=== PATIENT | female | born 1965 | race Caucasian/White ===

== ENCOUNTER → 2016-09-15 | Outpatient (CLI) | payer OTHER ==
[~2016-09-15] MED LIST: *BLDWK8; *CXR; *NEBULIZER; ACET500C; ADV250INH INH; ADVAIR100 INHALATION; ADVAIR200 INHALATION; ALBOTERNEB INHALATION; ALBUTEROL INHALATION; ALCOHOL TOP; ASP81 PO; ASPI81TA7 PO; AUG875 PO; CEFTIN500 PO; CELEBRE200 PO; FLAG500T PO; GLUCOPH500 PO; HABITROL14 TOPICAL; HABITROL2 TOPICAL; HABITROL7 TOPICAL; INSULANT SC; LANCMIS; LEVO500T PO; LISI5TAB PO; LISINOPR10 PO; NAPR500T2 PO; NEBTUBING PO; PREDNISO20 PO; PRILOSEC40 PO; PROAAER INH; TYLE325T5 PO; VICO5TAB; ZOCOR20 PO; ZOCOR40 PO; [UNRECOGNIZED DRUG - CODE] PO; [UNRECOGNIZED DRUG - CODE] PO; [UNRECOGNIZED DRUG - CODE] PO; [UNRECOGNIZED DRUG - OTHER]; [UNRECOGNIZED DRUG - OTHER]; [UNRECOGNIZED DRUG - OTHER] PO; [UNRECOGNIZED DRUG - OTHER] PO; [UNRECOGNIZED DRUG - OTHER] TOPICAL
[2016-09-15 14:26] LABS: ALBUMIN 2.5 GM/DL (3.2-5.2); ALBUMIN/GLOBULIN RATIO 0.81 (1.00-1.93); ALKALINE PHOSPHATASE 81 U/L (45-117); ALT/SGPT 14 U/L (12-78); ANION GAP 5 MEQ/L (8-16); AST/SGOT 15 U/L (15-37); BILIRUBIN,TOTAL 0.2 MG/DL (0.2-1.0); BLOOD UREA NITROGEN 5 MG/DL (7-18); CALCIUM LEVEL 8.2 MG/DL (8.5-10.1); CARBON DIOXIDE LEVEL 30 MEQ/L (21-32); CHLORIDE LEVEL 102 MEQ/L (98-107); CHOLESTEROL LEVEL 192 MG/DL (<200); CREATININE FOR GFR 0.63 MG/DL (0.55-1.02); GLOMERULAR FILTRATION RATE > 60.0 (>51); GLUCOSE, FASTING 259 MG/DL (70-105); POTASSIUM SERUM 3.8 MEQ/L (3.5-5.1); SODIUM LEVEL 137 MEQ/L (136-145); TOTAL PROTEIN 5.6 GM/DL (6.4-8.2); TRIGLYCERIDES LEVEL 444 MG/DL (<150)
== END ==
LOC: M LAB 12:57
PROVIDERS: ATTEND Family Medicine Addiction Medicine
DX: E78.5 Hyperlipidemia, unspecified (principal)

== ENCOUNTER → 2017-01-11 | Outpatient (REF) | payer OTHER ==
[2017-01-11 14:52] LABS: ALBUMIN 2.7 GM/DL (3.2-5.2); ALBUMIN/GLOBULIN RATIO 0.77 (1.00-1.93); ALKALINE PHOSPHATASE 103 U/L (45-117); ALT/SGPT 13 U/L (12-78); ANION GAP 6 MEQ/L (8-16); AST/SGOT 8 U/L (15-37); BILIRUBIN,TOTAL 0.2 MG/DL (0.2-1.0); BLOOD UREA NITROGEN 6 MG/DL (7-18); CARBON DIOXIDE LEVEL 33 MEQ/L (21-32); CHLORIDE LEVEL 95 MEQ/L (98-107); CHOLESTEROL LEVEL 229 MG/DL (<200); GLOMERULAR FILTRATION RATE > 60.0 (>51); GLUCOSE, FASTING 375 MG/DL (70-105); SODIUM LEVEL 134 MEQ/L (136-145); TOTAL PROTEIN 6.2 GM/DL (6.4-8.2); TRIGLYCERIDES LEVEL 606 MG/DL (<150)
== END ==
LOC: M LAB REF 13:49
PROVIDERS: ATTEND Family Medicine Addiction Medicine
DX: E03.8 Other specified hypothyroidism (principal)

== ENCOUNTER → 2017-01-11 | Outpatient (REF) | payer OTHER ==
[2017-01-11 14:27] LABS: ANION GAP 7 MEQ/L (8-16); BLOOD UREA NITROGEN 6 MG/DL (7-18); CALCIUM LEVEL 9.1 MG/DL (8.5-10.1); CARBON DIOXIDE LEVEL 33 MEQ/L (21-32); CHLORIDE LEVEL 94 MEQ/L (98-107); CREATININE FOR GFR 0.78 MG/DL (0.55-1.02); GLOMERULAR FILTRATION RATE > 60.0 (>51); GLUCOSE, FASTING 378 MG/DL (70-105); POTASSIUM SERUM 4.1 MEQ/L (3.5-5.1); SODIUM LEVEL 134 MEQ/L (136-145)
== END ==
LOC: M LAB REF 13:38
PROVIDERS: ATTEND Internal Medicine Rheumatology
DX: E87.5 Hyperkalemia (principal)

== ENCOUNTER 2018-06-06 13:23 | Emergency (ER) | payer OTHER ==
[~2018-06-06] VITALS: Ht 149.9 cm; Wt 67.7 kg
[2018-06-06] MEDS ORDERED: CLAR10CA3 PO (14:02)
[2018-06-06] MEDS ORDERED: FURO20TA2 PO (14:02)
[2018-06-06] MEDS ORDERED: MAGN400T2 PO (14:02)
--- NOTE | 2018-06-06 14:03 | REP ---
Clinical: Acute headache with nausea and vomiting . Comparison: 06/30/2015 . Findings: The ventricles, sulci, and cisterns are normal in position and appearance. Garcia-white differentiation is maintained. No acute intracranial hemorrhage, mass/mass effect, pathology or trauma/injury. No evidence for acute infarction. No extra-axial fluid collection. Calvarium is intact. Paranasal sinuses and mastoid air cells are clear. Impression: Normal noncontrast head CT. No evidence for acute intracranial pathology or trauma/injury. Electronically Signed by Antonio Kirkpatrick MD 06/06/2018 01:54 P
[2018-06-06] MEDS ORDERED: REGL10TA6 PO (14:18)
[2018-06-06 14:26] VITALS: BP 124/65
== END 2018-06-06 14:29 | disposition home or self-care (01) ==
LOC: M ED 13:23
DX: R51 Headache (principal); Z86.73 Personal history of transient ischemic attack (TIA), and cerebral infarction without residual deficits; E11.9 Type 2 diabetes mellitus without complications; F17.200 Nicotine dependence, unspecified, uncomplicated; Z79.899 Other long term (current) drug therapy

== ENCOUNTER → 2019-05-09 | Outpatient (REF) | payer OTHER, MEDICAID ==
[~2019-05-09] MED LIST changes: +CLAR10CA3 PO; +FURO20TA2 PO; +MAGN400T2 PO; +REGL10TA6 PO
[2019-05-09 13:25] LABS: BASO # 0.1 10^3/uL (0.0-0.2); BASO % 0.8 % (0.0-1.0); EOS # 0.1 10^3/uL (0.0-0.5); EOS % 1.3 % (0.0-3.0); HEMATOCRIT 44.1 % (36.0-47.0); HEMOGLOBIN 14.4 g/dl (12.0-15.5); LYMPH # 3.5 10^3/uL (1.5-5.0); LYMPH % 39.2 % (24.0-44.0); MEAN CORPUSCULAR HEMOGLOBIN 28.3 pg (27.0-33.0); MEAN CORPUSCULAR HGB CONC 32.7 g/dl (32.0-36.5); MEAN CORPUSCULAR VOLUME 86.8 fl (80.0-96.0); MONO # 0.4 10^3/uL (0.0-0.8); MONO % 4.9 % (0.0-5.0); NEUTROPHILS # 4.8 10^3/uL (1.5-8.5); NEUTROPHILS % 53.5 % (36.0-66.0); PLATELET COUNT, AUTOMATED 282 10^3/uL (150-450); RED BLOOD COUNT 5.08 10^6/uL (4.00-5.40)
[2019-05-09 13:44] LABS: HEMOGLOBIN A1c 7.7 %
[2019-05-09 13:50] LABS: ALBUMIN 3.4 GM/DL (3.2-5.2); ALT/SGPT 26 U/L (12-78); BILIRUBIN,TOTAL 0.4 MG/DL (0.2-1.0); BLOOD UREA NITROGEN 14 MG/DL (7-18); CALCIUM LEVEL 9.6 MG/DL (8.5-10.1); CARBON DIOXIDE LEVEL 28 MEQ/L (21-32); CHLORIDE LEVEL 110 MEQ/L (98-107); CHOLESTEROL LEVEL 217 MG/DL (<200); CHOLESTEROL RISK RATIO 6.575 (<5); CREATININE FOR GFR 0.87 MG/DL (0.55-1.30); FREE T4 0.97 NG/DL (0.76-1.46); GLOMERULAR FILTRATION RATE > 60.0 (>51); GLUCOSE, FASTING 148 MG/DL (70-100); HDL CHOLESTEROL 33 MG/DL (>40); LDL CHOLESTEROL 133 MG/DL (<100); NON-HDL-C 184 MG/DL; POTASSIUM SERUM 4.9 MEQ/L (3.5-5.1); SODIUM LEVEL 142 MEQ/L (136-145); TOTAL PROTEIN 6.6 GM/DL (6.4-8.2); TRIGLYCERIDES LEVEL 254 MG/DL (<150)
== END ==
LOC: M LAB REF 12:56
PROVIDERS: ATTEND Nurse Practitioner Family
DX: E11.9 Type 2 diabetes mellitus without complications (principal); E55.9 Vitamin D deficiency, unspecified; E03.8 Other specified hypothyroidism

== ENCOUNTER → 2020-02-02 | Outpatient (REF) | payer OTHER, MEDICAID ==
[2020-02-02 13:11] LABS: APPEARANCE, URINE CLEAR (CLEAR); BACTERIA, URINE AUTO 1+ (NEGATIVE); BILIRUBIN, URINE AUTO NEGATIVE (NEGATIVE); BLOOD, URINE BLOOD NEGATIVE (NEGATIVE); COLOR, URINE YELLOW (YELLOW); GLUCOSE, URINE (UA) AUTO NEGATIVE (NEGATIVE); KETONE, URINE AUTO NEGATIVE (NEGATIVE); LEUKOCYTE ESTERASE, URINE AUTO NEGATIVE (NEGATIVE); NITRITE, URINE AUTO NEGATIVE (NEGATIVE); PROTEIN, URINE AUTO NEGATIVE (NEGATIVE); RBC, URINE AUTO 1 /HPF (0-3); SPECIFIC GRAVITY URINE AUTO 1.009 (1.002-1.035); SQUAMOUS EPITHELIAL CELL UR AU 1 /HPF (0-6); UROBILINOGEN, URINE AUTO 0.2 mg/dL (0.0-2.0); WBC, URINE AUTO 2 /HPF (0-3)
[2020-02-02 13:24] LABS: ALBUMIN 3.4 GM/DL (3.2-5.2); ALT/SGPT 46 U/L (12-78); BASO # 0.1 10^3/uL (0.0-0.2); BASO % 0.7 % (0.0-1.0); BILIRUBIN,TOTAL 0.2 MG/DL (0.2-1.0); BLOOD UREA NITROGEN 25 MG/DL (7-18); CALCIUM LEVEL 9.2 MG/DL (8.5-10.1); CARBON DIOXIDE LEVEL 30 MEQ/L (21-32); CHLORIDE LEVEL 106 MEQ/L (98-107); CHOLESTEROL LEVEL 164 MG/DL (<200); CREATININE FOR GFR 0.96 MG/DL (0.55-1.30); EOS # 0.1 10^3/uL (0.0-0.5); EOS % 1.6 % (0.0-3.0); GLOMERULAR FILTRATION RATE > 60.0 (>51); GLUCOSE, FASTING 156 MG/DL (70-100); HDL CHOLESTEROL 41 MG/DL (>40); HEMATOCRIT 35.6 % (36.0-47.0); HEMOGLOBIN 11.8 g/dl (12.0-15.5); LDL CHOLESTEROL 82 MG/DL (<100); LYMPH # 2.8 10^3/uL (1.5-5.0); LYMPH % 36.9 % (24.0-44.0); MEAN CORPUSCULAR HEMOGLOBIN 29.1 pg (27.0-33.0); MEAN CORPUSCULAR HGB CONC 33.1 g/dl (32.0-36.5); MEAN CORPUSCULAR VOLUME 87.7 fl (80.0-96.0); MONO # 0.5 10^3/uL (0.0-0.8); NEUTROPHILS # 4.2 10^3/uL (1.5-8.5); NEUTROPHILS % 54.5 % (36.0-66.0); NON-HDL-C 123 MG/DL; PLATELET COUNT, AUTOMATED 264 10^3/uL (150-450); POTASSIUM SERUM 4.9 MEQ/L (3.5-5.1); RED BLOOD COUNT 4.06 10^6/uL (4.00-5.40); SODIUM LEVEL 140 MEQ/L (136-145); TOTAL PROTEIN 6.5 GM/DL (6.4-8.2); TRIGLYCERIDES LEVEL 206 MG/DL (<150); WHITE BLOOD COUNT 7.6 10^3/uL (4.0-10.0)
[2020-02-02 13:27] LABS: TOTAL 25(OH) VITAMIN D 23.4 NG/ML (30.0-100.0)
[2020-02-02 13:59] LABS: HEMOGLOBIN A1c 7.5 %
[2020-02-02 14:08] LABS: CREATININE, URINE 62.3 MG/DL; MALB URINE SIEMENS 81.4 MG/L; MAU/CREAT RATIO 130.6 MCG/MG (0.0-30.0)
== END ==
LOC: M LAB REF 09:05 → MERGE 09:05
PROVIDERS: ATTEND Physician Assistant
DX: M54.9 Dorsalgia, unspecified (principal); Z79.4 Long term (current) use of insulin; S06.9X9S Unspecified intracranial injury with loss of consciousness of unspecified duration, sequela; X58.XXXS Exposure to other specified factors, sequela; E03.8 Other specified hypothyroidism; E78.5 Hyperlipidemia, unspecified

== ENCOUNTER → 2020-05-10 | Outpatient (REF) | payer OTHER, MEDICAID ==
[2020-05-10 17:36] LABS: HEMATOCRIT 38.8 % (36.0-47.0); HEMOGLOBIN 12.3 g/dl (12.0-15.5); MEAN CORPUSCULAR HEMOGLOBIN 28.9 pg (27.0-33.0); MEAN CORPUSCULAR HGB CONC 31.7 g/dl (32.0-36.5); MEAN CORPUSCULAR VOLUME 91.3 fl (80.0-96.0); PLATELET COUNT, AUTOMATED 266 10^3/uL (150-450); RED BLOOD COUNT 4.25 10^6/uL (4.00-5.40); WHITE BLOOD COUNT 7.6 10^3/uL (4.0-10.0)
[2020-05-10 17:52] LABS: ALBUMIN 3.5 GM/DL (3.2-5.2); BILIRUBIN,TOTAL 0.3 MG/DL (0.2-1.0); CALCIUM LEVEL 8.9 MG/DL (8.5-10.1); CHOLESTEROL RISK RATIO 3.782 (<5); CREATININE FOR GFR 1.5 MG/DL (0.55-1.30); GLOMERULAR FILTRATION RATE 38.7 (>51); THYROID STIMULATING HORMONE 3.57 uIU/ML (0.358-3.740); TOTAL PROTEIN 6.4 GM/DL (6.4-8.2)
[2020-05-10 18:16] LABS: HEMOGLOBIN A1c 9.1 %
[2020-05-10 19:03] LABS: CREATININE, URINE 88.2 MG/DL; MAU/CREAT RATIO 114.5 MCG/MG (0.0-30.0)
== END ==
LOC: M LAB REF 15:52
PROVIDERS: ATTEND Physician Assistant
DX: E11.49 Type 2 diabetes mellitus with other diabetic neurological complication (principal); E03.9 Hypothyroidism, unspecified; E78.5 Hyperlipidemia, unspecified

== ENCOUNTER → 2020-06-16 | Outpatient (REF) | payer OTHER, MEDICAID ==
[2020-06-16 17:09] LABS: ALBUMIN 3.3 GM/DL (3.2-5.2); BILIRUBIN,TOTAL 0.3 MG/DL (0.2-1.0); CALCIUM LEVEL 8.7 MG/DL (8.5-10.1); CREATININE FOR GFR 1.33 MG/DL (0.55-1.30); GLOMERULAR FILTRATION RATE 44.4 (>51); POTASSIUM SERUM 5.4 MEQ/L (3.5-5.1)
== END ==
LOC: M LAB REF 15:50
PROVIDERS: ATTEND Physician Assistant
DX: I10 Essential (primary) hypertension (principal); R74.8 Abnormal levels of other serum enzymes

== ENCOUNTER → 2020-07-29 | Outpatient (CLI) | payer OTHER, MEDICAID ==
--- NOTE | 2020-07-29 18:42 | REP ---
INDICATION: CELLULITIS SECOND TOE COMPARISON: None. TECHNIQUE: AP, lateral, bilateral oblique views left 2nd toe. FINDINGS: Osseous structures demonstrate generalized age-related changes. No significant osseous abnormality is appreciated to suggest osteomyelitis. No subcutaneous emphysema. IMPRESSION: Osseous structures demonstrate age related changes. No obvious abnormality. <Electronically signed by Antonio Kirkpatrick > 07/29/20 [id number]
== END ==
LOC: M WUC 14:27
PROVIDERS: ATTEND Physician Assistant
DX: L03.032 Cellulitis of left toe (principal)

== ENCOUNTER 2020-08-06 18:46 | Emergency (ER) | payer OTHER, MEDICAID ==
[~2020-08-06] VITALS: Ht 154.9 cm; Wt 81.8 kg
--- OUTSIDE RECORDS SUMMARY | 2020-08-06 18:55 | CCD ---
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 Active Not available albuterol sulfate 2.5 mg/3 mL (0.083 %) solution for nebulizatio n Active Not available albuterol sulfate HFA 90 mcg/actuation a erosol inhaler INHALE TWO PUFFS BY MOUTH EVERY FOUR HOURS NEEDED Active Not available armodafinil 150 mg tablet TAKE 1/2 TABLET BY MOUTH EVERY MORNING MAX DAILY DOSE ONE-HALF TABLET Active Not available atorvastatin 10 mg tablet Active Not av ailable azithromycin 250 mg tablet Completed 04/27 Basaglar Reynaldo U-100 Insulin 100 unit/mL (3 mL) subcutaneous A ctive Not available carbamazepine 100 mg/5 mL oral suspensio n TAKE FIVE MILLILITERS BY MOUTH TWICE DAILY Active Not available cefuroxime axetil 500 mg tablet Completed 04/15/2020 cetirizine 10 mg tablet Take 1 tablet every day by oral route for 90 days. Completed 04/19/2020 cholecalciferol (vitamin D3) 125 mcg (5,000 unit) capsule Active Not available d3 high potency 125 mcg (5000 ut) caps Completed 04/19/2020 famotidine 20 mg tablet Completed 04/15/20 famotidine 40 mg tablet Active Not avai lable fluconazole 150 mg tablet TAKE ONE TABLET BY MOUTH TODAY FOR ONE DOSE, MAY REPEAT IN THREE DAYS if SYMPTOMS DO NOT IMPROVE Active Not available furosemide 20 mg tablet Take 0.5 tablets every day by oral route for 90 days. Active Not available levocetirizine 5 mg tablet TAKE ONE TABLET BY MOUTH ONCE DAILY Active Not available loratadine 10 mg tablet Completed 04/19/20 metformin 1,000 mg tablet TAKE ONE TABLET BY MOUTH ONCE DAILY with meals Active Not available metoprolol tartrate 25 mg tablet TAKE 1/2 TABLET BY MOUTH TWICE DAILY Active No t available montelukast 10 mg tablet TAKE ONE TABLET BY MOUTH AT BEDTIME Active Not available nt vitamin d3 5000u gcap 100+30ea TAKE ONE CAPSULE BY MOUTH ONCE DAILY Active No t available omeprazole 20 mg capsule,delayed release Completed 04/19/2020 OneTouch Delica Lancets 30 gauge Active Not available OneTouch Ultra Blue Test Strip Active N ot available OneTouch Ultra2 Meter Active Not availa ble oxycodone 5 mg tablet TAKE ONE TABLET BY MOUTH ONCE DAILY NEEDED MAX DAILY DOSE ONE TABLET Active Not available pantoprazole 40 mg tablet,delayed release Completed 04/19/2020 quetiapine 25 mg tablet TAKE ONE TABLET BY MOUTH AT BEDTIME ONCE DAILY Active Not available Santyl 250 unit/gram topical ointment Completed 04/19/2020 sulfamethoxazole 800 mg-trimethoprim 160 mg tablet TAKE ONE TABLET BY MOUTH EVERY TWELVE HOURS FOR 10 DAYS Active Not available tramadol 50 mg tablet TAKE ONE TABLET BY MOUTH TWICE DAILY NEEDED FOR PAIN MAX DAILY DOSE TWO TABLETS Active Not available vitamin d3 50 mcg (1999 ut) caps Active Not available Problems Name Status Onset Date Source Open-angle Glaucoma Active 05/10/2012 History Tobacco Use and Exposure - Finding Active 05/10/2012 History Vitamin D Deficiency Active 06/21/2012 History Finding of Body Region Unknown 10/25/2012 History Allergic Rhinitis Active 01/31/2013 History Menopause Present Active 01/31/2013 History Disorder of Nervous System Due to Type 2 Diabetes Mellitus Activ e 08/28/2013 History Fitting Procedure Active 07/20/2015 History Abnormal Gait Active 2015 History Hyperlipidemia Active 09/15/2015 History Hypothyroidism Active 10/19/2016 History Clinical Finding Unknown 02/22/2017 History Influenza Vaccine Needed Unknown 04/05/2018 History Breast Neoplasm Screening Status Active 03/21/2019 History 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 12/08/2019 His tory Open Wound of Lower Limb Active 12/08/2019 History Intracranial Injury Active 12/08/2019 History Subarachnoid Hemorrhage Active 12/08/2019 History Subdural Hemorrhage Active 12/08/[address] Concept Active 12/08/2019 History Long-term Current Use of Insulin Active 12/16/2019 History Backache Active 12/19/2019 History Liver Function Tests Abnormal Active 07/01/2020 Chronic Renal Insufficiency Active 07/01/2020 Anxiety Active History Hypertensive Disorder Active History Asthma Active History Gastroesophageal Reflux Disease without Esophagitis Active History Finding of Esophagus Active History Procedures Date Name Performed by 05/14/2020 , Liver [facility] [address] [place] [address] ( (Work Place) 07/29/2020 XR, Toe(s), 2 or More View Information n ot available Notes: Breast Surgery: right lumpectomy, left elbow cyst removal 2008 , Left shoulder, relived pressure from brain, drained fluid from lungs, intubated Results Lab Results Date Name Specimen Result Interpretation Description Value Range Status Address 07/29/2020 Wound Culture FOOT No observation recorded. [facility]: [address] [place] [address] 06/16/2020 CMP, Serum or Plasma Blood venous High Glu cose, Fasting 287 mg/dL 70-100 mg/dL [facility] nter: 0 [facility] Blood venous High Blood Urea Nitrogen 23 mg/dL 7-18 mg/dL [facility]: [address] [place] [address] Blood venous High Creatinine for GFR 1.33 mg/dL 0.55-1.30 mg/dL [facility]: [address] [place] [address] Blood venous Low Glomerular Filtration Rate 44 .4 >51 [facility]: [address] [place] [address] Blood venous Low Sodium Level 133 mEq/L 136-14 5 mEq/L [facility]: [address] [place] [address] Blood venous High Potassium Serum 5.4 mEq/L 3.5 -5.1 mEq/L [facility]: [address] [place] [address] Blood venous Normal Chloride Level 102 mEq/L 98-1 07 mEq/L [facility]: [address] [place] [address] Blood venous Normal Carbon Dioxide Level 29 mEq/L 21-32 mEq/L [facility]: [address] [place] [address] Blood venous Low Anion Gap 2 mEq/L 8-16 mEq/L [facility]: [address] [facility] Blood venous Normal Calcium Level 8.7 mg/dL 8.5-1 0.1 mg/dL [facility]: [address] [facility] Blood venous Normal AST/SGOT 18 U/L 7-37 U/L Breana l [facility]: [address] [facility] Blood venous Normal ALT/SGPT 29 U/L 12-78 U/L Fin al [facility]: [address] [facility] Blood venous High Alkaline Phosphatase 123 U/L 45-117 U/L [facility]: [address] [place] [address] Blood venous Normal Bilirubin,total 0.3 mg/dL 0.2 -1.0 mg/dL [facility]: [address] [place] [address] Blood venous Low Total Protein 6.0 gm/dL 6.4-8 .2 gm/dL [facility]: [address] [place] [address] Blood venous Normal Albumin 3.3 gm/dL 3.2-5.2 gm/ dL [facility]: [address] [place] [address] Blood venous Normal Albumin/globulin Ratio 1.2 1.2-2.2 [facility]: [address] [place] [address] 06/16/2020 Gamma Glutamyltranspeptidase High Gamma Glutamyltranspeptidase 78 U/L 5-55 U/L [facility] nter: [address] [place] [address] 05/10/2020 Cbc Blood venous Normal White Blood Count 7.6 10 4.0-10.[address] [facility]: [address] [place] [address] Blood venous Normal Red Blood Count 4.25 10 4.00- 5.[address] [facility]: [address] [place] [address] Blood venous Normal Hemoglobin 12.3 g/dL 12.0-15. 5 g/dL [facility]: [address] [place] [address] Blood venous Normal Hematocrit 38.8 % 36.0-47.0 % [facility]: [address] [place] [address] Blood venous Normal Mean Corpuscular Volume 91.3 fL 80.0-96.[address] [facility]: [address] [place] [address] Blood venous Normal Mean Corpuscular Hemoglob in 28.9 pg 27.0-33.[address] [facility]: [address] [place] [address] Blood venous Low Mean Corpuscular HGB Conc 31.7 g/dL 32.0-36.5 g/dL [facility]: [address] [place] [address] Blood venous High Red Cell Distribution Width 1 5.0 % 11.5-14.5 % [facility]: [address] [place] [address] Blood venous Normal Platelet Count, Automated 266 10 150-[address] [facility]: [address] [place] [address] Blood venous Normal Nucleated Red Blood Cell % 0. 0 % 0-0 % [facility]: [address] [place] [address] 05/10/2020 CMP, Serum or Plasma Blood venous High Glu cose, Fasting 276 mg/dL 70-100 mg/dL [facility] nter: [address] [place] [address] Blood venous High Blood Urea Nitrogen 34 mg/dL 7-18 mg/dL [facility]: [address] [place] [address] Blood venous High Creatinine for GFR 1.50 mg/dL 0.55-1.30 mg/dL [facility]: [address] [place] [address] Blood venous Low Glomerular Filtration Rate 38 .7 >51 [facility]: [address] [place] [address] Blood venous Normal Sodium Level 139 mEq/L 136-14 5 mEq/L [facility]: [address] [place] [address] Blood venous Normal Potassium Serum 5.0 mEq/L 3.5 -5.1 mEq/L [facility]: [address] [place] [address] Blood venous Normal Chloride Level 106 mEq/L 98-1 07 mEq/L [facility]: [address] [place] [address] Blood venous Normal Carbon Dioxide Level 29 mEq/L 21-32 mEq/L [facility]: [address] [place] [address] Blood venous Low Anion Gap 4 mEq/L 8-16 mEq/L [facility]: [address] [facility] Blood venous Normal Calcium Level 8.9 mg/dL 8.5-1 0.1 mg/dL [facility]: [address] [facility] Blood venous Normal AST/SGOT 27 U/L 7-37 U/L Breana l [facility]: [address] [facility] Blood venous Normal ALT/SGPT 40 U/L 12-78 U/L [facility]: [address] [facility] Blood venous High Alkaline Phosphatase 147 U/L 45-117 U/L [facility]: [address] [facility] Blood venous Normal Bilirubin,total 0.3 mg/dL 0.2 -1.0 mg/dL [facility]: 0 [facility] Blood venous Normal Total Protein 6.4 gm/dL 6.4-8 .2 gm/dL [facility]: [address] [place] [address] Blood venous Normal Albumin 3.5 gm/dL 3.2-5.2 gm/ dL [facility]: [address] [place] [address] Blood venous Normal Albumin/globulin Ratio 1.2 1.2-2.2 [facility]: [address] [place] [address] 05/10/2020 Lipid Panel, Blood Blood venous High Trigl ycerides Level 241 mg/dL <150 mg/dL [facility] nter: [address] [facility] Blood venous Normal Cholesterol Level 174 mg/dL < 200 mg/dL [facility]: [address] [facility] Blood venous Normal HDL Cholesterol 46 mg/dL >40 mg/dL [facility]: 0 [facility] Blood venous Normal LDL Cholesterol 80 mg/dL <100 mg/dL [facility]: 0 [facility] Blood venous Normal Non-hdl-c 128 mg/dL [facility]: [address] [facility] Blood venous Normal Cholesterol Risk Ratio 3.[address] <5 [facility]: 0 [facility] 05/10/2020 TSH, Serum or Plasma Blood venous Normal Thyroid Stimulating Hormone 3.570 uIU/mL 0.358-3.740 uIU/mL Final [facility]: [address] [place] [address] 05/10/2020 HbA1C (Hemoglobin a1C), Blood Normal Hemogl obin a1C 9.1 % Final [facility]: [address] [place] [address] High Estimated Average Glucose 214 mg/dL 60-110 mg/dL Final [facility]: [address] [place] [address] 05/10/2020 Microalbumin, Urine Urine Normal Creatinine, Urin e 88.2 mg/dL Final [facility]: [address] [place] [address] Urine Normal Malb Urine Siemens 101.0 mg/L [facility]: [address] [place] [address] Urine High Durga/creat Ratio 114.5 mcg/mg 0.0-30. 0 mcg/mg [facility]: [address] [place] [address] 04/19/2020 COVID-19 RNA (SARS-CoV-2), QL, jig worker-PCR, Respiratory Specimen Nasopharyngeal Normal Sars Cov 2 RNA not detected not detected Fi nal Associated Clinical [facility] ([facility] [facility]): [address], [place] Past Encounters 08/03/2020 Disorder of Nervous System Due to Type 2 Diabetes Mellitus; Ulcer of Toe Alisson Trejo MD: [address] [facility] [address] [place] [phone], Ph. 07/29/2020 Cellulitis of Toe of Left Foot; Diabetes Mellitus; Vaginitis ADEOLA VillatoroC: [address] [facility] [address] [address], Ph. 06/30/2020 Chronic Renal Insufficiency; Liver Function Tests Abnormal; Disorder of Nervous System Due to Type 2 Diabetes Mellitus Jeremias Ryder MD: [address] [facility] [address] [address], Ph. 06/16/2020 Hypertensive Disorder; Elevated Liver Enzymes Level GLADIS SantosC: [address] [facility] [address], [place] [address], Ph. 06/07/2020 Administration of Influenza Vaccine Cristian Richardson, RPA-C: [address] [facility], [facility] [address], [place] [address], Ph. 05/14/2020 Hypertensive Disorder; Elevated Liver Enzymes Level; Disorder of Nervous System Due to Type 2 Diabetes Mellitus Cristian Richardson, RPA-C: [address] [facility], [facility] [address], [place] [address], Ph. 05/10/2020 Disorder of Nervous System Due to Type 2 Diabetes Mellitus; Hyperlipidemia; Hypothyroidism Cristian Richardson, RPA-C: [address] [facility], [facility] [address], [place] [address], Ph. 04/19/2020 Cough; Acute Exacerbation of Chronic Obstructive Airways Disease; Allergic Rhinitis Cristian Richardson, RPA-C: [address] [facility], [facility] [address], [place] [address], Ph. Social History Tobacco Smoking Status Heavy Tobacco Smoker (1/2 PPD) Vaccine List Vaccine Type influenza, injectable, quadrivalent, pre servative free 06/07/20200.5 mL influenza, seasonal, injectable 07/20/20170.5 mL 04/05/20180.5 mL Plan of Care Patient Instructions Start azithromycin and treat for COPD fl are; Diflucan only if needed for yeast infection. Use nebulizer three times daily for the next 1-2 days, then as needed for increased wheezing, cough, or shortness of breath. Swabbed for COVID today, quarantine until results are received. We will call you with the results. Also, will send for Advair (or possibly similar alternative based on insurance response) to restart as you need a maintenance inhaler. Stop Zyrtec. Continue Xyzal daily. Add Singulair (Montelukast) once daily at bedtime for allergy control. Reminders Provider Appointments None recorded. Lab None recorded. Referral None recorded. Procedures None recorded. Surgeries None recorded. Imaging None recorded. Vitals 08/03/2020 11:50AM ESTABLISHED [id number] Height Weight BMI Blood Pressure 61 in 185 lbs 35 kg/m2 149/71 mm[Hg] 07/29/2020 01:10PM SAME DAY 20 Height Weight BMI Blood Pressure 61 in 186 lbs 12.8 oz 35.3 kg/m2 121/55 mm[H g] 06/30/2020 02:00PM TELEHEALTH 20 Height 61 in 06/07/2020 01:30PM NURSE Height 61 in 05/14/2020 03:30PM TELEHEALTH 20 Height 61 in 04/19/2020 02:30PM SAME DAY 20 Height Weight BMI Blood Pressure 61 in 174 lbs 2 oz 32.9 kg/m2 168/87 mm[Hg] 02/06/2020 Height Weight BMI Blood Pressure 61 in 175 lbs 6.4 oz 33.26 kg/m2 136/84 mm[Hg ] 01/09/2020 Height Weight BMI Blood Pressure 61 in 169 lbs 32.05 kg/m2 141/81 mm[Hg] 12/19/2019 Height Weight BMI Blood Pressure 61 in 170 lbs 4 oz 32.28 kg/m2 115/79 mm[Hg] 12/08/2019 Height Weight BMI Blood Pressure 61 in 169 lbs 14.4 oz 32.22 kg/m2 149/82 mm[H g] 09/03/2019 Height Weight BMI Blood Pressure 61 in 171 lbs 3.2 oz 32.46 kg/m2 145/87 mm[Hg ] 11/15/2018 Height Weight BMI Blood Pressure 61 in 161 lbs 4 oz 30.58 kg/m2 133/74 mm[Hg] 06/13/2018 Height Weight BMI Blood Pressure 61 in 168 lbs 3.2 oz 31.90 kg/m2 121/67 mm[Hg ]
--- OUTSIDE RECORDS SUMMARY | 2020-08-06 18:56 | CCD | Continuity of Care Document ---
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 Role Phone Salma Mcdowell Nirav FLIGHT ENGINEER MANAGER [employer] [phone] Cristian Richadrson RPA-C AUT[employer] [phone] Problems Active Problems Provider Date Type 2 diabetes mellitus Onset: 11/21/19 15 Pure hypercholesterolemia Gage Tran MD Onset: 020 Social History Type Date Description Comments Sex Unknown ETOH Use Denies alcohol use ETOH Use Denies alcohol use Tobacco Use Start: Unknown Patient is a current smoker, smo kes every day Tobacco Use Start: Unknown Patient is a current smoker, smo kes every day 1 pack a day Allergies, Adverse Reactions, Alerts Description No Known Drug Allergies Medications Active Medications SIG Qnty Indications Ordering Provide r Date Hydrocodone-Acetaminophen 5-325mg Tablets 1 taB everyday as needed pain 10tabs Sonya barnes MD 04/21/2015 Vicodin 5-300mg Tablets 1-2 tabs q4-6hr as needed for pain after surgery 40tabs Terence Snow, DO 04/08/2015 Percocet 5-325mg Tablets 1 tabs every 4-6 hours prn/pain 60tabs Terence Snow, DO 02/24/2015 Aspir-[address] kim colón 30tabs Terence Snow, DO 11/26/2014 Lipitor 12.5mg Tablets 1 by mouth every day 30tabs Terence Snow, DO 11/26/2014 Pepcid 40mg/5ML Suspension Rec prn Unknown Metformin HCL 1000mg Tablets Unknown Claritin 10mg Capsules Unknown Humalog use as directed sliding scale Unknow n Immunizations Description No Information Available Vital Signs Date Vital Result Comment 04/09/2020 10:55am Body Temperature 96.5 F Height 60 inches 5'0" Weight 170.12 lb BMI (Body Mass Index) 33.2 kg/m2 Results Description No Information Available Procedures Date Code Description Status 05/27/2020 72119 FX CL Vertebral Body Wi Cast/Bra ce Completed 04/09/2020 06210 X-Ray Spine Lumbosacral Complete Inc Bending Views Min Of 6 Completed 04/09/2020 53798 X-Ray Spine Thoracic Ap & Latera l 2 Views Completed Medical Devices Description No Information Available Encounters Type Date Location Provider Dx Diagnosis Office Visit 05/27/2020 8:15a [place] Gage Tran MD S32.010A Wedge compression fracture of first lumbar vertebra, init M51.26 Other intervertebral disc di splacement, lumbar region M48.061 Spinal stenosis, lumbar lilliam on without neurogenic susan F17.210 Nicotine dependence, cigaret axel, uncomplicated Office Visit 04/09/2020 9:30a [place] Gage Tran MD M54.5 Low back pain Assessments Date Code Description Provider 05/27/2020 S32.010A Wedge compression fr acture of first lumbar vertebra, initial encounter for closed fracture Gage Tran MD 05/27/2020 S32.010A Wedge compression fr acture of first lumbar vertebra, initial encounter for closed fracture Gage Tran MD 05/27/2020 M51.26 Other intervertebral disc displa cement, lumbar region Gage Tran MD 05/27/2020 M48.061 Spinal stenosis, lum bar region without neurogenic claudication Gage Tran MD 05/27/2020 F17.210 Nicotine dependence, cigarettes, uncomplicated Gage Tran MD 04/09/2020 M54.5 Low back pain Gage Tran MD Plan of Treatment Future Appointment(s):* 06/24/2020 3:00 pm - [facility] 05/27/2020 - Gage Tran MD* S32.010A Wedge compression fracture of first lumbar vertebra, initial encounter for closed fracture * M51.26 Other intervertebral disc displacement, lumbar region* Follow up:* in 8-10 weeks with either MKM or IID for low back recheck per BLB please. * M48.061 Spinal stenosis, lumbar region without neurogenic claudication * F17.210 Nicotine dependence, cigarettes, uncomplicated Functional Status Description No Information Available Mental Status Description No Information Available Referrals Refer to Dr Reason for Referral Status Appt Date Gage Tran MD AUTH FOR PT EVAL FOR L-SPINE [id number]. PAT GOING TO [facility]. PASSED TO PT DEPT. Created [facility], [place] [address] [phone] Gage Tran MD ADDITIONAL VISITS FOR L-SPINE. Created [facility], [place] [address] [phone] Gage Tran MD DME PER SHADE Hardy AT [facility] AUTH REQUIRED FOR [address] L[address] BACK BRACE ([id number]) BASED ON MED. NECC . AND COVERED AT 100% TO GRECIA NT CALL REF #[id number] Created [facility], [place] [address] [phone]
--- OUTSIDE RECORDS SUMMARY | 2020-08-06 18:56 | CCD ---
Author Organization Unknown Address [address] [place] [address] Phone [phone] Care Team Providers Care Building Certifier Name Role Phone Cristian Richardson Kishan Unavailable Unavailable Allergies Code Code System Name Reaction Severity Status Onset 128116 RxNorm Lacosamide Active 12/19/2019 Notes: SEASONAL - Reaction: itchy eyes, stuffy/ runny nose Medications Name Status Start Date Stop Date Advair Diskus 100 mcg-50 mcg/dose powder for inhalation Inhale 1 puff twice a day by inhalation route. Active Not available albuterol sulfate 2.5 mg/3 mL (0.083 %) solution for nebulizatio n Active Not available albuterol sulfate HFA 90 mcg/actuation aerosol inhaler Active Not available armodafinil 150 mg tablet TAKE 1/2 TABLET BY MOUTH EVERY MORNING MAX DAILY DOSE ONE-HALF TABLET Active Not available atorvastatin 10 mg tablet TAKE ONE TABLET BY MOUTH ONCE DAILY Active Not available azithromycin 250 mg tablet Completed 04/27 Basaglar KwikPen U-100 Insulin 100 unit/mL (3 mL) subcutaneous [...] 04/19/2020 famotidine 20 mg tablet Completed 04/15/20 20 famotidine 40 mg tablet Take 1 tablet twice a day by oral route for 90 days. Active Not available fluconazole 150 mg tablet Completed 2019 furosemide 20 mg tablet Take 0.5 tablets every day by oral route for 90 days. Active Not available levocetirizine 5 mg tablet TAKE ONE TABLET BY MOUTH ONCE DAILY Active Not available loratadine 10 mg tablet Completed 04/19/20 metformin 1,000 mg tablet Active Not av ailable metoprolol tartrate 25 mg tablet Take 0.5 tablets twice a day by oral route for 90 days. Active Not available montelukast 10 mg tablet TAKE ONE [...] release Completed 04/19/2020 quetiapine 25 mg tablet Take 1 tablet every day by oral route at bedtime for 30 days. Active Not available Santyl 250 unit/gram topical ointment Completed 04/19/2020 tramadol 50 mg tablet TAKE ONE TABLET BY MOUTH TWICE DAILY NEEDED MAX DAILY DOSE TWO TABLETS Active Not [...] Finding Unknown 02/22/2017 History Influenza Vaccine Needed Active 04/05/2018 History Breast Neoplasm Screening Status Active 03/21/2019 History 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 12/08/2019 His tory Open Wound of Lower Limb Active 12/08/[address] Concept Active 12/08/[address] Concept Active 12/08/[address] Concept Active 12/08/[address] Concept Active 12/08/2019 History Long-term Current Use of Insulin Active 12/16/2019 History Backache Active 12/19/2019 History Hypertensive Disorder Active History Asthma Active History Gastroesophageal Reflux Disease without Esophagitis Active History SNOMED CT Concept Active History Procedures Date Name Performed by 05/14/2020 , Liver [facility] [address] [place] [address] (Work Place) Notes: Breast Surgery: right lumpectomy, left elbow cyst removal 2008 , Left shoulder, relived pressure from brain, drained fluid from lungs, intubated Results Lab Results Date Name Specimen Result Interpretation Description Value Range Status Address 04/19/2020 COVID-19 RNA (SARS-CoV-2), QL, cork sorter-PCR, Respiratory Specimen Nasopharyngeal Normal Sars Cov 2 RNA not detected not detected Fi nal Associated Clinical Labs ([facility]): [address] Past Encounters 05/14/2020 Hypertensive Disorder; Elevated Liver Enzymes Level; Disorder of Nervous System Due to Type 2 Diabetes Mellitus Cristian Richardson, RPA-C: [address] [facility], [facility] [address], [place] [address], Ph. 05/10/2020 Disorder of Nervous System Due to Type 2 Diabetes Mellitus; Hyperlipidemia; Hypothyroidism Cristian Richardson, RPA-C: [address] [facility], [facility] [address], [place] [address], Ph. 04/19/2020 Cough; Acute Exacerbation of Chronic Obstructive Airways Disease; Allergic Rhinitis Cristian Richardson, RPA-C: [address] [facility], [facility] [address], [place] [address], Ph. Social History Tobacco Smoking Status Heavy Tobacco Smoker (1/2 PPD) Vaccine List Vaccine Type influenza, seasonal, injectable 07/20/20170.5 mL 04/05/20180.5 mL [...] Surgeries None recorded. Imaging None recorded. Vitals 05/14/2020 03:30PM TELEHEALTH 20 Height 61 in 04/19/2020 02:30PM SAME DAY 20 Height Weight BMI Blood Pressure 61 in 174 lbs 2 oz 32.9 kg/m2 168/87 mm[Hg] 02/06/2020 Height Weight Blood Pressure 61 in 175 lbs 6.4 oz 136/84 mm[Hg] 01/09/2020 Height Weight Blood Pressure 61 in 169 lbs 141/81 mm[Hg] 12/19/2019 Height Weight Blood Pressure 61 in 170 lbs 4 oz 115/79 mm[Hg] 12/08/2019 Height Weight Blood Pressure 61 in 169 lbs 14.4 oz 149/82 mm[Hg] 09/03/2019 Height Weight Blood Pressure 61 in 171 lbs 3.2 oz 145/87 mm[Hg] 11/15/2018 Height Weight Blood Pressure 61 in 161 lbs 4 oz 133/74 mm[Hg] 06/13/2018 Height Weight Blood Pressure 61 in 168 lbs 3.2 oz 121/67 mm[Hg]
--- OUTSIDE RECORDS SUMMARY | 2020-08-06 18:56 | CCD ---
Author Organization Unknown Address [address] [place] [address] Phone [phone] Care Team Providers Care Customer Energy Specialist Name Role Phone Cristian Richardson Kishan Unavailable Unavailable Allergies Code Code System Name Reaction Severity Status Onset 291441 RxNorm Lacosamide Active 12/19/2019 Notes: SEASONAL - [...] tablet TAKE ONE TABLET BY MOUTH EVERY EVENING Active Not available azithromycin 250 mg tablet Completed 04/27 Basaglar KwikPen U-100 Insulin 100 unit/mL (3 mL) subcutaneous A ctive Not available carbamazepine 100 mg/5 mL oral suspension Active Not available cefuroxime axetil 500 mg [...] Active Not available levocetirizine 5 mg tablet Active Not a vailable loratadine 10 mg tablet Completed 04/19/20 metformin [...] Not availa ble oxycodone 5 mg tablet Active Not availa ble pantoprazole 40 mg tablet,delayed release Completed 04/19/2020 quetiapine 25 mg tablet Take 1 tablet every day by oral route at bedtime for 30 days. Active Not available Santyl 250 unit/gram topical ointment Completed 04/19/2020 tramadol 50 mg tablet Active Not availa ble vitamin d3 50 mcg (2000 ut) caps Active Not available Problems Name [...] Active 07/01/2020 Chronic Renal Insufficiency Active 07/01/2020 Hypertensive Disorder Active History Asthma Active History Gastroesophageal Reflux Disease without Esophagitis Active History SNOMED CT Concept Active History Procedures Date Name Performed by 05/14/2020 , Liver [facility] [address] [place] [address] (Work Place) Notes: Breast Surgery: right lumpectomy, left elbow cyst removal 2008 , Left shoulder, relived pressure from brain, drained fluid from lungs, intubated Results Lab Results Date Name Specimen Result Interpretation Description Value Range Status Address 06/16/2020 CMP, Serum or Plasma Blood venous High Glu cose, Fasting 287 mg/dL 70-100 mg/dL [facility] nter: [address] [place] [address] Blood venous High Blood Urea Nitrogen 23 mg/dL 7-18 mg/dL [facility]: [address] [place] [address] Blood venous High Creatinine for GFR 1.33 mg/dL 0.55-1.30 mg/dL [facility]: [address] [place] [address] Blood venous Low Glomerular Filtration Rate 44 .4 >51 [facility]: [address] [place] [address] Blood venous Low Sodium Level 133 mEq/L 136-14 5 mEq/L [facility]: [address] [place] [address] Blood venous High Potassium Serum 5.4 mEq/L 3.5 -5.1 mEq/L [facility]: [address] [place] [address] Blood venous Normal Chloride Level 102 mEq/L 98-1 07 mEq/L [facility]: [address] [place] [address] Blood venous Normal Carbon Dioxide Level 29 mEq/L 21-32 mEq/L [facility]: [address] [place] [address] Blood venous Low Anion Gap 2 mEq/L 8-16 mEq/L [facility]: [address] [place] [address] Blood venous Normal Calcium Level 8.7 mg/dL 8.5-1 0.1 mg/dL [facility]: 0 [facility] Blood venous Normal AST/SGOT 18 U/L 7-37 U/L [facility] [place]: [address] [place] [address] Blood venous Normal ALT/SGPT 29 U/L 12-78 U/L [facility]: [address] [place] [address] Blood venous High Alkaline Phosphatase 123 U/L 45-117 U/L [facility]: [address] [place] [address] Blood venous Normal Bilirubin,total 0.3 mg/dL 0.2 -1.0 mg/dL [facility]: [address] [place] [address] Blood venous Low Total Protein 6.0 gm/dL 6.4-8 .2 gm/dL [facility]: [address] [place] [address] Blood venous Normal Albumin 3.3 gm/dL 3.2-5.2 gm/ dL [facility]: [address] [place] [address] Blood venous Normal Albumin/globulin Ratio 1.2 1.2-2.2 [facility]: [address] [place] [address] 06/16/2020 Gamma Glutamyltranspeptidase High Gamma Glutamyltranspeptidase 78 U/L 5-55 U/L [facility] nter: [address] [place] [address] 05/10/2020 Cbc Blood venous Normal White Blood Count 7.6 10 4.0-10.0 10 [facility]: [address] [place] [address] Blood venous Normal Red Blood Count 4.25 10 4.00- 5.40 10 [facility]: [address] [place] [address] Blood venous Normal Hemoglobin 12.3 g/dL 12.0-15. 5 g/dL [facility]: [address] [place] [address] Blood venous Normal Hematocrit 38.8 % 36.0-47.0 % [facility]: [address] [place] [address] Blood venous Normal Mean Corpuscular Volume 91.3 fL 80.0-96.0 fL [facility]: [address] [place] [address] Blood venous Normal Mean Corpuscular Hemoglob in 28.9 pg 27.0-33.0 pg [facility]: [address] [place] [address] Blood venous Low Mean Corpuscular HGB Conc 31.7 g/dL 32.0-36.5 g/dL [facility]: [address] [place] [address] Blood venous High Red Cell Distribution Width 1 5.0 % 11.5-14.5 % [facility]: [address] [place] [address] Blood venous Normal Platelet Count, Automated 266 10 150-450 10 [facility]: [address] [facility] Blood venous Normal Nucleated Red Blood Cell % 0. 0 % 0-0 % [facility]: [address] [place] [address] 05/10/2020 CMP, Serum or Plasma Blood venous High Glu cose, Fasting 276 mg/dL 70-100 mg/dL [facility] nter: [address] [place] [address] Blood venous High Blood Urea Nitrogen 34 mg/dL 7-18 mg/dL [facility]: [address] [place] [address] Blood venous High Creatinine for GFR 1.50 mg/dL 0.55-1.30 mg/dL [facility]: [address] [place] [address] Blood venous Low Glomerular Filtration Rate 38 .7 >51 [facility]: [address] [place] [address] Blood venous Normal Sodium Level 139 mEq/L 136-14 5 mEq/L [facility]: [address] [place] [address] Blood venous Normal Potassium Serum 5.0 mEq/L 3.5 -5.1 mEq/L [facility]: [address] [place] [address] Blood venous Normal Chloride Level 106 mEq/L 98-1 07 mEq/L [facility]: [address] [place] [address] Blood venous Normal Carbon Dioxide Level 29 mEq/L 21-32 mEq/L [facility]: [address] [place] [address] Blood venous Low Anion Gap 4 mEq/L 8-16 mEq/L [facility]: [address] [place] [address] Blood venous Normal Calcium Level 8.9 mg/dL 8.5-1 0.1 mg/dL [facility]: [address] [facility] Blood venous Normal AST/SGOT 27 U/L 7-37 U/L [facility]: [address] [place] [address] Blood venous Normal ALT/SGPT 40 U/L 12-78 U/L [facility]: [address] [facility] Blood venous High Alkaline Phosphatase 147 U/L 45-117 U/L [facility]: [address] [facility] Blood venous Normal Bilirubin,total 0.3 mg/dL 0.2 -1.0 mg/dL [facility]: 0 [facility] Blood venous Normal Total Protein 6.4 gm/dL 6.4-8 .2 gm/dL [facility]: [address] [place] [address] Blood venous Normal Albumin 3.5 gm/dL 3.2-5.2 gm/ dL [facility]: [address] [place] [address] Blood venous Normal Albumin/globulin Ratio 1.2 1.2-2.2 [facility]: [address] [place] [address] 05/10/2020 Lipid Panel, Blood Blood venous High Trigl ycerides Level 241 mg/dL <150 mg/dL [facility] nter: [address] [place] [address] Blood venous Normal Cholesterol Level 174 mg/dL < 200 mg/dL [facility]: [address] [place] [address] Blood venous Normal HDL Cholesterol 46 mg/dL >40 mg/dL [facility]: [address] [place] [address] Blood venous Normal LDL Cholesterol 80 mg/dL <100 mg/dL [facility]: [address] [place] [address] Blood venous Normal Non-hdl-c 128 mg/dL [facility]: [address] [place] [address] Blood venous Normal Cholesterol Risk Ratio 3.782 <5 [facility]: [address] [place] [address] 05/10/2020 TSH, Serum or Plasma Blood venous Normal Thyroid Stimulating Hormone 3.570 uIU/mL 0.358-3.740 uIU/mL [facility] ical Center: [address] [place] [address] 05/10/2020 HbA1C (Hemoglobin a1C), Blood Normal Hemogl obin a1C 9.1 % [facility]: [address] [place] [address] High Estimated Average Glucose 214 mg/dL 60-110 mg/dL [facility]: [address] [place] [address] 05/10/2020 Microalbumin, Urine Urine Normal Creatinine, Urin e 88.2 mg/dL [facility]: [address] [facility] Urine Normal Malb Urine Siemens 101.0 mg/L [facility]: [address] [facility] Urine High Durga/creat Ratio 114.5 mcg/mg 0.0-30. 0 mcg/mg [facility]: [address] [facility] 04/19/2020 COVID-19 RNA (SARS-CoV-2), QL, wrapping clerk-PCR, Respiratory Specimen Nasopharyngeal Normal Sars Cov 2 RNA not detected not detected Fi nal Associated Clinical Labs ([facility]): [address], [place] Past Encounters 06/30/2020 Chronic Renal Insufficiency; Liver Function Tests Abnormal; Disorder of Nervous System Due to Type 2 Diabetes Mellitus Jeremias Ryder MD: [address] [facility] [address], [place] [address], Ph. 06/16/2020 Hypertensive Disorder; Elevated Liver Enzymes Level Lori Portillo RPA-C: [address] [facility] [address], [place] [address], Ph. 06/07/2020 Administration of Influenza Vaccine Cristian Richardson RPA-C: [address] [facility], [facility] [address], [place] [address], Ph. 05/14/2020 Hypertensive Disorder; Elevated Liver Enzymes Level; Disorder of Nervous System Due to Type 2 Diabetes Mellitus Cristian Richardson, RPA-C: [address] [facility] [address], [place] [address], Ph. 05/10/2020 Disorder of Nervous System Due to Type 2 Diabetes Mellitus; Hyperlipidemia; Hypothyroidism Cristian Richardson, RPA-C: [address] [facility], [facility] [address], [place] [address], Ph. 04/19/2020 Cough; Acute Exacerbation of Chronic Obstructive Airways Disease; Allergic Rhinitis Cristian Richardson, RPA-C: [address] [facility], [facility] [address], [place] [address], Ph. Social History Tobacco Smoking Status Heavy [...] Surgeries None recorded. Imaging None recorded. Vitals 06/30/2020 02:00PM TELEHEALTH 20 Height 61 in [...]
--- OUTSIDE RECORDS SUMMARY | 2020-08-06 18:56 | CCD ---
Author Organization Unknown Address [address] [place] [address] Phone [phone] Care Team Providers Care Gumming Machine Operator Name Role Phone Cristian Richardson Kishan Unavailable Unavailable Allergies Code Code System Name Reaction Severity Status Onset 058234 RxNorm Lacosamide Active 12/19/2019 Notes: SEASONAL - [...] Date Name Performed by 05/14/2020 , Liver [facility] [address] [place] [address] (Work Place) Notes: Breast Surgery: right lumpectomy, left elbow cyst removal 2008 , Left shoulder, relived pressure from brain, drained fluid from lungs, intubated Results Lab Results Date Name Specimen Result Interpretation Description Value Range Status Address 05/10/2020 Cbc Blood venous Normal White Blood Count 7.6 10 4.0-10.0 10 [facility]: [address] [place] [address] Blood venous Normal Red Blood Count 4.25 10 4.00- 5.40 10 [facility]: [address] [place] [address] Blood venous Normal Hemoglobin 12.3 g/dL 12.0-15. 5 g/dL [facility]: [address] [place] [address] Blood venous Normal Hematocrit 38.8 % 36.0-47.0 % [facility]: [address] [place] [address] Blood venous Normal Mean Corpuscular Volume 91.3 fL 80.0-96.0 fL [facility]: [address] [place] [address] Blood venous Normal Mean Corpuscular Hemoglob in 28.9 pg 27.0-33.0 pg [facility]: [address] [place] [address] Blood venous Low Mean Corpuscular HGB Conc 31.7 g/dL 32.0-36.5 g/dL [facility]: [address] [place] [address] Blood venous High Red Cell Distribution Width 1 5.0 % 11.5-14.5 % [facility]: [address] [place] [address] Blood venous Normal Platelet Count, Automated 266 10 150-450 10 [facility]: [address] [place] [address] Blood venous Normal Nucleated Red Blood Cell % 0. 0 % 0-0 % [facility]: [address] [place] [address] 05/10/2020 CMP, Serum or Plasma Blood venous High Glu cose, Fasting 276 mg/dL 70-100 mg/dL [facility] Ce nter: [address] [place] [address] Blood venous High Blood Urea Nitrogen 34 mg/dL 7-18 mg/dL [facility]: [address] [facility] Blood venous High Creatinine for GFR 1.50 mg/dL 0.55-1.30 mg/dL [facility]: [address] [facility] Blood venous Low Glomerular Filtration Rate 38 .7 >51 [facility]: [address] [facility] Blood venous Normal Sodium Level 139 mEq/L 136-14 5 mEq/L [facility]: [address] [facility] Blood venous Normal Potassium Serum 5.0 mEq/L 3.5 -5.1 mEq/L [facility]: [address] [facility] Blood venous Normal Chloride Level 106 mEq/L 98-1 07 mEq/L [facility]: [address] [facility] Blood venous Normal Carbon Dioxide Level 29 mEq/L 21-32 mEq/L [facility]: [address] [facility] Blood venous Low Anion Gap 4 mEq/L 8-16 mEq/L [facility]: [address] [facility] Blood venous Normal Calcium Level 8.9 mg/dL 8.5-1 0.1 mg/dL [facility]: [address] [facility] Blood venous Normal AST/SGOT 27 U/L 7-37 U/L [facility]: [address] [facility] Blood venous Normal ALT/SGPT 40 U/L 12-78 U/L [facility]: [address] [facility] Blood venous High Alkaline Phosphatase 147 U/L 45-117 U/L [facility]: [address] [facility] Blood venous Normal Bilirubin,total 0.3 mg/dL 0.2 -1.0 mg/dL [facility]: [address] [facility] Blood venous Normal Total Protein 6.4 gm/dL 6.4-8 .2 gm/dL [facility]: [address] [facility] Blood venous Normal Albumin 3.5 gm/dL 3.2-5.2 gm/ dL [facility]: [address] [facility] Blood venous Normal Albumin/globulin Ratio 1.2 1.2-2.2 [facility]: [address] [place] [address] 05/10/2020 Lipid Panel, Blood Blood venous High Trigl ycerides Level 241 mg/dL <150 mg/dL [facility] nter: [address] [facility] Blood venous Normal Cholesterol Level 174 mg/dL < 200 mg/dL [facility]: [address] [place] [address] Blood venous Normal HDL Cholesterol 46 mg/dL >40 mg/dL [facility]: [address] [place] [address] Blood venous Normal LDL Cholesterol 80 mg/dL <100 mg/dL [facility]: [address] [place] [address] Blood venous Normal Non-hdl-c 128 mg/dL Fi nal [facility]: [address] [place] [address] Blood venous Normal Cholesterol Risk Ratio 3.782 <5 [facility]: [address] [place] [address] 05/10/2020 TSH, Serum or Plasma Blood venous Normal Thyroid Stimulating Hormone 3.570 uIU/mL 0.358-3.740 uIU/mL [facility] ical Center: [address] [place] [address] 05/10/2020 HbA1C (Hemoglobin a1C), Blood Normal Hemogl obin a1C 9.1 % [facility]: [address] [place] [address] High Estimated Average Glucose 214 mg/dL 60-110 mg/dL [facility]: [address] [place] [address] 05/10/2020 Microalbumin, Urine Urine Normal Creatinine, Urin e 88.2 mg/dL [facility]: [address] [place] [address] Urine Normal Malb Urine Siemens 101.0 mg/L [facility]: [address] [place] [address] Urine High Durga/creat Ratio 114.5 mcg/mg 0.0-30. 0 mcg/mg [facility]: [address] [place] [address] 04/19/2020 COVID-19 RNA (SARS-CoV-2), QL, log roper-PCR, Respiratory Specimen Nasopharyngeal Normal Sars Cov 2 RNA not detected not detected nal Associated Clinical Labs ([facility]): [address] Past Encounters 06/07/2020 Administration of Influenza Vaccine Cristian Richardson RPA-C: [address] [facility] [address], [place] [address], Ph. 05/14/2020 Hypertensive Disorder; Elevated Liver Enzymes Level; Disorder of Nervous System Due to Type 2 Diabetes Mellitus Cristian Richardson RPA-C: [address] [facility], [facility] [address], [place] [address], Ph. 05/10/2020 Disorder of Nervous System Due to Type 2 Diabetes Mellitus; Hyperlipidemia; Hypothyroidism Cristian Richardson RPA-C: [address] [facility], [facility] [address], [place] [address], Ph. 04/19/2020 Cough; Acute Exacerbation of Chronic Obstructive Airways Disease; Allergic Rhinitis Cristian Richardson RPA-C: [address] [facility], [facility] [address], [place] [address], Ph. Social History Tobacco Smoking Status Heavy [...] Surgeries None recorded. Imaging None recorded. Vitals 06/07/2020 01:30PM NURSE Height 61 in 05/14/2020 [...]
--- OUTSIDE RECORDS SUMMARY | 2020-08-06 18:56 | CCD ---
Author Organization Unknown Address [address] [place] [address] Phone [phone] Care Team Providers Care Wildlife Biology Internship Name Role Phone Cristian Richardson Kishan Unavailable Unavailable Allergies Code Code System Name Reaction Severity Status Onset 035106 RxNorm Lacosamide Active 12/19/2019 Notes: SEASONAL - [...] tablet Completed 04/15/20 famotidine 40 mg tablet Take 1 tablet [...] History Procedures Date Name Performed by 05/14/2020 US, Liver [facility] [address] [place] [address] (Work Place) Notes: Breast Surgery: right lumpectomy, left elbow cyst removal 2008 , Left shoulder, relived pressure from brain, drained fluid from lungs, intubated Results Lab Results Date Name Specimen Result Interpretation Description Value Range Status Address 05/10/2020 Cbc Blood venous Normal White Blood Count 7.6 10 4.0-10.0 10 [facility]: [address] [place] [address] Blood venous Normal Red Blood Count 4.25 10 4.00- 5.40 10 [facility]: [address] [place] [address] Blood venous Normal Hemoglobin 12.3 g/dL 12.0-15. 5 g/dL [facility]: [address] [place] [address] Blood venous Normal Hematocrit 38.8 % 36.0-47.0 % [facility]: [address] [place] [address] Blood venous Normal Mean Corpuscular Volume 91.3 fL 80.0-96.0 fL [facility]: [address] [place] [address] Blood venous Normal Mean Corpuscular Hemoglob in 28.9 pg 27.0-33.0 pg [facility]: [address] [place] [address] Blood venous Low Mean Corpuscular HGB Conc 31.7 g/dL 32.0-36.5 g/dL [facility]: [address] [place] [address] Blood venous High Red Cell Distribution Width 1 5.0 % 11.5-14.5 % [facility]: [address] [place] [address] Blood venous Normal Platelet Count, Automated 266 10 150-450 10 [facility]: [address] [place] [address] Blood venous Normal Nucleated Red Blood Cell % 0. 0 % 0-0 % [facility]: [address] [place] [address] 05/10/2020 CMP, Serum or Plasma Blood venous High Glu cose, Fasting 276 mg/dL 70-100 mg/dL [facility] nter: [address] [place] [address] Blood venous High Blood Urea Nitrogen 34 mg/dL 7-18 mg/dL [facility]: [address] [place] [address] Blood venous High Creatinine for GFR 1.50 mg/dL 0.55-1.30 mg/dL [facility]: [address] [facility] Blood venous Low Glomerular Filtration Rate 38 .7 >51 [facility]: [address] [facility] Blood venous Normal Sodium Level 139 mEq/L 136-14 5 mEq/L [facility]: [address] [facility] Blood venous Normal Potassium Serum 5.0 mEq/L 3.5 -5.1 mEq/L [facility]: [address] [facility] Blood venous Normal Chloride Level 106 mEq/L 98-1 07 mEq/L [facility]: [address] [facility] Blood venous Normal Carbon Dioxide Level 29 mEq/L 21-32 mEq/L [facility]: [address] [facility] Blood venous Low Anion Gap 4 mEq/L 8-16 mEq/L [facility]: [address] [facility] Blood venous Normal Calcium Level 8.9 mg/dL 8.5-1 0.1 mg/dL [facility]: [address] [facility] Blood venous Normal AST/SGOT 27 U/L 7-37 U/L [facility]: [address] [facility] Blood venous Normal ALT/SGPT 40 U/L 12-78 U/L [facility]: [address] [facility] Blood venous High Alkaline Phosphatase 147 U/L 45-117 U/L [facility]: [address] [facility] Blood venous Normal Bilirubin,total 0.3 mg/dL 0.2 -1.0 mg/dL [facility]: [address] [facility] Blood venous Normal Total Protein 6.4 gm/dL 6.4-8 .2 gm/dL [facility]: 0 [facility] Blood venous Normal Albumin 3.5 gm/dL 3.2-5.2 gm/ dL [facility]: 0 [facility] Blood venous Normal Albumin/globulin Ratio 1.2 1.2-2.2 [facility]: [address] [place] [address] 05/10/2020 Lipid Panel, Blood Blood venous High Trigl ycerides Level 241 mg/dL <150 mg/dL [facility] nter: [address] [place] [address] Blood venous Normal Cholesterol Level 174 mg/dL < 200 mg/dL [facility]: [address] [place] [address] Blood venous Normal HDL Cholesterol 46 mg/dL >40 mg/dL [facility]: [address] [place] [address] Blood venous Normal LDL Cholesterol 80 mg/dL <100 mg/dL [facility]: [address] [place] [address] Blood venous Normal Non-hdl-c 128 mg/dL [facility]: [address] [place] [address] Blood venous Normal Cholesterol Risk Ratio 3.782 <5 [facility]: [address] [place] [address] 05/10/2020 TSH, Serum or Plasma Blood venous Normal Thyroid Stimulating Hormone 3.570 uIU/mL 0.358-3.740 uIU/mL [facility] ical Center: [address] [place] [address] 05/10/2020 HbA1C (Hemoglobin a1C), Blood Normal Hemogl obin a1C 9.1 % [facility]: [address] [place] [address] High Estimated Average Glucose 214 mg/dL 60-110 mg/dL [facility]: [address] [place] [address] 05/10/2020 Microalbumin, Urine Urine Normal Creatinine, Urin e 88.2 mg/dL [facility]: [address] [place] [address] Urine Normal Malb Urine Siemens 101.0 mg/L [facility]: [address] [place] [address] Urine High Durga/creat Ratio 114.5 mcg/mg 0.0-30. 0 mcg/mg [facility]: [address] [place] [address] 04/19/2020 COVID-19 RNA (SARS-CoV-2), QL, multimedia journalist-PCR, Respiratory Specimen Nasopharyngeal Normal Sars Cov 2 RNA not detected not detected [facility] Associated Clinical Labs ([facility]): [address], [place] Past Encounters 06/16/2020 Hypertensive Disorder; Elevated Liver Enzymes Level Lori Portillo, RPA-C: [address], [facility] [address], [place] [address], Ph. 06/07/2020 Administration of Influenza Vaccine Cristian RcihardsonGLADISC: [address] [facility], [facility] [address], [place] [address], Ph. 05/14/2020 Hypertensive Disorder; Elevated Liver Enzymes Level; Disorder of Nervous System Due to Type 2 Diabetes Mellitus Cristian Holley GLADIS RichardsonC: [address] [facility], [facility] [address], [place] [address], Ph. 05/10/2020 Disorder of Nervous System Due to Type 2 Diabetes Mellitus; Hyperlipidemia; Hypothyroidism Cristian Holley GLADIS RichardsonC: [address] [facility], [facility] [address], [place] [address], Ph. 04/19/2020 Cough; Acute Exacerbation of Chronic Obstructive Airways Disease; Allergic Rhinitis Cristian Holley GLADIS RichardsonC: [address] [facility], [facility] [address], [place] [address], Ph. Social History Tobacco Smoking Status Heavy [...]
--- OUTSIDE RECORDS SUMMARY | 2020-08-06 18:56 | CCD ---
Continuity of Care Document (CCD) Created on: 05/27/2020 Rama Moreira External Reference #: [id number] : 1965 Sex: Female Author Author Rama TRAN MD Organization Unknown Address [address] [place] [address] Phone [phone] Care Team Providers Care Box Printing Machine Operator Name Role Phone Gauri Mcdowelldevon Gastelum RESIDENTIAL FINISH CARPENTER AUTM [phone] Cristian Richardson RPA-C AUTM [phone] Problems Active Problems Provider Date Type [...] Available Procedures Date Code Description Status 05/27/2020 23431 FX CL Vertebral Body Wi Cast/Bra ce Completed 04/09/2020 87778 X-Ray Spine Lumbosacral Complete Inc Bending Views Min Of 6 Completed 04/09/2020 83648 X-Ray Spine Thoracic Ap & Latera l 2 Views Completed Medical Devices Description No Information Available Encounters Type Date Location Provider Dx Diagnosis Office Visit 05/27/2020 8:15a Dennis Tran MD M51.26 Other intervertebral disc displacement, lumbar region M48.061 Spinal stenosis, lumbar lilliam on without neurogenic susan S32.010A Wedge compression fracture o f first lumbar vertebra, init Office Visit 04/09/2020 9:30a Dennis Tran MD M54.5 Low back pain Assessments Date Code Description Provider 05/27/2020 M51.26 Other intervertebral disc displa cement, lumbar region Gage Tran MD 05/27/2020 M48.061 Spinal stenosis, lum bar region without neurogenic claudication Gage Tran MD 05/27/2020 S32.010A Wedge compression fr acture of first lumbar vertebra, initial encounter for closed fracture Gage Tran MD 04/09/2020 M54.5 Low back pain Gage Tran MD Plan of Treatment 05/27/2020 - Gage Tran MD* M51.26 Other intervertebral disc displacement, lumbar region* Follow up:* in 8-10 weeks with either MKM or IID for low back recheck per BLB please. * M48.061 Spinal stenosis, lumbar region without neurogenic claudication * S32.010A Wedge compression fracture of first lumbar vertebra, initial encounter for closed fracture Functional Status Description No Information Available Mental Status Description No Information Available Referrals Refer to Dr Reason for Referral Status Appt Date Gage Tran MD DME PER SHADE Hardy AT [facility] NO AUTH REQUIRED FOR VISTA [address] ([id number]) BASED ON MED. [facility] . AND COVERED AT 100% TO GRECIA STANLEY CALL REF #[id number] Created [facility], [address] [place] [id number] [phone]
--- OUTSIDE RECORDS SUMMARY | 2020-08-06 18:56 | CCD | Continuity of Care Document ---
Author Author Rama TRAN MD Organization Unknown Address [address] [place] [address] Phone [phone] Care Team Providers Care Acquisition Associate Name Role Phone Salma Mcdowell Nirav SOLE LEVELER MACHINE AUTM [phone] Cristian Richardson RPA-C AUTM Problems Active Problems Provider Date Type 2 [...] Available Procedures Date Code Description Status 05/27/2020 87686 FX CL Vertebral Body Wi Cast/Bra ce Completed 04/09/2020 89160 X-Ray Spine Lumbosacral Complete Inc Bending Views Min Of 6 Completed 04/09/2020 57055 X-Ray Spine Thoracic Ap & Latera l 2 Views Completed Medical Devices Description No Information Available Encounters Type Date Location Provider Dx Diagnosis Office Visit 05/27/2020 8:15a [place] Gage Tran MD S32.010A Wedge compression fracture of first lumbar vertebra, init M51.26 Other intervertebral disc di splacement, lumbar region M48.061 Spinal stenosis, lumbar lilliam on without neurogenic susan F17.210 Nicotine dependence, cigaret axel, uncomplicated Office Visit 04/09/2020 9:30a [place] Gage Tran MD M54.5 Low back pain [...] Tran MD Plan of Treatment Future Appointment(s):* 06/21/2020 1:30 pm - PAYAL SheetsT at Physical Therapy [...] Description No Information Available Referrals Refer to Reason for Referral Status Appt Date Gage Tran MD AUTH FOR PT EVAL FOR L-SPINE [id number]. PAT GOING TO [facility]. PASSED TO PT DEPT. Created [address] [facility], [place] [address] [phone] Gage Tran MD ADDITIONAL VISITS FOR L-SPINE. Created [address] [facility], [place] [address] [phone] Gage Tran MD DME PER SHADE Hardy AT [facility] AUTH REQUIRED FOR VISTA [address] ([id number]) BASED ON MED. [facility] . AND COVERED AT 100% TO GRECIA NT CALL REF #[id number] Created [address] [facility], [place] [address] [phone]
--- OUTSIDE RECORDS SUMMARY | 2020-08-06 18:56 | CCD ---
Author Organization Unknown Address [address] [place] [address] Phone [phone] Care Team Providers Care Software Tools Build Engineer Name Role Phone Cristian Richardson Kishan Unavailable Unavailable Allergies Code Code System Name Reaction Severity Status Onset 595098 RxNorm Lacosamide Active 12/19/2019 Notes: SEASONAL - [...] Active Not available armodafinil 150 mg tablet Active Not av ailable atorvastatin 10 mg tablet TAKE ONE TABLET [...] tablet Completed 2019 furosemide 20 mg tablet Active Not avai lable levocetirizine 5 mg tablet TAKE ONE TABLET BY MOUTH ONCE DAILY Active Not available loratadine 10 mg tablet Completed 04/19/20 metoprolol tartrate 25 mg tablet Take 0.5 [...] Active 06/21/2012 History Finding of Body Region Active 10/25/2012 History Allergic Rhinitis Active 01/31/2013 History Menopause Present Active 01/31/2013 History Disorder of Nervous System Due to Type 2 Diabetes Mellitus Activ e 08/28/2013 History Fitting Procedure Active 07/20/2015 History Abnormal Gait Active 2015 History Hyperlipidemia Active 09/15/2015 History Hypothyroidism Active 10/19/2016 History Clinical Finding Active 02/22/2017 History Influenza Vaccine Needed Active 04/05/2018 [...] History SNOMED CT Concept Active History Procedures Notes: Breast Surgery: right lumpectomy, left elbow cyst removal 2008 , Left shoulder, relived pressure from brain, drained fluid from lungs, intubated Results Lab Results Date Name Specimen Result Interpretation Description Value Range Status Address 04/19/2020 COVID-19 RNA (SARS-CoV-2), QL, currency counter-PCR, Respiratory Specimen Nasopharyngeal Normal Sars Cov 2 RNA not detected not detected Fi nal Associated Clinical [facility] ([facility]): [address] Past Encounters 05/10/2020 Disorder of Nervous System Due to Type 2 Diabetes Mellitus; Hyperlipidemia; Hypothyroidism Cristian Richardson, RPA-C: [address] [facility], [facility] [address], [place] [address], Ph. 04/19/2020 Cough; Acute Exacerbation of Chronic Obstructive Airways Disease; Allergic Rhinitis Cristian Richardson RPA-C: [address] , [facility] [address], [place] [address], Ph. Social History Tobacco Smoking Status Heavy [...] Surgeries None recorded. Imaging None recorded. Vitals 04/19/2020 02:30PM SAME DAY 20 Height Weight [...]
--- OUTSIDE RECORDS SUMMARY | 2020-08-06 18:56 | CCD ---
Author Organization Unknown Address [address] [place] [address] Phone [phone] Care Team Providers Care Director Of Teenage Activities Name Role Phone Cristian Richardson Unavailable Unavailable Allergies Code Code System Name Reaction Severity Status Onset 798123 RxNorm Lacosamide Active 0 Notes: SEASONAL - [...] ailable azithromycin 250 mg tablet Completed 04/27 Bactrim DS 800 mg-160 mg tablet Take 1 tablet every 12 hours by oral route for 10 days. Active Not available Basaglar KwikPen U-100 Insulin 100 unit/mL (3 [...] 125 mcg (5000 ut) caps Completed 04/19/2020 Diflucan 150 mg tablet 1 tablet on day 1 and repeat on day 3 if not improving Active Not available famotidine 20 mg tablet Completed 04/15/20 20 famotidine 40 mg tablet Active Not avai lable furosemide 20 mg tablet Take 0.5 tablets [...] Date Name Performed by 05/14/2020 , Liver [facility] [address] [place] [address] (Work Place) 07/29/2020 XR, Toe(s), 2 or More View Information n ot available Notes: Breast Surgery: right lumpectomy, left elbow cyst removal 2008 , Left shoulder, relived pressure from brain, drained fluid from lungs, intubated Results Lab Results Date Name Specimen Result Interpretation Description Value Range Status Address 06/16/2020 CMP, Serum or Plasma Blood venous High Glu cose, Fasting 287 mg/dL 70-100 mg/dL [facility] nter: [address] [place] [address] Blood venous High Blood Urea Nitrogen 23 mg/dL 7-18 mg/dL [facility]: [address] [place] [address] Blood venous High Creatinine for GFR 1.33 mg/dL 0.55-1.30 mg/dL [facility]: [address] [place] [address] Blood venous Low Glomerular Filtration Rate 44 .4 >51 [facility]: [address] [place] [address] Blood venous Low Sodium Level 133 mEq/L 136-14 5 mEq/L [facility]: [address] [place] [address] Blood venous High Potassium Serum 5.4 mEq/L 3.5 -5.1 mEq/L [facility]: 0 [facility] Blood venous Normal Chloride Level 102 mEq/L 98-1 07 mEq/L [facility]: [address] [place] [address] Blood venous Normal Carbon Dioxide Level 29 mEq/L 21-32 mEq/L [facility]: 0 [facility] Blood venous Low Anion Gap 2 mEq/L 8-16 mEq/L [facility]: [address] [place] [address] Blood venous Normal Calcium Level 8.7 mg/dL 8.5-1 0.1 mg/dL [facility]: [address] [facility] Blood venous Normal AST/SGOT 18 U/L 7-37 U/L [facility]: [address] [facility] Blood venous Normal ALT/SGPT 29 U/L 12-78 U/L [facility] al [facility]: [address] [facility] Blood venous High Alkaline Phosphatase 123 U/L 45-117 U/L [facility]: [address] [place] [address] Blood venous Normal Bilirubin,total 0.3 mg/dL 0.2 -1.0 mg/dL [facility]: [address] [place] [address] Blood venous Low Total Protein 6.0 gm/dL 6.4-8 .2 gm/dL [facility]: [address] [place] [address] Blood venous Normal Albumin 3.3 gm/dL 3.2-5.2 gm/ dL [facility]: [address] [place] [address] Blood venous Normal Albumin/globulin Ratio 1.2 1.2-2.2 [facility]: [address] [place] [address] 06/16/2020 Gamma Glutamyltranspeptidase High Gamma Glutamyltranspeptidase 78 U/L 5-55 U/L [facility] nter: [address] [place] [address] 05/10/2020 Cbc Blood venous Normal White Blood Count 7.6 10 4.0-10.0 10 [facility]: [address] [place] [address] Blood venous Normal Red Blood Count 4.25 10 4.00- 5.40 10 [facility]: [address] [place] [address] Blood venous Normal Hemoglobin 12.3 g/dL 12.0-15. 5 g/dL [facility]: [address] [place] [address] Blood venous Normal Hematocrit 38.8 % 36.0-47.0 % [facility]: [address] [place] [address] Blood venous Normal Mean Corpuscular Volume 91.3 fL 80.0-96.0 fL [facility]: [address] [place] [address] Blood venous Normal Mean Corpuscular Hemoglob in 28.9 pg 27.0-33.0 pg [facility]: [address] [place] [address] Blood venous Low Mean Corpuscular HGB Conc 31.7 g/dL 32.0-36.5 g/dL [facility]: [address] [place] [address] Blood venous High Red Cell Distribution Width 1 5.0 % 11.5-14.5 % [facility]: [address] [place] [address] Blood venous Normal Platelet Count, Automated 266 10 150-450 10 [facility]: [address] [place] [address] Blood venous Normal Nucleated Red Blood Cell % 0. 0 % 0-0 % [facility]: [address] [place] [address] 05/10/2020 CMP, Serum or Plasma Blood venous High Glu cose, Fasting 276 mg/dL 70-100 mg/dL [facility] nter: [address] [place] [address] Blood venous High Blood Urea Nitrogen 34 mg/dL 7-18 mg/dL [facility]: [address] [place] [address] Blood venous High Creatinine for GFR 1.50 mg/dL 0.55-1.30 mg/dL [facility]: [address] [place] [address] Blood venous Low Glomerular Filtration Rate 38 .7 >51 [facility]: [address] [place] [address] Blood venous Normal Sodium Level 139 mEq/L 136-14 5 mEq/L [facility]: [address] [place] [address] Blood venous Normal Potassium Serum 5.0 mEq/L 3.5 -5.1 mEq/L [facility]: [address] [place] [address] Blood venous Normal Chloride Level 106 mEq/L 98-1 07 mEq/L [facility]: [address] [place] [address] Blood venous Normal Carbon Dioxide Level 29 mEq/L 21-32 mEq/L [facility]: [address] [place] [address] Blood venous Low Anion Gap 4 mEq/L 8-16 mEq/L [facility]: [address] [place] [address] Blood venous Normal Calcium Level 8.9 mg/dL 8.5-1 0.1 mg/dL [facility]: [address] [facility] Blood venous Normal AST/SGOT 27 U/L 7-37 U/L [facility]: [address] [facility] Blood venous Normal ALT/SGPT 40 U/L 12-78 U/L [facility]: [address] [facility] Blood venous High Alkaline Phosphatase 147 U/L 45-117 U/L [facility]: [address] [facility] Blood venous Normal Bilirubin,total 0.3 mg/dL 0.2 -1.0 mg/dL [facility]: [address] [place] [address] Blood venous Normal Total Protein 6.4 gm/dL 6.4-8 .2 gm/dL [facility]: [address] [place] [address] Blood venous Normal Albumin 3.5 gm/dL 3.2-5.2 gm/ dL [facility]: [address] [place] [address] Blood venous Normal Albumin/globulin Ratio 1.2 1.2-2.2 [facility]: [address] [place] [address] 05/10/2020 Lipid Panel, Blood Blood venous High Trigl ycerides Level 241 mg/dL <150 mg/dL [facility] nter: [address] [place] [address] Blood venous Normal Cholesterol Level 174 mg/dL < 200 mg/dL [facility]: [address] [place] [address] Blood venous Normal HDL Cholesterol 46 mg/dL >40 mg/dL [facility]: [address] [place] [address] Blood venous Normal LDL Cholesterol 80 mg/dL <100 mg/dL [facility]: [address] [place] [address] Blood venous Normal Non-hdl-c 128 mg/dL [facility]: [address] [place] [address] Blood venous Normal Cholesterol Risk Ratio 3.782 <5 [facility]: [address] [place] [address] 05/10/2020 TSH, Serum or Plasma Blood venous Normal Thyroid Stimulating Hormone 3.570 uIU/mL 0.358-3.740 uIU/mL [facility] Center: [address] [place] [address] 05/10/2020 HbA1C (Hemoglobin a1C), Blood Normal Hemogl obin a1C 9.1 % [facility]: 0 [facility] High Estimated Average Glucose 214 mg/dL 60-110 mg/dL [facility]: 0 [facility] 05/10/2020 Microalbumin, Urine Urine Normal Creatinine, Urin e 88.2 mg/dL [facility]: 0 [facility] Urine Normal Malb Urine Siemens 101.0 mg/L [facility]: [address] [place] [address] Urine High Durga/creat Ratio 114.5 mcg/mg 0.0-30. 0 mcg/mg [facility]: 0 [facility] 04/19/2020 COVID-19 RNA (SARS-CoV-2), QL, technician assistant-PCR, Respiratory Specimen Nasopharyngeal Normal Sars Cov 2 RNA not detected not detected Fi nal Associated Clinical Labs ([facility]): [address] Past Encounters 07/29/2020 Cellulitis of Toe of Left Foot; Diabetes Mellitus; Vaginitis ADEOLA VillatoroC: [address] [facility] [address] [address], Ph. 06/30/2020 Chronic Renal Insufficiency; Liver Function Tests Abnormal; Disorder of Nervous System Due to Type 2 Diabetes Mellitus Jeremias Ryder MD: [address] [facility] [address] [place] [address], Ph. 06/16/2020 Hypertensive Disorder; Elevated Liver Enzymes Level GLADIS SantosC: [address] [facility] [address] [address], Ph. 06/07/2020 Administration of Influenza Vaccine Cristian Richardson RPA-C: [address] [facility] [address], [place] [address], Ph. 05/14/2020 Hypertensive Disorder; Elevated Liver Enzymes Level; Disorder of Nervous System Due to Type 2 Diabetes Mellitus Cristian Richardson RPA-C: [address] [facility], [facility] [address], [place] [address], Ph. 05/10/2020 Disorder of Nervous System Due to Type 2 Diabetes Mellitus; Hyperlipidemia; Hypothyroidism Cristian Richardson, RPA-C: [address] [facility], [facility] [address], [place] [address], Ph. 04/19/2020 Cough; Acute Exacerbation of Chronic Obstructive Airways Disease; Allergic Rhinitis Cristian Richardson, RPA-C: [address] [facility], [facility] [address], [place] [address], Ph. Social History Tobacco Smoking Status Heavy [...] Surgeries None recorded. Imaging None recorded. Vitals 07/29/2020 01:10PM SAME DAY 20 Height Weight [...]
--- OUTSIDE RECORDS SUMMARY | 2020-08-06 19:34 | CCD ---
Author Author [facility] Organization [facility] Address Unknown Phone Unavailable Care Team Providers Care Supervisor Communications And Signals Name Role Phone Viviana Rodas MD Unavailable Unavailabl e AdriannaViviana MD Unavailable Unavailabl e AdriannaViviana MD Unavailable Unavailabl e AdriannaViviana MD Unavailable Unavailabl e AdriannaViviana MD Unavailable Unavailabl e AdriannaViviana MD Unavailable Unavailabl e AdriannaViviana MD Unavailable Unavailabl e AdriannaViviana MD Unavailable Unavailabl e AdriannaViviana MD Unavailable Unavailabl e AdriannaViviana MD Unavailable Unavailabl e AdriannaViviana MD Unavailable Unavailabl e AdriannaViviana MD Unavailable Unavailabl e AdriannaViviana MD Unavailable Unavailabl e AdriannaViviana MD Unavailable Unavailabl e AdriannaViviana MD Unavailable Unavailabl e AdriannaViviana MD Unavailable Unavailabl e Adrianna, Viviana Michele Gene Unavailable Unavailabl e Adrianna, Viviana Mckennaius Gene Unavailable Unavailabl e Adrianna, Viviana Mckennaius Gene Unavailable Unavailabl e Adrianna, Viviana Mckennaius Gene Unavailable Unavailabl e Adrianna, Viviana Mckennaius Gene Unavailable Unavailabl e Adrianna, Viviana Mckennaius Gene Unavailable Unavailabl e Adrianna, Viviana Mckennaius Gene Unavailable Unavailabl e Adrianna, Viviana Mckennaius Gene Unavailable Unavailabl e Adrianna, Viviana Mckennaius Gene Unavailable Unavailabl e Adrianna, Viviana Mckennaius Gene Unavailable Unavailabl e Adrianna, Viviana Mckennaius Gene Unavailable Unavailabl e Adrianna, Viviana Mckennaius Gene Unavailable Unavailabl e Adrianna, Viviana Michele Gene Unavailable Unavailabl e Kishan Ryder MD Unavailable Unavailable Kishan Ryder MD Unavailable Unavailable Kishan Ryder MD Unavailable Unavailable Kishan Ryder MD Unavailable Unavailable Kishan Ryder MD Unavailable Unavailable Kishan Ryder MD Unavailable Unavailable Kishan Ryder MD Unavailable Unavailable Kishan Ryder MD Unavailable Unavailable Kishan Ryder MD Unavailable Unavailable Kishan Ryder MD Unavailable Unavailable Kishan Ryder MD Unavailable Unavailable Kishan Ryder MD Unavailable Unavailable Kishan Ryder MD Unavailable Unavailable Kishan Ryder MD Unavailable Unavailable Kishan Ryder MD Unavailable Unavailable Kishan Ryder MD Unavailable Unavailable Kishan Ryder MD Unavailable Unavailable Kishan Ryder MD Unavailable Unavailable Kishan Ryder MD Unavailable Unavailable Kishan Ryder MD Unavailable Unavailable Kishan Ryder MD Unavailable Unavailable Kishan Ryder MD Unavailable Unavailable Kishan Ryder MD Unavailable Unavailable Kishan Ryder MD Unavailable Unavailable Kishan Ryder MD Unavailable Unavailable Kishan Ryder MD Unavailable Unavailable Kishan Ryder MD Unavailable Unavailable Kishan Ryder MD Unavailable Unavailable Kishan Ryder MD Unavailable Unavailable Kishan Ryder MD Unavailable Unavailable Kishan Ryder MD Unavailable Unavailable Kishan Ryder MD Unavailable Unavailable Kishan Ryder MD Unavailable Unavailable Kishan Ryder MD Unavailable Unavailable Kishan Ryder MD Unavailable Unavailable Kishan Ryder MD Unavailable Unavailable Kishan Ryder MD Unavailable Unavailable Kishan Ryder MD Unavailable Unavailable Kishan Ryder MD Unavailable Unavailable Kishan Ryder MD Unavailable Unavailable Kishan Ryder MD Unavailable Unavailable Kishan Ryder MD Unavailable Unavailable Kishan Ryder MD Unavailable Unavailable Kishan Ryder MD Unavailable Unavailable Kishan Ryder MD Unavailable Unavailable Kishan Ryder MD Unavailable Unavailable Kishan Ryder MD Unavailable Unavailable Kishan Ryder MD Unavailable Unavailable Kishan Ryder MD Unavailable Unavailable Kishan Ryder MD Unavailable Unavailable Kishan Ryder MD Unavailable Unavailable Kishan Ryder MD Unavailable Unavailable Kishan Ryder MD Unavailable Unavailable Kishan Ryder MD Unavailable Unavailable Kishan Ryder MD Unavailable Unavailable Kishan Ryder MD Unavailable Unavailable Kishan Ryder MD Unavailable Unavailable Kishan Ryder MD Unavailable Unavailable Kishan Ryder MD Unavailable Unavailable Kishan Ryder MD Unavailable Unavailable Kishan Ryder MD Unavailable Unavailable Kishan Ryder MD Unavailable Unavailable Kishan Ryder MD Unavailable Unavailable Kishan Ryder MD Unavailable Unavailable Kishan Ryder MD Unavailable Unavailable Kishan Ryder MD Unavailable Unavailable Kishan Ryder MD Unavailable Unavailable Kishan Ryder MD Unavailable Unavailable Kishan Ryder MD Unavailable Unavailable Kishan Ryder MD Unavailable Unavailable Kishan Ryder MD Unavailable Unavailable Kishan Ryder MD Unavailable Unavailable Kishan Ryder MD Unavailable Unavailable Kishan Ryder MD Unavailable Unavailable Kishan Ryder MD Unavailable Unavailable Kishan Ryder MD Unavailable Unavailable Kishan Ryder MD Unavailable Unavailable Kishan Ryder MD Unavailable Unavailable Kishan Ryder MD Unavailable Unavailable Kishan Ryder MD Unavailable Unavailable Kishan Ryder MD Unavailable Unavailable Kishan Ryder MD Unavailable Unavailable Kishan Ryder MD Unavailable Unavailable Kishan Ryder MD Unavailable Unavailable Kishan Ryder MD Unavailable Unavailable Kishan Ryder MD Unavailable Unavailable Kishan Ryder MD Unavailable Unavailable Kishan Ryder MD Unavailable Unavailable Kishan Ryder MD Unavailable Unavailable Maya, Sherrie Unavailable Maya, Sherrie Unavailable Maya, Sherrie Unavailable Maya, Sherrie Unavailable Maya, Sherrie Unavailable Maya, Sherrie Unavailable Scordo, M Elda PA Unavailable Unavailable Scordo, M Elda PA Unavailable Unavailable Scordo, M Elda PA Unavailable Unavailable Scordo, M Elda PA Unavailable Unavailable Scordo, M Elda PA Unavailable Unavailable Scordo, M Elda PA Unavailable Unavailable Scordo, M Elda PA Unavailable Unavailable Scordo, M Elda PA Unavailable Unavailable Scordo, M Elda PA Unavailable Unavailable Scordo, M Elda PA Unavailable Unavailable Scordo, M Elda PA Unavailable Unavailable Scordo, M Elda PA Unavailable Unavailable Scordo, M Elda PA Unavailable Unavailable Scordo, M Elda PA Unavailable Unavailable Scordo, M Elda PA Unavailable Unavailable Scordo, M Elda PA Unavailable Unavailable Scordo, M Elda PA Unavailable Unavailable Scordo, M Elda PA Unavailable Unavailable Scordo, M Elda PA Unavailable Unavailable Scordo, M Elda PA Unavailable Unavailable Scordo, M Elda PA Unavailable Unavailable Scordo, M Elda PA Unavailable Unavailable Scordo, M Elda PA Unavailable Unavailable Scordo, M Elda PA Unavailable Unavailable Scordo, M Elda PA Unavailable Unavailable Scordo, M Elda PA Unavailable Unavailable Scordo, M Elda PA Unavailable Unavailable Scordo, M Elda PA Unavailable Unavailable Scordo, M Elda PA Unavailable Unavailable Scordo, M Elda PA Unavailable Unavailable Scordo, M Elda PA Unavailable Unavailable Scordo, M Elda PA Unavailable Unavailable Scordo, M Elda PA Unavailable Unavailable Scordo, M Elda PA Unavailable Unavailable Scordo, M Elda PA Unavailable Unavailable Scordo, M Elda PA Unavailable Unavailable Scordo, M Elda PA Unavailable Unavailable Scordo, M Elda PA Unavailable Unavailable Scordo, M Elda PA Unavailable Unavailable Scordo, M Elad PA Unavailable Unavailable Scordo, M Elda PA Unavailable Unavailable Scordo, M Elda PA Unavailable Unavailable Scordo, M Elda PA Unavailable Unavailable Unger, Elyssa DIRECTOR CORPORATE SECURITY DIRECTOR CORPORATE SECURITY Unavailable Unavailable Unger, F Elyssa DIRECTOR CORPORATE SECURITY-BC Unavailable Unavailable Unger, F Elyssa DIRECTOR CORPORATE SECURITY-BC Unavailable Unavailable Unger, F Elyssa DIRECTOR CORPORATE SECURITY-BC Unavailable Unavailable Unger, F Elyssa DIRECTOR CORPORATE SECURITY-BC Unavailable Unavailable Unger, F Elyssa DIRECTOR CORPORATE SECURITY-BC Unavailable Unavailable Unger, F Elyssa DIRECTOR CORPORATE SECURITY-BC Unavailable Unavailable Unger, F Elyssa DIRECTOR CORPORATE SECURITY-BC Unavailable Unavailable Unger, F Elyssa DIRECTOR CORPORATE SECURITY-BC Unavailable Unavailable Unger, F Elyssa DIRECTOR CORPORATE SECURITY-BC Unavailable Unavailable Unger, F Elyssa DIRECTOR CORPORATE SECURITY-BC Unavailable Unavailable Unger, F Elyssa DIRECTOR CORPORATE SECURITY-BC Unavailable Unavailable Unger, F Elyssa DIRECTOR CORPORATE SECURITY-BC Unavailable Unavailable Unger, F Elyssa DIRECTOR CORPORATE SECURITY-BC Unavailable Unavailable Unger, F Elyssa DIRECTOR CORPORATE SECURITY-BC Unavailable Unavailable Unger, F Elyssa DIRECTOR CORPORATE SECURITY-BC Unavailable Unavailable Unger, F Elyssa DIRECTOR CORPORATE SECURITY-BC Unavailable Unavailable Unger, F Elyssa DIRECTOR CORPORATE SECURITY-BC Unavailable Unavailable Unger, F Elyssa DIRECTOR CORPORATE SECURITY-BC Unavailable Unavailable Unger, F Elyssa DIRECTOR CORPORATE SECURITY-BC Unavailable Unavailable Unger, F Elyssa DIRECTOR CORPORATE SECURITY-BC Unavailable Unavailable Unger, F Elyssa DIRECTOR CORPORATE SECURITY-BC Unavailable Unavailable Unger, F Elyssa DIRECTOR CORPORATE SECURITY-BC Unavailable Unavailable KARRIE MCKEON MD Unavailable KARRIE MCKEON MD Unavailable KARRIE MCKEON MD Unavailable KARRIE MCKEON MD Unavailable KARRIE MCKEON MD Unavailable Luevano, I Lori Unavailable Luevano, I Lori Unavailable Luevano, I Lori Unavailable MILLS, LAURIE CRISTIAN RPA-C Unavailable Unavailable MILLS, LAURIE CRISTIAN RPA-C Unavailable Unavailable MILLS, LAURIE CRISTIAN RPA-C Unavailable Unavailable MILLS, LAURIE CRISTIAN RPA-C Unavailable Unavailable MILLS, LAURIE CRISTIAN RPA-C Unavailable Unavailable MILLS, LAURIE CRISTIAN RPA-C Unavailable Unavailable MILLS, LAURIE CRISTIAN RPA-C Unavailable Unavailable MILLS, LAURIE CRISTIAN RPA-C Unavailable Unavailable MILLS, LAURIE CRISTIAN RPA-C Unavailable Unavailable MILLS, LAURIE CRISTIAN RPA-C Unavailable Unavailable MILLS, LAURIE CRISTIAN RPA-C Unavailable Unavailable MILLS, LAURIE CRISTIAN RPA-C Unavailable Unavailable MILLS, LAURIE CRISTIAN RPA-C Unavailable Unavailable MILLS, LAURIE CRISTIAN RPA-C Unavailable Unavailable MILLS, LAURIE CRISTIAN RPA-C Unavailable Unavailable MILLS, LAURIE CRISTIAN RPA-C Unavailable Unavailable MILLS, LAURIE CRISTIAN RPA-C Unavailable Unavailable MILLS, LAURIE CRISTIAN RPA-C Unavailable Unavailable MILLS, LAURIE CRISTIAN RPA-C Unavailable Unavailable MILLS, LAURIE CRISTIAN RPA-C Unavailable Unavailable MILLS, LAURIE CRISTIAN RPA-C Unavailable Unavailable MILLS, LAURIE CRISTIAN RPA-C Unavailable Unavailable MILLS, LAURIE CRISTIAN RPA-C Unavailable Unavailable MILLS, LAURIE CRISTIAN RPA-C Unavailable Unavailable MILLS, LAURIE CRISTIAN RPA-C Unavailable Unavailable MILLS, LAURIE CRISTIAN RPA-C Unavailable Unavailable MILLS, LAURIE CRISTIAN RPA-C Unavailable Unavailable MILLS, LAURIE CRISTIAN RPA-C Unavailable Unavailable MILLS, LAURIE CRISTIAN RPA-C Unavailable Unavailable MILLS, LAURIE CRISTIAN RPA-C Unavailable Unavailable MILLS, LAURIE CRISTIAN RPA-C Unavailable Unavailable MILLS, LAURIE CRISTIAN RPA-C Unavailable Unavailable MILLS, LAURIE CRISTIAN RPA-C Unavailable Unavailable MILLS, LAURIE CRISTIAN RPA-C Unavailable Unavailable MILLS, LAURIE CRISTIAN RPA-C Unavailable Unavailable MILLS, LAURIE CRISTIAN RPA-C Unavailable Unavailable MILLS, LAURIE CRISTIAN RPA-C Unavailable Unavailable MILLS, LAURIE CRISTIAN RPA-C Unavailable Unavailable MILLS, LAURIE CRISTIAN RPA-C Unavailable Unavailable ANGELA [id number], E THERON [id number] Unavailable Unavailab le ANGELA [id number], E THERON [id number] Unavailable Unavailab le ANGELA [id number], E THERON [id number] Unavailable Unavailab Yessy Frye MD Unavailable Unavailable Yessy TUTTLE MD Unavailable Unavailable Yessy TUTTLE MD Unavailable Unavailable Yessy TUTTLE MD Unavailable Unavailable Yessy TUTTLE MD Unavailable Unavailable Yessy TUTTLE MD Unavailable Unavailable Yessy TUTTLE MD Unavailable Unavailable Yessy TUTTLE MD Unavailable Unavailable Yessy TUTTLE MD Unavailable Unavailable Yessy TUTTLE MD Unavailable Unavailable Yessy TUTTLE MD Unavailable Unavailable Yessy TUTTLE MD Unavailable Unavailable Yessy TUTTLE MD Unavailable Unavailable Yessy TUTTLE MD Unavailable Unavailable Otite, Michael Fadar Unavailable Unavailable Otite, Michael Fadar Unavailable Unavailable MILLS, LAURIE CRISTIAN RPA-C Unavailable Unavailable MILLS, LAURIE CRISTIAN RPA-C Unavailable Unavailable MILLS, LAURIE CRISTIAN RPA-C Unavailable Unavailable MILLS, LAURIE CRISTIAN RPA-C Unavailable Unavailable MILLS, LAURIE CRISTIAN RPA-C Unavailable Unavailable MILLS, LAURIE CRISTIAN RPA-C Unavailable Unavailable MILLS, LAURIE CRISTIAN RPA-C Unavailable Unavailable MILLS, LAURIE CRISTIAN RPA-C Unavailable Unavailable MILLS, LAURIE CRISTIAN RPA-C Unavailable Unavailable MILLS, LAURIE CRISTIAN RPA-C Unavailable Unavailable MILLS, LAURIE CRISTIAN RPA-C Unavailable Unavailable MILLS, LAURIE CRISTIAN RPA-C Unavailable Unavailable MILLS, LAURIE CRISTIAN RPA-C Unavailable Unavailable MILLS, LAURIE CRISTIAN RPA-C Unavailable Unavailable MILLS, LAURIE CRISTIAN RPA-C Unavailable Unavailable MILLS, LAURIE CRISTIAN RPA-C Unavailable Unavailable MILLS, LAURIE CRISTIAN RPA-C Unavailable Unavailable MILLS, LAURIE CRISTIAN RPA-C Unavailable Unavailable MILLS, LAURIE CRISTIAN RPA-C Unavailable Unavailable MILLS, LAURIE CRISTIAN RPA-C Unavailable Unavailable MILLS, LAURIE CRISTIAN RPA-C Unavailable Unavailable MILLS, LAURIE CRISTIAN RPA-C Unavailable Unavailable MILLS, LAURIE CRISTIAN RPA-C Unavailable Unavailable MILLS, LAURIE CRISTIAN RPA-C Unavailable Unavailable MILLS, LAURIE CRISTIAN RPA-C Unavailable Unavailable MILLS, LAURIE CRISTIAN RPA-C Unavailable Unavailable MILLS, LAURIE CRISTIAN RPA-C Unavailable Unavailable MILLS, LAURIE CRISTIAN RPA-C Unavailable Unavailable MILLS, LAURIE CRISTIAN RPA-C Unavailable Unavailable MILLS, LAURIE CRISTIAN RPA-C Unavailable Unavailable MILLS, LAURIE CRISTIAN RPA-C Unavailable Unavailable MILLS, LAURIE CRISTIAN RPA-C Unavailable Unavailable MILLS, LAURIE CRISTIAN RPA-C Unavailable Unavailable MILLS, LAURIE CRISTIAN RPA-C Unavailable Unavailable MILLS, LAURIE CRISTIAN RPA-C Unavailable Unavailable MILLS, LAURIE CRISTIAN RPA-C Unavailable Unavailable MILLS, LAURIE CRISTIAN RPA-C Unavailable Unavailable MILLS, LAURIE CRISTIAN RPA-C Unavailable Unavailable MILLS, LAURIE CRISTIAN RPA-C Unavailable Unavailable ALIASES , DEFAULT / GENERIC / UNKNOWN PROVIDER * Unavailable Unavailable ALIASES , DEFAULT / GENERIC / UNKNOWN PROVIDER * Unavailable Unavailable ALIASES , DEFAULT / GENERIC / UNKNOWN PROVIDER * Unavailable Unavailable ALIASES , DEFAULT / GENERIC / UNKNOWN PROVIDER * Unavailable Unavailable ALIASES , DEFAULT / GENERIC / UNKNOWN PROVIDER * Unavailable Unavailable ALIASES , DEFAULT / GENERIC / UNKNOWN PROVIDER * Unavailable Unavailable ALIASES , DEFAULT / GENERIC / UNKNOWN PROVIDER * Unavailable Unavailable ALIASES , DEFAULT / GENERIC / UNKNOWN PROVIDER * Unavailable Unavailable ALIASES , DEFAULT / GENERIC / UNKNOWN PROVIDER * Unavailable Unavailable ALIASES , DEFAULT / GENERIC / UNKNOWN PROVIDER * Unavailable Unavailable ALIASES , DEFAULT / GENERIC / UNKNOWN PROVIDER * Unavailable Unavailable ALIASES , DEFAULT / GENERIC / UNKNOWN PROVIDER * Unavailable Unavailable ALIASES , DEFAULT / GENERIC / UNKNOWN PROVIDER * Unavailable Unavailable ALIASES , DEFAULT / GENERIC / UNKNOWN PROVIDER * Unavailable Unavailable ALIASES , DEFAULT / GENERIC / UNKNOWN PROVIDER * Unavailable Unavailable ALIASES , DEFAULT / GENERIC / UNKNOWN PROVIDER * Unavailable Unavailable ALIASES , DEFAULT / GENERIC / UNKNOWN PROVIDER * Unavailable Unavailable ALIASES , DEFAULT / GENERIC / UNKNOWN PROVIDER * Unavailable Unavailable ALIASES , DEFAULT / GENERIC / UNKNOWN PROVIDER * Unavailable Unavailable ALIASES , DEFAULT / GENERIC / UNKNOWN PROVIDER * Unavailable Unavailable ALIASES , DEFAULT / GENERIC / UNKNOWN PROVIDER * Unavailable Unavailable ALIASES , DEFAULT / GENERIC / UNKNOWN PROVIDER * Unavailable Unavailable ALIASES , DEFAULT / GENERIC / UNKNOWN PROVIDER * Unavailable Unavailable ALIASES , DEFAULT / GENERIC / UNKNOWN PROVIDER * Unavailable Unavailable ALIASES , DEFAULT / GENERIC / UNKNOWN PROVIDER * Unavailable Unavailable ALIASES , DEFAULT / GENERIC / UNKNOWN PROVIDER * Unavailable Unavailable ALIASES , DEFAULT / GENERIC / UNKNOWN PROVIDER * Unavailable Unavailable ALIASES , DEFAULT / GENERIC / UNKNOWN PROVIDER * Unavailable Unavailable ALIASES , DEFAULT / GENERIC / UNKNOWN PROVIDER * Unavailable Unavailable ALIASES , DEFAULT / GENERIC / UNKNOWN PROVIDER * Unavailable Unavailable ALIASES , DEFAULT / GENERIC / UNKNOWN PROVIDER * Unavailable Unavailable ALIASES , DEFAULT / GENERIC / UNKNOWN PROVIDER * Unavailable Unavailable ALIASES , DEFAULT / GENERIC / UNKNOWN PROVIDER * Unavailable Unavailable ALIASES , DEFAULT / GENERIC / UNKNOWN PROVIDER * Unavailable Unavailable ALIASES , DEFAULT / GENERIC / UNKNOWN PROVIDER * Unavailable Unavailable ALIASES , DEFAULT / GENERIC / UNKNOWN PROVIDER * Unavailable Unavailable ALIASES , DEFAULT / GENERIC / UNKNOWN PROVIDER * Unavailable Unavailable ALIASES , DEFAULT / GENERIC / UNKNOWN PROVIDER * Unavailable Unavailable ALIASES , DEFAULT / GENERIC / UNKNOWN PROVIDER * Unavailable Unavailable ALIASES , DEFAULT / GENERIC / UNKNOWN PROVIDER * Unavailable Unavailable ALIASES , DEFAULT / GENERIC / UNKNOWN PROVIDER * Unavailable Unavailable ALIASES , DEFAULT / GENERIC / UNKNOWN PROVIDER * Unavailable Unavailable ALIASES , DEFAULT / GENERIC / UNKNOWN PROVIDER * Unavailable Unavailable ALIASES , DEFAULT / GENERIC / UNKNOWN PROVIDER * Unavailable Unavailable ALIASES , DEFAULT / GENERIC / UNKNOWN PROVIDER * Unavailable Unavailable ALIASES , DEFAULT / GENERIC / UNKNOWN PROVIDER * Unavailable Unavailable ALIASES , DEFAULT / GENERIC / UNKNOWN PROVIDER * Unavailable Unavailable ALIASES , DEFAULT / GENERIC / UNKNOWN PROVIDER * Unavailable Unavailable ALIASES , DEFAULT / GENERIC / UNKNOWN PROVIDER * Unavailable Unavailable ALIASES , DEFAULT / GENERIC / UNKNOWN PROVIDER * Unavailable Unavailable ALIASES , DEFAULT / GENERIC / UNKNOWN PROVIDER * Unavailable Unavailable ALIASES , DEFAULT / GENERIC / UNKNOWN PROVIDER * Unavailable Unavailable ALIASES , DEFAULT / GENERIC / UNKNOWN PROVIDER * Unavailable Unavailable HALL, LORI Unavailable Unavailable HALL, LORI Unavailable Unavailable HALL, LORI Unavailable Unavailable HALL, LORI Unavailable Unavailable HALL, LORI Unavailable Unavailable HALL, LORI Unavailable Unavailable HALL, LORI Unavailable Unavailable HALL, LORI Unavailable Unavailable HALL, LORI Unavailable Unavailable HALL, LORI Unavailable Unavailable HALL, LORI Unavailable Unavailable HALL, LORI Unavailable Unavailable HALL, LORI Unavailable Unavailable HALL, LORI Unavailable Unavailable HALL, LORI Unavailable Unavailable HALL, LORI Unavailable Unavailable HALL, LORI Unavailable Unavailable HALL, LORI Unavailable Unavailable HALL, LORI Unavailable Unavailable HALL, LOIR Unavailable Unavailable HALL, LORI Unavailable Unavailable HALL, LORI Unavailable Unavailable HALL, LORI Unavailable Unavailable HALL, LORI Unavailable Unavailable HALL, LORI Unavailable Unavailable KOUTSOURAS, W KAMI Unavailable Unavailable CHOWDHURY, C GRAHAME MD Unavailable Unavailable CHOWDHURY, C GRAHAME MD Unavailable Unavailable CHOWDHURY, C GRAHAME MD Unavailable Unavailable CHOWDHURY, C GRAHAME MD Unavailable Unavailable CHOWDHURY, C GRAHAME MD Unavailable Unavailable CHOWDHURY, C GRAHAME MD Unavailable Unavailable CHOWDHURY, C GRAHAME MD Unavailable Unavailable CHOWDHURY, C GRAHAME MD Unavailable Unavailable CHOWDHURY, C GRAHAME MD Unavailable Unavailable CHOWDHURY, C GRAHAME MD Unavailable Unavailable CHOWDHURY, C GRAHAME MD Unavailable Unavailable CHOWDHURY, C GRAHAME MD Unavailable Unavailable CHOWDHURY, C GRAHAME MD Unavailable Unavailable CHOWDHURY, C GRAHAME MD Unavailable Unavailable CHOWDHURY, C GRAHAME MD Unavailable Unavailable CHOWDHURY, C GRAHAME MD Unavailable Unavailable CHOWDHURY, C GRAHAME MD Unavailable Unavailable CHOWDHURY, C GRAHAME MD Unavailable Unavailable CHOWDHURY, C GRAHAME MD Unavailable Unavailable CHOWDHURY, C GRAHAME MD Unavailable Unavailable CHOWDHURY, C GRAHAME MD Unavailable Unavailable CHOWDHURY, C GRAHAME MD Unavailable Unavailable CHOWDHURY, C GRAHAME MD Unavailable Unavailable CHOWDHURY, C GRAHAME MD Unavailable Unavailable CHOWDHURY, C GRAHAME MD Unavailable Unavailable CHOWDHURY, C GRAHAME MD Unavailable Unavailable CHOWDHURY, C GRAHAME MD Unavailable Unavailable CHOWDHURY, C GRAHAME MD Unavailable Unavailable CHOWDHURY, C GRAHAME MD Unavailable Unavailable CHOWDHURY, C GRAHAME MD Unavailable Unavailable CHOWDHURY, C GRAHAME MD Unavailable Unavailable CHOWDHURY, C GRAHAME MD Unavailable Unavailable CHOWDHURY, C GRAHAME MD Unavailable Unavailable CHOWDHURY, C GRAHAME MD Unavailable Unavailable CHOWDHURY, C GRAHAME MD Unavailable Unavailable CHOWDHURY, C GRAHAME MD Unavailable Unavailable CHOWDHURY, C GRAHAME MD Unavailable Unavailable CHOWDHURY, C GRAHAME MD Unavailable Unavailable CHOWDHURY, C GRAHAME MD Unavailable Unavailable CHOWDHURY, C GRAHAME MD Unavailable Unavailable CHOWDHURY, C GRAHAME MD Unavailable Unavailable CHOWDHURY, C GRAHAME MD Unavailable Unavailable CHOWDHURY, C GRAHAME MD Unavailable Unavailable CHOWDHURY, C GRAHAME MD Unavailable Unavailable CHOWDHURY, C GRAHAME MD Unavailable Unavailable CHOWDHURY, C GRAHAME MD Unavailable Unavailable CHOWDHURY, C GRAHAME MD Unavailable Unavailable CHOWDHURY, C GRAHAME MD Unavailable Unavailable CHOWDHURY, C GRAHAME MD Unavailable Unavailable CHOWDHURY, C GRAHAME MD Unavailable Unavailable CHOWDHURY, C GRAHAME MD Unavailable Unavailable CHOWDHURY, C GRAHAME MD Unavailable Unavailable CHOWDHURY, C GRAHAME MD Unavailable Unavailable CHOWDHURY, C GRAHAME MD Unavailable Unavailable CHOWDHURY, C GRAHAME MD Unavailable Unavailable CHOWDHURY, C GRAHAME MD Unavailable Unavailable CHOWDHURY, C GRAHAME MD Unavailable Unavailable CHOWDHURY, C GRAHAME MD Unavailable Unavailable CHOWDHURY, C GRAHAME MD Unavailable Unavailable Hamm Spinoza, S Ellen Unavailable Unavailable Hamm Spinoza, S Ellen Unavailable Unavailable Hamm Spinoza, S Ellen Unavailable Unavailable Hamm Spinoza, S Ellen Unavailable Unavailable Hamm Spinoza, S Ellen Unavailable Unavailable Hamm Spinoza, S Ellen Unavailable Unavailable Hamm Spinoza, S Ellen Unavailable Unavailable Hamm Spinoza, S Ellen Unavailable Unavailable Hamm Spinoza, S Ellen Unavailable Unavailable Hamm Spinoza, S Ellen Unavailable Unavailable Hamm Spinoza, S Ellen Unavailable Unavailable Hamm Spinoza, S Ellen Unavailable Unavailable Hamm Spinoza, S Ellen Unavailable Unavailable Hamm Spinoza, S Ellen Unavailable Unavailable Hamm Spinoza, S Ellen Unavailable Unavailable Hamm Spinoza, S Ellen Unavailable Unavailable Hamm Spinoza, S Ellen Unavailable Unavailable Hamm Spinoza, S Ellen Unavailable Unavailable Hamm Spinoza, S Ellen Unavailable Unavailable Hamm Spinoza, S Ellen Unavailable Unavailable Hamm Spinoza, S Ellen Unavailable Unavailable Hamm Spinoza, S Ellen Unavailable Unavailable Hamm Spinoza, S Ellen Unavailable Unavailable Hamm Spinoza, S Ellen Unavailable Unavailable Hamm Spinoza, S Ellen Unavailable Unavailable Hamm Spinoza, S Ellen Unavailable Unavailable Hamm Spinoza, S Ellen Unavailable Unavailable Hamm Spinoza, S Ellen Unavailable Unavailable Hamm Spinoza, S Ellen Unavailable Unavailable Hamm Spinoza, S Ellen Unavailable Unavailable Hamm Spinoza, S Ellen Unavailable Unavailable Hamm Spinoza, S Ellen Unavailable Unavailable Hamm Spinoza, S Ellen Unavailable Unavailable Hamm Spinoza, S Ellen Unavailable Unavailable Hamm Spinoza, S Ellen Unavailable Unavailable Hamm Spinoza, S Ellen Unavailable Unavailable Hamm Spinoza, S Ellen Unavailable Unavailable Hamm Spinoza, S Ellen Unavailable Unavailable Hamm Spinoza, S Ellen Unavailable Unavailable Hamm Spinoza, S Ellen Unavailable Unavailable Hamm Spinoza, S Ellen Unavailable Unavailable Hamm Spinoza, S Ellen Unavailable Unavailable Hamm Spinoza, S Ellen Unavailable Unavailable Hamm Spinoza, S Ellen Unavailable Unavailable Hamm Spinoza, S Ellen Unavailable Unavailable Hamm Spinoza, S Ellen Unavailable Unavailable Hamm Spinoza, S Ellen Unavailable Unavailable Hamm Spinoza, S Ellen Unavailable Unavailable Hamm Spinoza, S Ellen Unavailable Unavailable Hamm Spinoza, S Ellen Unavailable Unavailable Hamm Spinoza, S Ellen Unavailable Unavailable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 01:00:00 AM EDT completed NETSMART ([facility]) Ipratropium-Albuterol 0.5-2.5 (3) MG/3ML Ipratropium-Albuter ol 12/22/2019 01:00:00 AM EDT completed NETSMART ([facility]) modafinil 100 MG Oral Tablet Modafinil 100 MG Oral Tab let (PROVIGIL) Modafinil 100 MG Oral Tablet (PROVIGIL) 12/01/2019 12:00:00 AM EDT 100 mg Ora l active Take 1 tablet by cristino th Two Times Daily for 2 days, Max Daily Dose: 200 mg [facility] Metoprolol Tartrate 25 MG Oral Tablet Me toprolol Tartrate 25 MG Oral Tablet (LOPRESSOR) Metoprolol Tartrate 25 MG Oral Tablet (LOPRESSOR) 11/10 12:00:00 AM EDT 12.5 mg Oral active Take 0.5 tablets by mouth Two Times Daily [facility] Lidocaine 5 % External Patch (LIDODERM) [id number] 12/01/19 12:00:00 AM EDT 2 {patch} Transdermal active Place 2 pa tches onto the skin every 24 (twenty-four) hours [facility] insulin lispro 100 units/mL SC injection LOW DOSE EATI NG INSULIN patients [id number] 12/01/2019 12:00:00 AM EDT Subcutaneous aborted Patient Instructions: Please refer to Insulin Sliding Scale Instructions in the Discharge Instructions. [facility] quetiapine 25 MG Oral Tablet QUEtiapine Fumarate 25 MG Oral Tablet (SEROquel) QUEtiapine Fumarate 25 MG Oral Tablet (SEROquel) 12/01/2019 12:00:00 AM EDT 25 mg Oral active Take 1 tab let by mouth Three times daily as needed (agitation) [facility] Oxycodone Hydrochloride 5 MG Oral Tablet oxyCODONE HCl 5 MG Oral Tablet (ROXICODONE) oxyCODONE HCl 5 MG Oral Tablet (ROXICODONE) 12/01/2019 12:00:00 AM EDT 5 mg Oral active Take 1 t ablet by mouth every 8 (eight) hours as needed for up to 3 days, Max Daily Dose: 15 mg [facility] Tetrahydrocannabinol 5 MG Oral Capsule Dronabinol 5 MG Oral Capsule (MARINOL) Dronabinol 5 MG Oral Capsule (MARINOL) 12/01/2019 12:00:00 AM EDT 5 m g Oral active Take 1 capsule by mouth Two Times Daily , Max Daily Dose: 10 mg [facility] Insulin Glargine 100 UNT/ML Injectable S olution Insulin Glargine 100 UNIT/ML Subcutaneous Solution (LANTUS) Insulin Glargine 100 UNIT/ML Subcutaneou s Solution (LANTUS) 12/01/2019 12:00:00 AM EDT 10 U Subcutaneous active Inject 10 Units into the skin every morning [facility] Carbamazepine 20 MG/ML Oral Suspension c arBAMazepine 100 MG/5ML Oral Suspension (TEGRETOL) carBAMazepine 100 MG/5ML Oral Suspension (TEGRETOL) 12:00:00 AM EDT 100 mg Oral active Take 5 mLs by mouth Two Times Daily [facility] COLLAGENASE 0.25 UNT/MG Topical Ointment Collagenase 250 UNIT/GM External Ointment (SANTYL) Collagenase 250 UNIT/GM External Ointment (SANTYL) 12:00:00 AM EDT active Apply to left lower leg and left lateral ankle per wound care [facility] sennosides, HALF-WAY 35.2 MG/ML Oral Solution Senna 176 MG/ 5ML Oral Syrup (SENOKOT) Senna 176 MG/5ML Oral Syrup (SENOKOT) 12/01/2019 12:00:00 AM EDT 10 m L Oral active Take 10 mLs by mouth nightly [facility] pantoprazole 2 mg/mL PO oral suspension 12/01/2019 12:00:0 0 AM EDT 40 mg Oral active Take 20 mLs by mouth daily [facility] Oxycodone Hydrochloride 5 MG Oral Tablet oxyCODONE (ROXICODONE) immediate release tablet 5 mg oxyCODONE (ROXICODONE) immediate release tablet 5 mg 11/29/2019 12:11:44 PM EDT 5 mg Oral active 5 mg, Oral, Every 8 hours PRN, Severe Pain (Pain Scale Score 7-10), Starting 11/29/19 at 1211, For 72 hours
Oxycodone immediate release is limited to 10 mg per dose. Higher doses ( only) require Pain Service consultation and approval.
[facility] Medication administered onsite ondansetron (ZOFRAN) injection 4 mg [id number] 11/28/2019 09:18:4 8 PM EDT 4 mg Intravenous active 4 mg, In travenous, Every 8 hours PRN, Nausea, Vomiting, Starting 6/19/20 at 2118, For 30 days [facility] Medication administered onsite Tetrahydrocannabinol 2.5 MG Oral Capsule dronabinol (M ARINOL) capsule 5 mg dronabinol (MARINOL) capsule 5 mg 11/28/2019 09:00:00 AM EDT 5 mg Oral active 5 mg, Oral, 2 Times Daily, First dose (after last modification) on Sun11/28/19 at 0900, For 10 doses [facility] Medication administered onsite Ceftriaxone 1000 MG Injection cefTRIAXone (ROCEPHIN) i nfusion 1 g (premix) cefTRIAXone (ROCEPHIN) infusion 1 g (premix) 11/28/2019 08:45:00 AM EDT 1 g Intravenous completed 1 g, Intraven ous, at 100 mL/hr, Every 24 hours, First dose on Sun11/28/19 at 0845, For 3 days
Discouraged Uses: Empiric treatment of post-surgical meningitis (ceftazidime preferred)
[facility] Medication administered onsite Carbamazepine 20 MG/ML Oral Suspension c arBAMazepine (TEGRETOL) 100 MG/5ML suspension 100 mg carBAMazepine (TEGRETOL) 100 MG/5ML suspension 100 mg 11/27/2019 09:00:00 PM EDT 100 mg Oral active 100 mg, Oral, 2 Times Daily, First dose on Lily 11/27/19 at 2100, For 30 days [facility] Medication administered onsite Furosemide 20 MG Oral Tablet furosemide (LASIX) tablet 20 mg furosemide (LASIX) tablet 20 mg 11/27/2019 09:00:00 AM EDT 20 mg Oral compl eted 20 mg, Oral, Daily Standard, First dose (after last modification) on Lily 11/27/19 at 0900, For 3 days [facility] Medication administered onsite Acetaminophen 32 MG/ML Oral Solution kandi taminophen (TYLENOL) 160 MG/5ML solution (ADULT) 1,000 mg acetaminophen (TYLENOL) 160 MG/5ML solution (ADULT) 1, 000 mg 11/27/2019 04:45:00 AM EDT 1000 mg Per NG tube completed 1,000 mg, Per NG tube, Every 8 hours, First dose (after last reorder) on Lily 11/27/19 at 0445, For 1 day
Maximum dose of acetaminophen is 3,000 mg from all sources in 24 hours.
[facility] Medication administered onsite Tetrahydrocannabinol 2.5 MG Oral Capsule dronabinol (M ARINOL) capsule 2.5 mg dronabinol (MARINOL) capsule 2.5 mg 11/26/2019 11:00:00 AM EDT 2.5 mg Oral aborted 2.5 mg, Oral, 2 Times Daily, First dose on Sun11/26/19 at 1100, For 7 days [facility] Medication administered onsite Oxycodone Hydrochloride 5 MG Oral Tablet oxyCODONE (ROXICODONE) immediate release tablet 5 mg oxyCODONE (ROXICODONE) immediate release tablet 5 mg 11/26/2019 11:00:00 AM EDT 5 mg Oral completed 5 mg, Oral, Every 8 hours PRN, Severe Pain (Pain Scale Score 7-10), Starting Sun11/26/19 at 1100, For 72 hours
Oxycodone immediate release is limited to 10 mg per dose. Higher doses ( only) require Pain Service consultation and approval.
[facility] Medication administered onsite Oxycodone Hydrochloride 5 MG Oral Tablet oxyCODONE (ROXICODONE) immediate release tablet 5 mg oxyCODONE (ROXICODONE) immediate release tablet 5 mg 11/25/2019 03:00:00 PM EDT 5 mg Oral aborted 5 mg, Oral, Every 6 hours PRN, Severe Pain (Pain Scale Score 7-10), Starting Sun11/25/19 at 1500, For 24 hours
Oxycodone immediate release is limited to 10 mg per dose. Higher doses ( only) require Pain Service consultation and approval.
[facility] Medication administered onsite modafinil 100 MG Oral Tablet modafinil (PROVIGIL) tabl et 100 mg modafinil (PROVIGIL) tablet 100 mg 11/25/2019 03:00:00 PM EDT 100 mg Oral active 100 mg, Oral, 2 Times Daily, First dose on Sun11/25/19 at 1500, For 7 days [facility] Medication administered onsite pantoprazole (PROTONIX) 2 mg/mL oral suspension 40 mg 11/25/2019 09:00:00 AM EDT 40 mg Oral active 40 mg, O ral, Daily Standard, First dose on Sun11/25/19 at 0900, For 30 days
IV to PO conversion per protocol. May restart IV if unable to take po.
[facility] Medication administered onsite insulin lispro (HUMALOG) injection HIGH DOSE TUBE CONT INSULIN patients 1-16 Units [id number] 11/24/2019 10:00:00 PM EDT Subcutaneous aborted 1-16 Units, Subcutaneous, Every 4 hours, First dose on Sun11/24/19 at 2200, For 30 days
Nursing MUST open the 'SQ Insulin Dosing Charts' Sidebar Report, or, the Patient Summary or Summary Report within the ED.From 22:00 to 6 AM only when on TFs.
[facility] Medication administered onsite Furosemide 20 MG Oral Tablet furosemide (LASIX) tablet 20 mg furosemide (LASIX) tablet 20 mg 11/24/2019 09:00:00 PM EDT 20 mg Oral abort ed 20 mg, Oral, 2 Times Daily, First dose (after last modification) on Sun11/24/19 at 2100, For 53 doses [facility] Medication administered onsite Oxycodone Hydrochloride 5 MG Oral Tablet oxyCODONE (ROXICODONE) immediate release tablet 5 mg oxyCODONE (ROXICODONE) immediate release tablet 5 mg 11/24/2019 03:05:01 PM EDT 5 mg Oral aborted 5 mg, Oral, Every 4 hours PRN, Severe Pain (Pain Scale Score 7-10), Starting Sun11/24/19 at 1505, For 3 days
Oxycodone immediate release is limited to 10 mg per dose. Higher doses ( only) require Pain Service consultation and approval.
[facility] Medication administered onsite insulin lispro (HumaLOG) injection LOW DOSE EATING INS ULIN patients 1-8 Units [id number] 11/24/2019 01:00:00 PM EDT Subcutaneous active 1-8 Units, Subcutaneous, Three Times Daily-With Meals, First dose on Sun11/24/19 at 1300, For 30 days
Nursing MUST open the 'SQ Insulin Dosing Charts' Sidebar Report, or, the Patient Summary or Summary Report within the ED.
[facility] Medication administered onsite Insulin Glargine 100 UNT/ML Injectable S olution insulin glargine (LANTUS) injection 10 Units insulin glargine (LANTUS) injection 10 Units 0 09:00:00 AM EDT 10 U Subcutaneous active 10 Units, Subcutaneous, Every morning, First dose (after last modification) on 11/24/19 at 0900, For 30 doses
For blood glucose less than 70 mg/dL: follow hypoglycemia protocol ( H) and notify provider.For blood glucose values between 70 mg/dL and 100 mg/dL at bedtime: provide snack (15 grams of carbohydrates) with some protein. Administer FULL DOSE of insulin glargine (LANTUS) after snack.Record snack in I&O's. For blood glucose more than 400 mg/dL: notify provider
[facility] Medication administered onsite Metoprolol Tartrate 25 MG Oral Tablet me toprolol tartrate (LOPRESSOR) tablet 12.5 mg metoprolol tartrate (LOPRESSOR) tablet 12.5 mg 10:45:00 AM EDT 12.5 mg Oral active 12.5 mg, Oral, 2 Times Daily, First dose on 11/23/19 at 1045, For 30 days [facility] Medication administered onsite Monobasic potassium phosphate 0.0408 MEQ /ML Oral Solution potassium phosphate (monobasic) (K-PHOS ORIGINAL) tablet 500 mg potassium phosphate (monobasic) (K- PHOS ORIGINAL) tablet 500 mg 11/23/2019 06:00:00 AM EDT 500 mg Pe r NG tube completed 500 mg, Per NG t ube, Once, 11/23/19 at 0600, For 1 dose
Dissolve tablets in 6-8 oz of water; for best results, soak tablets in water for 2-5 minutes, then stir and give to patient.
Each 500 mg tablet contains: elemental phosphorous 114 mg and potassium 144 mg (3.7 mEq)
[facility] Medication administered onsite potassium chloride (KLOR-CON) packet 40 mEq [id number] 11/23/2019 02:15:00 AM EDT 40 meq Oral completed 40 mEq , Oral, Once, 11/23/19 at 0215, For 1 dose
Mix in 4 ounces of water or juice
[facility] Medication administered onsite Insulin Glargine 100 UNT/ML Injectable S olution insulin glargine (LANTUS) injection 10 Units insulin glargine (LANTUS) injection 10 Units 0 09:00:00 PM EDT 10 U Subcutaneous aborted 10 Units, Subcutaneous, 2 Times Daily, First dose (after last modification) on Sun11/21/19 at 2100, For 18 doses
For blood glucose less than 70 mg/dL: follow hypoglycemia protocol ( ) and notify provider.For blood glucose values between 70 mg/dL and 100 mg/dL at bedtime: provide snack (15 grams of carbohydrates) with some protein. Administer FULL DOSE of insulin glargine (LANTUS) after snack.Record snack in I&O's. For blood glucose more than 400 mg/dL: notify provider
[facility] Medication administered onsite lidocaine (PF) (XYLOCAINE) 2 % injection [id number] 11/21/2019 03:54: 29 PM EDT completed Code/Trauma Medicati on, Starting Sun11/21/19 at 1554 [facility] Medication administered onsite Acetaminophen 32 MG/ML Oral Solution kandi taminophen (TYLENOL) 160 MG/5ML solution (ADULT) 1,000 mg acetaminophen (TYLENOL) 160 MG/5ML solution (ADULT) 1, 000 mg 11/21/2019 12:07:00 PM EDT 1000 mg Per NG tube completed 1,000 mg, Per NG tube, Every 8 hours, First dose (after last modification) on Sun11/21/19 at 1215, For 5 days
Maximum dose of acetaminophen is 3,000 mg from all sources in 24 hours.
[facility] Medication administered onsite gabapentin 50 MG/ML Oral Solution gabape ntin (NEURONTIN) 250 MG/5ML solution 100 mg gabapentin (NEURONTIN) 250 MG/5ML solution 100 mg 11/09 12:00:00 PM EDT 100 mg Oral aborted 100 mg, Oral, Every 8 hours Standard (3 times per day), First dose (after last modification) on Sun11/21/19 at 1200, For 30 days [facility] Medication administered onsite gabapentin 100 MG Oral Capsule gabapentin (NEURONTIN) capsule 100 mg gabapentin (NEURONTIN) capsule 100 mg 11/21/2019 11:30:00 AM EDT 100 mg Oral aborted 100 mg, Oral, Three Times D aily Standard, First dose (after last modification) on Sun11/21/19 at 1130, For 30 days [facility] Medication administered onsite Furosemide 40 MG Oral Tablet furosemide (LASIX) tablet 40 mg furosemide (LASIX) tablet 40 mg 11/21/2019 11:30:00 AM EDT 40 mg Oral abort ed 40 mg, Oral, 2 Times Daily, First dose on Sun11/21/19 at 1130, For 30 days [facility] Medication administered onsite tramadol hydrochloride 50 MG Oral Tablet tramadol (ULT CA) tablet 50 mg tramadol (ULTRAM) tablet 50 mg 11/21/2019 11:25:27 AM EDT 50 mg Oral aborted 50 mg, Oral, Every 6 hours PRN, Moderate Pain (Pain Scale Score 4-6), Starting Sun11/21/19 at 1125, For 4 days 8 hours [facility] Medication administered onsite 1 ML Ketorolac Tromethamine 15 MG/ML Car tridge ketorolac (TORADOL) 15 MG/ML injection 15 mg ketorolac (TORADOL) 15 MG/ML injection 15 mg 0 05:00:00 AM EDT 15 mg Intravenous completed 15 mg, Intravenous, Once, Sun11/21/19 at 0500, For 1 dose [facility] Medication administered onsite Insulin Glargine 100 UNT/ML Injectable S olution insulin glargine (LANTUS) injection 5 Units insulin glargine (LANTUS) injection 5 Units 11/20/2019 10:00:00 PM EDT 5 U Subcutaneous active 5 Units, Subcutaneous, Once, Lily 11/20/19 at 2200, For 1 dose
For blood glucose less than 70 mg/dL: follow hypoglycemia protocol ( ) and notify provider.For blood glucose values between 70 mg/dL and 100 mg/dL at bedtime: provide snack (15 grams of carbohydrates) with some protein. Administer FULL DOSE of insulin glargine (LANTUS) after snack.Record snack in I&O's. For blood glucose more than 400 mg/dL: notify provider
[facility] Medication administered onsite furosemide (LASIX) injection 40 mg [id number] 11/20/2019 07:15:00 PM EDT 40 mg Intravenous completed 40 mg, I ntravenous, Once, Lily 11/20/19 at 1915, For 1 dose [facility] Medication administered onsite fentaNYL (SUBLIMAZE) (PF) injection 25 mcg [id number] 11/20/2019 06:30:00 PM EDT 25 ug Intravenous completed 25 mcg, Intravenous, Once, Lily 11/20/19 at 1830, For 1 dose [facility] Medication administered onsite ondansetron (ZOFRAN) injection 4 mg [id number] 11/20/2019 05:00:0 0 PM EDT 4 mg Intravenous completed 4 mg, In travenous, Every 6 hours PRN, Nausea, Vomiting, Starting Lily 11/20/19 at 1700, For 5 days 16 hours [facility] Medication administered onsite Albuterol 0.833 MG/ML / Ipratropium Brom ramon 0.167 MG/ML Inhalant Solution ipratropium-albuterol (DUONEB) 0.5-2.5 (3) MG/3ML nebulizer solution 3 mL ipratropium-albuterol (DUONEB) 0.5-2.5 (3) MG/3ML nebulizer solution 3 mL 11/20/2019 04:00:00 PM EDT 3 mL Nebulization aborted 3 mL, Nebulization, Every 8 hours, First dose on Sun11/20/19 at 1600, For 21 doses
For Adults Q8 Hours is Hospital Standard, all orders will be changed to this unless MARIA DEL CARMEN is selected 'Yes' below.
[facility] Medication administered onsite 2 ML Metoclopramide 5 MG/ML Prefilled Sy ringe metoclopramide (REGLAN) injection 10 mg metoclopramide (REGLAN) injection 10 mg 11/20/2019 12:45:00 PM E DT 10 mg Intravenous completed 10 mg, I ntravenous, Once, Lily 11/20/19 at 1245, For 1 dose [facility] Medication administered onsite COLLAGENASE 0.25 UNT/MG Topical Ointment collagenase ( SANTYL) ointment collagenase (SANTYL) ointment 11/20/2019 12:00:00 PM EDT Topical active Topical, Daily Standard, Fi rst dose on Lily 11/20/19 at 1200, For 28 days
Per wound care nursing orders to left lower leg and left lateral ankle.
[facility] Medication administered onsite Acetaminophen 10 MG/ML Injectable Soluti on acetaminophen (OFIRMEV) infusion 1,000 mg acetaminophen (OFIRMEV) infusion 1,000 mg 11/20/2019 11:45:00 AM EDT 1000 mg Intravenous completed 1,000 mg , Intravenous, Administer over 15 Minutes, Once, Lily 11/20/19 at 1145, For 1 dose
Maximum dose 3 gm daily from all sources
[facility] Medication administered onsite Insulin Glargine 100 UNT/ML Injectable S olution insulin glargine (LANTUS) injection 20 Units insulin glargine (LANTUS) injection 20 Units 0 09:00:00 AM EDT 20 U Subcutaneous aborted 20 Units, Subcutaneous, 2 Times Daily, First dose (after last modification) on Lily 11/20/19 at 0900, For 21 doses
For blood glucose less than 70 mg/dL: follow hypoglycemia protocol (CM H-) and notify provider.For blood glucose values between 70 mg/dL and 100 mg/dL at bedtime: provide snack (15 grams of carbohydrates) with some protein. Administer FULL DOSE of insulin glargine (LANTUS) after snack.Record snack in I&O's. For blood glucose more than 400 mg/dL: notify provider
[facility] Medication administered onsite albumin human (ALBUMINAR) 25 % bottle 25 g [id number] 11/20/2019 09:00:00 AM EDT 25 g Intravenous completed 25 g, Intravenous, at 100 mL/hr, Every 8 hours Standard (3 times per day), First dose (after last reorder) on Lily 11/20/19 at 0900, For 3 doses [facility] Medication administered onsite Acetaminophen 10 MG/ML Injectable Soluti on acetaminophen (OFIRMEV) infusion 1,000 mg acetaminophen (OFIRMEV) infusion 1,000 mg 11/20/2019 04:00:00 AM EDT 1000 mg Intravenous completed 1,000 mg , Intravenous, Administer over 15 Minutes, Once, [facility] 11/20/19 at 0400, For 1 dose
Maximum dose 3 gm daily from all sources
[facility] Medication administered onsite 1 ML Ketorolac Tromethamine 15 MG/ML Car tridge ketorolac (TORADOL) 15 MG/ML injection 15 mg ketorolac (TORADOL) 15 MG/ML injection 15 mg 0 04:00:00 AM EDT 15 mg Intravenous completed 15 mg, Intravenous, Once, Lily 11/20/19 at 0400, For 1 dose [facility] Medication administered onsite ondansetron (ZOFRAN) injection 4 mg [id number] 11/19/2019 09:24:4 7 PM EDT 4 mg Intravenous aborted 4 mg, In travenous, Every 8 hours PRN, Nausea, Vomiting, Starting Sun11/19/19 at 2124, For 30 days [facility] Medication administered onsite furosemide (LASIX) injection 20 mg [id number] 11/19/2019 03:15:00 PM EDT 20 mg Intravenous completed 20 mg, I ntravenous, Every 8 hours Standard (3 times per day), First dose on Sun11/19/19 at 1515, For 5 doses
Please give Lasix immediately after Albumin infuses
[facility] Medication administered onsite albumin human (ALBUMINAR) 25 % bottle 25 g [id number] 11/19/2019 03:15:00 PM EDT 25 g Intravenous completed 25 g, Intravenous, at 100 mL/hr, Every 8 hours Standard (3 times per day), First dose on Sun11/19/19 at 1515, For 3 doses [facility] Medication administered onsite insulin lispro (HUMALOG) injection HIGH DOSE TUBE CONT INSULIN patients 1-16 Units [id number] 11/19/2019 01:15:00 PM EDT Subcutaneous aborted 1-16 Units, Subcutaneous, Every 4 hours, First dose on Sun11/19/19 at 1315, For 30 days
Nursing MUST open the 'SQ Insulin Dosing Charts' Sidebar Report, or, the Patient Summary or Summary Report within the ED.
[facility] Medication administered onsite Glucose 0.4 MG/MG Oral Gel glucose (GLUTOSE) 40 % oral gel 15 g glucose (GLUTOSE) 40 % oral gel 15 g 11/19/2019 01:00:53 PM EDT 15 g Oral active 15 g, Oral, PRN, Low blood s ugar, for gluose 55-69 mg/dl and able to take PO, Starting Sun11/19/19 at 1300, For 30 days [facility] Medication administered onsite lidocaine (LIDODERM) 5 % patch 2 patch [id number] 0 11:45:00 AM EDT 2 {patch} Transdermal active 2 patch, T ransdermal, Every 24 hours, First dose on Sun11/19/19 at 1145, For 30 days
Apply to left and right ribs for pain12 hours on - 12 hours off
[facility] Medication administered onsite Albuterol 0.83 MG/ML Inhalant Solution a lbuterol (PROVENTIL) (2.5 MG/3ML) 0.083% nebulizer solution albuterol (PROVENTIL) (2.5 MG/3ML) 0.083 % nebulizer solution 11/19/2019 11:34:00 AM EDT active Starting Sun11/19/19 at 1134, For 1 dose
Dustin Champion : cabinet override
[facility] Medication administered onsite Albuterol 0.83 MG/ML Inhalant Solution a lbuterol (PROVENTIL) nebulizer solution 2.5 mg albuterol (PROVENTIL) nebulizer solution 2.5 mg 2019 11:29:31 AM EDT 2.5 mg Nebulization active 2.5 mg, Nebulization, Every 6 hours PRN, Wheezing, Starting Sun11/19/19 at 1129, For 7 days 22 hours
For Adults Q8 Hours is Hospital Standard, all orders will be changed to this unless MARIA DEL CARMEN is selected 'Yes' below.
[facility] Medication administered onsite Insulin Glargine 100 UNT/ML Injectable S olution insulin glargine (LANTUS) injection 10 Units insulin glargine (LANTUS) injection 10 Units 0 09:45:00 AM EDT 10 U Subcutaneous active 10 Units, Subcutaneous, Once, Sun11/19/19 at 0945, For 1 dose
For blood glucose less than 70 mg/dL: follow hypoglycemia protocol ( ) and notify provider.For blood glucose values between 70 mg/dL and 100 mg/dL at bedtime: provide snack (15 grams of carbohydrates) with some protein. Administer FULL DOSE of insulin glargine (LANTUS) after snack.Record snack in I&O's. For blood glucose more than 400 mg/dL: notify provider
[facility] Medication administered onsite tramadol hydrochloride 50 MG Oral Tablet tramadol (ULT CA) tablet 50 mg tramadol (ULTRAM) tablet 50 mg 11/18/2019 06:15:00 PM EDT 50 mg Oral completed 50 mg, Oral, Once, Sun11/18/19 at 1815, For 1 dose [facility] Medication administered onsite alteplase (CATHFLO) injection 2 mg [id number] 11/18/2019 04:00:00 PM EDT 2 mg Intracatheter completed 2 mg, Intra catheter, Once, Sun11/18/19 at 1600, For 1 dose
To be instilled by PICC team or IR nurse only for at least 30 minutes
[facility] Medication administered onsite alteplase (CATHFLO) injection 2 mg [id number] 11/18/2019 04:00:00 PM EDT 2 mg Intracatheter completed 2 mg, Intra catheter, Once, Sun11/18/19 at 1600, For 1 dose
To be instilled by PICC team or IR nurse only for at least 30 minutes
[facility] Medication administered onsite Carbamazepine 20 MG/ML Oral Suspension c arBAMazepine (TEGRETOL) 100 MG/5ML suspension 50 mg carBAMazepine (TEGRETOL) 100 MG/5ML suspension 50 mg 0 11/18/2019 03:06:00 PM EDT 50 mg Oral active 50 mg, Oral, Every 6 hours, First dose (after last modification) on Sun11/18/19 at 1515, For 30 doses [facility] Medication administered onsite Diclofenac Sodium 0.01 MG/MG Topical Gel Diclofenac Sodium (VOLTAREN) 1 % gel 2 g Diclofenac Sodium (VOLTAREN) 1 % gel 2 g 11/18/2019 12:21:03 PM EDT 2 g Topical completed 2 g, Topical, Four Times Daily-PRN, Pain, Starting Sun11/18/19 at 1221, For 168 hours
Apply to ribs.
[facility] Medication administered onsite insulin lispro (HUMALOG) injection HIGH DOSE TUBE BOLUS INSULIN patients 1-22 Units [id number] 11/18/2019 11:30:00 AM EDT Subcutaneous aborted 1-22 Units, Subcutaneous, Before Meals - Three Times Daily, First dose on Sun11/18/19 at 1130, For 30 days
Nursing MUST open the 'SQ Insulin Dosing Charts' Sidebar Report, or, the Patient Summary or Summary Report within the ED.
[facility] Medication administered onsite 1 ML Ketorolac Tromethamine 15 MG/ML [place]idge ketorolac (TORADOL) 15 MG/ML injection 15 mg ketorolac (TORADOL) 15 MG/ML injection 15 mg 0 01:15:00 AM EDT 15 mg Intravenous completed 15 mg, Intravenous, Once, Sun11/18/19 at 0115, For 1 dose [facility] Medication administered onsite Hydralazine Hydrochloride 20 MG/ML Injec table Solution hydrALAZINE (APRESOLINE) injection 10 mg hydrALAZINE (APRESOLINE) injection 10 mg 11/18/2019 12 :43:43 AM EDT 10 mg Intravenous active 10 m g, Intravenous, Every 6 hours PRN, Other, Hypertension, SBP >160, Starting Sun11/18/19 at 0043, For 30 days
Dilute in 25-50 ml normal saline. Administer over 30 minutes.
[facility] Medication administered onsite Carbamazepine 20 MG/ML Oral Suspension c arBAMazepine (TEGRETOL) 100 MG/5ML suspension 100 mg carBAMazepine (TEGRETOL) 100 MG/5ML suspension 100 mg 11/17/2019 09:00:00 PM EDT 100 mg Oral aborted 100 mg, Oral, 2 Times Daily, First dose on Sun11/17/19 at 2100, For 30 days [facility] Medication administered onsite Insulin Glargine 100 UNT/ML Injectable S olution insulin glargine (LANTUS) injection 20 Units insulin glargine (LANTUS) injection 20 Units 0 09:00:00 PM EDT 20 U Subcutaneous aborted 20 Units, Subcutaneous, 2 Times Daily, First dose (after last modification) on Sun11/17/19 at 2100, For 25 doses
For blood glucose less than 70 mg/dL: follow hypoglycemia protocol ( ) and notify provider.For blood glucose values between 70 mg/dL and 100 mg/dL at bedtime: provide snack (15 grams of carbohydrates) with some protein. Administer FULL DOSE of insulin glargine (LANTUS) after snack.Record snack in I&O's. For blood glucose more than 400 mg/dL: notify provider
[facility] Medication administered onsite lidocaine (LIDODERM) 5 % patch 2 patch [id number] 0 05:00:00 PM EDT 2 {patch} Transdermal aborted 2 patch, T ransdermal, Every 24 hours, First dose (after last modification) on Sun11/17/19 at 1700, For 29 doses
Apply to ribs b/l12 hours on - 12 hours off
[facility] Medication administered onsite Oxycodone Hydrochloride 5 MG Oral Tablet oxyCODONE (ROXICODONE) immediate release tablet 5 mg oxyCODONE (ROXICODONE) immediate release tablet 5 mg 11/17/2019 09:38:50 AM EDT 5 mg Oral completed 5 mg, Oral, Every 4 hours PRN, Severe Pain (Pain Scale Score 7-10), Starting Sun11/17/19 at 0938, For 7 days 1 hour
Oxycodone immediate release is limited to 10 mg per dose. Higher doses ( only) require Pain Service consultation and approval.
[facility] Medication administered onsite potassium chloride 20 mEq in 100 mL IVPB (premix) [id number] 11/17/2019 02:45:00 AM EDT 20 meq Intravenous completed 20 mEq, Intravenous, Administer over 60 Minutes, Once, Sun11/17/19 at 0245, For 1 dose [facility] Medication administered onsite potassium chloride (KLOR-CON) packet 40 mEq [id number] 11/17/2019 02:45:00 AM EDT 40 meq Oral completed 40 mEq , Oral, Once, Sun11/17/19 at 0245, For 1 dose
Mix in 4 ounces of water or juice
[facility] Medication administered onsite 1 ML Ketorolac Tromethamine 15 MG/ML Car [place]idge ketorolac (TORADOL) 15 MG/ML injection 15 mg ketorolac (TORADOL) 15 MG/ML injection 15 mg 0 01:15:00 AM EDT 15 mg Intravenous completed 15 mg, Intravenous, Once, Sun11/17/19 at 0115, For 1 dose [facility] Medication administered onsite fentaNYL (SUBLIMAZE) (PF) injection 25 mcg [id number] 11/17/2019 12:00:00 AM EDT 25 ug Intravenous completed 25 mcg, Intravenous, Once, Sun11/17/19 at 0000, For 1 dose [facility] Medication administered onsite Piperacillin 3000 MG / tazobactam 375 MG Injection piperacillin-tazobactam (ZOSYN) IVPB 3.375 g (premix) piperacillin-tazobactam (ZOSYN) IVPB 3.3 75 g (premix) 11/16/2019 10:00:00 PM EDT 3.375 g Intravenous com pleted 3.375 g, Intravenous, Administer over 4 Hours, Every 8 hours, First dose (after last modification) on 11/16/19 at 2200, For 1 dose [facility] Medication administered onsite Metoprolol Tartrate 1 MG/ML Injectable S olution metoprolol (LOPRESSOR) injection 5 mg metoprolol (LOPRESSOR) injection 5 mg 11/16/2019 09:30:00 PM EDT 5 mg Intravenous active 5 mg, Intrave nous, Once, [place] 11/16/19 at 2130, For 1 dose
Dilute in 25 or 50 mL NS and administer over 30 minutes. If giving IVP, must be administered under the direct supervision of a medical provider and patient on a school bus monitor.
[facility] Medication administered onsite Potassium Chloride 0.1 MEQ/ML Injectable Solution potassium chloride 10 mEq in 100 mL IVPB (premix) potassium chloride 10 mEq in 100 mL IVPB (premix) 11/16/2019 09:30:00 PM EDT 10 meq Intravenous completed 10 mEq, Intravenous, Administer over 60 Minutes, Once, [place] 11/16/19 at 2130, For 1 dose [facility] Medication administered onsite magnesium sulfate in dextrose 5 % infusion (premix) 8 mEq [id number] 11/16/2019 09:00:00 PM EDT 8 meq Intravenous completed 8 mEq, Intravenous, Administer over 60 Minutes, Every 1 hour, First dose on 11/16/19 at 2100, For 2 doses
8 mEq = 1 g magnesium sulfate
[facility] Medication administered onsite fentaNYL (SUBLIMAZE) (PF) injection 25 mcg [id number] 11/16/2019 06:15:00 PM EDT 25 ug Intravenous completed 25 mcg, Intravenous, Once, 11/16/19 at 1815, For 1 dose [facility] Medication administered onsite lidocaine (LIDODERM) 5 % patch 1 patch [id number] 0 06:00:00 PM EDT 1 {patch} Transdermal aborted 1 patch, T ransdermal, Every 24 hours, First dose on 11/16/19 at 1800, For 30 days
Apply to ribs12 hours on - 12 hours off
[facility] Medication administered onsite bumetanide (BUMEX) injection 1 mg [id number] 11/15/2019 07:00:00 PM EDT 1 mg Intravenous completed 1 mg, In travenous, Once, 11/15/19 at 1900, For 1 dose [facility] Medication administered onsite insulin lispro (HUMALOG) injection CUSTO MIZABLE DOSE INSULIN patients 1-40 Units [id number] 11/15/2019 12:00:00 PM EDT Subcutaneous aborted 1-40 Units, Subcutaneous, Every 4 hours, First dose (after last modification) on 11/15/19 at 1200, For 176 doses
Nursing MUST open the 'SQ Insulin Dosing Charts' Sidebar Report, or, the Patient Summary or Summary Report within the ED.
Patient Type: Tube Continuous
<70 give (units or other): Hypoglycemia Protocol and then, once blood glucose level > 70 give insulin dose in 71-100 row regardless of new blood glucose level.
71-100 give (units): 0
101-140 give (units): 0
141-180 give (units): 8
181-220 give (units): 10
221-260 give (units): 12
261-300 give (units): 14
301-350 give (units): 16
351-400 give (units): 18
>401 give (units) AND NOTIFY: 20 [facility] Medication administered onsite bumetanide (BUMEX) injection 1 mg [id number] 11/15/2019 11:45:00 AM EDT 1 mg Intravenous completed 1 mg, In travenous, Once, 11/15/19 at 1145, For 1 dose [facility] Medication administered onsite quetiapine 25 MG Oral Tablet QUEtiapine (SEROquel) tab let 25 mg QUEtiapine (SEROquel) tablet 25 mg 11/15/2019 11:37:02 AM EDT 25 mg Oral active 25 mg, Oral, Three Times Daily-PRN, agitation, Starting 11/15/19 at 1137, For 30 days [facility] Medication administered onsite Insulin Glargine 100 UNT/ML Injectable S olution insulin glargine (LANTUS) injection 25 Units insulin glargine (LANTUS) injection 25 Units 0 09:00:00 AM EDT 25 U Subcutaneous aborted 25 Units, Subcutaneous, 2 Times Daily, First dose (after last modification) on 11/15/19 at 0900, For 30 doses
For blood glucose less than 70 mg/dL: follow hypoglycemia protocol ( ) and notify provider.For blood glucose values between 70 mg/dL and 100 mg/dL at bedtime: provide snack (15 grams of carbohydrates) with some protein. Administer FULL DOSE of insulin glargine (LANTUS) after snack.Record snack in I&O's. For blood glucose more than 400 mg/dL: notify provider
[facility] Medication administered onsite 0.4 ML Enoxaparin sodium 100 MG/ML Prefi lled Syringe enoxaparin sodium (LOVENOX) injection 40 mg enoxaparin sodium (LOVENOX) injection 40 mg 11/15/2019 09:00:00 AM EDT 40 mg Subcutaneous active 40 mg, Subcutaneous, Daily Standard, First dose (after last modification) on 11/15/19 at 0900, For 30 doses
Non Patients: weight > 150 kg, CrCl > 30 mL/min.Guidelines for Lovenox:MUST wait 24 hours before starting Enoxaparin if patient has epidural catheter.D/C Enoxaparin 10-12 hours prior to removing epidural catheter.
[facility] Medication administered onsite Insulin Lispro 100 UNT/ML Injectable Patricia ution insulin lispro (HumaLOG) injection 10 Units insulin lispro (HumaLOG) injection 10 Units 11/15/2019 08:45:00 AM EDT 10 U Subcutaneous completed 1 0 Units, Subcutaneous, Once, 11/15/19 at 0845, For 1 dose
If patient blood glucose is less than 70 mg/dL - follow the hypoglycemia procedure CM H-.If patient blood glucose is more than 400 mg/dL - notify the provider.
[facility] Medication administered onsite potassium chloride (KLOR-CON) packet 40 mEq [id number] 11/15/2019 08:45:00 AM EDT 40 meq Oral completed 40 mEq , Oral, Once, 11/15/19 at 0845, For 1 dose
Mix in 4 ounces of water or juice
[facility] Medication administered onsite furosemide (LASIX) injection 40 mg [id number] 11/15/2019 12:00:00 AM EDT 40 mg Intravenous completed 40 mg, I ntravenous, Once, 11/15/19 at 0000, For 1 dose [facility] Medication administered onsite Albuterol 0.833 MG/ML / Ipratropium Brom ramon 0.167 MG/ML Inhalant Solution ipratropium-albuterol (DUONEB) 0.5-2.5 (3) MG/3ML nebulizer solution 3 mL ipratropium-albuterol (DUONEB) 0.5-2.5 (3) MG/3ML nebulizer solution 3 mL 11/15/2019 12:00:00 AM EDT 3 mL Nebulization complete d 3 mL, Nebulization, Every 8 hours, First dose on 11/15/19 at 0000, For 4 days
For Adults Q8 Hours is Hospital Standard, all orders will be changed to this unless MARIA DEL CARMEN is selected 'Yes' below.
[facility] Medication administered onsite Insulin Glargine 100 UNT/ML Injectable S olution insulin glargine (LANTUS) injection 35 Units insulin glargine (LANTUS) injection 35 Units 0 10:00:00 PM EDT 35 U Subcutaneous aborted 35 Units, Subcutaneous, Nightly, First dose (after last modification) on Sun11/14/19 at 2200, For 22 doses
For blood glucose less than 70 mg/dL: follow hypoglycemia protocol ( ) and notify provider.For blood glucose values between 70 mg/dL and 100 mg/dL at bedtime: provide snack (15 grams of carbohydrates) with some protein. Administer FULL DOSE of insulin glargine (LANTUS) after snack.Record snack in I&O's. For blood glucose more than 400 mg/dL: notify provider
[facility] Medication administered onsite quetiapine 25 MG Oral Tablet QUEtiapine (SEROquel) tab let 25 mg QUEtiapine (SEROquel) tablet 25 mg 11/14/2019 09:30:00 PM EDT 25 mg Oral completed 25 mg, Oral, Once, Sun11/14/19 at 2130, For 1 dose [facility] Medication administered onsite insulin lispro (HUMALOG) injection CUSTO MIZABLE DOSE INSULIN patients 1-40 Units [id number] 11/14/2019 08:00:00 PM EDT Subcutaneous aborted 1-40 Units, Subcutaneous, Every 4 hours, First dose on Sun11/14/19 at 2000, For 30 days
Nursing MUST open the 'SQ Insulin Dosing Charts' Sidebar Report, or, the Patient Summary or Summary Report within the ED.
Patient Type: Tube Continuous
<70 give (units or other): Hypoglycemia Protocol and then, once blood glucose level > 70 give insulin dose in 71-100 row regardless of new blood glucose level.
71-100 give (units): 0
101-140 give (units): 0
141-180 give (units): 6
181-220 give (units): 8
221-260 give (units): 10
261- 300 give (units): 12
301-350 give (units): 14
351-400 give (units): 16
>401 give (units) AND NOTIFY: 18 [facility] Medication administered onsite Albuterol 0.83 MG/ML Inhalant Solution a lbuterol (PROVENTIL) nebulizer solution 2.5 mg albuterol (PROVENTIL) nebulizer solution 2.5 mg 2019 04:40:37 PM EDT 2.5 mg Nebulization active 2.5 mg, Nebulization, Every 2 hours PRN, Wheezing, Starting Sun11/14/19 at 1640, For 4 days [facility] Medication administered onsite furosemide (LASIX) injection 40 mg [id number] 11/14/2019 04:15:00 PM EDT 40 mg Intravenous completed 40 mg, I ntravenous, Once, Sun11/14/19 at 1615, For 1 dose [facility] Medication administered onsite Prednisone 20 MG Oral Tablet predniSONE (DELTASONE) ta blet 40 mg predniSONE (DELTASONE) tablet 40 mg 11/14/2019 04:15:00 PM EDT 40 mg Oral completed 40 mg, Oral, Daily Standard , First dose on Sun11/14/19 at 1615, For 5 days
Take with food.
[facility] Medication administered onsite Piperacillin 3000 MG / tazobactam 375 MG Injection piperacillin-tazobactam (ZOSYN) IVPB 3.375 g (premix) piperacillin-tazobactam (ZOSYN) IVPB 3.3 75 g (premix) 11/14/2019 02:00:00 PM EDT 3.375 g Intravenous abo rted 3.375 g, Intravenous, Administer over 4 Hours, Every 8 hours, First dose on Sun11/14/19 at 1400, For 7 days [facility] Medication administered onsite Insulin Glargine 100 UNT/ML Injectable S olution insulin glargine (LANTUS) injection 10 Units insulin glargine (LANTUS) injection 10 Units 0 01:45:00 PM EDT 10 U Subcutaneous active 10 Units, Subcutaneous, Once, Sun11/14/19 at 1345, For 1 dose
For blood glucose less than 70 mg/dL: follow hypoglycemia protocol ( H-) and notify provider.For blood glucose values between 70 mg/dL and 100 mg/dL at bedtime: provide snack (15 grams of carbohydrates) with some protein. Administer FULL DOSE of insulin glargine (LANTUS) after snack.Record snack in I&O's. For blood glucose more than 400 mg/dL: notify provider
[facility] Medication administered onsite furosemide (LASIX) injection 40 mg [id number] 11/14/2019 01:45:00 PM EDT 40 mg Intravenous completed 40 mg, I ntravenous, Once, Sun11/14/19 at 1345, For 1 dose [facility] Medication administered onsite vancomycin (VANCOCIN) 1250 mg in NaCl 0.9 % 250 mL (premix) [id number] 11/14/2019 09:00:00 AM EDT 1250 mg Intravenous completed 1,250 mg, Intravenous, Administer over 90 Minutes, Every 12 hours, First dose (after last reorder) on Sun11/14/19 at 0900, For 3 days [facility] Medication administered onsite quetiapine 25 MG Oral Tablet QUEtiapine (SEROquel) tab let 25 mg QUEtiapine (SEROquel) tablet 25 mg 11/14/2019 12:00:00 AM EDT 25 mg Oral completed 25 mg, Oral, Once, Sun11/14/19 at 0000, For 1 dose [facility] Medication administered onsite magnesium sulfate in dextrose 5 % infusion (premix) 8 mEq 672711/13/2019 05:00:00 PM EDT 8 meq Intravenous completed 8 mEq, Intravenous, Administer over 60 Minutes, Once, [place] 11/13/19 at 1700, For 1 dose
8 mEq = 1 g magnesium sulfate
[facility] Medication administered onsite methylPREDNISolone sodium succinate (SOLU-MEDROL) injection 125 mg [id number] 11/13/2019 08:45:00 AM EDT 125 mg Intravenous completed 125 mg, Intravenous, Once, [place] 11/13/19 at 0845, For 1 dose [facility] Medication administered onsite furosemide (LASIX) injection 40 mg [id number] 11/13/2019 08:15:00 AM EDT 40 mg Intravenous completed 40 mg, I ntravenous, Once, [place] 11/13/19 at 0815, For 1 dose [facility] Medication administered onsite Insulin Glargine 100 UNT/ML Injectable S olution insulin glargine (LANTUS) injection 25 Units insulin glargine (LANTUS) injection 25 Units 0 10:00:00 PM EDT 25 U Subcutaneous aborted 25 Units, Subcutaneous, Nightly, First dose (after last modification) on Sun11/12/19 at 2200, For 24 doses
For blood glucose less than 70 mg/dL: follow hypoglycemia protocol ( ) and notify provider.For blood glucose values between 70 mg/dL and 100 mg/dL at bedtime: provide snack (15 grams of carbohydrates) with some protein. Administer FULL DOSE of insulin glargine (LANTUS) after snack.Record snack in I&O's. For blood glucose more than 400 mg/dL: notify provider
[facility] Medication administered onsite furosemide (LASIX) injection 40 mg [id number] 11/12/2019 01:00:00 PM EDT 40 mg Intravenous completed 40 mg, I ntravenous, Once, Sun11/12/19 at 1300, For 1 dose [facility] Medication administered onsite Furosemide 40 MG Oral Tablet furosemide (LASIX) tablet 40 mg furosemide (LASIX) tablet 40 mg 11/12/2019 09:00:00 AM EDT 40 mg Oral abort ed 40 mg, Oral, Daily Standard, First dose (after last modification) on Sun11/12/19 at 0900, For 30 days [facility] Medication administered onsite furosemide (LASIX) injection 20 mg [id number] 11/11/2019 11:00:00 AM EDT 20 mg Intravenous completed 20 mg, I ntravenous, Once, Sun11/11/19 at 1100, For 1 dose [facility] Medication administered onsite fentaNYL (SUBLIMAZE) (PF) injection 50 mcg [id number] 11/11/2019 02:45:00 AM EDT 50 ug Intravenous completed 50 mcg, Intravenous, Once, Sun11/11/19 at 0245, For 1 dose [facility] Medication administered onsite Insulin Glargine 100 UNT/ML Injectable S olution insulin glargine (LANTUS) injection 20 Units insulin glargine (LANTUS) injection 20 Units 0 10:00:00 PM EDT 20 U Subcutaneous aborted 20 Units, Subcutaneous, Nightly, First dose (after last modification) on Sun11/10/19 at 2200, For 26 doses
For blood glucose less than 70 mg/dL: follow hypoglycemia protocol ( ) and notify provider.For blood glucose values between 70 mg/dL and 100 mg/dL at bedtime: provide snack (15 grams of carbohydrates) with some protein. Administer FULL DOSE of insulin glargine (LANTUS) after snack.Record snack in I&O's. For blood glucose more than 400 mg/dL: notify provider
[facility] Medication administered onsite furosemide (LASIX) injection 20 mg [id number] 11/10/2019 11:30:00 AM EDT 20 mg Intravenous completed 20 mg, I ntravenous, Once, Sun11/10/19 at 1130, For 1 dose [facility] Medication administered onsite Albuterol 0.833 MG/ML / Ipratropium Brom ramon 0.167 MG/ML Inhalant Solution ipratropium-albuterol (DUONEB) 0.5-2.5 (3) MG/3ML nebulizer solution 3 mL ipratropium-albuterol (DUONEB) 0.5-2.5 (3) MG/3ML nebulizer solution 3 mL 11/10/2019 08:03:18 AM EDT 3 mL Nebulization aborted 3 mL, Nebulization, Every 8 hours PRN, Wheezing, Starting Sun11/10/19 at 0803, For 4 days
For Adults Q8 Hours is Hospital Standard, all orders will be changed to this unless MARIA DEL CARMEN is selected 'Yes' below.
[facility] Medication administered onsite fentaNYL (SUBLIMAZE) (PF) injection 50 mcg [id number] 11/10/2019 07:55:48 AM EDT 50 ug Intravenous completed 50 mcg, Intravenous, Every 2 hours PRN, Moderate Pain (Pain Scale Score 4-6), Severe Pain (Pain Scale Score 7-10), Other, agitation, Starting Sun11/10/19 at 0755, For 12 hours [facility] Medication administered onsite Hydralazine Hydrochloride 20 MG/ML Injec table Solution hydrALAZINE (APRESOLINE) injection 10 mg hydrALAZINE (APRESOLINE) injection 10 mg 11/08/2019 10 :45:05 PM EDT 10 mg Intravenous aborted 10 m g, Intravenous, Every 6 hours PRN, Other, Hypertension, for SBP >140, Starting 11/08/19 at 2245, For 30 days
Dilute in 25-50 ml normal saline. Administer over 30 minutes.
[facility] Medication administered onsite sennosides, HALF-WAY 35.2 MG/ML Oral Solution senna (SENOKO T) syrup 10 mL senna (SENOKOT) syrup 10 mL 11/08/2019 10:00:00 PM EDT 10 mL Oral active 10 mL, Oral, Nightly, First dose on 11/08/19 at 2200, For 30 days [facility] Medication administered onsite levETIRAcetam (KEPPRA) 1,250 mg in sodiu m chloride 0.9 % 100 mL (12.5 mg/mL) IVPB 11/08/2019 09:00:00 PM EDT 1250 mg Intravenous com pleted 1,250 mg, Intravenous, at 400 mL/hr, 2 Times Daily, First dose (after last modification) on 11/08/19 at 2100, For 12 doses [facility] Medication administered onsite Oxycodone Hydrochloride 5 MG Oral Tablet oxyCODONE (ROXICODONE) immediate release tablet 10 mg oxyCODONE (ROXICODONE) immediate release tablet 10 mg 11/08/2019 02:45:00 PM EDT 10 mg Oral completed 10 mg, Oral, Every 4 hours, First dose (after last modification) on 11/08/19 at 1445, For 12 doses
Oxycodone immediate release is limited to 10 mg per dose. Higher doses ( only) require Pain Service consultation and approval.
[facility] Medication administered onsite fentaNYL (SUBLIMAZE) (PF) injection 50 mcg [id number] 11/08/2019 10:45:00 AM EDT 50 ug Intravenous completed 50 mcg, Intravenous, Once, 11/08/19 at 1045, For 1 dose [facility] Medication administered onsite sodium chloride (preservative free) 0.9 % flush 10 mL 11/08/2019 10:41:47 AM EDT 10 mL Intravenous active [Ord er 1 Start] Name: sodium chloride (preservative free) 0.9 % flush 10 mL Signed Summary: 10 mL, Intravenous, PRN, Line Care, Starting 11/08/19 at 1041, For 30 days
Verify blood return before use. Flush with 10 mL of Sodium Chloride 0.9 % before and after infusions or blood sampling followed-by 2 mL Heparin 10 units/mL to lock. Reference Policy [address] Central Line Policy.
[Order 1 End] [Order 2 Start] Name: heparin lock flush 10 UNIT/ML injection 20 Units Signed Summary: 20 Units, Intravenous, PRN, Line Care, Starting 11/08/19 at 1041, For 30 days
Verify blood return before use. Flush with 10 mL of Sodium Chloride 0.9 % before and after infusions or blood sampling followed-by 2 mL Heparin 10 units/mL to lock.Reference Policy [address] Central Line Policy.
[Order 2 End] [Order 3 Start] Name: sodium chloride (preservative free) 0.9 % flush 10 mL Signed Summary: 10 mL, Intravenous, Every 12 hours, First dose on 11/08/19 at 1045, For 30 days
WHEN NOT IN USE - Verify blood return before use. Flush with 10 mL of Sodium Chloride 0.9 % and 2 mL Heparin 10 units/mL.Reference Policy [address] Central Line Policy.
[Order 3 End] [Order 4 Start] Name: heparin lock flush 10 UNIT/ML injection 20 Units Signed Summary: 20 Units, Intravenous, Every 12 hours, First dose on 11/08/19 at 1045, For 30 days
WHEN NOT IN USE - Verify blood return before use. Flush with 10 mL of Sodium Chloride 0.9 % and 2 mL Heparin 10 units/mL.Reference Policy [address] Central Line Policy.
[Order 4 End] [facility] Medication administered onsite fentaNYL (SUBLIMAZE) (PF) injection 100 mcg [id number] 11/08/2019 10:41:38 AM EDT 100 ug Intravenous aborted 100 mcg, Intravenous, Every 2 hours PRN, Moderate Pain (Pain Scale Score 4-6), Severe Pain (Pain Scale Score 7-10), Other, agitation, Starting 11/08/19 at 1041, For 57 hours [facility] Medication administered onsite fentaNYL (SUBLIMAZE) 100 MCG/2ML (PF) injection [id number] 11/08/2019 10:32:46 AM EDT completed Starti ng Sat 11/08/19 at 1032, For 1 dose
Jonathon Reyes : cabinet override
[facility] Medication administered onsite fentaNYL (SUBLIMAZE) (PF) injection 50 mcg [id number] 11/08/2019 10:30:15 AM EDT 50 ug Intravenous aborted 50 m cg, Intravenous, Every 2 hours PRN, Moderate Pain (Pain Scale Score 4-6), Severe Pain (Pain Scale Score 7-10), Other, agitation, Starting 11/08/19 at 1030, For 58 hours [facility] Medication administered onsite Docusate Sodium 10 MG/ML Oral Suspension docusate (COLACE) 50 MG/5ML liquid 100 mg docusate (COLACE) 50 MG/5ML liquid 100 mg 11/08/2019 10:00:00 AM EDT 100 mg Oral active 100 mg, Or al, 2 Times Daily, First dose on 11/08/19 at 1000, For 30 days [facility] Medication administered onsite Bisacodyl 10 MG Rectal Suppository bisacodyl (DULCOLAX ) suppository 10 mg bisacodyl (DULCOLAX) suppository 10 mg 11/08/2019 09:52:45 AM EDT 10 mg Rectal active 10 mg, Rectal, Daily PRN, Constipation, Starting 11/08/19 at 0952, For 30 days [facility] Medication administered onsite vancomycin (VANCOCIN) 1250 mg in NaCl 0.9 % 250 mL (premix) [id number] 11/08/2019 07:00:00 AM EDT 1250 mg Intravenous aborted 1,250 mg, Intravenous, Administer over 90 Minutes, Every 12 hours, First dose (after last reorder) on 11/08/19 at 0700, For 6 doses [facility] Medication administered onsite fentaNYL (SUBLIMAZE) (PF) injection 25 mcg [id number] 11/07/2019 08:32:48 PM EDT 25 ug Intravenous aborted 25 m cg, Intravenous, Every 2 hours PRN, Moderate Pain (Pain Scale Score 4-6), Severe Pain (Pain Scale Score 7-10), Other, agitation, Starting Sun11/07/19 at 2032, For 3 days [facility] Medication administered onsite Oxycodone Hydrochloride 5 MG Oral Tablet oxyCODONE (ROXICODONE) immediate release tablet 5 mg oxyCODONE (ROXICODONE) immediate release tablet 5 mg 11/07/2019 02:45:00 PM EDT 5 mg Oral aborted 5 mg, Oral, Every 4 hours, First dose on Sun11/07/19 at 1445, For 3 days
Oxycodone immediate release is limited to 10 mg per dose. Higher doses ( only) require Pain Service consultation and approval.
[facility] Medication administered onsite vancomycin (VANCOCIN) infusion 1,500 mg/300 mL (premix) [id number] 11/07/2019 02:30:00 PM EDT 1500 mg Intravenous completed 1,500 mg, Intravenous, Administer over 90 Minutes, Once, Sun11/07/19 at 1430, For 1 dose [facility] Medication administered onsite Piperacillin 3000 MG / tazobactam 375 MG Injection piperacillin-tazobactam (ZOSYN) IVPB 3.375 g (premix) piperacillin-tazobactam (ZOSYN) IVPB 3.3 75 g (premix) 11/07/2019 02:00:00 PM EDT 3.375 g Intravenous com pleted 3.375 g, Intravenous, Administer over 4 Hours, Every 8 hours, First dose on Sun11/07/19 at 1400, For 7 days [facility] Medication administered onsite iohexol (OMNIPAQUE) 300 MG/ML contrast injection 100 mL [id number] 11/07/2019 11:15:00 AM EDT 100 mL Given by IV completed 100 mL, Given by IV, 1 TIME IMAGING, Sun11/07/19 at 1115, For 1 dose [facility] Medication administered onsite insulin lispro (HUMALOG) injection HIGH DOSE TUBE CONT INSULIN patients 1-16 Units [id number] 11/07/2019 08:45:00 AM EDT Subcutaneous aborted 1-16 Units, Subcutaneous, Every 4 hours, First dose on Sun11/07/19 at 0845, For 30 days
Nursing MUST open the 'SQ Insulin Dosing Charts' Sidebar Report, or, the Patient Summary or Summary Report within the ED.
[facility] Medication administered onsite Insulin Glargine 100 UNT/ML Injectable S olution insulin glargine (LANTUS) injection 10 Units insulin glargine (LANTUS) injection 10 Units 0 10:00:00 PM EDT 10 U Subcutaneous aborted 10 Units, Subcutaneous, Nightly, First dose on Lily 11/06/19 at 2200, For 30 days
For blood glucose less than 70 mg/dL: follow hypoglycemia protocol ( ) and notify provider.For blood glucose values between 70 mg/dL and 100 mg/dL at bedtime: provide snack (15 grams of carbohydrates) with some protein. Administer FULL DOSE of insulin glargine (LANTUS) after snack.Record snack in I&O's. For blood glucose more than 400 mg/dL: notify provider
[facility] Medication administered onsite dexmedetomidine (PRECEDEX) in NaCl 0.9 % infusion 4 mcg/mL 1 [id number] 11/06/2019 01:15:00 PM EDT Intravenous aborted 0.1-1.5 mcg/kg/hr 89 kg (2.225-33.375 mL/hr, rounded to 2.2-33.4 mL/hr), Intravenous, at 2.2-33.4 mL/hr, Continuous, Starting Lily 11/06/19 at 1315, For 30 days
Starting dose = 0.2 mcg/kg/hrTitrate to maintain RASS of 0 Titrate by 0.1-0.2 mcg/kg/hrMax Dose = 1.5 mcg/kg/hr Titrate down if RASS of -2
[facility] Medication administered onsite NaCl infusion 0.9 % [id number] 11/06/2019 01:15:00 PM EDT Intravenous aborted at 100 mL/hr, Intrav enous, Continuous, Starting Lily 11/06/19 at 1315, For 30 days [facility] Medication administered onsite Acetaminophen 32 MG/ML Oral Solution kandi taminophen (TYLENOL) 160 MG/5ML solution (ADULT) 1,000 mg acetaminophen (TYLENOL) 160 MG/5ML solution (ADULT) 1, 000 mg 11/06/2019 01:10:11 PM EDT 1000 mg Per NG tube aborted 1,000 mg, Per NG tube, Every 8 hours PRN, Mild Pain (Pain Scale Score 1-3), Fever, Starting Sun11/06/19 at 1310, For 30 days
Maximum dose of acetaminophen is 3,000 mg from all sources in 24 hours.
[facility] Medication administered onsite insulin lispro (HUMALOG) injection MEDIU M DOSE TUBE CONT INSULIN patients 1-14 Units [id number] 11/06/2019 09:45:00 AM EDT Subcutaneous aborted 1-14 Units, Subcutaneous, Every 4 hours, First dose on Sun11/06/19 at 0945, For 30 days
Nursing MUST open the 'SQ Insulin Dosing Charts' Sidebar Report, or, the Patient Summary or Summary Report within the ED.
[facility] Medication administered onsite Erythromycin 0.005 MG/MG Ophthalmic Oint ment erythromycin (ROMYCIN) ophthalmic ointment 1 cm erythromycin (ROMYCIN) ophthalmic ointment 1 cm 2019 10:00:00 PM EDT 1 cm Both Eyes completed 1 cm, Both Eyes, Nightly, First dose on Sun11/05/19 at 2200, For 14 days [facility] Medication administered onsite lidocaine (XYLOCAINE) 1 % injection 5 mL [id number] 11/05/2019 09:23:04 PM EDT 5 mL Subcutaneous aborted 5 m L, Subcutaneous, Once PRN, for PICC insertion, Starting Sun11/05/19 at 2123, For 30 days [facility] Medication administered onsite 0.3 ML Enoxaparin sodium 100 MG/ML Prefi lled Syringe enoxaparin sodium (LOVENOX) injection 30 mg enoxaparin sodium (LOVENOX) injection 30 mg 11/05/2019 09:00:00 PM EDT 30 mg Subcutaneous aborted 30 mg, Subcutaneous, Every 12 hours Standard (2 times per day), First dose on Sun11/05/19 at 2100, For 30 days
Non Patients: weight > 150 kg, CrCl > 30 mL/min.Guidelines for Lovenox:MUST wait 24 hours before starting Enoxaparin if patient has epidural catheter.D/C Enoxaparin 10-12 hours prior to removing epidural catheter.
[facility] Medication administered onsite Sodium Chloride 0.513 MEQ/ML Injectable Solution sodium chloride 3 % hypertonic solution sodium chloride 3 % hypertonic solution 11/05/2019 08:00:00 PM EDT 30 mL/h Intravenous aborted at 30 mL/hr, Intravenous, Continuous, Starting Sun11/05/19 at 2000, For 30 days [facility] Medication administered onsite Carboxymethylcellulose Sodium 5 MG/ML Op hthalmic Solution carboxymethylcellulose PF (REFRESH PLUS) 0.5 % ophthalmic solution 1 drop carboxymethylcellulose PF (REFRESH PLUS) 0.5 % ophthalmic solution 1 drop 11/05/2019 05:00:00 PM EDT 1 [drp] Both Eyes active 1 drop, Curly th Eyes, Four Times Daily Standard, First dose on Sun11/05/19 at 1700, For 30 days [facility] Medication administered onsite propofol (DIPRIVAN) infusion 1,000 mg/100 mL [id number] 11/05/2019 12:30:00 PM EDT Intravenous aborted 10-3 0 mcg/kg/min 83.1 kg (4.986-14.958 mL/hr, rounded to 5-15 mL/hr), Intravenous, at 5-15 mL/hr, Continuous, Starting Sun11/05/19 at 1230, For 30 days
Starting dose = 10 mcg/kg/minTitrate to maintain RASS of -2Increase by 5-10 mcg/kg/minMax Dose = 80 mcg/kg/min Titrate down if RASS of -3
[facility] Medication administered onsite insulin regular (HumuLIN R) 100 units in sodium chloride 0.9 % 100 mL (1 unit/mL) infusion (premix) [id number] 11/05/2019 12:30:00 PM EDT 0.5 U/h Intravenous aborted 0.5 Units/hr (0.5 mL/hr), Intravenous, at 0.5 mL/hr, Continuous, Starting Sun11/05/19 at 1230, For 30 days
Call for titration.
[facility] Medication administered onsite insulin lispro (HUMALOG) injection HIGH DOSE NPO INSUL IN patients 1-12 Units [id number] 11/05/2019 09:30:00 AM EDT Subcutaneous aborted 1-12 Units, Subcutaneous, Every 4 hours, First dose on Sun11/05/19 at 0930, For 30 days
Nursing MUST open the 'SQ Insulin Dosing Charts' Sidebar Report, or, the Patient Summary or Summary Report within the ED.
[facility] Medication administered onsite pantoprazole 4 MG/ML Injectable Solution pantoprazole (PROTONIX) injection 40 mg pantoprazole (PROTONIX) injection 40 mg 11/05/2019 09:00:00 AM EDT 40 mg Intravenous aborted 40 mg, Intrav enous, Daily Standard, First dose (after last reorder) on Sun11/05/19 at 0900, For 30 doses
Dilute with 10 mL of 0.9% NaCl.Give IVP over 2 minutes. Flush before and after.
[facility] Medication administered onsite Albuterol 0.833 MG/ML / Ipratropium Brom ramon 0.167 MG/ML Inhalant Solution ipratropium-albuterol (DUONEB) 0.5-2.5 (3) MG/3ML nebulizer solution 3 mL ipratropium-albuterol (DUONEB) 0.5-2.5 (3) MG/3ML nebulizer solution 3 mL 11/05/2019 08:38:38 AM EDT 3 mL Nebulization complete d 3 mL, Nebulization, Every 8 hours PRN, Wheezing, Shortness of Breath, Starting Sun11/05/19 at 0838, For 4 days
For Adults Q8 Hours is Hospital Standard, all orders will be changed to this unless MARIA DEL CARMEN is selected 'Yes' below.
[facility] Medication administered onsite dextrose 50 % IV solution 25 mL [id number] 11/05/2019 08:37:13 AM E DT 25 mL Intravenous active 25 mL, Intrav enous, PRN, Other, blood glucose <55, Starting Sun11/05/19 at 0837, For 30 days
Not for midline administration.
[facility] Medication administered onsite Glucagon 1 MG Injection glucagon (human recombinant) ( GLUCAGEN) injection 1 mg glucagon (human recombinant) (GLUCAGEN) injection 1 mg 11/05/2019 08:37:13 AM EDT 1 mg Intramuscular active 1 mg, Intramuscular, PRN, for glucose <55 without IV access, Starting Sun11/05/19 at 0837, For 30 days [facility] Medication administered onsite 2 ML Midazolam 1 MG/ML Injection midazolam (PF) (VERSE D) injection 2 mg midazolam (PF) (VERSED) injection 2 mg 11/05/2019 03:45:00 AM EDT 2 mg Intravenous completed 2 mg, Intrave nous, Once, Sun11/05/19 at 0345, For 1 dose [facility] Medication administered onsite pantoprazole 4 MG/ML Injectable Solution pantoprazole (PROTONIX) injection 40 mg pantoprazole (PROTONIX) injection 40 mg 11/05/2019 12:00:00 AM EDT 40 mg Intravenous completed 40 mg, Intrav enous, Once, Sun11/05/19 at 0000, For 1 dose
Dilute with 10 mL of 0.9% NaCl.Give IVP over 2 minutes. Flush before and after.
[facility] Medication administered onsite sodium chloride 0.9 % bolus 500 mL [id number] 11/04/2019 11:30:00 PM EDT 500 mL Intravenous completed 500 mL, Intravenous, Once, Sun11/04/19 at 2330, For 1 dose [facility] Medication administered onsite fentaNYL (SUBLIMAZE) (PF) injection 50 mcg [id number] 11/04/2019 11:15:00 PM EDT 50 ug Intravenous completed 50 mcg, Intravenous, Once, Sun11/04/19 at 2315, For 1 dose [facility] Medication administered onsite 50 ML Magnesium Sulfate 40 MG/ML Injecti on magnesium sulfate infusion 2 g/50 mL (premix) magnesium sulfate infusion 2 g/50 mL (premix) 11/04/19 11:01:18 PM EDT 16 meq Intravenous completed 16 mEq, Intravenous, Every 1 hour PRN, for serum magnesium < 2 mEq/L, Starting Sun11/04/19 at 2301, For 7 days
Serum Magnesium 1.6 - 1.9: give 16 mEq (2 g) q1h x 2 Serum Magnesium 1.5 and less: give 16 mEq (2 g) q1h x 3 *For ICU Stay only, discontinue on transfer*
[facility] Medication administered onsite Cefazolin 2000 MG Injection ceFAZolin (ANCEF) IVPB 2 g in dextrose (premix) ceFAZolin (ANCEF) IVPB 2 g in dextrose (premix) 11/04/2019 11:00:00 PM EDT 2 g Intravenous completed 2 g, Int ravenous, Administer over 30 Minutes, Once, Sun11/04/19 at 2300, For 1 dose [facility] Medication administered onsite Levetiracetam 10 MG/ML Injectable Soluti on levETIRAcetam (KEPPRA) 1,000 mg in sodium chloride 100 mL (10 mg/mL) infusion (premix) levETIRAcetam (KEPPRA) 1,000 mg in sodium chloride 100 mL (10 mg/mL) infusion (premix) 11/04/2019 10:45:00 PM EDT 1000 mg Intravenous aborted 1,00 0 mg, Intravenous, at 400 mL/hr, 2 Times Daily, First dose on Sun11/04/19 at 2245, For 7 days [facility] Medication administered onsite iohexol (OMNIPAQUE) 350 MG/ML contrast injection 75 mL [id number] 11/04/2019 08:30:00 PM EDT 75 mL Given by IV completed 75 mL, Given by IV, 1 TIME IMAGING, Sun11/04/19 at 2030, For 1 dose [facility] Medication administered onsite NaCl infusion 0.9 % [id number] 11/04/2019 08:00:00 PM EDT Intravenous aborted at 100 mL/hr, Intrav enous, Continuous, Starting Sun11/04/19 at 2000, For 30 days [facility] Medication administered onsite fentaNYL (SUBLIMAZE) 50 mcg/mL continuous infusion FENTANYLP CANCA 11/04/2019 07:45:00 PM EDT Intravenous aborted 10-200 mcg/hr (0.2-4 mL/hr), Intravenous, at 0.2-4 mL/hr, Continuous, Starting Sun11/04/19 at 1945, For 7 days
Starting dose = 25 mcg/hrTitrate to maintain BPS less than 6 or VPS less than 4Increase by 12.5 mcg/hrMax Dose = 300 mcg/hr
[facility] Medication administered onsite fentaNYL (SUBLIMAZE) bolus from bag 25 mcg FENTANYLPCANCA 11/04/2019 07:31:30 PM EDT 25 ug Intravenous aborted 25 m cg, Intravenous, Every 2 hours PRN, breakthrough pain, Starting Sun11/04/19 at 1931, For 3 days 2 hours [facility] Medication administered onsite fentaNYL (SUBLIMAZE) 50 mcg/mL NCA FENTANYLPCANCA 11/04/2019 07:30: 52 PM EDT completed Starting T u11/04/19 at 1930, For 1 dose
Wm Vogel : larsinet override
[facility] Medication administered onsite propofol (DIPRIVAN) infusion 1,000 mg/100 mL [id number] 11/04/2019 07:30:00 PM EDT Intravenous aborted 10-8 0 mcg/kg/min 59 kg (3.54-28.32 mL/hr, rounded to 3.5-28.3 mL/hr), Intravenous, at 3.5-28.3 mL/hr, Continuous, Starting Sun11/04/19 at 193, For 30 days
Starting dose = 10 mcg/kg/minTitrate to maintain RASS of -1Increase by 5-10 mcg/kg/minMax Dose = 80 mcg/kg/min Titrate down if RASS of -2
[facility] Medication administered onsite 2 ML Midazolam 1 MG/ML Injection midazolam (PF) (VERSE D) injection 2 mg midazolam (PF) (VERSED) injection 2 mg 11/04/2019 07:15:19 PM EDT 2 mg Intravenous aborted 2 mg, Intrave nous, Every 2 hours PRN, Sedation, Starting Sun11/04/19 at 1915, For 2 days [facility] Medication administered onsite iohexol (OMNIPAQUE) 300 MG/ML contrast injection 100 mL [id number] 1011/04/2019 07:00:00 PM EDT 100 mL Given by IV completed 100 mL, Given by IV, 1 TIME IMAGING, Sun11/04/19 at 1900, For 1 dose [facility] Medication administered onsite 3 ML Insulin Lispro 100 UNT/ML Pen Injec tor [Humalog] insulin lispro (ADMELOG SOLOSTAR) 100 UNIT/ML SOPN pen insulin lispro (ADMELOG SOLOSTAR) 100 UN IT/ML SOPN pen 10/30/2017 12:00:00 AM EDT abor tonya Type 2 diabetes mellitus with peripheral neuropathyType 2 diabetes mellitus with hyperglycemia, with long-term current use of insulin Inject as directed pe r algorithm. MDD 80 units with titration. REPLACES HUMALOG PEN SCRIPT, PRIOR AUTH FOR THIS SCRIPT IN [facility] Type 2 diabetes mellitus with peripheral neuropathy Type 2 diabetes mellitus with hyperglyce sandra, with long-term current use of insulin Blood Glucose Monitoring Suppl (Egenera) w/Device KIT [id number] 10/29/2017 12:00:00 AM EDT 1 {each} Does not apply abort ed 1 each by Does not apply route See Admin Instructions To test BG levels 4 times daily. e11.65 [facility] 3 ML Insulin Glargine 100 UNT/ML Pen Inj magdi insulin glargine (LANTUS SOLOSTAR) 100 UNIT/ML pen insulin glargine (LANTUS SOLOSTAR) 100 UNIT/ML pen 12:00:00 AM EDT aborted Inject 15 units once daily. Max Daily Dose 30 units with priming and titration. E11.65 [facility] Insulin Pen Needle (B-D ULTRAFINE III SHORT PEN) 31G X 8 [place] [facility] [place] [id number] 10/29/2017 12:00:00 AM EDT aborted Use as directed. Use with insulin pens 4 times daily. e11.65 [facility] d3 high potency 125 mcg (5000 ut) caps completed d3 high potency 125 mcg (5000 ut) caps [facility] er) Cefuroxime 500 MG Oral Tablet cefuroxime axetil 500 mg tablet cefuroxime axetil 500 mg tablet completed cefuroxi me 500 MG Oral Tablet [facility]) Fluconazole 150 MG Oral Tablet fluconazole 150 mg tabl et fluconazole 150 mg tablet completed fluconazole 150 MG Oral Tablet [facility]) Loratadine 10 MG Oral Tablet loratadine 10 mg tablet loratadine 10 mg tablet completed loratadine 10 MG Oral Tablet [place] ([facility]) Azithromycin 250 MG Oral Tablet azithromycin 250 mg ta blet azithromycin 250 mg tablet completed azithromycin 25 0 MG Oral Tablet [facility]) COLLAGENASE 0.25 UNT/MG Topical Ointment [Santyl] Santyl 250 unit/gram topical ointment Santyl 250 unit/gram topical ointment completed collagenase 0.25 UNT/MG Topical Ointment [Santyl] [place] ([facility]) cetirizine hydrochloride 10 MG Oral Tabl et cetirizine 10 mg tablet Take 1 tablet every day by oral route for 90 days. cetirizine 10 mg tablet Take 1 tablet every day by oral route for 90 days. 1 c ompleted cetirizine hydrochloride 10 MG Oral Tablet [facility]) COLLAGENASE 0.25 UNT/MG Topical Ointment [Santyl] Santyl 250 unit/gram topical ointment Santyl 250 unit/gram topical ointment completed collagenase 0.25 UNT/MG Topical Ointment [Santyl] [place] ([facility]) Azithromycin 250 MG Oral Tablet azithromycin 250 mg ta blet azithromycin 250 mg tablet completed azithromycin 25 0 MG Oral Tablet [facility]) Azithromycin 250 MG Oral Tablet azithromycin 250 mg ta blet azithromycin 250 mg tablet completed azithromycin 25 0 MG Oral Tablet [facility]) Albuterol 0.833 MG/ML / Ipratropium Brom ramon 0.167 MG/ML Inhalant Solution ipratropium-albuterol (DUONEB) 0.5-2.5 (3) MG/3ML SOLN ipratropium-albuterol (DUONEB) 0.5-2.5 (3) MG/3ML SOLN 3 mL Nebulization aborted Take 3 mLs by nebulization as needed. [facility] Omeprazole 20 MG Delayed Release Oral Ca psule omeprazole 20 mg capsule,delayed release omeprazole 20 mg capsule,delayed release completed omeprazole 20 MG Delayed Release Oral Capsule [place] ([facility]) Loratadine 10 MG Oral Tablet loratadine 10 mg tablet loratadine 10 mg tablet completed loratadine 10 MG Oral Tablet [facility]) Omeprazole 20 MG Delayed Release Oral Ca psule omeprazole 20 mg capsule,delayed release omeprazole 20 mg capsule,delayed release completed omeprazole 20 MG Delayed Release Oral Capsule [facility]) d3 high potency 125 mcg (5000 ut) caps completed d3 high potency 125 mcg (5000 ut) caps [place] ([facility]) Famotidine 20 MG Oral Tablet famotidine 20 mg tablet famotidine 20 mg tablet completed famotidine 20 MG Oral Tablet [facility]) Omeprazole 20 MG Delayed Release Oral Ca psule omeprazole 20 mg capsule,delayed release omeprazole 20 mg capsule,delayed release completed omeprazole 20 MG Delayed Release Oral Capsule [place] ([facility]) pantoprazole 40 MG Delayed Release Oral Tablet pantoprazole 40 mg tablet,delayed release pantoprazole 40 mg tablet,delayed release completed pantoprazole 40 MG Delayed Release Oral Tablet [place] ([facility]) pantoprazole 40 MG Delayed Release Oral Tablet pantoprazole 40 mg tablet,delayed release pantoprazole 40 mg tablet,delayed release completed pantoprazole 40 MG Delayed Release Oral Tablet [place] ([facility]) albuterol (PROVENTIL HFA;VENTOLIN HFA) 108 (90 BASE) MCG/ACT inhale r [id number] 2 {puff} Inhalation aborted Inhale 2 puffs into the lungs every 6 (six) hours as needed [facility] d3 high potency 125 mcg (5000 ut) caps completed d3 high potency 125 mcg (5000 ut) caps [facility] er) Fluconazole 150 MG Oral Tablet fluconazole 150 mg tabl et fluconazole 150 mg tablet completed fluconazole 150 MG Oral Tablet [facility]) Omeprazole 20 MG Delayed Release Oral Ca psule omeprazole 20 mg capsule,delayed release omeprazole 20 mg capsule,delayed release completed omeprazole 20 MG Delayed Release Oral Capsule [facility]) Azithromycin 250 MG Oral Tablet azithromycin 250 mg ta blet azithromycin 250 mg tablet completed azithromycin 25 0 MG Oral Tablet [facility]) Famotidine 20 MG Oral Tablet famotidine 20 mg tablet famotidine 20 mg tablet completed famotidine 20 MG Oral Tablet [facility]) Famotidine 20 MG Oral Tablet famotidine (PEPCID) 20 MG tablet famotidine (PEPCID) 20 MG tablet 40 mg Oral aborted Take 40 mg by mouth Two Times Daily. [facility] Fluconazole 150 MG Oral Tablet fluconazole 150 mg tabl et fluconazole 150 mg tablet completed fluconazole 150 MG Oral Tablet [facility]) Famotidine 20 MG Oral Tablet famotidine 20 mg tablet famotidine 20 mg tablet completed famotidine 20 MG Oral Tablet [place] ([facility]) Azithromycin 250 MG Oral Tablet azithromycin 250 mg ta blet azithromycin 250 mg tablet completed azithromycin 25 0 MG Oral Tablet [place] ([facility]) cetirizine hydrochloride 10 MG Oral Tabl et cetirizine 10 mg tablet Take 1 tablet every day by oral route for 90 days. cetirizine 10 mg tablet Take 1 tablet every day by oral route for 90 days. 1 c ompleted cetirizine hydrochloride 10 MG Oral Tablet [place] ([facility]) COLLAGENASE 0.25 UNT/MG Topical Ointment [Santyl] Santyl 250 unit/gram topical ointment Santyl 250 unit/gram topical ointment completed collagenase 0.25 UNT/MG Topical Ointment [Santyl] [facility]) Omeprazole 20 MG Delayed Release Oral Ca psule omeprazole 20 mg capsule,delayed release omeprazole 20 mg capsule,delayed release completed omeprazole 20 MG Delayed Release Oral Capsule [facility]) COLLAGENASE 0.25 UNT/MG Topical Ointment [Santyl] Santyl 250 unit/gram topical ointment Santyl 250 unit/gram topical ointment completed collagenase 0.25 UNT/MG Topical Ointment [Santyl] [place] ([facility]) Cefuroxime 500 MG Oral Tablet cefuroxime axetil 500 mg tablet cefuroxime axetil 500 mg tablet completed cefuroxi me 500 MG Oral Tablet [place] ([facility]) Omeprazole 20 MG Delayed Release Oral Ca psule omeprazole 20 mg capsule,delayed release omeprazole 20 mg capsule,delayed release completed omeprazole 20 MG Delayed Release Oral Capsule [place] ([facility]) Famotidine 20 MG Oral Tablet famotidine 20 mg tablet famotidine 20 mg tablet completed famotidine 20 MG Oral Tablet [place] ([facility]) cetirizine hydrochloride 10 MG Oral Tabl et cetirizine 10 mg tablet Take 1 tablet every day by oral route for 90 days. cetirizine 10 mg tablet Take 1 tablet every day by oral route for 90 days. 1 c ompleted cetirizine hydrochloride 10 MG Oral Tablet [place] ([facility]) pantoprazole 40 MG Delayed Release Oral Tablet pantoprazole 40 mg tablet,delayed release pantoprazole 40 mg tablet,delayed release completed pantoprazole 40 MG Delayed Release Oral Tablet [place] ([facility]) COLLAGENASE 0.25 UNT/MG Topical Ointment [Santyl] Santyl 250 unit/gram topical ointment Santyl 250 unit/gram topical ointment completed collagenase 0.25 UNT/MG Topical Ointment [Santyl] [place] ([facility]) Naproxen sodium 220 MG Oral Capsule Naproxen Sodium 22 0 MG Oral Capsule (Aleve) Naproxen Sodium 220 MG Oral Capsule (Aleve) 220 mg Oral aborted Take 220 mg by mouth Two times daily as needed [facility] cetirizine hydrochloride 10 MG Oral Tabl et cetirizine 10 mg tablet Take 1 tablet every day by oral route for 90 days. cetirizine 10 mg tablet Take 1 tablet every day by oral route for 90 days. 1 c ompleted cetirizine hydrochloride 10 MG Oral Tablet [place] ([facility]) Cefuroxime 500 MG Oral Tablet cefuroxime axetil 500 mg tablet cefuroxime axetil 500 mg tablet completed cefuroxi me 500 MG Oral Tablet [place] ([facility]) d3 high potency 125 mcg (5000 ut) caps completed d3 high potency 125 mcg (5000 ut) caps [place] ([facility]) pantoprazole 40 MG Delayed Release Oral Tablet pantoprazole 40 mg tablet,delayed release pantoprazole 40 mg tablet,delayed release completed pantoprazole 40 MG Delayed Release Oral Tablet [place] ([facility]) Cefuroxime 500 MG Oral Tablet cefuroxime axetil 500 mg tablet cefuroxime axetil 500 mg tablet completed cefuroxi me 500 MG Oral Tablet [place] ([facility]) Loratadine 10 MG Oral Tablet loratadine 10 mg tablet loratadine 10 mg tablet completed loratadine 10 MG Oral Tablet [place] ([facility]) pantoprazole 40 MG Delayed Release Oral Tablet pantoprazole 40 mg tablet,delayed release pantoprazole 40 mg tablet,delayed release completed pantoprazole 40 MG Delayed Release Oral Tablet [place] ([facility]) Omeprazole 20 MG Delayed Release Oral Ca psule omeprazole 20 mg capsule,delayed release omeprazole 20 mg capsule,delayed release completed omeprazole 20 MG Delayed Release Oral Capsule [place] ([facility]) Loratadine 10 MG Oral Tablet loratadine 10 mg tablet loratadine 10 mg tablet completed loratadine 10 MG Oral Tablet [facility]) Azithromycin 250 MG Oral Tablet azithromycin 250 mg ta blet azithromycin 250 mg tablet completed azithromycin 25 0 MG Oral Tablet [facility]) COLLAGENASE 0.25 UNT/MG Topical Ointment [Santyl] Santyl 250 unit/gram topical ointment Santyl 250 unit/gram topical ointment completed collagenase 0.25 UNT/MG Topical Ointment [Santyl] [place] ([facility]) Fluconazole 150 MG Oral Tablet fluconazole 150 mg tabl et fluconazole 150 mg tablet completed fluconazole 150 MG Oral Tablet [facility]) d3 high potency 125 mcg (5000 ut) caps completed d3 high potency 125 mcg (5000 ut) caps [facility]) Famotidine 20 MG Oral Tablet famotidine 20 mg tablet famotidine 20 mg tablet completed famotidine 20 MG Oral Tablet [facility]) Loratadine 10 MG Oral Tablet loratadine 10 mg tablet loratadine 10 mg tablet completed loratadine 10 MG Oral Tablet [facility]) Cefuroxime 500 MG Oral Tablet cefuroxime axetil 500 mg tablet cefuroxime axetil 500 mg tablet completed cefuroxi me 500 MG Oral Tablet [facility]) Famotidine 20 MG Oral Tablet famotidine 20 mg tablet famotidine 20 mg tablet completed famotidine 20 MG Oral Tablet [facility]) Loratadine 10 MG Oral Tablet loratadine 10 mg tablet loratadine 10 mg tablet completed loratadine 10 MG Oral Tablet [facility]) Azithromycin 250 MG Oral Tablet azithromycin 250 mg ta blet azithromycin 250 mg tablet completed azithromycin 25 0 MG Oral Tablet [facility]) Famotidine 20 MG Oral Tablet famotidine 20 mg tablet famotidine 20 mg tablet completed famotidine 20 MG Oral Tablet [facility]) Azithromycin 250 MG Oral Tablet azithromycin 250 mg ta blet azithromycin 250 mg tablet completed azithromycin 25 0 MG Oral Tablet [facility]) Fluconazole 150 MG Oral Tablet fluconazole 150 mg tabl et fluconazole 150 mg tablet completed fluconazole 150 MG Oral Tablet [facility]) Cefuroxime 500 MG Oral Tablet cefuroxime axetil 500 mg tablet cefuroxime axetil 500 mg tablet completed cefuroxi me 500 MG Oral Tablet [place] ([facility]) Cefuroxime 500 MG Oral Tablet cefuroxime axetil 500 mg tablet cefuroxime axetil 500 mg tablet completed cefuroxi me 500 MG Oral Tablet [place] ([facility]) cetirizine hydrochloride 10 MG Oral Tabl et cetirizine 10 mg tablet Take 1 tablet every day by oral route for 90 days. cetirizine 10 mg tablet Take 1 tablet every day by oral route for 90 days. 1 c ompleted cetirizine hydrochloride 10 MG Oral Tablet [place] ([facility]) pantoprazole 40 MG Delayed Release Oral Tablet pantoprazole 40 mg tablet,delayed release pantoprazole 40 mg tablet,delayed release completed pantoprazole 40 MG Delayed Release Oral Tablet [place] ([facility]) cetirizine hydrochloride 10 MG Oral Tabl et cetirizine 10 mg tablet Take 1 tablet every day by oral route for 90 days. cetirizine 10 mg tablet Take 1 tablet every day by oral route for 90 days. 1 c ompleted cetirizine hydrochloride 10 MG Oral Tablet [place] ([facility]) pantoprazole 40 MG Delayed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 [place] ([facility]) Name Value Range Interpretation Code Description Data Anjelica rce(s) Supporting Document(s) estimated average glucose 214 mg/dL 60-110 Above high norm al Estimated Average Glucose [place] ([facility]) Hemoglobin A1c/Hemoglobin.total in Blood 9.1 % normal Hemoglobin a1C [place] ([facility]) ID Date Data Source [id number] 05/10/2020 09:45:00 AM EST [place] ([facility]) Name Value Range Interpretation Code Description Data Anjelica rce(s) Supporting Document(s) thyroid stimulating hormone 3.570 uIU/mL 0.358-3.740 normal Thyroid Stimulating Hormone [place] ([facility]) ID Date Data Source [id number] 05/10/2020 09:45:00 AM EST [place] ([facility]) Name Value Range Interpretation Code Description Data Anjelica rce(s) Supporting Document(s) cholesterol level 174 mg/dL <200 normal Cholesterol Level [place] ([facility]) HDL cholesterol 46 mg/dL >40 normal HDL Cholesterol [place] ([facility]) triglycerides level 241 mg/dL <150 Above high normal Triglycer ides Level [place] ([facility]) cholesterol risk ratio <5 normal Cholesterol R isk Ratio [place] ([facility]) Cholesterol in LDL [Mass/volume] in Serum or Plasma 80 mg/dL <1 00 normal LDL Cholesterol [place] ([facility]) non-HDL-C 128 mg/dL normal Non-hdl-c [place] ([facility]) ID Date Data Source [id number] 05/10/2020 09:45:00 AM EST [place] ([facility]) Name Value Range Interpretation Code Description Data Anjelica rce(s) Supporting Document(s) blood urea nitrogen 34 mg/dL 7-18 Above high normal Blood Ure a Nitrogen [place] ([facility]) creatinine for GFR 1.50 mg/dL 0.55-1.30 Above high normal Creatinine for GFR [place] ([facility]) glucose, fasting 276 mg/dL 70-100 Above high normal Glucose, Fas ting [place] ([facility]) potassium serum 5.0 mEq/L 3.5-5.1 normal Potassium Serum AT[facility] NA ([facility]) glomerular filtration rate >51 Below low normal Thania merular Filtration Rate [place] ([facility]) sodium level 139 mEq/L 136-145 normal Sodium Level [facility] ([facility]) anion gap 4 mEq/L 8-16 Below low normal Anion Gap [place] ( [facility]) carbon dioxide level 29 mEq/L 21-32 normal Carbon Dioxide Level [place] ([facility]) chloride level 106 mEq/L 98-107 normal Chloride Level [place] ([facility]) calcium level 8.9 mg/dL 8.5-10.1 normal Calcium Level [place] ( [facility]) alkaline phosphatase 147 U/L 45-117 Above high normal Alkaline Phosphatase [place] ([facility]) AST/SGOT 27 U/L 7-37 normal AST/SGOT [place] ([facility]) ALT/SGPT 40 U/L 12-78 normal ALT/SGPT [place] ([facility]) bilirubin,total 0.3 mg/dL 0.2-1.0 normal Bilirubin,total [place] ([facility]) albumin 3.5 gm/dL 3.2-5.2 normal Albumin [place] ([facility]) albumin/globulin ratio 1.2-2.2 normal Albumin/globu gray Ratio [place] ([facility]) total protein 6.4 gm/dL 6.4-8.2 normal Total Protein [place] ( [facility]) ID Date Data Source [id number] 05/10/2020 09:45:00 AM EST [place] ([facility]) Name Value Range Interpretation Code Description Data Anjelica rce(s) Supporting Document(s) red blood count 4.25 10 4.00-5.40 normal Red Blood Count [place] ([facility]) white blood count 7.6 10 4.0-10.0 normal White Blood Count [place] ([facility]) hemoglobin 12.3 g/dL 12.0-15.5 normal Hemoglobin [place] ([facility]) mean corpuscular volume 91.3 fL 80.0-96.0 normal Mean Corpusc ular Volume [place] ([facility]) mean corpuscular HGB conc 31.7 g/dL 32.0-36.5 Below low tami l Mean Corpuscular HGB Conc [facility] ([facility]) mean corpuscular hemoglobin 28.9 pg 27.0-33.0 normal Mean Corpuscular Hemoglobin [facility] ([facility]) hematocrit 38.8 % 36.0-47.0 normal Hematocrit [facility] ([facility]) red cell distribution width 15.0 % 11.5-14.5 Above high no rmal Red Cell Distribution Width [place] ([facility]) platelet count, automated 266 10 150-450 normal Platelet C ount, Automated [place] ([facility]) nucleated red blood cell % 0.0 % 0-0 normal Nucleated Red Blood Cell % [place] ([facility]) ID Date Data Source [id number] 05/10/2020 09:45:00 AM EST [facility]) Name Value Range Interpretation Code Description Data Anjelica rce(s) Supporting Document(s) Hemoglobin A1c/Hemoglobin.total in Blood 9.1 % normal Hemoglobin a1C [place] ([facility]) estimated average glucose 214 mg/dL 60-110 Above high norm al Estimated Average Glucose [facility]) ID Date Data Source [id number] 05/10/2020 09:45:00 AM EST [facility]) Name Value Range Interpretation Code Description Data Anjelica rce(s) Supporting Document(s) thyroid stimulating hormone 3.570 uIU/mL 0.358-3.740 normal Thyroid Stimulating Hormone [facility]) ID Date Data Source [id number] 05/10/2020 09:45:00 AM EST [facility]) Name Value Range Interpretation Code Description Data Anjelica rce(s) Supporting Document(s) cholesterol level 174 mg/dL <200 normal Cholesterol Level [facility]) triglycerides level 241 mg/dL <150 Above high normal Triglycer ides Level [place] ([facility]) Cholesterol in LDL [Mass/volume] in Serum or Plasma 80 mg/dL <1 00 normal LDL Cholesterol [place] ([facility]) HDL cholesterol 46 mg/dL >40 normal HDL Cholesterol ATHE NA ([facility]) non-HDL-C 128 mg/dL normal Non-hdl-c [place] ([facility]) cholesterol risk ratio <5 normal Cholesterol R isk Ratio [place] ([facility]) ID Date Data Source [id number] 05/10/2020 09:45:00 AM EST [place] ([facility]) Name Value Range Interpretation Code Description Data Anjelica rce(s) Supporting Document(s) glucose, fasting 276 mg/dL 70-100 Above high normal Glucose, Fas ting [place] ([facility]) blood urea nitrogen 34 mg/dL 7-18 Above high normal Blood Ure a Nitrogen [place] ([facility]) creatinine for GFR 1.50 mg/dL 0.55-1.30 Above high normal Creatinine for GFR [place] ([facility]) glomerular filtration rate >51 Below low normal Thania merular Filtration Rate [place] ([facility]) potassium serum 5.0 mEq/L 3.5-5.1 normal Potassium Serum AT[facility] NA ([facility]) sodium level 139 mEq/L 136-145 normal Sodium Level [place] ([facility]) carbon dioxide level 29 mEq/L 21-32 normal Carbon Dioxide Level [place] ([facility]) chloride level 106 mEq/L 98-107 normal Chloride Level [place] ([facility]) anion gap 4 mEq/L 8-16 Below low normal Anion Gap [place] ( [facility]) ALT/SGPT 40 U/L 12-78 normal ALT/SGPT [place] ([facility]) AST/SGOT 27 U/L 7-37 normal AST/SGOT [place] ([facility]) calcium level 8.9 mg/dL 8.5-10.1 normal Calcium Level [place] ( [facility]) bilirubin,total 0.3 mg/dL 0.2-1.0 normal Bilirubin,total [facility] ([facility]) alkaline phosphatase 147 U/L 45-117 Above high normal Alkaline Phosphatase [place] ([facility]) total protein 6.4 gm/dL 6.4-8.2 normal Total Protein [place] ( [facility]) albumin/globulin ratio 1.2-2.2 normal Albumin/globu gray Ratio [place] ([facility]) albumin 3.5 gm/dL 3.2-5.2 normal Albumin [facility] ([facility]) ID Date Data Source [id number] 05/10/2020 09:45:00 AM EST [place] ([facility]) Name Value Range Interpretation Code Description Data Anjelica rce(s) Supporting Document(s) white blood count 7.6 10 4.0-10.0 normal White Blood Count [place] ([facility]) hemoglobin 12.3 g/dL 12.0-15.5 normal Hemoglobin [place] ([facility]) red blood count 4.25 10 4.00-5.40 normal Red Blood Count [place] ([facility]) hematocrit 38.8 % 36.0-47.0 normal Hematocrit [place] ([facility]) mean corpuscular hemoglobin 28.9 pg 27.0-33.0 normal Mean Corpuscular Hemoglobin [place] ([facility]) mean corpuscular volume 91.3 fL 80.0-96.0 normal Mean Corpusc ular Volume [place] ([facility]) red cell distribution width 15.0 % 11.5-14.5 Above high no rmal Red Cell Distribution Width [place] ([facility]) mean corpuscular HGB conc 31.7 g/dL 32.0-36.5 Below low tami l Mean Corpuscular HGB Conc [place] ([facility]) platelet count, automated 266 10 150-450 normal Platelet C ount, Automated [place] ([facility]) nucleated red blood cell % 0.0 % 0-0 normal Nucleated Red Blood Cell % [place] ([facility]) ID Date Data Source [id number] 05/10/2020 09:45:00 AM EST [place] ([facility]) Name Value Range Interpretation Code Description Data Anjelica rce(s) Supporting Document(s) estimated average glucose 214 mg/dL 60-110 Above high norm al Estimated Average Glucose [place] ([facility]) Hemoglobin A1c/Hemoglobin.total in Blood 9.1 % normal Hemoglobin a1C [place] ([facility]) ID Date Data Source [id number] 05/10/2020 09:45:00 AM EST [place] ([facility]) Name Value Range Interpretation Code Description Data Anjelica rce(s) Supporting Document(s) thyroid stimulating hormone 3.570 uIU/mL 0.358-3.740 normal Thyroid Stimulating Hormone [place] ([facility]) ID Date Data Source [id number] 05/10/2020 09:45:00 AM EST [place] ([facility]) Name Value Range Interpretation Code Description Data Anjelica rce(s) Supporting Document(s) Cholesterol in LDL [Mass/volume] in Serum or Plasma 80 mg/dL <1 00 normal LDL Cholesterol [place] ([facility]) triglycerides level 241 mg/dL <150 Above high normal Triglycer ides Level [place] ([facility]) cholesterol level 174 mg/dL <200 normal Cholesterol Level [place] ([facility]) HDL cholesterol 46 mg/dL >40 normal HDL Cholesterol ATHE NA ([facility]) non-HDL-C 128 mg/dL normal Non-hdl-c [place] ([facility]) cholesterol risk ratio <5 normal Cholesterol R isk Ratio [place] ([facility]) ID Date Data Source [id number] 05/10/2020 09:45:00 AM EST [place] ([facility]) Name Value Range Interpretation Code Description Data Anjelica rce(s) Supporting Document(s) glucose, fasting 276 mg/dL 70-100 Above high normal Glucose, Fas ting [place] ([facility]) blood urea nitrogen 34 mg/dL 7-18 Above high normal Blood Ure a Nitrogen [place] ([facility]) creatinine for GFR 1.50 mg/dL 0.55-1.30 Above high normal Creatinine for GFR [place] ([facility]) glomerular filtration rate >51 Below low normal Thania merular Filtration Rate [place] ([facility]) chloride level 106 mEq/L 98-107 normal Chloride Level [place] ([facility]) sodium level 139 mEq/L 136-145 normal Sodium Level [place] ([facility]) potassium serum 5.0 mEq/L 3.5-5.1 normal Potassium Serum [place] ([facility]) AST/SGOT 27 U/L 7-37 normal AST/SGOT [place] ([facility]) calcium level 8.9 mg/dL 8.5-10.1 normal Calcium Level [place] ( [facility]) anion gap 4 mEq/L 8-16 Below low normal Anion Gap [place] ( [facility]) carbon dioxide level 29 mEq/L 21-32 normal Carbon Dioxide Level T[place] ([facility]) bilirubin,total 0.3 mg/dL 0.2-1.0 normal Bilirubin,total ATHE [facility]) alkaline phosphatase 147 U/L 45-117 Above high normal Alkaline Phosphatase [place] ([facility]) albumin 3.5 gm/dL 3.2-5.2 normal Albumin [place] ([facility]) ALT/SGPT 40 U/L 12-78 normal ALT/SGPT [place] ([facility]) total protein 6.4 gm/dL 6.4-8.2 normal Total Protein [place] ( [facility]) albumin/globulin ratio 1.2-2.2 normal Albumin/globu gray Ratio [place] ([facility]) ID Date Data Source [id number] 05/10/2020 09:45:00 AM [facility] Name Value Range Interpretation Code Description Data Anjelica rce(s) Supporting Document(s) hemoglobin 12.3 g/dL 12.0-15.5 normal Hemoglobin [place] ([facility]) red blood count 4.25 10 4.00-5.40 normal Red Blood Count ATHE NA ([facility]) white blood count 7.6 10 4.0-10.0 normal White Blood Count [place] ([facility]) mean corpuscular volume 91.3 fL 80.0-96.0 normal Mean Corpusc ular Volume [place] ([facility]) mean corpuscular hemoglobin 28.9 pg 27.0-33.0 normal Mean Corpuscular Hemoglobin [place] ([facility]) hematocrit 38.8 % 36.0-47.0 normal Hematocrit [place] ([facility]) mean corpuscular HGB conc 31.7 g/dL 32.0-36.5 Below low tami l Mean Corpuscular HGB Conc [place] ([facility]) platelet count, automated 266 10 150-450 normal Platelet C ount, Automated [place] ([facility]) nucleated red blood cell % 0.0 % 0-0 normal Nucleated Red Blood Cell % [place] ([facility]) red cell distribution width 15.0 % 11.5-14.5 Above high no rmal Red Cell Distribution Width [place] ([facility]) ID Date Data Source [id number] 05/10/2020 09:45:00 AM EST [place] ([facility]) Name Value Range Interpretation Code Description Data Anjelica rce(s) Supporting Document(s) Hemoglobin A1c/Hemoglobin.total in Blood 9.1 % normal Hemoglobin a1C [place] ([facility]) estimated average glucose 214 mg/dL 60-110 Above high norm al Estimated Average Glucose [facility]) ID Date Data Source [id number] 05/10/2020 09:45:00 AM EST [place] ([facility]) Name Value Range Interpretation Code Description Data Anjelica rce(s) Supporting Document(s) thyroid stimulating hormone 3.570 uIU/mL 0.358-3.740 normal [facility]roid [facility]one [facility] ID Date Data Source [id number] 05/10/2020 09:45:00 AM EST [place] ([facility]) Name Value Range Interpretation Code Description Data Anjelica rce(s) Supporting Document(s) cholesterol level 174 mg/dL <200 normal Cholesterol Level [place] ([facility]) Cholesterol in LDL [Mass/volume] in Serum or Plasma 80 mg/dL <1 00 normal LDL Cholesterol [place] ([facility]) triglycerides level 241 mg/dL <150 Above high normal Triglycer ides Level [place] ([facility]) HDL cholesterol 46 mg/dL >40 normal HDL Cholesterol AT[place] NA ([facility]) non-HDL-C 128 mg/dL normal Non-hdl-c [place] ([facility]) cholesterol risk ratio <5 normal Cholesterol R isk Ratio [place] ([facility]) ID Date Data Source [id number] 05/10/2020 09:45:00 AM EST [place] ([facility]) Name Value Range Interpretation Code Description Data Anjelica rce(s) Supporting Document(s) blood urea nitrogen 34 mg/dL 7-18 Above high normal Blood Ure a Nitrogen [place] ([facility]) creatinine for GFR 1.50 mg/dL 0.55-1.30 Above high normal Creatinine for GFR [place] ([facility]) glucose, fasting 276 mg/dL 70-100 Above high normal Glucose, Fas ting [place] ([facility]) carbon dioxide level 29 mEq/L 21-32 normal Carbon Dioxide Level [place] ([facility]) potassium serum 5.0 mEq/L 3.5-5.1 normal Potassium Serum [place] ([facility]) chloride level 106 mEq/L 98-107 normal Chloride Level [place] ([facility]) glomerular filtration rate >51 Below low normal Thania merular Filtration Rate [place] ([facility]) sodium level 139 mEq/L 136-145 normal Sodium Level [place] ([facility]) anion gap 4 mEq/L 8-16 Below low normal Anion Gap [place] ( [facility]) calcium level 8.9 mg/dL 8.5-10.1 normal Calcium Level [place] ( [facility]) AST/SGOT 27 U/L 7-37 normal AST/SGOT [place] ([facility]) ALT/SGPT 40 U/L 12-78 normal ALT/SGPT [place] ([facility]) total protein 6.4 gm/dL 6.4-8.2 normal Total Protein [place] ( [facility]) bilirubin,total 0.3 mg/dL 0.2-1.0 normal Bilirubin,total [place] ([facility]) alkaline phosphatase 147 U/L 45-117 Above high normal Alkaline Phosphatase [place] ([facility]) albumin 3.5 gm/dL 3.2-5.2 normal Albumin [place] ([facility]) albumin/globulin ratio 1.2-2.2 normal Albumin/globu gray Ratio [place] ([facility]) ID Date Data Source [id number] 05/10/2020 09:45:00 AM EST [place] ([facility]) Name Value Range Interpretation Code Description Data Anjelica rce(s) Supporting Document(s) white blood count 7.6 10 4.0-10.0 normal White Blood Count [place] ([facility]) hematocrit 38.8 % 36.0-47.0 normal Hematocrit [place] ([facility]) hemoglobin 12.3 g/dL 12.0-15.5 normal Hemoglobin [place] ([facility]) red blood count 4.25 10 4.00-5.40 normal Red Blood Count [place] ([facility]) mean corpuscular volume 91.3 fL 80.0-96.0 normal Mean Corpusc ular Volume [place] ([facility]) mean corpuscular hemoglobin 28.9 pg 27.0-33.0 normal Mean Corpuscular Hemoglobin [place] ([facility]) platelet count, automated 266 10 150-450 normal Platelet C ount, Automated [place] ([facility]) red cell distribution width 15.0 % 11.5-14.5 Above high no rmal Red Cell Distribution Width [place] ([facility]) mean corpuscular HGB conc 31.7 g/dL 32.0-36.5 Below low tami l Mean Corpuscular HGB Conc [place] ([facility]) nucleated red blood cell % 0.0 % 0-0 normal Nucleated Red Blood Cell % [place] ([facility]) ID Date Data Source [id number] 04/19/2020 02:30:00 PM EST [place] ([facility]) Name Value Range Interpretation Code Description Data Anjelica rce(s) Supporting Document(s) SARS-CoV-2 (COVID-19) RNA [Presence] in Respiratory specimen by ALFRED with probe detection not detected not detected normal Sars Cov 2 RNA [place] ([facility]) ID Date Data Source [id number] 04/19/2020 02:30:00 PM EST [facility]) Name Value Range Interpretation Code Description Data Anjelica rce(s) Supporting Document(s) SARS-CoV-2 (COVID-19) RNA [Presence] in Respiratory specimen by ALFRED with probe detection not detected not detected normal Sars Cov 2 RNA [facility]) ID Date Data Source [id number] 04/19/2020 02:30:00 PM EST [facility]) Name Value Range Interpretation Code Description Data Anjelica rce(s) Supporting Document(s) SARS-CoV-2 (COVID-19) RNA [Presence] in Respiratory specimen by ALFRED with probe detection not detected not detected normal Sars Cov 2 RNA [facility]) ID Date Data Source [id number] 04/19/2020 02:30:00 PM EST [facility]) Name Value Range Interpretation Code Description Data Anjelica rce(s) Supporting Document(s) SARS-CoV-2 (COVID-19) RNA [Presence] in Respiratory specimen by ALFRED with probe detection not detected not detected normal Sars Cov 2 RNA [facility]) ID Date Data Source [id number] 04/19/2020 02:30:00 PM EST [place] ([facility]) Name Value Range Interpretation Code Description Data Anjelica rce(s) Supporting Document(s) SARS-CoV-2 (COVID-19) RNA [Presence] in Respiratory specimen by ALFRED with probe detection not detected not detected normal Sars Cov 2 RNA [place] ([facility]) ID Date Data Source [id number] 04/19/2020 02:30:00 PM EST [place] ([facility]) Name Value Range Interpretation Code Description Data Anjelica rce(s) Supporting Document(s) SARS-CoV-2 (COVID-19) RNA [Presence] in Respiratory specimen by ALFRED with probe detection not detected not detected normal Sars Cov 2 RNA [place] ([facility]) ID Date Data Source [id number] 04/19/2020 02:30:00 PM EST [place] ([facility]) Name Value Range Interpretation Code Description Data Anjelica rce(s) Supporting Document(s) SARS coronavirus 2 RNA [Presence] in Res piratory specimen by ALFRED with probe detection not detected not detected normal Sars Cov 2 RNA [place] ([facility]) ID Date Data Source [id number] 04/19/2020 02:30:00 PM EST [place] ([facility]) Name Value Range Interpretation Code Description Data Anjelica rce(s) Supporting Document(s) SARS coronavirus 2 RNA [Presence] in Res piratory specimen by ALFRED with probe detection not detected not detected normal Sars Cov 2 RNA [place] ([facility]) ID Date Data Source [id number] 03/05/2020 01:19:39 PM [facility] Name Value Range Interpretation Code Description Data Anjelica rce(s) Supporting Document(s) Progress Note [facility] [id number] [facility] [file] [id number] ID Date Data Source [id number] 02/06/2020 11:31:57 AM EDT [facility] Measurements & CalculationsHeight: 61 inches (5 ft. 1 in.) 154.94 cm Weight: 175.4 pounds 79.73 kg Weight: unable to obtain patient weightBody Mass Index (BMI): 33.26BMI Interpretation: ObeseBody Surface Area (BSA): 1.79Weight Management Education Done (Nutrition/Physical Activity)Vital SignsTemperature: 96.4F 35.78C tympanic Pulse Rate: 62 beats/minuteRespiratory Rate: 18 respirations/minuteBlood Pressure: 136/84 right arm sitting automaticO2 Saturation: 99% Vital Signs performed by: Riya Brewer LPN, February 06, 2020 11:35 AMVital Signs performed by: Cristian GRUBBS, February 06, 2020 11:58 AMInitial Intake Information From: patientRoom #: 2Infectious Disease / Travel ScreeningRecent travel for you or any close contacts? NoHave you had any close contact with anyone diagnosed with or under investigation for COVID-19 (coronavirus)? NoFever? NoRespiratory symptoms: cough, cold, congestion, shortness of breath, difficulty breathing? NoLoss of smell? NoLoss of taste? NoSmoking, Tobacco, Vaping or Smoke Exposure StatusSmoke Status: current every day smokerTobacco Use: YesAdv to Quit: YesDo you vape? NoPassive Smoke Exposure: YesMenstrual HistoryAny possibility of ? NoComments: irregularHealthcare HistorySince your last office visit...Have you been admitted to the hospital? NoHave you been to an emergency room (ER) or urgent care clinic? NoHave you seen another healthcare provider? YesHave you seen a dentist? YesIntake performed by: Riya Brewer LPN, February 06, 2020 11:33 AMRate Your HealthIn general, would you say your health is? FairPain AssessmentAre you currently having any pain which... You would like your provider to address? Yes Affects your activity level? YesDepression Screening - PHQ-2Over the last two weeks, have you... Had little interest or pleasure in doing things? Not at all Been feeling down, depressed, or hopeless? Not at all PHQ-2 Score: 0Anxiety Screening - ZACK-2Over the last two weeks, have you been... Feeling nervous, anxious, or on edge? Not at all Unable to stop or control worrying? Not at all ZACK-2 Score: 0Food InsecurityWithin the past year...Did you worry whether your food would run out before you got money to buy more? Never trueWas there a time when the food you bought didn't last and you didn't have money to get more? Never trueScreening, Brief Intervention, & Referral to Treatment (SBIRT)Pre-Screening Questions How many times have you have 4 or more drinks in a day? 0How many times have you used an illegal drug or used a prescription medication for a non-medical reason? 0Performed by: Riya Brewer LPN, February 06, 2020 11:34 AMPatient History Medical History:AsthmaAnxiety DisorderDiabetes, Type 2G E R DHypertensionMemory loss/confussionSeizuresUTIsAneurysmSurgical History:Breast Surgery: right lumpectomyleft elbow cyst removal 2009 Left shoulderrelived pressure from brai ndrained fluid from lungsintubatedFamily History:Family History of AsthmaFH Breast CancerFH Heart DiseaseFH Lung/Respiratory DiseaseFH Other CancerFamily History of Cervical CancerFH Lung CancerFH Ovarian CancerSocial/Personal History: Advised to Quit/Tobacco Education: YesChief Complaintfollow-up visitHistory of Present Illness (HPI)54 yo female presents for f/u. Pt states she is having some ear pain, mostly right ear.Pt also states her back is starting to really bother her again, mostly in morning. Pending referral to [facility]. Transitions of Care InboundProblem ReviewProblem List was reviewed and/or updated during this visit.Medication Reconciliation & ReviewMedication List was reviewed and/or updated during this visit, including review of any iekj-fyy-evppety medications, herbal therapies, and/or supplements.Allergy ReviewAllergy List was reviewed and/or updated during this visit.Adult Preventive CareScreening Tobacco Screening: Smoking Status: current every day smoker (02/06/2020) Tobacco Use: Currently (02/06/2020) Advised to Quit: Yes (02/06/2020)Labs/Meds/Other Counseling-Nutrition and Physical Activity:BMI Interpretation: Obese (02/06/2020) Counseling: Done (02/06/2020) Physical Activity: Done (02/06/2020)Review of Systems General: Denies loss of appetite, chills, dizziness, fatigue, fever. Ears/Nose/Throat: Complains of see HPI, earache. Denies nasal congestion, sore throat. Cardiovascular: Denies chest pain, palpitations, feeling faint. Respiratory: Denies cough, difficulty breathing, shortness of breath. Gastrointestinal: Denies nausea, vomiting, diarrhea, pain or discomfort. Musculoskeletal: Complains of see HPI, back pain, stiffness. Denies recent injury. Skin: Denies rash, redness, suspicious lesions. Neurologic: Denies seizures, slurred speech, feeling faint. reports improving strengthPsychiatric: Denies depression, anxiety. Physical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 18.4 % 11.5-14.5 H [facility] Platelets [#/volume] in Blood by Automated count 258 10*3/uL 150-400 [facility] Confirmed Differential cell count method - Blood [facility] Neutrophils/100 leukocytes in Blood by Automated count 63 % [facility] Lymphocytes/100 leukocytes in Blood by Automated count 26 % [facility] Monocytes/100 leukocytes in Blood by Automated count 6 % [facility] Eosinophils/100 leukocytes in Blood by Automated count 4 % [facility] Basophils/100 leukocytes in Blood by Automated count 1 % [facility] Neutrophils [#/volume] in Blood by Automated count 5.43 10*3/uL 1.8-7 .0 [facility] Lymphocytes [#/volume] in Blood by Automated count 2.21 10*3/uL 1.2-4 .0 [facility] Monocytes [#/volume] in Blood by Automated count 0.49 10*3/uL 0-0.8 [facility] Eosinophils [#/volume] in Blood by Automated count 0.33 10*3/uL 0-0.5 [facility] Basophils [#/volume] in Blood by Automated count 0.09 10*3/uL 0-0.2 [facility] Nucleated erythrocytes/100 leukocytes [Ratio] in Blood by Automated count 0 /100{WBCs} 0-0 [facility] ID Date Data Source [id number] 11/27/2019 09:39:38 PM EDT [facility] Name Value Range Interpretation Code Description Data Anjelica rce(s) Supporting Document(s) Glucose [Mass/volume] in Capillary blood by Glucometer 259 mg/dL 70- 140 H [facility] ID Date Data Source [id number] 12/01/2019 07:13:12 AM [facility] Service Cmnt XXX-Imp : NoneMicroorganism XXX Cult : Greater than 100,000 col/mlEscherichia coliGreater than 100,000 col/mlKlebsiella pneumoniaeATTENTION This species is always resistant to ampicillin and ticarcillin.(NOTE)Additional testing was performed to rule out a pathogen. Name Value Range Interpretation Code Description Data Anjelica rce(s) Supporting Document(s) ID Date Data Source [id number] 11/27/2019 08:53:31 PM [facility] Name Value Range Interpretation Code Description Data [facility] rce(s) Supporting Document(s) Color of Urine [facility] Clarity of Urine [facility] Specific gravity of Urine by Refractometry automated 1.013 1.003 -1.030 [facility] pH of Urine by Automated test strip 7.0 5.0-8.0 [facility] Protein [Mass/volume] in Urine by Automated test strip 100 mg/dL Neg [facility] Glucose [Mass/volume] in Urine by Automated test strip Neg [facility] Ketones [Mass/volume] in Urine by Automated test strip 5 mg/dL Neg [facility] Bilirubin.total [Presence] in Urine by Automated test strip Negative [facility] Hemoglobin [Presence] in Urine by Automated test strip Neg ative [facility] Leukocyte esterase [Presence] in Urine by Automated test strip Negative [facility] Nitrite [Presence] in Urine by Automated test strip Negati ve [facility] Leukocytes [#/area] in Urine sediment by Automated count 2214 /HPF 0 -5 H [facility] Erythrocytes [#/area] in Urine sediment by Automated count 12 /HPF 0-3 H [facility] Bacteria [#/area] in Urine sediment by Automated count Non e [facility] Epithelial cells.squamous [#/area] in Urine sediment by Auto mated count 3 /HPF None [facility] ID Date Data Source [id number] 11/27/2019 04:28:25 PM [facility] Value Range Interpretation Code Description Data Anjelica rce(s) Supporting Document(s) Glucose [Mass/volume] in Capillary blood by Glucometer 244 mg/dL 70- 140 H [facility] ID Date Data Source [id number] 11/27/2019 12:03:48 PM [facility] Value Range Interpretation Code Description Data Anjelica rce(s) Supporting Document(s) Glucose [Mass/volume] in Capillary blood by Glucometer 189 mg/dL 70- 140 H [facility] ID Date Data Source [id number] 11/27/2019 08:36:24 AM [facility] Value Range Interpretation Code Description Data Anjelica rce(s) Supporting Document(s) Glucose [Mass/volume] in Capillary blood by Glucometer 167 mg/dL 70- 140 H [facility] ID Date Data Source [id number] 11/27/2019 05:39:22 AM [facility] Value Range Interpretation Code Description Data Anjelica rce(s) Supporting Document(s) Bicarbonate [Moles/volume] in Serum 30 mmol/L 22-29 H [facility] Chloride [Moles/volume] in Serum or Plasma 95 mmol/L 98-107 L [facility] Creatinine [Mass/volume] in Serum or Plasma 0.86 mg/dL 0.50-0.90 [facility] Glucose [Mass/volume] in Serum or Plasma 159 mg/dL 70-140 H [facility] Potassium [Moles/volume] in Serum or Plasma 4.3 mmol/L 3.4-5.1 [facility] Sodium [Moles/volume] in Serum or Plasma 137 mmol/L 136-145 [facility] Urea nitrogen [Mass/volume] in Serum or Plasma 27 mg/dL 6-20 H [facility] Anion gap 3 in Serum or Plasma 13 mmol/L 8-15 [facility] Osmolality of Serum or Plasma by calculation 293 mosm/kg 275-300 [facility] Creatinine/Urea nitrogen [Mass Ratio] in Serum or Plasma 32 [facility] Calcium [Mass/volume] in Serum or Plasma 9.3 mg/dL 8.6-10.0 [facility] Glomerular filtration rate/1.73 sq M pre dicted among non-blacks [Volume Rate/Area] in Serum or Plasma by Creatinine-based formula (MDRD) 76 mL/min/1.73m2 >60 [facility] Glomerular filtration rate/1.73 sq M pre dicted among blacks [Volume Rate/Area] in Serum or Plasma by Creatinine-based formula (MDRD) 88 mL/min/1.73m2 >60 [facility] ID Date Data Source [id number] 11/27/2019 05:32:07 AM EDT [facility] Name Value Range Interpretation Code Description Data Anjleica rce(s) Supporting Document(s) Leukocytes [#/volume] in Blood by Automated count 8.1 10*3/uL 4-10 [facility] Erythrocytes [#/volume] in Blood by Automated count 3.36 10*6/uL 4.1- 5.3 L [facility] Hemoglobin [Mass/volume] in Blood 9.9 g/dL 11.5-15.5 L [facility] Hematocrit [Volume Fraction] of Blood by Automated count 29.8 % 3 6-45 L [facility] Erythrocyte mean corpuscular volume [Entitic volume] by Auto mated count 88.7 fL 80-96 [facility] Erythrocyte mean corpuscular hemoglobin [Entitic mass] by Automated count 29.3 pg 27-33 [facility] Erythrocyte mean corpuscular hemoglobin concentration [Mass/volume] by Automated count 33.1 g/dL 32.0-36.0 [facility] width [Ratio] by Automated count 18.2 % 11.5-14.5 H [facility] Platelets [#/volume] in Blood by Automated count 290 10*3/uL 150-400 [facility] Differential cell count method - Blood [facility] Neutrophils/100 leukocytes in Blood by Automated count 67 % [facility] Lymphocytes/100 leukocytes in Blood by Automated count 22 % [facility] Monocytes/100 leukocytes in Blood by Automated count 7 % [facility] Eosinophils/100 leukocytes in Blood by Automated count 3 % [facility] Basophils/100 leukocytes in Blood by Automated count 1 % [facility] Neutrophils [#/volume] in Blood by Automated count 5.50 10*3/uL 1.8-7 .0 [facility] Lymphocytes [#/volume] in Blood by Automated count 1.77 10*3/uL 1.2-4 .0 [facility] Monocytes [#/volume] in Blood by Automated count 0.58 10*3/uL 0-0.8 [facility] Eosinophils [#/volume] in Blood by Automated count 0.20 10*3/uL 0-0.5 [facility] Basophils [#/volume] in Blood by Automated count 0.05 10*3/uL 0-0.2 [facility] Nucleated erythrocytes/100 leukocytes [Ratio] in Blood by Automated count 0 /100{WBCs} 0-0 [facility] ID Date Data Source [id number] 11/26/2019 10:23:15 PM EDT [facility] Name Value Range Interpretation Code Description Data Anjelica rce(s) Supporting Document(s) Glucose [Mass/volume] in Capillary blood by Glucometer 163 mg/dL 70- 140 H [facility] ID Date Data Source [id number] 11/26/2019 05:20:20 PM [facility] Value Range Interpretation Code Description Data Anjelica rce(s) Supporting Document(s) Glucose [Mass/volume] in Capillary blood by Glucometer 178 mg/dL 70- 140 H [facility] ID Date Data Source [id number] [facility] Interpretation Code Description Data Anjelica rce(s) Supporting Document(s) Glucose [Mass/volume] in Capillary blood by Glucometer 190 mg/dL 70- 140 H [facility] ID Date Data Source [id number] 11/26/2019 07:42:38 AM EDT [facility] Name Value Range Interpretation Code Description Data Anjelica rce(s) Supporting Document(s) Glucose [Mass/volume] in Capillary blood by Glucometer 210 mg/dL 70- 140 H [facility] ID Date Data Source [id number] [facility]2019 [facility]16[facility] Value Range Interpretation Code Description Data Anjelica rce(s) Supporting Document(s) Bicarbonate [Moles/volume] in Serum 38 mmol/L 22-29 H [facility] Chloride [Moles/volume] in Serum or Plasma 95 mmol/L 98-107 L [facility] Creatinine [Mass/volume] in Serum or Plasma 1.00 mg/dL 0.50-0.90 H [facility] Glucose [Mass/volume] in Serum or Plasma 197 mg/dL 70-140 H [facility] Potassium [Moles/volume] in Serum or Plasma 4.7 mmol/L 3.4-5.1 [facility] Sodium [Moles/volume] in Serum or Plasma 142 mmol/L 136-145 [facility] Urea nitrogen [Mass/volume] in Serum or Plasma 30 mg/dL 6-20 H [facility] Anion gap 3 in Serum or Plasma 9 mmol/L 8-15 [facility] Osmolality of Serum or Plasma by calculation 305 mosm/kg 275-300 H [facility] Creatinine/Urea nitrogen [Mass Ratio] in Serum or Plasma 30 [facility] Calcium [Mass/volume] in Serum or Plasma 9.3 mg/dL 8.6-10.0 [facility] Glomerular filtration rate/1.73 sq M pre dicted among non-blacks [Volume Rate/Area] in Serum or Plasma by Creatinine-based formula (MDRD) 63 mL/min/1.73m2 >60 [facility] Glomerular filtration rate/1.73 sq M pre dicted among blacks [Volume Rate/Area] in Serum or Plasma by Creatinine-based formula (MDRD) 73 mL/min/1.73m2 >60 [facility] ID Date Data Source [id number] 11/26/2019 03:58:31 AM [facility] Name Value Range Interpretation Code Description Data Anjelica rce(s) Supporting Document(s) Leukocytes [#/volume] in Blood by Automated count 10.9 10*3/uL 4-10 H [facility] Erythrocytes [#/volume] in Blood by Automated count 3.21 10*6/uL 4.1- 5.3 L [facility] Hemoglobin [Mass/volume] in Blood 9.2 g/dL 11.5-15.5 L [facility] Hematocrit [Volume Fraction] of Blood by Automated count 28.7 % 3 6-45 L [facility] Erythrocyte mean corpuscular volume [Entitic volume] by Auto mated count 89.3 fL 80-96 [facility] Erythrocyte mean corpuscular hemoglobin [Entitic mass] by Automated count 28.7 pg 27-33 [facility] Erythrocyte mean corpuscular hemoglobin concentration [Mass/volume] by Automated count 32.2 g/dL 32.0-36.0 [facility] width [Ratio] by Automated count 18.3 % 11.5-14.5 H [facility] Platelets [#/volume] in Blood by Automated count 312 10*3/uL 150-400 [facility] Differential cell count method - Blood [facility] Neutrophils/100 leukocytes in Blood by Automated count 74 % [facility] Lymphocytes/100 leukocytes in Blood by Automated count 15 % [facility] Monocytes/100 leukocytes in Blood by Automated count 7 % [facility] Eosinophils/100 leukocytes in Blood by Automated count 3 % [facility] Basophils/100 leukocytes in Blood by Automated count 1 % [facility] Neutrophils [#/volume] in Blood by Automated count 8.06 10*3/uL 1.8-7 .0 H [facility] Lymphocytes [#/volume] in Blood by Automated count 1.67 10*3/uL 1.2-4 .0 [facility] Monocytes [#/volume] in Blood by Automated count 0.76 10*3/uL 0-0.8 [facility] Eosinophils [#/volume] in Blood by Automated count 0.27 10*3/uL 0-0.5 [facility] Basophils [#/volume] in Blood by Automated count 0.10 10*3/uL 0-0.2 [facility] Nucleated erythrocytes/100 leukocytes [Ratio] in Blood by Automated count 0 /100{WBCs} 0-0 [facility] ID Date Data Source [id number] 11/25/2019 09:21:27 PM [facility] Name Value Range Interpretation Code Description Data Anjelica rce(s) Supporting Document(s) Glucose [Mass/volume] in Capillary blood by Glucometer 209 mg/dL 70- 140 H [facility] ID Date Data Source [id number] 11/25/2019 04:51:48 PM [facility] Value Range Interpretation Code Description Data Anjelica rce(s) Supporting Document(s) Glucose [Mass/volume] in Capillary blood by Glucometer 217 mg/dL 70- 140 H [facility] ID Date Data Source [id number] [facility]/25[facility]2019 12:04:[facility] [id number] RESULTI nterpreted by:Isrrael Castellano MDINDICATION: Follow-up pulmonary edema.TECHNIQUE: XR CHEST FRONTAL ONLY [id number], 11/25/2019 11:25 AM, 45 degrees upright.COMPARISON: 11/23/2019.FINDINGS: The chest wall and mediastinum have not changed. Pleural effusions persist bilaterally. The lungs remain diffusely opacified, consistent with edema or pneumonia, unchanged.IMPRESSION: 1. No substantial change.This document has been electronically signed by Isrrael Castellano MD on 11/25/2019 12:01 PM Name Value Range Interpretation Code Description Data Anjelica rce(s) Supporting Document(s) ID Date Data Source [id number] 11/25/2019 12:13:29 PM [facility] Value Range Interpretation Code Description Data Anjelica rce(s) Supporting Document(s) Glucose [Mass/volume] in Capillary blood by Glucometer 243 mg/dL 70- 140 H [facility] ID Date Data Source [id number] 11/25/2019 08:37:33 AM [facility] Value Range Interpretation Code Description Data Anjelica rce(s) Supporting Document(s) Glucose [Mass/volume] in Capillary blood by Glucometer 291 mg/dL 70- 140 H [facility] ID Date Data Source [id number] 11/25/2019 06:18:49 AM [facility] Value Range Interpretation Code Description Data Anjelica rce(s) Supporting Document(s) Glucose [Mass/volume] in Capillary blood by Glucometer 260 mg/dL 70- 140 [facility] ID Date Data Source [id number] 11/25/2019 04:06:19 AM [facility] Value Range Interpretation Code Description Data Anjelica rce(s) Supporting Document(s) Leukocytes [#/volume] in Blood by Automated count 7.2 10*3/uL 4-10 [facility] Erythrocytes [#/volume] in Blood by Automated count 3.08 10*6/uL 4.1- 5.3 L [facility] Hemoglobin [Mass/volume] in Blood 8.8 g/dL 11.5-15.5 L [facility] Hematocrit [Volume Fraction] of Blood by Automated count 27.5 % 3 6-45 L [facility] Erythrocyte mean corpuscular volume [Entitic volume] by Auto mated count 89.5 fL 80-96 [facility] Erythrocyte mean corpuscular hemoglobin [Entitic mass] by Automated count 28.7 pg 27-33 [facility] Erythrocyte mean corpuscular hemoglobin concentration [Mass/volume] by Automated count 32.1 g/dL 32.0-36.0 [facility] width [Ratio] by Automated count 18.7 % 11.5-14.5 H [facility] Platelets [#/volume] in Blood by Automated count 345 10*3/uL 150-400 [facility] Differential cell count method - Blood [facility] Neutrophils/100 leukocytes in Blood by Automated count 60 % [facility] Lymphocytes/100 leukocytes in Blood by Automated count 28 % [facility] Monocytes/100 leukocytes in Blood by Automated count 7 % [facility] Eosinophils/100 leukocytes in Blood by Automated count 4 % [facility] Basophils/100 leukocytes in Blood by Automated count 1 % [facility] Neutrophils [#/volume] in Blood by Automated count 4.31 10*3/uL 1.8-7 .0 [facility] Lymphocytes [#/volume] in Blood by Automated count 2.02 10*3/uL 1.2-4 .0 [facility] Monocytes [#/volume] in Blood by Automated count 0.52 10*3/uL 0-0.8 [facility] Eosinophils [#/volume] in Blood by Automated count 0.26 10*3/uL 0-0.5 [facility] Basophils [#/volume] in Blood by Automated count 0.07 10*3/uL 0-0.2 [facility] Nucleated erythrocytes/100 leukocytes [Ratio] in Blood by Automated count 0 /100{WBCs} 0-0 [facility] ID Date Data Source [id number] 11/25/2019 04:31:50 AM EDT [facility] Name Value Range Interpretation Code Description Data Anjelica rce(s) Supporting Document(s) Bicarbonate [Moles/volume] in Serum 38 mmol/L 22-29 H [facility] Chloride [Moles/volume] in Serum or Plasma 100 mmol/L 98-107 [facility] Creatinine [Mass/volume] in Serum or Plasma 0.91 mg/dL 0.50-0.90 H [facility] Glucose [Mass/volume] in Serum or Plasma 196 mg/dL 70-140 H [facility] Potassium [Moles/volume] in Serum or Plasma 4.9 mmol/L 3.4-5.1 [facility] Sodium [Moles/volume] in Serum or Plasma 146 mmol/L 136-145 H [facility] Urea nitrogen [Mass/volume] in Serum or Plasma 28 mg/dL 6-20 H [facility] Anion gap 3 in Serum or Plasma 8 mmol/L 8-15 [facility] Osmolality of Serum or Plasma by calculation 314 mosm/kg 275-300 H [facility] Creatinine/Urea nitrogen [Mass Ratio] in Serum or Plasma 31 [facility] Calcium [Mass/volume] in Serum or Plasma 9.1 mg/dL 8.6-10.0 [facility] Glomerular filtration rate/1.73 sq M pre dicted among non-blacks [Volume Rate/Area] in Serum or Plasma by Creatinine-based formula (MDRD) 71 mL/min/1.73m2 >60 [facility] Glomerular filtration rate/1.73 sq M pre dicted among blacks [Volume Rate/Area] in Serum or Plasma by Creatinine-based formula (MDRD) 82 mL/min/1.73m2 >60 [facility] ID Date Data Source [id number] 11/25/2019 02:34:39 AM EDT [facility] Value Range Interpretation Code Description Data Anjelica rce(s) Supporting Document(s) Glucose [Mass/volume] in Capillary blood by Glucometer 120 mg/dL 70- 140 [facility] ID Date Data Source [id number] 11/24/2019 10:02:18 PM EDT [facility] Value Range Interpretation Code Description Data Anjelica rce(s) Supporting Document(s) Glucose [Mass/volume] in Capillary blood by Glucometer 158 mg/dL 70- 140 [facility] ID Date Data Source [id number] [facility] Description Data Anjelica rce(s) Supporting Document(s) Glucose [Mass/volume] in Capillary blood by Glucometer 134 mg/dL 70- 140 [facility] ID Date Data Source [id number] 11/24/2019 04:07:11 PM EDT [facility] XR CHEST FRONTAL ONLY [id number] RESULTI nterpreted by:Jay Reyez MDINDICATION: Status post right-sided thoracentesis.TECHNIQUE: A single frontal view of the chest was obtained.COMPARISON: Chest radiograph dated 11/21/2019.FINDINGS: Right subclavian central venous catheter terminates in the proximal right atrium. Enteric tube traverses below the diaphragm with the distal tip out of the [id number]. The cardiomediastinal contours are unchanged. There is no pneumothorax. Interval decrease in size of right pleural effusion with improvement of the right lung aeration. Interval improvement in left basilar opacity which could be related to atelectasis or airspace disease. The osseous structures of the chest wall are grossly unchanged. IMPRESSION: 1. Interval decrease in size of right pleural effusion with improvement in the right lung aeration.2. Interval improvement in right basilar opacity which could be related to atelectasis or airspace disease.This document has been electronically signed by Isrrael Castellano MD on 11/24/2019 4:04 PM Name Value Range Interpretation Code Description Data Anjelica rce(s) Supporting Document(s) ID Date Data Source [id number] 11/24/2019 12:54:02 PM [facility] Name Value Range Interpretation Code Description Data Anjelica rce(s) Supporting Document(s) Glucose [Mass/volume] in Capillary blood by Glucometer 254 mg/dL 70- 140 H [facility] ID Date Data Source [id number] 11/24/2019 11:45:58 AM EDT [facility] IR IMAGE GUIDED NEEDLE DRAIN PROCEDUREFI NAL RESULTInterpreted by:CHETNA ChaconROCEDURE: ULTRASOUND GUIDED RIGHT THORACENTESISHISTORY/INDICATION: Right pleural effusion. COMPARISON: None.TECHNIQUE:Prior to the start of the procedure a "Timeout" was called, confirming the patient by name, medical record number and date of , and the procedure to be performed was confirmed. All proced ural staff within the room are in agreement.PROCEDURE/FINDINGS:Limited preprocedural chest ultrasound demonstrated right pleural effusion, and this site was targeted for thoracentesis. The overlying skin was prepped and draped with standard sterile technique. After anesthetizing with 2% lidocaine for local anesthesia, direct ultrasound guidance was used to advance a 5 Fr Yueh needle into the right pleural effusion and an image of this access was saved into PACS. A total of 1100 mL of clear yellow fluid was removed. A sterile dressing was placed over the puncture site. Follow-up x-ray shows no evidence of pneumothorax with no significant residual right pleural effusion.The patient tolerated the procedure well without immediate complications. IMPRESSION: Successful and uncomplicated ultrasound guided right thoracentesis yielding 1100 mL.This document has been electronically signed by Nichole Gonzalez MD on 11/24/2019 11:43 AM Name Value Range Interpretation Code Description Data Anjelica rce(s) Supporting Document(s) ID Date Data Source [id number] 11/24/2019 08:40:48 AM [facility] Name Value Range Interpretation Code Description Data Anjelica rce(s) Supporting Document(s) [facility] QFRDSi6hWqJVDiCib6CuDpQpDMBfVJ8hbat1Q8Q1pETxC3TxbKJdz7yyO8EhU5QgNDHjVWVPJW9NjWNf jb2 [file] 9aT92r5gjzmvt5/9/HBHPz/ywM3ab4z8HyXOJ5WrNM33toCmyG9/EXYU+rqppv6r94w9x+315907Q/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 [file] m/w3L1koY5+ZCeSPrdLFqKpN/[employer] Installer/lE0u+KVJQlxFNL G3XPQIRB4d2aHVdpbHYUaD48PhoFe2ne/rjC+8iinD+p8AyXWjN4wW3KZiv9QzqktqpR4g8Nq7fJocsz PjNhX1ASXi6CEINLwu7Bv4+/K+wbbMnb678VSr/23kSFlQiG53LnfK1CEh1SKLh7KlSCQ+JFBqoJIgPl ROPba26KEQEH2vNgMXWzk2B314i984t738h60RX07k S7NPqN9MKcvt4cT6HyvTKfILrcjCtc8md2Gg6djkkhzjv0jpy7BwRZRIwPvILBRupAJA7p0QCOF1n8WY 3hZs5i5r6WC0DOyob74omP6JrDlFeE2r4juke6Ao437c/dia6pcU9SHlZvHDoz5iB9fsB/M05lOsQ11q 4Al2t668TxXjN0qxLNCY4i6UZFk4n8WTKorm8WiTif VeMkuzqOABucjhMEEZay5TGNvof9TdPsupdyb87tg62gf89ue/yD1jpXciuj8v9Nn51tDaw8F/Mvq/mX 2onAhz8zWz+rvx4Eyn+u8z8S4x+tnqz20X/Cu/4ddR8sfsb+Iu+N/5eO5qe3d/0eAK6abd+vh3lmkghI 8vn1ql0+V16/+1oUZCEV3Ufb9ItLrl2+IfTcg2bcBQ 2/+5xRtYMpzEyoa1IAaumqBeSiQgorUleUbWSBDHF2Rmohk3vuztJ2ll7m+v6r1Om2Wu5pI1pSzUk9Ii hljGrd4wk15b4QX5QHDe4F7fN8Uu52K1HFkqvcZRm4NyO2qEVLkOKqfPX0MqxYqwmqUNyRJ/PGorFobD E2BsoBcmEh935lbobra+dxng6f7FScJgDfAskox+ky er2g5BUaOpAmYsexk+zwtd1l1GPpMsBfZuyk9LesbZZMI1pAt+++Dq5r0hI9F41ygiMDjBo6Ay2QD47H FelTOJDspzPYivzOSa7Fuo9a2dv67nUteyt3RtljNj4Pa2gX89FfHyQ0wzsGUR5d1LYOw/K7tW/L734j knP895wdflu1Cpgj4c3Mh3q228AzYn591hwHU3038q JNF2+4xXWRkr9nbMRzpspmtofVyFkGZy6JX3+ijS/FjtrfpvD6Vzqrpv+dt3M18RhgImoPFmxLVlaQS2 Vk35uDa2pnLAKR8qN4/P8SRvQ83t7HZnzBrf4AfXPzZLmIlkYibXJflf+TJnKCoC8k27qwBFcsQrGDZV LrY140Yie+W1uv+q1wgUi95c78y123zgun6y462wtV [file] KLCMDCkGGASWVSvXQSECKTpXFNgDTAEEFZaGRGdFY8cRGlITgvkKEbNYgk6SBJkXHLCOOP870ObNcx4x vCsPKgvwp6Dq+1Ae95hN0X44wnGbtzFimwWKAPiDNGUVeISxXVrIXjZCLSIeqlUCdfbn5LMKYCPUNHT0 paJt29MdKSGVHICFKyxA33ItnR6PVcJiyLxc6RpHsk a4wbVYdzAC7zV2U7jdSJGtecIalnmjMzIXgm62ATsA3c6kxbkS77c5i/aHsc8ELE9q7HqPJ0hZxrC3QB VYdZ2G+Xcdo7K3TQOdlWEmPu9ksqmGBkr8+FVXEkfPQBPlYOGVQk8uawlXi5jQX3e4I+qxBM4Kucwj+D fxx6oReYFwc3M3Ow2Ak3QZnoED/+AmOPqc0BeXWFNE zMogQ4+pRNzP0jokH1TV8OuYB6SoGLxftyVSpTmWOODU8xq+Ma8g+LF6xpIFu7VLwMbwmhbZqlF5yBUz IovIJrKBLHCqocfyGEJEiCgRJdKINCKdSCdiRNgOFtvBYgwWxguhx/QUw3xgkiqSJp75poMXRCB+C8En NnTUIxfbe3CjnT9JcR7K04FIFreH43a6FzDNDVUpdp kpKedHmwhGbjWD1wR6ZShdaY0LNrdGQvJp0gx8zevRPl+ogNrASr7as89YR1iDWMTObSWwR/bjl705/C os9Uc4yr8yo//sE7l314zS/+Pt/ibdj6IQm4Lk9L+//fT5/ae/efv6/YfPv/z0Dr/vFL6fvo++/uL+yP O6jrMi8lqh8HTaN/tP33/8mU/jpJovF3p89Hl/75oL 9fvvvv/4D2/f//q7z+8+v3/44pqiX2n68kf11s6++G74Z183+RtAK2q9Qw83hp91+vb7zx8+vn/79P7z pw/vf/Fgk58J919g3aH+1Zm1HRR5kzwFl++/e/v0y3/4/Mtf/YWf3W/g+2ffvP/F57cvv//20Idw4583 5F6dD938+/Kbb7/6z3/hL5K1+Pjtx+9+/f6rD7/48N Xbd5/f3n38+u3z29+/+452f8peaux083/effOqy0//9pxc4d2/v3p7/9V//As/uzOA+2d//8v3H9+++v FJm6638w9Bs2//ul/3H96+/cDpRFtamp5d1N/+wmHuF/19mL/7/z87rl20+/Kph03busBDvm//4/u3Dx /f/u7Td2/v/asA6258F90XSxo31oE7unV4HySV0c84 +IlT9fgj8754tz31Hkh9di213x//+fd//sMP//T2X//P228+fPPNu0+f3r/75m/ttlU4pcF++/jh/Tdv //hnXU6bV7/96Y9v4+diP/z8tHoZ2OZvo+9+9e8agK+Cuo+s9oc//Riemim9gUL4NwLcxaQ3itjx/uD9 +uX/EwjOaSfvo2l86PLiLb17iK8jMs2sE4+G6+rCR2 ileL6hf0rx9tGippSJ/YNPP/zzD3/+g7aup8qSFle13CUOB703+c6a7d3dyy2M/6ogf3n/TnM431mn99 4Ubo3FQ3/JVFg0VlIWcpJJ3aX+88Mf/+1v3/7823/50ZxXh54m20I8rkwLw+Q4jo1wEbaEaz/w15/efv /Hf/vhz//rt//yFw5/AfjPVr30pb/81Pv2s2J/+p+v i//9n/740+P75nc/BI9e6xT+7vPP/+7z74C/2g6RsXe/eZ8/4kG2KRBtHnrMcwMsd5CqyF+p/ujQRnCu q22GqH45b42/+/z22//9w7/++2fnuXNiP/vF+y9/dm+z24x4Kr05//z5H//6J78+d+IXP/zht//yo3u8 f4R/9dv/+bvf/uvvf/vHf3+EJxKf/rWyP9bzxg7J/8 lPzlV/48tljsN29ZER31c8c/H5h9/99z/+/rhe09fh3pX5e62r941+05Su7iz//bdX6/mnL37z+d1Xv/ z35/RMxC/821/11z3Ay199aFk6doV+/31ym9w5eZev/uvf/dan0cTxA//8xgc/xLieJ//i1w5d9Uk52j 1bx74v2Q0uJlbixcmxF7+///IU228fEg4tthhkypq6 +4+h123Y20gOPY9KyI5jCEEU7ljqbkTcuBIdRT8TPH5wd0IpTvQ7GDYjv8PxHPzwHUu8lPSiFGlbdnWo o4SvhuifY4Nzu9GrCzNeXFEvLyOaJkk7KKJcRpZ9dBMeHhXhUIJlL6NrNQMiXlC5VlHyVEQTYH2MJGAw bnQgMiAwIFI+ZiLsXQ4mqakzKYNeu8NsOAdbXGlcHU NeF6M3aGwsDGJfP0WatP91TQWfK9WtwyM3RZD3HOGvQmGwDZOtkIDfUEXmLSC+PcGtCV8lvavjTJOwf9 QxTWlsQWW1jG1sBReWCFBDQCeTTHvuVdO3s66kdxDRHDCiQCSgPG9KmkFaoNadtiEysYJcBWO2RzQpGH L2ZZSoUZYrGJUAUKPaZLVmACJcSWWjY9VtlSbbVBbA STALYYyQJOfsSjVtw1L0BQLsxoGMA6QPWSMlJKSMEPHSYnLuYpG6PAe4LJdzM3W4JllgK0InSM3ED2Rb RUAuSDOJIRWejnGkDN1DswXzjQ1hQWqTDUXFTOzDQOglFjA7z95rveLTNXYkNLSuQPtcINOuNDAtMBAl NHLhNBFhNXIgYFNkBH1GY6JsCGXfHEUEWYC5s9WiQP FpjnsimklxVr5nvkSiSfa+PxxrNNFyy3MyDFyvV5F4yEPdI4NwE4ItWM8WeRMmISugYZPdXXGmRUBwA5 17deQdOJ8+XA6mi5WkIpbdFXLCJIGpDRPiRFQgIKN5MtWoFXFqJOWgGPUtXyM2EqUbWoETUZKzJZC1AE keTLVaWLNrXXLcJOynQMCpIGC5TGm2FWYlWHCrCU5m MxRdCXTsFmL2YUHiYRSaIBXldkUUJDKzSDDeNRSqWWI1RVJsOCNlDDktOONyTXQpDVM5VSJnLWTfMO5z VsKdKTLhKQOhVafxNGJbFLDogfHSXOXaNWSrNVY2EjOlPDTzKJJzRCwdIGMjBXLjVqi1EXTqMESjKQ1e MoRtNOZyPEX9GAwpFVVwFOJtrgFWCARlEKCnKNAcIw PpDMJmSDNhDWjfFNReASUgAoJmUHZvYZPeAC0nWeTbSYTwZKQ1FRWcSXGtCSTgmnLSGNGjOURtRYk5NX HiSIVzZNUkUJvrSETdFQSnWFW7PPEtVDIzRZ1vDiKzNCSsGGBnBDGwJWGjGWUkudYEUIVsKTUtVIV6ZQ HrHXXhDUWbYKasJSSaKMWuVrw9RVGoNXZlIG5mMrRe LPLzZZS2BPRnJEWtGAUelbHPSSPoPTV8MGI8RJIfBPFlDFOtNGbbCYNkEZLtDxV0JANpEODkBO8bJpLz [id number] [id number] [id number]== ID Date Data Source [id number] 11/24/2019 08:34:47 AM [facility] Name Value Range Interpretation Code Description Data Anjelica rce(s) Supporting Document(s) Glucose [Mass/volume] in Capillary blood by Glucometer 162 mg/dL 70- 140 [facility] ID Date Data Source [id number] 11/24/2019 04:52:40 AM [facility] Value Range Interpretation Code Description Data Anjelica rce(s) Supporting Document(s) Glucose [Mass/volume] in Capillary blood by Glucometer 132 mg/dL 70- 140 [facility] ID Date Data Source [id number] 11/24/2019 05:08:17 AM [facility] Value Range Interpretation Code Description Data Anjelica rce(s) Supporting Document(s) Leukocytes [#/volume] in Blood by Automated count 7.9 10*3/uL 4-10 [facility] Erythrocytes [#/volume] in Blood by Automated count 3.11 10*6/uL 4.1- 5.3 L [facility] Hemoglobin [Mass/volume] in Blood 9.1 g/dL 11.5-15.5 L [facility] Hematocrit [Volume Fraction] of Blood by Automated count 27.9 % 3 6-45 L [facility] Erythrocyte mean corpuscular volume [Entitic volume] by Auto mated count 89.7 fL 80-96 [facility] Erythrocyte mean corpuscular hemoglobin [Entitic mass] by Automated count 29.2 pg 27-33 [facility] Erythrocyte mean corpuscular hemoglobin concentration [Mass/volume] by Automated count 32.6 g/dL 32.0-36.0 [facility] width [Ratio] by Automated count 18.1 % 11.5-14.5 [facility] Platelets [#/volume] in Blood by Automated count 381 10*3/uL 150-400 [facility] Differential cell count method - Blood [facility] Neutrophils/100 leukocytes in Blood by Automated count 56 % [facility] Lymphocytes/100 leukocytes in Blood by Automated count 32 % [facility] Monocytes/100 leukocytes in Blood by Automated count 8 % [facility] Eosinophils/100 leukocytes in Blood by Automated count 3 % [facility] Basophils/100 leukocytes in Blood by Automated count 1 % [facility] Neutrophils [#/volume] in Blood by Automated count 4.46 10*3/uL 1.8-7 .0 [facility] Lymphocytes [#/volume] in Blood by Automated count 2.54 10*3/uL 1.2-4 .0 [facility] Monocytes [#/volume] in Blood by Automated count 0.60 10*3/uL 0-0.8 [facility] Eosinophils [#/volume] in Blood by Automated count 0.25 10*3/uL 0-0.5 [facility] Basophils [#/volume] in Blood by Automated count 0.09 10*3/uL 0-0.2 [facility] Nucleated erythrocytes/100 leukocytes [Ratio] in Blood by Automated count 0 /100{WBCs} 0-0 [facility] ID Date Data Source [id number] 11/24/2019 05:30:40 AM [facility] Name Value Range Interpretation Code Description Data Anjelica rce(s) Supporting Document(s) Bicarbonate [Moles/volume] in Serum 42 mmol/L 22-29 [facility] Results called to and read back by ANGELIQUE YUSUF RN ON 9F AT [phone] BY [id number] Chloride [Moles/volume] in Serum or Plasma 104 mmol/L 98-107 [facility] Creatinine [Mass/volume] in Serum or Plasma 0.78 mg/dL 0.50-0.90 [facility] Glucose [Mass/volume] in Serum or Plasma 145 mg/dL 70-140 [facility] Potassium [Moles/volume] in Serum or Plasma 4.8 mmol/L 3.4-5.1 [facility] Sodium [Moles/volume] in Serum or Plasma 154 mmol/L 136-145 [facility] Urea nitrogen [Mass/volume] in Serum or Plasma 26 mg/dL 6-20 [facility] Anion gap 3 in Serum or Plasma 9 mmol/L 8-15 [facility] Osmolality of Serum or Plasma by calculation 325 mosm/kg 275-300 [facility] Creatinine/Urea nitrogen [Mass Ratio] in Serum or Plasma 33 [facility] Calcium [Mass/volume] in Serum or Plasma 9.9 mg/dL 8.6-10.0 [facility] Glomerular filtration rate/1.73 sq M pre dicted among non-blacks [Volume Rate/Area] in Serum or Plasma by Creatinine-based formula (MDRD) >6 0 [facility] Glomerular filtration rate/1.73 sq M pre dicted among blacks [Volume Rate/Area] in Serum or Plasma by Creatinine-based formula (MDRD) >60 [facility] ID Date Data Source [id number] [facility] Interpret[facility] Code Description Data Anjelica rce(s) Supporting Document(s) Glucose [Mass/volume] in Capillary blood by Glucometer 178 mg/dL 70- 140 [facility] ID Date Data Source [id number] 11/23/2019 08:24:16 PM [facility] Value Range Interpretation Code Description Data Anjelica rce(s) Supporting Document(s) Glucose [Mass/volume] in Capillary blood by Glucometer 160 mg/dL 70- 140 [facility] ID Date Data Source [id number] 11/23/2019 05:00:56 PM [facility] Value Range Interpretation Code Description Data Anjelica rce(s) Supporting Document(s) Glucose [Mass/volume] in Capillary blood by Glucometer 170 mg/dL 70- 140 [facility] ID Date Data Source [id number] 11/23/2019 12:41:15 PM [facility] Value Range Interpretation Code Description Data Anjelica rce(s) Supporting Document(s) Glucose [Mass/volume] in Capillary blood by Glucometer 197 mg/dL 70- 140 [facility] ID Date Data Source [id number] 11/23/2019 11:52:25 AM [facility] Value Range Interpretation Code Description Data Anjelica rce(s) Supporting Document(s) Troponin T.cardiac [Mass/volume] in Serum or Plasma 0.27 ng/mL <0.01 [facility] No Significant Change since last result called ID Date Data Source [id number] 11/23/2019 10:56:38 AM [facility] XR CHEST FRONTAL ONLY [id number] RESULTI nterpreted by:Albin uQach MDINDICATION: 53-year-old female evaluation of lung status.TECHNIQUE: 30 degrees portable AP view of the chest is obtained.COMPARISON: Radiograph dated 11/22/2019.FINDINGS: Lines and Devices: The right-sided PICC with the tip projecting over the right atrium. Enteric tube with the tip below the diaphragm out of [id number]..The chest wall and visualized osseous structures are grossly intact. The cardiomediastinal contours are within normal limits. There is no evidence of pleural effusion or pneumothorax. Bilateral perihilar streaky opacities. Left lower lobe opacity, favored to represent atelectasis. Otherwise no focal consolidation.IMPRESSION: There are bilateral perihilar streaky opacities which may represent central venous congestion. There is no definite alveolar pulmonary edema. Overall aeration of the lungs is improved.This document has been electronically signed by Rolan Mitchell MD on 11/23/2019 10:54 AM Name Value Range Interpretation Code Description Data Anjelica rce(s) Supporting Document(s) ID Date Data Source [id number] 11/23/2019 08:12:09 AM [facility] Name Value Range Interpretation Code Description Data Anjelica rce(s) Supporting Document(s) Glucose [Mass/volume] in Capillary blood by Glucometer 188 mg/dL 70- 140 [facility] ID Date Data Source [id number] 11/23/2019 06:20:04 AM [facility] Name Value Range Interpretation Code Description Data Anjelica rce(s) Supporting Document(s) Troponin T.cardiac [Mass/volume] in Serum or Plasma 0.25 ng/mL <0.01 [facility] No Significant Change since last result called ID Date Data Source [id number] 11/23/2019 05:25:49 AM [facility] Name Value Range Interpretation Code Description Data Anjelica rce(s) Supporting Document(s) Glucose [Mass/volume] in Capillary blood by Glucometer 182 mg/dL 70- 140 [facility] ID Date Data Source [id number] 11/23/2019 02:11:07 AM [facility] Name Value Range Interpretation Code Description Data Anjelica rce(s) Supporting Document(s) pH of Arterial blood 7.51 7.38-7.44 H [facility] Carbon dioxide [Partial pressure] in Arterial blood 54 mm[Hg] 35-40 [facility] Oxygen [Partial pressure] in Arterial blood 113 mmHg 95-100 [facility] Oxygen saturation in Arterial blood 99 % 94-100 [facility] Base excess in Arterial blood by calculation 17 [facility] Carbon dioxide, total [Moles/volume] in Arterial blood 45 mmol/L [facility] Oxygen/Inspired gas setting [Volume Fraction] Ventilator [facility] ID Date Data Source [id number] 11/23/2019 01:29:06 AM [facility] Name Value Range Interpretation Code Description Data Anjelica rce(s) Supporting Document(s) Glucose [Mass/volume] in Capillary blood by Glucometer 187 mg/dL 70- 140 [facility] ID Date Data Source [id number] 11/23/2019 12:59:15 AM [facility] Name Value Range Interpretation Code Description Data Anjelica rce(s) Supporting Document(s) Leukocytes [#/volume] in Blood by Automated count 9.1 10*3/uL 4-10 [facility] Erythrocytes [#/volume] in Blood by Automated count 3.16 10*6/uL 4.1- 5.3 L [facility] Hemoglobin [Mass/volume] in Blood 9.0 g/dL 11.5-15.5 [facility] Hematocrit [Volume Fraction] of Blood by Automated count 28.4 % 3 6-45 L [facility] Erythrocyte mean corpuscular volume [Entitic volume] by Auto mated count 89.9 fL 80-96 [facility] Erythrocyte mean corpuscular hemoglobin [Entitic mass] by Automated count 28.6 pg 27-33 [facility] Erythrocyte mean corpuscular hemoglobin concentration [Mass/volume] by Automated count 31.8 g/dL 32.0-36.0 [facility] width [Ratio] by Automated count 18.4 % 11.5-14.5 [facility] Platelets [#/volume] in Blood by Automated count 406 10*3/uL 150-400 [facility] Differential cell count method - Blood [facility] Neutrophils/100 leukocytes in Blood by Automated count 67 % [facility] Lymphocytes/100 leukocytes in Blood by Automated count 22 % [facility] Monocytes/100 leukocytes in Blood by Automated count 7 % [facility] Eosinophils/100 leukocytes in Blood by Automated count 3 % [facility] Basophils/100 leukocytes in Blood by Automated count 1 % [facility] Neutrophils [#/volume] in Blood by Automated count 6.12 10*3/uL 1.8-7 .0 [facility] Lymphocytes [#/volume] in Blood by Automated count 2.03 10*3/uL 1.2-4 .0 [facility] Monocytes [#/volume] in Blood by Automated count 0.64 10*3/uL 0-0.8 [facility] Eosinophils [#/volume] in Blood by Automated count 0.26 10*3/uL 0-0.5 [facility] Basophils [#/volume] in Blood by Automated count 0.06 10*3/uL 0-0.2 [facility] Nucleated erythrocytes/100 leukocytes [Ratio] in Blood by Automated count 0 /100{WBCs} 0-0 [facility] ID Date Data Source [id number] 11/23/2019 01:38:10 AM [facility] Name Value Range Interpretation Code Description Data Anjelica rce(s) Supporting Document(s) Bicarbonate [Moles/volume] in Serum 41 mmol/L 22-29 [facility] Results called to and read back by TALHA JORGENSEN RN 9F [phone] [id number] BY [id number] Chloride [Moles/volume] in Serum or Plasma 102 mmol/L 98-107 [facility] Creatinine [Mass/volume] in Serum or Plasma 0.77 mg/dL 0.50-0.90 [facility] Glucose [Mass/volume] in Serum or Plasma 196 mg/dL 70-140 [facility] Potassium [Moles/volume] in Serum or Plasma 3.8 mmol/L 3.4-5.1 [facility] Sodium [Moles/volume] in Serum or Plasma 153 mmol/L 136-145 [facility] Urea nitrogen [Mass/volume] in Serum or Plasma 28 mg/dL 6-20 [facility] Anion gap 3 in Serum or Plasma 10 mmol/L 8-15 [facility] Osmolality of Serum or Plasma by calculation 327 mosm/kg 275-300 [facility] Creatinine/Urea nitrogen [Mass Ratio] in Serum or Plasma 36 [facility] Calcium [Mass/volume] in Serum or Plasma 9.4 mg/dL 8.6-10.0 [facility] Glomerular filtration rate/1.73 sq M pre dicted among non-blacks [Volume Rate/Area] in Serum or Plasma by Creatinine-based formula (MDRD) >6 0 [facility] Glomerular filtration rate/1.73 sq M pre dicted among blacks [Volume Rate/Area] in Serum or Plasma by Creatinine-based formula (MDRD) >60 [facility] ID Date Data Source [id number] 11/23/2019 02:04:23 AM [facility] Name Value Range Interpretation Code Description Data Anjelica rce(s) Supporting Document(s) Troponin T.cardiac [Mass/volume] in Serum or Plasma 0.28 ng/mL <0.01 [facility] Results called to and read back by TALHA JORGENSEN RN ON 9F AT [phone] BY [id number] ID Date Data Source [id number] 11/23/2019 03:53:02 AM [facility] Name Value Range Interpretation Code Description Data Anjelica rce(s) Supporting Document(s) Magnesium [Mass/volume] in Serum or Plasma 2.1 mg/dL 1.6-2.6 [facility] ID Date Data Source [id number] 11/23/2019 03:53:02 AM [facility] Value Range Interpretation Code Description Data Anjelica rce(s) Supporting Document(s) Phosphate [Mass/volume] in Serum or Plasma 2.3 mg/dL 2.5-4.5 L [facility] ID Date Data Source [id number] 11/22/2019 09:25:24 PM [facility] Name Value Range Interpretation Code Description Data Anjelica rce(s) Supporting Document(s) Glucose [Mass/volume] in Capillary blood by Glucometer 184 mg/dL 70- 140 [facility] ID Date Data Source [id number] 11/22/2019 04:34:53 PM [facility] XR CHEST FRONTAL ONLY [id number] RESULTI nterpreted by:WillianStephen Pinedo MDINDICATION: Evaluate lung volumes.TECHNIQUE: Portable AP radiograph of the chest at 30 degrees.COMPARISON: 11/21/2019 chest radiographs.FINDINGS:The right subclavian central venous catheter tip overlies the proximal right atrium.The enteric tube projects over the midline of the mediastinum and the medial aspect of the left upper quadrant. However, the distal tip is not visible on this projection.There is stable mild osteopenia and mild to moderate degenerative bony change throughout study. The remainder of chest umbilicus thorax are unchanged and normal. The visualized cardiomediastinal contour is unchanged and grossly normal.There is increased moderate diffuse hazy opacity of the right lung and decreasing moderate to marked patchy left perihilar, midlung and basilar airspace opacity.The upper left lung is clear and there is no evidence of pleural disease.IMPRESSION:1. There is increasing moderate diffuse right atelectasis versus pneumonia and decreasing moderate to marked patchy left perihilar, midlung and basilar atelectasis versus pneumonia.2. The central catheter and feeding tube are stable.3. There is stable mild osteopenia and mild to moderate degenerative bony change throughout study.4. The remainder the chest is grossly unchanged.This document has been electronically signed by Willian Luo MD on 11/22/2019 4:32 PM Name Value Range Interpretation Code Description Data Anjelica rce(s) Supporting Document(s) ID Date Data Source [id number] 11/22/2019 04:36:35 PM [facility] Value Range Interpretation Code Description Data Anjelica rce(s) Supporting Document(s) Glucose [Mass/volume] in Capillary blood by Glucometer 142 mg/dL 70- 140 [facility] ID Date Data Source [id number] [facility] Interpret[facility] Code Description Data Anjelica rce(s) Supporting Document(s) Glucose [Mass/volume] in Capillary blood by Glucometer 248 mg/dL 70- 140 [facility] ID Date Data Source [id number] [facility]2019 [facility] Interpret[facility] Code Description Data Anjelica rce(s) Supporting Document(s) Glucose [Mass/volume] in Capillary blood by Glucometer 133 mg/dL 70- 140 [facility] ID Date Data Source [id number] 11/22/2019 06:32:18 AM [facility] Name Value Range Interpretation Code Description Data Anjelica rce(s) Supporting Document(s) pH of Arterial blood 7.47 7.38-7.44 H [facility] Carbon dioxide [Partial pressure] in Arterial blood 58 mm[Hg] 35-40 [facility] Oxygen [Partial pressure] in Arterial blood 189 mmHg 95-100 [facility] Oxygen saturation in Arterial blood 94-100 [facility] Base excess in Arterial blood by calculation 16 [facility] Carbon dioxide, total [Moles/volume] in Arterial blood 43 mmol/L [facility] Oxygen/Inspired gas setting [Volume Fraction] Ventilator [facility] ID Date Data Source [id number] 11/22/2019 05:34:36 AM [facility] Value Range Interpretation Code Description Data Anjelica rce(s) Supporting Document(s) Glucose [Mass/volume] in Capillary blood by Glucometer 191 mg/dL 70- 140 [facility] ID Date Data Source [id number] 11/22/2019 02:10:42 AM [facility] Value Range Interpretation Code Description Data Anjelica rce(s) Supporting Document(s) Leukocytes [#/volume] in Blood by Automated count 10.1 10*3/uL 4-10 [facility] Erythrocytes [#/volume] in Blood by Automated count 3.15 10*6/uL 4.1- 5.3 [facility] Hemoglobin [Mass/volume] in Blood 9.1 g/dL 11.5-15.5 [facility] Hematocrit [Volume Fraction] of Blood by Automated count 28.5 % 3 6-45 [facility] Erythrocyte mean corpuscular volume [Entitic volume] by Auto mated count 90.4 fL 80-96 [facility] Erythrocyte mean corpuscular hemoglobin [Entitic mass] by Automated count 28.8 pg 27-33 [facility] Erythrocyte mean corpuscular hemoglobin concentration [Mass/volume] by Automated count 31.8 g/dL 32.0-36.0 [facility] width [Ratio] by Automated count 17.9 % 11.5-14.5 H [facility] Platelets [#/volume] in Blood by Automated count 427 10*3/uL 150-400 H [facility] Differential cell count method - Blood [facility] Neutrophils/100 leukocytes in Blood by Automated count 70 % [facility] Lymphocytes/100 leukocytes in Blood by Automated count 19 % [facility] Monocytes/100 leukocytes in Blood by Automated count 6 % [facility] Eosinophils/100 leukocytes in Blood by Automated count 4 % [facility] Basophils/100 leukocytes in Blood by Automated count 1 % [facility] Neutrophils [#/volume] in Blood by Automated count 7.24 10*3/uL 1.8-7 .0 H [facility] Lymphocytes [#/volume] in Blood by Automated count 1.90 10*3/uL 1.2-4 .0 [facility] Monocytes [#/volume] in Blood by Automated count 0.59 10*3/uL 0-0.8 [facility] Eosinophils [#/volume] in Blood by Automated count 0.35 10*3/uL 0-0.5 [facility] Basophils [#/volume] in Blood by Automated count 0.05 10*3/uL 0-0.2 [facility] Nucleated erythrocytes/100 leukocytes [Ratio] in Blood by Automated count 0 /100{WBCs} 0-0 [facility] ID Date Data Source [id number] 11/22/2019 02:28:43 AM EDT [facility] Name Value Range Interpretation Code Description Data Anjelica rce(s) Supporting Document(s) Bicarbonate [Moles/volume] in Serum 40 mmol/L 22-29 [facility] Chloride [Moles/volume] in Serum or Plasma 102 mmol/L 98-107 [facility] Creatinine [Mass/volume] in Serum or Plasma 0.88 mg/dL 0.50-0.90 [facility] Glucose [Mass/volume] in Serum or Plasma 246 mg/dL 70-140 [facility] Potassium [Moles/volume] in Serum or Plasma 4.1 mmol/L 3.4-5.1 [facility] Sodium [Moles/volume] in Serum or Plasma 151 mmol/L 136-145 H [facility] Urea nitrogen [Mass/volume] in Serum or Plasma 34 mg/dL 6-20 [facility] Anion gap 3 in Serum or Plasma 9 mmol/L 8-15 [facility] Osmolality of Serum or Plasma by calculation 327 mosm/kg 275-300 [facility] Creatinine/Urea nitrogen [Mass Ratio] in Serum or Plasma 38 [facility] Calcium [Mass/volume] in Serum or Plasma 9.2 mg/dL 8.6-10.0 [facility] Glomerular filtration rate/1.73 sq M pre dicted among non-blacks [Volume Rate/Area] in Serum or Plasma by Creatinine-based formula (MDRD) 74 mL/min/1.73m2 >60 [facility] Glomerular filtration rate/1.73 sq M pre dicted among blacks [Volume Rate/Area] in Serum or Plasma by Creatinine-based formula (MDRD) 86 mL/min/1.73m2 >60 [facility] ID Date Data Source [id number] 11/22/2019 02:28:43 AM [facility] Value Range Interpretation Code Description Data Anjelica rce(s) Supporting Document(s) Magnesium [Mass/volume] in Serum or Plasma 2.2 mg/dL 1.6-2.6 [facility] ID Date Data Source [id number] 11/22/2019 02:28:43 AM [facility] Value Range Interpretation Code Description Data Anjelica rce(s) Supporting Document(s) Phosphate [Mass/volume] in Serum or Plasma 3.2 mg/dL 2.5-4.5 [facility] ID Date Data Source [id number] 11/22/2019 01:27:48 AM [facility] Value Range Interpretation Code Description Data Anjelica rce(s) Supporting Document(s) Glucose [Mass/volume] in Capillary blood by Glucometer 212 mg/dL 70- 140 [facility] ID Date Data Source [id number] 11/21/2019 09:00:28 PM [facility] Value Range Interpretation Code Description Data Anjelica rce(s) Supporting Document(s) Glucose [Mass/volume] in Capillary blood by Glucometer 132 mg/dL 70- 140 [facility] ID Date Data Source [id number] 11/21/2019 05:24:00 PM [facility] Value Range Interpretation Code Description Data Anjelica rce(s) Supporting Document(s) Glucose [Mass/volume] in Capillary blood by Glucometer 169 mg/dL 70- 140 [facility] ID Date Data Source [id number] 11/21/2019 01:38:00 PM [facility] Value Range Interpretation Code Description Data Anjelica rce(s) Supporting Document(s) Prothrombin time (PT) 14.6 s 12.5-14.9 [facility] INR in Platelet poor plasma by Coagulation assay 1.12 [facility] Routine intensity oral anticoagulation I NR is typically 2.0-3.0. Target INR must be clinically individualized. ID Date Data Source [id number] 11/21/2019 11:44:13 AM [facility] Value Range Interpretation Code Description Data Anjelica rce(s) Supporting Document(s) Glucose [Mass/volume] in Capillary blood by Glucometer 137 mg/dL 70- 140 [facility] ID Date Data Source [id number] 11/[facility]2019 [facility] Code Description Data Anjelica rce(s) Supporting Document(s) Glucose [Mass/volume] in Capillary blood by Glucometer 111 mg/dL 70- 140 [facility] ID Date Data Source [id number] 11/21/2019 07:23:29 AM T [facility] Value Range Interpretation Code Description Data Anjelica rce(s) Supporting Document(s) pH of Arterial blood 7.41 7.38-7.44 [facility] Carbon dioxide [Partial pressure] in Arterial blood 67 mm[Hg] 35-40 [facility] Called to and read back byRN [id number] at 07 23 by 1519 Oxygen [Partial pressure] in Arterial blood 76 mmHg 95-100 L [facility] Oxygen saturation in Arterial blood 95 % 94-100 [facility] Base excess in Arterial blood by calculation 15 [facility] Carbon dioxide, total [Moles/volume] in Arterial blood 43 mmol/L [facility] Oxygen/Inspired gas setting [Volume Fraction] Ventilator [facility] ID Date Data Source [id number] 11/21/2019 05:09:44 AM [facility] Value Range Interpretation Code Description Data Anjelica rce(s) Supporting Document(s) Glucose [Mass/volume] in Capillary blood by Glucometer 121 mg/dL 70- 140 [facility] ID Date Data Source [id number] 11/21/2019 01:39:27 AM [facility] Value Range Interpretation Code Description Data Anjelica rce(s) Supporting Document(s) Leukocytes [#/volume] in Blood by Automated count 11.0 10*3/uL 4-10 H [facility] Erythrocytes [#/volume] in Blood by Automated count 2.97 10*6/uL 4.1- 5.3 L [facility] Hemoglobin [Mass/volume] in Blood 8.5 g/dL 11.5-15.5 [facility] Hematocrit [Volume Fraction] of Blood by Automated count 26.7 % 3 6-45 L [facility] Erythrocyte mean corpuscular volume [Entitic volume] by Auto mated count 89.7 fL 80-96 [facility] Erythrocyte mean corpuscular hemoglobin [Entitic mass] by Automated count 28.5 pg 27-33 [facility] Erythrocyte mean corpuscular hemoglobin concentration [Mass/volume] by Automated count 31.8 g/dL 32.0-36.0 [facility] width [Ratio] by Automated count 17.9 % 11.5-14.5 H [facility] Platelets [#/volume] in Blood by Automated count 417 10*3/uL 150-400 [facility] Differential cell count method - Blood [facility] Neutrophils/100 leukocytes in Blood by Automated count 69 % [facility] [facility] Lymphocytes/100 leukocytes in Blood by Automated count 22 % [facility] Monocytes/100 leukocytes in Blood by Automated count 6 % [facility] Eosinophils/100 leukocytes in Blood by Automated count 2 % [facility] Basophils/100 leukocytes in Blood by Automated count 1 % [facility] Neutrophils [#/volume] in Blood by Automated count 7.67 10*3/uL 1.8-7 .0 H [facility] Lymphocytes [#/volume] in Blood by Automated count 2.38 10*3/uL 1.2-4 .0 [facility] Monocytes [#/volume] in Blood by Automated count 0.66 10*3/uL 0-0.8 [facility] Eosinophils [#/volume] in Blood by Automated count 0.26 10*3/uL 0-0.5 [facility] Basophils [#/volume] in Blood by Automated count 0.05 10*3/uL 0-0.2 [facility] Nucleated erythrocytes/100 leukocytes [Ratio] in Blood by Automated count 0 /100{WBCs} 0-0 [facility] ID Date Data Source [id number] 11/21/2019 02:07:33 AM EDT [facility] Name Value Range Interpretation Code Description Data Anjelica rce(s) Supporting Document(s) Bicarbonate [Moles/volume] in Serum 40 mmol/L 22-29 H [facility] Chloride [Moles/volume] in Serum or Plasma 102 mmol/L 98-107 [facility] Creatinine [Mass/volume] in Serum or Plasma 0.92 mg/dL 0.50-0.90 H [facility] Glucose [Mass/volume] in Serum or Plasma 146 mg/dL 70-140 H [facility] Potassium [Moles/volume] in Serum or Plasma 4.1 mmol/L 3.4-5.1 [facility] Sodium [Moles/volume] in Serum or Plasma 149 mmol/L 136-145 H [facility] Urea nitrogen [Mass/volume] in Serum or Plasma 36 mg/dL 6-20 H [facility] Anion gap 3 in Serum or Plasma 6 mmol/L 8-15 L [facility] Osmolality of Serum or Plasma by calculation 319 mosm/kg 275-300 H [facility] Creatinine/Urea nitrogen [Mass Ratio] in Serum or Plasma 39 [facility]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 [facility] Value Range Interpretation Code Description Data Anjelica rce(s) Supporting Document(s) Phosphate [Mass/volume] in Serum or Plasma 4.5 mg/dL 2.5-4.5 [facility] ID Date Data Source [id number] 11/19/2019 12:24:27 AM [facility] Value Range Interpretation Code Description Data Anjelica rce(s) Supporting Document(s) Glucose [Mass/volume] in Capillary blood by Glucometer 190 mg/dL 70- 140 H [facility] ID Date Data Source [id number] 11/18/2019 09:05:52 PM [facility] Value Range Interpretation Code Description Data Anjelica rce(s) Supporting Document(s) Glucose [Mass/volume] in Capillary blood by Glucometer 241 mg/dL 70- 140 H [facility] ID Date Data Source [id number] 11/18/2019 04:29:23 PM [facility] Value Range Interpretation Code Description Data Anjelica rce(s) Supporting Document(s) [facility] [id number] lbm [file] [id number]+[id number] ID Date Data Source [id number] [facility] Description Data Anjelica rce(s) Supporting Document(s) Glucose [Mass/volume] in Capillary blood by Glucometer 236 mg/dL 70- 140 H [facility] ID Date Data Source [id number] [facility] Code Description Data Anjelica rce(s) Supporting Document(s) Glucose [Mass/volume] in Capillary blood by Glucometer 230 mg/dL 70- 140 H [facility] ID Date Data Source [id number] [facility] Code Description Data Anjelica rce(s) Supporting Document(s) Glucose [Mass/volume] in Capillary blood by Glucometer 123 mg/dL 70- 140 [facility] ID Date Data Source [id number] [facility] Code Description Data Anjelica rce(s) Supporting Document(s) Glucose [Mass/volume] in Capillary blood by Glucometer 251 mg/dL 70- 140 H [facility] ID Date Data Source [id number] 11/18/2019 04:55:09 AM T [facility] Name Value Range Interpretation Code Description Data Anjelica rce(s) Supporting Document(s) Leukocytes [#/volume] in Blood by Automated count 12.7 10*3/uL 4-10 H [facility] Erythrocytes [#/volume] in Blood by Automated count 3.13 10*6/uL 4.1- 5.3 L [facility] Hemoglobin [Mass/volume] in Blood 8.8 g/dL 11.5-15.5 L [facility] Hematocrit [Volume Fraction] of Blood by Automated count 27.4 % 3 6-45 L [facility] Erythrocyte mean corpuscular volume [Entitic volume] by Auto mated count 87.7 fL 80-96 [facility] Erythrocyte mean corpuscular hemoglobin [Entitic mass] by Automated count 28.3 pg 27-33 [facility] Erythrocyte mean corpuscular hemoglobin concentration [Mass/volume] by Automated count 32.2 g/dL 32.0-36.0 [facility] width [Ratio] by Automated count 16.6 % 11.5-14.5 H [facility] Platelets [#/volume] in Blood by Automated count 485 10*3/uL 150-400 H [facility] Differential cell count method - Blood [facility] Neutrophils/100 leukocytes in Blood by Automated count 79 % [facility] Lymphocytes/100 leukocytes in Blood by Automated count 13 % [facility] Monocytes/100 leukocytes in Blood by Automated count 8 % [facility] Eosinophils/100 leukocytes in Blood by Automated count 0 % [facility] Basophils/100 leukocytes in Blood by Automated count 0 % [facility] Neutrophils [#/volume] in Blood by Automated count 10.04 10*3/uL 1.8- 7.0 H [facility] Lymphocytes [#/volume] in Blood by Automated count 1.60 10*3/uL 1.2-4 .0 [facility] Monocytes [#/volume] in Blood by Automated count 1.01 10*3/uL 0-0.8 H [facility] Eosinophils [#/volume] in Blood by Automated count 0.01 10*3/uL 0-0.5 [facility] Basophils [#/volume] in Blood by Automated count 0.02 10*3/uL 0-0.2 [facility] Nucleated erythrocytes/100 leukocytes [Ratio] in Blood by Automated count 0 /100{WBCs} 0-0 [facility] ID Date Data Source [id number] 11/18/2019 05:13:23 AM [facility] Name Value Range Interpretation Code Description Data Anjelica rce(s) Supporting Document(s) Magnesium [Mass/volume] in Serum or Plasma 2.4 mg/dL 1.6-2.6 [facility] ID Date Data Source [id number] 11/18/2019 05:13:23 AM [facility] Name Value Range Interpretation Code Description Data Anjelica rce(s) Supporting Document(s) Phosphate [Mass/volume] in Serum or Plasma 3.8 mg/dL 2.5-4.5 [facility] ID Date Data Source [id number] 11/18/2019 08:16:24 AM [facility] Name Value Range Interpretation Code Description Data Anjelica rce(s) Supporting Document(s) Bicarbonate [Moles/volume] in Serum 32 mmol/L 22-29 H [facility] Chloride [Moles/volume] in Serum or Plasma 107 mmol/L 98-107 [facility] Creatinine [Mass/volume] in Serum or Plasma 0.76 mg/dL 0.50-0.90 [facility] Glucose [Mass/volume] in Serum or Plasma 251 mg/dL 70-140 H [facility] Potassium [Moles/volume] in Serum or Plasma 4.3 mmol/L 3.4-5.1 [facility] Sodium [Moles/volume] in Serum or Plasma 153 mmol/L 136-145 H [facility] Urea nitrogen [Mass/volume] in Serum or Plasma 39 mg/dL 6-20 H [facility] Anion gap 3 in Serum or Plasma 14 mmol/L 8-15 [facility] Osmolality of Serum or Plasma by calculation 334 mosm/kg 275-300 H [facility] Creatinine/Urea nitrogen [Mass Ratio] in Serum or Plasma 51 [facility] Calcium [Mass/volume] in Serum or Plasma 8.7 mg/dL 8.6-10.0 [facility] Glomerular filtration rate/1.73 sq M pre dicted among non-blacks [Volume Rate/Area] in Serum or Plasma by Creatinine-based formula (MDRD) >6 0 [facility] Glomerular filtration rate/1.73 sq M pre dicted among blacks [Volume Rate/Area] in Serum or Plasma by Creatinine-based formula (MDRD) >60 [facility] ID Date Data Source [id number] 11/18/2019 12:02:58 AM EDT [facility] Name Value Range Interpretation Code Description Data Anjelica rce(s) Supporting Document(s) Glucose [Mass/volume] in Capillary blood by Glucometer 138 mg/dL 70- 140 [facility] ID Date Data Source [id number] 11/17/2019 07:55:43 PM EDT [facility] Name Value Range Interpretation Code Description Data Anjelica rce(s) Supporting Document(s) Glucose [Mass/volume] in Capillary blood by Glucometer 141 mg/dL 70- 140 H [facility] ID Date Data Source [id number] 11/17/2019 05:38:54 PM EDT [facility] XR CHEST FRONTAL ONLY [id number] RESULTI nterpreted by:Maira Reyez MDINDICATION: Evaluate pulmonary status. TECHNIQUE: Semiupright AP Portable view of the chest.COMPARISON: Chest radiograph dated November 13, 2019. FINDINGS:Heart: The mediastinal and cardiac contours are unchanged.Pleura: Stable bilateral pleural effusions with associated lower lung atelectasis. No evidence of pneumothorax.Lungs: Linear opacities in the lung bases bilaterally likely relate to atelectasis, right greater than left.Bones: The visualized osseous structures are grossly unchanged.Other: There is an enteric tube passing below the diaphragm, however the tip and side port are not visualized. There is a right-sided central venous catheter terminating in the right atrium.IMPRESSION:Stable bilateral pleural effusions with associated lower lung atelectasis, right greater than left. This document has been electronically signed by Isrrael Castellano MD on 11/17/2019 5:36 PM Name Value Range Interpretation Code Description Data Anjelica rce(s) Supporting Document(s) ID Date Data Source [id number] 11/17/2019 04:50:50 PM [facility] Name Value Range Interpretation Code Description Data Anjelica rce(s) Supporting Document(s) Glucose [Mass/volume] in Capillary blood by Glucometer 105 mg/dL 70- 140 [facility] ID Date Data Source [id number] 11/17/2019 12:29:41 PM EDT [facility] Name Value Range Interpretation Code Description Data Anjelica rce(s) Supporting Document(s) Glucose [Mass/volume] in Capillary blood by Glucometer 87 mg/dL 70- 140 [facility] ID Date Data Source [id number] 11/17/2019 09:10:50 AM EDT [facility] Name Value Range Interpretation Code Description Data Anjelica rce(s) Supporting Document(s) Glucose [Mass/volume] in Capillary blood by Glucometer 128 mg/dL 70- 140 [facility] ID Date Data Source [id number] 11/17/2019 08:53:23 AM EDT [facility] Name Value Range Interpretation Code Description Data Anjelica rce(s) Supporting Document(s) [facility] [id number]FuECe jb2 [file] nUgnMogMIpPIJLKILCKbCPsAdXEs+FiOUIgUIkbEiF Gf2GAadm467VytFVcZHJZReNNSL5H3hMb5Xg0CWxdb6nW01vSgWwchb7Dy2EuUCKfdU5TryOMlz7y/Wt hPSfKmSHDKWxo9hnMu/J/O8wyeB+nJ3pB8VvDkEKtvYXDIXzJ63HxLLdGlY/XnqFOoOqghu1HSllJDS9 PI2Zi03YxcQ07hXs3EfMvJLs57fccdCw200MquM66l j0qIFt46pujj1nbNb81oOKwudUzBOBiezcLRQwhzrZjMU1vw7DN7JU7MRr5Z19SY+AGpCmjeKophp2N3 JhLRxVVkkZRbNntdzWBtRtsQSpYIPUQJ6DpUgIHXF9GwjuLQ0a6pANEYB6tZ8GEghkN2IOIhhT/FxMcS cSbnYzkOh/VvgJ9UepamKgfHw1XEkt8WoqZLppqkD/ UQngw+qz2MO37lm5vd92tyKHeJqQmVpAOdmT9zkbmwDo93E5lxcls4cJ3fQQTkvQlKQy5IiC/g4K57Nr BNBbXBX2BRFXFw8xprTVlR9+Ntv6Ah9cX9ggpQkSMe15W9XUQSt8qtwTzAyqiNpT/y6w6s7AzGWopx65 Mx16D8NKAX7GrB5vMDFGZ1Kv0S7UyX9rVC30S5LUYs io/gskeV44qjqKaTKe97vmCYN8zXt2GeD1NqQ7gPoOlNvDtGls7RbeZazYxxMfeC1zB+YR7jqmT7UPcq n/Ur+Edma4uULhl7mOJ0nkj7+6yDt8/3evvF0xV/6EbHG1JEsrxU+pq9wG/dKbxJtRC4vkz0+6yXSqQS vNFbtV5oS8BxgHdLP0qDSkBEn70dRdVQOWm+xBAMvn U7pMn9CRcsGD+q+EdDuxuzL9gW4yP4uz7pTHMjyjSUpVKoPSU4eQSjOy0XeSheLDhTGUdE3gNVBuP+ln W0iPpWtzJ3CILULb8VXiZNoPFFzSySkmA8uadNnEeh5hc4IpzouS7w7tLm9/kI/XHUxMdyekdx5+g3xZ 7iOsW1vr4rhMnRm+U1gia9nQC+lvPoW+Y3Wo+4s8ZO sdmaZvSS3gQz80s0Vge5dBSAe8MAENKxDS6JVOP55o4CBqvu021ykLA2r68sApfbHuLFfcu5Wprfq2Wm O+9L9vQRC7f6VJSz0E38s/hYzqTasSerd+zRFB/XjSL38yZGtkI3mkgA6SFYT0TJ4X5GR8botXPnl5hZ Cfg6rLB3x8vsM/WCuBFSzJBbrSrqRBhbMm2IS4oLIq GG+xmNR+aTsNewGdl3VwgiAq5FwxH0SbaCCe0O5tTHahIh6SDGHsmRBzGua+jH4JUnabu88dYFjjys0x hHXRzrqItjHXVxrHN/Yuf+xIHshX3PmobITGYuNFTvQXgic0NuV2G7gSbozG/Ncm5uelGpmp4ci5f5RS 98bTQ8By/WBdTbqDk4ui8AgbFwPs8BGIbhjJ6XX48+ NQy3nefxXBrA3LIxzr8mZiru4aTvQ1g/9SLE16CMWJRVWWVHQDVXvDSbknteZxUYyO65XGVJA9lYcwEG owuMB0ymSN2TX7YLQ/OdB/OdB/OdB/OdDx/LEYhgz/GpqcBocDkIAbT4VfS5F+Y7D+Q7f/93P/v85rks vi3o8+/e/qepmsump00+v94+ky4kG7z6NafJ/eq7T5 8/fvqHt68+jq56Y84+3Smq1KE/+UEEF0sQqbijvX8S327qC8mjM/6PX3/7E9+++VJ/KyFTeou5qM9ucx z997/+9l/viy1s0d2/+Jkf8Mdli/r6yw/ydK80817/8/HT919//pef7J+/vb19+u7Xn7/+9uPbp4+fP3 425OtchslSbws08H76e1n9ShcAM/Jeup3gu57/+/zh y1/5s1qnQl984Bp/6fn8D8c/9puPP//89rNff/vVNx/cwdsky3at/tEdI9435+X/+Tf+pZwb+af72xgi 5g260fdoc/Xxy69//vWXb5/f/vnDbz6+tdyRz315+uWHb77+/GGU2155WJ/O5Q/t06rugMujz//41ds/ ff7yb/ewfpFy565zkF795f//jZ/dr+/9s3/+xcdv37 787pe/+vDpdch/fj3c+x/mqug120AeMHGrv4g8p98O9mHg23C99yUAM7/fPt2P5+vv337+4ijINWdmY1 9NkfvnX/75T//2h7/88fe/e/sf//X2m6+/+ykEu62vL4lkT7+//Ye1dX42+/XHb97+9b+V9a9///bnP7 2Nn66f+rFlD3t60yKWwbahRh7do734B2e7b3/86X/w hFpEkAr7et/4G+Q6uQzhG6/XL/5fgO5+PeD+x+fuJ9Rk4iqB4/am2FGBx0YpKqg7XXFT6dGjcQq5xstj TqFz/+DT7//t93/5q9qQW64eSr05+F6CuvY9qc3r/hw3L06r/iv7+Kf5s6Eetn1b/tnfvafU9BXmuMD0 gK3D6TJSzB2k8N2+/6f//Me3v/zwn79/d/jXh/hNZX nuH/9jG4643YJU9s789DO+6tPbH/70n7//y//9w7//tgSwYs7wf40zry175Rq9g0/fv/3uf78u/g9//t OPj+3W3G18nV5oeq0s65//5iLjyn1+bnt3riPYg////tuA4xDv1u4QI9ha8d/ZYzJLjoFZmvP8wi4n89 C/+smnn3x+++H/+f1//PXLk4+1/+TnH3/7x1oQhaq4 e43R//rLv/18d827ezMNw//HH/163CEh0/Avf/jfv/3hP/7ww5/++gyWH2m812//+MW+C0k62Tmqrb/5 82+/LJG76apaaR4r/+Dz73/7v/70h9++QzPC66Z5rml/+r4vfpd9//Uun2Pcjs1+//Db//Vfv/3hL7/7 ww9/mMZ0LEaha/vlLz9++/n7L/ji3h/Q//+w0V0Mmc 0zW//wP3//Vt7+/P5feVUrbP2AyJmal8rI2BIbEc40+JOI9TGy09/Ovt99+ykzn2vgwCfSAO2a+Q9ffv dtu967/pRjbvj2rJaX1r1/OcYsOokivgSbzBQwXO3ZRX2ea3MjXcR9QPLgu2OrWDcsMIy3xWFaXYxmtq Tcj8CdtfvqB5Oxr5UtIdMoYMSsTcPiXcq9RZAnUuD3 qOCzMnNoUDBkE1QvYULcFqP7IiWtNZJMKB0OCMJryfQzDiDzHOY+OpIfFC9qvunsXEGls0HdJZccCNbc ARGfF9L8oXfjQFKgU4QqrE36VOBfJ4AfctE2UES3NVDpSrGaWQTavVOjEYVjCZG+StZyFF7hnketCCKb e6IcQMhkDNE0pA9qTQeFKUCLDUiLMUppPuE1x99din HOBFMhCLYnKO7QwfMrjOhgipKodISgDAB0JvQjKIA6SYytGPQzOLOPRVAfTRNcPJQaZSQiT4HqgBxgCB uAIUCIEFsEIRebWaIpe3Q2PDOnjxGGT2ININFpCCHSSOVLKsQeKdC5CHd2WWacW2I2DqawS9GgJQ7UU9 WmYADcLNEJWRXbyzDnTF7UtfDpyT9xPEfYJDKAZVlW PTifOrS7f08hsnFVNJQgTBSkULbjQLOcRDMcEKDfEHOnWUVuKGAwZCZyND2ZR0KxXKEjWXLBDBK0b2Sl CVIuelatoistNw9jijJbXes+EkngMOYng5HqVEruH7M6oRPxY0OzS2HoSZ5LcBKhPUbrMEWiYGShYLUr D063diXhMK3+TN8ge0PaZiplBNRZOJErRIReJIBqCA F4TlDdQRTpGJSzOCChAmN6YzOeSeTVTFTqDMZ3EPs0FpKkDDRlITBtGEpxOQAcFCmsEvA5UGKrIFJiXA 6pStYbUUKtDuV9JDKhJUNtDODjywBHTJSvYOCaDLYmQNP5NQEmRVWoJKjeUVYoPMSnGMJ8TXWkXEQcNC 8gWiIjZYKaPQRuAkvgDWKwFQGjxyMGKQZuUYUrQLX9 YgBfAOOvQHEcYUywLYSiLUAbXys1TRQkQEWgKR5cMgInNETgRHT9NBrnYHLmSSJbshVDUMSgFWXcYJZp KqSvXIVtHPGcNSyiEEVtHIXtNrUjTAAbTLQlIK2zViDpCCDxRPO0IADaLZEfMMWyfoLWBQLeWBEvPJm0 NEUzRAOwZPEmUXvaDSQbWWOcAWV0XBRuXDJuCT6hIt LoHWVrJGXjXSHcLOBhEXOwqjZHIBPeXITwKWV2QZSaEKGkGJSpRKfnBSJyXIKcHue7SCNxRKYaRL1nPg ZdPASnLYV8DSWoJCFaNHNktvFXULQxAPH0GAN1VcUtGIBxKSOwNOsuZYCzWBNuQsB1KRMiDIXkVR4lGe QcWITfIZA7OrCyDFBeBHShjnCZIEYgGVZjYIJ0YhPg OWFdLOCpNMcjDIZlAYKpAUQdQEY8WNB2JAGkCyZbLBxrUCURBUwLA2JdqbWbZrSMP4tfGh6hQjOwRELC C2Kxp8OdXILhBEUZZu6+KeQ8IKI5nHEcWkk9CJMtPSvfURAPAo== ID Date Data Source [id number] 11/17/2019 06:22:26 AM [facility] Name Value Range Interpretation Code Description Data Anjelica rce(s) Supporting Document(s) Potassium [Moles/volume] in Serum or Plasma 4.4 mmol/L 3.4-5.1 [facility] ID Date Data Source [id number] 11/17/2019 04:27:59 AM [facility] Value Range Interpretation Code Description Data Anjelica rce(s) Supporting Document(s) Glucose [Mass/volume] in Capillary blood by Glucometer 104 mg/dL 70- 140 [facility] ID Date Data Source [id number] 11/17/2019 01:42:35 AM [facility] Value Range Interpretation Code Description Data Anjelica rce(s) Supporting Document(s) Leukocytes [#/volume] in Blood by Automated count 17.7 10*3/uL 4-10 H [facility] Erythrocytes [#/volume] in Blood by Automated count 3.07 10*6/uL 4.1- 5.3 L [facility] Hemoglobin [Mass/volume] in Blood 8.7 g/dL 11.5-15.5 [facility] Hematocrit [Volume Fraction] of Blood by Automated count 26.7 % 3 6-45 L [facility] Erythrocyte mean corpuscular volume [Entitic volume] by Auto mated count 87.0 fL 80-96 [facility] Erythrocyte mean corpuscular hemoglobin [Entitic mass] by Automated count 28.3 pg 27-33 [facility] Erythrocyte mean corpuscular hemoglobin concentration [Mass/volume] by Automated count 32.5 g/dL 32.0-36.0 [facility] [Ratio] by Automated count 16.3 % 11.5-14.5 H [facility] Platelets [#/volume] in Blood by Automated count 431 10*3/uL 150-400 H [facility] Differential cell count method - Blood [facility] Neutrophils/100 leukocytes in Blood by Automated count 81 % [facility] Lymphocytes/100 leukocytes in Blood by Automated count 12 % [facility] Monocytes/100 leukocytes in Blood by Automated count 7 % [facility] Eosinophils/100 leukocytes in Blood by Automated count 0 % [facility] Basophils/100 leukocytes in Blood by Automated count 0 % [facility] Neutrophils [#/volume] in Blood by Automated count 14.37 10*3/uL 1.8- 7.0 H [facility] Lymphocytes [#/volume] in Blood by Automated count 2.04 10*3/uL 1.2-4 .0 [facility] Monocytes [#/volume] in Blood by Automated count 1.30 10*3/uL 0-0.8 H [facility] Eosinophils [#/volume] in Blood by Automated count 0.01 10*3/uL 0-0.5 [facility] Basophils [#/volume] in Blood by Automated count 0.02 10*3/uL 0-0.2 [facility] Nucleated erythrocytes/100 leukocytes [Ratio] in Blood by Automated count 0 /100{WBCs} 0-0 [facility] ID Date Data Source [id number] 11/17/2019 02:16:41 AM [facility] Name Value Range Interpretation Code Description Data Anjelica rce(s) Supporting Document(s) Bicarbonate [Moles/volume] in Serum 33 mmol/L 22-29 H [facility] Chloride [Moles/volume] in Serum or Plasma 110 mmol/L 98-107 H [facility] Creatinine [Mass/volume] in Serum or Plasma 0.80 mg/dL 0.50-0.90 [facility] Glucose [Mass/volume] in Serum or Plasma 105 mg/dL 70-140 [facility] Potassium [Moles/volume] in Serum or Plasma 3.4 mmol/L 3.4-5.1 [facility] Sodium [Moles/volume] in Serum or Plasma 156 mmol/L 136-145 H [facility] Urea nitrogen [Mass/volume] in Serum or Plasma 37 mg/dL 6-20 H [facility] Anion gap 3 in Serum or Plasma 13 mmol/L 8-15 [facility] Osmolality of Serum or Plasma by calculation 331 mosm/kg 275-300 H [facility] Creatinine/Urea nitrogen [Mass Ratio] in Serum or Plasma 46 [facility] Calcium [Mass/volume] in Serum or Plasma 9.0 mg/dL 8.6-10.0 [facility] Glomerular filtration rate/1.73 sq M pre dicted among non-blacks [Volume Rate/Area] in Serum or Plasma by Creatinine-based formula (MDRD) 83 mL/min/1.73m2 >60 [facility] Glomerular filtration rate/1.73 sq M pre dicted among blacks [Volume Rate/Area] in Serum or Plasma by Creatinine-based formula (MDRD) >60 [facility] ID Date Data Source [id number] 11/17/2019 02:16:41 AM [facility] Value Range Interpretation Code Description Data Anjelica rce(s) Supporting Document(s) Magnesium [Mass/volume] in Serum or Plasma 2.4 mg/dL 1.6-2.6 [facility] ID Date Data Source [id number] 11/17/2019 02:16:41 AM [facility] Value Range Interpretation Code Description Data Anjelica rce(s) Supporting Document(s) Phosphate [Mass/volume] in Serum or Plasma 3.5 mg/dL 2.5-4.5 [facility] ID Date Data Source [id number] 11/16/2019 11:49:16 PM [facility] Value Range Interpretation Code Description Data Anjelica rce(s) Supporting Document(s) Glucose [Mass/volume] in Capillary blood by Glucometer 188 mg/dL 70- 140 H [facility] ID Date Data Source [id number] 11/16/2019 08:05:24 PM [facility] Value Range Interpretation Code Description Data Anjelica rce(s) Supporting Document(s) Glucose [Mass/volume] in Capillary blood by Glucometer 105 mg/dL 70- 140 [facility] ID Date Data Source [id number] 11/16/2019 04:56:07 PM [facility] Value Range Interpretation Code Description Data Anjelica rce(s) Supporting Document(s) Glucose [Mass/volume] in Capillary blood by Glucometer 164 mg/dL 70- 140 H [facility] ID Date Data Source [id number] 11/16/2019 02:33:12 PM [facility] Value Range Interpretation Code Description Data Anjelica rce(s) Supporting Document(s) Bicarbonate [Moles/volume] in Serum 32 mmol/L 22-29 [facility] Chloride [Moles/volume] in Serum or Plasma 110 mmol/L 98-107 [facility] Creatinine [Mass/volume] in Serum or Plasma 0.72 mg/dL 0.50-0.90 [facility] Glucose [Mass/volume] in Serum or Plasma 104 mg/dL 70-140 [facility] Potassium [Moles/volume] in Serum or Plasma 3.8 mmol/L 3.4-5.1 [facility] Sodium [Moles/volume] in Serum or Plasma 152 mmol/L 136-145 [facility] Urea nitrogen [Mass/volume] in Serum or Plasma 37 mg/dL 6-20 [facility] Anion gap 3 in Serum or Plasma 10 mmol/L 8-15 [facility] Osmolality of Serum or Plasma by calculation 323 mosm/kg 275-300 [facility] Creatinine/Urea nitrogen [Mass Ratio] in Serum or Plasma 51 [facility] Calcium [Mass/volume] in Serum or Plasma 8.6 mg/dL 8.6-10.0 [facility] Glomerular filtration rate/1.73 sq M pre dicted among non-blacks [Volume Rate/Area] in Serum or Plasma by Creatinine-based formula (MDRD) >6 0 [facility] Glomerular filtration rate/1.73 sq M pre dicted among blacks [Volume Rate/Area] in Serum or Plasma by Creatinine-based formula (MDRD) >60 [facility] ID Date Data Source [id number] 11/16/2019 02:33:12 PM EDT [facility] Value Range Interpretation Code Description Data Anjelica rce(s) Supporting Document(s) Magnesium [Mass/volume] in Serum or Plasma 1.8 mg/dL 1.6-2.6 [facility] ID Date Data Source [id number] 11/16/2019 02:33:12 PM EDT [facility] Name Value Range Interpretation Code Description Data Anjelica rce(s) Supporting Document(s) Phosphate [Mass/volume] in Serum or Plasma 3.0 mg/dL 2.5-4.5 [facility] ID Date Data Source [id number] 11/16/2019 11:58:38 AM EDT [facility] Value Range Interpretation Code Description Data Anjelica rce(s) Supporting Document(s) Glucose [Mass/volume] in Capillary blood by Glucometer 150 mg/dL 70- 140 [facility] ID Date Data Source [id number] 11/16/2019 09:26:23 AM [facility] XR CHEST FRONTAL ONLY [id number] RESULTI nterpreted by:JOAN MckeonLINICAL INFORMATION: Assess lung status in patient on BiPAPEXAMINATION: X- RAY CHEST FRONTAL ONLY, 11/16/2019 9:02 AM, [id number]: Chest radiograph dated 11/14/2019.FINDINGS/IMPRESSION: 30 degrees portable frontal projection of the chest.There is interval increase in the haziness in the bilateral lower lobes with prominent appearing interstitial markings. There is interval increase in the conspicuity of the opacity in the lateral aspect of the right midlung region, could represent subsegmental atelectasis. There is no pneumothorax. No significant left pleural effusion is seen. The cardiomediastinal contour is unchanged in appearance. The visualized osseous structures are unchanged in appearance. There are stable position of right subclavian approach PICC line and enteric tube.This document has been electronically signed by Mikey An MD on 11/16/2019 9:24 AM Name Value Range Interpretation Code Description Data Anjelica rce(s) Supporting Document(s) ID Date Data Source [id number] 11/16/2019 08:31:26 AM [facility] Name Value Range Interpretation Code Description Data Anjelica rce(s) Supporting Document(s) Glucose [Mass/volume] in Capillary blood by Glucometer 158 mg/dL 70- 140 [facility] ID Date Data Source [id number] 11/16/2019 06:40:25 AM [facility] Name Value Range Interpretation Code Description Data Anjelica rce(s) Supporting Document(s) Leukocytes [#/volume] in Blood by Automated count 13.7 10*3/uL 4-10 [facility] Erythrocytes [#/volume] in Blood by Automated count 3.08 10*6/uL 4.1- 5.3 L [facility] Hemoglobin [Mass/volume] in Blood 8.7 g/dL 11.5-15.5 L [facility] Hematocrit [Volume Fraction] of Blood by Automated count 27.0 % 3 6-45 [facility] Erythrocyte mean corpuscular volume [Entitic volume] by Auto mated count 87.5 fL 80-96 [facility] Erythrocyte mean corpuscular hemoglobin [Entitic mass] by Automated count 28.3 pg 27-33 [facility] Erythrocyte mean corpuscular hemoglobin concentration [Mass/volume] by Automated count 32.3 g/dL 32.0-36.0 [facility] width [Ratio] by Automated count 15.9 % 11.5-14.5 [facility] Platelets [#/volume] in Blood by Automated count 360 10*3/uL 150-400 [facility] Differential cell count method - Blood [facility] Neutrophils/100 leukocytes in Blood by Automated count 81 % [facility] Lymphocytes/100 leukocytes in Blood by Automated count 13 % [facility] Monocytes/100 leukocytes in Blood by Automated count 6 % [facility] Eosinophils/100 leukocytes in Blood by Automated count 0 % [facility] Basophils/100 leukocytes in Blood by Automated count 0 % [facility] Neutrophils [#/volume] in Blood by Automated count 11.02 10*3/uL 1.8- 7.0 [facility] Lymphocytes [#/volume] in Blood by Automated count 1.76 10*3/uL 1.2-4 .0 [facility] Monocytes [#/volume] in Blood by Automated count 0.85 10*3/uL 0-0.8 [facility] Eosinophils [#/volume] in Blood by Automated count 0.03 10*3/uL 0-0.5 [facility] Basophils [#/volume] in Blood by Automated count 0.02 10*3/uL 0-0.2 [facility] Nucleated erythrocytes/100 leukocytes [Ratio] in Blood by Automated count 0 /100{WBCs} 0-0 [facility] ID Date Data Source [id number] 11/16/2019 07:22:21 AM EDT [facility] Name Value Range Interpretation Code Description Data Anjelica rce(s) Supporting Document(s) Bicarbonate [Moles/volume] in Serum 33 mmol/L 22-29 [facility] Chloride [Moles/volume] in Serum or Plasma 114 mmol/L 98-107 [facility] Creatinine [Mass/volume] in Serum or Plasma 0.77 mg/dL 0.50-0.90 [facility] Glucose [Mass/volume] in Serum or Plasma 173 mg/dL 70-140 [facility] Potassium [Moles/volume] in Serum or Plasma 4.0 mmol/L 3.4-5.1 [facility] Sodium [Moles/volume] in Serum or Plasma 157 mmol/L 136-145 [facility] Urea nitrogen [Mass/volume] in Serum or Plasma 39 mg/dL 6-20 [facility] Anion gap 3 in Serum or Plasma 10 mmol/L 8-15 [facility] Osmolality of Serum or Plasma by calculation 338 mosm/kg 275-300 [facility] Creatinine/Urea nitrogen [Mass Ratio] in Serum or Plasma 51 [facility] Calcium [Mass/volume] in Serum or Plasma 8.7 mg/dL 8.6-10.0 [facility] Glomerular filtration rate/1.73 sq M pre dicted among non-blacks [Volume Rate/Area] in Serum or Plasma by Creatinine-based formula (MDRD) >6 0 [facility] Glomerular filtration rate/1.73 sq M pre dicted among blacks [Volume Rate/Area] in Serum or Plasma by Creatinine-based formula (MDRD) >60 [facility] ID Date Data Source [id number] 11/16/2019 07:22:21 AM [facility] Name Value Range Interpretation Code Description Data Anjelica rce(s) Supporting Document(s) Troponin T.cardiac [Mass/volume] in Serum or Plasma 0.31 ng/mL <0.01 [facility] No Significant Change since last result called ID Date Data Source [id number] 11/16/2019 09:02:01 AM [facility] Value Range Interpretation Code Description Data Anjelica rce(s) Supporting Document(s) Magnesium [Mass/volume] in Serum or Plasma 2.0 mg/dL 1.6-2.6 [facility] ID Date Data Source [id number] 11/16/2019 09:02:01 AM [facility] Value Range Interpretation Code Description Data Anjelica rce(s) Supporting Document(s) Phosphate [Mass/volume] in Serum or Plasma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 97/01rYAgA0PWT+J//iizP/hD8y6on5dJhvj0m/On3F/8J5O2eF1H8ACP5s/R8MUj/1e95QHdn6a4QXt +yNCOV+2QvBV6tB4W91pc7bND5xp+kb0t+mv7ApCs7 iV31d4vPU1p39bV81+SF8/nExu8qFw0U7w1sm324cY1n49OYj/15v8V236w5Vym35Ktkdbe4zGl13t0+ 18Isb69oI5vr47vFyt6PPrmK3xPZH/3o4ie563+8TY462pOqyqo/Uuiu3fr0t7m/m64y01mPK/vhHkfz xJaW+/O9J/+ftR+zTPK000kwkAt+R35L/6nmeHvydi xR+i0q8K5yq/y8ocq6o/aty5p35Nsfj2WCz+//5l7TeN/ILfl/v+l/FjKVXh4nxO0Zb/46t9ux4du/Sb r/qarq/9cQo1Vnm1ej+8pgFaskGz28we1vbwT+w359ozh5Kax46QWjjecG/Ya85TzojcI77pip+kO/Demetrius X/V1y/EhjY9z5iaF/pdWbPffT//qKSLAn7+0fdHgfy 7/BYP/lu1C2NF++fhNv/rRH87R3gmbm/fOd/z/K0vp+qSxa777rwh8+8XaX46n2g4M/IH8ie+cV6+98H 6yboiv4/fiUgf9X3fXcz9/oO+ws8d8f+mC/IW7zgsu48Wxd7Qp4b/9erB3+QYMvaoSkti3y04Azc/0RP 5E/kL+Qv5G/r75zq++6FpPNWZ00rvBz9z24/Dum0Z+ RX5F/m2/NijoqIwQno33l51R+P1A/rJx31lBuEp65DAf9c6ZZp9jdvS715R9dElowR/IN+JD1HfrT+TX b68j5hptnlgF2lwdhC4Q959nigZ/Kc8vwjZ/I3/niCBjo6p+IR/6il+tCOG+188i2uFngm9X+Nurys/I78 mwao99g0FxOjGb71n7YO3LIutegnX7Cf1SjdcQj47q sGf3Z+FX7u/OqkC/ILfu/+oMOMi8qcjC/E19vpqI/bJCFR5TAzyGa4igkJkfGXgYD02L+cX0W/4fwq+h PnV1/6/p19xrYlo1c+/BaFzt6w8/yG4Ei7PzVW80jhtyx+8QePw/7SA/kD+arfSF9/6/LnMx0Yehcn+O Ifdn4F8jkwASH593h8M7iunF+WJ79ZoT2rA16Dgd5h TrohvyG/0z6i9i6hr+J1Yl0tTa0yu0Bwllxr+/uBlE9rdW3rtyRcXJHnttEdS7D+5vmZSz4I+rm3ph75 iPVN4/ea/18d4S990Yrj50Jo92zWH0z/0dFoZ63xXH/jvVho6l9X/LyG7sPbog7+6/pqr200w9dhOccO XxQ15IbiWF+dthj5dld30ws0JNp/juJn36vlSQWic8 fcvarB8SNn/OeEouz9n/LQ7fAJ9zjVjPcJVyKOIuS64/9UNEzGxjkm8bUgs8puddJsG2+mbngOV4A/+V NV+v6MfROc4mM6E2J60Egjj1o32MelGxyyo2nPjn/4xk81vtZ3/1gDEGq41nS8/swirPa6Xgl0jdctfz B1KnlIcxcNGt/CT7QOEp8PiVanZ68CJTg78Ihd1sRH 8PIgyX17pQN7gjqWk946tIQj7DoIzDvkH5cXsRsUlQOyfSo0tJOQkY853JHE6bZ6JVkabkgIU67EsG02 lL/6Te/n/zqggFmYi1BmT+g8Qt13dkDS7LjzU+OS4BmhJ+Y21NltF+QP5E/kT+RDX4O+6basyg0tMFRs 1UwkWSp9tqOEma6m5VjiQ+TXj+95/HOM9R7+HGOWRz /HWO/BzzHOeuxzjHEe+hxjrkc+wetrfz32abwYwH1/HtD7X5cv11xiaq/22Lmu3q7/Lw/S9/9JyrIqw3 od2WSUfU8+9HUPO6tuxvD/IH/qAKTheby0fi9izc5N+qbc81Hq6Jvb30U/2Ljbv2nFutg5b8Z7932C6k il3b27vLyitSkiB2S/Zw3WR5oMT2zR3/HVhvbbLt/w hHaD4zc+kL75/BkIOx6eybOg0YdWGp40Wi/fuOlBzDeNfPRXvSG/K17nceU/TM7nj07+UCxHHlKpQ3dy JO608e27hsYUFgAA4ccOE44Gtz5sGqO262uYxbcQRi5lu3xunsnfDF6t/KU78rU+of7aaKDBmczJu/RA 5cIvMpv8yekmCpYphB/0iSolq9iwXgbz9IW+pU0Rj1 UIOgjGfWAD3wutRBr2XCaBaY34NcrTCasWKsCUKu5Il5LdZQu4OvjHYTdx9pdxrppmutjTffpkxuDeyE yyvSm5fFmFvAnVQN0RUn69jwlzUu3Nt6czI6ST/Oqk++OOXkz097gz+H3Beyp+18zpXealy1BdzoUT8B N20fgkpJRLtVbzqGlEDM79vQ4QBnD0w/YocEPqk77q q96NpX72j4eSTDsjyV3xU70i+tXWUnjjpCOnyiWU7eHLP25yc09Ulv65g6tqL+hLE97T79Jglh+RP5A/ kO/3mg5tS0K0xsYrlh8dNr+P9G+FG4+IN3d+Cd10Qsg2ANYq52uYg6K+UOJjtf1ppV248Kz+pp9kKz2p /JdWeO+rb1nKf/AkUzXqxnJjbf2lGbiB9eovIWNL7h ur7dMs34/+VjROq971ox1uve3q5i2NNk0S3Ck0llv+0xV6BnwiF7o6iB5FqoxF+dVJv/ir22j5mwka/M pkK+dXEUzp/Cq+okjZDP45j6Xaq8gve+47enA0XnG1rzTRns1oBuqN+IUT9ivCPKC2i7fU6swAoXN0h8 owPudXEZHn/Eo+4+RI1sjtcbhHtHz/Nv3e/Vnf7/zq vLN+udCxspSkuY8q+VlV27ebw+wGvek2pZ/tZlZr3bgGet7m+lV6Id/eC1A0mxYAu838j4Ybz+uHzq/C t04y2re2W/cszxijP9s6XTHfgqtATDcoSVQ0+k+PM47+6oKJB51NyX+mLCYaSqjrU8u152jce+L38+vn Pb44+nkPL/7K2l9/8mRGAczl0BMMb5y2fqrHZVr08m Bs2nkl5jq6UHB0ky11cEt+5BRRB25xE14ai08aSZ4Ma+m6L9fUre2fsk9Nt8FDlf8qpV46lxMNnowIlo XRbUQX4TlwMCg3oFuLd33pcyc3uaA/2Kd64ujno911pb4Y+Et3/L7j/m25Fcb6J0+fKHchfyF/I3/ffO sWWmg5nyn58suKpuDflz/9KzUp0aknky/0AvBI6j/6 XxH0uu19ns2QI9zxQsvkulHBbnQubB11kVxvnb5GF9QfrF2lh/MY4eB+RhDvhFZDnkkg3q/U3rV+VSL9 6sWw0bhDY0o1PaOTH+xSB8ldzKMvCur+0gv5C/kb+xfam0utrRSCEv5nPfBu/uABwV+4ML2beuY/4j0N 728otyO/U06fxvUk+q1sy4TeHuk+a1+5Jk3P285CR9 bS1/7bkK/0rgqC1kvzMTln48ockP/Xj1rkgL/W21bqiM/Gs4qohZ/WX7dnlD7pbbw38mHuNlwRQ5/zDV w9130P0wufq5spX/FVs5r19my+p75kti2dKeNKfuDW+RPfs/Go76yKWedId/Xe2iqEjC3dtV/391q/in RBfsHvvb+ZvBFYK0Ypylya1ggcbwF/I38gX/NBj+Fx fqU+jMn24GZ++pmNrwHSIql89920fr0BBMPNYgiSGKcscJ/sOn/lfWMvt3/t9mgDhOIaB+Tf/jefz8WS 6eNonXh8nk3HaOKPTjv5b6svWn84K2SgT+1IUcwC9qXakCthrlbdXselumP/da0utavbBkxyS8E4VNf4 bmaRzz4X0g4usd26HOSf32/mo0k7RRm4X4bVGdeqrO gnJH24Ar1uumJ/Fb+qLA92vgPik6y9uG6pvN0+Nb/c3Xwv9wFE4lVcE0p5l5d00SlOC7+KNPIrfl/7TT fkN/y+f/mif96V2quA/Rh9Rv0c/EpzbQ/CZXm34XEKudu/ApAZug9Y20zmJ0+5m095p8m7Tb260AN5tz yK/Ad9jhpW/X97diwXjXbT/t+hr/TooH740G5wQ6/X ky5bbhuVk0Tr6/d7vpovfvos6bU3/xL3RtpK00nvt0AuJvi/Dz0eckX+15I8irY95il0z/Px2R5Qfy4n iikRpOAA5hy+NMZE6q0M/PC6/WS85Wl5q85qyjRh5/cKoLP8KgmX9h/0/FO0Xr8D0yu/0kKVM60V+3V+ qtcAs5KSuWctdeSd4jO4l4uliA5R5Xdyd6K/nzOv9I BwnFq5QO9PHg2uZrjxRu4zohOnHLjfTi7We6pdA+4fd4eUEymO67Q+VK0J19vbw2V+Avilez+93wq6csfP7/ jJ3TwYb9Iygx4RRv6aTwqJ/xkI175V689nswQvP3nP/7zRP8f+oNKGfEN+uf32Rv/s/Rf7l78VvpRM/7 wb8jt+32//7/brmBn9oR1F27x+2vUUcd0t3W9jMO+S PWPxvuefh/YHV6S/cX889/hpwZz4XqbH+VU8PlrW+Ye56CWym399LMqOMybyvT/Zh4fdrB/K18ijJ0/5 1Zf++LNYp2VTmocz6SFGA/qg0Vu7R3DN3s7f0q7OWDSrXckeyriP5xgPjOB5eGdaZ1Xi5ieM6K1fIK78 zz/s7qcMu+aFBi3pgDZ6Q0r1+6FD56+0grG0tjLwa6 S247dRgC8AV4adz/2yqTwiwTU0LjAZtw3vpVx+frY7or0NhlaF/GU1hclA/Hu+tpU7gt3WB/mGfEN+QX 5BfkX+LH62sH2nlFd06p2o1WWo+bpRB/MHlFg5N8GGlE/ypedj/5lS43lB05kItquv55rHp6S+aUO+Ib 8g/10A1VjP36oTw1XMuG+F77W7v++RrMdXG/y5wZ8b /LlN5E/kL+Qv5G/k3/n+6He+P/qDfEO+Ib8g/3jtoK7tl5D0y2VG+9X+OKEa9fmeyT9V1BW0rltU/In8 hfyF/Y92wh05vs7mraajdvWTt4+p/cFIF+CG20W3K2v5+9LnTGB34VS+B+p3oH7j/FUEpF4/wfmrgfNX Q+mtCq1Cj90rZKx/GvNBviHfkF+QT57jxz1yKtGyut Jc84brHXng22aMPs/5jTHvfvfQ+aKh4jar+cdE+533/OSY9/kx2Pc3n585En6mZPuN2Ar4gd6z8itcFZ 2/snS+Xd+g8+2RbshvyO/Z27wyuK/IR3/l/On5k9M3gziqmxh/9MUkE57t/XSQk80pD93nV+x7XmVo/U r23/a4vlkrG90lLDGa0twiznV+dcJKkT+QP5E/8Z6F 05N95ub18jzRo1zBq7uZwfaiRjTi2cri62kP+dz2O5+K/Qf4bpuW/X65xooB/Ty8lefY/IX8je+Evnbb 7xS/Gu1Tkhup5g2GSg3xGuXv/XPPAs0Uv+djpzXkN/z+1u+2r779xx3Um/8qZKshiKpL5UqDa9Cg5e9g waScE1GZwkqTBKltE9k+sUCJgXaM2Z/qH1B62gucza teacher of the emotionally disturbed/PSZ62M21ygkUVi4a5cpU5yV/NIROK1PjCn6is5Pd0byRgn/YcOhJ35lraGcx8MK0e4+o5sbKB0f6 18vo7Fvb5l3Pd0vu9CdzX7IJcdEXv+k7cCwmJV5/Fx7isydn/GbfDiGBvNNeT9Qt5TW8lmsLSO/T6Pv1 lqlfAitlzw+cdsBm9c9+nxRl8zxz/PTM/42/w+j/M2 v8+i3q0q7LOKBaqvPiBPJ2qcKPY9K4bjDNnoheDpfHwlk8amXzlCOY7gbaBU+A0kIyUeYNnJEXEFIOYA SCPSiHQinYhsIEfqsoH+GsuROP4OCZAPGEaARVQ39BZxlUwFAATfbZwmHggEBntQchPoTEkXPRCBwKPO YhZpHDLt92RkiM9uguTK4LL+6B5u2HxovCuULmG3+3 8lei7SAGGy9em1Flze+zxOy/L7PJqu/Jt+v3klWGGjgomc3Fu5/uPrpyMwUgmH8hZAPo4a+Z7fAUkNDe /C5dZID7F2QI4KI+00l/xKtrIcDbWNLsJ5tDyUk/AIUX/mNMMl1BYR3Xj9bgMqZBuUGo/WYu8vO9aNUB lpk6jbexcwWnxTxw4w3jZVgbO171O9OFvwzQfeNdb3 5PTygK7kB7myw5mp8bGd4mXNNY5PLtXE16mLJfLipvBrUC4F0xR5wNUiGNVvAiwAqnVyk98FcWPUQu5E T4BMoRXgnenlLCg1H585BSVYPAcKASSu27RwfEXAmToJUfBTpJNPQszbn6yE9u7jlcf4JOCXYMGQiRwb bBDCIrKIbCIbSHkeCkSMiBEJGywJsEGpqLlCPygNvl RhmTo035ItqD0zTA5vOyVVKUrLp4KdBYDfLkI1oB9gIz9MNuaBhCTjqBp7mGnIFd3u3v45SqRVIkcRZw TCAeaQIISHCE7tbqwY80A8Awg8vdwlYMYOlqhdf5P5imDF8QtnmVDAL6s3xU1bSBSMHdIF0AK2jDAU8a B7ZJUNUD4ChSDARKSgedc23mDIzNLYYUlcGVWhZEuK [file] /C+Fk7LZyu/merchandise distributor+4hU3ngee0cTikEqcHZmlHnb4D6B [file] Mq1WHM0+09rfyfjmPA52dz0tZ+He8d/kGsM/APYgzw/AKwZ29qpD+IuQD/Gregoria+7COME/iXAv8l6YasZg nfUr+l/sh1yh+7Nu79uiXhsI1OvzAt8jr76dJl2Aoste+hH3D+arNc/Dee8Uo7pT/Wu1C1xKJf4ufqsf gDq+IE9ze1ihTqCQ/oAi4rg0Ckjtqxlhm7RbqUL4JM KddUT70uxBJs/hX8The8nl6cgulvHj7IePv+hfED/Qr9sEt/OoNdXJ7sO0REgB3j2T9BO6kjuS2XviUW qx77V+hD7F+x3KS+Lcfzem8PbjN+13oI/QrzFPpVlqVevr/Je5jnOq+tboz8osly9Unbg4Kmr68Us1ie q628vA822Iwyxgy1WP0L+i71Q+bX6TqKf5PHn99bba Jtwm5p9Waxr2ZvfVf1Kmoq7NjXn6B7qyvfNi6M60e6iiaX6apGM0x4Q/uc7L7j3mvuS84B3me+2l5332 221G+mT4Nb7z+2sn+7xn58kthkkAX/bit/6GfZ56un92M2EfziAr/JUwQfWg2td2GW/oZ89tF09jahkF ONwa93kL0/SHB17I2x+Twpx6q5+VN2L/nlFz9SxXq8 8jOEPrBj/ngZXsh27Q+bB1NfKk6GH/hU3zA7hnD7y24FCJ+udol+tbuMZ+tU6PBdT6Lc5t2P0a+GfsWy tH2g86fB+6U4p178C0AC/tTrYbI5h1ZFsk51CPkjHj+kljn3xdsi4QLcky/3lPwJH7sn2BltP//CdpPr dKnvUj+posk9am4zr+8rhJkcVQN0zwlv0JktkV/v43 jsY1O06Ligc5+9vb5HG/5BjJ9Z+MZ8kXCUsJ6hcb2qUM03/Zn98uMR45I//qA94/hf6Yu8ih+E34e/Curly L3EV9m+E30hktmG647E9sBH2q/gy0jlp32no+Z53G4rRH6L6/Inufxi+78Srhkp85F1otD/3YQ30J6WQ p9Ps8fXq7u8kId7R/Me2oKCbosjAf/EPvqG/5BzC/4 Byd+n4sO4JD0/IPwM+2rXpD8E3k/EGeDd/mAZ88nZF6QtytO/n4/fvYd+hA45bw8E/dRhytX9JYcInfJ emilie/vrvOTG/tXg+YjY5a6J/eW+btlPFO/mzmFswY5zF4Hkdrbpj9q6s28Z6q28sN/Y++yjzbOX+H94vwV +uc+5S/hu45D2lTzF7gns+LGdm8rq530ax6FO0 [file] P33/+Wcf//Dq/fsPH9/9/FAWN/+RXn/4RnXjNr/r5m7 9wmVstuC/zi8+fvv/c6z3qt9/88PHzTz+83ubHT//xNQI+yxd555rr/jHke91l/uvff//Dx6f//fWvH3 7xzc+/kZ6ibtmGvr/ZZO/ff/n4h0+//fzx6Ve//tB0Z55ti29vl/e2m0nxqG10239/bL35roapx6631l 2b7+5u+/Vcc6SwLNub/funP/7rv/35D7//l4//4399 /Oq77/7uF5+//2+fP//Nxw+f/u7LNx+//vSzTx//9F9m/6e//vjTHz/m346/jd44X/y0xmeXs5/1nwZA REHdFzb/wx/+9t/9ecu5FK8tiw9gQ/cY3G5F0C/4uH7x/uvKZavOax27/ghyhGZ27WVdf3/qNJtndXmu t7ijsqNUde3dCq/Rg3kvjOwaN8y/+3/9/Z//UC485g erbz9//Prnn37+95sZ8io/[employer]GRAM OFFICER/+0S2M4Fk2kr57GoOargb6jQUr3R9NZkyWu8a8KzCw/v6P//FfP/78u/ /4/dvlXx/oE1VluH/0h3//4zGAdn5/fPUEf/39x7/98T9+/+f/+bv//hcun/35ly7/dIUuO974cbpY+J f/8Xr4f/vMB556/hl264Nm8dUY1zue/vbvv/yz4K9P rwn+snX+5eTXd629xoDuGcFVEg9g26SGLopQ64tzl1Ddp090rE//9JdlrDk41s/z+3//otDb6iv/5Oef f/sIT1vCg+69Buj/+vM//uQNdp6n6sj//8Pv/gdfZu8n+Ne/+x///Lt//7ff/fE/X+Hpiu//9Kc/fHXu dHM/+kk+9S//0Z8isJ8jGn4a2lGrPl39/p//rz/+2z +/mqFDxa4MzbrHnb5PBTm11//jNXz+4dgxjcftP0POrxW/V7/6/M4JE35TqIh/XP//m3LdEqdscVU/+n f/5+8/2sef/vXj/lH46j64c/7j4/Nr2s/+6syzI838yCEx5W544/nd96/Sc7wIO4W6WW/6+PT119/95t [file] [id number]+QwqfbAFeoOklJYRVCvHzCkWXSCZVG8D= ID Date Data Source [id number] [facility] Interpretation Code Description Data Anjelica rce(s) Supporting Document(s) Troponin T.cardiac [Mass/volume] in Serum or Plasma 0.18 ng/mL <0.01 [facility] Results called to and read back by 9F LOLIS Villalta DUSPER AT 2150 BY [id number] ID Date Data Source [id number] [facility]2019 08[facility]38[facility] Name Value Range Interpretation Code Description Data Anjelica rce(s) Supporting Document(s) Glucose [Mass/volume] in Capillary blood by Glucometer 211 mg/dL 70- 140 [facility] ID Date Data Source [id number] 11/13/2019 06:06:01 PM [facility] XR CHEST FRONTAL ONLY [id number] RESULTI nterpreted by:Jay Reyez MDINDICATION: Worsening respiratory status.TECHNIQUE: A single frontal view of the chest was obtained.COMPARISON: Chest radiograph dated 11/13/2019 at 4:06 AM.FINDINGS: Interval removal of the endotracheal tube. Enteric tube is seen traversing below the diaphragm with the distal tip out of the odewi-aw-oqsj. There is a right subclavian central venous catheter with the distal tip in the right atrium. The cardiomediastinal contours are unchanged. There are small bilateral pleural effusions. No pneumothorax. The pulmonary volumes are low. Bilateral basilar opacities which could be related to atelectasis or airspace disease.The osseous structures of the chest wall are grossly unchanged. IMPRESSION: 1. Low pulmonary volumes with bilateral basilar opacities which could be related to atelectasis or airspace disease, not significantly changed when compared to prior study.2. Small bilateral pleural effusions.This document has been electronically signed by Isrrael Castellano MD on 11/13/2019 6:03 PM Name Value Range Interpretation Code Description Data Anjelica rce(s) Supporting Document(s) ID Date Data Source [id number] 11/13/2019 04:19:11 PM EDT [facility] Name Value Range Interpretation Code Description Data Anjelica rce(s) Supporting Document(s) Glucose [Mass/volume] in Capillary blood by Glucometer 171 mg/dL 70- 140 [facility] ID Date Data Source [id number] 11/13/2019 03:32:40 PM [facility] XR CHEST FRONTAL ONLY [id number] RESULTI nterpreted by:Jay Reeyz MDINDICATION: Evaluate pulmonary edema and pleural effusion.TECHNIQUE: A single frontal view of the chest was obtained.COMPARISON: Chest radiograph dated 11/12/2019.FINDINGS: The endotracheal tube terminates 2.2 cm above the kelly. Enteric tube traverses below the diaphragm with the distal tip out of the ehrvw-si-jrsw. Right subclavian central venous catheter with the distal tip in the right atrium. The cardiomediastinal contours are unchanged. There is blunting of bilateral costophrenic angles which could be related to small bilateral pleural effusions. No pneumothorax. Interval improvement in the pulmonary aeration with persistent opacities of the right mid and lower lung. Interval improvement of the left retrocardiac opacity.The osseous structures of the chest wall are grossly unchanged. IMPRESSION: 1. Suboptimal position of the endotracheal tube. Retraction of approximately 2 cm is recommended.2. Interval improvement in the pulmonary aeration and left retrocardiac opacity.3. Right mid and lower lung opacities which could be related to atelectasis or airspace disease.Findings were discussed with Abelardo Valerio RN by Dr. Gr via phone at 8:30 AM on 11/13/2019.This document has been electronically signed by Isrrael Castellano MD on 11/13/2019 3:30 PM Name Value Range Interpretation Code Description Data Anjelica rce(s) Supporting Document(s) ID Date Data Source [id number] 11/13/2019 03:08:53 PM T [facility] Name Value Range Interpretation Code Description Data Anjelica rce(s) Supporting Document(s) [facility] [id number] lbm [file] o= ID Date Data Source [id number] 11/13/2019 02:36:26 PM EDT [facility] Name Value Range Interpretation Code Description Data Anjelica rce(s) Supporting Document(s) Bicarbonate [Moles/volume] in Serum 24 mmol/L 22-29 [facility] Chloride [Moles/volume] in Serum or Plasma 106 mmol/L 98-107 [facility] Creatinine [Mass/volume] in Serum or Plasma 0.76 mg/dL 0.50-0.90 [facility] Glucose [Mass/volume] in Serum or Plasma 157 mg/dL 70-140 [facility] Potassium [Moles/volume] in Serum or Plasma 3.6 mmol/L 3.4-5.1 [facility] Sodium [Moles/volume] in Serum or Plasma 143 mmol/L 136-145 [facility] Urea nitrogen [Mass/volume] in Serum or Plasma 33 mg/dL 6-20 [facility] Anion gap 3 in Serum or Plasma 13 mmol/L 8-15 [facility] Osmolality of Serum or Plasma by calculation 307 mosm/kg 275-300 [facility] Creatinine/Urea nitrogen [Mass Ratio] in Serum or Plasma 43 [facility] Calcium [Mass/volume] in Serum or Plasma 8.9 mg/dL 8.6-10.0 [facility] Glomerular filtration rate/1.73 sq M pre dicted among non-blacks [Volume Rate/Area] in Serum or Plasma by Creatinine-based formula (MDRD) >6 0 [facility] Glomerular filtration rate/1.73 sq M pre dicted among blacks [Volume Rate/Area] in Serum or Plasma by Creatinine-based formula (MDRD) >60 [facility] ID Date Data Source [id number] 11/13[facility]2019 02:36[facility] Name Value Range Interpretation Code Description Data Anjelica rce(s) Supporting Document(s) Magnesium [Mass/volume] in Serum or Plasma 1.6 mg/dL 1.6-2.6 [facility] ID Date Data Source [id number] 11/13/2019 02:36:26 PM [facility] Value Range Interpretation Code Description Data Anjelica rce(s) Supporting Document(s) Phosphate [Mass/volume] in Serum or Plasma 4.8 mg/dL 2.5-4.5 [facility] ID Date Data Source [id number] 11/13/2019 03:15:25 PM [facility] Value Range Interpretation Code Description Data Anjelica rce(s) Supporting Document(s) Troponin T.cardiac [Mass/volume] in Serum or Plasma 0.15 ng/mL <0.01 [facility] Results called to and read back by 9F LOLIS MAURICE AT 3215 BY [id number] ID Date Data Source [id number] 11/13/2019 11:52:37 AM [facility] Name Value Range Interpretation Code Description Data Anjelica rce(s) Supporting Document(s) Glucose [Mass/volume] in Capillary blood by Glucometer 140 mg/dL 70- 140 [facility] ID Date Data Source [id number] 11/13/2019 08:12:10 AM [facility] Name Value Range Interpretation Code Description Data Anjelica rce(s) Supporting Document(s) Glucose [Mass/volume] in Capillary blood by Glucometer 170 mg/dL 70- 140 [facility] ID Date Data Source [id number] 11/13/2019 07:10:03 AM [facility] Name Value Range Interpretation Code Description Data Anjelica rce(s) Supporting Document(s) Bicarbonate [Moles/volume] in Serum 26 mmol/L 22-29 [facility] Chloride [Moles/volume] in Serum or Plasma 109 mmol/L 98-107 [facility] Creatinine [Mass/volume] in Serum or Plasma 0.64 mg/dL 0.50-0.90 [facility] Glucose [Mass/volume] in Serum or Plasma 178 mg/dL 70-140 [facility] Potassium [Moles/volume] in Serum or Plasma 3.5 mmol/L 3.4-5.1 [facility] Sodium [Moles/volume] in Serum or Plasma 145 mmol/L 136-145 [facility] Urea nitrogen [Mass/volume] in Serum or Plasma 34 mg/dL 6-20 [facility] Anion gap 3 in Serum or Plasma 10 mmol/L 8-15 [facility] Osmolality of Serum or Plasma by calculation 312 mosm/kg 275-300 [facility] Creatinine/Urea nitrogen [Mass Ratio] in Serum or Plasma 53 [facility] Calcium [Mass/volume] in Serum or Plasma 8.5 mg/dL 8.6-10.0 L [facility] Glomerular filtration rate/1.73 sq M pre dicted among non-blacks [Volume Rate/Area] in Serum or Plasma by Creatinine-based formula (MDRD) >6 0 [facility] Glomerular filtration rate/1.73 sq M pre dicted among blacks [Volume Rate/Area] in Serum or Plasma by Creatinine-based formula (MDRD) >60 [facility] ID Date Data Source [id number] 11/13/2019 06:54:00 AM T [facility] Name Value Range Interpretation Code Description Data Anjelica rce(s) Supporting Document(s) Leukocytes [#/volume] in Blood by Automated count 10.6 10*3/uL 4-10 [facility] [facility] Erythrocytes [#/volume] in Blood by Automated count 2.78 10*6/uL 4.1- 5.3 L [facility] Hemoglobin [Mass/volume] in Blood 7.9 g/dL 11.5-15.5 L [facility] Hematocrit [Volume Fraction] of Blood by Automated count 23.7 % 3 6-45 L [facility] Erythrocyte mean corpuscular volume [Entitic volume] by Auto mated count 85.1 fL 80-96 [facility] Erythrocyte mean corpuscular hemoglobin [Entitic mass] by Automated count 28.6 pg 27-33 [facility] Erythrocyte mean corpuscular hemoglobin concentration [Mass/volume] by Automated count 33.5 g/dL 32.0-36.0 [facility] width [Ratio] by Automated count 15.5 % 11.5-14.5 H [facility] Platelets [#/volume] in Blood by Automated count 262 10*3/uL 150-400 [facility] Differential cell count method - Blood [facility] Neutrophils/100 leukocytes in Blood by Automated count 72 % [facility] Lymphocytes/100 leukocytes in Blood by Automated count 17 % [facility] Monocytes/100 leukocytes in Blood by Automated count 8 % [facility] Eosinophils/100 leukocytes in Blood by Automated count 2 % [facility] Basophils/100 leukocytes in Blood by Automated count 1 % [facility] Neutrophils [#/volume] in Blood by Automated count 7.81 10*3/uL 1.8-7 .0 H [facility] Lymphocytes [#/volume] in Blood by Automated count 1.79 10*3/uL 1.2-4 .0 [facility] Monocytes [#/volume] in Blood by Automated count 0.81 10*3/uL 0-0.8 H [facility] Eosinophils [#/volume] in Blood by Automated count 0.16 10*3/uL 0-0.5 [facility] Basophils [#/volume] in Blood by Automated count 0.05 10*3/uL 0-0.2 [facility] Nucleated erythrocytes/100 leukocytes [Ratio] in Blood by Automated count 0 /100{WBCs} 0-0 [facility] ID Date Data Source [id number] 11/13/2019 05:22:04 AM [facility] Value Range Interpretation Code Description Data Anjelica rce(s) Supporting Document(s) pH of Arterial blood 7.42 7.38-7.44 [facility] Carbon dioxide [Partial pressure] in Arterial blood 40 mm[Hg] 35-40 [facility] Oxygen [Partial pressure] in Arterial blood 101 mmHg 95-100 H [facility] Oxygen saturation in Arterial blood 98 % 94-100 [facility] Base excess in Arterial blood by calculation 2 [facility] Carbon dioxide, total [Moles/volume] in Arterial blood 27 mmol/L [facility] Oxygen/Inspired gas setting [Volume Fraction] Ventilator 0.30 [facility] ID Date Data Source [id number] 11/13/2019 04:00:10 AM [facility] Value Range Interpretation Code Description Data Anjelica rce(s) Supporting Document(s) Glucose [Mass/volume] in Capillary blood by Glucometer 194 mg/dL 70- 140 [facility] ID Date Data Source [id number] 11/13/2019 12:44:41 AM [facility] Value Range Interpretation Code Description Data Anjelica rce(s) Supporting Document(s) Glucose [Mass/volume] in Capillary blood by Glucometer 178 mg/dL 70- 140 [facility] ID Date Data Source [id number] 11/12/2019 08:24:26 PM [facility] Value Range Interpretation Code Description Data Anjelica rce(s) Supporting Document(s) Glucose [Mass/volume] in Capillary blood by Glucometer 195 mg/dL 70- 140 [facility] ID Date Data Source [id number] 11/12/2019 07:14:50 PM [facility] Value Range Interpretation Code Description Data Anjelica rce(s) Supporting Document(s) Leukocytes [#/volume] in Blood by Automated count 11.1 10*3/uL 4-10 H [facility] Erythrocytes [#/volume] in Blood by Automated count 2.92 10*6/uL 4.1- 5.3 L [facility] Hemoglobin [Mass/volume] in Blood 8.2 g/dL 11.5-15.5 L [facility] Hematocrit [Volume Fraction] of Blood by Automated count 24.7 % 3 6-45 L [facility] Erythrocyte mean corpuscular volume [Entitic volume] by Auto mated count 84.5 fL 80-96 [facility] Erythrocyte mean corpuscular hemoglobin [Entitic mass] by Automated count 28.2 pg 27-33 [facility] Erythrocyte mean corpuscular hemoglobin concentration [Mass/volume] by Automated count 33.3 g/dL 32.0-36.0 [facility] Erythrocyte distribution width [Ratio] by Automated count 15.4 % 11.5-14.5 H [facility] Platelets [#/volume] in Blood by Automated count 295 10*3/uL 150-400 [facility] Differential cell count method - Blood [facility] Neutrophils/100 leukocytes in Blood by Automated count 72 % [facility] Lymphocytes/100 leukocytes in Blood by Automated count 17 % [facility] Monocytes/100 leukocytes in Blood by Automated count 8 % [facility] Eosinophils/100 leukocytes in Blood by Automated count 2 % [facility] Basophils/100 leukocytes in Blood by Automated count 1 % [facility] Neutrophils [#/volume] in Blood by Automated count 8.15 10*3/uL 1.8-7 .0 [facility] Lymphocytes [#/volume] in Blood by Automated count 1.84 10*3/uL 1.2-4 .0 [facility] Monocytes [#/volume] in Blood by Automated count 0.85 10*3/uL 0-0.8 H [facility] Eosinophils [#/volume] in Blood by Automated count 0.19 10*3/uL 0-0.5 [facility] Basophils [#/volume] in Blood by Automated count 0.06 10*3/uL 0-0.2 [facility] Nucleated erythrocytes/100 leukocytes [Ratio] in Blood by Automated count 0 /100{WBCs} 0-0 [facility] ID Date Data Source [id number] 11/12/2019 03:40:12 PM EDT [facility] Name Value Range Interpretation Code Description Data Anjelica rce(s) Supporting Document(s) Glucose [Mass/volume] in Capillary blood by Glucometer 207 mg/dL 70- 140 H [facility] ID Date Data Source [id number] 11/12/2019 12:33:40 PM EDT [facility] Name Value Range Interpretation Code Description Data Anjelica rce(s) Supporting Document(s) Glucose [Mass/volume] in Capillary blood by Glucometer 262 mg/dL 70- 140 H [facility] ID Date Data Source [id number] 11/12/2019 08:19:14 AM [facility] XR CHEST FRONTAL ONLY [id number] RESULTI nterpreted by:[facility].INDICATION: Intubation.FINDINGS: A single 30 degree upright frontal view of the chest is submitted and is compared with the study dated November 10, 2019.An endotracheal tube is present. Its tip projects over the tracheal air column approximately 2.5 cm above the kelly. We recommend that this tube be retracted approximately 1 to 2 cm. An enteric tube, apparently a feeding tube is seen. It passes off the inferior margin of the film. Its distal tip cannot be identified. There is a right PICC catheter. Its tip projects near the base of the right atrium. We recommend that this tube be retracted to the superior vena cava.Lung volumes are adequate. Cardiomediastinal silhouette size is grossly within normal limits. The central airways appear patent.Persistent patchy density is noted in the mid lower portions of the right lung. More confluent density is seen in the left retrocardiac region. This has apparently improved slightly.There is a probable small left pleural effusion.This document has been electronically signed by Gabe Escobar MD on 11/12/2019 8:17 AM Name Value Range Interpretation Code Description Data Anjelica rce(s) Supporting Document(s) ID Date Data Source [id number] 11/12/2019 08:06:37 AM [facility] Value Range Interpretation Code Description Data Anjelica rce(s) Supporting Document(s) Glucose [Mass/volume] in Capillary blood by Glucometer 230 mg/dL 70- 140 H [facility] ID Date Data Source [id number] 11/12/2019 09:59:08 AM [facility] Value Range Interpretation Code Description Data Anjelica rce(s) Supporting Document(s) Levetiracetam [Mass/volume] in Serum or Plasma 40 ug/mL 12-46 [facility] ID Date Data Source [id number] 11/12/2019 08:17:20 AM [facility] Value Range Interpretation Code Description Data Anjelica rce(s) Supporting Document(s) pH of Arterial blood 7.35 7.38-7.44 L [facility] Carbon dioxide [Partial pressure] in Arterial blood 42 mm[Hg] 35-40 H [facility] Oxygen [Partial pressure] in Arterial blood 155 mmHg 95-100 H [facility] Oxygen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 Cartographer+wa8ONNmmaZj6M9aHWm+NJdwNU3eQNQqBqzEB1EzVB+PA4vPm39eIHlnt6E [file] +cX7MGeizy9Q+RIVET MAKER+KVmq/QeXOsAvpqcCqspqKep7yk17bUIqYZytb1fbk2GjDCtqp8Lo1ZyTUwbwY2nX [file] 2gDCzQ3elVD78WT4lMZKvxSzLF9gILiO6DleCR9sWUAUb5UNpHbFFB/77YqXzCsrWZbulkGDyyxc+Dinkey Locomotive Engineer [file] 1+//miFq+L7JvcbchG7aiut2a7OvfpXhoDsC2s2a4uNfzZNZuBaTjWI+hhl+b0roVZCf3/YzMtcz+lead python developer [file] ciTuX0JHlT9Jm3U0Pm80Mski1TayxHQGEKvqBUErtu6W3ZrgyV2pZie8IBkTKHJlxiz8jf+4T57h+FIOR Ao+KXo6J5UlXvN8NegYctKJOSwWkJtMQHIjxZUSb18KMQFUnnnY2Fxi0ziN1IBh+j5+XQdg6f5GPs3rG 59oMZRmePE8Tsk2HhXY1b1HgZCmHv7tmzP2E86HYLq Zw9xqWvATfYKy0olH1loHp1UoFQ+YWniJ0eDFUdQarTCpwAyw58FOKfGYMACcionNq+xOBLFQi0KCTZT vQPeEtbYY+nthMh4veFfTXAknInUc/2VeKWuaNnYJWotLwGsPGEVS+GJyKhmPERwbxvQ5elBV3jUAMq8 99nHknjkmAAP8xyUT5du3XoLKM049/SVFjVqNBn+clinical unit educator [file] evp sales/v/qlhI7g3v3nFSab7aIszii2ynQNDogTYQjMWLS/A2yohFsmjeUCxkdFuXIX77TXy44nLZkdI2ykN [file] 9hVK/nf+ZFQI1wC31fUS9nugOQR3WlyVjePAwfsHE7SjIL7gLN2M/1UgkflB1wnCNERTfo6UjjFD+Jean-Paul [file] 5Bs2NGb1Jpp+k6Dl3/MZ03pURz1kA0yBlqZzbtXq1A0FpHt4HSn9aww/paedHOk4Ko4cj6CHBNUe+CARLOS ENRIQUE [file] strategic marketing manager/n/7ViRPFedyITvZOyx6nCJZqdGEHvKSCc+k6+4urejcinVcAnlbOmH6CqvDQZYSdtGNC9jGqeOyw [file] kkKOjJWULgTKhIglzq+ETlcJV/A8neeF5cIGzVeVRqbpcvr13/5/38/ae1iX469bHVV8xO6bNiSibcjv xYvH28LpbEevMs6Ak9nLcTFoA4sRtJmyyTE00bJws3L6w3rw0KcOKfvKveGRh52Xb+g2OEI0PnyOyhoR +HIZ0hBQZTSpv/s5OPC6oZ3acma35kn6IZ/36+v/evp sales [file] ea+Dinkey Locomotive Engineer+Bwt3fTbzc1QM6AC/5soaId1YU+PXCRjM70UQRbxpldyKAPmwWrB0mZkOmvu3ocJnRucuDrfom [file] yKjhF2wIZcWRyduEN+MsS6/java user interface developer/tBLljf83Ef9lgjLlkvZH6+gkT5peOfBGOGX6SBcwZO6xfbat5Rn+2 EEFvyA0PBT9l055jCsrmspotG0cm0EUQa80ZOAZtwBrkwSH2ngQ+wH/FA++u8x4ErdefsdMbuJIrn5Cv YRNGMFkYdAaL3dfdx+lZp2OvO5U5i0eQV5ooi4eMR2 G7k8oP+H/IS92H04CKvPPnb0F7F5iN0k7x1E4rN0a4BU9c5aFKuImVP+db7gsuGuvT10V4HrPa+SkpZG wrIZ3YiHYuh2/ild+UEeKNIsAF56Z2+NK2/ZQW3eBn4Aa+uWa8azNMLxa2ndUKWoN32CVGStNHRCrosC /mlV+xfPSc2UWcJ+lQpu869IJ3Ps8KGJhKp77cec+V n+keAAyzVtjJ5SFM2+Xqz1yZwsHpAhzcJPHP5oZ36Zrv7LXVSJpHNi/Mu3WpE9TTyd+0Xla/0Z7XLIEd vjz6KvjXuLW67hB97f31c9iGFgUvntaFGv2AzFjIbRZlsD91X/XK+x6iAUERbmydu98DKjt9O2eBZvrD MYB0cqLOG1VGcw7V8nC8iRTGbtiRRwtn0tQHgKbNZE cS355UPYM2EzbjzCeVKHt1hOi+6WjTbh0D4501Ke1WOeWHIAhcOMfU1kPj0LYzbZj38miN07oo68VUB6 PhxoiV0PyJObrpo2MkEToIzvRRALq2hvQqx97tji95zq1wnu7Rl0yAV4B3LyDZ8soifauWIdl90LneM2 jNIimJuQy+JK+Tiffany/YcogSCQaWxewEeOlPgTr06wFy [file] yqih6Or7Z3uYBnG1z80XIZhxXTXb4Ocln2lyEaA/gYwUpX25sK//clinical unit educator//nnn/+lfOWy/fH8GPyNq23yeO [file] 7CyhC3/PanHfsrercu6Cibcd4+2IQsD/Xz3/LK/BcpCufRSbMIUKvndqE9c6kNzrl6wUJQnxO2VF/Arnoldo +GJr0x3Yox5jbO6jADDNxX7/h/RcHna36awbXomHTL bAqRSQY8I2xoQ/HXY2HsH1y6J2qldJJ4E/FOETmD6IM/61VfplmQzspZP9B2wzml/GJJ/YAZeZ10jXrm 7EwFNbM5SWXub4OwXdNvW7IhmglN7uucx+QJY8A79CJOBUmUqtA75RVvZV2VMfJn6+i/5MfpPxjQzjDW /szayIcd4u+x0GsYKOVXHuiX5V4HLdldc9nyVzWt0f CyBuWHZ0yUDwQSEw8JHdVY+MR4aYNgvypeaF84MQ0sBcqTj2nCqHkRVwIOn9xjT+xXtPAkCFhbttH4Ek v5u7ODyquEBwrkkRQIr5MiTVbuTuAA+scZIErwbSm03+lhi47fQhfJ6hkV3B8f4UeFoNMiuZp9aF4fXK mWg3mfHIwESj7Oya5s2owlsL81hCy0cIjqQrAS1Sb6 QNoSc2JAkuqN/G2y+YoT00y4miREAedVIzJPTRVxj3jGWdwEVUDke+xrkcTlOPRD3/KLI1AOp4w+GVly udVo5pDPkMUPKh9RWup46Vjq1W7GRsCHV2teaOclMk96bJDcMws1zXqGQ90C24V/olcCXPJAyaPPD3+v KxQAkBmLCbMcJdZIz6Pla5ns+PJTN8w1KXAakuVEMt zp8Przsg3mtxrOPtaoJ4jWjSThfNBcvl2dxSoTqKS1+UW7dbg6S23fMllRMqvpHXoynKSrprPx6oIL+s evp sales/PhMG22vYfxu0ybUomgyc1dUtSzIJ6HQy1LLYDS03K9fGvlZ3vdhAYcy2Yz9ffDQJ+BtdpifWI+wNE [file] Bc5D8mjOrHE/yKdNtxVywh8gShG+mechanical expert+qVNMtSvNIu [file] barrel lathe operator inside+AUAHNLnJ2kPVLoJd87uzvrSO9qVz3cjCSeu/gf [file] [facility]+v3r+t0hvqtHarUx/8Nep699nFw9Cj1lFl+iV5Q+iBlnCxsiUqVe6/zlw5XyqqgKHbA+3gxD9vi9d [file] WX7H1daXu5eWh0+rail car unloader/gVrPkTSsFszxNax/FsGWf7+dns+1IGeM25Se+8/43CeQeqZ7fVIWNay+4iz9s [file] TbwyETTNY/Darío/51fOQNCQzOflToqQChnqI6nj09vVRecAQQa2SoAwCHjUuzY5k3YqvoAE3zmTcIkHWd [file] vM60gDUE65bn/bfslfmKT+GOngc8qtjOLCk0FPcRi+RWWD68N7/HAj1pbl824NMA/lWCsrfcO+H78+clinical unit educator [file] 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++3BukcQO5IhS7OdAaDtb5rDXV/IF6gvpl9g+ft3+snRcuCG33Y9w0xWrxpotObM4XLkwL0N1qTJT2 [file] KejNmyvDucg1EvuF98973zITTjSk5rbSPeExJVqvEuW+0Aa642zvqDc/+LWj5TLLgOkURccF/X/Vn+evp sales [file] marina sales and service supervisor/hrMKoTvchg2rgbGD48+1x9fSy/NuS9mG2oSzNx [file] 6oWvGZWbnv2Yk+CORRECTIONAL PROGRAM OFFICER/0qgsgy1kpfPhw+uDaHOGyQhLIYq7eu9t0f6oiAvH4pfbi1y++hTyj7pf6KIkEqR [file] evp sales+8VfxzPiAJ2rkluIpIbjJzrWksYsGvkjxEuWKCPJRnypbW8T3tQk8fETP1uTvBKNlMGcu9C+qMGZkS IpZdjFiGkOPqctpc+393596S00460E7VqGsT652efb Cx/Lomnc35q8TsNWwmJWyEvpKEYX3gk2NTOIQpSukR1Sulhhi9tyKKcPFsB6NN+PgMw7tn1noP8cBmFT O1ZIhBSHggBgtldsubh3T90USdAho9xcJDeeSZyKtHn7afz8iEIidhjLfMPADwth+97OI4Kf+byFTCwn YfNIzXIBroxzzWNH0c9q02RwLIZopIa/cB7yXhfNVt 8XGJsc1o793cG1AX3rLTZ0K++xvJhpiLfp/r4cf+ppOPOvyIXsk+xa+HV97aOl4BRt3eovApFFyc4sYP aA1VuEojlMssoXrWpxenz3ZUS/yQ3qcErgfpgf3tK5q9rkhTGK/FZ17AZpdGdivhj3Imey9cj/6V6JVw MMlJTVrs0GYUMzsngczp+DHFIU+AlVkSHStsemXneq VbD/aovDJ+hWcBRGfQrsSbEXcrd8Ch6Z69jLhWHlHKAr7Cv/UGNt1JUftIrNTt4LGRTD6ntZncAoEF5j G2S/ztKrgGQajrR3nUbiulOofVnzZWgIXRqOAT/XnlKbyyMr57ftuhEW/qVpPOUk7Pp3HiRHm2ZqOGfi 91B7cr0OOHe0Tp8EcNElqlhdwHJTx3r30LGaE9Mqzf mMhWxQT43io2Xs+avilez+R0L3unPfjwdCa8g00JWGMZHTyisBT/sihnDB3+1r0sf//Imq7f/D/eAGpQWZO7 [file] tm62nlEVtg5IYOZClRJylJuvKidCySChoYdal1ExehhUuDlCoFZzi+hSkv8zlHyX5PO0D25g1V2Y+brewer helper [file] zMrvfxy64xnBMy2j9+Sheet Rock Installer+/kuiKMjbqk1DKiC81k/nci22SqDB/OIdmxwhoWCTwMRVvdg5mJTSn9r+rG6 [file] clinical unit educator/1IuvaaHUWhFdSOj/W1iwb+4fdXGhI+xpE4ttxgeswW4wTu4SsF9A+nQszCLne1pMem7rwH5bgr/L7 [file] [facility]/m88+YJG25+FXiazWHFVslFO4PZW+GVVBt2 hpsd0TFQZO4wOGPe2swru1ottPxs8HuORLuBwFj0OmCdtK7GxIu5SXlw7LNqTw02Ppsblvij+XtGyX+R KX/boXIyignp4p8RGia+52V4co55f14XeqlDAcfAhrsKHGYClgokcTjPTGwnJmsiXf5ijO95jes9KEOA okCx4Haw88b3asNQmzItyq5AZ5n/zEXzxtj76cVJEl yZPbK0OVDGnTMhsuPng5X8zhfcCf6gOZR+VgwdgcbTgg8KnyCYRwVlG/r7K1ykKpgAL9nPd1EEwPMtN5 qd91WLxWW3Qvo3cKsjHGxLAnAhZbCZK/peuaI/yu3B3EHHz4zlYnMHPPlZMSk3D2zdHi8eS+8DGgn3xf sHCtOkUker8Vt54B1wgi9NB3o6otsCA1VinbVq/Aq9 y48so6Zr3MEkhIWfRysBV/PRsOkgBfkCWOhJGHy9iYUslarRy8PvPnYKWwekO48/6ONBzpuLQyDCzH6S QxmrA5Ap+95b3f03KnXdLT4EL+YQ6O1EH/sYAG2ggRW4rXSWatjw3309mzoAwA1ml8gv0yFllO0ODTo5 /YUqOWVeeetxgn8eqzngKAUoYFE1BTN59F28FvLzIi 673DpVWm2OFGh43/7rRROqJvfjL1MsC/V0TcJQiEgwjOQ20+mcAx+mPDYUaU/zup39v4n5z57v5yx/ST wBqUUJIAbPPh4fir3KYLBWjxsYeh7/17mynMz/bVtSmsXWm34EdvRjyLV5zXvBJJym+HKB5qQGQ6ou6+ UeNekK24CpT/V3zwbRqp/aButx/oGbAT30vCVwia1k ajTemyL89ks0qbUro52jNtRRkAJsTw9mI+p1ieE2GUqjGMOWYc2872kzclcjiHayWpf1p0J7mNhvkO5j o/lBiag3SFcgpLnj6FoKj6DaQWHrlpPUHA0vfifkJ0Z8q/PIzbXYVp5FfOw2j7bY+Teodora/2xlMkizxLVO [file] BpCMYFCDKOnhqyTKj74KbC+shine worker/pTjhOmWN/pVpGY7XX+EOZxyYdDYoVJyLJMfgOWF239Ge73V5e61Z [file] MEAL TEMPERER+GBaJGMCwYnCMeLgoUyyzyYrnq+QbqF5RxgukWC [file] fvyVE8A5OCasqXvQwU40vAowzIzVjff9Yx98UOlbfshvadaKaMkz7GCli07zjg36WrbXwnR+W6Fg/afternoon nanny [file] Brand Communications Manager+/BPn5OIDXZIMjKNZkXHfdfCtbjKIQwcdsR9NcZ [file] /TPIXPStHtYlcKAwldoTekwQgrIj4HVSU1NT/IazeE0seHgT+IDoCTogqd9lvvTS/GMA7zXHzL6h/Maria Esther [file] lrlMV0JyMGYtSv1R1Ls0ayUFqB8mDUDIQa/SUMjMGeu7EaegNP2hjPVSFYawNTZxE+4RDBMGMwm/HERBICIDE SERVICE SALES REPRESENTATIVE/ [file] N0poNjNfan/7f/55/ydz7z//EBXuQ8xoklGfXd5YJ5be+vM5eK2p+Uf3NaY+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+Etmi4SMxwSlVheffe wYct4fG0gawE0kfpkAokn30hnOUuuhl5h7Uus3mdXRsdN05+StW8u9pi2RaZLDtkUBcpDdHshsJmHo5P wBU7UqjP/vwkSBYG0kXLbk5wpk1Wc4c2BGVhTKS8Mu 5D7rnFoAcRcmyMPDnWzNnKv36FbeF8sK0bvdKsmapwhktPAlC24JXUpTjraAoM4XRSPT0MrxJZlV0Nsp 3nG7JR4+LwEfVhjYcg/Io/c9LjxMn6npyNwue8EivI7WanetBXr77Zbh2ioDeIxJYs9xRk9BNKngvnVR hJGPd+ddfeTAkxQViEwdxv39ppP6SG9p0/J2T93z/v WCL7kjO+I+gTHh7P+3+Qh+8doXcgyPPwLW+0nVfzKtRgai2Vyhsyg/zVjXI3PltqDx7OGcRr4N66Tiu0 yaMb/qY/5cDgO/8m/KxaJQ43Q0tQiacTJURP+xQoyTV451nzstExK/Q8Y5UFaAJfVDXjt84SIu4046jx ePzvlULkWSqTHPOuFKfsH39CxgYq08Jlj3QmFtSeYz QDoWf5sBc61jgBDH3J8tsP7F5Q+STsz0z9Zprx1iyc7esUuzJaxiqaXx2MyyndfoPWnpJ1gohODgrRnj JnXxmF28Jx1YV/FzcGrDbHwjUrePpqmR5hX6tPU2Jri3w0lQ55zKbkBJmCAx/ypHWPjjYQEOUR7Ai2RZ ppEDtk9iJo7zh/VIa4+4em5JGO05a1bxHNxWE4m9ff 980Xc10+Pt0gAqxc8/4WAGn2jiBX84pAZn+u60P3/CgkTHu9Q4vSMnqGMVZsiHTq3lgVmgvRf+RHmH7v tvUT5EyUyFaz7un2uF+UqwigOrAeu7FD2vPGpnZbdOLgfkxqsEbBytgaV/8VFRGPogkNd+gkYH43QzSP qdiCVMLN8acBcW24vMoZ56k/i81tiHPbvb7K6Tobnj KWgrDtB8ysX5X9xL0K98fBriP8/ZLXrjiNAebChyJq58aTi7yCBW3bEcUxjXikxrtNlZ3AIkzYXiuYRM yCAEc2mRFoP/lq0jP0pDp3KzwNNkNQ0kZSBHImNVJ0UQYfQw85D3/cXCQmf51DnJOoy2NDfcTQRHyMjb XXvhzrkqdjYB3cZX5/nIA0McWjiY1s64Qo0GT5//clinical unit educator [file] JF+beii9FgG4VcL5gb7MtxvFp1irBxmpMA58wy1+imxceVv+clinical unit educator/xAXTIhaDKtk6oDrMLmmBBSpXcE1VF [file] ICAgICAgICAgICAgICAgICAgICAgICAgICAgICAgICAgICAgICAgICAgICAgICAgICAgICAgICAgICAg ICAgICAgICAgICAgICAgICAgICAgICANCiAgICAgIC AgICAgICAgICAgICAgICAgICAgICAgICAgICAgICAgICAgICAgICAgICAgICAgICAgICAgICAgICAgIC AgICAgICAgICAgICAgICAgICAgICAgICAgICAgICAgICANCiAgICAgICAgICAgICAgICAgICAgICAgIC AgICAgICAgICAgICAgICAgICAgICAgICAgICAgICAg ICAgICAgICAgICAgICAgICAgICAgICAgICAgICAgICAgICAgICAgICAgICANCiAgICAgICAgICAgICAg ICAgICAgICAgICAgICAgICAgICAgICAgICAgICAgICAgICAgICAgICAgICAgICAgICAgICAgICAgICAg ICAgICAgICAgICAgICAgICAgICAgICAgICANCiAgIC AgICAgICAgICAgICAgICAgICAgICAgICAgICAgICAgICAgICAgICAgICAgICAgICAgICAgICAgICAgIC AgICAgICAgICAgICAgICAgICAgICAgICAgICAgICAgICAgICANCiAgICAgICAgICAgICAgICAgICAgIC AgICAgICAgICAgICAgICAgICAgICAgICAgICAgICAg ICAgICAgICAgICAgICAgICAgICAgICAgICAgICAgICAgICAgICAgICAgICAgICANCiAgICAgICAgICAg ICAgICAgICAgICAgICAgICAgICAgICAgICAgICAgICAgICAgICAgICAgICAgICAgICAgICAgICAgICAg ICAgICAgICAgICAgICAgICAgICAgICAgICAgICANCi AgICAgICAgICAgICAgICAgICAgICAgICAgICAgICAgICAgICAgICAgICAgICAgICAgICAgICAgICAgIC AgICAgICAgICAgICAgICAgICAgICAgICAgICAgICAgICAgICAgICANCiAgICAgICAgICAgICAgICAgIC AgICAgICAgICAgICAgICAgICAgICAgICAgICAgICAg ICAgICAgICAgICAgICAgICAgICAgICAgICAgICAgICAgICAgICAgICAgICAgICAgICANCiAgICAgICAg ICAgICAgICAgICAgICAgICAgICAgICAgICAgICAgICAgICAgICAgICAgICAgICAgICAgICAgICAgICAg ICAgICAgICAgICAgICAgICAgICAgICAgICAgICAgIC ANCjw/iKUxR7ehzJEbawG0Q6qzLy2FIn2VAE0au5JtTJVaEBzeclRrQwkQQvBoNQNjYabTFgx5MXvjMY 1XlAYzX0QqW9OsVPkwMG1TELZxLNFvxSIjPVTrZSFbBaM3PXLcDGrpCU9JlHZzEKijEGUzHXXnYnNsXX IgOSAwIFIgMTEgMCBSIDEzIDAgUiAxNSAwIFIgMTcg TXIXIT4PBrFvW4NucR40DSaCIz1+TAojzkItXqcBHzJ8ZWBai4WqVYt9VS4TCWOyCzxav5PiRhqvKBLZ GSqlOY8RFWJ2KVL0WIJdQe7BGAEhC463xoGkCT3AHe1QFyWsZA0pby8ZNazlOYTqGeiCNjw2TJmxQA1D bVKhNHsXf32jgLp7lnMxePMCBJYkdXNzbqAYIVNdIr HhwVSiVB9SOSU0YJOwInseTbMpYZUeNScnKHNOLYwQPyKmA0Hhy8HoNlM4RJLpZcCeVHjwJQKcHpY8TO 77zHafEZ7LPLSkUWXoMJ08JKF4ZEVzVp7KUv7ZTfBrRU0mwy4MJglrOOBtIqvVDwe7QOpwWW1EmNJgV1 FqlLJxg7wYZfBnV2RRXEG2ZLTjAu9JLHGkYpWgITRh UCwhQF2uKUYtBYEIxHhzwmZ0KS7RKS0qwoMvXH0TRdUuMv6vGs9WJzWaU3KmB2BlUVMzZCKYJKisSX4U BRqhYT0fHO7Im8GHaBFmwM1vzb0RXYBxOUQzAwwccy3KRbkvA7A4cOcdZKYbSasmVIFCIMghBJ5TRNWw CUV7MRWqFdVrJZCBOcZhY35bRO1PG9Nqy25kYcH0HN OuFnLdLTjjTI52qUjqenGgqGHxlJpyDP4UGq0+DQplbmRvYmoNCnhyZWYNCjAgNDANCjAwMDAwMDAwMD JrEaO3FwQqIf6GCNYpXSKpXSNoFdNoSVOaCKMoARskIXH6XDQ6JOXvVUEaXPXdED6EBkEeYYZgCZW3QV YqOTKgOIFjnq1NNAUzWZRtPVC3MvYjCDKwOEYcWPov QMVlTCUmCoD5ZBMzZNEfVV0ITxQnXKBkFAT4UoNpJBIrSSQqlr6GHMLaDRVhMGA5LFSkYGXqAZYjUDzk XHOnWBN5FDm9JYYqOATjME9BXeYdUCIhTTV1AwndXKJyRTWxay4UTOAmRPEnPcA0NhKbWCCxJQQcUMsi AQCaKPI5VIy9IRXgHNUkGL9HEqVrKTMqVFx7FNYuNR CaQRTsru5IRREyHZUwQXN4LJPfUXFxSGKeRItxBIHiAYL2OnjvFWIoAWJvBF2TLiVfQFJtAAN5CEudZX PgDQNtrz4GHUIuLRIfWLqkGYWiTHFzBZJbTUxcKHLgDTVvHMA0WAWxVFCyYK0ISqAaHGZdOBN2McKuFN YeGVRahv4HJBRzAXZkFgS8PwOnOFQsEPQrVRlkEUTc GUJcPWe0YMAhINGwSQ4JZiStHIJwDPYcBnCtODZiVFPzyr0RNKCvSLYzZYRfLRQoJNSwTIXpBVzuNLAw JFC9ZnKjRNCnAYQhDS8KKiZdYOTqMVF2DlLvKBIoSNNajy1CDNHoPMPjRrzbPqMfJOZjJCWtQVccLKZt VLI2GCQ3GQFzMAQsPM4XYpMxHHVkTawxPqLpAXZrPB Vclm1TOSYqPMEtFiC2JeDsIUYcBUCeCPfrMCRzYRQ2SpB9ZWEkUUUfWH8XYxMuKDScAlC3GZHyLCJsIY Pipv3JXHYqWsB3JlX0FUBnNYSuYVAdMMpjIFCcPMp3VWB3KROrPYLmHY6XVeUqHMM3QjZ0CZebJLAgGW Cwra5CHXUtOod4JEYyLBKeARDpVPAzWOiyJIY8OKC9 TAK5IIWfKHUeVL9PXkHkHEKtGPD0OQDqDSYxXYLqre8QXPJmIFI1CPh2BGHiLIImIBOtEQaaRAD7ZCC1 WWEcBIHcXRIxDE1PZhWlYKHtMTLqRQlbAJZwOPHxpw3LpJKhuRvgua7PSEaAZr7XrZhcWIJuWDwzSe3n iKVcXIUrNGXTFc0TobNfBUSlKJZHXModMICvIDa8OS AwAwQ3JuUdMHVlUyY8PSSqEdIjUUH5SKhdLfL6WwE5UGVfWjPnUhFwXjGrMjR3ZVZ6IkM9VnHeVMHaTX ZjNTk+RU1pWFk+Yt6Wg5DqbuB0dmLkQRe7ZMC6XSOgQMboDQYQFt1J ID Date Data Source [id number] 11/06/2019 04:13:31 PM EDT [facility] Name Value Range Interpretation Code Description Data Anjelica rce(s) Supporting Document(s) [facility] UOLMCm6xSuTJWbZy91/EDNagQKFvb6PvUYwqDNf2IAbjFLWxF3ZaCWK4mI8kDCF4CYcAYzBcObNaRHN7 lbm [file] f9PETqQ8WdVBH8WAU7E0WbMcu8GrwhNZ6rWLBZHb4+NWiixTBktZfnZBPPHvb8NKoXOcZbSN1EEYq= ID Date Data Source [id number] 11/06/2019 04:19:09 PM EDT [facility] Value Range Interpretation Code Description Data Anjelica rce(s) Supporting Document(s) Glucose [Mass/volume] in Capillary blood by Glucometer 179 mg/dL 70- 140 [facility] ID Date Data Source [id number] 11/06/2019 03:58:46 PM EDT [facility] Name Value Range Interpretation Code Description Data Anjelica rce(s) Supporting Document(s) [facility] WABDDn0nFlQFBdQo33/NXAxtODLsm7RiNLjqFNh7CUifOTNeU6OsVGE2jN5kFGF8UOiDWrBkLmYjXMU6 lbm [file] AgICAgICAgICAgICAgICAgICAgICAgICAgICAgICAg ICAgICAgICAgICAgICAgICAgICAgICAgICAgICAgICAgICAgICAgICAgICAgICAgICAgICAgICANCiAg ICAgICAgICAgICAgICAgICAgICAgICAgICAgICAgICAgICAgICAgICAgICAgICAgICAgICAgICAgICAg ICAgICAgICAgICAgICAgICAgICAgICAgICAgICAgIC AgICAgICANCiAgICAgICAgICAgICAgICAgICAgICAgICAgICAgICAgICAgICAgICAgICAgICAgICAgIC AgICAgICAgICAgICAgICAgICAgICAgICAgICAgICAgICAgICAgICAgICAgICAgICANCiAgICAgICAgIC AgICAgICAgICAgICAgICAgICAgICAgICAgICAgICAg ICAgICAgICAgICAgICAgICAgICAgICAgICAgICAgICAgICAgICAgICAgICAgICAgICAgICAgICAgICAN CiAgICAgICAgICAgICAgICAgICAgICAgICAgICAgICAgICAgICAgICAgICAgICAgICAgICAgICAgICAg ICAgICAgICAgICAgICAgICAgICAgICAgICAgICAgIC AgICAgICAgICANCiAgICAgICAgICAgICAgICAgICAgICAgICAgICAgICAgICAgICAgICAgICAgICAgIC AgICAgICAgICAgICAgICAgICAgICAgICAgICAgICAgICAgICAgICAgICAgICAgICAgICANCiAgICAgIC AgICAgICAgICAgICAgICAgICAgICAgICAgICAgICAg ICAgICAgICAgICAgICAgICAgICAgICAgICAgICAgICAgICAgICAgICAgICAgICAgICAgICAgICAgICAg ICANCiAgICAgICAgICAgICAgICAgICAgICAgICAgICAgICAgICAgICAgICAgICAgICAgICAgICAgICAg ICAgICAgICAgICAgICAgICAgICAgICAgICAgICAgIC AgICAgICAgICAgICANCiAgICAgICAgICAgICAgICAgICAgICAgICAgICAgICAgICAgICAgICAgICAgIC AgICAgICAgICAgICAgICAgICAgICAgICAgICAgICAgICAgICAgICAgICAgICAgICAgICAgICANCiAgIC AgICAgICAgICAgICAgICAgICAgICAgICAgICAgICAg ICAgICAgICAgICAgICAgICAgICAgICAgICAgICAgICAgICAgICAgICAgICAgICAgICAgICAgICAgICAg ICAgICANCjw/aQAyV4wlsAAifcP0Y1fmPo8HUf5MWR8wj3BhPAEoGQmvgeObHavKIyCwTZEhEwfXRac5 WAtgIA3RlBTsI2MhQ3JtREahRA1MESBaIAVvwVIqTW LvMLHnHeI3EKYeEMqiCX7IbTFkLVoiBSYvLTEqRV9MCZTtX835csJvLP3HXw7SKkVcPD6mwg3ERNMmWW WfNqmZMmp1AXqhYF1YyQVdbHZeDSRdFCYSGnYfJ6oyh5ArTJTaOVIYXLviLS7Id2WoeQUfGNn+Pg0KZW 0kg4AfZGkzDGCtKL8qea9AZKzDHuSqW3RvbLzbXMGp bpA1sYUgNRQ1HRErGRLbc3UwATVTgI4fuchxTcFmSPTlUG7gPS6xGKYnQHHiMsJ3DIRVIA5YDHPsIVOu eEZvUKKhCISBPV3DSIulZON4YDYpqpNbkMAtFUufZW9YIEUbazHzBCRlCJRRYRd+Kx5WVK7wi3BdAVrh NfDjGE1zgo0COGaIYcErB7G0dNQrY7W0OGuxKr7PJC GlUNCdLYPgDNFSMKpvOP3ZMA5jzmY5RI3MmFQxZHSdDPWmeAZzCYy4D82jfIFiCFrqMD6HEPN+Sherry+Pg 7HIKAwYYCoLMAySfXnTHFQDuVvI2KyQ2PZu0AhW5YwWN71vFpbptZuVLxoVK8SIW7sJYYqEBPCTF3VyH ZphM4rtpVcNTYxASQTDvXbS58hgENkLRFqMKZhEHPp Ah1XWNFzP7LnfvSpaQlqkeVbPIBgRVVWYB5VTIsglbTepYTwuRvqKO80hYghGG6RSk0RIkFkSM2fjx4O wZRiNb3KSZGnKg4MJXOeUTHhCYNuWSQ5BVSxNqFmGZmkGFVfCVGvAKI6UVToRDSjKN3HRwJwNKPwMJQ7 GJVtXFHiOKTmdy1QISFpCCHkZmI9VjKdNHGsQJKwXO oxXCMtDNIeDSO2JQZdLMEqTI5DPwNkZKUiLFV6WNBdNLPfBXBuun4OHTTeRBUuTuJ4LdCiLVPkIRGuNF juCFEzBGYoWZA7PYScOFJwGJ9JFpGjIGWtMFEtLYAcKYSbQSUgsq9TBVMwNFHlPqM2UBVxWXZfRVLfUT mcAMArEVR6SyD8HXGrNFHvIQ6FTpZjVZArDPM3BMMp CRKbGYAjqy8FFLHrDSCrQWhsCTNqXDUcPKDuETnfTGDeCOI1HIUpYSQqJQLfPX9FCbPfCGLbJDP6YiUa XWUaOAItbm5RVJKeFLKsBzS9OELvCTFcNWMwGViuVFLsXMG9Fvs2YWBlKVFjZA6MLvJtWYrnQHQBCsz8 YZzhJ9o3WXVgZn9WA9Fqq9XhAYCePMETSSquHN7lnp SrYIYhQx0TG0qIJxdlGFy1TEZdD6BmISLtOjE6XHAvSlN9VmQwIft0Fdo0Jr9yVNH8KHh9XXF1WKQgZs WjRExpDAAuWWseRrZcQOebGJY4ZpKcPB4RMt4RThJ8SQO2dLYqEd4HPjHcRZ8CMTZSB7OZJn== ID Date Data Source [id number] 11/06/2019 03:18:25 PM EDT [facility] Name Value Range Interpretation Code Description Data Anjelica rce(s) Supporting Document(s) Consultation [facility] DRRAOc4zGaYBSmZs82/ICGfpPRMnh2GgOZjhBPt7APzxEPVlD7BrWCH2mQ4fOKW4GGpTZnApCsXnYDH8 lbm MbGmySZnWcMQBwKptFBoSbYIoiZxsnnACvUV6IyUM2ZPQoH98cNDDyAAAjU6MxQWO8UoJ+Od1YLQObpK DrDP3KZwpC5Z3qk5d4Ni1eCK+DgAWKtGhsfX/4eDrhVUHwF9kIHUtcP3RYHF+aA2Xj593OZ1+OOFt4N1 iYFJVlsFx8ZWfM8avHe+M1FUWPy40196uwO9t74/fW /6qxpqK4Kojz0//mtZdFYXNZ+fc5JZ1L/vnH5C4Qj6Xf4G3Srz3vZ9+v3Gaem5djcGatyfw86YNqbPlm VOh4N8wof2/C6o03usH56n31pc069OHIisOI5m8ma95o/7iD854eds0JijtDybHW+9ITBA+OTAaIY3ml MXgt3wGNaj3jZlu4wpncTeSbLXF+rEw/Q00GfK9JeK mTf3KoSkpjL2ebUCHm/fGNechTQ04N6Ov7O4098hWzGVGkfsKl2piHE4++E49wm0yNd3B4EqOW5iaK9x KdNXEJ+cTjM0H9TS4aToZr9WCiJyeMahbUDMUM+zLtPEEK54bCffP/ybVLQ+y4TIofoB5Xa87eODzvlo lVF0eH6PafkALrsw6n0B7Ppkt4ycIHfnKWk/GUJJk1 ezpw82R8AbrAUnzseqfWliixGTenStkn5QVwOspvelutLYfwOLC9nokwCqAbrbzcQPhhGoxjudXxw963 [file] J3D8NDymTCZsSeL8ZPO7VkNrOG1UBf7JAfF7LQH6nDXeZu1AJTQ5UwHKVkYpGH3HOQl= ID Date Data Source [id number] 11/06/2019 02:29:42 PM EDT [facility] Name Value Range Interpretation Code Description Data Anjelica rce(s) Supporting Document(s) History and Physical [facility] QVGSUx6oIbQDPgDn62/KBVcyEVSss0FdVPuzDHp0DMpyMZTbN4SxHMG4mD6hXOT9MVsPGgNaSoTwVLI8 lbm [file] AgICAgICAgICAgICAgICAgICAgICAgICAgICAgICAg ICAgICAgICAgICAgICAgICAgICAgICAgICAgICAgICAgICAgICAgICAgICAgICAgICAgICAgICAgICAg DQogICAgICAgICAgICAgICAgICAgICAgICAgICAgICAgICAgICAgICAgICAgICAgICAgICAgICAgICAg ICAgICAgICAgICAgICAgICAgICAgICAgICAgICAgIC AgICAgICAgICAgDQogICAgICAgICAgICAgICAgICAgICAgICAgICAgICAgICAgICAgICAgICAgICAgIC AgICAgICAgICAgICAgICAgICAgICAgICAgICAgICAgICAgICAgICAgICAgICAgICAgICAgDQogICAgIC AgICAgICAgICAgICAgICAgICAgICAgICAgICAgICAg ICAgICAgICAgICAgICAgICAgICAgICAgICAgICAgICAgICAgICAgICAgICAgICAgICAgICAgICAgICAg ICAgDQogICAgICAgICAgICAgICAgICAgICAgICAgICAgICAgICAgICAgICAgICAgICAgICAgICAgICAg ICAgICAgICAgICAgICAgICAgICAgICAgICAgICAgIC AgICAgICAgICAgICAgDQogICAgICAgICAgICAgICAgICAgICAgICAgICAgICAgICAgICAgICAgICAgIC AgICAgICAgICAgICAgICAgICAgICAgICAgICAgICAgICAgICAgICAgICAgICAgICAgICAgICAgDQogIC AgICAgICAgICAgICAgICAgICAgICAgICAgICAgICAg ICAgICAgICAgICAgICAgICAgICAgICAgICAgICAgICAgICAgICAgICAgICAgICAgICAgICAgICAgICAg ICAgICAgDQogICAgICAgICAgICAgICAgICAgICAgICAgICAgICAgICAgICAgICAgICAgICAgICAgICAg ICAgICAgICAgICAgICAgICAgICAgICAgICAgICAgIC AgICAgICAgICAgICAgICAgDQogICAgICAgICAgICAgICAgICAgICAgICAgICAgICAgICAgICAgICAgIC AgICAgICAgICAgICAgICAgICAgICAgICAgICAgICAgICAgICAgICAgICAgICAgICAgICAgICAgICAgDQ ogICAgICAgICAgICAgICAgICAgICAgICAgICAgICAg ICAgICAgICAgICAgICAgICAgICAgICAgICAgICAgICAgICAgICAgICAgICAgICAgICAgICAgICAgICAg ILHoPYWfVBCfOSv1I9ewHTKhSQFxTZ9jHRa0Xg1+BDmDBuSfZBO0gjNnlU3EXG9il8IgBIrsEAXgj8Qq WIn7II4FFAHqTGhgCN3VAVknst4QQDArSHLlvXKAe6 rrLdRjAQM0RIXbYwsyTM0MLDNqG7wkmoPfGVXhJNTVEObzAZGWFSjmOEXMPZJdRJYnRwFdKaOjYZYvIU LpBTZGLSQ6KPFnBrPqKYPyLFSxXeIvRZURLOTcKKBwSoEjDGEqVFZiHtufNYOCFHL3YQGpZfFoTKEgBE LfJeAiTTCXSIJ6PKJcUiPbPwOeWHXxUI7TRANfZ305 bnQgMTcNCj4+HSfwizTbUapNYjZ3EPIqw1BtDSl0ZZ6TTBWdCnvrz7UaKHnyPTIAKBxgPG6VGXQ6CIT0 MNOuZg4OWSNjP467xuGxTB9DCx2MStGjIK3lav0BKFnjXQKaWwfQHwe5NTikGE7UwJExCCdEXtPjYejg S4VutgHbRZJyN4FclDItFZ7YVAY5NKHuPaZoWbKzTZ PcXOpwVXZDDZuPRtSaD2Nxm5KiZfD5BHLdWsGbIPelUDOxDlA8ZO65cAcmEU7GSKFhIMGxAU38RSV9HZ SpHi7MGb7VBnTtDO5aer8KMOvjDKMpYryCVoi4GRyfEK7DoVBjN6BzvKUfi1uZTmVjE4EGEAU0TKTqLr 7XCMFoKjYjJPXzVRwmFT7zMPEbNIHFfOduqmX8YK8E XN7vscLhZH8YOqFyDj1sJm9NDhNeH6RdG3FrWYToLEMXQQmiZA2UKUhtFH2tEM3Ej0UNpGWbyL8zzw1J LMLyAQZjJylnpr4NHdtbW2R8gIapBYWvDHdmJGQRGKvtXF6ZZCKjHLK0VDX3EwJtOFUOTwMzR34sLX8P E3Upo37rHoG4MBGsEtCdKKyjSK70yUrylxUttFMfyH ndFX5KYw2+GNddqhMlBgrMIuzpSMFZZiLrUtVFJaVhRUSxUBGyQQUnVbD3YwWaIu5ZCNBtHXOcNPVyOf BeMUCcSDDeFPcbHLMzAXw0IaQjMYQjBZEzTL8CRbLuAKLzSyn0GTSjYYEjUPRwxm1LPJOrUPOpNKK4Ng AfNSNoARJsYJpjTVVnNAYkQrA9JBXfVXGhCB5QRdHw RDEzIHG8DvIdALXpQDUfco6CNZAaVHCeQiR1COFsSQUbZUYeCNzjFQNtEGI6Gex9EMMvFVSzPQ1DFkCb LODbEGr8HYVcKARfHHGsff9FXDIzZOVaTPM2SnLlDFSvKKWeOCnlLUHrVUUeXHTkLTMbNZTmXT5FQwXw YZStDQP6KvnpIQSpRLMzav1KZRDrWDJqTOM3USPqGD EaZKTyZCjgRAPiEFD2UPT9CZCfZNGkVP6TJyApROEaOGl4AMUoNBAlJXNmab4FQDSgCAFpBpd5MEOhST SgSTSjQDyzNPYbVSJ5DyMvWWPkFRQtRL0AYpWhJEQmBId3XnQkMLCtOGSdhx6VCAEaMYPvAvG7FQQaTP SoURHtSYfrUNUdUUAzLoh6NMTsJPXpXX1WVhJqCAJm WwJ1FBVbFTGtPMQyuj4RRYQoUSPlDcs5JbGsLEYlURWpBNzpJVCnPAThRnd4RSMnDXEiDV8MIkKdBXFu DqE8FPMrGBYzMHDphu9FFXSyMPYiNgg6JuMrXFWeEQNaRBlqTBDyYNS3OZxpMEFxNRPsAR4JXaYyGEOi XPB8EhvcUVSoZCPrun4DPPHlEEG4DbJuQIOkKDRqCK EfABrrVGOiOEM6JYv8TSDqDJVqKO8LGwEqDIFwVKi5DTYaTIUaVWPbng7UTNFwEWW8QTsrNRZxAHNxHY MtLKadONCtWBUkPTKmJBJdXEIdIH4ZSvElSISsVSA9FTOvWUPpXVOura8TQQPyGRN1DYXxIFElXOIdVM QnUYonVOTeFAH9RJI0SVRwGVEySH5YMaVtJBGxMHl5 RuKnMTJuWBKqow3KJMSuZQK0RGX7WBTpYGXvBLYkJDpuJHXjUAL7MAo3RRJlDRJlRO5EJvXzVLVgKFt3 NeOaCKVvGSGkvq2BEALrYJU4DTzkUlOiFDLjDGBnUUvqFMTgUBW8QIQ0ZSTsGKKgPT4TTkBkQVUpLdS2 OuMzIVOzYOOlqk1OQSUyPLY7UUO4OuReJZMdAOLlAY kfOWYxCZBjInJ7VGPaIFIaAP8PGaSwARFrAkQxKcZlMHBxMEHplv4FSLArSXC9PkIiTMBmOQDmNZQeHL ppCWFcVPEyZdU5REOnZAFmAX9FIxNsDHKxHwJ4DEobBIKpFPFcyr4YHDFsPNG2FZEkWvAcJBDoPQJxHQ pvODJyZXk6MBB2BBGcGTNgBG4BFuOvDYZhCoY9PZJd CDUyUVOqkd0MCQSdQOK4PNcgCHKcSECaZVXiVDbqWPRoMHq8GAT0KYCaFRKuUO6BYpSuVCNhDwRkDgNo LGKdBMNdir0EPPHjHLL4BpReZPFaKHTgBAUyUEzuEUVjJOc6HxQ3KITiQJJnXL4OTrEsBSDfMmovQLWa IRSkXAIlnc8FEZKlZQN2DHV4FFGuSGSuUSVgFUjmZQ UzVVm9EHUwAJHwEQPfZH8CAmQwKSwoYBJJJqm0BCljJ1r0HRZ5GY3YR9Trk3FuAObuZTRQMRceAS4qmx OzACJuTb5UD5sZYzk0IsNcHMAoHFMnAfL2FoOdBTy8BFD3XyYxRYgmYAoqFm4qXPm1XRBiKLV3EJU7ST JyW2K6TkWrPxqePnBzJXPzBYJsFbQlCQ2DIe0RUnI5PIM2hZExLm4BWof6MDZUVrNtSL0PGUw= ID Date Data Source [id number] 11/06/2019 02:29:07 PM EDT [facility] Name Value Range Interpretation Code Description Data Anjelica rce(s) Supporting Document(s) History and Physical [facility] UWZRMk8vXeYNKxCz25/YXHooMUSdw6KlJAutBHs9UHnxHTVcF5HvRHU2yN6kGOO9TFbPOiUcClAkOLZ4 lbm [file] AgICAgICAgICAgICAgICAgICAgICAgICAgICAgICAgICAgICAgICAgICAgICAgICAgICAgICAgICAgIC AgICAgICAgDQogICAgICAgICAgICAgICAgICAgICAg ICAgICAgICAgICAgICAgICAgICAgICAgICAgICAgICAgICAgICAgICAgICAgICAgICAgICAgICAgICAg ICAgICAgICAgICAgICAgICAgDQogICAgICAgICAgICAgICAgICAgICAgICAgICAgICAgICAgICAgICAg ICAgICAgICAgICAgICAgICAgICAgICAgICAgICAgIC AgICAgICAgICAgICAgICAgICAgICAgICAgICAgDQogICAgICAgICAgICAgICAgICAgICAgICAgICAgIC AgICAgICAgICAgICAgICAgICAgICAgICAgICAgICAgICAgICAgICAgICAgICAgICAgICAgICAgICAgIC AgICAgICAgICAgDQogICAgICAgICAgICAgICAgICAg ICAgICAgICAgICAgICAgICAgICAgICAgICAgICAgICAgICAgICAgICAgICAgICAgICAgICAgICAgICAg ICAgICAgICAgICAgICAgICAgICAgDQogICAgICAgICAgICAgICAgICAgICAgICAgICAgICAgICAgICAg ICAgICAgICAgICAgICAgICAgICAgICAgICAgICAgIC AgICAgICAgICAgICAgICAgICAgICAgICAgICAgICAgDQogICAgICAgICAgICAgICAgICAgICAgICAgIC AgICAgICAgICAgICAgICAgICAgICAgICAgICAgICAgICAgICAgICAgICAgICAgICAgICAgICAgICAgIC AgICAgICAgICAgICAgDQogICAgICAgICAgICAgICAg ICAgICAgICAgICAgICAgICAgICAgICAgICAgICAgICAgICAgICAgICAgICAgICAgICAgICAgICAgICAg ICAgICAgICAgICAgICAgICAgICAgICAgDQogICAgICAgICAgICAgICAgICAgICAgICAgICAgICAgICAg ICAgICAgICAgICAgICAgICAgICAgICAgICAgICAgIC AgICAgICAgICAgICAgICAgICAgICAgICAgICAgICAgICAgDQogICAgICAgICAgICAgICAgICAgICAgIC AgICAgICAgICAgICAgICAgICAgICAgICAgICAgICAgICAgICAgICAgICAgICAgICAgICAgICAgICAgIC GyWPCmWIMbJIFzBBFmSDXoUHa8K1jlSYDtBFGqBA1r KUa1Rw1+OYjOXoPqBMD5evVysR2JGS9dj8YxJYspMXEwe8ElZZy1LN7ZXWGsXDroJK3ATWvwjg6UVOIx VGXthKUEj4caXbAcLUC0UEVxLhywVL4JWNAmT6yktkLdNAPsPKQBTFqeAROXFLhtTPLDTNQwYPAgTwUv OSaxPI5Pj6LigOK0SKh+Ok6XOR1nh5KaXBvgCJHiQP 0zum3ZVQfKHiDaR5JwgkA9DHPeNHBoPn8NHOIjSOTueYDuLyVzGDWQQcSmY8ChhA95CZLPNo6+DQplbm OeFhnWXwNaOMAyu5WeXKz9HM0KTPXiNXu1fMHgGLGWCPO7ZKNoi37urqEFn61xECdnSVWpXOAvNI0fNa 5yUFNnFFR3UiH8JFYFYH0SPWHcVMRdhXBlVYYeOOGS UU8KIUkxHLU5HJHftyEvrMNiNZbkKP3TWENbpnGyAzZcAYCHCXw+Du2BLU1og0EwFRdsIiGrSF6wef2L FIyQVjTjM9U6bJEyY4Q0GDjmTc9METWzXZDoNmceAFNGBPmcQO7LIF0kftM8QH0EeHFoHGOvPIJfaFOn GQf5T27aaSNuXJmnWK9PEKH+Sherry+Zi3NTUXxPLXeDT XyKaLyBQBPLnGdD2JmO6AYg1PvA6FrHV62dQiutgIbTAojVV9XKL4yQMIeUFESEI2PlBBhlE4zdkNeVT PtAEDNDsDmI39zsVKuJYTbWRDpXCIrSp3JLTPeW6IdrfEnzVwrgkIeMXNtWFXPQS8NMQtihiBqnXSyyE cjOI56rThqVM5WUq1WAxUzTC0uta9XmDLrPl4IZENy CV6FPOVtSNQpVZYlNOE8KYAnKkTiGHtcTKOjLCZvEJI0JACmNVPmTK4DEiJiTMPvXos1YXdlDIRgGUTv ss4LUCDfHMPhTABjLXLyMSObLRJpECpqHPFpXFIeNDR7KOZeAQOjZJ9GNeHbTBRtDWMrWpZpIMYmGYIc zh1PWWIlRAGfKmT2FVUzNRTmPFWwGGzfDTJdSIB2JR N3XOLtSWElVR6EScKsITBjVHVgNwccTFCiULCuxn1GYCFfWLOiNON0ERYwLKRlHHZrCSrgIDVbQER4Tg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 Interpretation Code Description Data Anjelica rce(s) Supporting Document(s) [facility] [id number] [facility] [file] [id number] ID Date Data Source [id number] 11/04/2019 06:58:40 PM EDT [facility] Name Value Range Interpretation Code Description Data Anjelica rce(s) Supporting Document(s) pH of Arterial blood 7.30 7.38-7.44 L [facility] Carbon dioxide [Partial pressure] in Arterial blood 47 mmHg 35-40 H [facility] Oxygen [Partial pressure] in Arterial blood 48 mmHg 95-100 LL [facility] Base excess standard in Arterial blood by calculation [facility] Oxygen saturation Calculated from oxygen partial press ure in Arterial blood 79 % 94-100 L [facility] Lactate [Moles/volume] in Arterial blood 2.6 mmol/L 0.5-2.2 H [facility] Bicarbonate [Moles/volume] in Arterial blood 24 mmol/L [facility] ID Date Data Source [id number] 09/03/2019 04:14:54 PM EDT [facility] Measurements & CalculationsHeight: 61 inches 154.94 cm Weight: 171.2 pounds 77.82 kg Body Mass Index (BMI): 32.46BMI Interpretation: ObeseBody Surface Area (BSA): 1.77Weight Management Education Done (Nutrition/Physical Activity)Vital SignsTemperature: 98.3F oral Pulse Rate: 59 beats/minuteRespiratory Rate: 20 respirations/minuteBlood Pressure: 145/87 right arm sitting automaticO2 Saturation: 99% room airVital Signs performed by: Sorin Mcintosh MA, September 03, 2019 4:24 PMInitial Intake [facility] [place]Smoking, Tobacco, Vaping or Smoke Exposure StatusSmoke Status: current every day smokerTobacco Use: YesAdv to Quit: YesDo you vape? NoPassive Smoke Exposure: NoHealthcare HistorySince your last office visit...Have you been admitted to the hospital? NoHave you been to an emergency room (ER) or urgent care clinic? NoHave you seen another healthcare provider? NoHave you seen a dentist? NoIntake performed by: Sorin Mcintosh MA, September 03, 2019 4:17 PMRate Your HealthIn general, would you say your health is? FairPain AssessmentAre you currently having any pain which... You would like your provider to address? No Affects your activity level? NoDepression Screening - PHQ-2Over the last two weeks, have you... Had little interest or pleasure in doing things? Not at all Been feeling down, depressed, or hopeless? Not at all PHQ-2 Score: 0Infectious Disease / Travel ScreeningRecent travel for you or any close contacts? NoHave you had any close contact with anyone diagnosed with or under investigation for COVID-19 (coronavirus)? NoHave you had any of the following symptoms recently? Fever? NoRespiratory symptoms: cough, cold, congestion, shortness of breath, difficulty breathing? YesPain AssessmentLocation: headache Screening, Brief Intervention, & Referral to Treatment (SBIRT)Pre-Screening Questions How many times have you have 4 or more drinks in a day? 0How many times have you used an illegal drug or used a prescription medication for a non-medical reason? 0Performed by: Sorin Mcintosh MA, September 03, 2019 4:19 PMPatient History Medical History:AsthmaAnxiety DisorderDiabetes, Type 2G E R DHypertensionMemory loss/confussionSeizuresUTIsAneurysmSurgical History:Breast Surgery: right lumpectomyleft elbow cyst removal 2009 Left shoulderFamily History:Family History of AsthmaFH Breast CancerFH Heart DiseaseFH Lung/Respiratory DiseaseFH Other CancerFamily History of Cervical CancerFH Lung CancerFH Ovarian CancerSocial/Personal History: Advised to Quit/Tobacco Education: YesChief ComplaintURI sypmtoms History of Present Illness (HPI)I, Sorin Mcintosh MA, am scribing for, and in the presence of, Tuan Byrne, DO pt has headaches a lways. pt states the headaches started and she found out she has an annyrsym. she had a stroke and then she started having seizures. about four years ago. pt also has fibromyalgia. pt has head cold sinus coughing. pt does have bronchitis. pts phlegm is clear. pt is advised to take theraflu. pt does complain of earaches. DO will manipulate pt's neck to try and take care of the headache and to take pressure off her neck. pt does get vertigo and states she is always off balance. pt states her headache is gone. will go over labs from april sugars were a little high. kidneys were fine, liver is good. cholesterol was a little high. pt states she takes no medications for her diabetes or thyroid or cholesterol. pt has URI. Problem ReviewProblem List was reviewed and/or updated during this visit.Medication Reconciliation & ReviewMedication List was reviewed and/or updated during this visit, including review of any ifsx-lzl-evyhgfk medications, herbal therapies, and/or supplements.Allergy ReviewAllergy List was reviewed and/or updated during this visit.Adult Preventive CareScreening Tobacco Screening: Smoking Status: current every day smoker (09/03/2019) Tobacco Use: Currently (09/03/2019) Advised to Quit: Yes (09/03/2019)Labs/Meds/Other Counseling-Nutrition and Physical Activity:BMI Interpretation: Obese (09/03/2019) Counseling: Done (09/03/2019) Physical Activity: Done (09/03/2019)Review of Systems General: Complains of dizziness, headache. Ears/Nose/Throat: Complains of earache, nasal congestion, runny nose, sore throat. Cardiovascular: Denies chest pain, palpitations, feeling faint, trouble breathing w/exertion, SOB upon lying down, SOB at night, peripheral edema, elevated blood pressure, decreased heart rate. Respiratory: Complains of cough. Musculoskeletal: Complains of muscle aches. Physical ExamGeneral Appearance: feels sickRespiratory, Auscultation: sl rhonchiRespiratory, Effort: no intercostal retractions or use of accessory musclesCardiovascular, Auscultation: S1, S2 audible; no murmur, rub, or gallop; RRRGait & Station: normalBack: spasm C2 on rightCranial Nerves: II - XII grossly intactOrientation: oriented to time, place, and personMood & Affect: no depression, anxiety, or agitationJudgment & Insight: intactRate Your HealthIn general, would you say your health is? FairAssessment & Plan Problems:Added: Acute 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 (OKW08-I25.81) Assessment: OTC cold medsAssessed:Bilateral headache (ICD-784.0) ([id number]) Assessment: OMT done w/reliefAssessment not Saved Bilateral headache ([id number]): Comment OnlyOMT done w/reliefMedications:ALLERGY 10 MG ORAL TABLETLASIX 20 MG ORAL TABLETZYRTEC ALLERGY 10 MG ORAL TABLETALL DAY ALLERGY 10 MG ORAL CAPSULECLONAZEPAM 1 MG ORAL TABLETALL DAY ALLERGY 10 MG ORAL CAPSULEALBUTEROL SULFATE (2.5 MG/3ML) 0.083% INHALATION NEBULIZATION SOLUTIONIPRATROPIUM- ALBUTEROL 0.5-2.5 (3) MG/3ML INHALATION SOLUTIONPEPCID 40 MG ORAL TABLETVENTOLIN HFA 108 (90 BASE) MCG/ACT INHALATION AEROSOL SOLUTIONMedication Changes:Removed:CEFUROXIME AXETIL 500 MG ORAL TABLET-take 1 tab po q12h for 10 days, MAGNESIUM OXIDE 400 MG ORAL CAPSULE-take one tab po qd, FLUCONAZOLE 150 MG ORAL TABLET-One po times one., FLUCONAZOLE 150 MG ORAL TABLET-One po times one today., SYNTHROID 50 MCG ORAL TABLET-One po tablet by mouth every day, FUROSEMIDE 20 MG TABLET-TAKE ONE TABLET BY MOUTH ONCE DAILY, [facility] OMEPRAZOLE 20 MG ORAL TABLET DELAYED RELEASE-One tablet by mouth every dayAllergies:* SEASONAL (Mild)Orders:Adult - Ofc Vst, EST, Level III [CPT-44856] Name Value Range Interpretation Code Description Data Anjelica rce(s) Supporting Document(s) Procedure Social History Code Duration Value Status Description Data Source(s ) Alcohol intake 01/07/2020 12:00:00 AM EDT Current non-d bari of alcohol (finding) completed Current non-drinker of alcohol (finding) [facility] Tobacco use and exposure 01/07/2020 12:00:00 AM EDT Never used co mpleted Never used [facility] Cigarette pack-years 01/07/2020 12:00:00 AM EDT UNK [facility] Cigarettes smoked current (pack per day) - Reported 01/07/20 20 12:00:00 AM EDT UNK [facility] Smoking 01/07/2020 12:00:00 AM EDT Current every day smoker co mpleted Current every day smoker [facility] Vital Signs ID Date Data Source UNK Name Value Range Interpretation Code Description Data Source(s) Body weight 2960 [oz_av] 2960 [oz_av] [facility] ([facility]) Systolic blood pressure 149 mm[Hg] 149 mm[Hg] A [facility]) Body mass index (BMI) [Ratio] 35 kg/m2 35 kg/ m2 TOD ([facility]) Body height 61 [in_i] 61 [in_i] TOD ([facility]) Diastolic blood pressure 71 mm[Hg] 71 mm[Hg] TOD ([facility]) Body weight 2988.8 [oz_av] 2988.8 [oz_av] ATHEN A ([facility]) Systolic blood pressure 121 mm[Hg] 121 mm[Hg] A [facility]) Body mass index (BMI) [Ratio] 35.3 kg/m2 35.3 k g/m2 TOD ([facility]) Body height 61 [in_i] 61 [in_i] TOD ([facility]) Diastolic blood pressure 55 mm[Hg] 55 mm[Hg] TOD ([facility]) Body weight 2988.8 [oz_av] 2988.8 [oz_av] ATHEN A ([facility]) Systolic blood pressure 121 mm[Hg] 121 mm[Hg] A THENA ([facility]) Body mass index (BMI) [Ratio] 35.3 kg/m2 35.3 k g/m2 TOD ([facility]) Body height 61 [in_i] 61 [in_i] TOD ([facility]) Diastolic blood pressure 55 mm[Hg] 55 mm[Hg] TOD ([facility]) Body height 61 [in_i] 61 [in_i] TOD ([facility]) Body height 61 [in_i] 61 [in_i] TOD ([facility]) Body height 61 [in_i] 61 [in_i] TOD ([facility]) Body height 61 [in_i] 61 [in_i] TOD ([facility]) Body height 61 [in_i] 61 [in_i] TOD ([facility]) Body height 61 [in_i] 61 [in_i] TOD ([facility]) Body height 61 [in_i] 61 [in_i] TOD ([facility]) Body height 61 [in_i] 61 [in_i] TOD ([facility]) Body height 61 [in_i] 61 [in_i] TOD ([facility]) Body height 61 [in_i] 61 [in_i] TOD ([facility]) Body height 61 [in_i] 61 [in_i] TOD ([facility]) Body height 61 [in_i] 61 [in_i] TOD ([facility]) Body height 61 [in_i] 61 [in_i] TOD ([facility]) Body height 61 [in_i] 61 [in_i] TOD ([facility]) Body weight 2786 [oz_av] 2786 [oz_av] [facility] ([facility]) Systolic blood pressure 168 mm[Hg] 168 mm[Hg] A THENA ([facility]) Body mass index (BMI) [Ratio] 32.9 kg/m2 32.9 k g/m2 TOD ([facility]) Body height 61 [in_i] 61 [in_i] TOD ([facility]) Diastolic blood pressure 87 mm[Hg] 87 mm[Hg] TOD ([facility]) Body weight 2786 [oz_av] 2786 [oz_av] TOD ([facility]) Systolic blood pressure 168 mm[Hg] [facility] Body mass index (BMI) [Ratio] 32.9 kg/m2 32.9 k g/m2 TOD ([facility]) Body height 61 [in_i] 61 [in_i] TOD ([facility]) Diastolic blood pressure 87 mm[Hg] 87 mm[Hg] TOD ([facility]) Body weight 2786 [oz_av] 2786 [oz_av] TOD ([facility]) Systolic blood pressure 168 mm[Hg] 168 mm[facility]Hg[facility] Body mass index (BMI) [Ratio] 32.9 kg/m2 32.9 k g/m2 TOD ([facility]) Body height 61 [in_i] 61 [in_i] TOD ([facility]) Diastolic blood pressure 87 mm[Hg] 87 mm[Hg] TOD ([facility]) Body weight 2786 [oz_av] 2786 [oz_av] TOD ([facility]) Systolic blood pressure 168 mm[Hg] 168 mm[facility]Hg[facility] Body mass index (BMI) [Ratio] 32.9 kg/m2 32.9 k g/m2 TOD ([facility]) Body height 61 [in_i] 61 [in_i] TOD ([facility]) Diastolic blood pressure 87 mm[Hg] 87 mm[Hg] TOD ([facility]) Body weight 2786 [oz_av] 2786 [oz_av] TOD ([facility]) Systolic blood pressure 168 mm[Hg] 168 mm[Hg] A THENA ([facility]) Body mass index (BMI) [Ratio] 32.9 kg/m2 32.9 k g/m2 TOD ([facility]) Body height 61 [in_i] 61 [in_i] TOD ([facility]) Diastolic blood pressure 87 mm[Hg] 87 mm[Hg] TOD ([facility]) Body weight 2786 [oz_av] 2786 [oz_av] TOD ([facility]) Systolic blood pressure 168 mm[Hg] 168 mm[Hg[facility] Body mass index (BMI) [Ratio] 32.9 kg/m2 32.9 k g/m2 TOD ([facility]) Body height 61 [in_i] 61 [in_i] TOD ([facility]) Diastolic blood pressure 87 mm[Hg] 87 mm[Hg] TOD ([facility]) Body weight 2786 [oz_av] 2786 [oz_av] TOD ([facility]) Systolic blood pressure 168 mm[Hg] 168 mm[Hg] A THENA ([facility]) Body mass index (BMI) [Ratio] 32.9 kg/m2 32.9 k g/m2 TOD ([facility]) Body height 61 [in_i] 61 [in_i] TOD ([facility]) Diastolic blood pressure 87 mm[Hg] 87 mm[Hg] TOD ([facility]) Body weight 2786 [oz_av] 2786 [oz_av] TOD ([facility]) Systolic blood pressure 168 mm[Hg] 168 mm[facility]Hg[facility] Body mass index (BMI) [Ratio] 32.9 kg/m2 32.9 k g/m2 TOD ([facility]) Body height 61 [in_i] 61 [in_i] TOD ([facility]) Diastolic blood pressure 87 mm[Hg] 87 mm[Hg] TOD ([facility]) Body mass index (BMI) [Ratio] 33.2 kg/m2 33.2 k g/m2 MED[facility] ([facility]) Body weight 170.12 [lb_av] 170.12 [lb_av] MEDEN T ([facility]) Body height 60 [in_i] 60 [in_i] [facility] ([facility]) 5'0" Body temperature 96.5 [degF] 96.5 [degF] [facility] ([facility]) Body weight 2806.4 [oz_av] 2806.4 [oz_av] ATHEN A ([facility]) Systolic blood pressure 136 mm[Hg] 136 mm[Hg] A THENA ([facility]) Body mass index (BMI) [Ratio] 33.26 kg/m2 33.26 kg/m2 TOD ([facility]) Body height 61 [in_i] 61 [in_i] TOD ([facility]) Diastolic blood pressure 84 mm[Hg] 84 mm[Hg] TOD ([facility]) Body weight 2806.4 [oz_av] 2806.4 [oz_av] ATHEN A ([facility]) Systolic blood pressure 136 mm[Hg] 136 mm[Hg] A [place] ([facility]) Body mass index (BMI) [Ratio] 33.26 kg/m2 33.26 kg/m2 TOD ([facility]) Body height 61 [in_i] 61 [in_i] TOD ([facility]) Diastolic blood pressure 84 mm[Hg] 84 mm[Hg] TOD ([facility]) Body weight 2806.4 [oz_av] 2806.4 [oz_av] ATHEN A ([facility]) Systolic blood pressure 136 mm[Hg] 136 mm[Hg] A THENA ([facility]) Body height 61 [in_i] 61 [in_i] TOD ([facility]) Diastolic blood pressure 84 mm[Hg] 84 mm[Hg] TOD ([facility]) Body weight 2806.4 [oz_av] 2806.4 [oz_av] ATHEN A ([facility]) Systolic blood pressure 136 mm[Hg] 136 mm[facility]Hg[facility] Body height 61 [in_i] 61 [in_i] TOD ([facility]) Diastolic blood pressure 84 mm[Hg] 84 mm[Hg] TOD ([facility]) Body weight 2806.4 [oz_av] 2806.4 [oz_av] ATHEN A ([facility]) Systolic blood pressure 136 mm[Hg] 136 mm[facility]Hg[facility] Body height 61 [in_i] 61 [in_i] TOD ([facility]) Diastolic blood pressure 84 mm[Hg] 84 mm[Hg] TOD ([facility]) Body weight 2806.4 [oz_av] 2806.4 [oz_av] ATHEN A ([facility]) Systolic blood pressure 136 mm[Hg] 136 mm[Hg[facility] Body height 61 [in_i] 61 [in_i] TOD ([facility]) Diastolic blood pressure 84 mm[Hg] 84 mm[Hg] TOD ([facility]) Body weight 2806.4 [oz_av] 2806.4 [oz_av] ATHEN A ([facility]) Systolic blood pressure 136 mm[Hg] 136 mm[Hg] [facility] Body height 61 [in_i] 61 [in_i] TOD ([facility]) Body weight 2806.4 [oz_av] 2806.4 [oz_av] ATHEN A ([facility]) Systolic blood pressure 136 mm[Hg] 136 mm[Hg] A THENA ([facility]) Body height 61 [in_i] 61 [in_i] TOD ([facility]) Diastolic blood pressure 84 mm[Hg] 84 mm[Hg] TOD ([facility]) Diastolic blood pressure 84 mm[Hg] 84 mm[Hg] TOD ([facility]) Body weight 2704 [oz_av] 2704 [oz_av] [facility] ([facility]) Systolic blood pressure 141 mm[Hg] 141 mm[Hg] A [facility] ([facility]) Body mass index (BMI) [Ratio] 32.05 kg/m2 32.05 kg/m2 TOD ([facility]) Body height 61 [in_i] 61 [in_i] TOD ([facility]) Diastolic blood pressure 81 mm[Hg] 81 mm[Hg] TOD ([facility]) Body weight 2704 [oz_av] 2704 [oz_av] [facility] ([facility]) Systolic blood pressure 141 mm[Hg] 141 mm[Hg[facility] Body mass index (BMI) [Ratio] 32.05 kg/m2 32.05 kg/m2 TOD ([facility]) Body height 61 [in_i] 61 [in_i] TOD ([facility]) Diastolic blood pressure 81 mm[Hg] 81 mm[Hg] TOD ([facility]) Body weight 2704 [oz_av] 2704 [oz_av] [facility] ([facility]) Systolic blood pressure 141 mm[Hg] 141 mm[Hg] A [facility] ([facility]) Body height 61 [in_i] 61 [in_i] TOD ([facility]) Diastolic blood pressure 81 mm[Hg] 81 mm[Hg] TOD ([facility]) Body weight 2704 [oz_av] 2704 [oz_av] [facility] ([facility]) Systolic blood pressure 141 mm[Hg] 141 mm[Hg] [facility] Body height 61 [in_i] 61 [in_i] TOD ([facility]) Diastolic blood pressure 81 mm[Hg] 81 mm[Hg] TOD ([facility]) Body weight 2704 [oz_av] 2704 [oz_av] [facility] ([facility]) Systolic blood pressure 141 mm[Hg] 141 mm[Hg] [facility] Body height 61 [in_i] 61 [in_i] TOD ([facility]) Diastolic blood pressure 81 mm[Hg] 81 mm[Hg] TOD ([facility]) Body weight 2704 [oz_av] 2704 [oz_av] [facility] ([facility]) Systolic blood pressure 141 mm[Hg] 141 mm[Hg] [facility] Body height 61 [in_i] 61 [in_i] TOD ([facility]) Diastolic blood pressure 81 mm[Hg] 81 mm[Hg] TOD ([facility]) Body weight 2704 [oz_av] 2704 [oz_av] TOD ([facility]) Systolic blood pressure 141 mm[Hg] 141 mm[Hg] [facility] Body height 61 [in_i] 61 [in_i] TOD ([facility]) Diastolic blood pressure 81 mm[Hg] 81 mm[Hg] TOD ([facility]) Body weight 2704 [oz_av] 2704 [oz_av] [facility] ([facility]) Systolic blood pressure 141 mm[Hg] 141 mm[Hg] [facility] Body height 61 [in_i] 61 [in_i] TOD ([facility]) Diastolic blood pressure 81 mm[Hg] 81 mm[Hg] TOD ([facility]) Body weight 2724 [oz_av] 2724 [oz_av] TOD ([facility]) Systolic blood pressure 115 mm[Hg] 115 mm[Hg] [facility] Body mass index (BMI) [Ratio] 32.28 kg/m2 32.28 kg/m2 TOD ([facility]) Body height 61 [in_i] 61 [in_i] TOD ([facility]) Diastolic blood pressure 79 mm[Hg] 79 mm[Hg] TOD ([facility]) Body weight 2724 [oz_av] 2724 [oz_av] TOD ([facility]) Systolic blood pressure 115 mm[Hg] 115 mm[Hg] [facility] Body mass index (BMI) [Ratio] 32.28 kg/m2 32.28 kg/m2 TOD ([facility]) Body height 61 [in_i] 61 [in_i] TOD ([facility]) Diastolic blood pressure 79 mm[Hg] 79 mm[Hg] TOD ([facility]) Body weight 2724 [oz_av] 2724 [oz_av] [facility] ([facility]) Systolic blood pressure 115 mm[Hg] 115 mm[Hg] A [facility] ([facility]) Body height 61 [in_i] 61 [in_i] TOD ([facility]) Diastolic blood pressure 79 mm[Hg] 79 mm[Hg] TOD ([facility]) Body weight 2724 [oz_av] 2724 [oz_av] OTD ([facility]) Systolic blood pressure 115 mm[Hg] 115 mm[Hg] A [facility] ([facility]) Body height 61 [in_i] 61 [in_i] TOD ([facility]) Diastolic blood pressure 79 mm[Hg] 79 mm[Hg] TOD ([facility]) Body weight 2724 [oz_av] 2724 [oz_av] [facility] ([facility]) Systolic blood pressure 115 mm[Hg] 115 mm[Hg] A [facility] ([facility]) Body height 61 [in_i] 61 [in_i] TOD ([facility]) Diastolic blood pressure 79 mm[Hg] 79 mm[Hg] TOD ([facility]) Body weight 2724 [oz_av] 2724 [oz_av] [facility] ([facility]) Systolic blood pressure 115 mm[Hg] 115 mm[Hg[facility] Body height 61 [in_i] 61 [in_i] TOD ([facility]) Diastolic blood pressure 79 mm[Hg] 79 mm[Hg] TOD ([facility]) Body weight 2724 [oz_av] 2724 [oz_av] [facility] ([facility]) Systolic blood pressure 115 mm[Hg] 115 mm[Hg] [facility] Body height 61 [in_i] 61 [in_i] TOD ([facility]) Diastolic blood pressure 79 mm[Hg] 79 mm[Hg] TOD ([facility]) Body weight 2724 [oz_av] 2724 [oz_av] [facility] ([facility]) Systolic blood pressure 115 mm[Hg] 115 mm[Hg] [facility] Body height 61 [in_i] 61 [in_i] TOD ([facility]) Diastolic blood pressure 79 mm[Hg] 79 mm[Hg] TOD ([facility]) Body weight 2718.4 [oz_av] 2718.4 [oz_av] ATHEN A ([facility]) Systolic blood pressure 149 mm[Hg] 149 mm[Hg] A [facility] ([facility]) Body mass index (BMI) [Ratio] 32.22 kg/m2 32.22 kg/m2 TOD ([facility]) Body height 61 [in_i] 61 [in_i] TOD ([facility]) Diastolic blood pressure 82 mm[Hg] 82 mm[Hg] TOD ([facility]) Body weight 2718.4 [oz_av] 2718.4 [oz_av] ATHEN A ([facility]) Systolic blood pressure 149 mm[Hg] 149 mm[Hg] A [facility] ([facility]) Body mass index (BMI) [Ratio] 32.22 kg/m2 32.22 kg/m2 TOD ([facility]) Body height 61 [in_i] 61 [in_i] TOD ([facility]) Diastolic blood pressure 82 mm[Hg] 82 mm[Hg] TOD ([facility]) Body weight 2718.4 [oz_av] 2718.4 [oz_av] ATHEN A ([facility]) Systolic blood pressure 149 mm[Hg] 149 mm[Hg[facility] Body height 61 [in_i] 61 [in_i] TOD ([facility]) Diastolic blood pressure 82 mm[Hg] 82 mm[Hg] TOD ([facility]) Body weight 2718.4 [oz_av] 2718.4 [oz_av] ATHEN A ([facility]) Systolic blood pressure 149 mm[Hg] 149 mm[Hg] A [facility] ([facility]) Body height 61 [in_i] 61 [in_i] TOD ([facility]) Diastolic blood pressure 82 mm[Hg] 82 mm[Hg] TOD ([facility]) Body height 61 [in_i] 61 [in_i] TOD ([facility]) Diastolic blood pressure 82 mm[Hg] 82 mm[Hg] TOD ([facility]) Body weight 2718.4 [oz_av] 2718.4 [oz_av] ATHEN A ([facility]) Systolic blood pressure 149 mm[Hg] 149 mm[facility]Hg[facility] Body height 61 [in_i] 61 [in_i] TOD ([facility]) Diastolic blood pressure 82 mm[Hg] 82 mm[Hg] TOD ([facility]) Body weight 2718.4 [oz_av] 2718.4 [oz_av] ATHEN A ([facility]) Systolic blood pressure 149 mm[Hg] 149 mm[Hg] A [facility] ([facility]) Body height 61 [in_i] 61 [in_i] TOD ([facility]) Diastolic blood pressure 82 mm[Hg] 82 mm[Hg] TOD ([facility]) Body weight 2718.4 [oz_av] 2718.4 [oz_av] ATHEN A ([facility]) Systolic blood pressure 149 mm[Hg] 149 [facility]Hg[facility] Body height 61 [in_i] 61 [in_i] TOD ([facility]) Diastolic blood pressure 82 mm[Hg] 82 mm[Hg] TOD ([facility]) Body weight 2718.4 [oz_av] 2718.4 [oz_av] ATHEN A ([facility]) Systolic blood pressure 149 mm[Hg] 149 [facility]Hg[facility] Body weight 2739.2 [oz_av] 2739.2 [oz_av] ATHEN A ([facility]) Systolic blood pressure 145 mm[Hg] 145 mm[Hg] A [facility] ([facility]) Body mass index (BMI) [Ratio] 32.46 kg/m2 32.46 kg/m2 TOD ([facility]) Body height 61 [in_i] 61 [in_i] TOD ([facility]) Diastolic blood pressure 87 mm[Hg] 87 mm[Hg] TOD ([facility]) Body weight 2739.2 [oz_av] 2739.2 [oz_av] ATHEN A ([facility]) Systolic blood pressure 145 mm[Hg] 145 mm[Hg[facility] Body mass index (BMI) [Ratio] 32.46 kg/m2 32.46 kg/m2 TOD ([facility]) Body height 61 [in_i] 61 [in_i] TOD ([facility]) Diastolic blood pressure 87 mm[Hg] 87 mm[Hg] TOD ([facility]) Body weight 2739.2 [oz_av] 2739.2 [oz_av] ATHEN A ([facility]) Systolic blood pressure 145 mm[Hg] 145 mm[Hg] A [facility] ([facility]) Body height 61 [in_i] 61 [in_i] TOD ([facility]) Diastolic blood pressure 87 mm[Hg] 87 mm[Hg] TOD ([facility]) Body weight 2739.2 [oz_av] 2739.2 [oz_av] ATHEN A ([facility]) Systolic blood pressure 145 mm[Hg] 145 mm[Hg] A [facility] ([facility]) Body height 61 [in_i] 61 [in_i] TOD ([facility]) Diastolic blood pressure 87 mm[Hg] 87 mm[Hg] TOD ([facility]) Body weight 2739.2 [oz_av] 2739.2 [oz_av] ATHEN A ([facility]) Systolic blood pressure 145 mm[Hg] 145 mm[Hg[facility] Body height 61 [in_i] 61 [in_i] TOD ([facility]) Diastolic blood pressure 87 mm[Hg] 87 mm[Hg] TOD ([facility]) Body weight 2739.2 [oz_av] 2739.2 [oz_av] ATHEN A ([facility]) Systolic blood pressure 145 mm[Hg] 145 mm[Hg[facility] Body height 61 [in_i] 61 [in_i] TOD ([facility]) Diastolic blood pressure 87 mm[Hg] 87 mm[Hg] TOD ([facility]) Body weight 2739.2 [oz_av] 2739.2 [oz_av] A[place] A ([facility]) Systolic blood pressure 145 mm[Hg] 145 mm[Hg] [facility] Body height 61 [in_i] 61 [in_i] TOD ([facility]) Diastolic blood pressure 87 mm[Hg] 87 mm[Hg] TOD ([facility]) Body weight 2739.2 [oz_av] 2739.2 [oz_av] ATHYOSHI A ([facility]) Systolic blood pressure 145 mm[Hg] 145 mm[Hg] [facility] Body height 61 [in_i] 61 [in_i] TOD ([facility]) Diastolic blood pressure 87 mm[Hg] 87 mm[Hg] TOD ([facility]) ID Date Data Source [id number] 12/02/2019 09:56:50 AM EDT [facility] Name Value Range Interpretation Code Description Data Source(s) WEIGHT RECORDED 161.16 lb 161.16 lb [facility] Body height Measured 62.99 in 62.99 in [facility] Patient Treatment Plan of Care Planned Activity Planned Date Details Description Data Source (s) Armodafinil 150 MG 01/01/2020 01:00:00 AM EDT [facility]) Lasix 20 MG 12/22/2019 01:00:00 AM EDT [facility] ([facility]) Cetirizine HCl 10 MG 12/22/2019 01:00:00 AM EDT [facility]) Ventolin HFA 108 (90 Base) MCG/ACT 12/22/2019 01:00:00 AM EDT [facility]) clonazePAM 1 MG 12/22/2019 01:00:00 AM EDT [facility] ([facility]) oxyCODONE HCl 5 MG 12/22/2019 01:00:00 AM EDT [facility] ([facility]) SEROquel 25 MG 12/22/2019 01:00:00 AM EDT [facility] ([facility]) Multi Adult Gummies 12/22/2019 01:00:00 AM EDT [facility] ([facility]) TraMADol HCl 50 MG 12/22/2019 01:00:00 AM EDT [facility] ([facility]) Metoprolol Tartrate 25 MG 12/22/2019 01:00:00 AM EDT [facility] ([facility]) Basaglar KwikPen 100 UNIT/ML 12/22/2019 01:00:00 AM EDT [facility] ([facility]) CarBAMazepine 100 MG/5ML 12/22/2019 01:00:00 AM EDT [facility] ([facility]) Lidoderm 5 % 12/22/2019 01:00:00 AM EDT [facility] ([facility]) Modafinil 100 MG 12/22/2019 01:00:00 AM EDT [facility] ([facility]) Pepcid 20 MG 12/22/2019 01:00:00 AM EDT N [facility] ([facility]) Ipratropium-Albuterol 0.5-2.5 (3) MG/3ML 12/22/2019 01:00:00 AM EDT [facility] ([facility]) pantoprazole 2 mg/mL PO oral suspension 12/01/2019 12:00:[address] [facility] sennosides, HALF-WAY 35.2 MG/ML Oral Solution 12/01/2019 12:00:[address] [facility] Metoprolol Tartrate 25 MG Oral Tablet 12/01/2019 12:00:[address] [facility] Insulin Glargine 100 UNT/ML Injectable Solution 12/01/2019 12:00:[address] [facility] Carbamazepine 20 MG/ML Oral Suspension 12/01/2019 12:00:[address] [facility] quetiapine 25 MG Oral Tablet 12/01/2019 12:00:[address] [facility] Oxycodone Hydrochloride 5 MG Oral Tablet 12/01/2019 12:00:[address] [facility] modafinil 100 MG Oral Tablet 12/01/2019 12:00:[address] [facility] Lidocaine 5 % External Patch (LIDODERM) 12/01/2019 12:00:[address] [facility] insulin lispro 100 units/mL SC injection LOW DOSE EATI NG INSULIN patients 12/01/2019 12:00:00 AM [facility] Tetrahydrocannabinol 5 MG Oral Capsule 12/01/2019 12:00:[address] [facility] COLLAGENASE 0.25 UNT/MG Topical Ointment 12/01/2019 12:00:[address] [facility] Glucose 0.4 MG/MG Oral Gel 11/19/2019 01:00:[address] [facility] Hydralazine Hydrochloride 20 MG/ML Injectable Solution 11/18/2019 12:43:43 AM [facility] ospital fentaNYL (SUBLIMAZE) 100 MCG/2ML (PF) injection 11/08/2019 10:32:[address] [facility] Bisacodyl 10 MG Rectal Suppository 11/08/2019 09:52:[address] [facility] Glucagon 1 MG Injection 11/05/2019 08:37:[address] [facility] fentaNYL (SUBLIMAZE) 50 mcg/mL NCA 11/04/2019 07:30:[address] [facility] 3 ML Insulin Lispro 100 UNT/ML Pen Injector [Humalog] 10/30/2017 12:00:00 AM [facility] Blood Glucose Monitoring Suppl (ONETOUCH VERIO) w/Sharon ce KIT 10/29/2017 12:00:00 AM [facility] Insulin Pen Needle (B-D ULTRAFINE III SHORT PEN) 31G X 8 MM MISC 10/29/2017 12:00:00 AM [facility] 3 ML Insulin Glargine 100 UNT/ML Pen Injector 10/29/2017 12:00:[address] [facility] Famotidine 20 MG Oral Tablet TOD ([facility]) d3 high potency 125 mcg (5000 ut) caps TOD ([facility]) cetirizine hydrochloride 10 MG Oral Tablet TOD ([facility]) Cefuroxime 500 MG Oral Tablet TOD ([facility]) Azithromycin 250 MG Oral Tablet TOD ([facility]) COLLAGENASE 0.25 UNT/MG Topical Ointment [Santyl] TOD ([facility]) pantoprazole 40 MG Delayed Release Oral Tablet TOD ([facility]) Omeprazole 20 MG Delayed Release Oral Capsule TOD ([facility]) Loratadine 10 MG Oral Tablet TOD ([facility]) Famotidine 20 MG Oral Tablet TOD ([facility]) d3 high potency 125 mcg (5000 ut) caps TOD ([facility]) cetirizine hydrochloride 10 MG Oral Tablet TOD ([facility]) Cefuroxime 500 MG Oral Tablet TOD ([facility]) Azithromycin 250 MG Oral Tablet TOD ([facility]) COLLAGENASE 0.25 UNT/MG Topical Ointment [Santyl] TOD ([facility]) pantoprazole 40 MG Delayed Release Oral Tablet TOD ([facility]) Omeprazole 20 MG Delayed Release Oral Capsule TOD ([facility]) Loratadine 10 MG Oral Tablet TOD ([facility]) Fluconazole 150 MG Oral Tablet TOD ([facility]) Famotidine 20 MG Oral Tablet TOD ([facility]) d3 high potency 125 mcg (5000 ut) caps TDO ([facility]) cetirizine hydrochloride 10 MG Oral Tablet TOD ([facility]) Cefuroxime 500 MG Oral Tablet TOD ([facility]) Azithromycin 250 MG Oral Tablet TOD ([facility]) COLLAGENASE 0.25 UNT/MG Topical Ointment [Santyl] TOD ([facility]) pantoprazole 40 MG Delayed Release Oral Tablet TOD ([facility]) Omeprazole 20 MG Delayed Release Oral Capsule TOD ([facility]) Loratadine 10 MG Oral Tablet TOD ([facility]) Fluconazole 150 MG Oral Tablet TOD ([facility]) Famotidine 20 MG Oral Tablet TOD ([facility]) d3 high potency 125 mcg (5000 ut) caps TOD ([facility]) cetirizine hydrochloride 10 MG Oral Tablet TOD ([facility]) Cefuroxime 500 MG Oral Tablet TOD ([facility]) Azithromycin 250 MG Oral Tablet TOD ([facility]) COLLAGENASE 0.25 UNT/MG Topical Ointment [Santyl] TOD ([facility]) pantoprazole 40 MG Delayed Release Oral Tablet TOD ([facility]) Omeprazole 20 MG Delayed Release Oral Capsule TOD ([facility]) Loratadine 10 MG Oral Tablet TOD ([facility]) Fluconazole 150 MG Oral Tablet TOD ([facility]) Famotidine 20 MG Oral Tablet TOD ([facility]) d3 high potency 125 mcg (5000 ut) caps TOD ([facility]) cetirizine hydrochloride 10 MG Oral Tablet TOD ([facility]) Cefuroxime 500 MG Oral Tablet TOD ([facility]) Azithromycin 250 MG Oral Tablet TOD ([facility]) Loratadine 10 MG Oral Tablet TOD ([facility]) Fluconazole 150 MG Oral Tablet TOD ([facility]) Famotidine 20 MG Oral Tablet TOD ([facility]) d3 high potency 125 mcg (5000 ut) caps TOD ([facility]) cetirizine hydrochloride 10 MG Oral Tablet TOD ([facility]) Cefuroxime 500 MG Oral Tablet TOD ([facility]) Azithromycin 250 MG Oral Tablet TOD ([facility]) COLLAGENASE 0.25 UNT/MG Topical Ointment [Santyl] TOD ([facility]) pantoprazole 40 MG Delayed Release Oral Tablet TOD ([facility]) Omeprazole 20 MG Delayed Release Oral Capsule TOD ([facility]) Loratadine 10 MG Oral Tablet TOD ([facility]) Fluconazole 150 MG Oral Tablet TOD ([facility]) Famotidine 20 MG Oral Tablet TOD ([facility]) d3 high potency 125 mcg (5000 ut) caps TOD ([facility]) cetirizine hydrochloride 10 MG Oral Tablet TOD ([facility]) Cefuroxime 500 MG Oral Tablet TOD ([facility]) Azithromycin 250 MG Oral Tablet TOD ([facility]) COLLAGENASE 0.25 UNT/MG Topical Ointment [Santyl] TOD ([facility]) pantoprazole 40 MG Delayed Release Oral Tablet TOD ([facility]) Omeprazole 20 MG Delayed Release Oral Capsule TOD ([facility]) Loratadine 10 MG Oral Tablet TOD ([facility]) Fluconazole 150 MG Oral Tablet TOD ([facility]) Famotidine 20 MG Oral Tablet TOD ([facility]) d3 high potency 125 mcg (5000 ut) caps TOD ([facility]) cetirizine hydrochloride 10 MG Oral Tablet TOD ([facility]) Cefuroxime 500 MG Oral Tablet TOD ([facility]) Azithromycin 250 MG Oral Tablet TOD ([facility]) COLLAGENASE 0.25 UNT/MG Topical Ointment [Santyl] TOD ([facility]) pantoprazole 40 MG Delayed Release Oral Tablet TOD ([facility]) Omeprazole 20 MG Delayed Release Oral Capsule TOD ([facility]) Loratadine 10 MG Oral Tablet TOD ([facility]) COLLAGENASE 0.25 UNT/MG Topical Ointment [Santyl] TOD ([facility]) pantoprazole 40 MG Delayed Release Oral Tablet TOD ([facility]) Omeprazole 20 MG Delayed Release Oral Capsule TOD ([facility]) Naproxen sodium 220 MG Oral Capsule [facility] Albuterol 0.833 MG/ML / Ipratropium [place] 0.167 MG/ML Inhalant So lution [facility] albuterol (PROVENTIL HFA;VENTOLIN HFA) 108 (90 BASE) MCG/ACT inhale r [facility] Famotidine 20 MG Oral Tablet [facility]
--- OUTSIDE RECORDS SUMMARY | 2020-08-06 20:40 | CCD ---
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 12/01/19 12:00:00 AM EDT 2 {patch} Transdermal active Place 2 pa tches onto the skin every 24 (twenty-four) hours [facility] insulin lispro 100 units/mL SC injection LOW DOSE EATI NG INSULIN patients [id number] 12/01/2019 12:00:00 AM EDT Subcutaneous aborted Patient Instructions: Please refer to Insulin Sliding Scale Instructions in the Discharge Instructions. [facility] quetiapine 25 MG Oral Tablet QUEtiapine Fumarate 25 MG Oral Tablet (SEROquel) QUEtiapine Fumarate 25 MG Oral Tablet (SEROquel) 12/01/2019 12:00:00 AM EDT 25 mg Oral active Take 1 tab let by mouth Three times daily as needed (agitation) [facility] Oxycodone Hydrochloride 5 MG Oral Tablet oxyCODONE HCl 5 MG Oral Tablet (ROXICODONE) oxyCODONE HCl 5 MG Oral Tablet (ROXICODONE) 12/01/2019 12:00:00 AM EDT 5 mg Oral active Take 1 t ablet by mouth every 8 (eight) hours as needed for up to 3 days, Max Daily Dose: 15 mg [facility] Tetrahydrocannabinol 5 MG Oral Capsule Dronabinol 5 MG Oral Capsule (MARINOL) Dronabinol 5 MG Oral Capsule (MARINOL) 12/01/2019 12:00:00 AM EDT 5 m g Oral active Take 1 capsule by mouth Two Times Daily , Max Daily Dose: 10 mg [facility] Insulin Glargine 100 UNT/ML Injectable S olution Insulin Glargine 100 UNIT/ML Subcutaneous Solution (LANTUS) Insulin Glargine 100 UNIT/ML Subcutaneou s Solution (LANTUS) 12/01/2019 12:00:00 AM EDT 10 U Subcutaneous active Inject 10 Units into the skin every morning [facility] Carbamazepine 20 MG/ML Oral Suspension c arBAMazepine 100 MG/5ML Oral Suspension (TEGRETOL) carBAMazepine 100 MG/5ML Oral Suspension (TEGRETOL) 12:00:00 AM EDT 100 mg Oral active Take 5 mLs by mouth Two Times Daily [facility] COLLAGENASE 0.25 UNT/MG Topical Ointment Collagenase 250 UNIT/GM External Ointment (SANTYL) Collagenase 250 UNIT/GM External Ointment (SANTYL) 12:00:00 AM EDT active Apply to left lower leg and left lateral ankle per wound care [facility] sennosides, CARE HOME 35.2 MG/ML Oral Solution Senna 176 MG/ 5ML Oral Syrup (SENOKOT) Senna 176 MG/5ML Oral Syrup (SENOKOT) 12/01/2019 12:00:00 AM EDT 10 m L Oral active Take 10 mLs by mouth nightly [facility] pantoprazole 2 mg/mL PO oral suspension 12/01/2019 12:00:0 0 AM EDT 40 mg Oral active Take 20 mLs by mouth daily [facility] Oxycodone Hydrochloride 5 MG Oral Tablet oxyCODONE [...] only) require Pain Service consultation and approval.
[facility] Medication administered onsite ondansetron (ZOFRAN) injection 4 mg [id number] 11/28/2019 09:18:4 8 PM EDT 4 mg Intravenous active 4 mg, In travenous, Every 8 hours PRN, Nausea, Vomiting, Starting 6/19/20 at 2118, For 30 days [facility] Medication administered onsite Tetrahydrocannabinol 2.5 MG Oral Capsule dronabinol (M ARINOL) capsule 5 mg dronabinol (MARINOL) capsule 5 mg 11/28/2019 09:00:00 AM EDT 5 mg Oral active 5 mg, Oral, 2 Times Daily, First dose (after last modification) on Sun11/28/19 at 0900, For 10 doses [facility] Medication administered onsite Ceftriaxone 1000 MG Injection cefTRIAXone (ROCEPHIN) i nfusion 1 g (premix) cefTRIAXone (ROCEPHIN) infusion 1 g (premix) 11/28/2019 08:45:00 AM EDT 1 g Intravenous completed 1 g, Intraven ous, at 100 mL/hr, Every 24 hours, First dose on Sun11/28/19 at 0845, For 3 days
Discouraged Uses: Empiric treatment of post-surgical meningitis (ceftazidime preferred)
[facility] Medication administered onsite Carbamazepine 20 MG/ML Oral Suspension c arBAMazepine (TEGRETOL) 100 MG/5ML suspension 100 mg carBAMazepine (TEGRETOL) 100 MG/5ML suspension 100 mg 11/27/2019 09:00:00 PM EDT 100 mg Oral active 100 mg, Oral, 2 Times Daily, First dose on Lily 11/27/19 at 2100, For 30 days [facility] Medication administered onsite Furosemide 20 MG Oral Tablet furosemide (LASIX) tablet 20 mg furosemide (LASIX) tablet 20 mg 11/27/2019 09:00:00 AM EDT 20 mg Oral compl eted 20 mg, Oral, Daily Standard, First dose (after last modification) on Lily 11/27/19 at 0900, For 3 days [facility] Medication administered onsite Acetaminophen 32 MG/ML Oral [...] mg from all sources in 24 hours.
[facility] Medication administered onsite Tetrahydrocannabinol 2.5 MG Oral Capsule dronabinol (M ARINOL) capsule 2.5 mg dronabinol (MARINOL) capsule 2.5 mg 11/26/2019 11:00:00 AM EDT 2.5 mg Oral aborted 2.5 mg, Oral, 2 Times Daily, First dose on Sun11/26/19 at 1100, For 7 days [facility] Medication administered onsite Oxycodone Hydrochloride 5 MG [...] only) require Pain Service consultation and approval.
[facility] Medication administered onsite Oxycodone Hydrochloride 5 MG [...] only) require Pain Service consultation and approval.
[facility] Medication administered onsite modafinil 100 MG Oral Tablet modafinil (PROVIGIL) tabl et 100 mg modafinil (PROVIGIL) tablet 100 mg 11/25/2019 03:00:00 PM EDT 100 mg Oral active 100 mg, Oral, 2 Times Daily, First dose on Sun11/25/19 at 1500, For 7 days [facility] Medication administered onsite pantoprazole (PROTONIX) 2 mg/mL oral suspension 40 mg 11/25/2019 09:00:00 AM EDT 40 mg Oral active 40 mg, O ral, Daily Standard, First dose on Sun11/25/19 at 0900, For 30 days
IV to PO conversion per protocol. May restart IV if unable to take po.
[facility] Medication administered onsite insulin lispro (HUMALOG) injection HIGH DOSE TUBE CONT INSULIN patients 1-16 Units [id number] 11/24/2019 10:00:00 PM EDT Subcutaneous aborted 1-16 Units, Subcutaneous, Every 4 hours, First dose on Sun11/24/19 at 2200, For 30 days
Nursing MUST open the 'SQ Insulin Dosing Charts' Sidebar Report, or, the Patient Summary or Summary Report within the ED.From 22:00 to 6 AM only when on TFs.
[facility] Medication administered onsite Furosemide 20 MG Oral Tablet furosemide (LASIX) tablet 20 mg furosemide (LASIX) tablet 20 mg 11/24/2019 09:00:00 PM EDT 20 mg Oral abort ed 20 mg, Oral, 2 Times Daily, First dose (after last modification) on Sun11/24/19 at 2100, For 53 doses [facility] Medication administered onsite Oxycodone Hydrochloride 5 MG [...] only) require Pain Service consultation and approval.
[facility] Medication administered onsite insulin lispro (HumaLOG) injection LOW DOSE EATING INS ULIN patients 1-8 Units [id number] 11/24/2019 01:00:00 PM EDT Subcutaneous active 1-8 Units, Subcutaneous, Three Times Daily-With Meals, First dose on Sun11/24/19 at 1300, For 30 days
Nursing MUST open the 'SQ Insulin Dosing Charts' Sidebar Report, or, the Patient Summary or Summary Report within the ED.
[facility] Medication administered onsite Insulin Glargine 100 UNT/ML [...] glucose more than 400 mg/dL: notify provider
[facility] Medication administered onsite Metoprolol Tartrate 25 MG Oral Tablet me toprolol tartrate (LOPRESSOR) tablet 12.5 mg metoprolol tartrate (LOPRESSOR) tablet 12.5 mg 10:45:00 AM EDT 12.5 mg Oral active 12.5 mg, Oral, 2 Times Daily, First dose on 11/23/19 at 1045, For 30 days [facility] Medication administered onsite Monobasic potassium phosphate 0.0408 [...] mg and potassium 144 mg (3.7 mEq)
[facility] Medication administered onsite potassium chloride (KLOR-CON) packet 40 mEq [id number] 11/23/2019 02:15:00 AM EDT 40 meq Oral completed 40 mEq , Oral, Once, 11/23/19 at 0215, For 1 dose
Mix in 4 ounces of water or juice
[facility] Medication administered onsite Insulin Glargine 100 UNT/ML [...] glucose more than 400 mg/dL: notify provider
[facility] Medication administered onsite lidocaine (PF) (XYLOCAINE) 2 % injection [id number] 11/21/2019 03:54: 29 PM EDT completed Code/Trauma Medicati on, Starting Sun11/21/19 at 1554 [facility] Medication administered onsite Acetaminophen 32 MG/ML Oral [...] mg from all sources in 24 hours.
[facility] Medication administered onsite gabapentin 50 MG/ML Oral Solution gabape ntin (NEURONTIN) 250 MG/5ML solution 100 mg gabapentin (NEURONTIN) 250 MG/5ML solution 100 mg 11/09 12:00:00 PM EDT 100 mg Oral aborted 100 mg, Oral, Every 8 hours Standard (3 times per day), First dose (after last modification) on Sun11/21/19 at 1200, For 30 days [facility] Medication administered onsite gabapentin 100 MG Oral Capsule gabapentin (NEURONTIN) capsule 100 mg gabapentin (NEURONTIN) capsule 100 mg 11/21/2019 11:30:00 AM EDT 100 mg Oral aborted 100 mg, Oral, Three Times D aily Standard, First dose (after last modification) on Sun11/21/19 at 1130, For 30 days [facility] Medication administered onsite Furosemide 40 MG Oral Tablet furosemide (LASIX) tablet 40 mg furosemide (LASIX) tablet 40 mg 11/21/2019 11:30:00 AM EDT 40 mg Oral abort ed 40 mg, Oral, 2 Times Daily, First dose on Sun11/21/19 at 1130, For 30 days [facility] Medication administered onsite tramadol hydrochloride 50 MG Oral Tablet tramadol (ULT CA) tablet 50 mg tramadol (ULTRAM) tablet 50 mg 11/21/2019 11:25:27 AM EDT 50 mg Oral aborted 50 mg, Oral, Every 6 hours PRN, Moderate Pain (Pain Scale Score 4-6), Starting Sun11/21/19 at 1125, For 4 days 8 hours [facility] Medication administered onsite 1 ML Ketorolac Tromethamine 15 MG/ML Car tridge ketorolac (TORADOL) 15 MG/ML injection 15 mg ketorolac (TORADOL) 15 MG/ML injection 15 mg 0 05:00:00 AM EDT 15 mg Intravenous completed 15 mg, Intravenous, Once, Sun11/21/19 at 0500, For 1 dose [facility] Medication administered onsite Insulin Glargine 100 UNT/ML [...] glucose more than 400 mg/dL: notify provider
[facility] Medication administered onsite furosemide (LASIX) injection 40 mg [id number] 11/20/2019 07:15:00 PM EDT 40 mg Intravenous completed 40 mg, I ntravenous, Once, Lily 11/20/19 at 1915, For 1 dose [facility] Medication administered onsite fentaNYL (SUBLIMAZE) (PF) injection 25 mcg [id number] 11/20/2019 06:30:00 PM EDT 25 ug Intravenous completed 25 mcg, Intravenous, Once, Lily 11/20/19 at 1830, For 1 dose [facility] Medication administered onsite ondansetron (ZOFRAN) injection 4 mg [id number] 11/20/2019 05:00:0 0 PM EDT 4 mg Intravenous completed 4 mg, In travenous, Every 6 hours PRN, Nausea, Vomiting, Starting Lily 11/20/19 at 1700, For 5 days 16 hours [facility] Medication administered onsite Albuterol 0.833 MG/ML / [...] MARIA DEL CARMEN is selected 'Yes' below.
[facility] Medication administered onsite 2 ML Metoclopramide 5 MG/ML Prefilled Sy ringe metoclopramide (REGLAN) injection 10 mg metoclopramide (REGLAN) injection 10 mg 11/20/2019 12:45:00 PM E DT 10 mg Intravenous completed 10 mg, I ntravenous, Once, Lily 11/20/19 at 1245, For 1 dose [facility] Medication administered onsite COLLAGENASE 0.25 UNT/MG Topical Ointment collagenase ( SANTYL) ointment collagenase (SANTYL) ointment 11/20/2019 12:00:00 PM EDT Topical active Topical, Daily Standard, Fi rst dose on Lily 11/20/19 at 1200, For 28 days
Per wound care nursing orders to left lower leg and left lateral ankle.
[facility] Medication administered onsite Acetaminophen 10 MG/ML Injectable Soluti on acetaminophen (OFIRMEV) infusion 1,000 mg acetaminophen (OFIRMEV) infusion 1,000 mg 11/20/2019 11:45:00 AM EDT 1000 mg Intravenous completed 1,000 mg , Intravenous, Administer over 15 Minutes, Once, Lily 11/20/19 at 1145, For 1 dose
Maximum dose 3 gm daily from all sources
[facility] Medication administered onsite Insulin Glargine 100 UNT/ML [...] glucose more than 400 mg/dL: notify provider
[facility] Medication administered onsite albumin human (ALBUMINAR) 25 % bottle 25 g [id number] 11/20/2019 09:00:00 AM EDT 25 g Intravenous completed 25 g, Intravenous, at 100 mL/hr, Every 8 hours Standard (3 times per day), First dose (after last reorder) on Lily 11/20/19 at 0900, For 3 doses [facility] Medication administered onsite Acetaminophen 10 MG/ML Injectable Soluti on acetaminophen (OFIRMEV) infusion 1,000 mg acetaminophen (OFIRMEV) infusion 1,000 mg 11/20/2019 04:00:00 AM EDT 1000 mg Intravenous completed 1,000 mg , Intravenous, Administer over 15 Minutes, Once, [facility] 11/20/19 at 0400, For 1 dose
Maximum dose 3 gm daily from all sources
[facility] Medication administered onsite 1 ML Ketorolac Tromethamine 15 MG/ML Car tridge ketorolac (TORADOL) 15 MG/ML injection 15 mg ketorolac (TORADOL) 15 MG/ML injection 15 mg 0 04:00:00 AM EDT 15 mg Intravenous completed 15 mg, Intravenous, Once, Lily 11/20/19 at 0400, For 1 dose [facility] Medication administered onsite ondansetron (ZOFRAN) injection 4 mg [id number] 11/19/2019 09:24:4 7 PM EDT 4 mg Intravenous aborted 4 mg, In travenous, Every 8 hours PRN, Nausea, Vomiting, Starting Sun11/19/19 at 2124, For 30 days [facility] Medication administered onsite furosemide (LASIX) injection 20 mg [id number] 11/19/2019 03:15:00 PM EDT 20 mg Intravenous completed 20 mg, I ntravenous, Every 8 hours Standard (3 times per day), First dose on Sun11/19/19 at 1515, For 5 doses
Please give Lasix immediately after Albumin infuses
[facility] Medication administered onsite albumin human (ALBUMINAR) 25 % bottle 25 g [id number] 11/19/2019 03:15:00 PM EDT 25 g Intravenous completed 25 g, Intravenous, at 100 mL/hr, Every 8 hours Standard (3 times per day), First dose on Sun11/19/19 at 1515, For 3 doses [facility] Medication administered onsite insulin lispro (HUMALOG) injection HIGH DOSE TUBE CONT INSULIN patients 1-16 Units [id number] 11/19/2019 01:15:00 PM EDT Subcutaneous aborted 1-16 Units, Subcutaneous, Every 4 hours, First dose on Sun11/19/19 at 1315, For 30 days
Nursing MUST open the 'SQ Insulin Dosing Charts' Sidebar Report, or, the Patient Summary or Summary Report within the ED.
[facility] Medication administered onsite Glucose 0.4 MG/MG Oral Gel glucose (GLUTOSE) 40 % oral gel 15 g glucose (GLUTOSE) 40 % oral gel 15 g 11/19/2019 01:00:53 PM EDT 15 g Oral active 15 g, Oral, PRN, Low blood s ugar, for gluose 55-69 mg/dl and able to take PO, Starting Sun11/19/19 at 1300, For 30 days [facility] Medication administered onsite lidocaine (LIDODERM) 5 % patch 2 patch [id number] 11:45:00 AM EDT 2 {patch} Transdermal active 2 patch, T ransdermal, Every 24 hours, First dose on Sun11/19/19 at 1145, For 30 days
Apply to left and right ribs for pain12 hours on - 12 hours off
[facility] Medication administered onsite Albuterol 0.83 MG/ML Inhalant Solution a lbuterol (PROVENTIL) (2.5 MG/3ML) 0.083% nebulizer solution albuterol (PROVENTIL) (2.5 MG/3ML) 0.083 % nebulizer solution 11/19/2019 11:34:00 AM EDT active Starting Sun11/19/19 at 1134, For 1 dose
Dustin Champion : cabinet override
[facility] Medication administered onsite Albuterol 0.83 MG/ML Inhalant [...] MARIA DEL CARMEN is selected 'Yes' below.
[facility] Medication administered onsite Insulin Glargine 100 UNT/ML [...] glucose more than 400 mg/dL: notify provider
[facility] Medication administered onsite tramadol hydrochloride 50 MG Oral Tablet tramadol (ULT CA) tablet 50 mg tramadol (ULTRAM) tablet 50 mg 11/18/2019 06:15:00 PM EDT 50 mg Oral completed 50 mg, Oral, Once, Sun11/18/19 at 1815, For 1 dose [facility] Medication administered onsite alteplase (CATHFLO) injection 2 mg [id number] 11/18/2019 04:00:00 PM EDT 2 mg Intracatheter completed 2 mg, Intra catheter, Once, Sun11/18/19 at 1600, For 1 dose
To be instilled by PICC team or IR nurse only for at least 30 minutes
[facility] Medication administered onsite alteplase (CATHFLO) injection 2 mg [id number] 11/18/2019 04:00:00 PM EDT 2 mg Intracatheter completed 2 mg, Intra catheter, Once, Sun11/18/19 at 1600, For 1 dose
To be instilled by PICC team or IR nurse only for at least 30 minutes
[facility] Medication administered onsite Carbamazepine 20 MG/ML Oral Suspension c arBAMazepine (TEGRETOL) 100 MG/5ML suspension 50 mg carBAMazepine (TEGRETOL) 100 MG/5ML suspension 50 mg 0 11/18/2019 03:06:00 PM EDT 50 mg Oral active 50 mg, Oral, Every 6 hours, First dose (after last modification) on Sun11/18/19 at 1515, For 30 doses [facility] Medication administered onsite Diclofenac Sodium 0.01 MG/MG Topical Gel Diclofenac Sodium (VOLTAREN) 1 % gel 2 g Diclofenac Sodium (VOLTAREN) 1 % gel 2 g 11/18/2019 12:21:03 PM EDT 2 g Topical completed 2 g, Topical, Four Times Daily-PRN, Pain, Starting Sun11/18/19 at 1221, For 168 hours
Apply to ribs.
[facility] Medication administered onsite insulin lispro (HUMALOG) injection HIGH DOSE TUBE BOLUS INSULIN patients 1-22 Units [id number] 11/18/2019 11:30:00 AM EDT Subcutaneous aborted 1-22 Units, Subcutaneous, Before Meals - Three Times Daily, First dose on Sun11/18/19 at 1130, For 30 days
Nursing MUST open the 'SQ Insulin Dosing Charts' Sidebar Report, or, the Patient Summary or Summary Report within the ED.
[facility] Medication administered onsite 1 ML Ketorolac Tromethamine 15 MG/ML Car tridge ketorolac (TORADOL) 15 MG/ML injection 15 mg ketorolac (TORADOL) 15 MG/ML injection 15 mg 0 01:15:00 AM EDT 15 mg Intravenous completed 15 mg, Intravenous, Once, Sun11/18/19 at 0115, For 1 dose [facility] Medication administered onsite Hydralazine Hydrochloride 20 MG/ML Injec table Solution hydrALAZINE (APRESOLINE) injection 10 mg hydrALAZINE (APRESOLINE) injection 10 mg 11/18/2019 12 :43:43 AM EDT 10 mg Intravenous active 10 m g, Intravenous, Every 6 hours PRN, Other, Hypertension, SBP >160, Starting Sun11/18/19 at 0043, For 30 days
Dilute in 25-50 ml normal saline. Administer over 30 minutes.
[facility] Medication administered onsite Carbamazepine 20 MG/ML Oral Suspension c arBAMazepine (TEGRETOL) 100 MG/5ML suspension 100 mg carBAMazepine (TEGRETOL) 100 MG/5ML suspension 100 mg 11/17/2019 09:00:00 PM EDT 100 mg Oral aborted 100 mg, Oral, 2 Times Daily, First dose on Sun11/17/19 at 2100, For 30 days [facility] Medication administered onsite Insulin Glargine 100 UNT/ML [...] glucose more than 400 mg/dL: notify provider
[facility] Medication administered onsite lidocaine (LIDODERM) 5 % patch 2 patch [id number] 0 05:00:00 PM EDT 2 {patch} Transdermal aborted 2 patch, T ransdermal, Every 24 hours, First dose (after last modification) on Sun11/17/19 at 1700, For 29 doses
Apply to ribs b/l12 hours on - 12 hours off
[facility] Medication administered onsite Oxycodone Hydrochloride 5 MG [...] only) require Pain Service consultation and approval.
[facility] Medication administered onsite potassium chloride 20 mEq in 100 mL IVPB (premix) [id number] 11/17/2019 02:45:00 AM EDT 20 meq Intravenous completed 20 mEq, Intravenous, Administer over 60 Minutes, Once, Sun11/17/19 at 0245, For 1 dose [facility] Medication administered onsite potassium chloride (KLOR-CON) packet 40 mEq [id number] 11/17/2019 02:45:00 AM EDT 40 meq Oral completed 40 mEq , Oral, Once, Sun11/17/19 at 0245, For 1 dose
Mix in 4 ounces of water or juice
[facility] Medication administered onsite 1 ML Ketorolac Tromethamine 15 MG/ML [place] ketorolac (TORADOL) 15 MG/ML injection 15 mg ketorolac (TORADOL) 15 MG/ML injection 15 mg 0 01:15:00 AM EDT 15 mg Intravenous completed 15 mg, Intravenous, Once, Sun11/17/19 at 0115, For 1 dose [facility] Medication administered onsite fentaNYL (SUBLIMAZE) (PF) injection 25 mcg [id number] 11/17/2019 12:00:00 AM EDT 25 ug Intravenous completed 25 mcg, Intravenous, Once, Sun11/17/19 at 0000, For 1 dose [facility] Medication administered onsite Piperacillin 3000 MG / tazobactam 375 MG Injection piperacillin-tazobactam (ZOSYN) IVPB 3.375 g (premix) piperacillin-tazobactam (ZOSYN) IVPB 3.3 75 g (premix) 11/16/2019 10:00:00 PM EDT 3.375 g Intravenous com pleted 3.375 g, Intravenous, Administer over 4 Hours, Every 8 hours, First dose (after last modification) on 11/16/19 at 2200, For 1 dose [facility] Medication administered onsite Metoprolol Tartrate 1 MG/ML Injectable S olution metoprolol (LOPRESSOR) injection 5 mg metoprolol (LOPRESSOR) injection 5 mg 11/16/2019 09:30:00 PM EDT 5 mg Intravenous active 5 mg, Intrave nous, Once, [place] 11/16/19 at 2130, For 1 dose
Dilute in 25 or 50 mL NS and administer over 30 minutes. If giving IVP, must be administered under the direct supervision of a medical provider and patient on a monitoring coordinator.
[facility] Medication administered onsite Potassium Chloride 0.1 MEQ/ML Injectable Solution potassium chloride 10 mEq in 100 mL IVPB (premix) potassium chloride 10 mEq in 100 mL IVPB (premix) 11/16/2019 09:30:00 PM EDT 10 meq Intravenous completed 10 mEq, Intravenous, Administer over 60 Minutes, Once, [place] 11/16/19 at 2130, For 1 dose [facility] Medication administered onsite magnesium sulfate in dextrose 5 % infusion (premix) 8 mEq [id number] 11/16/2019 09:00:00 PM EDT 8 meq Intravenous completed 8 mEq, Intravenous, Administer over 60 Minutes, Every 1 hour, First dose on 11/16/19 at 2100, For 2 doses
8 mEq = 1 g magnesium sulfate
[facility] Medication administered onsite fentaNYL (SUBLIMAZE) (PF) injection 25 mcg [id number] 11/16/2019 06:15:00 PM EDT 25 ug Intravenous completed 25 mcg, Intravenous, Once, 11/16/19 at 1815, For 1 dose [facility] Medication administered onsite lidocaine (LIDODERM) 5 % patch 1 patch [id number] 0 06:00:00 PM EDT 1 {patch} Transdermal aborted 1 patch, T ransdermal, Every 24 hours, First dose on 11/16/19 at 1800, For 30 days
Apply to ribs12 hours on - 12 hours off
[facility] Medication administered onsite bumetanide (BUMEX) injection 1 mg [id number] 11/15/2019 07:00:00 PM EDT 1 mg Intravenous completed 1 mg, In travenous, Once, 11/15/19 at 1900, For 1 dose [facility] Medication administered onsite insulin lispro (HUMALOG) injection CUSTO MIZABLE DOSE INSULIN patients 1-40 Units [id number] 11/15/2019 12:00:00 PM EDT Subcutaneous aborted 1-40 [...] 18
>401 give (units) AND NOTIFY: 20 [facility] Medication administered onsite bumetanide (BUMEX) injection 1 mg [id number] 11/15/2019 11:45:00 AM EDT 1 mg Intravenous completed 1 mg, In travenous, Once, 11/15/19 at 1145, For 1 dose [facility] Medication administered onsite quetiapine 25 MG Oral Tablet QUEtiapine (SEROquel) tab let 25 mg QUEtiapine (SEROquel) tablet 25 mg 11/15/2019 11:37:02 AM EDT 25 mg Oral active 25 mg, Oral, Three Times Daily-PRN, agitation, Starting 11/15/19 at 1137, For 30 days [facility] Medication administered onsite Insulin Glargine 100 UNT/ML [...] glucose more than 400 mg/dL: notify provider
[facility] Medication administered onsite 0.4 ML Enoxaparin sodium [...] 10-12 hours prior to removing epidural catheter.
[facility] Medication administered onsite Insulin Lispro 100 UNT/ML [...] than 400 mg/dL - notify the provider.
[facility] Medication administered onsite potassium chloride (KLOR-CON) packet 40 mEq [id number] 11/15/2019 08:45:00 AM EDT 40 meq Oral completed 40 mEq , Oral, Once, 11/15/19 at 0845, For 1 dose
Mix in 4 ounces of water or juice
[facility] Medication administered onsite furosemide (LASIX) injection 40 mg [id number] 11/15/2019 12:00:00 AM EDT 40 mg Intravenous completed 40 mg, I ntravenous, Once, 11/15/19 at 0000, For 1 dose [facility] Medication administered onsite Albuterol 0.833 MG/ML / [...] MARIA DEL CARMEN is selected 'Yes' below.
[facility] Medication administered onsite Insulin Glargine 100 UNT/ML [...] glucose more than 400 mg/dL: notify provider
[facility] Medication administered onsite quetiapine 25 MG Oral Tablet QUEtiapine (SEROquel) tab let 25 mg QUEtiapine (SEROquel) tablet 25 mg 11/14/2019 09:30:00 PM EDT 25 mg Oral completed 25 mg, Oral, Once, Sun11/14/19 at 2130, For 1 dose [facility] Medication administered onsite insulin lispro (HUMALOG) injection CUSTO MIZABLE DOSE INSULIN patients 1-40 Units [id number] 11/14/2019 08:00:00 PM EDT Subcutaneous aborted 1-40 [...] 16
>401 give (units) AND NOTIFY: 18 [facility] Medication administered onsite Albuterol 0.83 MG/ML Inhalant Solution a lbuterol (PROVENTIL) nebulizer solution 2.5 mg albuterol (PROVENTIL) nebulizer solution 2.5 mg 2019 04:40:37 PM EDT 2.5 mg Nebulization active 2.5 mg, Nebulization, Every 2 hours PRN, Wheezing, Starting Sun11/14/19 at 1640, For 4 days [facility] Medication administered onsite furosemide (LASIX) injection 40 mg [id number] 11/14/2019 04:15:00 PM EDT 40 mg Intravenous completed 40 mg, I ntravenous, Once, Sun11/14/19 at 1615, For 1 dose [facility] Medication administered onsite Prednisone 20 MG Oral Tablet predniSONE (DELTASONE) ta blet 40 mg predniSONE (DELTASONE) tablet 40 mg 11/14/2019 04:15:00 PM EDT 40 mg Oral completed 40 mg, Oral, Daily Standard , First dose on Sun11/14/19 at 1615, For 5 days
Take with food.
[facility] Medication administered onsite Piperacillin 3000 MG / tazobactam 375 MG Injection piperacillin-tazobactam (ZOSYN) IVPB 3.375 g (premix) piperacillin-tazobactam (ZOSYN) IVPB 3.3 75 g (premix) 11/14/2019 02:00:00 PM EDT 3.375 g Intravenous abo rted 3.375 g, Intravenous, Administer over 4 Hours, Every 8 hours, First dose on Sun11/14/19 at 1400, For 7 days [facility] Medication administered onsite Insulin Glargine 100 UNT/ML [...] glucose more than 400 mg/dL: notify provider
[facility] Medication administered onsite furosemide (LASIX) injection 40 mg [id number] 11/14/2019 01:45:00 PM EDT 40 mg Intravenous completed 40 mg, I ntravenous, Once, Sun11/14/19 at 1345, For 1 dose [facility] Medication administered onsite vancomycin (VANCOCIN) 1250 mg in NaCl 0.9 % 250 mL (premix) [id number] 11/14/2019 09:00:00 AM EDT 1250 mg Intravenous completed 1,250 mg, Intravenous, Administer over 90 Minutes, Every 12 hours, First dose (after last reorder) on Sun11/14/19 at 0900, For 3 days [facility] Medication administered onsite quetiapine 25 MG Oral Tablet QUEtiapine (SEROquel) tab let 25 mg QUEtiapine (SEROquel) tablet 25 mg 11/14/2019 12:00:00 AM EDT 25 mg Oral completed 25 mg, Oral, Once, Sun11/14/19 at 0000, For 1 dose [facility] Medication administered onsite magnesium sulfate in dextrose 5 % infusion (premix) 8 mEq 672711/13/2019 05:00:00 PM EDT 8 meq Intravenous completed 8 mEq, Intravenous, Administer over 60 Minutes, Once, [place] 11/13/19 at 1700, For 1 dose
8 mEq = 1 g magnesium sulfate
[facility] Medication administered onsite methylPREDNISolone sodium succinate (SOLU-MEDROL) injection 125 mg [id number] 11/13/2019 08:45:00 AM EDT 125 mg Intravenous completed 125 mg, Intravenous, Once, [place] 11/13/19 at 0845, For 1 dose [facility] Medication administered onsite furosemide (LASIX) injection 40 mg [id number] 11/13/2019 08:15:00 AM EDT 40 mg Intravenous completed 40 mg, I ntravenous, Once, [place] 11/13/19 at 0815, For 1 dose [facility] Medication administered onsite Insulin Glargine 100 UNT/ML [...] glucose more than 400 mg/dL: notify provider
[facility] Medication administered onsite furosemide (LASIX) injection 40 mg [id number] 11/12/2019 01:00:00 PM EDT 40 mg Intravenous completed 40 mg, I ntravenous, Once, Sun11/12/19 at 1300, For 1 dose [facility] Medication administered onsite Furosemide 40 MG Oral Tablet furosemide (LASIX) tablet 40 mg furosemide (LASIX) tablet 40 mg 11/12/2019 09:00:00 AM EDT 40 mg Oral abort ed 40 mg, Oral, Daily Standard, First dose (after last modification) on Sun11/12/19 at 0900, For 30 days [facility] Medication administered onsite furosemide (LASIX) injection 20 mg [id number] 11/11/2019 11:00:00 AM EDT 20 mg Intravenous completed 20 mg, I ntravenous, Once, Sun11/11/19 at 1100, For 1 dose [facility] Medication administered onsite fentaNYL (SUBLIMAZE) (PF) injection 50 mcg [id number] 11/11/2019 02:45:00 AM EDT 50 ug Intravenous completed 50 mcg, Intravenous, Once, Sun11/11/19 at 0245, For 1 dose [facility] Medication administered onsite Insulin Glargine 100 UNT/ML [...] glucose more than 400 mg/dL: notify provider
[facility] Medication administered onsite furosemide (LASIX) injection 20 mg [id number] 11/10/2019 11:30:00 AM EDT 20 mg Intravenous completed 20 mg, I ntravenous, Once, Sun11/10/19 at 1130, For 1 dose [facility] Medication administered onsite Albuterol 0.833 MG/ML / [...] MARIA DEL CARMEN is selected 'Yes' below.
[facility] Medication administered onsite fentaNYL (SUBLIMAZE) (PF) injection 50 mcg [id number] 11/10/2019 07:55:48 AM EDT 50 ug Intravenous completed 50 mcg, Intravenous, Every 2 hours PRN, Moderate Pain (Pain Scale Score 4-6), Severe Pain (Pain Scale Score 7-10), Other, agitation, Starting Sun11/10/19 at 0755, For 12 hours [facility] Medication administered onsite Hydralazine Hydrochloride 20 MG/ML Injec table Solution hydrALAZINE (APRESOLINE) injection 10 mg hydrALAZINE (APRESOLINE) injection 10 mg 11/08/2019 10 :45:05 PM EDT 10 mg Intravenous aborted 10 m g, Intravenous, Every 6 hours PRN, Other, Hypertension, for SBP >140, Starting 11/08/19 at 2245, For 30 days
Dilute in 25-50 ml normal saline. Administer over 30 minutes.
[facility] Medication administered onsite sennosides, CARE [facility] 35.2 MG/ML Oral Solution senna (SENOKO T) syrup 10 mL senna (SENOKOT) syrup 10 mL 11/08/2019 10:00:00 PM EDT 10 mL Oral active 10 mL, Oral, Nightly, First dose on 11/08/19 at 2200, For 30 days [facility] Medication administered onsite levETIRAcetam (KEPPRA) 1,250 mg in sodiu m chloride 0.9 % 100 mL (12.5 mg/mL) IVPB 11/08/2019 09:00:00 PM EDT 1250 mg Intravenous com pleted 1,250 mg, Intravenous, at 400 mL/hr, 2 Times Daily, First dose (after last modification) on 11/08/19 at 2100, For 12 doses [facility] Medication administered onsite Oxycodone Hydrochloride 5 MG [...] only) require Pain Service consultation and approval.
[facility] Medication administered onsite fentaNYL (SUBLIMAZE) (PF) injection 50 mcg [id number] 11/08/2019 10:45:00 AM EDT 50 ug Intravenous completed 50 mcg, Intravenous, Once, 11/08/19 at 1045, For 1 dose [facility] Medication administered onsite sodium chloride (preservative free) [...] Heparin 10 units/mL to lock. Reference Policy [address] Central Line Policy.
[Order 1 End] [...] mL Heparin 10 units/mL to lock.Reference Policy [address] Central Line Policy.
[Order 2 End] [Order 3 Start] Name: sodium chloride (preservative free) 0.9 % flush 10 mL Signed Summary: 10 mL, Intravenous, Every 12 hours, First dose on 11/08/19 at 1045, For 30 days
WHEN NOT IN USE - Verify blood return before use. Flush with 10 mL of Sodium Chloride 0.9 % and 2 mL Heparin 10 units/mL.Reference Policy [address] Central Line Policy.
[Order 3 End] [Order 4 Start] Name: heparin lock flush 10 UNIT/ML injection 20 Units Signed Summary: 20 Units, Intravenous, Every 12 hours, First dose on 11/08/19 at 1045, For 30 days
WHEN NOT IN USE - Verify blood return before use. Flush with 10 mL of Sodium Chloride 0.9 % and 2 mL Heparin 10 units/mL.Reference Policy [address] Central Line Policy.
[Order 4 End] [facility] Medication administered onsite fentaNYL (SUBLIMAZE) (PF) injection 100 mcg [id number] 11/08/2019 10:41:38 AM EDT 100 ug Intravenous aborted 100 mcg, Intravenous, Every 2 hours PRN, Moderate Pain (Pain Scale Score 4-6), Severe Pain (Pain Scale Score 7-10), Other, agitation, Starting 11/08/19 at 1041, For 57 hours [facility] Medication administered onsite fentaNYL (SUBLIMAZE) 100 MCG/2ML (PF) injection [id number] 11/08/2019 10:32:46 AM EDT completed Starti ng Sat 11/08/19 at 1032, For 1 dose
Jonathon Reyes : cabinet override
[facility] Medication administered onsite fentaNYL (SUBLIMAZE) (PF) injection 50 mcg [id number] 11/08/2019 10:30:15 AM EDT 50 ug Intravenous aborted 50 m cg, Intravenous, Every 2 hours PRN, Moderate Pain (Pain Scale Score 4-6), Severe Pain (Pain Scale Score 7-10), Other, agitation, Starting 11/08/19 at 1030, For 58 hours [facility] Medication administered onsite Docusate Sodium 10 MG/ML Oral Suspension docusate (COLACE) 50 MG/5ML liquid 100 mg docusate (COLACE) 50 MG/5ML liquid 100 mg 11/08/2019 10:00:00 AM EDT 100 mg Oral active 100 mg, Or al, 2 Times Daily, First dose on 11/08/19 at 1000, For 30 days [facility] Medication administered onsite Bisacodyl 10 MG Rectal Suppository bisacodyl (DULCOLAX ) suppository 10 mg bisacodyl (DULCOLAX) suppository 10 mg 11/08/2019 09:52:45 AM EDT 10 mg Rectal active 10 mg, Rectal, Daily PRN, Constipation, Starting 11/08/19 at 0952, For 30 days [facility] Medication administered onsite vancomycin (VANCOCIN) 1250 mg in NaCl 0.9 % 250 mL (premix) [id number] 11/08/2019 07:00:00 AM EDT 1250 mg Intravenous aborted 1,250 mg, Intravenous, Administer over 90 Minutes, Every 12 hours, First dose (after last reorder) on 11/08/19 at 0700, For 6 doses [facility] Medication administered onsite fentaNYL (SUBLIMAZE) (PF) injection 25 mcg [id number] 11/07/2019 08:32:48 PM EDT 25 ug Intravenous aborted 25 m cg, Intravenous, Every 2 hours PRN, Moderate Pain (Pain Scale Score 4-6), Severe Pain (Pain Scale Score 7-10), Other, agitation, Starting Sun11/07/19 at 2032, For 3 days [facility] Medication administered onsite Oxycodone Hydrochloride 5 MG [...] only) require Pain Service consultation and approval.
[facility] Medication administered onsite vancomycin (VANCOCIN) infusion 1,500 mg/300 mL (premix) [id number] 11/07/2019 02:30:00 PM EDT 1500 mg Intravenous completed 1,500 mg, Intravenous, Administer over 90 Minutes, Once, Sun11/07/19 at 1430, For 1 dose [facility] Medication administered onsite Piperacillin 3000 MG / tazobactam 375 MG Injection piperacillin-tazobactam (ZOSYN) IVPB 3.375 g (premix) piperacillin-tazobactam (ZOSYN) IVPB 3.3 75 g (premix) 11/07/2019 02:00:00 PM EDT 3.375 g Intravenous com pleted 3.375 g, Intravenous, Administer over 4 Hours, Every 8 hours, First dose on Sun11/07/19 at 1400, For 7 days [facility] Medication administered onsite iohexol (OMNIPAQUE) 300 MG/ML contrast injection 100 mL [id number] 11/07/2019 11:15:00 AM EDT 100 mL Given by IV completed 100 mL, Given by IV, 1 TIME IMAGING, Sun11/07/19 at 1115, For 1 dose [facility] Medication administered onsite insulin lispro (HUMALOG) injection HIGH DOSE TUBE CONT INSULIN patients 1-16 Units [id number] 11/07/2019 08:45:00 AM EDT Subcutaneous aborted 1-16 Units, Subcutaneous, Every 4 hours, First dose on Sun11/07/19 at 0845, For 30 days
Nursing MUST open the 'SQ Insulin Dosing Charts' Sidebar Report, or, the Patient Summary or Summary Report within the ED.
[facility] Medication administered onsite Insulin Glargine 100 UNT/ML [...] glucose more than 400 mg/dL: notify provider
[facility] Medication administered onsite dexmedetomidine (PRECEDEX) in NaCl 0.9 % infusion 4 mcg/mL 1 [id number] 11/06/2019 01:15:00 PM EDT Intravenous aborted 0.1-1.5 mcg/kg/hr 89 kg (2.225-33.375 mL/hr, rounded to 2.2-33.4 mL/hr), Intravenous, at 2.2-33.4 mL/hr, Continuous, Starting [place] 11/06/19 at 1315, For 30 days
Starting dose = 0.2 mcg/kg/hrTitrate to maintain RASS of 0 Titrate by 0.1-0.2 mcg/kg/hrMax Dose = 1.5 mcg/kg/hr Titrate down if RASS of -2
[facility] Medication administered onsite NaCl infusion 0.9 % [id number] 11/06/2019 01:15:00 PM EDT Intravenous aborted at 100 mL/hr, Intrav enous, Continuous, Starting [place] 11/06/19 at 1315, For 30 days [facility] Medication administered onsite Acetaminophen 32 MG/ML Oral [...] mg from all sources in 24 hours.
[facility] Medication administered onsite insulin lispro (HUMALOG) injection MEDIU M DOSE TUBE CONT INSULIN patients 1-14 Units [id number] 11/06/2019 09:45:00 AM EDT Subcutaneous aborted 1-14 Units, Subcutaneous, Every 4 hours, First dose on Sun11/06/19 at 0945, For 30 days
Nursing MUST open the 'SQ Insulin Dosing Charts' Sidebar Report, or, the Patient Summary or Summary Report within the ED.
[facility] Medication administered onsite Erythromycin 0.005 MG/MG Ophthalmic Oint ment erythromycin (ROMYCIN) ophthalmic ointment 1 cm erythromycin (ROMYCIN) ophthalmic ointment 1 cm 2019 10:00:00 PM EDT 1 cm Both Eyes completed 1 cm, Both Eyes, Nightly, First dose on Sun11/05/19 at 2200, For 14 days [facility] Medication administered onsite lidocaine (XYLOCAINE) 1 % injection 5 mL [id number] 11/05/2019 09:23:04 PM EDT 5 mL Subcutaneous aborted 5 m L, Subcutaneous, Once PRN, for PICC insertion, Starting Sun11/05/19 at 2123, For 30 days [facility] Medication administered onsite 0.3 ML Enoxaparin sodium [...] 10-12 hours prior to removing epidural catheter.
[facility] Medication administered onsite Sodium Chloride 0.513 MEQ/ML Injectable Solution sodium chloride 3 % hypertonic solution sodium chloride 3 % hypertonic solution 11/05/2019 08:00:00 PM EDT 30 mL/h Intravenous aborted at 30 mL/hr, Intravenous, Continuous, Starting Sun11/05/19 at 2000, For 30 days [facility] Medication administered onsite Carboxymethylcellulose Sodium 5 MG/ML Op hthalmic Solution carboxymethylcellulose PF (REFRESH PLUS) 0.5 % ophthalmic solution 1 drop carboxymethylcellulose PF (REFRESH PLUS) 0.5 % ophthalmic solution 1 drop 11/05/2019 05:00:00 PM EDT 1 [drp] Both Eyes active 1 drop, Curly th Eyes, Four Times Daily Standard, First dose on Sun11/05/19 at 1700, For 30 days [facility] Medication administered onsite propofol (DIPRIVAN) infusion 1,000 mg/100 mL [id number] 11/05/2019 12:30:00 PM EDT Intravenous aborted 10-3 0 mcg/kg/min 83.1 kg (4.986-14.958 mL/hr, rounded to 5-15 mL/hr), Intravenous, at 5-15 mL/hr, Continuous, Starting Sun11/05/19 at 1230, For 30 days
Starting dose = 10 mcg/kg/minTitrate to maintain RASS of -2Increase by 5-10 mcg/kg/minMax Dose = 80 mcg/kg/min Titrate down if RASS of -3
[facility] Medication administered onsite insulin regular (HumuLIN R) 100 units in sodium chloride 0.9 % 100 mL (1 unit/mL) infusion (premix) [id number] 11/05/2019 12:30:00 PM EDT 0.5 U/h Intravenous aborted 0.5 Units/hr (0.5 mL/hr), Intravenous, at 0.5 mL/hr, Continuous, Starting Sun11/05/19 at 1230, For 30 days
Call for titration.
[facility] Medication administered onsite insulin lispro (HUMALOG) injection HIGH DOSE NPO INSUL IN patients 1-12 Units [id number] 11/05/2019 09:30:00 AM EDT Subcutaneous aborted 1-12 Units, Subcutaneous, Every 4 hours, First dose on Sun11/05/19 at 0930, For 30 days
Nursing MUST open the 'SQ Insulin Dosing Charts' Sidebar Report, or, the Patient Summary or Summary Report within the ED.
[facility] Medication administered onsite pantoprazole 4 MG/ML Injectable Solution pantoprazole (PROTONIX) injection 40 mg pantoprazole (PROTONIX) injection 40 mg 11/05/2019 09:00:00 AM EDT 40 mg Intravenous aborted 40 mg, Intrav enous, Daily Standard, First dose (after last reorder) on Sun11/05/19 at 0900, For 30 doses
Dilute with 10 mL of 0.9% NaCl.Give IVP over 2 minutes. Flush before and after.
[facility] Medication administered onsite Albuterol 0.833 MG/ML / [...] MARIA DEL CARMEN is selected 'Yes' below.
[facility] Medication administered onsite dextrose 50 % IV solution 25 mL [id number] 11/05/2019 08:37:13 AM E DT 25 mL Intravenous active 25 mL, Intrav enous, PRN, Other, blood glucose <55, Starting Sun11/05/19 at 0837, For 30 days
Not for midline administration.
[facility] Medication administered onsite Glucagon 1 MG Injection glucagon (human recombinant) ( GLUCAGEN) injection 1 mg glucagon (human recombinant) (GLUCAGEN) injection 1 mg 11/05/2019 08:37:13 AM EDT 1 mg Intramuscular active 1 mg, Intramuscular, PRN, for glucose <55 without IV access, Starting Sun11/05/19 at 0837, For 30 days [facility] Medication administered onsite 2 ML Midazolam 1 MG/ML Injection midazolam (PF) (VERSE D) injection 2 mg midazolam (PF) (VERSED) injection 2 mg 11/05/2019 03:45:00 AM EDT 2 mg Intravenous completed 2 mg, Intrave nous, Once, Sun11/05/19 at 0345, For 1 dose [facility] Medication administered onsite pantoprazole 4 MG/ML Injectable Solution pantoprazole (PROTONIX) injection 40 mg pantoprazole (PROTONIX) injection 40 mg 11/05/2019 12:00:00 AM EDT 40 mg Intravenous completed 40 mg, Intrav enous, Once, Sun11/05/19 at 0000, For 1 dose
Dilute with 10 mL of 0.9% NaCl.Give IVP over 2 minutes. Flush before and after.
[facility] Medication administered onsite sodium chloride 0.9 % bolus 500 mL [id number] 11/04/2019 11:30:00 PM EDT 500 mL Intravenous completed 500 mL, Intravenous, Once, Sun11/04/19 at 2330, For 1 dose [facility] Medication administered onsite fentaNYL (SUBLIMAZE) (PF) injection 50 mcg [id number] 11/04/2019 11:15:00 PM EDT 50 ug Intravenous completed 50 mcg, Intravenous, Once, Sun11/04/19 at 2315, For 1 dose [facility] Medication administered onsite 50 ML Magnesium Sulfate [...] *For ICU Stay only, discontinue on transfer*
[facility] Medication administered onsite Cefazolin 2000 MG Injection ceFAZolin (ANCEF) IVPB 2 g in dextrose (premix) ceFAZolin (ANCEF) IVPB 2 g in dextrose (premix) 11/04/2019 11:00:00 PM EDT 2 g Intravenous completed 2 g, Int ravenous, Administer over 30 Minutes, Once, Sun11/04/19 at 2300, For 1 dose [facility] Medication administered onsite Levetiracetam 10 MG/ML Injectable Soluti on levETIRAcetam (KEPPRA) 1,000 mg in sodium chloride 100 mL (10 mg/mL) infusion (premix) levETIRAcetam (KEPPRA) 1,000 mg in sodium chloride 100 mL (10 mg/mL) infusion (premix) 11/04/2019 10:45:00 PM EDT 1000 mg Intravenous aborted 1,00 0 mg, Intravenous, at 400 mL/hr, 2 Times Daily, First dose on Sun11/04/19 at 2245, For 7 days [facility] Medication administered onsite iohexol (OMNIPAQUE) 350 MG/ML contrast injection 75 mL [id number] 11/04/2019 08:30:00 PM EDT 75 mL Given by IV completed 75 mL, Given by IV, 1 TIME IMAGING, Sun11/04/19 at 2030, For 1 dose [facility] Medication administered onsite NaCl infusion 0.9 % [id number] 11/04/2019 08:00:00 PM EDT Intravenous aborted at 100 mL/hr, Intrav enous, Continuous, Starting Sun11/04/19 at 2000, For 30 days [facility] Medication administered onsite fentaNYL (SUBLIMAZE) 50 mcg/mL continuous infusion FENTANYLP CANCA 11/04/2019 07:45:00 PM EDT Intravenous aborted 10-200 mcg/hr (0.2-4 mL/hr), Intravenous, at 0.2-4 mL/hr, Continuous, Starting Sun11/04/19 at 1945, For 7 days
Starting dose = 25 mcg/hrTitrate to maintain BPS less than 6 or VPS less than 4Increase by 12.5 mcg/hrMax Dose = 300 mcg/hr
[facility] Medication administered onsite fentaNYL (SUBLIMAZE) bolus from bag 25 mcg FENTANYLPCANCA 11/04/2019 07:31:30 PM EDT 25 ug Intravenous aborted 25 m cg, Intravenous, Every 2 hours PRN, breakthrough pain, Starting Sun11/04/19 at 1931, For 3 days 2 hours [facility] Medication administered onsite fentaNYL (SUBLIMAZE) 50 mcg/mL NCA FENTANYLPCANCA 11/04/2019 07:30: 52 PM EDT completed Starting T u11/04/19 at 1930, For 1 dose
Wm Vogel : larsinet override
[facility] Medication administered onsite propofol (DIPRIVAN) infusion 1,000 mg/100 mL [id number] 11/04/2019 07:30:00 PM EDT Intravenous aborted 10-8 0 mcg/kg/min 59 kg (3.54-28.32 mL/hr, rounded to 3.5-28.3 mL/hr), Intravenous, at 3.5-28.3 mL/hr, Continuous, Starting Sun11/04/19 at 193, For 30 days
Starting dose = 10 mcg/kg/minTitrate to maintain RASS of -1Increase by 5-10 mcg/kg/minMax Dose = 80 mcg/kg/min Titrate down if RASS of -2
[facility] Medication administered onsite 2 ML Midazolam 1 MG/ML Injection midazolam (PF) (VERSE D) injection 2 mg midazolam (PF) (VERSED) injection 2 mg 11/04/2019 07:15:19 PM EDT 2 mg Intravenous aborted 2 mg, Intrave nous, Every 2 hours PRN, Sedation, Starting Sun11/04/19 at 1915, For 2 days [facility] Medication administered onsite iohexol (OMNIPAQUE) 300 MG/ML contrast injection 100 mL [id number] 1011/04/2019 07:00:00 PM EDT 100 mL Given by IV completed 100 mL, Given by IV, 1 TIME IMAGING, Sun11/04/19 at 1900, For 1 dose [facility] Medication administered onsite 3 ML Insulin Lispro [...] SCRIPT, PRIOR AUTH FOR THIS SCRIPT IN [facility] Type 2 diabetes mellitus with peripheral neuropathy Type 2 diabetes mellitus with hyperglyce sandra, with long-term current use of insulin Blood Glucose Monitoring Suppl ([employer] w/Device KIT [id number] 10/29/2017 12:00:00 AM EDT 1 {each} Does not apply abort ed 1 each by Does not apply route See Admin Instructions To test BG levels 4 times daily. e11.65 [facility] 3 ML Insulin Glargine 100 UNT/ML Pen Inj magdi insulin glargine (LANTUS SOLOSTAR) 100 UNIT/ML pen insulin glargine (LANTUS SOLOSTAR) 100 UNIT/ML pen 12:00:00 AM EDT aborted Inject 15 units once daily. Max Daily Dose 30 units with priming and titration. E11.65 [facility] Insulin Pen Needle (B-D ULTRAFINE III SHORT PEN) 31G X 8 [place] [facility] [place] [id number] 10/29/2017 12:00:00 AM EDT aborted Use as directed. Use with insulin pens 4 times daily. e11.65 [facility] d3 high potency 125 mcg (5000 ut) caps completed d3 high potency 125 mcg (5000 ut) caps [facility] er) Cefuroxime 500 MG Oral Tablet cefuroxime axetil 500 mg tablet cefuroxime axetil 500 mg tablet completed cefuroxi me 500 MG Oral Tablet [facility]) Fluconazole 150 MG Oral Tablet fluconazole 150 mg tabl et fluconazole 150 mg tablet completed fluconazole 150 MG Oral Tablet [facility]) Loratadine 10 MG Oral Tablet loratadine 10 mg tablet loratadine 10 mg tablet completed loratadine 10 MG Oral Tablet [place] ([facility]) Azithromycin 250 MG Oral Tablet azithromycin 250 mg ta blet azithromycin 250 mg tablet completed azithromycin 25 0 MG Oral Tablet [facility]) COLLAGENASE 0.25 UNT/MG Topical Ointment [Santyl] Santyl 250 unit/gram topical ointment Santyl 250 unit/gram topical ointment completed collagenase 0.25 UNT/MG Topical Ointment [Santyl] [place] ([facility]) cetirizine hydrochloride 10 MG Oral Tabl et cetirizine 10 mg tablet Take 1 tablet every day by oral route for 90 days. cetirizine 10 mg tablet Take 1 tablet every day by oral route for 90 days. 1 c ompleted cetirizine hydrochloride 10 MG Oral Tablet [facility]) COLLAGENASE 0.25 UNT/MG Topical Ointment [Santyl] Santyl 250 unit/gram topical ointment Santyl 250 unit/gram topical ointment completed collagenase 0.25 UNT/MG Topical Ointment [Santyl] [place] ([facility]) Azithromycin 250 MG Oral Tablet azithromycin 250 mg ta blet azithromycin 250 mg tablet completed azithromycin 25 0 MG Oral Tablet [facility]) Azithromycin 250 MG Oral Tablet azithromycin 250 mg ta blet azithromycin 250 mg tablet completed azithromycin 25 0 MG Oral Tablet [facility]) Albuterol 0.833 MG/ML / Ipratropium Brom ramon 0.167 MG/ML Inhalant Solution ipratropium-albuterol (DUONEB) 0.5-2.5 (3) MG/3ML SOLN ipratropium-albuterol (DUONEB) 0.5-2.5 (3) MG/3ML SOLN 3 mL Nebulization aborted Take 3 mLs by nebulization as needed. [facility] Omeprazole 20 MG Delayed Release Oral Ca psule omeprazole 20 mg capsule,delayed release omeprazole 20 mg capsule,delayed release completed omeprazole 20 MG Delayed Release Oral Capsule [place] ([facility]) Loratadine 10 MG Oral Tablet loratadine 10 mg tablet loratadine 10 mg tablet completed loratadine 10 MG Oral Tablet [facility]) Omeprazole 20 MG Delayed Release Oral Ca psule omeprazole 20 mg capsule,delayed release omeprazole 20 mg capsule,delayed release completed omeprazole 20 MG Delayed Release Oral Capsule [facility]) d3 high potency 125 mcg (5000 ut) caps completed d3 high potency 125 mcg (5000 ut) caps [place] ([facility]) Famotidine 20 MG Oral Tablet famotidine 20 mg tablet famotidine 20 mg tablet completed famotidine 20 MG Oral Tablet [facility]) Omeprazole 20 MG Delayed Release Oral Ca psule omeprazole 20 mg capsule,delayed release omeprazole 20 mg capsule,delayed release completed omeprazole 20 MG Delayed Release Oral Capsule [place] ([facility]) pantoprazole 40 MG Delayed Release Oral Tablet pantoprazole 40 mg tablet,delayed release pantoprazole 40 mg tablet,delayed release completed pantoprazole 40 MG Delayed Release Oral Tablet [place] ([facility]) pantoprazole 40 MG Delayed Release Oral Tablet pantoprazole 40 mg tablet,delayed release pantoprazole 40 mg tablet,delayed release completed pantoprazole 40 MG Delayed Release Oral Tablet [place] ([facility]) albuterol (PROVENTIL HFA;VENTOLIN HFA) 108 (90 BASE) MCG/ACT inhale r [id number] 2 {puff} Inhalation aborted Inhale 2 puffs into the lungs every 6 (six) hours as needed [facility] d3 high potency 125 mcg (5000 ut) caps completed d3 high potency 125 mcg (5000 ut) caps [facility] er) Fluconazole 150 MG Oral Tablet fluconazole 150 mg tabl et fluconazole 150 mg tablet completed fluconazole 150 MG Oral Tablet [facility]) Omeprazole 20 MG Delayed Release Oral Ca psule omeprazole 20 mg capsule,delayed release omeprazole 20 mg capsule,delayed release completed omeprazole 20 MG Delayed Release Oral Capsule [facility]) Azithromycin 250 MG Oral Tablet azithromycin 250 mg ta blet azithromycin 250 mg tablet completed azithromycin 25 0 MG Oral Tablet [facility]) Famotidine 20 MG Oral Tablet famotidine 20 mg tablet famotidine 20 mg tablet completed famotidine 20 MG Oral Tablet [facility]) Famotidine 20 MG Oral Tablet famotidine (PEPCID) 20 MG tablet famotidine (PEPCID) 20 MG tablet 40 mg Oral aborted Take 40 mg by mouth Two Times Daily. [facility] Fluconazole 150 MG Oral Tablet fluconazole 150 mg tabl et fluconazole 150 mg tablet completed fluconazole 150 MG Oral Tablet [facility]) Famotidine 20 MG Oral Tablet famotidine 20 mg tablet famotidine 20 mg tablet completed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 Date Data Source [id number] 12/01/2019 03:01:37 PM EDT [facility] Name Value Range Interpretation Code Description Data Anjelica rce(s) Supporting Document(s) Discharge Summary [facility] IFFYVd6bLnWWUrTw09/BCKekAKGyf7DhUVxoAYj3ZUonVBEoM8ImMXP4pS2dRXB6TYhVRaTvCmLtKuTc lbm [file] dGE+DQogICAgICAgICAgICAgICAgICAgICAgICAgIC AgICAgICAgICAgICAgICAgICAgICAgICAgICAgICAgICAgICAgICAgICAgICAgICAgICAgICAgICAgIC AgICAgICAgICAgICAgDQogICAgICAgICAgICAgICAgICAgICAgICAgICAgICAgICAgICAgICAgICAgIC AgICAgICAgICAgICAgICAgICAgICAgICAgICAgICAg ICAgICAgICAgICAgICAgICAgICAgICAgDQogICAgICAgICAgICAgICAgICAgICAgICAgICAgICAgICAg ICAgICAgICAgICAgICAgICAgICAgICAgICAgICAgICAgICAgICAgICAgICAgICAgICAgICAgICAgICAg ICAgICAgDQogICAgICAgICAgICAgICAgICAgICAgIC AgICAgICAgICAgICAgICAgICAgICAgICAgICAgICAgICAgICAgICAgICAgICAgICAgICAgICAgICAgIC AgICAgICAgICAgICAgICAgDQogICAgICAgICAgICAgICAgICAgICAgICAgICAgICAgICAgICAgICAgIC AgICAgICAgICAgICAgICAgICAgICAgICAgICAgICAg ICAgICAgICAgICAgICAgICAgICAgICAgICAgDQogICAgICAgICAgICAgICAgICAgICAgICAgICAgICAg ICAgICAgICAgICAgICAgICAgICAgICAgICAgICAgICAgICAgICAgICAgICAgICAgICAgICAgICAgICAg ICAgICAgICAgDQogICAgICAgICAgICAgICAgICAgIC AgICAgICAgICAgICAgICAgICAgICAgICAgICAgICAgICAgICAgICAgICAgICAgICAgICAgICAgICAgIC AgICAgICAgICAgICAgICAgICAgDQogICAgICAgICAgICAgICAgICAgICAgICAgICAgICAgICAgICAgIC AgICAgICAgICAgICAgICAgICAgICAgICAgICAgICAg ICAgICAgICAgICAgICAgICAgICAgICAgICAgICAgDQogICAgICAgICAgICAgICAgICAgICAgICAgICAg ICAgICAgICAgICAgICAgICAgICAgICAgICAgICAgICAgICAgICAgICAgICAgICAgICAgICAgICAgICAg ICAgICAgICAgICAgDQogICAgICAgICAgICAgICAgIC AgICAgICAgICAgICAgICAgICAgICAgICAgICAgICAgICAgICAgICAgICAgICAgICAgICAgICAgICAgIC MwIMDoRBNwEZBgDNPwGWLgUCRkUSFlLZv6Q0ldWAOcEGAhWM7vXSs4Yp9+OAtIMuJfFMX9bwKwmB7YVU 4ym2NpZHakMMLzb0QdKYm5UA9EWCVeAQkpSA8PEEbc fs3LYKNbTYQyoNBHp6duSyPiIYH2UUYzYbzhPW4UGMBfS9qxjoJfGEVjXUZITHtgXNNUXRetMNCCOYJu YIHsIkUmYxUvDKVtYWChYVGFYWE5QUKsJiZdLSYgMFIaVoOdTRRZOTVlMJTcPdAzUOljBZ3Mz5MfpDFu FU4MQc3YEpTbQN0lpq0BFWGuVRQoQssKPzr4DMkfEK 6XiCNwlEO1RMSaLGXPCxYsF6ffo8EhDDLmMSIJCZjuVG9We7FrpJBjVIs+Dd2AFJ6ih5XdHLa5MNHrPV 6owr1GLQuLOsBiL0NouYprQJIvq6MlFFOgWLODzN9fVTR2JEN8YOWfFKKzroShXmSsVGdcSM0QCFG1IO HvLgWyVsWpVNJiAdg7XfVKIIyNTjPpA4Khn4UvHkK0 HHLpEpBmIUamSALyPnK2SX49wKqzRE7MDADvZZKgQK03JAZgUXAlMa4CVv7AUzNrWJ5tsh9LACZoCSBp FlgDWuc6KFazLG8VfLSlN5YndCDos0eBUoJvC4UKWKN0YQUfPk5CWTSlUzUlNBVpJTrdYB1rBSUpNSGB sBsbswH7SA7BIU1hgmUoLC6OCaGjYv1tBy9ZYnDdW6 XkT7ZyXBDfJZZIFQdkYB9KRRpfKL0vEN6Qu5RYwENxaP8tym2QSLQmSTGmOnqzrf4ZPenfY3H8rGqhBU DwQSXlKAQWLUbiNC2MIMKlGHP3CGTiHSTgYQATYhXaZ73nRU7RG5Huy29lEwP0SIWhNyTyNTcmWL03fF yjgjUfdSJdkLdhGH5KAk9+DQplbmRvYmoNCnhyZWYN KdOkDMKPOzTjDSRoBHMhGJHeLmO8MbGzHl4RMGPzMGFdQEWiKlHyADXmKQZgRKhrDJJjAEXgBMA6DGAm SOUgVQ8JFaYyPZRpXIEhKXQeUNOqUQBrgo7ENBOzPUGvLMK7DmTgQQQyVYVgHCtgDLJdNZWuQkL3CKNx MNWdVA7VPaSjQUGrDPI9SyXnRKZiDPOfmc2GJCFfLT XyQvV3DPRbUVVbKZSjGQjuSELbJQX7FdO7VAOvBVUxIW6XMxNkTHVuWMS2UelnCVErCUVdue2ZOBLgIQ EhKQl6ZNFvUWQbYJGxGGanMEWuJBKqRKnwXNUtOCGiHR5HXvDaFLDsXSB3YdPvJGFwHORvvw0NBQHgCO SoQkplMcDwOWHaRNYtQYinIHEnMHL2NHU8MHCiLAJn XF6BJqLcUHCoDeY8KAQtKVEkQBCxkn5WYLLfTWCoIGu0VSXjZTYxZYPeSOvaDHUoBEA1Dyf0DKPzJEKk HC0PVrJhENNpVoB6STSbADVnMKFppy5MLOWhBISwEqM5JEQaSZHpJHJiEDrbRHCbPUN8WWl8WOSaKKMp IU9MFiIdLEUuNyIeAZOaEJIeCGOqor8SGLQdHMYqAj BkEeFrTBJaXCWzWDtyBOChFLS8XTK4LYUpJTFwPU7VKkUkAXIxTeKoKTIdBLNtGZDpdl2QTKYaXLJyEk EvACBfNXToPTAcSMqlBMQvYIO0SMH4OBZvSVApGK9SAtDwVLGnLjM8WJWcZNOfRPIcqf1UULHtRZKjMe P3NFJpMMUwLHSvNJisJMZrSOG7JaNoJSZlKEXyDF5G RjCvHVNxRss7PantGUJrMCTlhc3EFAKpPDM3TORnQMPfIOMvEHQdZNweNXKuHYS5GcWyCMVyBOEnPS4O KqHlLAZbWGy3LZBtKOAcPCTami4NSOXlVSZ5TFQ5RKCjLXUmCLCpBTamGUBkMUReXuN1VQRaJKBwBT0E YcUuCFCcRWFmOPNuXIMhOEXqyu1RWARcUPI0TKB2MC IhYVJpWGLqQEmiDZMsRTCzBZC2IRFrKCPnOS3CZkBkBPSxVNB9QhUuUFQkQFAlfu9CNUJaZPF7AnF5Cl ShVMCxZVCaMPhuSOQoXBEwFMO8EUPlPDWyOA4JKhQlUJWyUOZ5HYVmYVJcPWXwjs6JbKDhyQaxon9AJL gNWd2OcVjcNUUlVEcbMu4mpDI6AiQnBQSYHo0WfqLj YIYvOORNBBoiBLLyUVOiQuB6VUH5JiCcBSSqWDWySwF5Svz5KXOaPmUpLQN0DxK2NnEoMHdsHNLnDaXk JvPnT6MkDOakQDV4OjN8HdE8IvF+AL7qJIu+Xy1Na9HwjvW9vzUgVPg1EgyhQW4BYEOWJ5GOKu== ID Date Data Source [id number] 12/01/2019 08:00:10 AM [facility] Name Value Range Interpretation Code Description Data Anjelica rce(s) Supporting Document(s) Glucose [Mass/volume] in Capillary blood by Glucometer 173 mg/dL 70- 140 H [facility] ID Date Data Source [id number] 12/01/2019 04:16:03 AM [facility] Name Value Range Interpretation Code Description Data Anjelica rce(s) Supporting Document(s) Leukocytes [#/volume] in Blood by Automated count 6.3 10*3/uL 4-10 [facility] Erythrocytes [#/volume] in Blood by Automated count 3.64 10*6/uL 4.1- 5.3 L [facility] Hemoglobin [Mass/volume] in Blood 10.3 g/dL 11.5-15.5 L [facility] Hematocrit [Volume Fraction] of Blood by Automated count 32.3 % 3 6-45 L [facility] Erythrocyte mean corpuscular volume [Entitic volume] by Auto mated count 88.7 fL 80-96 [facility] Erythrocyte mean corpuscular hemoglobin [Entitic mass] by Automated count 28.4 pg 27-33 [facility] Erythrocyte mean corpuscular hemoglobin concentration [Mass/volume] by Automated count 32.0 g/dL 32.0-36.0 [facility] width [Ratio] by Automated count 18.1 % 11.5-14.5 H [facility] Platelets [#/volume] in Blood by Automated count 232 10*3/uL 150-400 [facility] Differential cell count method - Blood [facility] Neutrophils/100 leukocytes in Blood by Automated count 50 % [facility] Lymphocytes/100 leukocytes in Blood by Automated count 36 % [facility] Monocytes/100 leukocytes in Blood by Automated count 10 % [facility] Eosinophils/100 leukocytes in Blood by Automated count 3 % [facility] Basophils/100 leukocytes in Blood by Automated count 1 % [facility] Neutrophils [#/volume] in Blood by Automated count 3.19 10*3/uL 1.8-7 .0 [facility] Lymphocytes [#/volume] in Blood by Automated count 2.31 10*3/uL 1.2-4 .0 [facility] Monocytes [#/volume] in Blood by Automated count 0.60 10*3/uL 0-0.8 [facility] Eosinophils [#/volume] in Blood by Automated count 0.17 10*3/uL 0-0.5 [facility] Basophils [#/volume] in Blood by Automated count 0.06 10*3/uL 0-0.2 [facility] Nucleated erythrocytes/100 leukocytes [Ratio] in Blood by Automated count 0 /100{WBCs} 0-0 [facility] ID Date Data Source [id number] 11/30/2019 05:05:49 PM EDT [facility] Name Value Range Interpretation Code Description Data Anjelica rce(s) Supporting Document(s) Glucose [Mass/volume] in Capillary blood by Glucometer 169 mg/dL 70- 140 H [facility] ID Date Data Source [id number] 11/30/2019 12:36:59 PM EDT [facility] Name Value Range Interpretation Code Description Data Anjelica rce(s) Supporting Document(s) Glucose [Mass/volume] in Capillary blood by Glucometer 198 mg/dL 70- 140 H [facility] ID Date Data Source [id number] [facility] Value Range Interpretation Code Description Data Anjelica rce(s) Supporting Document(s) Glucose [Mass/volume] in Capillary blood by Glucometer 209 mg/dL 70- 140 H [facility] ID Date Data Source [id number] 11/30/2019 05:12:59 AM EDT [facility] Name Value Range Interpretation Code Description Data Anjelica rce(s) Supporting Document(s) Leukocytes [#/volume] in Blood by Automated count 6.6 10*3/uL 4-10 [facility] Erythrocytes [#/volume] in Blood by Automated count 3.41 10*6/uL 4.1- 5.3 L [facility] Hemoglobin [Mass/volume] in Blood 9.8 g/dL 11.5-15.5 L [facility] Hematocrit [Volume Fraction] of Blood by Automated count 30.1 % 3 6-45 L [facility] Erythrocyte mean corpuscular volume [Entitic volume] by Auto mated count 88.3 fL 80-96 [facility] Erythrocyte mean corpuscular hemoglobin [Entitic mass] by Automated count 28.8 pg 27-33 [facility] Erythrocyte mean corpuscular hemoglobin concentration [Mass/volume] by Automated count 32.6 g/dL 32.0-36.0 [facility] width [Ratio] by Automated count 17.9 % 11.5-14.5 H [facility] Platelets [#/volume] in Blood by Automated count 263 10*3/uL 150-400 [facility] Differential cell count method - Blood [facility] Neutrophils/100 leukocytes in Blood by Automated count 53 % [facility] Lymphocytes/100 leukocytes in Blood by Automated count 34 % [facility] Monocytes/100 leukocytes in Blood by Automated count 9 % [facility] Eosinophils/100 leukocytes in Blood by Automated count 3 % [facility] Basophils/100 leukocytes in Blood by Automated count 1 % [facility] Neutrophils [#/volume] in Blood by Automated count 3.47 10*3/uL 1.8-7 .0 [facility] Lymphocytes [#/volume] in Blood by Automated count 2.23 10*3/uL 1.2-4 .0 [facility] Monocytes [#/volume] in Blood by Automated count 0.62 10*3/uL 0-0.8 [facility] Eosinophils [#/volume] in Blood by Automated count 0.20 10*3/uL 0-0.5 [facility] Basophils [#/volume] in Blood by Automated count 0.07 10*3/uL 0-0.2 [facility] Nucleated erythrocytes/100 leukocytes [Ratio] in Blood by Automated count 0 /100{WBCs} 0-0 [facility] ID Date Data Source [id number] 11/29/2019 10:18:24 PM [facility] Name Value Range Interpretation Code Description Data Anjelica rce(s) Supporting Document(s) Glucose [Mass/volume] in Capillary blood by Glucometer 218 mg/dL 70- 140 H [facility] ID Date Data Source [id number] 11/30/2019 09:01:19 AM [facility] Service Cmnt XXX-Imp : NOMicroorganism X XX Cult : 2019 nCoV Real-Time RT-PCR: NOT DETECTEDTest performed using the [employer] Simplexa COVID-19 Direct Assay. This test is only for use under the Food and Drug Administration's Emergency Use Authorization.Additional information is available on the following FDA websites for health care providers and patients. https://www.fda.gov/[facility]/312451/download , https://www.fda.gov/[facility]/943672/download Name Value Range Interpretation Code Description Data Anjelica rce(s) Supporting Document(s) ID Date Data Source [id number] 11/29/2019 07:28:00 PM [facility] Cmnt XXX-Imp : NOMicroorganism X XX Cult : 2019 nCoV Real-Time RT-PCR: NOT DETECTEDTest performed using the D[employer]orin Simplexa COVID-19 Direct Assay. This test is only for use under the Food and Drug Administration's Emergency Use Authorization.Additional information is available on the following FDA websites for health care providers and patients. https://www.fda.gov/media/048796/download , https://www.[employer].gov/media/780905/download Name Value Range Interpretation Code Description Data Anjelica rce(s) Supporting Document(s) Microorganism identified in Unspecified specimen by [facility] This lab was ordered by [facility] and reported by [facility]. ID Date Data Source [id number] 11/29/2019 05:10:09 PM [facility] Name Value Range Interpretation Code Description Data Anjelica rce(s) Supporting Document(s) Glucose [Mass/volume] in Capillary blood by Glucometer 239 mg/dL 70- 140 H [facility] ID Date Data Source [id number] 11/29/2019 12:01:40 PM [facility] Name Value Range Interpretation Code Description Data Anjelica rce(s) Supporting Document(s) Glucose [Mass/volume] in Capillary blood by Glucometer 342 mg/dL 70- 140 H [facility] ID Date Data Source [id number] 11/29/2019 08:04:53 AM [facility] Value Range Interpretation Code Description Data Anjelica rce(s) Supporting Document(s) Glucose [Mass/volume] in Capillary blood by Glucometer 162 mg/dL 70- 140 [facility] ID Date Data Source [id number] 11/29/2019 03:17:33 AM [facility] Value Range Interpretation Code Description Data Anjelica rce(s) Supporting Document(s) Leukocytes [#/volume] in Blood by Automated count 6.0 10*3/uL 4-10 [facility] Erythrocytes [#/volume] in Blood by Automated count 3.75 10*6/uL 4.1- 5.3 L [facility] Hemoglobin [Mass/volume] in Blood 11.0 g/dL 11.5-15.5 L [facility] Hematocrit [Volume Fraction] of Blood by Automated count 33.3 % 3 6-45 L [facility] Erythrocyte mean corpuscular volume [Entitic volume] by Auto mated count 88.6 fL 80-96 [facility] Erythrocyte mean corpuscular hemoglobin [Entitic mass] by Automated count 29.3 pg 27-33 [facility] Erythrocyte mean corpuscular hemoglobin concentration [Mass/volume] by Automated count 33.1 g/dL 32.0-36.0 [facility] width [Ratio] by Automated count 18.3 % 11.5-14.5 H [facility] Platelets [#/volume] in Blood by Automated count 285 10*3/uL 150-400 [facility] Differential cell count method - Blood [facility] Neutrophils/100 leukocytes in Blood by Automated count 50 % [facility] Lymphocytes/100 leukocytes in Blood by Automated count 36 % [facility] Monocytes/100 leukocytes in Blood by Automated count 9 % [facility] Eosinophils/100 leukocytes in Blood by Automated count 4 % [facility] Basophils/100 leukocytes in Blood by Automated count 1 % [facility] Neutrophils [#/volume] in Blood by Automated count 3.06 10*3/uL 1.8-7 .0 [facility] Lymphocytes [#/volume] in Blood by Automated count 2.14 10*3/uL 1.2-4 .0 [facility] Monocytes [#/volume] in Blood by Automated count 0.51 10*3/uL 0-0.8 [facility] Eosinophils [#/volume] in Blood by Automated count 0.21 10*3/uL 0-0.5 [facility] Basophils [#/volume] in Blood by Automated count 0.06 10*3/uL 0-0.2 [facility] Nucleated erythrocytes/100 leukocytes [Ratio] in Blood by Automated count 0 /100{WBCs} 0-0 [facility] ID Date Data Source [id number] 11/29/2019 12:23:44 AM EDT [facility] Name Value Range Interpretation Code Description Data Anjelica rce(s) Supporting Document(s) Glucose [Mass/volume] in Capillary blood by Glucometer 178 mg/dL 70- 140 H [facility] ID Date Data Source [id number] 11/28/2019 10:26:20 PM EDT [facility] XR CHEST FRONTAL ONLY [id number] RESULTI nterpreted by:Jay Reyez MDINDICATION: Further evaluation of pulmonary edema.TECHNIQUE: A single frontal view of the chest was obtained.COMPARISON: Chest radiograph dated 11/20/2019.FINDINGS: Right subclavian central venous catheter terminates in the proximal right atrium. Enteric tube traverses below the diaphragm with the distal tip out of the [id number]. The cardiomediastinal contours cannot be adequately evaluated. [...] rce(s) Supporting Document(s) ID Date Data Source [id number] 11/28/2019 05:34:05 PM [facility] Value Range Interpretation Code Description Data Anjelica rce(s) Supporting Document(s) Glucose [Mass/volume] in Capillary blood by Glucometer 177 mg/dL 70- 140 H [facility] ID Date Data Source [id number] 11/28/2019 11:13:58 AM [facility] Value Range Interpretation Code Description Data Anjelica rce(s) Supporting Document(s) Glucose [Mass/volume] in Capillary blood by Glucometer 235 mg/dL 70- 140 H [facility] ID Date Data Source [id number] 11/28/2019 08:17:31 AM [facility] Value Range Interpretation Code Description Data Anjelica rce(s) Supporting Document(s) Glucose [Mass/volume] in Capillary blood by Glucometer 182 mg/dL 70- 140 [facility] ID Date Data Source [id number] 11/28/2019 03:58:32 AM [facility] Value Range Interpretation Code Description Data Anjelica rce(s) Supporting Document(s) Bicarbonate [Moles/volume] in Serum 28 mmol/L 22-29 [facility] Chloride [Moles/volume] in Serum or Plasma 96 mmol/L 98-107 L [facility] Creatinine [Mass/volume] in Serum or Plasma 0.72 mg/dL 0.50-0.90 [facility] Glucose [Mass/volume] in Serum or Plasma 210 mg/dL 70-140 [facility] Potassium [Moles/volume] in Serum or Plasma 4.3 mmol/L 3.4-5.1 [facility] Sodium [Moles/volume] in Serum or Plasma 135 mmol/L 136-145 L [facility] Urea nitrogen [Mass/volume] in Serum or Plasma 24 mg/dL 6-20 H [facility] Anion gap 3 in Serum or Plasma 11 mmol/L 8-15 [facility] Osmolality of Serum or Plasma by calculation 291 mosm/kg 275-300 [facility] Creatinine/Urea nitrogen [Mass Ratio] in Serum or Plasma 33 [facility] Calcium [Mass/volume] in Serum or Plasma 9.0 mg/dL 8.6-10.0 [facility] Glomerular filtration rate/1.73 sq M pre dicted among non-blacks [Volume Rate/Area] in Serum or Plasma by Creatinine-based formula (MDRD) >6 0 [facility] Glomerular filtration rate/1.73 sq M pre dicted among blacks [Volume Rate/Area] in Serum or Plasma by Creatinine-based formula (MDRD) >60 [facility] ID Date Data Source [id number] 11/28/2019 04:35:54 AM EDT [facility] Name Value Range Interpretation Code Description Data Anjelica rce(s) Supporting Document(s) Leukocytes [#/volume] in Blood by Automated count 8.6 10*3/uL 4-10 [facility] Erythrocytes [#/volume] in Blood by Automated count 3.48 10*6/uL 4.1- 5.3 L [facility] Hemoglobin [Mass/volume] in Blood 9.9 g/dL 11.5-15.5 [facility] Hematocrit [Volume Fraction] of Blood by Automated count 31.1 % 3 6-45 L [facility] Erythrocyte mean corpuscular volume [Entitic volume] by Auto mated count 89.3 fL 80-96 [facility] Erythrocyte mean corpuscular hemoglobin [Entitic mass] by Automated count 28.4 pg 27-33 [facility] Erythrocyte mean corpuscular hemoglobin concentration [Mass/volume] by Automated count 31.8 g/dL 32.0-36.0 [facility] width [Ratio] by Automated count 18.4 % 11.5-14.5 H [facility] Platelets [#/volume] in Blood by Automated count 258 10*3/uL 150-400 [facility] Confirmed Differential cell count method - Blood [facility] Neutrophils/100 leukocytes in Blood by Automated count 63 % [facility] Lymphocytes/100 leukocytes in Blood by Automated count 26 % [facility] Monocytes/100 leukocytes in Blood by Automated count 6 % [facility] Eosinophils/100 leukocytes in Blood by Automated count 4 % [facility] Basophils/100 leukocytes in Blood by Automated count 1 % [facility] Neutrophils [#/volume] in Blood by Automated count 5.43 10*3/uL 1.8-7 .0 [facility] Lymphocytes [#/volume] in Blood by Automated count 2.21 10*3/uL 1.2-4 .0 [facility] Monocytes [#/volume] in Blood by Automated count 0.49 10*3/uL 0-0.8 [facility] Eosinophils [#/volume] in Blood by Automated count 0.33 10*3/uL 0-0.5 [facility] Basophils [#/volume] in Blood by Automated count 0.09 10*3/uL 0-0.2 [facility] Nucleated erythrocytes/100 leukocytes [Ratio] in Blood by Automated count 0 /100{WBCs} 0-0 [facility] ID Date Data Source [id number] 11/27/2019 09:39:38 PM EDT [facility] Name Value Range Interpretation Code Description Data Anjelica rce(s) Supporting Document(s) Glucose [Mass/volume] in Capillary blood by Glucometer 259 mg/dL 70- 140 H [facility] ID Date Data Source [id number] 12/01/2019 07:13:12 AM [facility] Service Cmnt XXX-Imp : NoneMicroorganism XXX Cult : Greater than 100,000 col/mlEscherichia coliGreater than 100,000 col/mlKlebsiella pneumoniaeATTENTION This species is always resistant to ampicillin and ticarcillin.(NOTE)Additional testing was performed to rule out a pathogen. Name Value Range Interpretation Code Description Data Anjelica rce(s) Supporting Document(s) ID Date Data Source [id number] 11/27/2019 08:53:31 PM [facility] Name Value Range Interpretation Code Description Data [facility] rce(s) Supporting Document(s) Color of Urine [facility] Clarity of Urine [facility] Specific gravity of Urine by Refractometry automated 1.013 1.003 -1.030 [facility] pH of Urine by Automated test strip 7.0 5.0-8.0 [facility] Protein [Mass/volume] in Urine by Automated test strip 100 mg/dL Neg [facility] Glucose [Mass/volume] in Urine by Automated test strip Neg [facility] Ketones [Mass/volume] in Urine by Automated test strip 5 mg/dL Neg [facility] Bilirubin.total [Presence] in Urine by Automated test strip Negative [facility] Hemoglobin [Presence] in Urine by Automated test strip Neg ative [facility] Leukocyte esterase [Presence] in Urine by Automated test strip Negative [facility] Nitrite [Presence] in Urine by Automated test strip Negati ve [facility] Leukocytes [#/area] in Urine sediment by Automated count 2214 /HPF 0 -5 H [facility] Erythrocytes [#/area] in Urine sediment by Automated count 12 /HPF 0-3 H [facility] Bacteria [#/area] in Urine sediment by Automated count Non e [facility] Epithelial cells.squamous [#/area] in Urine sediment by Auto mated count 3 /HPF None [facility] ID Date Data Source [id number] 11/27/2019 04:28:25 PM [facility] Value Range Interpretation Code Description Data Anjelica rce(s) Supporting Document(s) Glucose [Mass/volume] in Capillary blood by Glucometer 244 mg/dL 70- 140 H [facility] ID Date Data Source [id number] 11/27/2019 12:03:48 PM [facility] Value Range Interpretation Code Description Data Anjelica rce(s) Supporting Document(s) Glucose [Mass/volume] in Capillary blood by Glucometer 189 mg/dL 70- 140 H [facility] ID Date Data Source [id number] 11/27/2019 08:36:24 AM [facility] Value Range Interpretation Code Description Data Anjelica rce(s) Supporting Document(s) Glucose [Mass/volume] in Capillary blood by Glucometer 167 mg/dL 70- 140 H [facility] ID Date Data Source [id number] 11/27/2019 05:39:22 AM [facility] Value Range Interpretation Code Description Data Anjelica rce(s) Supporting Document(s) Bicarbonate [Moles/volume] in Serum 30 mmol/L 22-29 H [facility] Chloride [Moles/volume] in Serum or Plasma 95 mmol/L 98-107 L [facility] Creatinine [Mass/volume] in Serum or Plasma 0.86 mg/dL 0.50-0.90 [facility] Glucose [Mass/volume] in Serum or Plasma 159 mg/dL 70-140 H [facility] Potassium [Moles/volume] in Serum or Plasma 4.3 mmol/L 3.4-5.1 [facility] Sodium [Moles/volume] in Serum or Plasma 137 mmol/L 136-145 [facility] Urea nitrogen [Mass/volume] in Serum or Plasma 27 mg/dL 6-20 H [facility] Anion gap 3 in Serum or Plasma 13 mmol/L 8-15 [facility] Osmolality of Serum or Plasma by calculation 293 mosm/kg 275-300 [facility] Creatinine/Urea nitrogen [Mass Ratio] in Serum or Plasma 32 [facility] Calcium [Mass/volume] in Serum or Plasma 9.3 mg/dL 8.6-10.0 [facility] Glomerular filtration rate/1.73 sq M pre dicted among non-blacks [Volume Rate/Area] in Serum or Plasma by Creatinine-based formula (MDRD) 76 mL/min/1.73m2 >60 [facility] Glomerular filtration rate/1.73 sq M pre dicted among blacks [Volume Rate/Area] in Serum or Plasma by Creatinine-based formula (MDRD) 88 mL/min/1.73m2 >60 [facility] ID Date Data Source [id number] 11/27/2019 05:32:07 AM EDT [facility] Name Value Range Interpretation Code Description Data Anjelica rce(s) Supporting Document(s) Leukocytes [#/volume] in Blood by Automated count 8.1 10*3/uL 4-10 [facility] Erythrocytes [#/volume] in Blood by Automated count 3.36 10*6/uL 4.1- 5.3 L [facility] Hemoglobin [Mass/volume] in Blood 9.9 g/dL 11.5-15.5 L [facility] Hematocrit [Volume Fraction] of Blood by Automated count 29.8 % 3 6-45 L [facility] Erythrocyte mean corpuscular volume [Entitic volume] by Auto mated count 88.7 fL 80-96 [facility] Erythrocyte mean corpuscular hemoglobin [Entitic mass] by Automated count 29.3 pg 27-33 [facility] Erythrocyte mean corpuscular hemoglobin concentration [Mass/volume] by Automated count 33.1 g/dL 32.0-36.0 [facility] E[facility]th[facility] distribution width [Ratio] by Automated count 18.2 % 11.5-14.5 H [facility] Platelets [#/volume] in Blood by Automated count 290 10*3/uL 150-400 [facility] Differential cell count method - Blood [facility] Neutrophils/100 leukocytes in Blood by Automated count 67 % [facility] Lymphocytes/100 leukocytes in Blood by Automated count 22 % [facility] Monocytes/100 leukocytes in Blood by Automated count 7 % [facility] Eosinophils/100 leukocytes in Blood by Automated count 3 % [facility] Basophils/100 leukocytes in Blood by Automated count 1 % [facility] Neutrophils [#/volume] in Blood by Automated count 5.50 10*3/uL 1.8-7 .0 [facility] Lymphocytes [#/volume] in Blood by Automated count 1.77 10*3/uL 1.2-4 .0 [facility] Monocytes [#/volume] in Blood by Automated count 0.58 10*3/uL 0-0.8 [facility] Eosinophils [#/volume] in Blood by Automated count 0.20 10*3/uL 0-0.5 [facility] Basophils [#/volume] in Blood by Automated count 0.05 10*3/uL 0-0.2 [facility] Nucleated erythrocytes/100 leukocytes [Ratio] in Blood by Automated count 0 /100{WBCs} 0-0 [facility] ID Date Data Source [id number] 11/26/2019 10:23:15 PM EDT [facility] Name Value Range Interpretation Code Description Data Anjelica rce(s) Supporting Document(s) Glucose [Mass/volume] in Capillary blood by Glucometer 163 mg/dL 70- 140 H [facility] ID Date Data Source [id number] 11/26/2019 05:20:20 PM [facility] Value Range Interpretation Code Description Data Anjelica rce(s) Supporting Document(s) Glucose [Mass/volume] in Capillary blood by Glucometer 178 mg/dL 70- 140 H [facility] ID Date Data Source [id number] [facility]:17:[facility] Value Range Interpretation Code Description Data Anjelica rce(s) Supporting Document(s) Glucose [Mass/volume] in Capillary blood by Glucometer 190 mg/dL 70- 140 H [facility] ID Date Data Source [id number] 11/26/2019 07:42:38 AM EDT [facility] Name Value Range Interpretation Code Description Data Anjelica rce(s) Supporting Document(s) Glucose [Mass/volume] in Capillary blood by Glucometer 210 mg/dL 70- 140 H [facility] ID Date Data Source [id number] 11/26/2019 04:16:[facility] Value Range Interpretation Code Description Data Anjelica rce(s) Supporting Document(s) Bicarbonate [Moles/volume] in Serum 38 mmol/L 22-29 H [facility] Chloride [Moles/volume] in Serum or Plasma 95 mmol/L 98-107 L [facility] Creatinine [Mass/volume] in Serum or Plasma 1.00 mg/dL 0.50-0.90 H [facility] Glucose [Mass/volume] in Serum or Plasma 197 mg/dL 70-140 H [facility] Potassium [Moles/volume] in Serum or Plasma 4.7 mmol/L 3.4-5.1 [facility] Sodium [Moles/volume] in Serum or Plasma 142 mmol/L 136-145 [facility] Urea nitrogen [Mass/volume] in Serum or Plasma 30 mg/dL 6-20 H [facility] Anion gap 3 in Serum or Plasma 9 mmol/L 8-15 [facility] Osmolality of Serum or Plasma by calculation 305 mosm/kg 275-300 H [facility] Creatinine/Urea nitrogen [Mass Ratio] in Serum or Plasma 30 [facility] Calcium [Mass/volume] in Serum or Plasma 9.3 mg/dL 8.6-10.0 [facility] Glomerular filtration rate/1.73 sq M pre dicted among non-blacks [Volume Rate/Area] in Serum or Plasma by Creatinine-based formula (MDRD) 63 mL/min/1.73m2 >60 [facility] Glomerular filtration rate/1.73 sq M pre dicted among blacks [Volume Rate/Area] in Serum or Plasma by Creatinine-based formula (MDRD) 73 mL/min/1.73m2 >60 [facility] ID Date Data Source [id number] 11/26/2019 03:58:31 AM [facility] Name Value Range Interpretation Code Description Data Anjelica rce(s) Supporting Document(s) Leukocytes [#/volume] in Blood by Automated count 10.9 10*3/uL 4-10 H [facility] Erythrocytes [#/volume] in Blood by Automated count 3.21 10*6/uL 4.1- 5.3 L [facility] Hemoglobin [Mass/volume] in Blood 9.2 g/dL 11.5-15.5 L [facility] Hematocrit [Volume Fraction] of Blood by Automated count 28.7 % 3 6-45 L [facility] Erythrocyte mean corpuscular volume [Entitic volume] by Auto mated count 89.3 fL 80-96 [facility] Erythrocyte mean corpuscular hemoglobin [Entitic mass] by Automated count 28.7 pg 27-33 [facility] Erythrocyte mean corpuscular hemoglobin concentration [Mass/volume] by Automated count 32.2 g/dL 32.0-36.0 [facility] E[facility]th[facility] distribution width [Ratio] by Automated count 18.3 % 11.5-14.5 H [facility] Platelets [#/volume] in Blood by Automated count 312 10*3/uL 150-400 [facility] Differential cell count method - Blood [facility] Neutrophils/100 leukocytes in Blood by Automated count 74 % [facility] Lymphocytes/100 leukocytes in Blood by Automated count 15 % [facility] Monocytes/100 leukocytes in Blood by Automated count 7 % [facility] Eosinophils/100 leukocytes in Blood by Automated count 3 % [facility] Basophils/100 leukocytes in Blood by Automated count 1 % [facility] Neutrophils [#/volume] in Blood by Automated count 8.06 10*3/uL 1.8-7 .0 H [facility] Lymphocytes [#/volume] in Blood by Automated count 1.67 10*3/uL 1.2-4 .0 [facility] Monocytes [#/volume] in Blood by Automated count 0.76 10*3/uL 0-0.8 [facility] Eosinophils [#/volume] in Blood by Automated count 0.27 10*3/uL 0-0.5 [facility] Basophils [#/volume] in Blood by Automated count 0.10 10*3/uL 0-0.2 [facility] Nucleated erythrocytes/100 leukocytes [Ratio] in Blood by Automated count 0 /100{WBCs} 0-0 [facility] ID Date Data Source [id number] 11/25/2019 09:21:27 PM [facility] Name Value Range Interpretation Code Description Data Anjelica rce(s) Supporting Document(s) Glucose [Mass/volume] in Capillary blood by Glucometer 209 mg/dL 70- 140 H [facility] ID Date Data Source [id number] 11/25/2019 04:51:48 PM [facility] Value Range Interpretation Code Description Data Anjelica rce(s) Supporting Document(s) Glucose [Mass/volume] in Capillary blood by Glucometer 217 mg/dL 70- 140 H [facility] ID Date Data Source [id number] 11/25/2019 12:04:[facility] FRONT[facility] ONLY [id number] RESULTI nterpreted by:Isrrael Castellano MDINDICATION: Follow-up pulmonary edema.TECHNIQUE: XR CHEST FRONTAL ONLY [id number], 11/25/2019 11:25 AM, 45 degrees upright.COMPARISON: 11/23/2019.FINDINGS: The chest wall and mediastinum have not changed. Pleural effusions persist bilaterally. The lungs remain diffusely opacified, consistent with edema or pneumonia, unchanged.IMPRESSION: 1. No substantial change.This document has been electronically signed by Isrrael Castellano MD on 11/25/2019 12:01 PM Name Value Range Interpretation Code Description Data Anjelica rce(s) Supporting Document(s) ID Date Data Source [id number] 11/25/2019 12:13:29 PM [facility] Value Range Interpretation Code Description Data Anjelica rce(s) Supporting Document(s) Glucose [Mass/volume] in Capillary blood by Glucometer 243 mg/dL 70- 140 H [facility] ID Date Data Source [id number] 11/25/2019 08:37:33 AM [facility] Value Range Interpretation Code Description Data Anjelica rce(s) Supporting Document(s) Glucose [Mass/volume] in Capillary blood by Glucometer 291 mg/dL 70- 140 H [facility] ID Date Data Source [id number] 11/25/2019 06:18:49 AM [facility] Value Range Interpretation Code Description Data Anjelica rce(s) Supporting Document(s) Glucose [Mass/volume] in Capillary blood by Glucometer 260 mg/dL 70- 140 [facility] ID Date Data Source [id number] 11/25/2019 04:06:19 AM [facility] Value Range Interpretation Code Description Data Anjelica rce(s) Supporting Document(s) Leukocytes [#/volume] in Blood by Automated count 7.2 10*3/uL 4-10 [facility] Erythrocytes [#/volume] in Blood by Automated count 3.08 10*6/uL 4.1- 5.3 L [facility] Hemoglobin [Mass/volume] in Blood 8.8 g/dL 11.5-15.5 L [facility] Hematocrit [Volume Fraction] of Blood by Automated count 27.5 % 3 6-45 L [facility] Erythrocyte mean corpuscular volume [Entitic volume] by Auto mated count 89.5 fL 80-96 [facility] Erythrocyte mean corpuscular hemoglobin [Entitic mass] by Automated count 28.7 pg 27-33 [facility] Erythrocyte mean corpuscular hemoglobin concentration [Mass/volume] by Automated count 32.1 g/dL 32.0-36.0 [facility] E[facility]th[facility] distribution width [Ratio] by Automated count 18.7 % 11.5-14.5 H [facility] Platelets [#/volume] in Blood by Automated count 345 10*3/uL 150-400 [facility] Differential cell count method - Blood [facility] Neutrophils/100 leukocytes in Blood by Automated count 60 % [facility] Lymphocytes/100 leukocytes in Blood by Automated count 28 % [facility] Monocytes/100 leukocytes in Blood by Automated count 7 % [facility] Eosinophils/100 leukocytes in Blood by Automated count 4 % [facility] Basophils/100 leukocytes in Blood by Automated count 1 % [facility] Neutrophils [#/volume] in Blood by Automated count 4.31 10*3/uL 1.8-7 .0 [facility] Lymphocytes [#/volume] in Blood by Automated count 2.02 10*3/uL 1.2-4 .0 [facility] Monocytes [#/volume] in Blood by Automated count 0.52 10*3/uL 0-0.8 [facility] Eosinophils [#/volume] in Blood by Automated count 0.26 10*3/uL 0-0.5 [facility] Basophils [#/volume] in Blood by Automated count 0.07 10*3/uL 0-0.2 [facility] Nucleated erythrocytes/100 leukocytes [Ratio] in Blood by Automated count 0 /100{WBCs} 0-0 [facility] ID Date Data Source [id number] 11/25/2019 04:31:50 AM EDT [facility] Name Value Range Interpretation Code Description Data Anjelica rce(s) Supporting Document(s) Bicarbonate [Moles/volume] in Serum 38 mmol/L 22-29 H [facility] Chloride [Moles/volume] in Serum or Plasma 100 mmol/L 98-107 [facility] Creatinine [Mass/volume] in Serum or Plasma 0.91 mg/dL 0.50-0.90 H [facility] Glucose [Mass/volume] in Serum or Plasma 196 mg/dL 70-140 H [facility] Potassium [Moles/volume] in Serum or Plasma 4.9 mmol/L 3.4-5.1 [facility] Sodium [Moles/volume] in Serum or Plasma 146 mmol/L 136-145 H [facility] Urea nitrogen [Mass/volume] in Serum or Plasma 28 mg/dL 6-20 H [facility] Anion gap 3 in Serum or Plasma 8 mmol/L 8-15 [facility] Osmolality of Serum or Plasma by calculation 314 mosm/kg 275-300 H [facility] Creatinine/Urea nitrogen [Mass Ratio] in Serum or Plasma 31 [facility] Calcium [Mass/volume] in Serum or Plasma 9.1 mg/dL 8.6-10.0 [facility] Glomerular filtration rate/1.73 sq M pre dicted among non-blacks [Volume Rate/Area] in Serum or Plasma by Creatinine-based formula (MDRD) 71 mL/min/1.73m2 >60 [facility] Glomerular filtration rate/1.73 sq M pre dicted among blacks [Volume Rate/Area] in Serum or Plasma by Creatinine-based formula (MDRD) 82 mL/min/1.73m2 >60 [facility] ID Date Data Source [id number] 11/25/2019 02:34:39 AM EDT [facility] Value Range Interpretation Code Description Data Anjelica rce(s) Supporting Document(s) Glucose [Mass/volume] in Capillary blood by Glucometer 120 mg/dL 70- 140 [facility] ID Date Data Source [id number] 11/24/2019 10:02:18 PM EDT [facility] Value Range Interpretation Code Description Data Anjelica rce(s) Supporting Document(s) Glucose [Mass/volume] in Capillary blood by Glucometer 158 mg/dL 70- 140 [facility] ID Date Data Source [id number] [facility] Code Description Data Anjelica rce(s) Supporting Document(s) Glucose [Mass/volume] in Capillary blood by Glucometer 134 mg/dL 70- 140 [facility] ID Date Data Source [id number] 11/24/2019 04:07:11 PM EDT [facility] XR CHEST FRONTAL ONLY [id number] RESULTI nterpreted by:Jay Reyez MDINDICATION: Status post right-sided thoracentesis.TECHNIQUE: A single frontal view of the chest was obtained.COMPARISON: Chest radiograph dated 11/21/2019.FINDINGS: Right subclavian central venous catheter terminates in the proximal right atrium. Enteric tube traverses below the diaphragm with the distal tip out of the [id number]. The cardiomediastinal contours are unchanged. There is [...] rce(s) Supporting Document(s) ID Date Data Source [id number] 11/24/2019 12:54:02 PM [facility] Name Value Range Interpretation Code Description Data Anjelica rce(s) Supporting Document(s) Glucose [Mass/volume] in Capillary blood by Glucometer 254 mg/dL 70- 140 H [facility] ID Date Data Source [id number] 11/24/2019 11:45:58 AM EDT [facility] IR IMAGE GUIDED NEEDLE DRAIN PROCEDUREFI NAL [...] rce(s) Supporting Document(s) ID Date Data Source [id number] 11/24/2019 08:40:48 AM [facility] Name Value Range Interpretation Code Description Data Anjelica rce(s) Supporting Document(s) [facility] CXVYFq6tUrKQKsInz9KcDxSpNIVwBS7awwq2T2Z1wREvO8SyaKQja5leR3RkZ6PjQPOgTTOVKB1CrJJn jb2 [file] 7xL72l5vyxcmz5/9/HBHPz/obA9td6e2YnDKG9FbAB43scPmiB7/EXYU+udgjz3p00v3g+567231Q/pharmaceutical worker [file] m/k5B5msR3+ZCeSPrdLFqKpN/Ladder Operator/lE0u+KVJQlxFNL G1GRQAFS5b2dPYdmrCHRrJ36FzzPd5vq/rjC+8iinD+r5IkBPoD1eW0VJtl4FwwmhneL1q3Vu5vHcppq CgOsI0JUAs2GSKTAkj2Ud2+/K+hdaCix522JHg/46vCDcOsW38GifR8ZPs4PQKw8MfIKZ+JFBqoJIgPl NMHzt70XFBJL0eOnLREac6T836k788p080f51DU98f A4BXxT9GXvao4eN0JsySFtJErmhQhh2xz8Cl7klszmvmg4tlv6SdMDSYtTwEUQUweSLX4w6UAGL2l6YU 3kDx8p9v7JY4ZRsok94jeS5QdTtPoJ3s1htrc3Ti376b/mqq2mcY5EIzEiJZgh0vB0dpK/E06zKoS65m 6Qq2f208SyJcV8rlFDUI2r2KZSo4e6IFRqwa7LwIcd DdLfeuoGAOwwnyJFBAaz9BXCxpm2OpZhauzch15qv68up95bz/oP2vfNvnll9e9Qn78oRix4D/Mvq/mX 2jqQvd9dGc+wew6Trw+o9h2F5u+yxsc39J/Cu/0phO4dfep+Iu+N/4fL7wd3l/7nXX4cah+bj2gpjeyR 3iy4rl2+V16/+0jFJCNP5Smo1WjVow2+AxWhy9mtOP 2/+2lPqIJskNzgr5PCezwwVmYuKarmWrdJmFUDZFP0Esspe9jniwM4fy7t+u5s1Lm8Fe3yG0tXnNz6Wt fsgRef6wn96p6VU9XYXq9N0lT0Af38S5DMzffwYIf3FtV7gTMTlNDpxKQ6AlnQohoxLRtAO/PGorFobD I9GiiMqrFm653wvknzy+wugd1r1EJkPeCuPnycg+ky pk9q4LZfUaYpOqcyt+gjxc0g7MJmOhPxClwn4KmgpFXLG7jOx+++Pl7r9hZ2Z89wflQJpUd4Sy5GD72U NrgHAXVlxjJZcbbUTo9Lbw1n4kg26hPrsbz3CjrqPc6Hh2dS09IjSoV5canENH0u1LRPj/K7tW/L734j glI303dntro0Ivcf7u6Hu9v501BsIb304bdIV0118d JNF2+4jSTXcr6uaOHlqgctwltBzIeJFj2DD3+ijS/HtckumhX9Saedte+hh8O42IovWqhIFlmFMulHC3 Nx68mCv7igAAPJ4lT3/A4IUsY45a5SGsxAkc5QlHTjYIuYvvUnlQVctv+SFuPQrJ5w05onOTdeDfLUOC NqI557Izy+W1uv+g9htVy43l94o055sotn1j088ntC [file] TNHGTYrBNZSAZEbAAPKOQMtAFKaBNGAHTOtXMQuSP8lHBeUVcmnQKjRQzn7ISKwUVGDAXL557PoTgs4e fRxWBipzk1Pw+8Lv55zQ7Y62hiUfmpQrbbIUZRmRDLTRpGBvTUfVWaUJNIVpxrGOjulf8VBSDSDDJBA4 eiMz94CcOLOSITZLNjkH36ZrvK5FHrOroCrc9NpAez p3dvPScbHN7rB2G3oeLNMbqbQbqtitFrGYmc72OXyU3q0hnnsV25k8d/kWas8JIC9n8ZlNY6yYfkU2RI VYdZ2G+Ptta4V3KYSgnHPpNc7rzvyBUqr4+XZKIweKPBYyGCJSHu1wwtpJk5iCL8w3I+ugNR4Uhlyv+D ikl4rLuJZfh2L8Fa4Dw4UByjBW/+YvPYwv2LuLSPZE zMogQ4+jTKxI6iieZ0EL8ZbBD1QpHBjpjuEJdOyOEVWR3wx+Ma8g+WZ7zgCHt5FZoOabrrvSdyT7qLPa IovIJrKBLHCqocfyGEJEiCgRJdKINCKdSCdiRNgOFtvBYgwWxguhx/FUj5qxwfpQKh27lbKYWIB+C8En ZtKLMdqwn1OqqH1ObA4S52AGDeaD39o4SqLEPAEtme hwQjxFijnMtfGG5kG2TRlorT5GVcwFJdZy3vb4kjfNIi+cgOqACu8ha90LZ4uXRORGdITxD/kvk469/C bi6Kq5vm1mz//tC4y174pS/+Pt/ksvx2PEs3Zy3D+//fT5/ae/efv6/YfPv/z0Dr/kQV4msw++/uL+yP Y3zeQd4duk2VHnV/tP33/8mU/rgAqkW3z90Rf/75oL 9fvvvv/4D2/f//q7z+8+v3/37hpmQ1w23xm87o7++Y57E400+WrXN6a5Nh14pf01+vb7zx8+vn/79P7z pw/vf/Yoq98O094x2uT+6Gt1UOK2rdrLt++/e/v0y3/4/Mtf/YWf3W/g+2ffvP/F57cvv//90Wsu3085 9I4wU540+/Kbb7/6z3/hL5K1+Pjtx+9+/f6rD7/48N Xbd5/f3n38+u3z29+/+141q8jqfgu400/effOqy0//1hfs2q1/v3p7/9V//As/uzOA+2d//8v3H9+++v HGr0841p2Rd7//ul/3H96+/rDgOUeqjl4u3R/+wmHuF/19mL/7/g95qy21+/Zwi32msfBTfe//4/u3Dx /f/u7Td2/v/iaP2867I50DVaz33uX5ymD2OoVY2j60 +OxT9cef9053uc48Zgr2uh156p//+fd//sMP//T2X//P228+fPPNu0+f3r/75m/fygS0giB++/jh/Tdv //maKM5qH4/96Y9v4+diP/v1gVwZ8ZSij+9+9e8agK+Cuo+s9oc//Undill2cGS8VsIlzqZ8vwyr/uD9 +uX/QhtEzFtmy7f16SOdNr88hU6mCw2kP6+G6+rCR2 pkaR4tm8sa9gZrmtCG/YNPP/zzD3/+s8zkq8iIVpv00ESKM119+l8r6a1vqi9S/6ogf3n/VwX899xb24 6Cfw7DA0/YPJa5UxKBpmUT5rM+88Mf/+1v3/7823/35QmIm35v65Y8arzKu+D9jc0pXsjBqx/w15/efv /Hf/vhz//rt//yFw5/ElsQTk30co/78Zg9p8P/+p+v i//9n/740+P75nc/TW3c0uV+7vPP/+7z74C/6o8HxVw/eZ8/5rA4BNGvCbyFkuHwz4EbmU+p/ujQRnCu c92ZsR94p60/+/z22//9w7/++2fnuXNiP/vF+y9/dm+c67e1Sk33//z5H//6J78+d+IXP/zht//yo3u8 f4R/9dv/+bvf/uvvf/vHf3+EJxKf/wUwF7qyhx0S/8 lPzlV/19mjmmM61GLD49p9w/H5h9/99z/+/ooe45ie3rI7z72z718+74Ic5pc//bdX6/mnL37z+d1Xv/ z35/RMxC/821/60h0Zj127cOo1ubC+/78wr7f6jFyt/uvf/jdw5pIyU//8xgc/xLieJ//n6v1l5Zp84k 5ib08c4H9sDwickwsnY3+///BI959wDz3ofyhnnsm5 +4+y562N31jGZW3TxU0gHQDX3pbadiRslFIaAF3VCU0aa7HoLeQ9UIBvq4AfMRfgTYt4pKJzUUwotwXz i4GoxphuN8Ost7WbUxQuURMvSlQvDwk1TTIxFhD1vJGbNoOeTPOcV0DyNWTtRqF5YrNtBDFNHN7JWBJo bnQgMiAwIFI+QoCbXD8akhhhCJGxw5LyVUrtPHoxRP FwS1U5qVlrNICdL7WsvP20LFXdS2VauhQ2MLP7UHPqZhBaCQBpgKNuRAVhYEF+EtGhJO5dputxOBWmi1 BqXGsoHDW8hG1sYUbOUAPYPDfZXKqmVhD9r90hchHGTZHfRKKrUG8TspJgqQvuyrEhfTFzGXV1ZpWnFK D0LMCbCFXhHLKDJPLlAISkYEMwCVEhF7ZahJsaLGmD IFACTUoXIYohHjOyo3Z7OTNxxyUJZ8DXBEIwMXEBECLZOdPcAgO8SJh9UUzxY2Y0NznkM9CwMD4VN5Nr SWRkBXLJXFVhxnHtHP2HyiVzsI5gGLuUIFUOBMsBLVtfDsQ5u26zvxYLPWVsIIWjDPutZJJnFJVfELYn DGUzPEZtXKFzNSRiLK1PL6AxMMLwWHSRHCC7g6UmRQ AlhzmnglnwHg0kvcKyYjq+OpsfUAWnj9GfATkhO9A2lYScT0XrU9IbQR7JfYTcHZgqRIBbRHGhJVMuE1 99sbMcTP6+HR3ej1MtHiykKSNFTVZvOFCeEIKdFCF0YnFeXAQrAHHhGVAiScH5YgCcJfXSYXPfZTZ2UL hmYTBzVIEyKVKvEEjwPPWrIKJ7IDd5OTJiNKKgSN7y WsOsKEMhCqJ6KKUmLNEzVLCbifJKWBAsEOXqVMHuUSJ4XRCzQLSbMRkuPZNbEVAsMPB7RGWoVWGgDD9g SdEoPFKiMMMjRzbqWPPsMEIdszTGQIZdAXRuINM3OvRvVWYbXTQoFQfbVFLwUMBlDmj5INRlFBRmBO3l NqJdLEPqURX5HAzxBBBgPRLewjEQMSEaNPFtSTSlWv PlQOOyYFShWUkoFXLcBTSsNdOiTUPfYEBvFX9hNeVpZXBlHVM3QZAbIXWlQUXkdjJAJNPjOGGlFLo0OG YgJSHgDSPlEErfMYDpKWWzTOB1CAOkYXGiNZ3aKbUdZUZyBBNcDNRwKFPdGTCssoMNLCDfPPIzXRP3RJ TkZKHkFUFdRIomHRJxOXYyExk5RNZgXKOdWI5hFiYm LRMeEPE1DAFsHTElVGAciiENMRFxZZY3HDV0ACBsWZNcOQIsXLwtULSvQPMoBjV0HFOsQOXmCP6xGmIq LOWlCCX8IcYqTGJaKXGewqBUPOMkNNRgCBB5GpDeCNIyLLKlFDmlCOYdDZKtNQNaHBA1YOE2HADtMxDn OErdLFKAZKkKG9ZzkrXrQkOSO3psEe0xTqAzKFEDE6 Zjz1BvVKNtMTVYHv4+EvN5LZB2zXKlRqe9SZr4WyquELLALs== ID Date Data Source [id number] 11/24/2019 08:34:47 AM [facility] Name Value Range Interpretation Code Description Data Anjelica rce(s) Supporting Document(s) Glucose [Mass/volume] in Capillary blood by Glucometer 162 mg/dL 70- 140 [facility] ID Date Data Source [id number] 11/24/2019 04:52:40 AM [facility] Value Range Interpretation Code Description Data Anjelica rce(s) Supporting Document(s) Glucose [Mass/volume] in Capillary blood by Glucometer 132 mg/dL 70- 140 [facility] ID Date Data Source [id number] 11/24/2019 05:08:17 AM [facility] Value Range Interpretation Code Description Data Anjelica rce(s) Supporting Document(s) Leukocytes [#/volume] in Blood by Automated count 7.9 10*3/uL 4-10 [facility] Erythrocytes [#/volume] in Blood by Automated count 3.11 10*6/uL 4.1- 5.3 L [facility] Hemoglobin [Mass/volume] in Blood 9.1 g/dL 11.5-15.5 L [facility] Hematocrit [Volume Fraction] of Blood by Automated count 27.9 % 3 6-45 L [facility] Erythrocyte mean corpuscular volume [Entitic volume] by Auto mated count 89.7 fL 80-96 [facility] Erythrocyte mean corpuscular hemoglobin [Entitic mass] by Automated count 29.2 pg 27-33 [facility] Erythrocyte mean corpuscular hemoglobin concentration [Mass/volume] by Automated count 32.6 g/dL 32.0-36.0 [facility] width [Ratio] by Automated count 18.1 % 11.5-14.5 H [facility] Platelets [#/volume] in Blood by Automated count 381 10*3/uL 150-400 [facility] Differential cell count method - Blood [facility] Neutrophils/100 leukocytes in Blood by Automated count 56 % [facility] Lymphocytes/100 leukocytes in Blood by Automated count 32 % [facility] Monocytes/100 leukocytes in Blood by Automated count 8 % [facility] Eosinophils/100 leukocytes in Blood by Automated count 3 % [facility] Basophils/100 leukocytes in Blood by Automated count 1 % [facility] Neutrophils [#/volume] in Blood by Automated count 4.46 10*3/uL 1.8-7 .0 [facility] Lymphocytes [#/volume] in Blood by Automated count 2.54 10*3/uL 1.2-4 .0 [facility] Monocytes [#/volume] in Blood by Automated count 0.60 10*3/uL 0-0.8 [facility] Eosinophils [#/volume] in Blood by Automated count 0.25 10*3/uL 0-0.5 [facility] Basophils [#/volume] in Blood by Automated count 0.09 10*3/uL 0-0.2 [facility] Nucleated erythrocytes/100 leukocytes [Ratio] in Blood by Automated count 0 /100{WBCs} 0-0 [facility] ID Date Data Source [id number] 11/24/2019 05:30:40 AM [facility] Name Value Range Interpretation Code Description Data Anjelica rce(s) Supporting Document(s) Bicarbonate [Moles/volume] in Serum 42 mmol/L 22-29 [facility] Results called to and read back by ANGELIQUE YUSUF RN ON 9F AT [phone] BY [id number] Chloride [Moles/volume] in Serum or Plasma 104 mmol/L 98-107 [facility] Creatinine [Mass/volume] in Serum or Plasma 0.78 mg/dL 0.50-0.90 [facility] Glucose [Mass/volume] in Serum or Plasma 145 mg/dL 70-140 H [facility] Potassium [Moles/volume] in Serum or Plasma 4.8 mmol/L 3.4-5.1 [facility] Sodium [Moles/volume] in Serum or Plasma 154 mmol/L 136-145 [facility] Urea nitrogen [Mass/volume] in Serum or Plasma 26 mg/dL 6-20 [facility] Anion gap 3 in Serum or Plasma 9 mmol/L 8-15 [facility] Osmolality of Serum or Plasma by calculation 325 mosm/kg 275-300 [facility] Creatinine/Urea nitrogen [Mass Ratio] in Serum or Plasma 33 [facility] Calcium [Mass/volume] in Serum or Plasma 9.9 mg/dL 8.6-10.0 [facility] Glomerular filtration rate/1.73 sq M pre dicted among non-blacks [Volume Rate/Area] in Serum or Plasma by Creatinine-based formula (MDRD) >6 0 [facility] Glomerular filtration rate/1.73 sq M pre dicted among blacks [Volume Rate/Area] in Serum or Plasma by Creatinine-based formula (MDRD) >60 [facility] ID Date Data Source [id number] [facility] Interpretation Code Description Data Anjelica rce(s) Supporting Document(s) Glucose [Mass/volume] in Capillary blood by Glucometer 178 mg/dL 70- 140 H [facility] ID Date Data Source [id number] 11/23/2019 08:24:16 PM [facility] Value Range Interpretation Code Description Data Anjelica rce(s) Supporting Document(s) Glucose [Mass/volume] in Capillary blood by Glucometer 160 mg/dL 70- 140 H [facility] ID Date Data Source [id number] 11/23/2019 05:00:56 PM [facility] Value Range Interpretation Code Description Data Anjelica rce(s) Supporting Document(s) Glucose [Mass/volume] in Capillary blood by Glucometer 170 mg/dL 70- 140 H [facility] ID Date Data Source [id number] 11/23/2019 12:41:15 PM [facility] Value Range Interpretation Code Description Data Anjelica rce(s) Supporting Document(s) Glucose [Mass/volume] in Capillary blood by Glucometer 197 mg/dL 70- 140 [facility] ID Date Data Source [id number] 11/23/2019 11:52:25 AM [facility] Value Range Interpretation Code Description Data Anjelica rce(s) Supporting Document(s) Troponin T.cardiac [Mass/volume] in Serum or Plasma 0.27 ng/mL <0.01 [facility] No Significant Change since last result called ID Date Data Source [id number] 11/23/2019 10:56:38 AM [facility] XR CHEST FRONTAL ONLY [id number] RESULTI nterpreted by:Albin Quach MDINDICATION: 53-year-old female evaluation of lung status.TECHNIQUE: 30 degrees portable AP view of the chest is obtained.COMPARISON: Radiograph dated 11/22/2019.FINDINGS: Lines and Devices: The right-sided PICC with the tip projecting over the right atrium. Enteric tube with the tip below the diaphragm out of [id number]..The chest wall and visualized osseous structures are [...] Date Data Source [id number] 11/23/2019 08:12:09 AM [facility] Name Value Range Interpretation Code Description Data Anjelica rce(s) Supporting Document(s) Glucose [Mass/volume] in Capillary blood by Glucometer 188 mg/dL 70- 140 H [facility] ID Date Data Source [id number] 11/23/2019 06:20:04 AM [facility] Name Value Range Interpretation Code Description Data Anjelica rce(s) Supporting Document(s) Troponin T.cardiac [Mass/volume] in Serum or Plasma 0.25 ng/mL <0.01 [facility] No Significant Change since last result called ID Date Data Source [id number] 11/23/2019 05:25:49 AM [facility] Name Value Range Interpretation Code Description Data Anjelica rce(s) Supporting Document(s) Glucose [Mass/volume] in Capillary blood by Glucometer 182 mg/dL 70- 140 H [facility] ID Date Data Source [id number] 11/23/2019 02:11:07 AM [facility] Name Value Range Interpretation Code Description Data Anjelica rce(s) Supporting Document(s) pH of Arterial blood 7.51 7.38-7.44 [facility] Carbon dioxide [Partial pressure] in Arterial blood 54 mm[Hg] 35-40 [facility] Oxygen [Partial pressure] in Arterial blood 113 mmHg 95-100 [facility] Oxygen saturation in Arterial blood 99 % 94-100 [facility] Base excess in Arterial blood by calculation 17 [facility] Carbon dioxide, total [Moles/volume] in Arterial blood 45 mmol/L [facility] Oxygen/Inspired gas setting [Volume Fraction] Ventilator [facility] ID Date Data Source [id number] 11/23/2019 01:29:06 AM [facility] Name Value Range Interpretation Code Description Data Anjelica rce(s) Supporting Document(s) Glucose [Mass/volume] in Capillary blood by Glucometer 187 mg/dL 70- 140 H [facility] ID Date Data Source [id number] 11/23/2019 12:59:15 AM [facility] Name Value Range Interpretation Code Description Data Anjelica rce(s) Supporting Document(s) Leukocytes [#/volume] in Blood by Automated count 9.1 10*3/uL 4-10 [facility] Erythrocytes [#/volume] in Blood by Automated count 3.16 10*6/uL 4.1- 5.3 L [facility] Hemoglobin [Mass/volume] in Blood 9.0 g/dL 11.5-15.5 [facility] Hematocrit [Volume Fraction] of Blood by Automated count 28.4 % 3 6-45 L [facility] Erythrocyte mean corpuscular volume [Entitic volume] by Auto mated count 89.9 fL 80-96 [facility] Erythrocyte mean corpuscular hemoglobin [Entitic mass] by Automated count 28.6 pg 27-33 [facility] Erythrocyte mean corpuscular hemoglobin concentration [Mass/volume] by Automated count 31.8 g/dL 32.0-36.0 [facility] E[facility]th[facility] distribution width [Ratio] by Automated count 18.4 % 11.5-14.5 H [facility] Platelets [#/volume] in Blood by Automated count 406 10*3/uL 150-400 [facility] Differential cell count method - Blood [facility] Neutrophils/100 leukocytes in Blood by Automated count 67 % [facility] Lymphocytes/100 leukocytes in Blood by Automated count 22 % [facility] Monocytes/100 leukocytes in Blood by Automated count 7 % [facility] Eosinophils/100 leukocytes in Blood by Automated count 3 % [facility] Basophils/100 leukocytes in Blood by Automated count 1 % [facility] Neutrophils [#/volume] in Blood by Automated count 6.12 10*3/uL 1.8-7 .0 [facility] Lymphocytes [#/volume] in Blood by Automated count 2.03 10*3/uL 1.2-4 .0 [facility] Monocytes [#/volume] in Blood by Automated count 0.64 10*3/uL 0-0.8 [facility] Eosinophils [#/volume] in Blood by Automated count 0.26 10*3/uL 0-0.5 [facility] Basophils [#/volume] in Blood by Automated count 0.06 10*3/uL 0-0.2 [facility] Nucleated erythrocytes/100 leukocytes [Ratio] in Blood by Automated count 0 /100{WBCs} 0-0 [facility] ID Date Data Source [id number] 11/23/2019 01:38:10 AM [facility] Name Value Range Interpretation Code Description Data Anjelica rce(s) Supporting Document(s) Bicarbonate [Moles/volume] in Serum 41 mmol/L 22-29 [facility] Results called to and read back by TALHA JORGENSEN RN 9F 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 Automated count 72 % [facility] Lymphocytes/100 leukocytes in Blood by Automated count 20 % [facility] Monocytes/100 leukocytes in Blood by Automated count 7 % [facility] Eosinophils/100 leukocytes in Blood by Automated count 1 % [facility] Basophils/100 leukocytes in Blood by Automated count 0 % [facility] Neutrophils [#/volume] in Blood by Automated count 7.01 10*3/uL 1.8-7 .0 H [facility] Lymphocytes [#/volume] in Blood by Automated count 1.98 10*3/uL 1.2-4 .0 [facility] Monocytes [#/volume] in Blood by Automated count 0.65 10*3/uL 0-0.8 [facility] Eosinophils [#/volume] in Blood by Automated count 0.12 10*3/uL 0-0.5 [facility] Basophils [#/volume] in Blood by Automated count 0.03 10*3/uL 0-0.2 [facility] Nucleated erythrocytes/100 leukocytes [Ratio] in Blood by Automated count 0 /100{WBCs} 0-0 [facility] ID Date Data Source [id number] 11/20/2019 04:11:14 AM [facility] Name Value Range Interpretation Code Description Data Anjelica rce(s) Supporting Document(s) Bicarbonate [Moles/volume] in Serum 38 mmol/L 22-29 H [facility] Chloride [Moles/volume] in Serum or Plasma 105 mmol/L 98-107 [facility] Creatinine [Mass/volume] in Serum or Plasma 0.91 mg/dL 0.50-0.90 H [facility] Glucose [Mass/volume] in Serum or Plasma 216 mg/dL 70-140 H [facility] Potassium [Moles/volume] in Serum or Plasma 4.4 mmol/L 3.4-5.1 [facility] Sodium [Moles/volume] in Serum or Plasma 151 mmol/L 136-145 [facility] Urea nitrogen [Mass/volume] in Serum or Plasma 39 mg/dL 6-20 H [facility] Anion gap 3 in Serum or Plasma 9 mmol/L 8-15 [facility] Osmolality of Serum or Plasma by calculation 329 mosm/kg 275-300 H [facility] Creatinine/Urea nitrogen [Mass Ratio] in Serum or Plasma 43 [facility] Calcium [Mass/volume] in Serum or Plasma 9.1 mg/dL 8.6-10.0 [facility] Glomerular filtration rate/1.73 sq M pre dicted among non-blacks [Volume Rate/Area] in Serum or Plasma by Creatinine-based formula (MDRD) 71 mL/min/1.73m2 >60 [facility] Glomerular filtration rate/1.73 sq M pre dicted among blacks [Volume Rate/Area] in Serum or Plasma by Creatinine-based formula (MDRD) 82 mL/min/1.73m2 >60 [facility] ID Date Data Source [id number] 11/20/2019 04:11:14 AM [facility] Name Value Range Interpretation Code Description Data Anjelica rce(s) Supporting Document(s) Magnesium [Mass/volume] in Serum or Plasma 2.4 mg/dL 1.6-2.6 [facility] ID Date Data Source [id number] 11/20/2019 04:11:14 AM [facility] Value Range Interpretation Code Description Data Anjelica rce(s) Supporting Document(s) Phosphate [Mass/volume] in Serum or Plasma 4.2 mg/dL 2.5-4.5 [facility] ID Date Data Source [id number] 11/20/2019 09:05:07 AM [facility] Value Range Interpretation Code Description Data Anjelica rce(s) Supporting Document(s) Albumin [Mass/volume] in Serum or Plasma by Bromocresol green (BCG) dye binding method 3.8 g/dL 3.5-5.2 [facility] ID Date Data Source [id number] 11/20/2019 12:54:23 AM [facility] Value Range Interpretation Code Description Data Anjelica rce(s) Supporting Document(s) Glucose [Mass/volume] in Capillary blood by Glucometer 253 mg/dL 70- 140 H [facility] ID Date Data Source [id number] 11/19/2019 08:52:36 PM [facility] Value Range Interpretation Code Description Data Anjelica rce(s) Supporting Document(s) Glucose [Mass/volume] in Capillary blood by Glucometer 130 mg/dL 70- 140 [facility] ID Date Data Source [id number] 11/19/2019 04:38:12 PM [facility] XR CHEST FRONTAL ONLY [id number] RESULTI nterpreted by:Jay Reyez MDINDICATION: Evaluate PICC line placement.TECHNIQUE: 2 frontal radiographs of the chest were obtained. 75 degrees upright.COMPARISON: Chest radiograph dated 11/16/2019.FINDINGS: Right subclavian central venous catheter remains in stable position with the distal tip in the right atrium. Enteric tube traverses below the diaphragm with the distal tip out of the [id number]. The cardiomediastinal contours are unchanged. Again noted [...] rce(s) Supporting Document(s) ID Date Data Source [id number] 11/19/2019 05:35:02 PM [facility] Value Range Interpretation Code Description Data Anjelica rce(s) Supporting Document(s) Albumin [Mass/volume] in Serum or Plasma by Bromocresol green (BCG) dye binding method 3.1 g/dL 3.5-5.2 L [facility] ID Date Data Source [id number] 11/19/2019 04:15:35 PM [facility] Value Range Interpretation Code Description Data Anjelica rce(s) Supporting Document(s) Glucose [Mass/volume] in Capillary blood by Glucometer 92 mg/dL 70- 140 [facility] ID Date Data Source [id number] [facility]49[facility] Value Range Interpretation Code Description Data Anjelica rce(s) Supporting Document(s) pH of Arterial blood 7.45 7.38-7.44 H [facility] Carbon dioxide [Partial pressure] in Arterial blood 56 mm[Hg] 35-40 H [facility] Oxygen [Partial pressure] in Arterial blood 147 mmHg 95-100 H [facility] Oxygen saturation in Arterial blood 99 % 94-100 [facility] Base excess in Arterial blood by calculation 13 [facility] Carbon dioxide, total [Moles/volume] in Arterial blood 40 mmol/L [facility] Oxygen/Inspired gas setting [Volume Fraction] Ventilator [facility] ID Date Data Source [id number] 11/19/2019 12:46:46 PM [facility] Name Value Range Interpretation Code Description Data Anjelica e(s) Supporting Document(s) Glucose [Mass/volume] in Capillary blood by Glucometer 184 mg/dL 70- 140 H [facility] ID Date Data Source [id number] 11/19/2019 11:40:40 AM [facility] XR CHEST FRONTAL ONLY [id number] RESULTI nterpreted by:Afshan Pereira single view.INDICATION: Increasing [...] rce(s) Supporting Document(s) ID Date Data Source [id number] 11/19/2019 08:08:26 AM [facility] Name Value Range Interpretation Code Description Data Anjelica rce(s) Supporting Document(s) Glucose [Mass/volume] in Capillary blood by Glucometer 212 mg/dL 70- 140 H [facility] ID Date Data Source [id number] 11/19/2019 03:59:53 AM [facility] Name Value Range Interpretation Code Description Data Anjelica rce(s) Supporting Document(s) Leukocytes [#/volume] in Blood by Automated count 12.9 10*3/uL 4-10 H [facility] Erythrocytes [#/volume] in Blood by Automated count 3.13 10*6/uL 4.1- 5.3 L [facility] Hemoglobin [Mass/volume] in Blood 8.9 g/dL 11.5-15.5 [facility] Hematocrit [Volume Fraction] of Blood by Automated count 27.8 % 3 6-45 L [facility] Erythrocyte mean corpuscular volume [Entitic volume] by Auto mated count 88.8 fL 80-96 [facility] Erythrocyte mean corpuscular hemoglobin [Entitic mass] by Automated count 28.3 pg 27-33 [facility] Erythrocyte mean corpuscular hemoglobin concentration [Mass/volume] by Automated count 31.9 g/dL 32.0-36.0 [facility] distribution width [Ratio] by Automated count 17.3 % 11.5-14.5 [facility] Platelets [#/volume] in Blood by Automated count 489 10*3/uL 150-400 H [facility] Differential cell count method - Blood [facility] Neutrophils/100 leukocytes in Blood by Automated count 80 % [facility] Lymphocytes/100 leukocytes in Blood by Automated count 12 % [facility] Monocytes/100 leukocytes in Blood by Automated count 7 % [facility] Eosinophils/100 leukocytes in Blood by Automated count 0 % [facility] Basophils/100 leukocytes in Blood by Automated count 1 % [facility] Neutrophils [#/volume] in Blood by Automated count 10.40 10*3/uL 1.8- 7.0 H [facility] Lymphocytes [#/volume] in Blood by Automated count 1.52 10*3/uL 1.2-4 .0 [facility] Monocytes [#/volume] in Blood by Automated count 0.86 10*3/uL 0-0.8 H [facility] Eosinophils [#/volume] in Blood by Automated count 0.01 10*3/uL 0-0.5 [facility] Basophils [#/volume] in Blood by Automated count 0.13 10*3/uL 0-0.2 [facility] Nucleated erythrocytes/100 leukocytes [Ratio] in Blood by Automated count 0 /100{WBCs} 0-0 [facility] ID Date Data Source [id number] 11/19/2019 04:25:34 AM [facility] Name Value Range Interpretation Code Description Data Anjelica rce(s) Supporting Document(s) Bicarbonate [Moles/volume] in Serum 34 mmol/L 22-29 H [facility] Chloride [Moles/volume] in Serum or Plasma 107 mmol/L 98-107 [facility] Creatinine [Mass/volume] in Serum or Plasma 0.80 mg/dL 0.50-0.90 [facility] Glucose [Mass/volume] in Serum or Plasma 238 mg/dL 70-140 H [facility] Potassium [Moles/volume] in Serum or Plasma 4.7 mmol/L 3.4-5.1 [facility] Sodium [Moles/volume] in Serum or Plasma 151 mmol/L 136-145 H [facility] Urea nitrogen [Mass/volume] in Serum or Plasma 40 mg/dL 6-20 H [facility] Anion gap 3 in Serum or Plasma 10 mmol/L 8-15 [facility] Osmolality of Serum or Plasma by calculation 329 mosm/kg 275-300 H [facility] Creatinine/Urea nitrogen [Mass Ratio] in Serum or Plasma 50 [facility] Calcium [Mass/volume] in Serum or Plasma 9.1 mg/dL 8.6-10.0 [facility] Glomerular filtration rate/1.73 sq M pre dicted among non-blacks [Volume Rate/Area] in Serum or Plasma by Creatinine-based formula (MDRD) 83 mL/min/1.73m2 >60 [facility] Glomerular filtration rate/1.73 sq M pre dicted among blacks [Volume Rate/Area] in Serum or Plasma by Creatinine-based formula (MDRD) >60 [facility] ID Date Data Source [id number] 11/19/2019 04:25:34 AM [facility] Name Value Range Interpretation Code Description Data Anjelica rce(s) Supporting Document(s) Magnesium [Mass/volume] in Serum or Plasma 2.6 mg/dL 1.6-2.6 [facility] ID Date Data Source [id number] 11/19/2019 04:25:34 AM [facility] Value Range Interpretation Code Description Data Anjelica rce(s) Supporting Document(s) Phosphate [Mass/volume] in Serum or Plasma 4.5 mg/dL 2.5-4.5 [facility] ID Date Data Source [id number] 11/19/2019 12:24:27 AM [facility] Value Range Interpretation Code Description Data Anjelica rce(s) Supporting Document(s) Glucose [Mass/volume] in Capillary blood by Glucometer 190 mg/dL 70- 140 H [facility] ID Date Data Source [id number] 11/18/2019 09:05:52 PM [facility] Value Range Interpretation Code Description Data Anjelica rce(s) Supporting Document(s) Glucose [Mass/volume] in Capillary blood by Glucometer 241 mg/dL 70- 140 H [facility] ID Date Data Source [id number] 11/18/2019 04:29:23 PM [facility] Value Range Interpretation Code Description Data Anjelica rce(s) Supporting Document(s) [facility] [id number]XpT4ErWYF0hS0mAPJ6SHmPJcWoJoDtDhL4 lbm [file] [id number]+[id number]+Zs2Zm1PhjwF6miDdKPf5IUH4SDjgPNTJZr0L ID Date Data Source [id number] [facility] Code Description Data Anjelica rce(s) Supporting Document(s) Glucose [Mass/volume] in Capillary blood by Glucometer 236 mg/dL 70- 140 H [facility] ID Date Data Source [id number] 11/18[facility]2019 12:[facility] Interpretation Code Description Data Anjelica rce(s) Supporting Document(s) Glucose [Mass/volume] in Capillary blood by Glucometer 230 mg/dL 70- 140 H [facility] ID Date Data Source [id number] 11/18/2019 08:17:[facility] Interpretation Code Description Data Anjelica rce(s) Supporting Document(s) Glucose [Mass/volume] in Capillary blood by Glucometer 123 mg/dL 70- 140 [facility] ID Date Data Source [id number] 11/18/2019 04:28:[facility] Interpretation Code Description Data Anjelica rce(s) Supporting Document(s) Glucose [Mass/volume] in Capillary blood by Glucometer 251 mg/dL 70- 140 H [facility] ID Date Data Source [id number] 11/18/2019 04:55:09 AM [facility] Name Value Range Interpretation Code Description Data Anjelica rce(s) Supporting Document(s) Leukocytes [#/volume] in Blood by Automated count 12.7 10*3/uL 4-10 H [facility] Erythrocytes [#/volume] in Blood by Automated count 3.13 10*6/uL 4.1- 5.3 L [facility] Hemoglobin [Mass/volume] in Blood 8.8 g/dL 11.5-15.5 L [facility] Hematocrit [Volume Fraction] of Blood by Automated count 27.4 % 3 6-45 L [facility] Erythrocyte mean corpuscular volume [Entitic volume] by Auto mated count 87.7 fL 80-96 [facility] Erythrocyte mean corpuscular hemoglobin [Entitic mass] by Automated count 28.3 pg 27-33 [facility] Erythrocyte mean corpuscular hemoglobin concentration [Mass/volume] by Automated count 32.2 g/dL 32.0-36.0 [facility] Erythrocyte distribution width [Ratio] by Automated count 16.6 % 11.5-14.5 H [facility] Platelets [#/volume] in Blood by Automated count 485 10*3/uL 150-400 H [facility] Differential cell count method - Blood [facility] Neutrophils/100 leukocytes in Blood by Automated count 79 % [facility] Lymphocytes/100 leukocytes in Blood by Automated count 13 % [facility] Monocytes/100 leukocytes in Blood by Automated count 8 % [facility] Eosinophils/100 leukocytes in Blood by Automated count 0 % [facility] Basophils/100 leukocytes in Blood by Automated count 0 % [facility] Neutrophils [#/volume] in Blood by Automated count 10.04 10*3/uL 1.8- 7.0 H [facility] Lymphocytes [#/volume] in Blood by Automated count 1.60 10*3/uL 1.2-4 .0 [facility] Monocytes [#/volume] in Blood by Automated count 1.01 10*3/uL 0-0.8 H [facility] Eosinophils [#/volume] in Blood by Automated count 0.01 10*3/uL 0-0.5 [facility] Basophils [#/volume] in Blood by Automated count 0.02 10*3/uL 0-0.2 [facility] Nucleated erythrocytes/100 leukocytes [Ratio] in Blood by Automated count 0 /100{WBCs} 0-0 [facility] ID Date Data Source [id number] 11/18/2019 05:13:23 AM [facility] Name Value Range Interpretation Code Description Data Anjelica rce(s) Supporting Document(s) Magnesium [Mass/volume] in Serum or Plasma 2.4 mg/dL 1.6-2.6 [facility] ID Date Data Source [id number] 11/18/2019 05:13:23 AM [facility] Name Value Range Interpretation Code Description Data Anjelica rce(s) Supporting Document(s) Phosphate [Mass/volume] in Serum or Plasma 3.8 mg/dL 2.5-4.5 [facility] ID Date Data Source [id number] 11/18/2019 08:16:24 AM [facility] Name Value Range Interpretation Code Description Data Anjelica rce(s) Supporting Document(s) Bicarbonate [Moles/volume] in Serum 32 mmol/L 22-29 H [facility] Chloride [Moles/volume] in Serum or Plasma 107 mmol/L 98-107 [facility] Creatinine [Mass/volume] in Serum or Plasma 0.76 mg/dL 0.50-0.90 [facility] Glucose [Mass/volume] in Serum or Plasma 251 mg/dL 70-140 H [facility] Potassium [Moles/volume] in Serum or Plasma 4.3 mmol/L 3.4-5.1 [facility] Sodium [Moles/volume] in Serum or Plasma 153 mmol/L 136-145 H [facility] Urea nitrogen [Mass/volume] in Serum or Plasma 39 mg/dL 6-20 H [facility] Anion gap 3 in Serum or Plasma 14 mmol/L 8-15 [facility] Osmolality of Serum or Plasma by calculation 334 mosm/kg 275-300 H [facility] Creatinine/Urea nitrogen [Mass Ratio] in Serum or Plasma 51 [facility] Calcium [Mass/volume] in Serum or Plasma 8.7 mg/dL 8.6-10.0 [facility] Glomerular filtration rate/1.73 sq M pre dicted among non-blacks [Volume Rate/Area] in Serum or Plasma by Creatinine-based formula (MDRD) >6 0 [facility] Glomerular filtration rate/1.73 sq M pre dicted among blacks [Volume Rate/Area] in Serum or Plasma by Creatinine-based formula (MDRD) >60 [facility] ID Date Data Source [id number] 11/18/2019 12:02:58 AM EDT [facility] Name Value Range Interpretation Code Description Data Anjelica rce(s) Supporting Document(s) Glucose [Mass/volume] in Capillary blood by Glucometer 138 mg/dL 70- 140 [facility] ID Date Data Source [id number] 11/17/2019 07:55:43 PM EDT [facility] Name Value Range Interpretation Code Description Data Anjelica rce(s) Supporting Document(s) Glucose [Mass/volume] in Capillary blood by Glucometer 141 mg/dL 70- 140 H [facility] ID Date Data Source [id number] 11/17/2019 05:38:54 PM EDT [facility] XR CHEST FRONTAL ONLY [id number] RESULTI nterpreted by:Maira Reyez MDINDICATION: Evaluate pulmonary [...] rce(s) Supporting Document(s) ID Date Data Source [id number] 11/17/2019 04:50:50 PM [facility] Name Value Range Interpretation Code Description Data Anjelica rce(s) Supporting Document(s) Glucose [Mass/volume] in Capillary blood by Glucometer 105 mg/dL 70- 140 [facility] ID Date Data Source [id number] 11/17/2019 12:29:41 PM EDT [facility] Name Value Range Interpretation Code Description Data Anjelica rce(s) Supporting Document(s) Glucose [Mass/volume] in Capillary blood by Glucometer 87 mg/dL 70- 140 [facility] ID Date Data Source [id number] 11/17/2019 09:10:50 AM EDT [facility] Name Value Range Interpretation Code Description Data Anjelica rce(s) Supporting Document(s) Glucose [Mass/volume] in Capillary blood by Glucometer 128 mg/dL 70- 140 [facility] ID Date Data Source [id number] 11/17/2019 08:53:23 AM EDT [facility] Name Value Range Interpretation Code Description Data Anjelica rce(s) Supporting Document(s) [facility] BPADTh1gRbRXZoJlc4KqBhDcHEGxYC6bgbf3M1E4eRVpX9PwoWGru7ueG4LdM1SzITHaRAIEKR6DqKMy jb2 [file] nUgnMogMIpPIJLKILCKbCPsAdXEs+FiOUIgUIkbEiF Az1PArjt137NlxTIlUJMABsJRZC3I9nKr8Re1YFwzz1oO41cJzUvqwi2Xi7MwYIOxiF7TxqOXmc9r/Wt aBIvFkMNVPTzd1bgFf/J/O8wyeB+gD7cC2OyVqMJlzWMQPJwC12DuFKdDbG/OvrYStAkobw0BTqmQGR5 WZ1Ks79NmyY43cIv5XkNsROw69jiojMa018HhrI98q f3fIVp50spgs7znOe96iMQiwjPvARNzzysQTMneixQgBN7mh7GT7BU0NRd9L70MF+VUkOgobPaind1X4 CpEGcAEotZJaJszmdGOuEavKWrYFKGZJ0BnJxLTDA7MlanND3w0eXOLUU4yJ5CHigkP5BQXryN/FxMcS cSbnYzkOh/GhvO8EiztlSqcSv2KBol2QtzTIpyxcQ/ UQngw+zx0QY13xb6wz48trSHuUnUwIkBWeeY5jvecnHj71T8mcygw9yM3nJWDkkXmJTp7FeE/b0Y50Xg GBRjOEM0YWUXGs6xutJVdM4+Jah5Tj6pR4opnPgVDs16H4JUPNp5bjbYyWaxeTkN/z1s3c3RiLJwcq89 Lx41R7KAUT8YtS6xBKZYM4Rs9A6EnQ9iUM75B8ZTZz io/siiyP96dsaJeXMf57feCVN8uFc9GvI1JdB2xZaTwNjKoOgc0XmqUshEnyYnmD1kS+QF4pbtT3EZjc n/Ur+Yqvr5hWQcc1zFH9rcd6+6yDt8/4subD0eL/4TuLD7YOrncY+pq9wG/pUzkXzEO3yfu1+6yXSqQS aSEdpE5nQ0HweZrMR3pALfVVg44mPiEPTJs+xBAMvn X4sPe6HOocQT+q+WeLxgpyO3zT3yO1li4yJDTznqRMmREgRXW3aQTcCw1TqGfjTWzDZEsH4eXFQjD+ln B9uFpHkoX5VLQMPu8RDhJSnKNSyXjUopJ7hxwVpDfm1ip9OvlltQ4s2bOu2/kI/XHUxMdyekdx5+g3xZ 5rObO1dy5atDjCl+Z7syu6dXE+lvPoW+Y3Wo+4s8ZO yfpzJdQX4pXt76w5Idx0nPNIs9IMLWGfEL1XANM52y5YJspk161gtGW0w05mCntqMyWYfph1Vfhku4Le O+8E9iQTA7q6OZCv1A70u/hYzqTasSerd+zRFB/MkPM21hZIswK3wjcB8CXGT4MC1G0IL0vttSYzi0yO Kji5iBT5v5dbR/DPaCOIdQEpgSfmTBsvVs6DW0pFUt GG+xmNR+jJzGveRed0RejvHa0SipV3QkhXTw0O9sJTwcVd1PGCLjzUBkHtg+tK7PGuqkw76xQYtugi6p hHXRzrqItjHXVxrHN/Yuf+hFUovU1GwquJXONaGJZkTOvdt4EbC9R1oLutsE/Ylu3icmNjbe9vb2n1VZ 73bHE9Lt/LZvKgvDa8hw0StxOfXk0CBGhviL8VP37+ QFz7pmwlCWbR0OAett0nRrsy9jWxU1q/9QLN13QOXNYIRDPHZNHKtAQxzkgmMqMRkN98JDHUS5hJloTI tplAX0xuIF7BW8IHK/OdB/OdB/OdB/OdDx/LEYhgz/HsrxZdiFqMLqZ7JhP9N+Y7D+Q7f/93P/v85rks vi3o8+/e/tgmnznmo27+v94+oi5oR2m4NqbY/eq7T5 8/fvqHt68+iq82V01+3Dwu9HO/+GXAB7cBkdjxoU6L230nP7xcV/6PX3/7E9+++VJ/GtTCmza9uX4vqd z997/+9l/ssi8n9f1/+Mjv1Acgu/r6yw/jpP09964/8/HT919//pef7J+/vb19+u7Xn7/+9uPbp4+fP3 169JfsyovTomg71W24i8k1XdqGJ/Xlhd1wa45/+/zh y1/7a8rhYt250Yj/3us9W2b/9puPP//89rNff/vVNx/kkirpa5jg/tGnI1650+X/+Tf+pZwb+yp00mrz 1i776ssay/Xxy69//vWXb5/f/vnDbz6+azyLf679+uWHb77+/AST6821VV/O5Q/n78hanPiix//41ds/ ff7yb/zazmYg899ryX766t//jZ/dr+/9s3/+xcdv37 787pe/+vDpdch/fj3c+x/khqr194VhDOEmy6i5i45J4zJn68H78nVTE3/fPt2P5+vv337+9kyOUJokD7 9NkfvnX/75T//2h7/88fe/e/sf//X2m6+/+jnLi17rH6amU5+//Pl4sC39+/XHb97+9b+V9a9///bnP7 2Nn66f+dJpY9p99yYRrojhEm4yr151E6w8i3/86X/w iYgQpSx5vz/4G+S8iYweF6/XL/5fgO5+PeD+x+feL4Lq7pqR4/na0ZLEi6UlLaf7FWZW0zSmqHs0safv TqFz/+DT7//t93/7i5nWY96xVg44+H3MziV8ez3s/gp1E75v/iv7+Ic8o6Zvyo9f/ujmxnjZ8OMxpGH6 rB5L2GGHiW6p2U1+/6f//Me3v/zwn79/d/jXh/hNZX nuH/8aO6632IJJ8g087SY+6tPbH/70n7//y//9w7//wlMkEm9fv39cxd285Dd2z5/fv/3uf78u/g9//t OPj+9V5B62tL5miy9n85//6oUeci0+kfn3bmGNf////eqB6sFx0d8BP8ek8k/EZxJCxhCJhdH5xp0e04 C/+smnn3x+++H/+f1//PXLk4+1/+TnH3/0g4aRtto6 e43R//rLv/17m296dbFBc//HH/320NQz3/Avf/jfv/3hP/7ww5/++lwJW1f242//+MW+V3f89Ulrbs/5 82+/KRL72rgwlJ0d/+Dz73/7v/70h9++YyQD35C2ize/+d9frtq7//Muf6Vajk1+//Db//Vfv/3hL7/7 ww9/nJC7WTopf/vlLz9++/n7L/ji3h/Q//+c5T6Yxr 0zW//wP3//Vt7+/H2bzNOzfQ6QcCczt1cI5YHcWz76+UNG5NUc09/Ovt99+jfzu0psxGzEIJ3i+Q9ffv ltu807/mAnrdb2rIiD7h9/PcFoUocabpNkgWAhBS8FTO1dv4MhXvI1ZYBfq1JeNHipFXp1eREbFZqkit Hur6RovxxcD6Otu3UbDaXqHMQcZaToZyv5UHTyRzF7 jCEaCwOsDKRnS0IuNXLoRwX7ZzVfQKDNQH7EFXEnhjPqDjShZME+ZoKnIJ6jftkoQRWfr1FpBLqaIOun OTXnN7S6vDnpURZmE9LtlF23HIZtV1RmpcZ4WNU5OFDrVpQaHBJsaZQbIJGoPVT+BdHyZY3pvbhiSIGd y2FhIDvnHCX0iO9eYTaIOPFCJRnRILfbFdJ2r17oot SLBJUhMAQqYT7TfoAmtMsmlzSvxWBwYMW4SoWmXXG6YUmwREIwFPQDZLJmCQNaMBBwGKXrC2UlhWbrYL kRWPKRVLwAOVkxPgCfe1J7RMJznkVNV1TXIAEfDJQWUMUCGjBlWiH9XNa8ZVvyJ8E8KemhX2VvGI9DD3 KxMZDqYACHXTQtcgOqWU8IzaBhhF0gAEcFKQEUFZvW WXpqNyC7b20xlnNIOULaFJQnCVblSCHmPNWuFBRfBLXnPXLwWMBnZFLuZS6HA7DmXTBwYDTQTIT3g7Zu JOHksbtxtuizUe0zldVnZue+NhclAEBip0OvFOyqO5A3jSMpK2NhK2ChQP0PqGHfSEklTOCtIXElNVDp P927uuHdCS5+CW9el0HbVghzFLWMLZDaKPVjDAEzNX T0LbKeQMUbFPRtBAJvIoB9VmUzWzPWUTLtOXF7LAv1UzHrYESpQLEqGZpzHXEvEBmfIkL2KGLbGVVvKM 5sWbCyXZAeLfV3WNOqLTHzSZPecsKNFSIlXQBsJMOrUBD2AAVzXZCbHRjbGOMtNBFfUUX1SLEeGYLvYA 5vDpVuUFHjVKDrKbhdFMAcAHHsvgSXYAEoNOUnTFU5 PrKkBZGjYQNnDFzxKSPkJSRnQax7JRSqZSPhVR6fSbCkVXTqKKA7AVsmJMTfLMMfhpKWUKUfTPGaRAZf IsKyXQQoLZYlSTpjKMSsGZKwXlTmMQGmGYRkEP9jQkLaWFWtQTN1HTFzYHOjEHOqdvCJGSPsTGWnBAh4 FXTfQQMtMOJuTMsvWABjHFYrRAE3OWMgRRJyRI0tGu OoXLZyPNFmOVBkCTFnDXWdwkNFBDDsFECqBLW2TAHmTTFsSTBvJEfcNDYuSTPrQfl7SIPqGNPwGI9yUm XtQCIzYIR9NIAhOYEeTXFiydBXHMOkVKY9HIW2MeYdPCNlOCUnACtoRZPdTPKlDpU6ITQaOKYqWB2wGh WlLEZyKIY9WxUxWCHeDNJsnmQBWZOvGEIrZDY7RgKw NNRaVQUlFMbeCFNdXIKwTLFdYCP9FOQ5YRJpZeZkKDexTFUHTOgQY2WxehTfMjDHE5cqRc6hXvZrECRG L8Lqw0WhPTMnMCZYGr2+TxN0YXR0oEKzEwx0AOIoZLduRYWFAy== ID Date Data Source [id number] 11/17/2019 06:22:26 AM [facility] Name Value Range Interpretation Code Description Data Anjelica rce(s) Supporting Document(s) Potassium [Moles/volume] in Serum or Plasma 4.4 mmol/L 3.4-5.1 [facility] ID Date Data Source [id number] 11/17/2019 04:27:59 AM [facility] Value Range Interpretation Code Description Data Anjelica rce(s) Supporting Document(s) Glucose [Mass/volume] in Capillary blood by Glucometer 104 mg/dL 70- 140 [facility] ID Date Data Source [id number] 11/17/2019 01:42:35 AM [facility] Value Range Interpretation Code Description Data Anjelica rce(s) Supporting Document(s) Leukocytes [#/volume] in Blood by Automated count 17.7 10*3/uL 4-10 H [facility] Erythrocytes [#/volume] in Blood by Automated count 3.07 10*6/uL 4.1- 5.3 L [facility] Hemoglobin [Mass/volume] in Blood 8.7 g/dL 11.5-15.5 [facility] Hematocrit [Volume Fraction] of Blood by Automated count 26.7 % 3 6-45 L [facility] Erythrocyte mean corpuscular volume [Entitic volume] by Auto mated count 87.0 fL 80-96 [facility] Erythrocyte mean corpuscular hemoglobin [Entitic mass] by Automated count 28.3 pg 27-33 [facility] Erythrocyte mean corpuscular hemoglobin concentration [Mass/volume] by Automated count 32.5 g/dL 32.0-36.0 [facility] width [Ratio] by Automated count 16.3 % 11.5-14.5 H [facility] Platelets [#/volume] in Blood by Automated count 431 10*3/uL 150-400 H [facility] Differential cell count method - Blood [facility] Neutrophils/100 leukocytes in Blood by Automated count 81 % [facility] Lymphocytes/100 leukocytes in Blood by Automated count 12 % [facility] Monocytes/100 leukocytes in Blood by Automated count 7 % [facility] Eosinophils/100 leukocytes in Blood by Automated count 0 % [facility] Basophils/100 leukocytes in Blood by Automated count 0 % [facility] Neutrophils [#/volume] in Blood by Automated count 14.37 10*3/uL 1.8- 7.0 H [facility] Lymphocytes [#/volume] in Blood by Automated count 2.04 10*3/uL 1.2-4 .0 [facility] Monocytes [#/volume] in Blood by Automated count 1.30 10*3/uL 0-0.8 H [facility] Eosinophils [#/volume] in Blood by Automated count 0.01 10*3/uL 0-0.5 [facility] Basophils [#/volume] in Blood by Automated count 0.02 10*3/uL 0-0.2 [facility] Nucleated erythrocytes/100 leukocytes [Ratio] in Blood by Automated count 0 /100{WBCs} 0-0 [facility] ID Date Data Source [id number] 11/17/2019 02:16:41 AM [facility] Name Value Range Interpretation Code Description Data Anjelica rce(s) Supporting Document(s) Bicarbonate [Moles/volume] in Serum 33 mmol/L 22-29 [facility] Chloride [Moles/volume] in Serum or Plasma 110 mmol/L 98-107 [facility] Creatinine [Mass/volume] in Serum or Plasma 0.80 mg/dL 0.50-0.90 [facility] Glucose [Mass/volume] in Serum or Plasma 105 mg/dL 70-140 [facility] Potassium [Moles/volume] in Serum or Plasma 3.4 mmol/L 3.4-5.1 [facility] Sodium [Moles/volume] in Serum or Plasma 156 mmol/L 136-145 [facility] Urea nitrogen [Mass/volume] in Serum or Plasma 37 mg/dL 6-20 [facility] Anion gap 3 in Serum or Plasma 13 mmol/L 8-15 [facility] Osmolality of Serum or Plasma by calculation 331 mosm/kg 275-300 [facility] Creatinine/Urea nitrogen [Mass Ratio] in Serum or Plasma 46 [facility] Calcium [Mass/volume] in Serum or Plasma 9.0 mg/dL 8.6-10.0 [facility] Glomerular filtration rate/1.73 sq M pre dicted among non-blacks [Volume Rate/Area] in Serum or Plasma by Creatinine-based formula (MDRD) 83 mL/min/1.73m2 >60 [facility] Glomerular filtration rate/1.73 sq M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 [Mass/volume] in Blood 7.9 g/dL 11.5-15.5 L [facility] Hematocrit [Volume Fraction] of Blood by Automated count 23.3 % 3 6-45 L [facility] Erythrocyte mean corpuscular volume [Entitic volume] by Auto mated count 85.3 fL 80-96 [facility] Erythrocyte mean corpuscular hemoglobin [Entitic mass] by Automated count 29.1 pg 27-33 [facility] Erythrocyte mean corpuscular hemoglobin concentration [Mass/volume] by Automated count 34.1 g/dL 32.0-36.0 [facility] distribution width [Ratio] by Automated count 15.6 % 11.5-14.5 H [facility] Platelets [#/volume] in Blood by Automated count 298 10*3/uL 150-400 [facility] Differential cell count method - Blood [facility] Neutrophils/100 leukocytes in Blood by Automated count 79 % [facility] Lymphocytes/100 leukocytes in Blood by Automated count 14 % [facility] Monocytes/100 leukocytes in Blood by Automated count 7 % [facility] Eosinophils/100 leukocytes in Blood by Automated count 0 % [facility] Basophils/100 leukocytes in Blood by Automated count 0 % [facility] Neutrophils [#/volume] in Blood by Automated count 11.12 10*3/uL 1.8- 7.0 H [facility] Lymphocytes [#/volume] in Blood by Automated count 2.02 10*3/uL 1.2-4 .0 [facility] Monocytes [#/volume] in Blood by Automated count 1.01 10*3/uL 0-0.8 H [facility] Eosinophils [#/volume] in Blood by Automated count 0.01 10*3/uL 0-0.5 [facility] Basophils [#/volume] in Blood by Automated count 0.03 10*3/uL 0-0.2 [facility] Nucleated erythrocytes/100 leukocytes [Ratio] in Blood by Automated count 0 /100{WBCs} 0-0 [facility] ID Date Data Source [id number] 11/14/2019 04:37:17 AM EDT [facility] Name Value Range Interpretation Code Description Data Anjelica rce(s) Supporting Document(s) Bicarbonate [Moles/volume] in Serum 26 mmol/L 22-29 [facility] Chloride [Moles/volume] in Serum or Plasma 109 mmol/L 98-107 H [facility] Creatinine [Mass/volume] in Serum or Plasma 0.91 mg/dL 0.50-0.90 H [facility] Glucose [Mass/volume] in Serum or Plasma 231 mg/dL 70-140 H [facility] Potassium [Moles/volume] in Serum or Plasma 3.8 mmol/L 3.4-5.1 [facility] Sodium [Moles/volume] in Serum or Plasma 148 mmol/L 136-145 H [facility] Urea nitrogen [Mass/volume] in Serum or Plasma 40 mg/dL 6-20 H [facility] Anion gap 3 in Serum or Plasma 13 mmol/L 8-15 [facility] Osmolality of Serum or Plasma by calculation 323 mosm/kg 275-300 H [facility] Creatinine/Urea nitrogen [Mass Ratio] in Serum or Plasma 44 [facility] Calcium [Mass/volume] in Serum or Plasma 8.7 mg/dL 8.6-10.0 [facility] Glomerular filtration rate/1.73 sq M pre dicted among non-blacks [Volume Rate/Area] in Serum or Plasma by Creatinine-based formula (MDRD) 71 mL/min/1.73m2 >60 [facility] Glomerular filtration rate/1.73 sq M pre dicted among blacks [Volume Rate/Area] in Serum or Plasma by Creatinine-based formula (MDRD) 82 mL/min/1.73m2 >60 [facility] ID Date Data Source [id number] 11/14/2019 04:04:49 AM [facility] Value Range Interpretation Code Description Data Anjelica rce(s) Supporting Document(s) Glucose [Mass/volume] in Capillary blood by Glucometer 206 mg/dL 70- 140 [facility] ID Date Data Source [id number] 11/14/2019 12:26:32 AM [facility] Value Range Interpretation Code Description Data Anjelica rce(s) Supporting Document(s) Glucose [Mass/volume] in Capillary blood by Glucometer 200 mg/dL 70- 140 [facility] ID Date Data Source [id number] 11/13/2019 09:59:27 PM [facility] Value Range Interpretation Code Description Data Anjelica rce(s) Supporting Document(s) [facility] RXOCHw5aDgE[id number]Z6FvROXxPWIZOY6YzOUw jb2 [file] SRNO4gQ5b/ab1o/+h12E8NWjD/resistor coater/2rjZP+97/aRH [file] /C+Kd6JPss/boiler room helper+2tF5ubnk7gTdnRkgEPbzLua1G9H [file] Li0MGG9+41gdvrdcBL20mq3cR+He8d/kGsM/APYgzw/OQeN92tpQ+IuQD/Gregoria+7COME/fBJc8r7IlsPi nfUr+l/sh1yh+8Rs81zkJtsF5FvrEo3vy43nHv4Myrdr+hH3D+arNc/Bmi6Mt3bA/Ca7Z1aTXa5xpvdq gDq+WF2rr1nbAcAK/eFz0cw9Dwhxujqhe8VtoDG7HI LbiLY70jaDOn/wH2Okc2tc0xdlxjDa9IrMm+hfED/Qr9sEt/FsSlJY4kW1OYjT3b7F9FX5qysZ9VqlSP qx77V+hD7F+x3KS+Acvgrs1PxlR+13oI/QrzFPpVlqVevr/Id9byYa+pyyd6mcoh0Owoc9Azx74Kr8rk l031aT799Uifpow6IE0N+i71Q+jA3SrUx7DSv54wgj Yxxl1n8Lalm3NztHa8Mrwn2JoSp4P6xiawAb0V99x4hplB1jzCH7v5X/wx6C8y2vptO62L8ci+8q9539 221G+aW5Zj6p+2sn+8sy31srpogZB/bit/7MyF79ub74M1FvtzZx/KKiXaAb6rz9WI/oF97tL98vthzO RNem80rS3/XMY38U3l+Drsw1c3+VN2L/ndKm0NqPd0 8jOEPrBj/unPLpj22J+xS9SjBg1HL/lY2lB3myI6f51VQF+udol+tbuMZ+mZ5STuX6Uy1i5D8h+GfsWy oB1c47cI+7T1o223H9XJ/nLtScG2h3KBng28YGhrXh+mljo7rlrq2LVkce/0sUwQZ2on0OjxO//CdpPr dKnvUj+xoth4wx5nm+3pnWagQMC8njlv2KpunA/v43 mwO2F87Dfgc0+9vb5HG/5BjJ9Z+QQ6gGWBaR4zuh9uQT82/Jz74wNH55E//qA94/rl3De5xy+E34e/Curly L3EV9m+W96efbeB928I7hBT5z/ig4pel34xo+Z37F3aKF4R8/Inufxi+05Svxmc35W4kxJ/1AW81L4TG e1Ok8nHa2a3zCp6W/Tt7aYGvjfxDi/EPvqG/5BzC/4 Byd+e9xL1XB8/IPwM+8rTmF9K1q/EGeDd/lCN22qVB9GmpdG/n4/fvYd+pT10qf4P/nAvnvR9QMxJhvN emilie/vrvOTG/tXg+UzL3f1G/eW+btlPFO/fciTbcZ2pK0Olfwjtg2h1r20K8s19hK/Y++yjzbOX+H94vwV +uc+5S/lc29R5xLhB4soh+EQhr8ca133bn0WR1 [file] P33/+Wcf//Dq/fsPH9/9/FAWN/+RXn/4RnXjNr/r5m7 9wmVstuC/zi8+fvv/s2l3np7/88PHzTz+83ubHT//xNQI+tmq930ao/tBga01n/uvff//Dx6f//fWvH3 7xzc+/vN2zjqlAvg/ZZO/ff/n4h0+//fzx6Ve//vL0Y06ud92bz/z6z0kbgY93779/lP16zxfvo2162w 2b7+5u+/Del9YmVHrb/funP/7rv/35D7//l4//4399 /Oq77/7uF5+//2+fP//Nxw+f/u7LNx+//vSzTx//9F9m/6e//vjTHz/m346/jd44X/j8pezKh8/1nwZA REHdFzb/wx/+9t/6znm3BI2jmr9iC/eX3G1R1M/4uH7x/vsMCloVug00/njazQC99HGgj9/qNJtndXmu u4aksbWGtd5lGh/Xz5dfkWuaZ4n/+3/9/Z//YD898y erbz9//Prnn37+65aH2wz/IUSS ACOUSTIC ANALYST/+5F4D8Go6gd98BqRsxhy6aMCy0B7AQklZi7f3OuLp/v6P//FfP/78u/ /4/dvlXx/qY5JyeI/0h3//1aYFzb3/fPUEf/39x7/98T9+/+f/+bv//hcun/35ly7/gDCfB791dcjN+J f/8Xr4f/rPE236/xi541Qh9mQI3qec/vbvv/yz4K9P rwn+snX+9xQRt738soGvFbVDOl4k77DTBlaM31cem2Xwy389lC//9AsetFc21i/z+3//vgIl4oe/5Oef f/tYU7iBy+69Buj/+vM//iMYyn5y1od//8Pv/pysQj7o+Ne/+x///Lt//7ff/fE/X+Hpiu//9Kc/fHXu dHM/+kk+9S//4Z8ixB4yQa4m9yNgLh64/p//rz/+2z +/cdSTbn7IkipNxo8QXLz64//jNXz+8gvlvxsgY7LBopK/V7/6/N2NJ09MmGg/XP//r3OyHatzbIB/+n f/5+8/2sef/vXj/qZ28d34w/7j4/Nr2s/+8zzvP373pRRc3B191/nd96/Fk2mIF5Z6EO/6+PT119/95t [file] i304NZLvWYJOQqt+LwmehMIqeJniMBCBXvSdGaFOKQXZC9S= ID Date Data Source [id number] [facility]/13[facility]2019 09[facility]48:[facility] Value Range Interpretation Code Description Data Anjelica rce(s) Supporting Document(s) Troponin T.cardiac [Mass/volume] in Serum or Plasma 0.18 ng/mL <0.01 [facility] Results called to and read back by 9F LOLIS [place] DUSPER AT 2150 BY 9454 ID Date Data Source [id number] 11/13/2019 08:38:[facility] Name Value Range Interpretation Code Description Data Anjelica rce(s) Supporting Document(s) Glucose [Mass/volume] in Capillary blood by Glucometer 211 mg/dL 70- 140 [facility] ID Date Data Source [id number] 11/13/2019 06:06:01 PM [facility] XR CHEST FRONTAL ONLY [id number] RESULTI nterpreted by:Jay Reyez MDINDICATION: Worsening respiratory status.TECHNIQUE: A single frontal view of the chest was obtained.COMPARISON: Chest radiograph dated 11/13/2019 at 4:06 AM.FINDINGS: Interval removal of the endotracheal tube. Enteric tube is seen traversing below the diaphragm with the distal tip out of the hlswf-qh-iket. There is a right subclavian central venous [...] rce(s) Supporting Document(s) ID Date Data Source [id number] 11/13/2019 04:19:11 PM EDT [facility] Name Value Range Interpretation Code Description Data Anjelica rce(s) Supporting Document(s) Glucose [Mass/volume] in Capillary blood by Glucometer 171 mg/dL 70- 140 H [facility] ID Date Data Source [id number] 11/13/2019 03:32:40 PM [facility] XR CHEST FRONTAL ONLY [id number] RESULTI nterpreted by:Jay Reyez MDINDICATION: Evaluate pulmonary edema and pleural effusion.TECHNIQUE: A single frontal view of the chest was obtained.COMPARISON: Chest radiograph dated 11/12/2019.FINDINGS: The endotracheal tube terminates 2.2 cm above the kelly. Enteric tube traverses below the diaphragm with the distal tip out of the swgoz-hf-xbpk. Right subclavian central venous catheter with the [...] rce(s) Supporting Document(s) ID Date Data Source [id number] 11/13/2019 03:08:53 PM T [facility] Name Value Range Interpretation Code Description Data Anjelica rce(s) Supporting Document(s) [facility] [id number] lbm [file] o= ID Date Data Source [id number] 11/13/2019 02:36:26 PM EDT [facility] Name Value Range Interpretation Code Description Data Anjelica rce(s) Supporting Document(s) Bicarbonate [Moles/volume] in Serum 24 mmol/L 22-29 [facility] Chloride [Moles/volume] in Serum or Plasma 106 mmol/L 98-107 [facility] Creatinine [Mass/volume] in Serum or Plasma 0.76 mg/dL 0.50-0.90 [facility] Glucose [Mass/volume] in Serum or Plasma 157 mg/dL 70-140 H [facility] Potassium [Moles/volume] in Serum or Plasma 3.6 mmol/L 3.4-5.1 [facility] Sodium [Moles/volume] in Serum or Plasma 143 mmol/L 136-145 [facility] Urea nitrogen [Mass/volume] in Serum or Plasma 33 mg/dL 6-20 H [facility] Anion gap 3 in Serum or Plasma 13 mmol/L 8-15 [facility] Osmolality of Serum or Plasma by calculation 307 mosm/kg 275-300 H [facility] Creatinine/Urea nitrogen [Mass Ratio] in Serum or Plasma 43 [facility] Calcium [Mass/volume] in Serum or Plasma 8.9 mg/dL 8.6-10.0 [facility] Glomerular filtration rate/1.73 sq M pre dicted among non-blacks [Volume Rate/Area] in Serum or Plasma by Creatinine-based formula (MDRD) >6 0 [facility] Glomerular filtration rate/1.73 sq M pre dicted among blacks [Volume Rate/Area] in Serum or Plasma by Creatinine-based formula (MDRD) >60 [facility] ID Date Data Source [id number] 11/13/2019 02:36:[facility] Name Value Range Interpretation Code Description Data Anjelica rce(s) Supporting Document(s) Magnesium [Mass/volume] in Serum or Plasma 1.6 mg/dL 1.6-2.6 [facility] ID Date Data Source [id number] 11/13/2019 02:36:26 PM [facility] Value Range Interpretation Code Description Data Anjelica rce(s) Supporting Document(s) Phosphate [Mass/volume] in Serum or Plasma 4.8 mg/dL 2.5-4.5 H [facility] ID Date Data Source [id number] 11/13/2019 03:15:25 PM [facility] Value Range Interpretation Code Description Data Anjelica rce(s) Supporting Document(s) Troponin T.cardiac [Mass/volume] in Serum or Plasma 0.15 ng/mL <0.01 [facility] Results called to and read back by 9F LOLIS MAURICE AT 6374 BY 0741 ID Date Data Source [id number] 11/13/2019 11:52:37 AM [facility] Name Value Range Interpretation Code Description Data Anjelica rce(s) Supporting Document(s) Glucose [Mass/volume] in Capillary blood by Glucometer 140 mg/dL 70- 140 [facility] ID Date Data Source [id number] 11/13/2019 08:12:10 AM [facility] Name Value Range Interpretation Code Description Data Anjelica rce(s) Supporting Document(s) Glucose [Mass/volume] in Capillary blood by Glucometer 170 mg/dL 70- 140 H [facility] ID Date Data Source [id number] 11/13/2019 07:10:03 AM [facility] Name Value Range Interpretation Code Description Data Anjelica rce(s) Supporting Document(s) Bicarbonate [Moles/volume] in Serum 26 mmol/L 22-29 [facility] Chloride [Moles/volume] in Serum or Plasma 109 mmol/L 98-107 H [facility] Creatinine [Mass/volume] in Serum or Plasma 0.64 mg/dL 0.50-0.90 [facility] Glucose [Mass/volume] in Serum or Plasma 178 mg/dL 70-140 [facility] Potassium [Moles/volume] in Serum or Plasma 3.5 mmol/L 3.4-5.1 [facility] Sodium [Moles/volume] in Serum or Plasma 145 mmol/L 136-145 [facility] Urea nitrogen [Mass/volume] in Serum or Plasma 34 mg/dL 6-20 H [facility] Anion gap 3 in Serum or Plasma 10 mmol/L 8-15 [facility] Osmolality of Serum or Plasma by calculation 312 mosm/kg 275-300 H [facility] Creatinine/Urea nitrogen [Mass Ratio] in Serum or Plasma 53 [facility] Calcium [Mass/volume] in Serum or Plasma 8.5 mg/dL 8.6-10.0 L [facility] Glomerular filtration rate/1.73 sq M pre dicted among non-blacks [Volume Rate/Area] in Serum or Plasma by Creatinine-based formula (MDRD) >6 0 [facility] Glomerular filtration rate/1.73 sq M pre dicted among blacks [Volume Rate/Area] in Serum or Plasma by Creatinine-based formula (MDRD) >60 [facility] ID Date Data Source [id number] 11/13/2019 06:54:00 AM T [facility] Name Value Range Interpretation Code Description Data Anjelica rce(s) Supporting Document(s) Leukocytes [#/volume] in Blood by Automated count 10.6 10*3/uL 4-10 H [facility] Erythrocytes [#/volume] in Blood by Automated count 2.78 10*6/uL 4.1- 5.3 L [facility] Hemoglobin [Mass/volume] in Blood 7.9 g/dL 11.5-15.5 L [facility] Hematocrit [Volume Fraction] of Blood by Automated count 23.7 % 3 6-45 L [facility] Erythrocyte mean corpuscular volume [Entitic volume] by Auto mated count 85.1 fL 80-96 [facility] Erythrocyte mean corpuscular hemoglobin [Entitic mass] by Automated count 28.6 pg 27-33 [facility] Erythrocyte mean corpuscular hemoglobin concentration [Mass/volume] by Automated count 33.5 g/dL 32.0-36.0 [facility] Eryth[facility] distribution width [Ratio] by Automated count 15.5 % 11.5-14.5 H [facility] Platelets [#/volume] in Blood by Automated count 262 10*3/uL 150-400 [facility] Differential cell count method - Blood [facility] Neutrophils/100 leukocytes in Blood by Automated count 72 % [facility] Lymphocytes/100 leukocytes in Blood by Automated count 17 % [facility] Monocytes/100 leukocytes in Blood by Automated count 8 % [facility] Eosinophils/100 leukocytes in Blood by Automated count 2 % [facility] Basophils/100 leukocytes in Blood by Automated count 1 % [facility] Neutrophils [#/volume] in Blood by Automated count 7.81 10*3/uL 1.8-7 .0 H [facility] Lymphocytes [#/volume] in Blood by Automated count 1.79 10*3/uL 1.2-4 .0 [facility] Monocytes [#/volume] in Blood by Automated count 0.81 10*3/uL 0-0.8 H [facility] Eosinophils [#/volume] in Blood by Automated count 0.16 10*3/uL 0-0.5 [facility] Basophils [#/volume] in Blood by Automated count 0.05 10*3/uL 0-0.2 [facility] Nucleated erythrocytes/100 leukocytes [Ratio] in Blood by Automated count 0 /100{WBCs} 0-0 [facility] ID Date Data Source [id number] 11/13/2019 05:22:04 AM [facility] Value Range Interpretation Code Description Data Anjelica rce(s) Supporting Document(s) pH of Arterial blood 7.42 7.38-7.44 [facility] Carbon dioxide [Partial pressure] in Arterial blood 40 mm[Hg] 35-40 [facility] Oxygen [Partial pressure] in Arterial blood 101 mmHg 95-100 H [facility] Oxygen saturation in Arterial blood 98 % 94-100 [facility] Base excess in Arterial blood by calculation 2 [facility] Carbon dioxide, total [Moles/volume] in Arterial blood 27 mmol/L [facility] Oxygen/Inspired gas setting [Volume Fraction] Ventilator 0.30 [facility] ID Date Data Source [id number] 11/13/2019 04:00:10 AM [facility] Value Range Interpretation Code Description Data Anjelica rce(s) Supporting Document(s) Glucose [Mass/volume] in Capillary blood by Glucometer 194 mg/dL 70- 140 [facility] ID Date Data Source [id number] 11/13/2019 12:44:41 AM [facility] Value Range Interpretation Code Description Data Anjelica rce(s) Supporting Document(s) Glucose [Mass/volume] in Capillary blood by Glucometer 178 mg/dL 70- 140 [facility] ID Date Data Source [id number] 11/12/2019 08:24:26 PM [facility] Value Range Interpretation Code Description Data Anjelica rce(s) Supporting Document(s) Glucose [Mass/volume] in Capillary blood by Glucometer 195 mg/dL 70- 140 [facility] ID Date Data Source [id number] 11/12/2019 07:14:50 PM [facility] Value Range Interpretation Code Description Data Anjelica rce(s) Supporting Document(s) Leukocytes [#/volume] in Blood by Automated count 11.1 10*3/uL 4-10 H [facility] Erythrocytes [#/volume] in Blood by Automated count 2.92 10*6/uL 4.1- 5.3 L [facility] Hemoglobin [Mass/volume] in Blood 8.2 g/dL 11.5-15.5 L [facility] Hematocrit [Volume Fraction] of Blood by Automated count 24.7 % 3 6-45 L [facility] Erythrocyte mean corpuscular volume [Entitic volume] by Auto mated count 84.5 fL 80-96 [facility] Erythrocyte mean corpuscular hemoglobin [Entitic mass] by Automated count 28.2 pg 27-33 [facility] Erythrocyte mean corpuscular hemoglobin concentration [Mass/volume] by Automated count 33.3 g/dL 32.0-36.0 [facility] Erythrocyte distribution width [Ratio] by Automated count 15.4 % 11.5-14.5 H [facility] Platelets [#/volume] in Blood by Automated count 295 10*3/uL 150-400 [facility] Differential cell count method - Blood [facility] Neutrophils/100 leukocytes in Blood by Automated count 72 % [facility] Lymphocytes/100 leukocytes in Blood by Automated count 17 % [facility] Monocytes/100 leukocytes in Blood by Automated count 8 % [facility] Eosinophils/100 leukocytes in Blood by Automated count 2 % [facility] Basophils/100 leukocytes in Blood by Automated count 1 % [facility] Neutrophils [#/volume] in Blood by Automated count 8.15 10*3/uL 1.8-7 .0 [facility] Lymphocytes [#/volume] in Blood by Automated count 1.84 10*3/uL 1.2-4 .0 [facility] Monocytes [#/volume] in Blood by Automated count 0.85 10*3/uL 0-0.8 H [facility] Eosinophils [#/volume] in Blood by Automated count 0.19 10*3/uL 0-0.5 [facility] Basophils [#/volume] in Blood by Automated count 0.06 10*3/uL 0-0.2 [facility] Nucleated erythrocytes/100 leukocytes [Ratio] in Blood by Automated count 0 /100{WBCs} 0-0 [facility] ID Date Data Source [id number] 11/12/2019 03:40:12 PM EDT [facility] Name Value Range Interpretation Code Description Data Anjelica rce(s) Supporting Document(s) Glucose [Mass/volume] in Capillary blood by Glucometer 207 mg/dL 70- 140 H [facility] ID Date Data Source [id number] 11/12/2019 12:33:40 PM EDT [facility] Name Value Range Interpretation Code Description Data Anjelica rce(s) Supporting Document(s) Glucose [Mass/volume] in Capillary blood by Glucometer 262 mg/dL 70- 140 H [facility] ID Date Data Source [id number] 11/12/2019 08:19:14 AM [facility] XR CHEST FRONTAL ONLY [id number] RESULTI nterpreted by:Gabe Escobar [facility].FINDINGS: A single 30 degree [...] rce(s) Supporting Document(s) ID Date Data Source [id number] 11/12/2019 08:06:37 AM [facility] Value Range Interpretation Code Description Data Anjelica rce(s) Supporting Document(s) Glucose [Mass/volume] in Capillary blood by Glucometer 230 mg/dL 70- 140 H [facility] ID Date Data Source [id number] 11/12/2019 09:59:08 AM [facility] Value Range Interpretation Code Description Data Anjelica rce(s) Supporting Document(s) Levetiracetam [Mass/volume] in Serum or Plasma 40 ug/mL 12-46 [facility] ID Date Data Source [id number] 11/12/2019 08:17:20 AM [facility] Value Range Interpretation Code Description Data Anjelica rce(s) Supporting Document(s) pH of Arterial blood 7.35 7.38-7.44 L [facility] Carbon dioxide [Partial pressure] in Arterial blood 42 mm[Hg] 35-40 H [facility] Oxygen [Partial pressure] in Arterial blood 155 mmHg 95-100 H [facility] Oxygen saturation in Arterial blood 99 % 94-100 [facility] Base excess in Arterial blood by calculation [facility] Carbon dioxide, total [Moles/volume] in Arterial blood 24 mmol/L [facility] Oxygen/Inspired gas setting [Volume Fraction] Ventilator 0.40 [facility] ID Date Data Source [id number] 11/12/2019 04:06:06 AM [facility] Name Value Range Interpretation Code Description Data Anjelica rce(s) Supporting Document(s) Glucose [Mass/volume] in Capillary blood by Glucometer 170 mg/dL 70- 140 H [facility] ID Date Data Source [id number] 11/12/2019 04:22:57 AM [facility] Name Value Range Interpretation Code Description Data Anjelica rce(s) Supporting Document(s) Leukocytes [#/volume] in Blood by Automated count 9.5 10*3/uL 4-10 [facility] Erythrocytes [#/volume] in Blood by Automated count 2.69 10*6/uL 4.1- 5.3 L [facility] Hemoglobin [Mass/volume] in Blood 7.8 g/dL 11.5-15.5 [facility] Hematocrit [Volume Fraction] of Blood by Automated count 22.7 % 3 6-45 L [facility] Erythrocyte mean corpuscular volume [Entitic volume] by Auto mated count 84.5 fL 80-96 [facility] Erythrocyte mean corpuscular hemoglobin [Entitic mass] by Automated count 28.9 pg 27-33 [facility] Erythrocyte mean corpuscular hemoglobin concentration [Mass/volume] by Automated count 34.1 g/dL 32.0-36.0 [facility] width [Ratio] by Automated count 15.2 % 11.5-14.5 H [facility] Platelets [#/volume] in Blood by Automated count 236 10*3/uL 150-400 [facility] Differential cell count method - Blood [facility] Neutrophils/100 leukocytes in Blood by Automated count 73 % [facility] Lymphocytes/100 leukocytes in Blood by Automated count 16 % [facility] Monocytes/100 leukocytes in Blood by Automated count 8 % [facility] Eosinophils/100 leukocytes in Blood by Automated count 2 % [facility] Basophils/100 leukocytes in Blood by Automated count 1 % [facility] Neutrophils [#/volume] in Blood by Automated count 6.94 10*3/uL 1.8-7 .0 [facility] Lymphocytes [#/volume] in Blood by Automated count 1.57 10*3/uL 1.2-4 .0 [facility] Monocytes [#/volume] in Blood by Automated count 0.80 10*3/uL 0-0.8 [facility] Eosinophils [#/volume] in Blood by Automated count 0.19 10*3/uL 0-0.5 [facility] Basophils [#/volume] in Blood by Automated count 0.05 10*3/uL 0-0.2 [facility] Nucleated erythrocytes/100 leukocytes [Ratio] in Blood by Automated count 0 /100{WBCs} 0-0 [facility] ID Date Data Source [id number] 11/12/2019 04:54:26 AM EDT [facility] Name Value Range Interpretation Code Description Data Anjelica rce(s) Supporting Document(s) Bicarbonate [Moles/volume] in Serum 23 mmol/L 22-29 [facility] Chloride [Moles/volume] in Serum or Plasma 111 mmol/L 98-107 H [facility] Creatinine [Mass/volume] in Serum or Plasma 0.71 mg/dL 0.50-0.90 [facility] Glucose [Mass/volume] in Serum or Plasma 207 mg/dL 70-140 H [facility] Potassium [Moles/volume] in Serum or Plasma 4.0 mmol/L 3.4-5.1 [facility] Sodium [Moles/volume] in Serum or Plasma 146 mmol/L 136-145 H [facility] Urea nitrogen [Mass/volume] in Serum or Plasma 39 mg/dL 6-20 H [facility] Anion gap 3 in Serum or Plasma 12 mmol/L 8-15 [facility] Osmolality of Serum or Plasma by calculation 317 mosm/kg 275-300 H [facility] Creatinine/Urea nitrogen [Mass Ratio] in Serum or Plasma 55 [facility] Calcium [Mass/volume] in Serum or Plasma 8.7 mg/dL 8.6-10.0 [facility] Glomerular filtration rate/1.73 sq M pre dicted among non-blacks [Volume Rate/Area] in Serum or Plasma by Creatinine-based formula (MDRD) >6 0 [facility] Glomerular filtration rate/1.73 sq M pre dicted among blacks [Volume Rate/Area] in Serum or Plasma by Creatinine-based formula (MDRD) >60 [facility] ID Date Data Source [id number] 11/11/2019 11:56:29 PM [facility] Name Value Range Interpretation Code Description Data Anjelica rce(s) Supporting Document(s) Glucose [Mass/volume] in Capillary blood by Glucometer 185 mg/dL 70- 140 H [facility] ID Date Data Source [id number] 11/11/2019 08:29:46 PM [facility] Value Range Interpretation Code Description Data Anjelica rce(s) Supporting Document(s) Glucose [Mass/volume] in Capillary blood by Glucometer 236 mg/dL 70- 140 H [facility] ID Date Data Source [id number] 11/11/2019 07:07:44 PM [facility] Value Range Interpretation Code Description Data Anjelica rce(s) Supporting Document(s) Leukocytes [#/volume] in Blood by Automated count 9.2 10*3/uL 4-10 [facility] Erythrocytes [#/volume] in Blood by Automated count 2.68 10*6/uL 4.1- 5.3 [facility] Hemoglobin [Mass/volume] in Blood 7.7 g/dL 11.5-15.5 [facility] Hematocrit [Volume Fraction] of Blood by Automated count 22.7 % 3 6-45 L [facility] Erythrocyte mean corpuscular volume [Entitic volume] by Auto mated count 84.9 fL 80-96 [facility] Erythrocyte mean corpuscular hemoglobin [Entitic mass] by Automated count 28.8 pg 27-33 [facility] Erythrocyte mean corpuscular hemoglobin concentration [Mass/volume] by Automated count 33.9 g/dL 32.0-36.0 [facility] E[facility]th[facility] distribution width [Ratio] by Automated count 15.1 % 11.5-14.5 H [facility] Platelets [#/volume] in Blood by Automated count 225 10*3/uL 150-400 [facility] Differential cell count method - Blood [facility] Neutrophils/100 leukocytes in Blood by Automated count 72 % [facility] Lymphocytes/100 leukocytes in Blood by Automated count 19 % [facility] Monocytes/100 leukocytes in Blood by Automated count 7 % [facility] Eosinophils/100 leukocytes in Blood by Automated count 2 % [facility] Basophils/100 leukocytes in Blood by Automated count 0 % [facility] Neutrophils [#/volume] in Blood by Automated count 6.57 10*3/uL 1.8-7 .0 [facility] Lymphocytes [#/volume] in Blood by Automated count 1.71 10*3/uL 1.2-4 .0 [facility] Monocytes [#/volume] in Blood by Automated count 0.68 10*3/uL 0-0.8 [facility] Eosinophils [#/volume] in Blood by Automated count 0.19 10*3/uL 0-0.5 [facility] Basophils [#/volume] in Blood by Automated count 0.04 10*3/uL 0-0.2 [facility] Nucleated erythrocytes/100 leukocytes [Ratio] in Blood by Automated count 0 /100{WBCs} 0-0 [facility] ID Date Data Source [id number] 11/11/2019 05:04:21 PM [facility] Name Value Range Interpretation Code Description Data Anjelica rce(s) Supporting Document(s) Glucose [Mass/volume] in Capillary blood by Glucometer 228 mg/dL 70- 140 H [facility] ID Date Data Source [id number] 11/11/2019 12:38:03 PM [facility] Name Value Range Interpretation Code Description Data Anjelica rce(s) Supporting Document(s) Glucose [Mass/volume] in Capillary blood by Glucometer 224 mg/dL 70- 140 [facility] ID Date Data Source [id number] 11/13/2019 10:38:44 AM [facility] Service Cmnt XXX-Imp : NoneGram Stn XXX : 2+WBC'S Seen.1+FloraMicroorganism XXX Cult : Indigenous microorganisms. Name Value Range Interpretation Code Description Data Anjelica rce(s) Supporting Document(s) ID Date Data Source [id number] 11/11/2019 08:22:27 AM [facility] Name Value Range Interpretation Code Description Data Anjelica rce(s) Supporting Document(s) Glucose [Mass/volume] in Capillary blood by Glucometer 159 mg/dL 70- 140 H [facility] ID Date Data Source [id number] 11/11/2019 04:57:07 AM [facility] Name Value Range Interpretation Code Description Data Anjelica rce(s) Supporting Document(s) Bicarbonate [Moles/volume] in Serum 20 mmol/L 22-29 L [facility] Chloride [Moles/volume] in Serum or Plasma 112 mmol/L 98-107 H [facility] Creatinine [Mass/volume] in Serum or Plasma 0.71 mg/dL 0.50-0.90 [facility] Glucose [Mass/volume] in Serum or Plasma 202 mg/dL 70-140 H [facility] Potassium [Moles/volume] in Serum or Plasma 4.2 mmol/L 3.4-5.1 [facility] Sodium [Moles/volume] in Serum or Plasma 141 mmol/L 136-145 [facility] Urea nitrogen [Mass/volume] in Serum or Plasma 39 mg/dL 6-20 H [facility] Anion gap 3 in Serum or Plasma 9 mmol/L 8-15 [facility] Osmolality of Serum or Plasma by calculation 307 mosm/kg 275-300 H [facility] Creatinine/Urea nitrogen [Mass Ratio] in Serum or Plasma 55 [facility] Calcium [Mass/volume] in Serum or Plasma 8.3 mg/dL 8.6-10.0 [facility] Glomerular filtration rate/1.73 sq M pre dicted among non-blacks [Volume Rate/Area] in Serum or Plasma by Creatinine-based formula (MDRD) >6 0 [facility] Glomerular filtration rate/1.73 sq M pre dicted among blacks [Volume Rate/Area] in Serum or Plasma by Creatinine-based formula (MDRD) >60 [facility] ID Date Data Source [id number] 11/11/2019 05:01:51 AM [facility] Name Value Range Interpretation Code Description Data Anjelica rce(s) Supporting Document(s) Leukocytes [#/volume] in Blood by Automated count 10.4 10*3/uL 4-10 H [facility] Erythrocytes [#/volume] in Blood by Automated count 2.64 10*6/uL 4.1- 5.3 [facility] Hemoglobin [Mass/volume] in Blood 7.7 g/dL 11.5-15.5 [facility] Hematocrit [Volume Fraction] of Blood by Automated count 22.3 % 3 6-45 L [facility] Erythrocyte mean corpuscular volume [Entitic volume] by Auto mated count 84.2 fL 80-96 [facility] Erythrocyte mean corpuscular hemoglobin [Entitic mass] by Automated count 29.3 pg 27-33 [facility] Erythrocyte mean corpuscular hemoglobin concentration [Mass/volume] by Automated count 34.8 g/dL 32.0-36.0 [facility] al Erythrocyte distribution width [Ratio] by Automated count 14.9 % 11.5-14.5 H [facility] Platelets [#/volume] in Blood by Automated count 212 10*3/uL 150-400 [facility] Differential cell count method - Blood [facility] Neutrophils/100 leukocytes in Blood by Automated count 75 % [facility] Lymphocytes/100 leukocytes in Blood by Automated count 15 % [facility] Monocytes/100 leukocytes in Blood by Automated count 8 % [facility] Eosinophils/100 leukocytes in Blood by Automated count 2 % [facility] Basophils/100 leukocytes in Blood by Automated count 0 % [facility] Neutrophils [#/volume] in Blood by Automated count 7.79 10*3/uL 1.8-7 .0 H [facility] Lymphocytes [#/volume] in Blood by Automated count 1.51 10*3/uL 1.2-4 .0 [facility] Monocytes [#/volume] in Blood by Automated count 0.86 10*3/uL 0-0.8 H [facility] Eosinophils [#/volume] in Blood by Automated count 0.23 10*3/uL 0-0.5 [facility] Basophils [#/volume] in Blood by Automated count 0.04 10*3/uL 0-0.2 [facility] Nucleated erythrocytes/100 leukocytes [Ratio] in Blood by Automated count 0 /100{WBCs} 0-0 [facility] ID Date Data Source [id number] 11/11/2019 04:09:21 AM [facility] Value Range Interpretation Code Description Data Anjelica rce(s) Supporting Document(s) Glucose [Mass/volume] in Capillary blood by Glucometer 183 mg/dL 70- 140 H [facility] ID Date Data Source [id number] 11/11/2019 12:33:56 AM [facility] Value Range Interpretation Code Description Data Anjelica rce(s) Supporting Document(s) Glucose [Mass/volume] in Capillary blood by Glucometer 171 mg/dL 70- 140 H [facility] ID Date Data Source [id number] 11/10/2019 08:11:48 PM [facility] Value Range Interpretation Code Description Data Anjelica rce(s) Supporting Document(s) Glucose [Mass/volume] in Capillary blood by Glucometer 226 mg/dL 70- 140 H [facility] ID Date Data Source [id number] 11/10/2019 05:02:16 PM [facility] Value Range Interpretation Code Description Data Anjelica rce(s) Supporting Document(s) Glucose [Mass/volume] in Capillary blood by Glucometer 255 mg/dL 70- 140 [facility] ID Date Data Source [id number] 11/10/2019 01:06:52 PM [facility] Value Range Interpretation Code Description Data Anjelica rce(s) Supporting Document(s) Glucose [Mass/volume] in Capillary blood by Glucometer 246 mg/dL 70- 140 [facility] ID Date Data Source [id number] 11/10/2019 01:06:52 PM [facility] Value Range Interpretation Code Description Data Anjelica rce(s) Supporting Document(s) Glucose [Mass/volume] in Capillary blood by Glucometer 78 mg/dL 70- 140 [facility] ID Date Data Source [id number] 11/10/2019 01:10:48 PM [facility] Value Range Interpretation Code Description Data Anjelica rce(s) Supporting Document(s) pH of Arterial blood 7.37 7.38-7.44 L [facility] Carbon dioxide [Partial pressure] in Arterial blood 34 mm[Hg] 35-40 L [facility] Oxygen [Partial pressure] in Arterial blood 168 mmHg 95-100 H [facility] Oxygen saturation in Arterial blood 99 % 94-100 [facility] Base excess in Arterial blood by calculation [facility] Carbon dioxide, total [Moles/volume] in Arterial blood 20 mmol/L [facility] Oxygen/Inspired gas setting [Volume Fraction] Ventilator 0.50 [facility] ID Date Data Source [id number] 11/10/2019 12:59:49 PM [facility] Service Cmnt XXX-Imp : NoneOB Pnl Stl [...] rce(s) Supporting Document(s) ID Date Data Source [id number] 11/10/2019 11:23:57 AM EDT [facility] XR CHEST FRONTAL ONLY [id number] RESULTI nterpreted by:Isrrael Castellano, Jay Sheikh MDINDICATION: Follow-up bilateral lung opacities.TECHNIQUE: 260 degrees frontal views of the chest were obtained.COMPARISON: Chest radiograph dated 11/09/2019.FINDINGS: The endotracheal tube terminates approximately 1.7 cm above the kelly. There is an enteric tube traversing below the diaphragm with the distal tip out of the [id number]. Right subclavian central venous catheter is again [...] rce(s) Supporting Document(s) ID Date Data Source [id number] 11/10/2019 09:08:52 AM EDT [facility] Name Value Range Interpretation Code Description Data Anjelica rce(s) Supporting Document(s) Glucose [Mass/volume] in Capillary blood by Glucometer 212 mg/dL 70- 140 H [facility] ID Date Data Source [id number] 11/10/2019 04:27:16 AM EDT [facility] Name Value Range Interpretation Code Description Data Anjelica rce(s) Supporting Document(s) Leukocytes [#/volume] in Blood by Automated count 9.2 10*3/uL 4-10 [facility] Erythrocytes [#/volume] in Blood by Automated count 2.90 10*6/uL 4.1- 5.3 L [facility] Hemoglobin [Mass/volume] in Blood 8.4 g/dL 11.5-15.5 L [facility] Hematocrit [Volume Fraction] of Blood by Automated count 24.1 % 3 6-45 L [facility] Erythrocyte mean corpuscular volume [Entitic volume] by Auto mated count 82.9 fL 80-96 [facility] Erythrocyte mean corpuscular hemoglobin [Entitic mass] by Automated count 28.9 pg 27-33 [facility] Erythrocyte mean corpuscular hemoglobin concentration [Mass/volume] by Automated count 34.8 g/dL 32.0-36.0 [facility] width [Ratio] by Automated count 15.0 % 11.5-14.5 H [facility] Platelets [#/volume] in Blood by Automated count 223 10*3/uL 150-400 [facility] Differential cell count method - Blood [facility] Neutrophils/100 leukocytes in Blood by Automated count 70 % [facility] Lymphocytes/100 leukocytes in Blood by Automated count 17 % [facility] Monocytes/100 leukocytes in Blood by Automated count 10 % [facility] Eosinophils/100 leukocytes in Blood by Automated count 2 % [facility] Basophils/100 leukocytes in Blood by Automated count 1 % [facility] Neutrophils [#/volume] in Blood by Automated count 6.49 10*3/uL 1.8-7 .0 [facility] Lymphocytes [#/volume] in Blood by Automated count 1.54 10*3/uL 1.2-4 .0 [facility] Monocytes [#/volume] in Blood by Automated count 0.87 10*3/uL 0-0.8 H [facility] Eosinophils [#/volume] in Blood by Automated count 0.21 10*3/uL 0-0.5 [facility] Basophils [#/volume] in Blood by Automated count 0.05 10*3/uL 0-0.2 [facility] Nucleated erythrocytes/100 leukocytes [Ratio] in Blood by Automated count 0 /100{WBCs} 0-0 [facility] ID Date Data Source [id number] [facility]/10[facility]2019 [facility]50:[facility] Value Range Interpretation Code Description Data Anjelica rce(s) Supporting Document(s) Bicarbonate [Moles/volume] in Serum 19 mmol/L 22-29 L [facility] Chloride [Moles/volume] in Serum or Plasma 112 mmol/L 98-107 H [facility] Creatinine [Mass/volume] in Serum or Plasma 0.85 mg/dL 0.50-0.90 [facility] Glucose [Mass/volume] in Serum or Plasma 217 mg/dL 70-140 H [facility] Potassium [Moles/volume] in Serum or Plasma 4.4 mmol/L 3.4-5.1 [facility] Sodium [Moles/volume] in Serum or Plasma 141 mmol/L 136-145 [facility] Urea nitrogen [Mass/volume] in Serum or Plasma 41 mg/dL 6-20 H [facility] Anion gap 3 in Serum or Plasma 10 mmol/L 8-15 [facility] Osmolality of Serum or Plasma by calculation 308 mosm/kg 275-300 H [facility] Creatinine/Urea nitrogen [Mass Ratio] in Serum or Plasma 48 [facility] Calcium [Mass/volume] in Serum or Plasma 8.5 mg/dL 8.6-10.0 L [facility] Glomerular filtration rate/1.73 sq M pre dicted among non-blacks [Volume Rate/Area] in Serum or Plasma by Creatinine-based formula (MDRD) 77 mL/min/1.73m2 >60 [facility] Glomerular filtration rate/1.73 sq M pre dicted among blacks [Volume Rate/Area] in Serum or Plasma by Creatinine-based formula (MDRD) 89 mL/min/1.73m2 >60 [facility] ID Date Data Source [id number] [facility]/10[facility]2019 [facility] Code Description Data Anjelica rce(s) Supporting Document(s) Glucose [Mass/volume] in Capillary blood by Glucometer 163 mg/dL 70- 140 H [facility] ID Date Data Source [id number] 11/10/2019 12:30:27 AM EDT [facility] Value Range Interpretation Code Description Data Anjelica rce(s) Supporting Document(s) Glucose [Mass/volume] in Capillary blood by Glucometer 252 mg/dL 70- 140 H [facility] ID Date Data Source [id number] 11/09/2019 08:31:32 PM [facility] Name Value Range Interpretation Code Description Data Anjelica rce(s) Supporting Document(s) Glucose [Mass/volume] in Capillary blood by Glucometer 232 mg/dL 70- 140 H [facility] ID Date Data Source [id number] 11/09/2019 04:40:[facility] FRONTAL ONLY [id number] RESULTI nterpreted by:Bjorn Fine, [facility] INFORMATION: Exam: XR Chest, 1 View Exam [...] view. COMPARISON: DX XR CHEST FRONTAL ONLY 00001 PORTABLE 11/08/2019 6:34 AM FINDINGS: Tubes, catheters [...] rce(s) Supporting Document(s) ID Date Data Source [id number] 11/09/2019 04:48:05 PM [facility] Name Value Range Interpretation Code Description Data Anjelica rce(s) Supporting Document(s) Glucose [Mass/volume] in Capillary blood by Glucometer 225 mg/dL 70- 140 H [facility] ID Date Data Source [id number] 11/09/2019 12:22:57 PM [facility] Name Value Range Interpretation Code Description Data Anjelica rce(s) Supporting Document(s) Glucose [Mass/volume] in Capillary blood by Glucometer 196 mg/dL 70- 140 H [facility] ID Date Data Source [id number] 11/09/2019 07:38:42 AM [facility] Value Range Interpretation Code Description Data Anjelica rce(s) Supporting Document(s) Glucose [Mass/volume] in Capillary blood by Glucometer 188 mg/dL 70- 140 H [facility] ID Date Data Source [id number] 11/09/2019 03:38:05 AM [facility] Value Range Interpretation Code Description Data Anjelica rce(s) Supporting Document(s) Glucose [Mass/volume] in Capillary blood by Glucometer 182 mg/dL 70- 140 [facility] ID Date Data Source [id number] 11/09/2019 03:59:28 AM [facility] Value Range Interpretation Code Description Data Anjelica rce(s) Supporting Document(s) Leukocytes [#/volume] in Blood by Automated count 11.2 10*3/uL 4-10 H [facility] Erythrocytes [#/volume] in Blood by Automated count 2.98 10*6/uL 4.1- 5.3 L [facility] Hemoglobin [Mass/volume] in Blood 8.4 g/dL 11.5-15.5 [facility] Hematocrit [Volume Fraction] of Blood by Automated count 24.5 % 3 6-45 L [facility] Erythrocyte mean corpuscular volume [Entitic volume] by Auto mated count 82.2 fL 80-96 [facility] Erythrocyte mean corpuscular hemoglobin [Entitic mass] by Automated count 28.1 pg 27-33 [facility] Erythrocyte mean corpuscular hemoglobin concentration [Mass/volume] by Automated count 34.2 g/dL 32.0-36.0 [facility] E[facility] width [Ratio] by Automated count 14.8 % 11.5-14.5 H [facility] Platelets [#/volume] in Blood by Automated count 198 10*3/uL 150-400 [facility] Differential cell count method - Blood [facility] Neutrophils/100 leukocytes in Blood by Automated count 71 % [facility] Lymphocytes/100 leukocytes in Blood by Automated count 17 % [facility] Monocytes/100 leukocytes in Blood by Automated count 10 % [facility] Eosinophils/100 leukocytes in Blood by Automated count 1 % [facility] Basophils/100 leukocytes in Blood by Automated count 1 % [facility] Neutrophils [#/volume] in Blood by Automated count 7.98 10*3/uL 1.8-7 .0 H [facility] Lymphocytes [#/volume] in Blood by Automated count 1.90 10*3/uL 1.2-4 .0 [facility] Monocytes [#/volume] in Blood by Automated count 1.09 10*3/uL 0-0.8 H [facility] Eosinophils [#/volume] in Blood by Automated count 0.15 10*3/uL 0-0.5 [facility] Basophils [#/volume] in Blood by Automated count 0.07 10*3/uL 0-0.2 [facility] Nucleated erythrocytes/100 leukocytes [Ratio] in Blood by Automated count 0 /100{WBCs} 0-0 [facility] ID Date Data Source [id number] 11/09/2019 04:15:59 AM T [facility] Name Value Range Interpretation Code Description Data Anjelica rce(s) Supporting Document(s) Bicarbonate [Moles/volume] in Serum 18 mmol/L 22-29 L [facility] Chloride [Moles/volume] in Serum or Plasma 112 mmol/L 98-107 H [facility] Creatinine [Mass/volume] in Serum or Plasma 0.89 mg/dL 0.50-0.90 [facility] Glucose [Mass/volume] in Serum or Plasma 185 mg/dL 70-140 H [facility] Potassium [Moles/volume] in Serum or Plasma 4.4 mmol/L 3.4-5.1 [facility] Sodium [Moles/volume] in Serum or Plasma 140 mmol/L 136-145 [facility] Urea nitrogen [Mass/volume] in Serum or Plasma 35 mg/dL 6-20 H [facility] Anion gap 3 in Serum or Plasma 11 mmol/L 8-15 [facility] Osmolality of Serum or Plasma by calculation 304 mosm/kg 275-300 H [facility] Creatinine/Urea nitrogen [Mass Ratio] in Serum or Plasma 39 [facility] Calcium [Mass/volume] in Serum or Plasma 8.5 mg/dL 8.6-10.0 L [facility] Glomerular filtration rate/1.73 sq M pre dicted among non-blacks [Volume Rate/Area] in Serum or Plasma by Creatinine-based formula (MDRD) 73 mL/min/1.73m2 >60 [facility] Glomerular filtration rate/1.73 sq M pre dicted among blacks [Volume Rate/Area] in Serum or Plasma by Creatinine-based formula (MDRD) 85 mL/min/1.73m2 >60 [facility] ID Date Data Source [id number] 11/09/2019 04:15:59 AM [facility] Value Range Interpretation Code Description Data Anjelica rce(s) Supporting Document(s) Magnesium [Mass/volume] in Serum or Plasma 1.9 mg/dL 1.6-2.6 [facility] ID Date Data Source [id number] 11/09/2019 04:15:59 AM [facility] Value Range Interpretation Code Description Data Anjelica rce(s) Supporting Document(s) Phosphate [Mass/volume] in Serum or Plasma 3.2 mg/dL 2.5-4.5 [facility] ID Date Data Source [id number] 11/09/2019 12:01:49 AM [facility] Value Range Interpretation Code Description Data Anjelica rce(s) Supporting Document(s) Glucose [Mass/volume] in Capillary blood by Glucometer 178 mg/dL 70- 140 H [facility] ID Date Data Source [id number] 11/08/2019 08:33:26 PM [facility] Value Range Interpretation Code Description Data Anjelica rce(s) Supporting Document(s) pH of Arterial blood 7.35 7.38-7.44 L [facility] Carbon dioxide [Partial pressure] in Arterial blood 33 mm[Hg] 35-40 L [facility] Oxygen [Partial pressure] in Arterial blood 110 mmHg 95-100 H [facility] Oxygen saturation in Arterial blood 98 % 94-100 [facility] Base excess in Arterial blood by calculation [facility] Carbon dioxide, total [Moles/volume] in Arterial blood 19 mmol/L [facility] Oxygen/Inspired gas setting [Volume Fraction] Ventilator 0.50 [facility] ID Date Data Source [id number] 11/08/2019 08:16:56 PM [facility] Value Range Interpretation Code Description Data Anjelica rce(s) Supporting Document(s) Glucose [Mass/volume] in Capillary blood by Glucometer 254 mg/dL 70- 140 H [facility] ID Date Data Source [id number] 11/08/2019 07:08:23 PM [facility] Value Range Interpretation Code Description Data Anjelica rce(s) Supporting Document(s) Glucose [Mass/volume] in Capillary blood by Glucometer 242 mg/dL 70- 140 H [facility] ID Date Data Source [id number] 11/08/2019 12:44:45 PM [facility] Value Range Interpretation Code Description Data Anjelica rce(s) Supporting Document(s) Glucose [Mass/volume] in Capillary blood by Glucometer 289 mg/dL 70- 140 H [facility] ID Date Data Source [id number] 11/08/2019 12:02:33 PM [facility] Value Range Interpretation Code Description Data Anjelica rce(s) Supporting Document(s) Cobalamin (Vitamin B12) [Mass/volume] in Serum or Plasma 395 pg/ml 2 11-946 [facility] ID Date Data Source [id number] 11/08/2019 12:02:33 PM [facility] Value Range Interpretation Code Description Data Anjelica rce(s) Supporting Document(s) Thyrotropin [Units/volume] in Serum or Plasma 1.950 u[IU]/mL 0.270-4. 200 [facility] ID Date Data Source [id number] 11/08/2019 11:48:13 AM [facility] Value Range Interpretation Code Description Data Anjelica rce(s) Supporting Document(s) Ammonia [Moles/volume] in Plasma 52 umol/L 11-51 H [facility] ID Date Data Source [id number] 11/10/2019 01:25:42 AM [facility] Value Range Interpretation Code Description Data Anjelica rce(s) Supporting Document(s) ABO and Rh group [Type] in Blood [facility] Blood group antibody screen [Presence] in Serum or Plasma [facility] 11/11/2019,0000[facility] [place] [place] ID Date Data Source [id number] 11/08/2019 06:12:[address] [facility] : NoneMicroorganism XXX Cult : 2019 nCoV Real-Time RT-PCR: NOT DETECTEDThis test method was designed to detect the causative agent of COVID-19. The Dept. of Pathology [facility] has Emergency Use Authorization (EUA) from the FDA to peform this test to allow for rapid response during a declared public health emergency.Initial validation was performed by the Centers for Disease Control and Prevention (CDC) and additionally validated by the Dept. of Pathology [facility]. Negative results do not preclude SARS-CoV-2 infection and should not be used as the sole basis for patient management decisions.Additional information is available on the following FDA websites for health care providers and patients. https://www.fda.gov/media/084362/download, ht tps://www.Cuil.gov/media/481117/download. Name Value Range Interpretation Code Description Data Anjelica rce(s) Supporting Document(s) ID Date Data Source [id number] [facility]/2019 10:56[facility] None[facility] XXX Cult : 2019 nCoV Real-Time RT-PCR: NOT DETECTEDThis test method was designed to detect the causative agent of COVID-19. The Dept. of Pathology [facility] has Emergency Use Authorization (EUA) from the FDA to peform this test to allow for rapid response during a declared public health emergency.Initial validation was performed by the Centers for Disease Control and Prevention (CDC) and additionally validated by the Dept. of Pathology [facility]. Negative results do not preclude SARS-CoV-2 infection and should not be used as the sole basis for patient management decisions.Additional information is available on the following FDA websites for health care providers and patients. https://www.fda.gov/media/211654/download, ht tps://www.Cuil.gov/media/275829/download. Name Value Range Interpretation Code Description Data Anjelica rce(s) Supporting Document(s) Microorganism identified in Unspecified specimen by [facility] This lab was ordered by [facility] and reported by [facility]. 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 [file] 6jbZTtCRldES1BLLO+Sherry+Tj4LQTYrGYMqDPBaChCeFSCIFsHdZ2AyB2YNn7NzU0FoSM36xPvdcyOnQG mpCL2JUX4eBQMuICVUSV7DwIOxwM5zmjT1CBFyPIST NtKjU87efEKrUSCbANM5BAWtDy8HOUAqH6IlqrZfrAkivqZnGRNeCLNSCN6APPxxyzAtrPPxoIcyIZ29 bYjlCM6QVl7KViAbNS8qee7AoHLzIt2XQVD6RO0OQVAiBLRmNDNgZCW2QQUfEmMwMXniLEGhIVVnIPT6 WYNtUOIpWM8LUiTyJMBgAEexYRbhAMViWPVxum0DND NqHQE5YKj4BODhHMUsFWDeHUqhILIfNAStULS3QJFiIPCnPX1VErApZJOuTYZ3LjBjDYQyVYRdvw8JVU QrXZClKhSgLKToZEJlUXOnVTnkFRWiKYX6OkZvRTKcDFMxXM9VIuEjJVPzDUU7ZoBePRUiQOTpcu1HCZ VhULIaYVe6NUBzDKUgGZLnXZsiJYWjUBX9GAA7FSEp PYXsEO0OZvYvRSJtGZMpMoNsTUZtZHUtnu7WTWIrCYVzVjR7LWUnIMVrPLHjTGbtLXYsKQW7WSQmQFAs HAEyZJ3EEhViHFOyWVXsPgiiOUDkYXTpyw3VEQOsFHNrUyB5EaMhSJIdZBYpOVfqIOJoDFJ5GAUyERAk WEZkMG6YMtGpGTLnTcM5KKffGBJoLKGupn4WRKCkGR LyPLQ1YXOqBVRlFNJpVBnvGFSlJKVuCjZ1UNNkRMKtPQ6XWuZpTEEfDhQ6RlUwMCArYUTjnc5BSSMtSC ZqPmgrDjHeOPYpFDEaYJrqHLBcKPU4EAPdERKfVCWlVT1KYeScMAVaRnR0PjmnOXSlSOEpnr5LFESyKG TgUQwbOzDvBTYvLHMcBKeeLMQtQHM4IRKqCEQhYUHh YX6AJrHiACTeNnXjCawdAESbCIFssv7QZZJiPPIdLATgPXLtZRPgVZKkMCimCQSzCII0GzJePDFbSXTl HI0OUbMeOBXdMNHqFPDxZXEhYSDhpu5QFMNsWHG7OKG8ZTYoFPPnOUHcUDjiCBLoTVZmEGSoHVTpQIBp CF0FEfPqNHXsQTB9XYbkYWSmBQMnrj5BWYTaBFN4Dh wqUZXtBJUuRNMbHCtzUWDpRUBcKqj9HIGzFRCaLR8FPiUqJGFvQWU7MVTgCCYgIGCcws5LGKPlPOH3IX T9HNMoXFNvMEUjRXkdQQXrDWJ6RKU9YNQkIZVbSM3GCrOzWMYfWUUqTkDgEWBbYFZobs6XXPNeZVF3NZ GaODLlAYOvUQQqHLrhETTnHBG3EPS5LHWdKZKkSK6O YqZmUYPsGCusAhOeFNVmGKJxej6QFZEiHPS6PjLlJAPdRMPeNBIvKEvpNDMoBZD8PwcqIIIuGOJuOV6W SqXlUEKlONb6JGKeUJAwSENkbj6HMBMjOQL5IRz7XINkFYPlUMCxCOnuSNKfVXP3IEO2RZTmIDBzHW4W BhXzAJOjQDczNlXsNIAzKSVmst5EWDHnVOI2TPT3OR XsYKUrBOYgKFhyGOQbDTZqNBgkIUUcLRJzES8RNpBtDPHeYjWkQVDvKSKoHVUyyp5XXZThMNF0GETgKx FcQPUpRKYqUTquRIOaXSPkDIH4KEOdARMqGT6HMaOsWPGsBeS3IFNkCXYfEQDpkg7ARXTuLPK5QPi0Gu TvTJEuRNMwMYtnWGYoPAGaWBW4WTSnCQOqSR6XXnCi BYYnAbFsVmYbOYZcXXKlqp6ZHCLvEAJ4QqA8UcQkFXWxZLZbYXjtKWDzRUPxJSV6FMRqLVHhRD4BEbBy FFjzKAOUBfm5SLcjM8i1RCQ4VA8MS4Glq2VgBGpbIKIGJVfzTC1zxkSdLMDtYy7OM5zSMzy4SIH5LIQb XQYgRLJyQNIkQxI6Q5R7NNNhTtZkL1LbOZ0cZQyoNB ulInLgBSH5ZfE0QXMmKmC9MMocCtU4PBCmUwZwWsAnJO8KNs3WLeY6LWI8tDWwOi5SMxQ3HXvRMpLySN 9GDQo= ID Date Data Source [id number] 11/08/2019 08:48:44 AM EDT [facility] XR CHEST FRONTAL ONLY [id number] RESULTI nterpreted by:Keily Correa, MDPROCEDURE INFORMATION: Exam: [...] view. COMPARISON: DX XR CHEST FRONTAL ONLY [id number] PORTABLE 11/07/2019 3:23 PM FINDINGS: Tubes, catheters and devices: The tip of an endotracheal tube is approximately 1.6 cm above the kelly. There is an OG/NG tube which passes down the esophagus and terminates below the diaphragm. The tip of the tube is not included in the wtihb-lr-ekzy. Lungs: Mid inspiratory effort with resultant low [...] rce(s) Supporting Document(s) ID Date Data Source [id number] 11/08/2019 08:17:28 AM [facility] Value Range Interpretation Code Description Data Anjelica rce(s) Supporting Document(s) Glucose [Mass/volume] in Capillary blood by Glucometer 236 mg/dL 70- 140 H [facility] ID Date Data Source [id number] 11/08/2019 04:11:11 AM [facility] Value Range Interpretation Code Description Data Anjelica rce(s) Supporting Document(s) Glucose [Mass/volume] in Capillary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 JgnZZUvppLfQtd+ItYqoHsqkJo4XgkeJ9Z5r755TJ8UgoGarG61mE3Pcjd6BL9PzmIk2RBq5i0n0A5t3 BtakiiaoLndGMdIPkJ5bBTGBABtTl1VZ2c99XvsY1V klnV5rfj3rQcb0gF8MFQRwbIZcz39XyD9jSY5Rqn3P1ReyJI0MvoWyw3+6XXIdxilVTkDeKXlu74uzwh PiG682iLRDh/BDV1hD53+M8f5KdN85ajcOulyCTbZ0uH85fpRbaBbQx40Q6gTsHoh9UDqeYr2GdLp+5N 4xuD2ENJpTfAgUMjmuHCA4W1sc2nJsCaD1fJS8ut1M d/Dr8E26rXDhGnrOkJ3ffJBBDFqvOby4DrMaqVwoAqZWBM/u4pJPw6vg4l2ZZ6Vi420za8sA5kdXOVwm iyyuAZvtRzWdptvzsBNFOSpe+Vqpua4/GFvQHFPceT0uh6d1nWcBhXcUE/uFKyjHplUstakRKMzKWMfb 3/hhPgQWNE471mzwjabGl+iGvvKKBQum2vfSJJlrsS +5MYUZmmLfbu5dvlnllsrAARXo7SuluK3YNQG4AdJypXmANzj8hg13hNI5/mLmYd1MJmyQvr6c0OnwFg 7GC6BitRaMIWkYQdqCjUMw/WIRPGmtOeMerzJ48N4/DBumlkg4twQKjc2UHb1eembiXCPT8C2p/5wF6J RXJ79bEbAlTL10gg68uyZimrvJFFsgtiAbavhmvosm [file] first//z/e [file] ADd2p0bbps2kB/JYI0mfWl4CGTUI91slVG/F0kNz0IHwi7u+platform loader/vcxHAmcrWKGrlGGrnoGVRPqzyqn2 lvuF50Ysl5A5jmIVciq3GYCi9CP+Rk3bphJtooR83G0GSE3TireknQv5C0Sbbi2Bdq/aoK552IluZcMs 6MV+YGq/qw4D4oPnq38zXvjV5OO44mE2+8cQTcSnil HKf+Y6DL20ZCzakRZanCgDLRYmrfPZ467boHBvZiaBHpGj22illYs0ovCR/Mj4op/Cv3Ndy22W/HHUWt tjFT3LxTY5SBGxggrzKJCgFUk26+sOU42Dbxvcu+HAlgV1KQMUNsegp3+rz6tnC0QuAVQ/EVjdd7PyTw pyxzGAi+ASnlXuYsQH4gYlYr8K7XCAXrhxsrfKPmYg XHeeLxjtZpGivdvCu3EnDEiVo6rdzN9pssw+fYSCIIvRFIn2PPX5V91+TYUSGnuLc71NHMswabddDkWC XmKViyPf5BtqMgQdt8h0E/r/JXrVmg2N3jFjuqJtcNb9TJM7wOkYlgEait3Fe6jagsR20dwYaL1BL2xD eVJjfC1NORCCE8rONUB5YCmCDbTK1WStQZ+B8SjeYC JUTo1cYJTEqeCtTQQCBvAK8vYwrC5NWcmkQbJ9tsvgI264fwTqLGWUxzHQqjz3p+YxWToWTyrVBshP4D QvhTvnsGNhnzfszWbBLknex2QzUml21zJexd5gI+b5Wst1PX/FIGIJ3rvFo0JEC7qbKqn9uxmDzUyd/H +wp62LWKzg8s0E58cCfC4a5jRqxgRf/PYa+RuX2bNh v68dkyXYZbO1eaBD7l1CiIm/vY7Z9wPSTMu0CFgGGr4ZFZHUTJUTltU2wnvGAaFA2tP8TmhlGDGDe9U8 xics+ZQECnt1ftFPumSB4Kegm4DDgSOjcsVpn5GlhclEuU+ApAv3Mr43nMgmg2ARAdL6j5SE6MwL9qw+ Ap3Ak1GG5ishzxaLWmmYprwmqFuJl+Tco6VW89yG9M Vj6Ol/0eqvnFPZ70vmpmpqrUlEPvEhluU/RPtUS3N80KNdz0o0SlOi/trimming machine operator/2amhtyFnpOjkNytAoGki1 [file] pharmaceutical worker/xg59iJnJ4DaGUICAw33nW92f39cZC0TLibWnBeR [file] +2vdZEcI4B4twjD/Telecommunications Line Installer+WuLR8BbbKNLea/yysdKryz9/YWAUsPF3p65heEw1aaYU6DkpQ23bcUbCthexU [file] qJaPV0eTBBSpe0KBOJXzYJTuo4ofVgFt+BLOWER AND COMPRESSOR ASSEMBLER/J1Yp6f u2kciyeZOnDFWQemw0e9pJsx0RE4qF5LqMDrHVLONgD0K5dOR1jhbyljb7l9V3AmKCBAmfcuKQF6Ipct 9/6l7RzswYV5Cf2EDqGmWoypPt22qQXoHkklfmv8azbz4+4gLm1NJ2mE+mSjuHUcaUym30++BhMMNHQ4 mMzq1vjcxVRmC2+EYp8zNnmvmA2/Yj+pQi4MjQcxlP HJgWQHJkEj0zBPJIq6qspE4kaKppze006rgpBXPcu3GbUZrS//hC8dck2VVsmftnip9Ln9S06e8G+tk0 C+kBN54dCHeQGH3xzonsvaAtdY5qltVqSB28jFr8v3dro5sRZDGwxW4IDr/DquViOgKckS/ghMU+hPQz kJO/4Vr/v28T2brXA+7wSzQ9gk/7g9SMm2C6Xd71b1 AkpDZYZsv1b2MFMQEdD+CBpVHCqvcB25byk/xQytcjUV9wx1woIHN29zLwh611btz3qzStijLytLAaB7 4XAlH+tF2QDaYCeHvbPFobwgxvva7g0ien3y/9JqmUWUPA53Aeg9XVO9+D3KXZi7MBxH9kWyWOt8TDU7 vgnzygyFXWTZC3+cqSKYLg7wpgiJxHvsgnBlPlhsrg [file] dp9Ugq5XfdzDdn4TxCm/ASXG6SWTJJCPsaDuaJQiWcdE/electric range servicer/v8SyRZEbwznJY/5elFep+jL6xgJ3cG6 [file] global marketing coordinator+HWsyUrO4UMdHbretMhfu0o4RUKmABYYRsjmQYt [file] mtiW3C6eYGB8UxVzGA/Telecommunications Line Installer+gh8LPCpfnCp9B5bOOu+CMpxYR6dGPGvVujJK5PdVC+LQ7kEt30qZVujs0Q [file] +zY0ZHxybd9U+BLOWER AND COMPRESSOR ASSEMBLER+KVmq/XqXHhBcrzwQzwfwYfs5xv21tFNfEJdbg3arq8ThEPutu3Xk6PoEYwxbL7dK [file] 4kYCyQ2xyWO15FP2nSWFfsHaRX2aXEgC7QhdGA0lPHEEo6YBbWlSVB/77YqXzCsrWZbulkGDyyxc+Pellet Preparation Operator [file] 1+//miFq+W5AjpcscJ4uhge6c3UyymLylReZ3l2y1eFswFCUzAfZuKA+hhl+b9ipRVFt4/YzMtcz+production control specialist [file] wwXfX0BXnM7Ka8I9Sk07Ectj3IdxvXAZOQmlEUFbrr4L7OrhyI3pFqo5LLrUXHBlykc9vt+4T57h+FIOR Ao+CEd8I0UvEoT7ZxiEhdIMUPbCqZpBQFCljCDNr60SKDIVukpZ6Kgu8dzC8UOc+j5+NSbz0s7TYx0rO 45qELWewHD7Rlc9OrHY5c4XaLAbWs4ssfO8L88MDCr Fl6ekIxQEzGJp9qvU9ypKm8WxWP+WFquA5cZBDoKggFZinQso91SUTbWLUXLqvbhRt+jZIPHKx0JZCFZ vQPeEtbYY+mdhGj4utQaNWEmoZzEv/2VeKWuaNnYJWotLwGsPGEVS+ECwQbwPEGipdzZ4zbOF5kTMUs7 33eBjlgcnKRQ2bbKY2kr8LzFPJ125/SVFjVqNBn+sampler first [file] vp emerging media/v/ykzM3l6z8vRNbq7sVmsjn5onKPVmkRFOoQJIU/P9tylGxrgiPIbjlImZWK38RCk17kOMwxI9baG [file] 9hVK/nf+KCJT8aO48rUQ0dovMMB0XckJbgTWnqeEO5NcWK5nMV3X/3AusavV8cxWMJDQlr7RwmCE+Jean-Paul [file] 1Jo7ONr0Wqq+k6Dl3/SI88dTHx6jH8fGmgShmaGs1X7AeCx0IWe8cqb/poquSGj1Iv3sa9GVBHWn+CARLOS ENRIQUE [file] manager environmental health and safety/n/1PcJHKpvaZFbLOkd2mCLPokWOMhWUQr+k6+4nwwvktcHzAdieQpX3PjxQAWMUpdUIE6iPnmOpp [file] kkKOjJWULgTKhIglzq+ETlcJV/Q4lwlK0fELaZsXKfnglgr93/5/38/nz8oZ158xDJO6vP7lVmPyhqje iSrJ65LaiKjvTd2Oq8lLsQAsJ0dDgMhaiZB46jDyw7Y4a7pp4DoVKkuWzdCOm88Ox+i4NGT4AvgVfqpY +WHH5iRWJCPsh/z6ERU1vR0miki27jd9RR/36+v/vp emerging media [file] ea+Pellet Preparation Operator+Paj4lRaxm7DR3FQ/0iknHk2NM+ZFWOwM61IBGputbceSVQccRoC2nBqNrgn8bwSoCbylZhdxg [file] hNiaY5bYZjEQuyeGO+MsS6/teacher kindergarten/gHBxcc58Qn4mylIttxIC4+srK1eoBhVILDK5XSgaLJ3hhxsl5Ck+2 LQPzxF0LBB7c421cBfosctvcQ1uo3VLLg46ZJUHtbDrmgVX8mjQ+wH/FA++g6d8FmklgjbKobBGep2Gc OQFXYPaPkRzV8puax+fYu9HuN4J2z4bUK2qzc3lXO4 G7k8oP+H/SB02N81KSsTGfn1B4F7rG2i6u6W2dV7x5LD3i6iBDoRjIR+iz3ykwPfcQ41F5KuOe+SkpZG ebMK0FzCYjp0/ild+AEuRQEcRE38Q2+NK2/QJT6fFp7Mt+vLf8wzFZJgi7vhWVVpM56QDBFoUDUYxsbB /mlV+mgUFv7OTkF+rIxv197DZ1Ay4DZKtYx10fat+V n+buTCgcGvwY1JSL3+Gyf7tUpiErDixwKAFV0lA73Sqk7FIKKHkGVy/Gd0SvC5KZwi+0Xla/4G6AUBQa ypf7PpqJwGA86hA39e02r7jAGcDurpaSTd5KkLjKaGZxsR35L/XK+v6qBWFLukaqk74EIxm6P6hZStxM ONJ4nhDHC9LMzj9O3kO9bEMTlqpENytv9iTRjFhDSH uV604VNJQ8ZkvqkDoDJNg2gAq+3WzBvk8E0517Pu4ZWrMOAQedCBlW0cKy7GTopMv63jxI95nz20MSF0 UkidwL9OhZOikfs1PtYOjOvmIKGPg7kfBkd65ywm90df6dza6Zz4tSI8Q2DqIQ5ewzcyxNKsf95AibB6 jNIimJuQy+JK+Tiffany/EeunVXAuKtzeEqKdBzLt27hPl [file] nfqy3Oz6C4xIIuK7m49BAGehXNXe7Tigr7uhKfB/zJoKoW27lM//sampler first//nnn/+lfOWy/iQ5PSdOn39qeO [file] 7CyhC3/NqqKjegrely3Kszhq7+2IQsD/Xz3/LK/IbnWclLLvEKFTprnlJ9o6bUipm1hXTRbcG2LJ/Arnoldo +WTv3j5Nak4axD7oQZANeQ7/h/AxAyv58zfvJenYDL eIrIENV6W6iyV/GUW6TtR0x7X1xirFP2J/NMRZmB7LM/76KgwkrCftyHQ3G6vuqm/GJJ/KMSuF64xBdt 1OnSEmA1SALhw2FyUqUnQ0OgajrF9fdgc+YJE7M15ZOYXUaGvaI96LGcSO8EAuMj5+i/5MfpPxjQzjDW /chseYwo1f+s1UjOQMWTQecZ5G0LGodvd9oxBuRr0a AaYfLBX2eMBiFGWy6SUhQO+BD4rBYqjpzukQ39XW6xAvuJf2aOlVeZRdFTd6qiB+oMdOXfFVbrvjJ8Zm f7i0AEesuKSknbfKGYp2AzIGmuZkOT+loXOEtgnWt54+ogv46cKkhB1mpY1K7n2VgIhMFuoWf9dM8nFY nLx6hjZEjDWs6Kvf6x4ofuwX56bWi3qRkcEgDG6Kl9 KXmFv3GFtvqK/G2y+MiN47f6siLBHjuEUzXNYIHct2aUFehYYJTmp+xrkcTlOPRD3/OYG5ZBf4j+GVly qnNh5lCDlRYQWy0OGcj23Jrn5K2TGwUSA5anvYsfRg78mINcQmt0tTqGP95W59E/olcCXPJAyaPPD3+v PbIUsEnSDtYsWuCGr1Cxn4zu+VVCH0t4WCXmbmFVNx rc0Ffkfh3jlcmSFmwbX3wBrVHxnPKjrx9jvHbEoSG6+HD4vup0D92tSuqHBhfzBLyljSNnhvSb1qTU+s vp emerging media/SaEE54rCrlc5sxHhvzjv6fUoAvXL5WQl6DZTDS12T8fMjgN8ezmPHyy9Zn4lxRQQ+BtdpifWI+wNE [file] Et0G1veWgXO/hRbMarLtio1mCwM+certified registered locksmith+qVNMtSvNIu [file] FX6A/dz+8/f/1PyPyvIXiX9MPQS+djdOFkkCPwAz/XFz6+RBGgEfd04XBWp325W4zXK+s+[place]/CzLoZy [file] senior care+v3r+m4hidkJrlJr/8Sqx941yQx5Zk5nFg+iV5Q+iBlnCxsiUqVe6/zyd3KtrztIGwI+5dsL8ib9k [file] XX9I9ecSn1pEw9+technical manager/gVrPkTSsFszxNax/FsGWf7+dns+2SFlZ31Hi+8/14QtKioA6gJDLZbc+4iz9s [file] TbwyETTNY/Darío/37pUFBMHbQcaVfqEGqgxX0yy97xQBrxVPSk1OqIzSSxKjyZ8e0NusjXM9yvIiZxKMk [file] lR43eSHC07pv/bfslfmKT+PFlyp1jxrIBDy7LHcHa+ZNDQ91S4/GWj8cxj867AWK/lWCsrfcO+H78+sampler first [file] head irrigator++8RkofFS5TvR9RrLpNdu5aKEC/EY8hiwp0k+ft3+tmAxhII19E9p9nMocavmOaF3DNcdC5F0yDUP7 [file] emerging media [file] customer strategy manager/smEByQtugl8pwkXC08+1x9fSy/IrU8oI9fIcQv [file] 0sCeZDXvnd3Ip+IUSS ACOUSTIC ANALYST/5vruwj7sezNsf+cPiNTFdFoDVHk0mi7n0g3hoEdJ5nbzy6f++pSfx5dj1KHhPwM [file] vp emerging media+9CkrpTlST6pwqgIxJtyUxsYkcArGbtdbXiFEASJGwcjeS6R2aYq3sWFT0fQgLOGjETde2P+qMGZkS IpZdjFiGkOPqctpc+625080F74493Y7JoXfA626uta Cx/Wkzjl00x1GkKGhpXVfCmaDMAX4lg0UZPEGjQbvJ2Uykfsf6sgTWcZDmI0ST+MjAc1jp1xmS9qUeKH G0RBuMNBtwLcacpgins0V82TZpIlx7agMJdyVSuRlOg1ttu0yQJnctlJyNCOUngb+67PC4Si+byFTCwn QnRGjQFUoikktAVJ4p2i54ZnDVMgmTl/fD4eHmiHUk 0GZPok7k001gA1PN3oMCP4G++xvJhpiLfp/r4cf+ppOPOvyIXsk+xa+AF22nHo8VLl8lfhOiOTbi3dKU bJ3MaByasStabLoZaypkw4LXL/kX7poFopqzjo4eW7o0vmoPOE/WA60JBfdKhlwrn8Isjc6av/6V6JVw SBnGJSze9OCCHfkbvvrr+DHFIU+AlVkSHStsemXneq VbD/aovDJ+eBwXRMqHlaSmTObhf1By0W66bIuPPfKNHh0Ok/SYGq9VHgnJiSEl0MYDWW1stJlmCdDO2j G2S/xeCriHUrtvW2jPnbfkNmcBfpHQeZTNgQKI/GnnVjolIh39gynyYR/uHyNSBy1Ph9XbEYr2BaBXfp 31C9cz0GKYl5Di2FyCXtnmyidTJFi6g99BTjW2Uksh cDxDvIC85wt5Hl+avilez+Y5U3rdXqjokAk4m70GUXFSPTflvZX/sihnDB3+1r0sf//Imq7f/D/eAGpQWZO7 [file] [id number]rMPciCrip2QxyfaAbYmVjHVkg+xGaz7tqNmS0AB0I51i6C0E+government relations manager [file] oIuhpmj11uzMGi8h1+Ladder Operator+/reeLGgfer5VXzR14f/mtj14OtFD/MMaipyoxTEVdXZSzrm3mXHTv5z+rG6 [file] sampler first/1IuvaaHUWhFdSOj/W1iwb+4fdXGhI+fqO5bvmwhflX2eAc1RdX2U+xIeaYIqh6lBal0ssR4iun/L7 [file] [facility]/m88+YJG25+YDplxJRMTngPO1KJA+GVVBt2 mdnr3JLKHW3rUNJj7wpnw8mqaTtu8CrHKZwDoDs7QwEhpN0FzKg7WEpi2VBrCi42Vwwddolo+XtGyX+R KX/toHRvjqcl2g6UZpb+01I4zn51t87MnisIQpwFixnNKPXCctelaPhBOWlaUoekJu9fwV28ciq0WJCA utCo1Rhp30z7zgVXrcUash6PP1b/mDGjogq01yMXOf mUUhZ3RYLZiIKzlhPfh8X1zjzfQd8hTIG+HnriznhRjo3TgxTNPlHnA/i9O6qgKjjHU8tGt7YPlYPvT8 qa26YMcHD3Qow1aIboZCsMLrZwUdLQV/peuaI/et8X1EKHi5daEsCRFVtBJZq4X6xwQe3xA+6FUke1vk eKBsNfAhvy5Sn22H4mmg9FV2d7ygjMM8BdxfPe/Aq9 x57mj0Jk7FKmzEZzZaxPC/FJoOpoNrlVWUbJIOu4vBNscivMm6DlAbUZBkawH33/9YGIdvlPUfNTiX8F DoafG0Jd+82z6k41NeJgLV5WG+VJ9E3VJ/sDEM7daHM6bYGVgmwx1393vzyLqI0ws8lw2iHpnY7ILPp1 /LHxHADntmegxu2rmiuqSREoJBT1EWG51W77TwEbZe 774LeXNa6TJZa92/2bDOYjDydmV5WxZ/L2XgMQaYetmNR20+mcAx+mPDYUaU/nuw90g4d4g14p6wj/ST wYtMUATNnFQj3upg0XVDJQwmkJvo3/17mynMz/xHwGzvTGd03EiwPciDA6hHpLYBwx+QOP8tAXB9gk0+ UsHptH12FvH/R2upuLfy/aButx/xLkLI94hPGedw8h wpBkmiI67sz1veVsa56hZfOIhUDgXf3vN+u9qfH1TOrmPWHDCh0735zbzxprfBwwIxn7s5F2vUdpsU0q o/lLbiu3KAifxVoc8XnYl7YwCDAvzaZEUS0xhvovC3Q0x/UTfdBPOm9DhRn5o7rB+Teodora/2xlMkizxLVO [file] MANAGER PERFORMANCE IMPROVEMENT+GBaJGMCwYnCMeLgoUyyzyYrnq+IqmL9IdfofBG [file] dumper operator [file] [employer]+/CNh3YRWOSJNkPRInRDdtnLbhdQXBzawjJ7FhW [file] /MBIBKQmXiQtnKIncrhDazsQroTo8RJBL7OA/EkztO2jkLmE+QJkDAmlla7vnyYQ/LIU7zJWsY2k/Maria Esther [file] G6sePrWnsr/7f/55/ydz7z//TGMqV4umbrZgLy7OB7sh+zU4vE8w+Uf3NaY+pharmaceutical worker+Myjb7UGrkHlFfbtqh nVob2zB1gseW0dberGjul40seRUzsol8g0Ter6ufTSsvV79+WoP8b3xd3AvLNIupTUcfMtHnypNsAl0B uJZ1WogQ/bphLXGR6hJVwc2eeh8Ca4o9OQKsIKA6Nj 4P2kqDbVrDlhdBYWtOaOfWl36GgeP8eW1qveAjoprkftdYCuS71YYIdAqvwLeR8ZOWBL5YneAIdD5Qcu 5dM8SZ8+LwEfVhjYcg/Io/k9RqgFi9hheYtyi0EvaZ6HfrfyRAv37Yfk1lbYlIzFMj2bCh3KYDqoodDH hJGPd+wmrlVQzdDRfJsgyk55hmX7BV0v7/J2T93z/v NUL2yyH+I+gTHh7P+3+Qh+8doXcgyPPwLW+1zRzmAaKdif9Nmivql/mMwNQ6QfyoMm9LQlEc9K55Gzw5 yaMb/qY/5cDgO/8m/PrbGY18O6uMgmvJEZCH+mRbtVJ385ikqrMwZ/R9I6MMeDFpCNZls33RBa9703dw fKiseUTjPFlPETFrIBjtW27LecTu40Nqe7RrUdXbHd UTjIq6vFh63rpSFY8Y3pqB9H1S+MOtm5u5Vxqi3nwe7ffYpyOytrgxJf3SgfwatfJFkbT3tpuQKesOak TnHdcJ70Nc0TR/RrdVzDvHieGqpPcnlD6eA8mRN5Sqa8v8yR53aXtcXGuLRf/rsEYLriNCYGUQ4Oc0JY wrABlk7wFo7po/VIa4+1oe4LUF44m6xcYXbRU1y9ri 969Kg38+Xq2xOjsb1/2ROQc4qoJY36uZVs+u60P3/IlqGIg0K0iYPutGOJJbqHQl0nwYhdrPk+RHmH7v aaGY3HgRfOah5xi0tQ+WyxriPmLgc9UW1hXTqiFhvABjyvqxjLwRqmqyI/8VFRGPogkNd+bzPS49AhIY deuNVFNW1vmKbJ61oRfP05o/n18gyKJbyb0A2Ywvkr ZYxgFkL3vwO4Y7oK8Y33fXruN8/DXStfpDVoaYihHt14tAp4tYFW7jWpQiqPjoeacTiJ3RMczTQosGRJ mYNRz3zWIsE/ts8aE9tQj9VmxNMeEQ2tOKRXCmCUS9NNNhOd11M2/mQMLxw38WpPKvd6AOcyEXZOqRxo UXlfbchmzuOA6dBO5/tXT5ErYkhB4s60Yd1IR7//sampler first [file] JF+rejq0UgY7AkA9wh4ZxuxNk7weQvcmMF61jt5+imxceVv+sampler first/fKWCQuhTWiw4yCyJCggPBExRtM9QF [file] ICAgICAgICAgICAgICAgICAgICAgICAgICAgICAgICAgICAgICAgICAgICAgICAgICAgICAgICAgICAg ICAgICAgICAgICAgICAgICAgICAgICANCiAgICAgIC AgICAgICAgICAgICAgICAgICAgICAgICAgICAgICAgICAgICAgICAgICAgICAgICAgICAgICAgICAgIC AgICAgICAgICAgICAgICAgICAgICAgICAgICAgICAgICANCiAgICAgICAgICAgICAgICAgICAgICAgIC AgICAgICAgICAgICAgICAgICAgICAgICAgICAgICAg ICAgICAgICAgICAgICAgICAgICAgICAgICAgICAgICAgICAgICAgICAgICANCiAgICAgICAgICAgICAg ICAgICAgICAgICAgICAgICAgICAgICAgICAgICAgICAgICAgICAgICAgICAgICAgICAgICAgICAgICAg ICAgICAgICAgICAgICAgICAgICAgICAgICANCiAgIC AgICAgICAgICAgICAgICAgICAgICAgICAgICAgICAgICAgICAgICAgICAgICAgICAgICAgICAgICAgIC AgICAgICAgICAgICAgICAgICAgICAgICAgICAgICAgICAgICANCiAgICAgICAgICAgICAgICAgICAgIC AgICAgICAgICAgICAgICAgICAgICAgICAgICAgICAg ICAgICAgICAgICAgICAgICAgICAgICAgICAgICAgICAgICAgICAgICAgICAgICANCiAgICAgICAgICAg ICAgICAgICAgICAgICAgICAgICAgICAgICAgICAgICAgICAgICAgICAgICAgICAgICAgICAgICAgICAg ICAgICAgICAgICAgICAgICAgICAgICAgICAgICANCi AgICAgICAgICAgICAgICAgICAgICAgICAgICAgICAgICAgICAgICAgICAgICAgICAgICAgICAgICAgIC AgICAgICAgICAgICAgICAgICAgICAgICAgICAgICAgICAgICAgICANCiAgICAgICAgICAgICAgICAgIC AgICAgICAgICAgICAgICAgICAgICAgICAgICAgICAg ICAgICAgICAgICAgICAgICAgICAgICAgICAgICAgICAgICAgICAgICAgICAgICAgICANCiAgICAgICAg ICAgICAgICAgICAgICAgICAgICAgICAgICAgICAgICAgICAgICAgICAgICAgICAgICAgICAgICAgICAg ICAgICAgICAgICAgICAgICAgICAgICAgICAgICAgIC ANCjw/bKInV6cqiSBjrnI9I3lfZt8VNi4PHM7hf9ZzEZWdYVknxqSpDywONsNdFHRrJlpAJov2EMptLT 7CcMGzH7IjJ7TtELpmLF0ZBUUtPLTgnUToLJQnNUXjNoP1MMUrWSamUP0LbZNdXIemJUIqKRVpMfGmDW IgOSAwIFIgMTEgMCBSIDEzIDAgUiAxNSAwIFIgMTcg HXKRER2ZTwXmB1KxuT01QJzBKq8+KTtmuiCaXkqKQzV7PWNpq7DeCAx4SW3GAWIvNqlwi0PoNvbxYRDZ PMkdPX7IKLF3TZX7VMBuHu4OGNChL669mtSrLB7WPl1FNiAxDM1gxp0PPbqpZGRmLzaVKir4HWjtRQ2Q aEMvGSmEu60sqOp4igPluIFHTBWjmLCvidFSRHLyKm YrxVPqAG9PANW9LFYzPnrhFvGaNLFqIYyvHQGUCGsZHaThB6Ohg8XeHkN3HINoBaHdIZfaBALyCgJ4QW 08dRtbOB7JYKAxLLMoVG26YUS6INAyDe5RZj7HKpWqTV6iwa5UScrjZYSmCwxGFev5XMjdBY4BhZTmB7 RfvRXho2yMBoNlM1THKBQ1ESSnHa5ILVSeDqHzEXYf WBxnVN1iGZHqBDLXuDndvhQ8SW6RJW9bewRkPE4EYfRwIo3hMf4TYkQoQ6EhY9JvTNSdZYSAAQxeLZ2D LMpdOG2gWZ9Oy6TCbDKitY9lbc9LIQBeWYCoZhpbti9XLfabQ9Z6jRdbURMsJqpxOKFHYSnpYJ8DAISb SRR9FUHkRmQpQYQVEtLeR22bXQ2NX1Zhk33nCoK2BX XrJiJqZRpnSI37lMlhktVtdLMasElkII1EOw0+DQplbmRvYmoNCnhyZWYNCjAgNDANCjAwMDAwMDAwMD QiWwY8MyEcVo6KXOPvRGFxAECgPvAqEAKmAVIxYGdwBCE6ART2DPOcTIZlWQQeSB0CIpUmDTQvNOG5CH UcKMHqFMVubp8PGVJwUCJhVTM5TrGzLVWvQLNiGKpn LHLqTKRuAlN3QYGwMTQfUP1UFoQzGRLzSOS7OyCoRGCuZGZvfb2ZOWJrYSGyOIW1RYVdVSJgROYfTIbi JRVvSNH7CYr9JUImZHZvNW2AEoBbSRTxIVR8LcwbRILaJYWvfn1UUYVdBTBnWgL8QkLsKYQuXVVvPGqy KGDxRLW5ZBk0OFFbDXXfJQ1QOtQbFMLqGSm5DFEgAX UnIYIxmh2UUBAnUDYxWUZ1MDIwIPCyTLIkJRwuFDKuBUZ4FoevBEXjYIGmMD3WKsBaYUShFVJ1JLmyNT JdRNCxbq0KOXHyGUUoLWwvSVGbEOInSWDwUDujZEDrFSNoNZN2EXCdDEHkQW2SMbKrHGTeTTL4PbBxCQ UgTQKofy4QXKGgTIEpNhZ8LzDjSXZsDQPzEPwlIDIa IBSeZJu4GBXsRBBaTN1EAkRqAUDoKIZsQhAoWGTnGBCmbz5LCOByRZKhBVVlRVQmXBTyXAUhTQrmBFEz YUI9AlVlWXGdWKTeTP2UUyLfHQDwMYK0JrMfZHTsDROmtm1JEMRiOALyUxxuZhGwRYKdIBVlBFdkHRMk IWN1BWY1OGHoXRFkWG4SSrZqRCEoIwxiGyAsDEKbOO Vtwg4JIZKoSNJaUxX4HcFqUQHfNLJcTSjxKNGhBWA4HdQ4GMCxCWHhBD1KFiMuZAAmEhY5NKVwMKSoPQ Tjkv9TKLElIaH7JaR9ORCwITXoGQMiFBcpOVOtRJn6ASN8VPPeNCZzGV3INiOkBPS2VrF9KHylNMBaNO Vbqn5JIOQyRdo8VDGbWCElDWWeXKNrRZdiNKD9RML3 CWG5IMMmCBQtDU5ATkUaOGKkMXF2BFAiLGWxRYOtxr0DAVVhWAY8TWw7QZYnYBFaMLGbBMnqLLH1EJW9 GNNvVZLqQHXoXE0UUdVuQXAfVEYpIHdqKZWbUPDcio1TwBDtaNpsqf0UJTsLQl0DzTvrBGQqIPdmXk0d rUViMINvKERNLk7YeoTcGXIdQMOSRBizWKStESu6BD XzVbR0EtAkQWRtGzT0OQXdIrUkJZU5MUfvGuJ1DbJ1HBFrFmYpFwUbYbAtJnQ0AVV1NuB3MyUsKSGkSW ZjNTk+XO9hGLn+Pw7Mx1CsrxH5yxPdEEf6DBS6XJNwOXqfNPRMDn2D ID Date Data Source [id number] 11/06/2019 04:13:31 PM EDT [facility] Name Value Range Interpretation Code Description Data Anjelica rce(s) Supporting Document(s) [facility] VKWKSp9zWbANEjNq02/YKIyeQMKro1TiHIumDJv1RXpmAUJxH6GjRZO6zC3cZPX3STeKFhMnJjQsSRO1 lbm [file] d9PQFzE7PjSPS4VGV8V9LjOgb3NbsiJY6sTXGJVx0+DKsvkQSnaOwkBAPYCkj3SZrIUyBjDD8YKRm= ID Date Data Source [id number] 11/06/2019 04:19:09 PM EDT [facility] Value Range Interpretation Code Description Data Anjelica rce(s) Supporting Document(s) Glucose [Mass/volume] in Capillary blood by Glucometer 179 mg/dL 70- 140 [facility] ID Date Data Source [id number] 11/06/2019 03:58:46 PM EDT [facility] Name Value Range Interpretation Code Description Data Anjelica rce(s) Supporting Document(s) [facility] URBSAk0mDaDHHgPj73/SNWhdLOMps0DaWWupPKt8LSrbPWDlF9XjFUU2sW4wTBZ3QYkAEqCrMwPqQJB5 lbm [file] AgICAgICAgICAgICAgICAgICAgICAgICAgICAgICAg ICAgICAgICAgICAgICAgICAgICAgICAgICAgICAgICAgICAgICAgICAgICAgICAgICAgICAgICANCiAg ICAgICAgICAgICAgICAgICAgICAgICAgICAgICAgICAgICAgICAgICAgICAgICAgICAgICAgICAgICAg ICAgICAgICAgICAgICAgICAgICAgICAgICAgICAgIC AgICAgICANCiAgICAgICAgICAgICAgICAgICAgICAgICAgICAgICAgICAgICAgICAgICAgICAgICAgIC AgICAgICAgICAgICAgICAgICAgICAgICAgICAgICAgICAgICAgICAgICAgICAgICANCiAgICAgICAgIC AgICAgICAgICAgICAgICAgICAgICAgICAgICAgICAg ICAgICAgICAgICAgICAgICAgICAgICAgICAgICAgICAgICAgICAgICAgICAgICAgICAgICAgICAgICAN CiAgICAgICAgICAgICAgICAgICAgICAgICAgICAgICAgICAgICAgICAgICAgICAgICAgICAgICAgICAg ICAgICAgICAgICAgICAgICAgICAgICAgICAgICAgIC AgICAgICAgICANCiAgICAgICAgICAgICAgICAgICAgICAgICAgICAgICAgICAgICAgICAgICAgICAgIC AgICAgICAgICAgICAgICAgICAgICAgICAgICAgICAgICAgICAgICAgICAgICAgICAgICANCiAgICAgIC AgICAgICAgICAgICAgICAgICAgICAgICAgICAgICAg ICAgICAgICAgICAgICAgICAgICAgICAgICAgICAgICAgICAgICAgICAgICAgICAgICAgICAgICAgICAg ICANCiAgICAgICAgICAgICAgICAgICAgICAgICAgICAgICAgICAgICAgICAgICAgICAgICAgICAgICAg ICAgICAgICAgICAgICAgICAgICAgICAgICAgICAgIC AgICAgICAgICAgICANCiAgICAgICAgICAgICAgICAgICAgICAgICAgICAgICAgICAgICAgICAgICAgIC AgICAgICAgICAgICAgICAgICAgICAgICAgICAgICAgICAgICAgICAgICAgICAgICAgICAgICANCiAgIC AgICAgICAgICAgICAgICAgICAgICAgICAgICAgICAg ICAgICAgICAgICAgICAgICAgICAgICAgICAgICAgICAgICAgICAgICAgICAgICAgICAgICAgICAgICAg ICAgICANCjw/gBLkG3yksQEsxzC4B3wcNg0ILc9VZK2lw4PjMHJgXKzjsiGtUgfQFvWuFUIbQroORco5 XLvrDR8QzEKmQ7GlJ4UsYLmmBM3PWXWbHDLqxCFyQA FyEQHqXoX9ODPzDLswVR9OoGOrSUwsCFGhUBQwPT6ZILFgU983tnKaED4SBy0BIpGrTX2ppz0MJIZoDF RhZbeDIor5XXluJF9EkSLqwJHnRSVaPSIQWkLfT1flw6WkBBMlQVJJAFmsHE2Xi9SehVJiVSe+Pg0KZW 1ba2PvZPkrNEOxNA9afh8EMQuIXiCsG7PifNbiGRSy ejF7gQBcIBT1WBQiVHCxv3NqBXFJrR3atpakJtPtJVVwQU1cZI9bIFJvRERuCxG4JEIIVU9CGPWsZAMg hSCaVOMdUSPBYE8AGEraSBI3OWLfdsGklRPdAAcbLI7FKIGdyiLoHWMlVSBXYYq+Xd3FCU9ho5LsGBgl YpHfDA6sdz3COOtGTkEyU6R8cGBwB6W1KMitPb5GOL IfSBKjDCDaEIGFVHqgJT1HEN9bxqR5CA1QpRKaSPBiMRZphUWpTRa8I92orJBsJChnGJ1ZMBY+Sherry+Pg 0TMEVaWVVeETUgCsMkXGXGFdTcK7EnT4MFy3CaV9YzSZ16bQsyoqNoOBktKQ9TOO8nGSApIQFTKO0DrE JxbM5jpsVwGUBrNBDFMsUjD37hgNUfIWMvRYAySCUe Vn9CADEcS4LwixDnkRmgrbFuPZUrAJFXNI2YAGytijPuhGLufUvfBM31rNntIS1GCa2HSsWdBO4ezw7J uHJoLw0MCPGgWv7ZSBYdMTJhXDBaUJA7TRIaTbJnXIafYIDyHFRzILG1MJHvUWWtQI6UDbXqCZCjZPG7 SGNsORWgEFJhlc1HTUJcQPHxBwN4JuNzRUAvXWThWE brTGAxAASuYTW5JEFjXNGdWZ8ISoSlYSOdIDU2XAMrCMXoSBXpek6OKHJaHCXsOaH5QwEsECCbDFQrFK oiQMVmXYVnVDA6BKKlWZAoVU6ELzBwDZDlCKGcGASdCLEjWEXtoz6AABUcZUAxWwR4RMAzGXBhSVUcTF quYHInMFJ0AkW8BJKcBQOaFY1NZzTeGAGyEGZ3UOPa VYZiZEXkog7XIPNjYFDqMVjkJWXsZCYhNOXySPgkOUYlNVL5VEKrRRNdEVJnHE8LYzEsNNMhNMB9BjGo FCIbOJStml5UWXWtAMBrCcK7VWXyKCKcXBMzXSlnCUZqEUZ9Gnq9ZZAoWQHhDG4VJbYsEXubZRADKnt1 GNdcT2i7BMQjWo6UN9Vps5VfCMSmGDQWWJnyQT1ana WiBSYbWq4MM1mEFwauZIj9BXMxI3TwGZNiExX6RIJzKcK4MlZmYhh6Ouy8Lm0rNDD3WBd4NWJ4PDOrOk ByVScjINMsNIsbNjWaLDckIZA5PiKwJI8OXd3AIgS6JNR2kHGuWo3JHlEcNR7EQIXUL4RVUk== ID Date Data Source [id number] 11/06/2019 03:18:25 PM EDT [facility] Name Value Range Interpretation Code Description Data Anjelica rce(s) Supporting Document(s) Consultation [facility] FDIIOx8vIpAAGwJv80/TCGtrYSLgj9PfFJhkYHz4PNjnHKVfA8YkKFG3kY0dDMH7FUcDIoHhReVdQGZ3 lbm UlNldZClVqOUXfYccNJmVjQDelKnbeeNQbIM0KdOP0ORQpG21pKEIiMYXdZ7DoQJN3KfQ+Sn5SBJXxrY RiKT2YYccN7I4pn8s2Pe0pOI+DgAWKtGhsfX/4sDbnKFEnU4aANRqkP7IWWZ+hR7Fq267VJ4+GWRr4O7 tMZJKguHm2YBjU3nnRe+Z2ERPMa73958nhX7c43/fW /8ntwsO9Mrti7//mtZdFYXNZ+rc3EY7C/jnP1S7Nf1Bs8A5Lqb5wA6+y7Qprp4rxyJjfram90FMnkEcq DKl4D0jwo3/T2g08okY29c05va804KFVreSD8i9fg90b/4eF726yaq7XhxuMarPL+9ITBA+JYFgXD0gb YGnv3lDPuv2kZrv5urytOmLpMKF+rEw/Z24PcK2PnG tZp1PlZtnnR2voVKWe/pVVykjOK60N9Eu6V4077wBcVUHifqFz4ynJN6++K54es6iWl1C2YlDF8ifI7f KdNXEJ+wEdC1D1AK8pJpHg3IEhZvtRcneQJBFC+dQvXPBO20zXukV/ybVLQ+t9MOnocK2Fb85yAPozxv sJC2uN8LiguUYbrf8b6W4Tprt9ogONlcBNn/GUJJk1 sduh10W1MowDNqcxcmzTkuygWWxyOnoj8ORnXocadgodLXnyBJZ0rqzjMoNjcpnjEQuuMseeqdIog980 [file] I7C3VRtzDQVzTiB4BRE8WcWlJR0MOr5MWnZ9BNR9vAHnTs3UZDQ9TjJILcKwEY7EHLs= ID Date Data Source [id number] 11/06/2019 02:29:42 PM EDT [facility] Name Value Range Interpretation Code Description Data Anjelica rce(s) Supporting Document(s) History and Physical [facility] XFZTMh7eHdFIFuCk92/WRBznHXPhx2XlDFfcGQf8ADsdTVIqI6CtRHR5bO4nOBK4YEzJXjBgNwQxZZQ0 lbm [file] AgICAgICAgICAgICAgICAgICAgICAgICAgICAgICAg ICAgICAgICAgICAgICAgICAgICAgICAgICAgICAgICAgICAgICAgICAgICAgICAgICAgICAgICAgICAg DQogICAgICAgICAgICAgICAgICAgICAgICAgICAgICAgICAgICAgICAgICAgICAgICAgICAgICAgICAg ICAgICAgICAgICAgICAgICAgICAgICAgICAgICAgIC AgICAgICAgICAgDQogICAgICAgICAgICAgICAgICAgICAgICAgICAgICAgICAgICAgICAgICAgICAgIC AgICAgICAgICAgICAgICAgICAgICAgICAgICAgICAgICAgICAgICAgICAgICAgICAgICAgDQogICAgIC AgICAgICAgICAgICAgICAgICAgICAgICAgICAgICAg ICAgICAgICAgICAgICAgICAgICAgICAgICAgICAgICAgICAgICAgICAgICAgICAgICAgICAgICAgICAg ICAgDQogICAgICAgICAgICAgICAgICAgICAgICAgICAgICAgICAgICAgICAgICAgICAgICAgICAgICAg ICAgICAgICAgICAgICAgICAgICAgICAgICAgICAgIC AgICAgICAgICAgICAgDQogICAgICAgICAgICAgICAgICAgICAgICAgICAgICAgICAgICAgICAgICAgIC AgICAgICAgICAgICAgICAgICAgICAgICAgICAgICAgICAgICAgICAgICAgICAgICAgICAgICAgDQogIC AgICAgICAgICAgICAgICAgICAgICAgICAgICAgICAg ICAgICAgICAgICAgICAgICAgICAgICAgICAgICAgICAgICAgICAgICAgICAgICAgICAgICAgICAgICAg ICAgICAgDQogICAgICAgICAgICAgICAgICAgICAgICAgICAgICAgICAgICAgICAgICAgICAgICAgICAg ICAgICAgICAgICAgICAgICAgICAgICAgICAgICAgIC AgICAgICAgICAgICAgICAgDQogICAgICAgICAgICAgICAgICAgICAgICAgICAgICAgICAgICAgICAgIC AgICAgICAgICAgICAgICAgICAgICAgICAgICAgICAgICAgICAgICAgICAgICAgICAgICAgICAgICAgDQ ogICAgICAgICAgICAgICAgICAgICAgICAgICAgICAg ICAgICAgICAgICAgICAgICAgICAgICAgICAgICAgICAgICAgICAgICAgICAgICAgICAgICAgICAgICAg GQEhQXRvMUJeFJi8W3yhZIPzEMSaBZ0oMFl0Cv1+REnVFaWrHPG9xkPmoX1BEX7mh7TfLCmfXXCfc6En DVv1AY2WSTFqHMatWB0SREowht0BDLZiTGNpsCDGr0 yzJeFnEZY2PVTwNlivOW6YOYKvL2qhznQxDDDyRQNDOJxxSNXTGTntFPDBEPPqJGFzGsPtHkIqKECuLK NhQCXMQZV7ZRZxBaWdPMBgYKYdFoYfEIBEBNVfQMDvQcPrOYLrJFTqAcvmXDOGTGF6QFTeXrXeTMPdEL LfUcOtZIIYCGN5RFBrIxYcWaSkZALwJS3HJOHwX447 bnQgMTcNCj4+AYhghjDvAntXYkF5MNJqs2VhZMp7VL5NUOYmJxlrh8AiNQgwXSJQPTsdBQ0YEQU1GON7 OWBwIu3JTXEdF409giAvIU8FBx6PDiBoLE3bhy8IDZvcVIVkRjmTMga3VOwvOF2JeWCvYRyGUbCyUann V7JksnXiSLQlN2HjyJBoPT1OVUZ0WRWlWgUeHrRlWX WuVMshWPIVHZtJCeBqA7Ixv9HrBpZ7EJNcJaMyLRaoXROzLaQ6SB75uDflRY5CPAPkENXfVZ76DRT2TQ CaOh7MHj5BKxZeUK3niq3GHLgdDGWeEqsGBuy7KOokTK1YnTHfY4LxySTco3wQBqEiB7WARPG9BUGaEs 2FHZPvQaYtCDXdMHlvGQ9xDULlZNJYsSlfvdL8QE5Z HW6cfeXvHB9XPcXgJa4lEf5YWcUiY9DiT0GbQZKcPBYHQDivTW5LYLpdEA9xVC1Ud8IUrATgtO0qhk1Q OWXvQTZyAfrxee9AMnraA8T5rNhxNVAjWGpaWFLRLSfzLG0PRQCkAKX6FFA7ZmTrWVZESlZbT92sJW0U L5Ify86zDcK4CWZpRzWeNEbvHC59pTgteiOmmVCiiY dbFM4KRp8+BRivneVgYotETfzxABCEUuJwVgDJBzIjLJQrDCCwRMYbAvV4WnFiHl0ZOLIpXGEnRZNpZx YlCTKqXOHdRZqwGVQiNXp4EtOtDRNmWAFtFV9FMaKpVSWaEpg9EEPqYPNlEIYbbo9VCKKzEOSmJFY8Mc KhWHCoZFVuDCmcFSKzUKQwEyX5BTEaVPGyXN2RSxHe RTAqTFW1RaUqXUXsFIQycj3AVSHfMUTkHfS2ZGYaODUaHJFqOEkwFOWyHKN2Rxj1AEUmVVJhQI5JFqQp YFWhIJq3WOLxGCUvIARpxt9TTETuZZWqJPE0UeSaXUEaKKLkNCnlVLCxBODaUREnJRJxVFNaJG5YDtBa UVQlJZS7MwpgFHSkDHYllp3RKECpWEXqWND1CCBpFL TiVNWnKUyzUEDoNZM4KAF3JQRxXKXeSF7YFpLmDIGdGAm9HFUsVEYoCJUfqn3TCHGbDCOnGun8CPIrYM HfPMOrMYexERNmFQM2JiUeZIPkYKFeZC6CSiSsWGWlJXt3LzPwTXUhXYDagw7TNQYeKDZkRyD4IOVnRC CfESJfMDolSSDpGAWxWkh7MIUdCJOiNJ6FCjYpILLe XeT9PIDpLLIuWJHvko0MSCNwEZTkRcj6EcTfAIQvSBFnVIrqENQrPRBuEgl1PYDeDKUkON2VBvOiNPTo AeL6NVOrKGVsUSRscz6GSLIkXJDkVsq0GcKlFIHaVUYzTYlhWVNxHAB8MUduUZEyCMUfPG6AUiPgFQFy PGM1NyvpTGQnPEQsfc3CYGMvFMW0HzLjXZXgQEVpUP WaSBseQTQaLFL1IPv0OICeRJAlIE8OAaWaCHChHGk8ZSKdRQLvXLBwla0YOFMdZXS3UFrfIFZuRWKiAP EtGAisDXBsIKJnNEUyXYKwGTPrUZ7YTtWjWHFqRGC5UJCwBSKdJHTwmp4GAOGbTBZ5ZNTkNJRhFGJpFU VtPFfmAJAoOUR2ZDV3PKAbAUPwNA2OIyTnEABkWWk3 IiYhPNZzPJJawf3DFNBlXAM0ZNV6KOHsUOHhFKTeEIdsIPExDXR2XIi5CEYgAQGdSD8FPqFyINOfMCq7 HeWbDAIoREMsrt3SOTWgMVH0QGljRgOeULCnYWPqSDebNXAaUQL8WYD6FNYgRQUeOE3YFyQuBCFaOpD4 PjVmFOUkDSRbmb7ZVVPvDZM3WWP8QcAjQQCiMXTfLP btIGMzRCWbFdF5BDDbLBNjCM7VMuDiXBNuWsJnBrQkCPTbKEZomf4MFMDcXNU7VrQnBLPmSNSdDZFfBM dbUQIlWVFeAqN9LVWcFTDzQW6JRdWiITOxBmY8ZUtlZPJyMLTjth5HOKFdAUJ3GSVrNeBiQSZiRDVzER bzEEWdSDr2UDU0APFxZLYwOF9VUdRmPNHrQfT4VYDn RBMpDEMkde5DSPIcPXB4GSreLZLkORUpTTYtKBpjGISgKMr3DQD1ILYkZIStYR6DLrMbEXUyTiYjAyUv BUHgXQSxss7VKPRtHDI0AuCsQBUhFWGzRRUnNCseYDZlAAt8UkE1GHFzJBAaPQ8UWtUdACZgMnjsAFKt TEUwVLXsng2NSVIzBSF2QUU5XPFvLFAoRAXmZQqwTJ PcSPg8QQLeSPLlETHkSJ8RQbQgPFklMOGQXub4KJosP6u8VNH6GG8FQ4Uey3ClXUacUXYNGUgkCZ4tml BfBVYlYs5VZ9hAGqt7CuYzCXIcIHTfQsY3XcIaWAv4ZZF9SvNmRKakMAmpUt9aSTv9PDEqSGT0HFX9GG BzR5K7QaEhGitzEiFrEPSnFMFwOgTpKT7JGd2BUdR3NEA4rACjYa0QTsu1KEBOBjCcQH9JSEk= ID Date Data Source [id number] 11/06/2019 02:29:07 PM EDT [facility]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 Source [id number] 11/04/2019 07:47:40 PM EDT [facility] Name Value Range Interpretation Code Description Data Anjeliac rce(s) Supporting Document(s) Consultation [facility] [id number]/[id number]gBYD1sM0fLXC3TFlGPlHyVcKyENT5 lbm [file] [id number]+QE1vVRk+[id number] ID Date Data Source [id number] 11/04/2019 08:01:19 PM EDT [facility] Name Value Range Interpretation Code Description Data Anjelica rce(s) Supporting Document(s) Color of Urine [facility] Clarity of Urine [facility] Specific gravity of Urine by Refractometry automated 1.035 1.003 -1.030 H [facility] pH of Urine by Automated test strip 5.0 5.0-8.0 [facility] Protein [Mass/volume] in Urine by Automated test strip 100 mg/dL Neg [facility] Glucose [Mass/volume] in Urine by Automated test strip 50 mg/dL Neg [facility] Ketones [Mass/volume] in Urine by Automated test strip Neg [facility] Bilirubin.total [Presence] in Urine by Automated test strip Negative [facility] Hemoglobin [Presence] in Urine by Automated test strip Neg [facility] Leukocyte esterase [Presence] in Urine by Automated test strip Negative [facility] Nitrite [Presence] in Urine by Automated test strip Negati [facility] Leukocytes [#/area] in Urine sediment by Automated count 6 /HPF 0 -5 H [facility] Erythrocytes [#/area] in Urine sediment by Automated count 46 /HPF 0-3 H [facility] Epithelial cells.squamous [#/area] in Urine sediment by Auto mated count 1 /HPF None [facility] Mucus [#/area] in Urine sediment by Microscopy low power field None [facility] Granular casts [#/area] in Urine sediment by Microscopy low power field 2 /LPF None [facility] ID Date Data Source [id number] 11/04/2019 08:20:07 PM EDT [facility] Name Value Range Interpretation Code Description Data Anjelica rce(s) Supporting Document(s) Amphetamine [Presence] in Urine by Screen method Negative [facility] Benzodiazepines [Presence] in Urine by Screen method Negat [facility] (NOTE)Positive results are presumptive a nd unconfirmed;confirmatorytesting can be ordered at the [facility] at [phone] [facility] at [phone] within 5 days of collection. Cannabinoids [Presence] in Urine by Screen method Negative [facility] Benzoylecgonine [Presence] in Urine by Screen method Negat [facility] Methadone [Presence] in Urine by Screen method Negative [facility] Opiates [Presence] in Urine by Screen method Negative [facility] Oxycodone [Presence] in Urine by Screen method Negative [facility] Fentanyl+Norfentanyl [Presence] in Urine by Screen method Negative [facility] (NOTE)Positive results are presumptive a nd unconfirmed;confirmatorytesting can be ordered at the [facility] at [phone] [facility] at [phone] within 5 days of collection. Service comment [facility] Results below the indicated cutoff (ng/m L), are reported as"Negative." Note: for medical purposes only; not valid for legalor employment testing. ID Date Data Source [id number] 11/04/2019 07:21:47 PM EDT [facility] XR CHEST FRONTAL ONLY [id number] RESULTI nterpreted by:Alma Thompson MDINDICATION: 54-year-old female [...] below the left hemidiaphragm and beyond the [id number], the sidehole below the GE junction. EKG [...] rce(s) Supporting Document(s) ID Date Data Source [id number] 11/04/2019 06:58:40 PM [facility] Name Value Range Interpretation Code Description Data Anjelica rce(s) Supporting Document(s) Troponin I.cardiac [Mass/volume] in Blood 0.01 ng/mL 0.00-0.08 [facility] ID Date Data Source [id number] 11/04/2019 07:33:44 PM [facility] Value Range Interpretation Code Description Data Anjelica rce(s) Supporting Document(s) ABO and Rh group [Type] in Blood [facility] Blood group antibody screen [Presence] in Serum or Plasma [facility] Blood bank comment [facility] ID Date Data Source [id number] 11/04/2019 07:06:38 PM [facility] Name Value Range Interpretation Code Description Data Anjelica rce(s) Supporting Document(s) Leukocytes [#/volume] in Blood by Automated count 22.2 10*3/uL 4-10 H [facility] Erythrocytes [#/volume] in Blood by Automated count 3.96 10*6/uL 4.1- 5.3 L [facility] Hemoglobin [Mass/volume] in Blood 11.2 g/dL 11.5-15.5 [facility] Hematocrit [Volume Fraction] of Blood by Automated count 32.4 % 3 6-45 L [facility] Erythrocyte mean corpuscular volume [Entitic volume] by Auto mated count 81.7 fL 80-96 [facility] Erythrocyte mean corpuscular hemoglobin [Entitic mass] by Automated count 28.4 pg 27-33 [facility] Erythrocyte mean corpuscular hemoglobin concentration [Mass/volume] by Automated count 34.7 g/dL 32.0-36.0 [facility] Erythrocyte distribution width [Ratio] by Automated count 14.2 % 11.5-14.5 [facility] Platelets [#/volume] in Blood by Automated count 303 10*3/uL 150-400 [facility] Differential cell count method - Blood [facility] Neutrophils/100 leukocytes in Blood by Automated count 81 % [facility] Lymphocytes/100 leukocytes in Blood by Automated count 14 % [facility] Monocytes/100 leukocytes in Blood by Automated count 5 % [facility] Eosinophils/100 leukocytes in Blood by Automated count 0 % [facility] Basophils/100 leukocytes in Blood by Automated count 0 % [facility] Neutrophils [#/volume] in Blood by Automated count 18.02 10*3/uL 1.8- 7.0 H [facility] Lymphocytes [#/volume] in Blood by Automated count 3.00 10*3/uL 1.2-4 .0 [facility] Monocytes [#/volume] in Blood by Automated count 1.07 10*3/uL 0-0.8 H [facility] Eosinophils [#/volume] in Blood by Automated count 0.04 10*3/uL 0-0.5 [facility] Basophils [#/volume] in Blood by Automated count 0.06 10*3/uL 0-0.2 [facility] Nucleated erythrocytes/100 leukocytes [Ratio] in Blood by Automated count 0 /100{WBCs} 0-0 [facility] ID Date Data Source [facility] Name Value Range Interpretation Code Description Data Anjelica rce(s) Supporting Document(s) Prothrombin time (PT) 14.1 s 12.5-14.9 [facility] INR in Platelet poor plasma by Coagulation assay 1.08 [facility] Routine intensity oral anticoagulation I NR is typically 2.0-3.0. Target INR must be clinically individualized. ID Date Data Source 11/04/2019 07:20:42 PM [facility] Value Range Interpretation Code Description Data Anjelica rce(s) Supporting Document(s) aPTT in Platelet poor plasma by Coagulation assay 29.4 s 24.0-33. 0 [facility] ID Date Data Source 11/04/2019 07:28:32 PM [facility] Value Range Interpretation Code Description Data Anjelica rce(s) Supporting Document(s) Ethanol [Mass/volume] in Serum or Plasma Negative [facility] ID Date Data Source 11/04/2019 07:28:32 PM EDT [facility] Name Value Range Interpretation Code Description Data Anjelica rce(s) Supporting Document(s) Lipase [Enzymatic activity/volume] in Serum or Plasma 46 U/L 13-6 0 [facility] ID Date Data Source [id number] 11/04/2019 07:28:[facility] Name Value Range Interpretation Code Description Data Anjelica rce(s) Supporting Document(s) Albumin [Mass/volume] in Serum or Plasma by Bromocresol green (BCG) dye binding method 3.1 g/dL 3.5-5.2 [facility] Bilirubin.total [Mass/volume] in Serum or Plasma 0.4 mg/dL <1.2 [facility] Calcium [Mass/volume] in Serum or Plasma 7.8 mg/dL 8.6-10.0 L [facility] Chloride [Moles/volume] in Serum or Plasma 98 mmol/L 98-107 [facility] Creatinine [Mass/volume] in Serum or Plasma 0.90 mg/dL 0.50-0.90 [facility] Glucose [Mass/volume] in Serum or Plasma 248 mg/dL 70-140 H [facility] Alkaline phosphatase [Enzymatic activity/volume] in Serum or Plasma 75 U/L 35-104 [facility] Potassium [Moles/volume] in Serum or Plasma 3.9 mmol/L 3.4-5.1 [facility] Protein [Mass/volume] in Serum or Plasma 5.4 g/dL 6.4-8.3 L [facility] Sodium [Moles/volume] in Serum or Plasma 134 mmol/L 136-145 L [facility] Aspartate aminotransferase [Enzymatic activity/volume] in Serum or Plasma 257 U/L <32 H [facility] Urea nitrogen [Mass/volume] in Serum or Plasma 11 mg/dL 6-20 [facility] Osmolality of Serum or Plasma by calculation 286 mosm/kg 275-300 [facility] Creatinine/Urea nitrogen [Mass Ratio] in Serum or Plasma 12 [facility] Bicarbonate [Moles/volume] in Serum 21 mmol/L 22-29 L [facility] Alanine aminotransferase [Enzymatic activity/volume] in Seru m or Plasma 137 U/L <33 H [facility] Anion gap 3 in Serum or Plasma 15 mmol/L 8-15 [facility] Albumin/Globulin [Mass Ratio] in Serum or Plasma 1.3 [facility] Glomerular filtration rate/1.73 sq M pre dicted among non-blacks [Volume Rate/Area] in Serum or Plasma by Creatinine-based formula (MDRD) 72 mL/min/1.73m2 >60 [facility] Glomerular filtration rate/1.73 sq M pre dicted among blacks [Volume Rate/Area] in Serum or Plasma by Creatinine-based formula (MDRD) 83 mL/min/1.73m2 >60 [facility] ID Date Data Source [id number] 11/04/2019 06:59:10 PM [facility] Name Value Range Interpretation Code Description Data Anjelica rce(s) Supporting Document(s) Sodium [Moles/volume] in Blood 129 mmol/L 136-145 L [facility] Potassium [Moles/volume] in Blood 3.7 mmol/L 3.4-5.1 [facility] Chloride [Moles/volume] in Blood 97 mmol/L 98-107 L [facility] Carbon dioxide, total [Moles/volume] in Blood 23 mmol/L 22-29 [facility] Calcium.ionized [Moles/volume] in Blood 1.16 mmol/L 1.13-1.32 [facility] Glucose [Mass/volume] in Blood 244 mg/dL 70-140 H [facility] Urea nitrogen [Mass/volume] in Blood 11 mg/dL 6-20 [facility] Creatinine [Mass/volume] in Blood 0.9 mg/dL 0.50-0.90 [facility] Hematocrit [Volume Fraction] of Blood 34 % 36-45 L [facility] Hemoglobin [Mass/volume] in Blood by calculation 11.6 g/dL 11.5-15.5 [facility] ID Date Data Source [id number] 11/04/2019 06:43:44 PM [facility] Name Value Range Interpretation Code Description Data Anjelica rce(s) Supporting Document(s) [facility] [id number] [facility] [file] [id number] ID Date Data Source [id number] 11/04/2019 06:58:40 PM EDT [facility] Name Value Range Interpretation Code Description Data Anjelica rce(s) Supporting Document(s) pH of Arterial blood 7.30 7.38-7.44 L [facility] Carbon dioxide [Partial pressure] in Arterial blood 47 mmHg 35-40 H [facility] Oxygen [Partial pressure] in Arterial blood 48 mmHg 95-100 LL [facility] Base excess standard in Arterial blood by calculation [facility] Oxygen saturation Calculated from oxygen partial press ure in Arterial blood 79 % 94-100 L [facility] Lactate [Moles/volume] in Arterial blood 2.6 mmol/L 0.5-2.2 H [facility] Bicarbonate [Moles/volume] in Arterial blood 24 mmol/L [facility] ID Date Data Source [id number] 09/03/2019 04:14:54 PM EDT [facility] Measurements & CalculationsHeight: 61 inches 154.94 cm Weight: 171.2 pounds 77.82 kg Body Mass Index (BMI): 32.46BMI Interpretation: ObeseBody Surface Area (BSA): 1.77Weight Management Education Done (Nutrition/Physical Activity)Vital SignsTemperature: 98.3F oral Pulse Rate: 59 beats/minuteRespiratory Rate: 20 respirations/minuteBlood Pressure: 145/87 right arm sitting automaticO2 Saturation: 99% room airVital Signs performed by: Sorin Mcintosh MA, September 03, 2019 4:24 PMInitial Intake [facility]Smoking, Tobacco, Vaping or Smoke Exposure [...] during this visit, including review of any [id number] medications, herbal therapies, and/or supplements.Allergy ReviewAllergy List [...] 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 (AGO54-A44.81) Assessment: OTC cold medsAssessed:Bilateral headache (ICD-784.0) ([id number]) Assessment: OMT done w/reliefAssessment not Saved Bilateral headache ([id number]): Comment OnlyOMT done w/reliefMedications:ALLERGY 10 MG ORAL [...] (Mild)Orders:Adult - Ofc Vst, EST, Level III [CPT-16436] Name Value Range Interpretation Code Description Data Anjelica rce(s) Supporting Document(s) Procedure Social History Code Duration Value Status Description Data Source(s ) Alcohol intake 01/07/2020 12:00:00 AM EDT Current non-d bari of alcohol (finding) completed Current non-drinker of alcohol (finding) [facility] Tobacco use and exposure 01/07/2020 12:00:00 AM EDT Never used co mpleted Never used [facility] Cigarette pack-years 01/07/2020 12:00:00 AM EDT [facility] Cigarettes smoked current (pack per day) - Reported 01/07/20 20 12:00:[address] [facility] Smoking 01/07/2020 12:00:00 AM EDT Current every day smoker co mpleted Current every day smoker [facility] Vital Signs ID Date Data Source UNK Name Value Range Interpretation Code Description Data Source(s) Body weight 2960 [oz_av] 2960 [oz_av] TOD ([facility]) Systolic blood pressure 149 mm[Hg] 149 mm[Hg] A [facility]) Body mass index (BMI) [Ratio] 35 kg/m2 35 kg/ m2 TOD ([facility]) Body height 61 [in_i] 61 [in_i] TOD ([facility]) Diastolic blood pressure 71 mm[Hg] 71 mm[Hg] TOD ([facility]) Body weight 2988.8 [oz_av] 2988.8 [oz_av] ATHEN A ([facility]) Systolic blood pressure 121 mm[Hg] 121 mm[Hg] A [facility]) Body mass index (BMI) [Ratio] 35.3 kg/m2 35.3 k g/m2 TOD ([facility]) Body height 61 [in_i] 61 [in_i] TOD ([facility]) Diastolic blood pressure 55 mm[Hg] 55 mm[Hg] TOD ([facility]) Body weight 2988.8 [oz_av] 2988.8 [oz_av] ATHEN A ([facility]) Systolic blood pressure 121 mm[Hg] 121 mm[Hg] A THENA ([facility]) Body mass index (BMI) [Ratio] 35.3 kg/m2 35.3 k g/m2 TOD ([facility]) Body height 61 [in_i] 61 [in_i] TOD ([facility]) Diastolic blood pressure 55 mm[Hg] 55 mm[Hg] TOD ([facility]) Body height 61 [in_i] 61 [in_i] TOD ([facility]) Body height 61 [in_i] 61 [in_i] TOD ([facility]) Body height 61 [in_i] 61 [in_i] TOD ([facility]) Body height 61 [in_i] 61 [in_i] TOD ([facility]) Body height 61 [in_i] 61 [in_i] TOD ([facility]) Body height 61 [in_i] 61 [in_i] TOD ([facility]) Body height 61 [in_i] 61 [in_i] TOD ([facility]) Body height 61 [in_i] 61 [in_i] TOD ([facility]) Body height 61 [in_i] 61 [in_i] TOD ([facility]) Body height 61 [in_i] 61 [in_i] TOD ([facility]) Body height 61 [in_i] 61 [in_i] TOD ([facility]) Body height 61 [in_i] 61 [in_i] TOD ([facility]) Body height 61 [in_i] 61 [in_i] OTD ([facility]) Body height 61 [in_i] 61 [in_i] TOD ([facility]) Body weight 2786 [oz_av] 2786 [oz_av] TOD ([facility]) Systolic blood pressure 168 mm[Hg] 168 mm[Hg] A THENA ([facility]) Body mass index (BMI) [Ratio] 32.9 kg/m2 32.9 k g/m2 TOD ([facility]) Body height 61 [in_i] 61 [in_i] TOD ([facility]) Diastolic blood pressure 87 mm[Hg] 87 mm[Hg] TOD ([facility]) Body weight 2786 [oz_av] 2786 [oz_av] TOD ([facility]) Systolic blood pressure 168 mm[Hg] 168 mm[Hg] [facility] Body mass index (BMI) [Ratio] 32.9 kg/m2 32.9 k g/m2 TOD ([facility]) Body height 61 [in_i] 61 [in_i] TOD ([facility]) Diastolic blood pressure 87 mm[Hg] 87 mm[Hg] TOD ([facility]) Body weight 2786 [oz_av] 2786 [oz_av] TOD ([facility]) Systolic blood pressure 168 mm[Hg] 168 mm[Hg] [facility] Body mass index (BMI) [Ratio] 32.9 kg/m2 32.9 k g/m2 TOD ([facility]) Body height 61 [in_i] 61 [in_i] TOD ([facility]) Diastolic blood pressure 87 mm[Hg] 87 mm[Hg] TOD ([facility]) Body weight 2786 [oz_av] 2786 [oz_av] TOD ([facility]) Systolic blood pressure 168 mm[Hg] 168 mm[Hg] [facility] Body mass index (BMI) [Ratio] 32.9 kg/m2 32.9 k g/m2 TOD ([facility]) Body height 61 [in_i] 61 [in_i] TOD ([facility]) Diastolic blood pressure 87 mm[Hg] 87 mm[Hg] TOD ([facility]) Body weight 2786 [oz_av] 2786 [oz_av] TOD ([facility]) Systolic blood pressure 168 mm[Hg] 168 mm[Hg] A THENA ([facility]) Body mass index (BMI) [Ratio] 32.9 kg/m2 32.9 k g/m2 TOD ([facility]) Body height 61 [in_i] 61 [in_i] TOD ([facility]) Diastolic blood pressure 87 mm[Hg] 87 mm[Hg] TOD ([facility]) Body weight 2786 [oz_av] 2786 [oz_av] TOD ([facility]) Systolic blood pressure 168 mm[Hg] 168 mm[Hg] [facility] Body mass index (BMI) [Ratio] 32.9 kg/m2 32.9 k g/m2 TOD ([facility]) Body height 61 [in_i] 61 [in_i] TOD ([facility]) Diastolic blood pressure 87 mm[Hg] 87 mm[Hg] TOD ([facility]) Body weight 2786 [oz_av] 2786 [oz_av] TOD ([facility]) Systolic blood pressure 168 mm[Hg] 168 mm[Hg] A THENA ([facility]) Body mass index (BMI) [Ratio] 32.9 kg/m2 32.9 k g/m2 TOD ([facility]) Body height 61 [in_i] 61 [in_i] TOD ([facility]) Diastolic blood pressure 87 mm[Hg] 87 mm[Hg] TOD ([facility]) Body weight 2786 [oz_av] 2786 [oz_av] TOD ([facility]) Systolic blood pressure 168 mm[Hg] 168 mm[Hg] [facility] Body mass index (BMI) [Ratio] 32.9 kg/m2 32.9 k g/m2 TOD ([facility]) Body height 61 [in_i] 61 [in_i] TOD ([facility]) Diastolic blood pressure 87 mm[Hg] 87 mm[Hg] TOD ([facility]) Body mass index (BMI) [Ratio] 33.2 kg/m2 33.2 k g/m2 MEDENT ([facility]) Body weight 170.12 [lb_av] 170.12 [lb_av] MEDEN T ([facility]) Body height 60 [in_i] 60 [in_i] MEDENT ([facility]) 5'0" Body temperature 96.5 [degF] 96.5 [degF] MEDENT ([facility]) Body weight 2806.4 [oz_av] 2806.4 [oz_av] ATHEN A ([facility]) Systolic blood pressure 136 mm[Hg] 136 mm[Hg] A THENA ([facility]) Body mass index (BMI) [Ratio] 33.26 kg/m2 33.26 kg/m2 TOD ([facility]) Body height 61 [in_i] 61 [in_i] TOD ([facility]) Diastolic blood pressure 84 mm[Hg] 84 mm[Hg] TOD ([facility]) Body weight 2806.4 [oz_av] 2806.4 [oz_av] ATHEN A ([facility]) Systolic blood pressure 136 mm[Hg] 136 mm[Hg] A [place] ([facility]) Body mass index (BMI) [Ratio] 33.26 kg/m2 33.26 kg/m2 TOD ([facility]) Body height 61 [in_i] 61 [in_i] TOD ([facility]) Diastolic blood pressure 84 mm[Hg] 84 mm[Hg] TOD ([facility]) Body weight 2806.4 [oz_av] 2806.4 [oz_av] ATHEN A ([facility]) Systolic blood pressure 136 mm[Hg] 136 mm[Hg] A THENA ([facility]) Body height 61 [in_i] 61 [in_i] TOD ([facility]) Diastolic blood pressure 84 mm[Hg] 84 mm[Hg] TOD ([facility]) Body weight 2806.4 [oz_av] 2806.4 [oz_av] ATHEN A ([facility]) Systolic blood pressure 136 mm[Hg] 136 mm[Hg] [facility] Body height 61 [in_i] 61 [in_i] TOD ([facility]) Diastolic blood pressure 84 mm[Hg] 84 mm[Hg] TOD ([facility]) Body weight 2806.4 [oz_av] 2806.4 [oz_av] ATHEN A ([facility]) Systolic blood pressure 136 mm[Hg] 136 mm[Hg] [facility] Body height 61 [in_i] 61 [in_i] TOD ([facility]) Diastolic blood pressure 84 mm[Hg] 84 mm[Hg] TOD ([facility]) Body weight 2806.4 [oz_av] 2806.4 [oz_av] ATHEN A ([facility]) Systolic blood pressure 136 mm[Hg] 136 mm[Hg] [facility] Body height 61 [in_i] 61 [in_i] TOD ([facility]) Diastolic blood pressure 84 mm[Hg] 84 mm[Hg] TOD ([facility]) Body weight 2806.4 [oz_av] 2806.4 [oz_av] ATHEN A ([facility]) Systolic blood pressure 136 mm[Hg] 136 mm[Hg] [facility] Body height 61 [in_i] 61 [in_i] TOD ([facility]) Body weight 2806.4 [oz_av] 2806.4 [oz_av] ATHEN A ([facility]) Systolic blood pressure 136 mm[Hg] 136 mm[Hg] A THENA ([facility]) Body height 61 [in_i] 61 [in_i] TOD ([facility]) Diastolic blood pressure 84 mm[Hg] 84 mm[Hg] TOD ([facility]) Diastolic blood pressure 84 mm[Hg] 84 mm[Hg] TOD ([facility]) Body weight 2704 [oz_av] 2704 [oz_av] TOD ([facility]) Systolic blood pressure 141 mm[Hg] 141 mm[Hg] A [facility] ([facility]) Body mass index (BMI) [Ratio] 32.05 kg/m2 32.05 kg/m2 TOD ([facility]) Body height 61 [in_i] 61 [in_i] TOD ([facility]) Diastolic blood pressure 81 mm[Hg] 81 mm[Hg] TOD ([facility]) Body weight 2704 [oz_av] 2704 [oz_av] TOD ([facility]) Systolic blood pressure 141 mm[Hg] 141 mm[Hg] [facility] Body mass index (BMI) [Ratio] 32.05 kg/m2 32.05 kg/m2 TOD ([facility]) Body height 61 [in_i] 61 [in_i] TOD ([facility]) Diastolic blood pressure 81 mm[Hg] 81 mm[Hg] TOD ([facility]) Body weight 2704 [oz_av] 2704 [oz_av] TOD ([facility]) Systolic blood pressure 141 mm[Hg] 141 mm[Hg] A [facility] ([facility]) Body height 61 [in_i] 61 [in_i] TDO ([facility]) Diastolic blood pressure 81 mm[Hg] 81 mm[Hg] TOD ([facility]) Body weight 2704 [oz_av] 2704 [oz_av] TOD ([facility]) Systolic blood pressure 141 mm[Hg] 141 mm[Hg] [facility] Body height 61 [in_i] 61 [in_i] TOD ([facility]) Diastolic blood pressure 81 mm[Hg] 81 mm[Hg] TOD ([facility]) Body weight 2704 [oz_av] 2704 [oz_av] TOD ([facility]) Systolic blood pressure 141 mm[Hg] 141 mm[Hg] [facility] Body height 61 [in_i] 61 [in_i] TOD ([facility]) Diastolic blood pressure 81 mm[Hg] 81 mm[Hg] TOD ([facility]) Body weight 2704 [oz_av] 2704 [oz_av] TOD ([facility]) Systolic blood pressure 141 mm[Hg] 141 mm[Hg] [facility] Body height 61 [in_i] 61 [in_i] TOD ([facility]) Diastolic blood pressure 81 mm[Hg] 81 mm[Hg] TOD ([facility]) Body weight 2704 [oz_av] 2704 [oz_av] TOD ([facility]) Systolic blood pressure 141 mm[Hg] 141 mm[Hg] [facility] Body height 61 [in_i] 61 [in_i] TOD ([facility]) Diastolic blood pressure 81 mm[Hg] 81 mm[Hg] TOD ([facility]) Body weight 2704 [oz_av] 2704 [oz_av] TOD ([facility]) Systolic blood pressure 141 mm[Hg] 141 mm[Hg] [facility] Body height 61 [in_i] 61 [in_i] TOD ([facility]) Diastolic blood pressure 81 mm[Hg] 81 mm[Hg] TOD ([facility]) Body weight 2724 [oz_av] 2724 [oz_av] TOD ([facility]) Systolic blood pressure 115 mm[Hg] 115 mm[Hg] [facility] Body mass index (BMI) [Ratio] 32.28 kg/m2 32.28 kg/m2 TOD ([facility]) Body height 61 [in_i] 61 [in_i] TOD ([facility]) Diastolic blood pressure 79 mm[Hg] 79 mm[Hg] TOD ([facility]) Body weight 2724 [oz_av] 2724 [oz_av] TOD ([facility]) Systolic blood pressure 115 mm[Hg] 115 mm[Hg] [facility] Body mass index (BMI) [Ratio] 32.28 kg/m2 32.28 kg/m2 TOD ([facility]) Body height 61 [in_i] 61 [in_i] TOD ([facility]) Diastolic blood pressure 79 mm[Hg] 79 mm[Hg] TOD ([facility]) Body weight 2724 [oz_av] 2724 [oz_av] TOD ([facility]) Systolic blood pressure 115 mm[Hg] 115 mm[Hg] A [facility] ([facility]) Body height 61 [in_i] 61 [in_i] TOD ([facility]) Diastolic blood pressure 79 mm[Hg] 79 mm[Hg] TOD ([facility]) Body weight 2724 [oz_av] 2724 [oz_av] [facility] [facility]) Systolic blood pressure 115 mm[Hg] 115 mm[Hg] A [facility] ([facility]) Body height 61 [in_i] 61 [in_i] TOD ([facility]) Diastolic blood pressure 79 mm[Hg] 79 mm[Hg] TOD ([facility]) Body weight 2724 [oz_av] 2724 [oz_av] TOD ([facility]) Systolic blood pressure 115 mm[Hg] 115 mm[Hg] A [facility] ([facility]) Body height 61 [in_i] 61 [in_i] TOD ([facility]) Diastolic blood pressure 79 mm[Hg] 79 mm[Hg] TOD ([facility]) Body weight 2724 [oz_av] 2724 [oz_av] TOD ([facility]) Systolic blood pressure 115 mm[Hg] 115 mm[Hg] [facility] Body height 61 [in_i] 61 [in_i] TOD ([facility]) Diastolic blood pressure 79 mm[Hg] 79 mm[Hg] TOD ([facility]) Body weight 2724 [oz_av] 2724 [oz_av] TOD ([facility]) Systolic blood pressure 115 mm[Hg] 115 mm[Hg] [facility] Body height 61 [in_i] 61 [in_i] TOD ([facility]) Diastolic blood pressure 79 mm[Hg] 79 mm[Hg] TOD ([facility]) Body weight 2724 [oz_av] 2724 [oz_av] TOD ([facility]) Systolic blood pressure 115 mm[Hg] 115 mm[Hg] [facility] Body height 61 [in_i] 61 [in_i] TOD ([facility]) Diastolic blood pressure 79 mm[Hg] 79 mm[Hg] TOD ([facility]) Body weight 2718.4 [oz_av] 2718.4 [oz_av] ATHEN A ([facility]) Systolic blood pressure 149 mm[Hg] 149 mm[Hg] A [facility] ([facility]) Body mass index (BMI) [Ratio] 32.22 kg/m2 32.22 kg/m2 TOD ([facility]) Body height 61 [in_i] 61 [in_i] TOD ([facility]) Diastolic blood pressure 82 mm[Hg] 82 mm[Hg] TOD ([facility]) Body weight 2718.4 [oz_av] 2718.4 [oz_av] ATHEN A ([facility]) Systolic blood pressure 149 mm[Hg] 149 mm[Hg] A [facility] ([facility]) Body mass index (BMI) [Ratio] 32.22 kg/m2 32.22 kg/m2 TOD ([facility]) Body height 61 [in_i] 61 [in_i] TOD ([facility]) Diastolic blood pressure 82 mm[Hg] 82 mm[Hg] TOD ([facility]) Body weight 2718.4 [oz_av] 2718.4 [oz_av] ATHEN A ([facility]) Systolic blood pressure 149 mm[Hg] 149 mm[Hg] [facility] Body height 61 [in_i] 61 [in_i] TOD ([facility]) Diastolic blood pressure 82 mm[Hg] 82 mm[Hg] TOD ([facility]) Body weight 2718.4 [oz_av] 2718.4 [oz_av] ATHEN A ([facility]) Systolic blood pressure 149 mm[Hg] 149 mm[Hg] A [facility] ([facility]) Body height 61 [in_i] 61 [in_i] TOD ([facility]) Diastolic blood pressure 82 mm[Hg] 82 mm[Hg] TOD ([facility]) Body height 61 [in_i] 61 [in_i] TOD ([facility]) Diastolic blood pressure 82 mm[Hg] 82 mm[Hg] TOD ([facility]) Body weight 2718.4 [oz_av] 2718.4 [oz_av] ATHEN A ([facility]) Systolic blood pressure 149 mm[Hg] 149 mm[Hg] [facility] Body height 61 [in_i] 61 [in_i] TOD ([facility]) Diastolic blood pressure 82 mm[Hg] 82 mm[Hg] TOD ([facility]) Body weight 2718.4 [oz_av] 2718.4 [oz_av] ATHEN A ([facility]) Systolic blood pressure 149 mm[Hg] 149 mm[Hg] A [facility] ([facility]) Body height 61 [in_i] 61 [in_i] TOD ([facility]) Diastolic blood pressure 82 mm[Hg] 82 mm[Hg] TOD ([facility]) Body weight 2718.4 [oz_av] 2718.4 [oz_av] ATHEN A ([facility]) Systolic blood pressure 149 mm[Hg] 149 mm[Hg] [facility] Body height 61 [in_i] 61 [in_i] TOD ([facility]) Diastolic blood pressure 82 mm[Hg] 82 mm[Hg] TOD ([facility]) Body weight 2718.4 [oz_av] 2718.4 [oz_av] ATHEN A ([facility]) Systolic blood pressure 149 mm[Hg] 149 mm[Hg] [facility] Body weight 2739.2 [oz_av] 2739.2 [oz_av] ATHEN A ([facility]) Systolic blood pressure 145 mm[Hg] 145 mm[Hg] A [facility] ([facility]) Body mass index (BMI) [Ratio] 32.46 kg/m2 32.46 kg/m2 TOD ([facility]) Body height 61 [in_i] 61 [in_i] TOD ([facility]) Diastolic blood pressure 87 mm[Hg] 87 mm[Hg] TOD ([facility]) Body weight 2739.2 [oz_av] 2739.2 [oz_av] ATHEN A ([facility]) Systolic blood pressure 145 mm[Hg] 145 mm[Hg] [facility] Body mass index (BMI) [Ratio] 32.46 kg/m2 32.46 kg/m2 TOD ([facility]) Body height 61 [in_i] 61 [in_i] TOD ([facility]) Diastolic blood pressure 87 mm[Hg] 87 mm[Hg] TOD ([facility]) Body weight 2739.2 [oz_av] 2739.2 [oz_av] ATHEN A ([facility]) Systolic blood pressure 145 mm[Hg] 145 mm[Hg] A [facility] ([facility]) Body height 61 [in_i] 61 [in_i] TOD ([facility]) Diastolic blood pressure 87 mm[Hg] 87 mm[Hg] TOD ([facility]) Body weight 2739.2 [oz_av] 2739.2 [oz_av] ATHEN A ([facility]) Systolic blood pressure 145 mm[Hg] 145 mm[Hg] A [facility] ([facility]) Body height 61 [in_i] 61 [in_i] TOD ([facility]) Diastolic blood pressure 87 mm[Hg] 87 mm[Hg] TOD ([facility]) Body weight 2739.2 [oz_av] 2739.2 [oz_av] ATHEN A ([facility]) Systolic blood pressure 145 mm[Hg] 145 mm[Hg] [facility] Body height 61 [in_i] 61 [in_i] TOD ([facility]) Diastolic blood pressure 87 mm[Hg] 87 mm[Hg] TOD ([facility]) Body weight 2739.2 [oz_av] 2739.2 [oz_av] ATHEN A ([facility]) Systolic blood pressure 145 mm[Hg] 145 mm[Hg] [facility] Body height 61 [in_i] 61 [in_i] TOD ([facility]) Diastolic blood pressure 87 mm[Hg] 87 mm[Hg] TOD ([facility]) Body weight 2739.2 [oz_av] 2739.2 [oz_av] ATHYOSHI A ([facility]) Systolic blood pressure 145 mm[Hg] 145 mm[Hg] [facility] Body height 61 [in_i] 61 [in_i] TOD ([facility]) Diastolic blood pressure 87 mm[Hg] 87 mm[Hg] TOD ([facility]) Body weight 2739.2 [oz_av] 2739.2 [oz_av] ATHYOSHI A ([facility]) Systolic blood pressure 145 mm[Hg] 145 mm[Hg] [facility] Body height 61 [in_i] 61 [in_i] TOD ([facility]) Diastolic blood pressure 87 mm[Hg] 87 mm[Hg] TOD ([facility]) ID Date Data Source [id number] 12/02/2019 09:56:50 AM EDT [facility] Name Value Range Interpretation Code Description Data Source(s) WEIGHT RECORDED 161.16 lb 161.16 lb [facility] Body height Measured 62.99 in 62.99 in [facility] Patient Treatment Plan of Care Planned Activity Planned Date Details Description Data Source (s) Armodafinil 150 MG 01/01/2020 01:00:00 AM EDT [facility]) Lasix 20 MG 12/22/2019 01:00:00 AM EDT [facility] ([facility]) Cetirizine HCl 10 MG 12/22/2019 01:00:00 AM EDT [facility]) Ventolin HFA 108 (90 Base) MCG/ACT 12/22/2019 01:00:00 AM EDT [facility]) clonazePAM 1 MG 12/22/2019 01:00:00 AM EDT [facility] ([facility]) oxyCODONE HCl 5 MG 12/22/2019 01:00:00 AM EDT [facility] ([facility]) SEROquel 25 MG 12/22/2019 01:00:00 AM EDT [facility] ([facility]) Multi Adult Gummies 12/22/2019 01:00:00 AM EDT [facility] ([facility]) TraMADol HCl 50 MG 12/22/2019 01:00:00 AM EDT [facility] ([facility]) Metoprolol Tartrate 25 MG 12/22/2019 01:00:00 AM EDT [facility] ([facility]) Basaglar KwikPen 100 UNIT/ML 12/22/2019 01:00:00 AM EDT [facility] ([facility]) CarBAMazepine 100 MG/5ML 12/22/2019 01:00:00 AM EDT [facility] ([facility]) Lidoderm 5 % 12/22/2019 01:00:00 AM EDT N [facility] ([facility]) Modafinil 100 MG 12/22/2019 01:00:00 AM EDT [facility] ([facility]) Pepcid 20 MG 12/22/2019 01:00:00 AM EDT N [facility] ([facility]) Ipratropium-Albuterol 0.5-2.5 (3) MG/3ML 12/22/2019 01:00:00 AM EDT [facility] ([facility]) pantoprazole 2 mg/mL PO oral suspension 12/01/2019 12:00:[address] [facility] sennosides, [facility] 35.2 MG/ML Oral Solution 12/01/2019 12:00:[address] [facility] Metoprolol Tartrate 25 MG Oral Tablet 12/01/2019 12:00:[address] [facility] Insulin Glargine 100 UNT/ML Injectable Solution 12/01/2019 12:00:[address] [facility] Carbamazepine 20 MG/ML Oral Suspension 12/01/2019 12:00:[address] [facility] quetiapine 25 MG Oral Tablet 12/01/2019 12:00:[address] [facility] Oxycodone Hydrochloride 5 MG Oral Tablet 12/01/2019 12:00:[address] [facility] modafinil 100 MG Oral Tablet 12/01/2019 12:00:[address] [facility] Lidocaine 5 % External Patch (LIDODERM) 12/01/2019 12:00:[address] [facility] insulin lispro 100 units/mL SC injection LOW DOSE EATI NG INSULIN patients 12/01/2019 12:00:00 AM [facility] Tetrahydrocannabinol 5 MG Oral Capsule 12/01/2019 12:00:[address] [facility] COLLAGENASE 0.25 UNT/MG Topical Ointment 12/01/2019 12:00:[address] [facility] Glucose 0.4 MG/MG Oral Gel 11/19/2019 01:00:[address] [facility] Hydralazine Hydrochloride 20 MG/ML Injectable Solution 11/18/2019 12:43:43 AM [facility] fentaNYL (SUBLIMAZE) 100 MCG/2ML (PF) injection 11/08/2019 10:32:[address] [facility] Bisacodyl 10 MG Rectal Suppository 11/08/2019 09:52:[address] [facility] Glucagon 1 MG Injection 11/05/2019 08:37:[address] [facility] fentaNYL (SUBLIMAZE) 50 mcg/mL NCA 11/04/2019 07:30:[address] [facility] 3 ML Insulin Lispro 100 UNT/ML Pen Injector [Humalog] 10/30/2017 12:00:00 AM [facility] Blood Glucose Monitoring Suppl (ONETOUCH VERIO) w/Sharon ce KIT 10/29/2017 12:00:00 AM [facility] Insulin Pen Needle (B-D ULTRAFINE III SHORT PEN) 31G X 8 MM MISC 10/29/2017 12:00:00 AM [facility] 3 ML Insulin Glargine 100 UNT/ML Pen Injector 10/29/2017 12:00:[address] [facility] Famotidine 20 MG Oral Tablet [facility] ([facility]) d3 high potency 125 mcg (5000 ut) caps [facility] ([facility]) cetirizine hydrochloride 10 MG Oral Tablet [facility] ([facility]) Cefuroxime 500 MG Oral Tablet TOD ([facility]) Azithromycin 250 MG Oral Tablet [facility] ([facility]) COLLAGENASE 0.25 UNT/MG Topical Ointment [Santyl] TOD ([facility]) pantoprazole 40 MG Delayed Release Oral Tablet [facility] ([facility]) Omeprazole 20 MG Delayed Release Oral Capsule TOD ([facility]) Loratadine 10 MG Oral Tablet [facility] ([facility]) Famotidine 20 MG Oral Tablet TOD ([facility]) d3 high potency 125 mcg (5000 ut) caps TOD ([facility]) cetirizine hydrochloride 10 MG Oral Tablet TOD ([facility]) Cefuroxime 500 MG Oral Tablet TOD ([facility]) Azithromycin 250 MG Oral Tablet TOD ([facility]) COLLAGENASE 0.25 UNT/MG Topical Ointment [Santyl] TOD ([facility]) pantoprazole 40 MG Delayed Release Oral Tablet TOD ([facility]) Omeprazole 20 MG Delayed Release Oral Capsule TOD ([facility]) Loratadine 10 MG Oral Tablet TOD ([facility]) Fluconazole 150 MG Oral Tablet [facility] ([facility]) Famotidine 20 MG Oral Tablet TOD ([facility]) d3 high potency 125 mcg (5000 ut) caps TOD ([facility]) cetirizine hydrochloride 10 MG Oral Tablet TOD ([facility]) Cefuroxime 500 MG Oral Tablet TOD ([facility]) Azithromycin 250 MG Oral Tablet TOD ([facility]) COLLAGENASE 0.25 UNT/MG Topical Ointment [Santyl] TOD ([facility]) pantoprazole 40 MG Delayed Release Oral Tablet TOD ([facility]) Omeprazole 20 MG Delayed Release Oral Capsule TOD ([facility]) Loratadine 10 MG Oral Tablet TOD ([facility]) Fluconazole 150 MG Oral Tablet TOD ([facility]) Famotidine 20 MG Oral Tablet TOD ([facility]) d3 high potency 125 mcg (5000 ut) caps TOD ([facility]) cetirizine hydrochloride 10 MG Oral Tablet TOD ([facility]) Cefuroxime 500 MG Oral Tablet TOD ([facility]) Azithromycin 250 MG Oral Tablet TOD ([facility]) COLLAGENASE 0.25 UNT/MG Topical Ointment [Santyl] TOD ([facility]) pantoprazole 40 MG Delayed Release Oral Tablet TOD ([facility]) Omeprazole 20 MG Delayed Release Oral Capsule TOD ([facility]) Loratadine 10 MG Oral Tablet TOD ([facility]) Fluconazole 150 MG Oral Tablet TOD ([facility]) Famotidine 20 MG Oral Tablet TOD ([facility]) d3 high potency 125 mcg (5000 ut) caps TOD ([facility]) cetirizine hydrochloride 10 MG Oral Tablet TOD ([facility]) Cefuroxime 500 MG Oral Tablet TOD ([facility]) Azithromycin 250 MG Oral Tablet TOD ([facility]) Loratadine 10 MG Oral Tablet TOD ([facility]) Fluconazole 150 MG Oral Tablet TOD ([facility]) Famotidine 20 MG Oral Tablet TOD ([facility]) d3 high potency 125 mcg (5000 ut) caps TOD ([facility]) cetirizine hydrochloride 10 MG Oral Tablet TOD ([facility]) Cefuroxime 500 MG Oral Tablet TOD ([facility]) Azithromycin 250 MG Oral Tablet TOD ([facility]) COLLAGENASE 0.25 UNT/MG Topical Ointment [Santyl] TOD ([facility]) pantoprazole 40 MG Delayed Release Oral Tablet TOD ([facility]) Omeprazole 20 MG Delayed Release Oral Capsule TOD ([facility]) Loratadine 10 MG Oral Tablet TOD ([facility]) Fluconazole 150 MG Oral Tablet TOD ([facility]) Famotidine 20 MG Oral Tablet TOD ([facility]) d3 high potency 125 mcg (5000 ut) caps TOD ([facility]) cetirizine hydrochloride 10 MG Oral Tablet TOD ([facility]) Cefuroxime 500 MG Oral Tablet TOD ([facility]) Azithromycin 250 MG Oral Tablet TOD ([facility]) COLLAGENASE 0.25 UNT/MG Topical Ointment [Santyl] TOD ([facility]) pantoprazole 40 MG Delayed Release Oral Tablet TOD ([facility]) Omeprazole 20 MG Delayed Release Oral Capsule TOD ([facility]) Loratadine 10 MG Oral Tablet TOD ([facility]) Fluconazole 150 MG Oral Tablet TOD ([facility]) Famotidine 20 MG Oral Tablet TOD ([facility]) d3 high potency 125 mcg (5000 ut) caps TOD ([facility]) cetirizine hydrochloride 10 MG Oral Tablet TOD ([facility]) Cefuroxime 500 MG Oral Tablet TOD ([facility]) Azithromycin 250 MG Oral Tablet TOD ([facility]) COLLAGENASE 0.25 UNT/MG Topical Ointment [Santyl] TOD ([facility]) pantoprazole 40 MG Delayed Release Oral Tablet TOD ([facility]) Omeprazole 20 MG Delayed Release Oral Capsule TOD ([facility]) Loratadine 10 MG Oral Tablet TOD ([facility]) COLLAGENASE 0.25 UNT/MG Topical Ointment [Santyl] TOD ([facility]) pantoprazole 40 MG Delayed Release Oral Tablet TOD ([facility]) Omeprazole 20 MG Delayed Release Oral Capsule TOD ([facility]) Naproxen sodium 220 MG Oral Capsule [facility] Albuterol 0.833 MG/ML / Ipratropium [place] 0.167 MG/ML Inhalant So lution [facility] albuterol (PROVENTIL HFA;VENTOLIN HFA) 108 (90 BASE) MCG/ACT inhale r [facility] Famotidine 20 MG Oral Tablet [facility]
[2020-08-06 21:08] LABS: BASO # 0.1 10^3/uL (0.0-0.2); BASO % 0.6 % (0.0-1.0); EOS # 0.1 10^3/uL (0.0-0.5); EOS % 0.9 % (0.0-3.0); HEMATOCRIT 30.8 % (36.0-47.0); LYMPH # 2.3 10^3/uL (1.5-5.0); LYMPH % 28.5 % (24.0-44.0); MEAN CORPUSCULAR HEMOGLOBIN 29.4 pg (27.0-33.0); MEAN CORPUSCULAR HGB CONC 32.5 g/dl (32.0-36.5); MEAN CORPUSCULAR VOLUME 90.6 fl (80.0-96.0); MONO # 0.6 10^3/uL (0.0-0.8); MONO % 7.1 % (2.0-8.0); NEUTROPHILS % 62.5 % (36.0-66.0); PLATELET COUNT, AUTOMATED 271 10^3/uL (150-450); WHITE BLOOD COUNT 8.1 10^3/uL (4.0-10.0)
[2020-08-06 21:33] LABS: ALBUMIN 3.4 GM/DL (3.2-5.2); BILIRUBIN,DIRECT 0.1 MG/DL (0.0-0.2); BILIRUBIN,TOTAL 0.3 MG/DL (0.2-1.0); CALCIUM LEVEL 9.1 MG/DL (8.5-10.1); CREATININE FOR GFR 1.81 MG/DL (0.55-1.30); TOTAL PROTEIN 6.6 GM/DL (6.4-8.2)
[2020-08-06 21:40] VITALS: BP 147/74
--- NOTE | 2020-08-06 21:44 | REPVR ---
PROCEDURE INFORMATION: Exam: XR Chest Exam date and time: 08/06/2020 9:28 PM Age: 55 years old Clinical indication: Other: Dyspnea/cough TECHNIQUE: Imaging protocol: XR of the chest Views: 1 view. COMPARISON: ID Chest, 1 view 11/04/2019 5:28 PM FINDINGS: Lungs: There is patchy infiltrate at the right and left costophrenic angles. There is also some prominence of the vascular markings bilaterally. Patchy and streaky pneumonic infiltrate is present in the lung bases. There are small nodular densities of both lung bases which may be nipple shadow. Recommend films with nipple markers or CT scan for further evaluation of this. Pleural spaces: There is no evidence of pneumothorax. Heart/Mediastinum: There is some prominence of the left side of the heart. Bones/joints: There is no evidence of bony abnormality. IMPRESSION: 1. Small nodular densities at both lung bases probably nipple shadow. However, Recommend films with nipple markers or CT scan for clarification. 2. Patchy pneumonic infiltrate in both the right and left costophrenic angle with a small amount of pleural fluid. 3. Mild prominence of the vascular markings may be mild increased volume or congestive changes. Electronically signed by: Jesus Wayne On 08/06/2020 21:44:38 PM
--- NOTE | 2020-08-08 07:10 | ED PDOC ---
Post-Departure Follow-Up radiology report reviewed - given to chart nurse to inform patient of results an d to return for re-eval as pateint Peyton Lopez MD Aug 08, 2020 07:10
== END 2020-08-06 21:42 | disposition left against medical advice (07) ==
LOC: M ED 18:46
DX: R06.02 Shortness of breath (principal); Z53.21 Procedure and treatment not carried out due to patient leaving prior to being seen by health care provider; Z79.899 Other long term (current) drug therapy; Z88.8 Allergy status to other drugs, medicaments and biological substances

== ENCOUNTER 2020-08-17 20:04 | Emergency (ER) | payer OTHER, MEDICAID ==
[~2020-08-17] VITALS: Ht 154.9 cm; Wt 83.3 kg
[2020-08-17 20:52] LABS: HEMATOCRIT 31.9 % (36.0-47.0); MEAN CORPUSCULAR HEMOGLOBIN 28.8 pg (27.0-33.0); MEAN CORPUSCULAR HGB CONC 31.3 g/dl (32.0-36.5); MEAN CORPUSCULAR VOLUME 91.9 fl (80.0-96.0); PLATELET COUNT, AUTOMATED 282 10^3/uL (150-450); RED BLOOD COUNT 3.47 10^6/uL (4.00-5.40); WHITE BLOOD COUNT 6.8 10^3/uL (4.0-10.0)
[2020-08-17 21:02] LABS: INR 0.97; PROTHROMBIN TIME 13.1 SECONDS (12.5-14.3)
[2020-08-17 21:08] LABS: ATYPICAL LYMPH 3 % (0-5); BASOPHILS 1 % (0-1); EOSINOPHILS 2 % (0-3); LYMPHOCYTES 45 % (16-44); MONOCYTES 5 % (0-5); NEUTROPHILS 44 % (28-66); PLATELET ESTIMATE NORMAL (NORMAL)
[2020-08-17 21:22] LABS: ALBUMIN 3.3 GM/DL (3.2-5.2); ALT/SGPT 28 U/L (12-78); BILIRUBIN,DIRECT 0.1 MG/DL (0.0-0.2); BILIRUBIN,TOTAL 0.4 MG/DL (0.2-1.0); CK-MB VALUE MASS 4.5 NG/ML (<3.6); CPK CREATINE PHOSPHOKINASE 389 U/L (26-192); LIPASE 38 U/L (73-393); MB/CK RELATIVE INDEX 1.16 (< OR =4); NT-PRO BNP 7346 PG/ML (<125); POTASSIUM SERUM 5.3 MEQ/L (3.5-5.1); TOTAL PROTEIN 6.4 GM/DL (6.4-8.2); TROPONIN I < 0.02 NG/ML (< 0.10)
--- NOTE | 2020-08-17 22:14 | REPVR ---
PROCEDURE INFORMATION: Exam: XR Chest Exam date and time: 08/17/20 (8:50pm) Age: 55 years old Clinical indication: Chest pain TECHNIQUE: Imaging protocol: Portable CXR Views: 1 view COMPARISON: Portable CXR of 08/06/20 FINDINGS: Lungs: Unremarkable. No consolidation. Pleural spaces: Unremarkable. No pleural effusions. No pneumothorax. Heart/Mediastinum: Unremarkable. No cardiomegaly. Bones/joints: Unremarkable. IMPRESSION: No acute findings. Clear lung howard. Electronically signed by: Yvonne Mahmood On 08/17/2020 22:14:37 PM
[2020-08-17 23:47] VITALS: BP 152/80
--- NOTE | 2020-08-18 00:38 | ECGEPIP ---
[facility] - ED Test Date: 2020-08-17 Pat Name: CLARISA LLANES Department: Room: - Gender: Female Medicare Interviewer: JIGNA : 1965 Requested By: AIME BRADY Order Number: [id number] Reading MD: Yoseph Su Measurements Intervals Wade Rate: 64 P: 70 WY: 186 QRS: -45 QRSD: 134 T: 68 QT: 438 QTc: 451 Interpretive Statements Normal sinus rhythm Left axis deviation Nonspecific intraventricular block, new compared to 09/09/15 Minimal voltage criteria for LVH, may be normal variant Electronically Signed on 08-18-2020 0:37:38 EST by Yoseph Su
== END 2020-08-17 23:57 | disposition left against medical advice (07) ==
LOC: M ED 20:04
DX: Z53.9 Procedure and treatment not carried out, unspecified reason (principal); N17.9 Acute kidney failure, unspecified; R79.0 Abnormal level of blood mineral; E87.5 Hyperkalemia; E11.9 Type 2 diabetes mellitus without complications; I10 Essential (primary) hypertension; J45.909 Unspecified asthma, uncomplicated; K21.9 Gastro-esophageal reflux disease without esophagitis; Z86.73 Personal history of transient ischemic attack (TIA), and cerebral infarction without residual deficits; Z79.4 Long term (current) use of insulin; Z79.899 Other long term (current) drug therapy; Z88.8 Allergy status to other drugs, medicaments and biological substances

== ENCOUNTER → 2020-08-17 | Outpatient (REF) | payer OTHER, MEDICAID ==
[2020-08-17 16:59] LABS: BASO # 0.1 10^3/uL (0.0-0.2); BASO % 1.2 % (0.0-1.0); EOS # 0.2 10^3/uL (0.0-0.5); EOS % 2.9 % (0.0-3.0); HEMATOCRIT 31.7 % (36.0-47.0); HEMOGLOBIN 10.1 g/dl (12.0-15.5); LYMPH # 2.3 10^3/uL (1.5-5.0); LYMPH % 40.6 % (24.0-44.0); MEAN CORPUSCULAR HEMOGLOBIN 29.5 pg (27.0-33.0); MEAN CORPUSCULAR HGB CONC 31.9 g/dl (32.0-36.5); MEAN CORPUSCULAR VOLUME 92.7 fl (80.0-96.0); MONO # 0.4 10^3/uL (0.0-0.8); MONO % 7.1 % (2.0-8.0); NEUTROPHILS # 2.8 10^3/uL (1.5-8.5); NEUTROPHILS % 47.9 % (36.0-66.0); PLATELET COUNT, AUTOMATED 293 10^3/uL (150-450); RED BLOOD COUNT 3.42 10^6/uL (4.00-5.40); WHITE BLOOD COUNT 5.8 10^3/uL (4.0-10.0)
[2020-08-17 18:28] LABS: ALBUMIN 3.5 GM/DL (3.2-5.2); ALT/SGPT 27 U/L (12-78); BILIRUBIN,DIRECT < 0.1 MG/DL (0.0-0.2); BILIRUBIN,TOTAL 0.4 MG/DL (0.2-1.0); BLOOD UREA NITROGEN 38 MG/DL (7-18); CALCIUM LEVEL 8.5 MG/DL (8.5-10.1); CARBON DIOXIDE LEVEL 22 MEQ/L (21-32); CHLORIDE LEVEL 110 MEQ/L (98-107); CHOLESTEROL LEVEL 137 MG/DL (<200); CHOLESTEROL RISK RATIO 3.605 (<5); CREATININE FOR GFR 2.11 MG/DL (0.55-1.30); FERRITIN 69 NG/ML (8-252); GLUCOSE, FASTING 203 MG/DL (70-100); HDL CHOLESTEROL 38 MG/DL (>40); IRON (FE) 39 UG/DL (50-170); LDL CHOLESTEROL 60 MG/DL (<100); NON-HDL-C 99 MG/DL; NT-PRO BNP 7128 PG/ML (<125); PERCENT SATURATION 12.7 % (13.2-45.0); POTASSIUM SERUM 6.1 MEQ/L (3.5-5.1); SODIUM LEVEL 137 MEQ/L (136-145); TOTAL IRON BINDING CAPACITY 306 UG/DL (250-450); TOTAL PROTEIN 6.1 GM/DL (6.4-8.2); TRIGLYCERIDES LEVEL 197 MG/DL (<150)
[2020-08-17 18:43] LABS: ERYTHROCYTE SEDIMENTATION RATE 43 mm/hr (0-30)
[2020-08-17 18:57] LABS: HEMOGLOBIN A1c 7.8 %
== END ==
LOC: M LAB REF 15:57
PROVIDERS: ATTEND Physician Assistant
DX: R89.9 Unspecified abnormal finding in specimens from other organs, systems and tissues (principal)

== ENCOUNTER → 2020-08-20 | Outpatient (REF) | payer OTHER, MEDICAID ==
[2020-08-20 12:33] LABS: BASO # 0.1 10^3/uL (0.0-0.2); BASO % 1.2 % (0.0-1.0); EOS # 0.1 10^3/uL (0.0-0.5); EOS % 2.3 % (0.0-3.0); HEMATOCRIT 32.7 % (36.0-47.0); HEMOGLOBIN 10.5 g/dl (12.0-15.5); LYMPH # 3.2 10^3/uL (1.5-5.0); LYMPH % 52.4 % (24.0-44.0); MEAN CORPUSCULAR HEMOGLOBIN 29.4 pg (27.0-33.0); MEAN CORPUSCULAR HGB CONC 32.1 g/dl (32.0-36.5); MEAN CORPUSCULAR VOLUME 91.6 fl (80.0-96.0); MONO # 0.4 10^3/uL (0.0-0.8); MONO % 7.1 % (2.0-8.0); NEUTROPHILS # 2.2 10^3/uL (1.5-8.5); NEUTROPHILS % 36.8 % (36.0-66.0); PLATELET COUNT, AUTOMATED 287 10^3/uL (150-450); RED BLOOD COUNT 3.57 10^6/uL (4.00-5.40)
[2020-08-20 13:04] LABS: ALBUMIN 3.6 GM/DL (3.2-5.2); BILIRUBIN,TOTAL 0.2 MG/DL (0.2-1.0); CALCIUM LEVEL 8.7 MG/DL (8.5-10.1); CREATININE FOR GFR 1.6 MG/DL (0.55-1.30); GLOMERULAR FILTRATION RATE 35.8 (>51); TOTAL PROTEIN 6.4 GM/DL (6.4-8.2)
[2020-08-20 13:27] LABS: PERCENT SATURATION 13.9 % (13.2-45.0)
== END ==
LOC: M LAB REF 11:57
PROVIDERS: ATTEND Physician Assistant
DX: I50.9 Heart failure, unspecified (principal); D64.9 Anemia, unspecified

== ENCOUNTER → 2020-09-16 | Outpatient (CLI) | payer OTHER ==
[~2020-09-16] MED LIST changes: +ALBU83IN INH; +ALLO100T PO; +ARMO150T PO; +ATOR1TAB19 PO; +BASA100I; +CARB1SUS; +FAMO40TA3 PO; +LEVOTAB10 PO; +METO1TAB87 PO; +PROAAER10 INH; +QUET25TA3 PO; +SING5CHW23 PO; +TRAM50TA2 PO; +VITA50005 PO
--- NOTE | 2020-09-16 15:35 | REP ---
INDICATION: CKD STAGE 3B. COMPARISON: None. TECHNIQUE: Renal ultrasound. FINDINGS: The right kidney measures 10.3 x 8 4.7 x 4.1 cm. The left kidney measures 9.7 x 5.4 x 4.8 cm. The kidneys are in the low normal size range. Renal cortical echogenicity is normal bilaterally. There is no hydronephrosis on the right or the left. There are no renal calculi. There are no renal solid or cystic masses. Bladder: The few traveling sales representative image of the bladder are present. No bladder wall nodules or masses are identified. IMPRESSION: Essentially negative renal ultrasound. The kidneys are in the low normal size range. <Electronically signed by Lionel Mojica > 09/16/20 [id number]
== END ==
LOC: M RAD 12:27
PROVIDERS: ATTEND Internal Medicine Nephrology
DX: N18.32 Chronic kidney disease, stage 3b (principal); E11.22 Type 2 diabetes mellitus with diabetic chronic kidney disease; I50.9 Heart failure, unspecified

== ENCOUNTER → 2020-09-17 | Outpatient (CLI) | payer OTHER, MEDICAID ==
[~2020-09-17] MED LIST changes: +FAMO40TA3; -FAMO40TA3 PO; +METO1TAB87; -METO1TAB87 PO; -PROAAER10 INH; +QUET25TA3; -QUET25TA3 PO; +TRAM50TA2; -TRAM50TA2 PO
== END ==
LOC: M LABSMTC 11:49
PROVIDERS: ATTEND Anesthesiology
DX: Z01.812 Encounter for preprocedural laboratory examination (principal); Z20.828 Contact with and (suspected) exposure to other viral communicable diseases

== ENCOUNTER 2020-09-22 08:33 | Day surgery (SDC) | payer OTHER ==
[~2020-09-22] VITALS: Ht 154.9 cm; Wt 84.3 kg
[~2020-09-22 08:33] MED LIST changes: -FAMO40TA3; +FAMO40TA3 PO; +LR 1,000 ML IV ONE; -METO1TAB87; +METO1TAB87 PO; -QUET25TA3; +QUET25TA3 PO; -TRAM50TA2; +TRAM50TA2 PO; +ceFAZolin SOD 2 GM in IV 1 EA IV ONE
[2020-09-22] MEDS ORDERED: PROAAER10 INH (08:56)
[2020-09-22] MEDS ORDERED: ONDANSETRON 4MG/2ML VIAL As Ordered ONE (10:18)
[2020-09-22] MEDS ORDERED: LIDOCAINE 2% 100MG/5ML SDV (FOR ANES.) As Ordered ONE (10:18)
[2020-09-22] MEDS ORDERED: dexameTHASONE 4 MG/ML 1ML VIAL (J1100 PER 1MG) As Ordered ONE (10:18)
[2020-09-22] MEDS ORDERED: KETOROLAC 60MG 2ML VIAL As Ordered ONE (10:18)
[2020-09-22] MEDS ORDERED: ACETAMINOPHEN 1000MG 100ML IV BTL (OFIRMEV) (J0131 PER 10MG) As Ordered ONE (10:19)
[2020-09-22] MEDS ORDERED: fentaNYL 100 MCG/2 ML INJECTION (J3010) As Ordered ONE (10:19)
[2020-09-22] MEDS ORDERED: MIDAZOLAM INJ 2MG/2ML VIAL (J2250 PER 1MG) As Ordered ONE (10:19)
[2020-09-22] MEDS ORDERED: propofoL 500 MG/50 ML VIAL As Ordered ONE (10:19)
[2020-09-22] MEDS ORDERED: BUPIVACAINE HCL 0.5% 10ML VIAL As Ordered ONE (10:40)
[2020-09-22] MEDS ORDERED: LIDOCAINE 1% MDV 20ML VIAL As Ordered ONE (10:40)
[2020-09-22 11:45] VITALS: BP 163/72
--- NOTE | 2020-09-22 13:54 | RO ---
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 POSTOPERATIVE DIAGNOSIS: Left 2nd toe osteomyelitis. PROCEDURE: Left 2nd toe amputation. SURGEON: Kiran Yang DPM PRISONER CLASSIFICATION INTERVIEWER: None. ANESTHESIA: Monitored anesthesia care, preop injection of 6 mL of 1:1 mixture of 1% Lidocaine plain and 0.5% Marcaine plain. ESTIMATED BLOOD LOSS: Minimal. MATERIALS: 3-0 nylon. INJECTABLES: None. SPECIMEN: Left 2nd toe. INDICATIONS: Rama Moreira is a 55-year-old female who has an ulceration on her left 2nd toe. There was exposed bone. She presents today for amputation. The patient side and site were identified and marked in preoperative holding area. Consent was reviewed and obtained. All risks, complications and alternatives to the procedure were explained to the patient in detail and all questions were answered. DESCRIPTION OF PROCEDURE: The patient was brought to the operating room and placed on the operating room table in supine position. Monitored anesthesia care was delivered by the anesthesia team. Preop injection of 6 mL of 1:1 mixture of 1% Lidocaine plain and 0.5% Marcaine plain was injected in the left foot. The left foot was prepped and draped in normal sterile fashion. No tourniquet was used during the procedure. Wound was inspected. There was necrotic bone protruding from the ulcer at the dorsal aspect of the proximal interphalangeal joint. Using #15 blade the toe was disarticulated at the metatarsophalangeal joint. Site was irrigated with normal saline. The incision was repaired with 3-0 nylon. Sterile dressings were applied. The patient was brought to PACU with vital signs stable and neurovascular status intact. She will be weightbearing as tolerated. She will follow up in office in two days.
== END 2020-09-22 11:51 | disposition home or self-care (01) ==
LOC: M SDC 08:33
PROVIDERS: ATTEND Podiatrist Foot & Ankle Surgery
DX: M86.172 Other acute osteomyelitis, left ankle and foot (principal); E11.621 Type 2 diabetes mellitus with foot ulcer; L97.524 Non-pressure chronic ulcer of other part of left foot with necrosis of bone; Z79.4 Long term (current) use of insulin; Z86.73 Personal history of transient ischemic attack (TIA), and cerebral infarction without residual deficits; I10 Essential (primary) hypertension; J44.9 Chronic obstructive pulmonary disease, unspecified; Z79.51 Long term (current) use of inhaled steroids; Z79.899 Other long term (current) drug therapy; G47.33 Obstructive sleep apnea (adult) (pediatric); K21.9 Gastro-esophageal reflux disease without esophagitis
CPT/HCPCS: 28820; 88305; J0131; J0690; J1100; J1885; J2250; J2405; J3010

== ENCOUNTER → 2020-10-19 | Outpatient (REF) | payer OTHER ==
[~2020-10-19] MED LIST changes: -LR 1,000 ML IV ONE; +PROAAER10 INH; -ceFAZolin SOD 2 GM in IV 1 EA IV ONE
[2020-10-19 18:30] LABS: PERCENT SATURATION 8.1 % (13.2-45.0)
[2020-10-19 18:35] LABS: FOLATE 11.9 NG/ML
== END ==
LOC: M LAB REF 16:58
PROVIDERS: ATTEND Internal Medicine Nephrology
DX: D64.9 Anemia, unspecified (principal)

== ENCOUNTER 2020-11-19 09:19 | Outpatient (CLI) | payer OTHER ==
[~2020-11-19] VITALS: Ht 154.9 cm; Wt 85.7 kg
[~2020-11-19 09:19] MED LIST changes: +ALBUTEROL SULFATE 2.5 MG/0.5 ML INH NEB SOLN INH PRN; +EPINEPHrine INJ 1 MG/ML 1ML AMP IM PRN; +FERRIC CARBOXYMALTOSE INJ 750 MG, VIAL MATE ADAPTER 1 EACH in NS 250 ML IV ONE; +NS 1,000 ML IV SCH; +diphenhydrAMINE 50MG/ML VIAL (J1200) IV ONE; +diphenhydrAMINE 50MG/ML VIAL (J1200) IV PRN; +methylPREDNISolone 125MG 2ML VIAL IV PRN
[2020-11-19 09:44] VITALS: BP 150/82
[2020-11-19 12:00] VITALS: BP 167/74
== END 2020-11-19 12:00 | disposition home or self-care (01) ==
LOC: M INFU 09:19
PROVIDERS: ATTEND Internal Medicine Nephrology
DX: D50.9 Iron deficiency anemia, unspecified (principal); Z88.8 Allergy status to other drugs, medicaments and biological substances
CPT/HCPCS: 96365; 96375; J1200; J1439

== ENCOUNTER → 2020-12-20 | Outpatient (REF) | payer OTHER ==
[~2020-12-20] MED LIST changes: -ALBUTEROL SULFATE 2.5 MG/0.5 ML INH NEB SOLN INH PRN; -EPINEPHrine INJ 1 MG/ML 1ML AMP IM PRN; +ERGO500029 PO; -FERRIC CARBOXYMALTOSE INJ 750 MG, VIAL MATE ADAPTER 1 EACH in NS 250 ML IV ONE; -NS 1,000 ML IV SCH; -VITA50005 PO; -diphenhydrAMINE 50MG/ML VIAL (J1200) IV ONE; -diphenhydrAMINE 50MG/ML VIAL (J1200) IV PRN; -methylPREDNISolone 125MG 2ML VIAL IV PRN
== END ==
LOC: M LAB REF 17:17
PROVIDERS: ATTEND Internal Medicine Nephrology
DX: E87.5 Hyperkalemia (principal)

== ENCOUNTER 2021-01-04 14:00 | Emergency (ER) | payer OTHER ==
[~2021-01-04] VITALS: Ht 154.9 cm; Wt 82.2 kg
--- NOTE | 2021-01-04 14:52 | REP ---
INDICATION: dizzy/ hx of stroke. COMPARISON: Comparison CT study of the brain is from June 06, 2018.. TECHNIQUE: Helical scanning is acquired. 5 mm axial images were reformatted. Coronal MPR images were generated. FINDINGS: Bone window settings demonstrate an intact bony calvarium. There is no evidence of skull fracture or incidental bony calvarial lesion. The visualized paranasal sinuses appear clear. No intraorbital abnormality is seen. On soft tissue window setting images; the lateral, third, and fourth ventricles are normal in size and position. Garcia-white differentiation pattern is normal above and below the tentorium. There are is no evidence of intracranial hemorrhage. No mass, edema, infarction, or midline shift is seen. No extra-axial fluid collection is appreciated. Vascular calcification is observed and minimal generalized volume loss is visible as before. IMPRESSION: No acute intracranial abnormality.. <Electronically signed by Charles Lackey > 01/04/21 [id number]
[2021-01-04 15:25] VITALS: BP 142/70
== END 2021-01-04 15:50 | disposition left against medical advice (07) ==
LOC: M ED 14:00
DX: R42 Dizziness and giddiness (principal); Z53.9 Procedure and treatment not carried out, unspecified reason; E11.9 Type 2 diabetes mellitus without complications; K21.9 Gastro-esophageal reflux disease without esophagitis; J45.909 Unspecified asthma, uncomplicated; Z86.73 Personal history of transient ischemic attack (TIA), and cerebral infarction without residual deficits; Z87.820 Personal history of traumatic brain injury; Z79.3 Long term (current) use of hormonal contraceptives; Z79.899 Other long term (current) drug therapy; Z88.8 Allergy status to other drugs, medicaments and biological substances

== ENCOUNTER 2021-02-01 09:44 | Inpatient (IN) | payer OTHER ==
[~2021-02-01] VITALS: Ht 154.9 cm; Wt 79.7 kg
[~2021-02-01 09:44] MED LIST changes: -BASA100I; +BASA100I SQ; -CARB1SUS; +CARB1SUS PO; +QUET1TAB17 PO; -QUET25TA3 PO
[2021-02-01] MEDS ORDERED: LINE1TAB6 PO (10:08)
[2021-02-01] MEDS ORDERED: HYDR12CA PO (10:08)
[2021-02-01] MEDS ORDERED: FERR32TA PO (10:08)
--- NOTE | 2021-02-01 13:17 | REP ---
INDICATION: left foot infection; r/o air/osteo. COMPARISON: None. TECHNIQUE: Only two views were obtained. FINDINGS: There is been previous amputation of the 2nd digit. Abnormal air density is seen in the soft tissues of the 5th digit. There is evidence of rarefied bone involving the head of the 5th metatarsal and possibly the head of the 4th metatarsal but difficult to evaluate on this limited two view exam. IMPRESSION: Findings involving the head of the 5th metatarsal and 5th digit soft tissues as described above consistent with infectious etiology. Rarefied bone is seen an acute osteomyelitis when a substantial amount of bone is affected. Pre and post gadolinium enhanced MRI is recommended for further evaluation and disease extension. <Electronically signed by Cristobal Mendosa > 02/01/21 [id number]
[2021-02-01 13:30] LABS: BASO # 0.1 10^3/uL (0.0-0.2); BASO % 0.4 % (0.0-1.0); EOS # 0.1 10^3/uL (0.0-0.5); EOS % 0.6 % (0.0-3.0); HEMATOCRIT 35.9 % (36.0-47.0); HEMOGLOBIN 12.1 g/dl (12.0-15.5); LYMPH # 2.1 10^3/uL (1.5-5.0); LYMPH % 15.7 % (24.0-44.0); MEAN CORPUSCULAR HEMOGLOBIN 28.7 pg (27.0-33.0); MEAN CORPUSCULAR HGB CONC 33.7 g/dl (32.0-36.5); MEAN CORPUSCULAR VOLUME 85.1 fl (80.0-96.0); MONO # 0.9 10^3/uL (0.0-0.8); MONO % 6.8 % (2.0-8.0); NEUTROPHILS # 9.9 10^3/uL (1.5-8.5); NEUTROPHILS % 75.4 % (36.0-66.0); PLATELET COUNT, AUTOMATED 292 10^3/uL (150-450); RED BLOOD COUNT 4.22 10^6/uL (4.00-5.40); WHITE BLOOD COUNT 13.2 10^3/uL (4.0-10.0)
[2021-02-01 13:58] LABS: ALBUMIN 2.5 GM/DL (3.2-5.2); BILIRUBIN,DIRECT 0.2 MG/DL (0.0-0.2); BILIRUBIN,TOTAL 0.5 MG/DL (0.2-1.0); C REACTIVE PROTEIN QUANTITATIV 18.2 MG/DL (0.00-0.30); CREATININE FOR GFR 2.1 MG/DL (0.55-1.30); GLOMERULAR FILTRATION RATE 26.1 (>51); POTASSIUM SERUM 4.8 MEQ/L (3.5-5.1); TOTAL PROTEIN 6.4 GM/DL (6.4-8.2)
[2021-02-01] MEDS ORDERED: VANCOMYCIN HCL 1,500 MG in NS 250 ML IV ONE (14:00)
[2021-02-01 14:10] LABS: ERYTHROCYTE SEDIMENTATION RATE 73 mm/hr (0-30)
[2021-02-01] MEDS ORDERED: VANCOMYCIN HCL 750 MG, VIAL MATE ADAPTER 1 EACH in NS 250 ML IV ONE ×6 (14:10)
[2021-02-01] MEDS ORDERED: MONT10TA10 PO (14:22)
[2021-02-01] MEDS ORDERED: HOME MED LIST COMPLETE! XX SCH (14:25)
[2021-02-01] MEDS ORDERED: NS 1,000 ML IV SCH (15:30)
[2021-02-01] MEDS ORDERED: ALBUTEROL SULFATE 2.5 MG/0.5 ML INH NEB SOLN INH PRN (16:30)
[2021-02-01] MEDS ORDERED: traMADol 50 MG TAB PO PRN (16:30)
[2021-02-01 17:30] LABS: RSV AMPLIFICATION NEGATIVE (NEGATIVE)
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
[2021-02-01 19:24] LABS: CALCIUM LEVEL 8.7 MG/DL (8.5-10.1); CREATININE FOR GFR 1.84 MG/DL (0.55-1.30); GLOMERULAR FILTRATION RATE 30.4 (>51); POTASSIUM SERUM 5.5 MEQ/L (3.5-5.1)
[2021-02-01 20:53] VITALS: BP 146/68
[2021-02-01] MEDS: HEPARIN SOD (PORCINE) 5000UNITS/ML 1ML VIAL/SYRINGE SQ SCH (21:21)
[2021-02-01] MEDS: FAMOTIDINE 20 MG TAB PO SCH (21:22)
[2021-02-01] MEDS: PIPERACILLIN/TAZOBACTAM SOD 3.375 GM in D5W MINI-BAG PLUS 50 ML IV SCH (21:22)
[2021-02-01] MEDS: MONTELUKAST 10 MG TAB PO SCH (21:22)
[2021-02-01 22:57] LABS: APPEARANCE, URINE CLOUDY (CLEAR); BACTERIA, URINE AUTO 3+ (NEGATIVE); BILIRUBIN, URINE AUTO NEGATIVE (NEGATIVE); BLOOD, URINE BLOOD 1+ (NEGATIVE); COLOR, URINE YELLOW (YELLOW); GLUCOSE, URINE (UA) AUTO 2+ mg/dL (NEGATIVE); KETONE, URINE AUTO NEGATIVE (NEGATIVE); LEUKOCYTE ESTERASE, URINE AUTO 1+ (NEGATIVE); NITRITE, URINE AUTO NEGATIVE (NEGATIVE); PROTEIN, URINE AUTO 1+ mg/dL (NEGATIVE); RBC, URINE AUTO 9 /HPF (0-3); SQUAMOUS EPITHELIAL CELL UR AU 9 /HPF (0-6); UROBILINOGEN, URINE AUTO 0.2 mg/dL (0.0-2.0); WBC, URINE AUTO 19 /HPF (0-3)
[2021-02-01] MEDS: VANCOMYCIN HCL 1,000 MG, VIAL MATE ADAPTER 1 EACH in NS 250 ML IV SCH (23:23)
[2021-02-01 23:31] LABS: CREATININE,RANDOM URINE 65.7 MG/DL
[2021-02-02] VITALS: BP 120/60
[2021-02-02] MEDS: carBAMazepine 100MG 5ML SUSP ORAL SYRINGE *DRAW UP EXACT DOSE PO SCH ×3 (00:11→20:29)
[2021-02-02] MEDS: PIPERACILLIN/TAZOBACTAM SOD 3.375 GM in D5W MINI-BAG PLUS 50 ML IV SCH ×4 (02:35→20:28)
[2021-02-02 04:00] VITALS: BP 130/70
[2021-02-02 04:32] LABS: CALCIUM LEVEL 9.1 MG/DL (8.5-10.1); CREATININE FOR GFR 1.62 MG/DL (0.55-1.30); GLOMERULAR FILTRATION RATE 35.3 (>51); POTASSIUM SERUM 5.1 MEQ/L (3.5-5.1)
[2021-02-02 05:22] LABS: HEMATOCRIT 34.8 % (36.0-47.0); MEAN CORPUSCULAR HEMOGLOBIN 29.3 pg (27.0-33.0); MEAN CORPUSCULAR HGB CONC 34.5 g/dl (32.0-36.5); MEAN CORPUSCULAR VOLUME 85.1 fl (80.0-96.0); PLATELET COUNT, AUTOMATED 289 10^3/uL (150-450); RED BLOOD COUNT 4.09 10^6/uL (4.00-5.40); WHITE BLOOD COUNT 11.3 10^3/uL (4.0-10.0)
[2021-02-02] MEDS: HEPARIN SOD (PORCINE) 5000UNITS/ML 1ML VIAL/SYRINGE SQ SCH ×3 (05:31→20:27)
[2021-02-02 05:48] LABS: C REACTIVE PROTEIN QUANTITATIV 17.3 MG/DL (0.00-0.30); CALCIUM LEVEL 8.9 MG/DL (8.5-10.1); CREATININE FOR GFR 1.35 MG/DL (0.55-1.30); GLOMERULAR FILTRATION RATE 43.5 (>51); POTASSIUM SERUM 4.9 MEQ/L (3.5-5.1)
[2021-02-02] MEDS ORDERED: LIDOCAINE 1% MDV 20ML VIAL As Ordered ONE (07:13)
[2021-02-02] MEDS ORDERED: BUPIVACAINE HCL 0.25% 10ML VIAL As Ordered ONE ×2 (07:13→07:14)
[2021-02-02 07:29] VITALS: BP 133/101
[2021-02-02] MEDS: VANCOMYCIN HCL 1,000 MG, VIAL MATE ADAPTER 1 EACH in NS 250 ML IV SCH ×2 (07:34→20:29)
[2021-02-02] MEDS ORDERED: GLUCOSE 4GM CHEW TABLET PO PRN (07:35)
[2021-02-02] MEDS ORDERED: GLUCAGON INJ 1MG VIAL SC PRN (07:35)
[2021-02-02] MEDS ORDERED: DEXTROSE 50% 50 ML SYRINGE IV PRN (07:35)
[2021-02-02 07:47] VITALS: BP 135/65
[2021-02-02] MEDS: HumaLOG INSULIN (NovoLOG) PER UNIT SC SCH ×4 (08:37→20:27)
[2021-02-02] MEDS ORDERED: hydroCHLOROthiazide 12.5 MG CAPSULE PO SCH (09:00)
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
[2021-02-02] MEDS ORDERED: MIDAZOLAM INJ 2MG/2ML VIAL (J2250 PER 1MG) As Ordered ONE (09:22)
[2021-02-02] MEDS ORDERED: propofoL 200 MG/20 ML VIAL As Ordered ONE (09:22)
[2021-02-02] MEDS ORDERED: fentaNYL 100 MCG/2 ML INJECTION (J3010) As Ordered ONE (09:22)
[2021-02-02] MEDS ORDERED: LIDOCAINE 2% 100MG/5ML SDV (FOR ANES.) As Ordered ONE (09:22)
[2021-02-02] MEDS ORDERED: fentaNYL 100 MCG/2 ML INJECTION (J3010) IV PRN (10:55)
[2021-02-02] MEDS ORDERED: METOCLOPRAMIDE INJ 10MG/2ML VIAL (J2765 PER 1) IV PRN (10:55)
[2021-02-02] MEDS ORDERED: NS 1,000 ML IV SCH (10:55)
[2021-02-02] MEDS ORDERED: ONDANSETRON 4MG/2ML VIAL IV PRN (10:55)
[2021-02-02] MEDS ORDERED: PERCOCET 5MG/325MG TAB PO PRN (10:55)
--- NOTE | 2021-02-02 11:08 | CR ---
CONSULTATION DATE: 02/02/2021 HISTORY OF PRESENT ILLNESS: Rama Moreira is a patient well known to me. She was seen in my office for followup of a fifth toe ulceration. In my office yesterday the wound was noted to have markedly worsened and the toe was now gangrenous. Decision was made to send her to the ER for admission. PAST MEDICAL HISTORY: 1. Insulin dependent diabetes with neuropathy. 2. Chronic back pain. 3. Chronic kidney disease, stage 3. 4. Hypertension. 5. Hyperlipidemia. 6. Asthma, 7. Vitamin D deficiency. SURGICAL HISTORY: 1. Breast surgery. 2. Elbow surgery. 3. Brain surgery. 4. Chest tube placement. 5. Left second toe amputation. SOCIAL HISTORY: Positive for tobacco, denies alcohol use. FAMILY HISTORY: Noncontributory. ALLERGIES: LACOSAMIDE, SULFamethoxazole and trimethoprim. REVIEW OF SYSTEMS: Negative for nausea, vomiting, fever or chills. Vitals: She has been afebrile since admission. LABORATORY DATA: White blood cell count 13.2 on admission, ESR 73, CRP 18.2. Lower extremity examination: Left fifth toe is fully gangrenous with local erythema and edema. ASSESSMENT: This is a 55-year-old diabetic female with fifth toe gangrene. PLAN: The patient to go to the OR now for amputation of fifth toe. She will be admitted afterwards for antibiotics and monitoring.
[2021-02-02 11:12] VITALS: BP 140/63
--- NOTE | 2021-02-02 11:12 | RO ---
OPERATIVE NOTE DATE OF OPERATION: 02/02/2021 PREOPERATIVE DIAGNOSIS: Left foot 5th toe gangrene. POSTOPERATIVE DIAGNOSIS: Left foot 5th toe gangrene. PROCEDURE: Left 5th toe and metatarsal amputation. SURGEON: HARSH FERRER D.P.M. RETAIL EQUIPMENT ASSOCIATE: None. ANESTHESIA: Monitored anesthesia care, preop injection of 10 ml of a 1:1 mixture of 1% lidocaine plain, 1/2% Marcaine plain. ESTIMATED BLOOD LOSS: Minimal. MATERIALS: 3-0 nylon. SPECIMENS: Left 5th toe and metatarsal, aerobic and aneorbic cultures. COMPLICATIONS: None. CONDITION: Stable. INDICATIONS: Rama Moreira is a 55-year-old diabetic female who was admitted through the ER after being seen in my office. She is here today for amputation of the fifth toe. The patient's side and site were identified and marked in the preoperative area. Consent was reviewed and obtained. The risks, complications and alternatives to the procedure were explained to the patient in detail and all questions were answered. DESCRIPTION OF PROCEDURE: The patient was brought to the Operating Room and placed on the operating room table in the supine position. . Monitored anesthesia care was delivered by the anesthesia team. A preop injection of 10 mL of a 1:1 mixture of 1% Lidocaine plain and 1/2% Marcaine plain were injected into the leftt foot. The left foot was prepped and draped in normal sterile fashion. A tourniquet was applied to the left ankle but as not utilized during the procedure. The toe was inspected. The 5th toe was fully gangrenous just proximal to the fifth metatarsophalangeal toe. The toe was disarticulated using a #15 blade at the metatarsophalangeal joint. A dorsal incision was drawn. The soft tissue overlying the 5th metatarsal head was released and the 5th metatarsal head was excised using a sagittal saw. Some necrotic tissue around the joint and toe were debrided. The site was irrigated with normal saline. The toe and metatarsal were sent for pathology. Culture swabs were taken of the necrotic tissue. The site was packed with saline gauze and dry sterile dressings were applied. The patient was brought to the PACU with vital signs stable and neurovascular status intact. She will be admitted to the floor for antibiotics. Will plan an arterial ultrasound to evaluate her blood flow. Will follow.
[2021-02-02] MEDS: FAMOTIDINE 20 MG TAB PO SCH ×2 (11:20→20:28)
[2021-02-02] MEDS: QUEtiapine FUMARATE 25 MG TAB PO SCH (11:20)
[2021-02-02] MEDS: ATORVASTATIN 10 MG TAB PO SCH (11:20)
[2021-02-02] MEDS: FERROUS GLUCONATE 324 MG TAB PO SCH (11:20)
[2021-02-02 12:41] LABS: CREATININE FOR GFR 1.15 MG/DL (0.55-1.30); GLOMERULAR FILTRATION RATE 52.3 (>51); POTASSIUM SERUM 4.7 MEQ/L (3.5-5.1)
--- NOTE | 2021-02-02 15:52 | REP ---
INDICATION: with PRISCILA DX: PVD with ulcer COMPARISON: None. TECHNIQUE: Bilateral lower extremity arterial ultrasound with real-time sonographic evaluation and Doppler. FINDINGS: All velocities represent peak systolic velocities in cm/S EC On the right: The ankle brachial index is 0.94 SUPERVISOR TESTING: 109 triphasic Profunda: 133 biphasic SFA proximal: 135 biphasic SFA Mid: 104 biphasic SFA distal 82/223 biphasic Popliteal: 79/86 biphasic CARLO proximal: 44 biphasic Tibioperoneal trunk: 49 biphasic JOURNEYMAN LEVEL ACOUSTIC ANALYST proximal: 82 biphasic JOURNEYMAN LEVEL ACOUSTIC ANALYST distal: 6.0 biphasic CARLO distal: 55 triphasic On the left: The ankle brachial index is 0.92. SUPERVISOR TESTING: 164/206 triphasic Profunda: 143 biphasic SFA proximal: 174 biphasic SFA mid: 131 biphasic SFA distal: 184 biphasic Popliteal: 165/450 triphasic CARLO proximal: 98 monophasic Tibioperoneal trunk: 88 biphasic JOURNEYMAN LEVEL ACOUSTIC ANALYST proximal: 162 triphasic JOURNEYMAN LEVEL ACOUSTIC ANALYST distal: 36 monophasic CARLO distal: 85 monophasic Moderate to severe plaque was seen bilaterally. On the right a 2.7:1 stenosis at the level of the SFA distally and popliteal artery. On the left a distal popliteal artery stenosis of 2.7:1 was identified. IMPRESSION: As above <Electronically signed by Cristobal Mendosa > 02/02/21 [id number]
[2021-02-02 19:17] LABS: HEMATOCRIT 34.7 % (36.0-47.0); HEMOGLOBIN 11.7 g/dl (12.0-15.5); MEAN CORPUSCULAR HEMOGLOBIN 29.4 pg (27.0-33.0); MEAN CORPUSCULAR HGB CONC 33.7 g/dl (32.0-36.5); MEAN CORPUSCULAR VOLUME 87.2 fl (80.0-96.0); PLATELET COUNT, AUTOMATED 284 10^3/uL (150-450); RED BLOOD COUNT 3.98 10^6/uL (4.00-5.40); WHITE BLOOD COUNT 12.6 10^3/uL (4.0-10.0)
[2021-02-02 19:42] LABS: CALCIUM LEVEL 8.7 MG/DL (8.5-10.1); CREATININE FOR GFR 1.37 MG/DL (0.55-1.30); GLOMERULAR FILTRATION RATE 42.8 (>51); POTASSIUM SERUM 5.4 MEQ/L (3.5-5.1)
[2021-02-02 19:58] LABS: ATYPICAL LYMPH 14 % (0-5); LYMPHOCYTES 12 % (16-44); MONOCYTES 1 % (0-5); NEUTROPHILS 65 % (28-66); PLATELET ESTIMATE NORMAL (NORMAL)
[2021-02-02 20:00] VITALS: BP 144/66
[2021-02-02] MEDS: MONTELUKAST 10 MG TAB PO SCH (20:28)
[2021-02-03] VITALS: BP 163/70
[2021-02-03] MEDS: PIPERACILLIN/TAZOBACTAM SOD 3.375 GM in D5W MINI-BAG PLUS 50 ML IV SCH ×4 (03:45→20:30)
[2021-02-03 04:00] VITALS: BP 134/72
[2021-02-03 05:53] LABS: C REACTIVE PROTEIN QUANTITATIV 13.9 MG/DL (0.00-0.30)
[2021-02-03] MEDS: HEPARIN SOD (PORCINE) 5000UNITS/ML 1ML VIAL/SYRINGE SQ SCH ×3 (06:29→22:40)
[2021-02-03 07:19] VITALS: BP 156/88
[2021-02-03] MEDS: HumaLOG INSULIN (NovoLOG) PER UNIT SC SCH ×4 (08:24→20:26)
[2021-02-03] MEDS: QUEtiapine FUMARATE 25 MG TAB PO SCH (08:25)
[2021-02-03] MEDS: FERROUS GLUCONATE 324 MG TAB PO SCH (08:25)
[2021-02-03] MEDS: ATORVASTATIN 10 MG TAB PO SCH (08:25)
[2021-02-03] MEDS: carBAMazepine 100MG 5ML SUSP ORAL SYRINGE *DRAW UP EXACT DOSE PO SCH ×2 (08:25→20:26)
[2021-02-03] MEDS: FAMOTIDINE 20 MG TAB PO SCH ×2 (08:25→20:25)
[2021-02-03 08:33] LABS: CALCIUM LEVEL 8.6 MG/DL (8.5-10.1); CREATININE FOR GFR 1.04 MG/DL (0.55-1.30); GLOMERULAR FILTRATION RATE 58.8 (>51); POTASSIUM SERUM 4.7 MEQ/L (3.5-5.1)
[2021-02-03 09:17] LABS: BASO # 0.1 10^3/uL (0.0-0.2); BASO % 0.5 % (0.0-1.0); EOS # 0.1 10^3/uL (0.0-0.5); EOS % 0.9 % (0.0-3.0); HEMATOCRIT 35.1 % (36.0-47.0); HEMOGLOBIN 11.5 g/dl (12.0-15.5); LYMPH % 15.3 % (24.0-44.0); MEAN CORPUSCULAR HEMOGLOBIN 28.7 pg (27.0-33.0); MEAN CORPUSCULAR HGB CONC 32.8 g/dl (32.0-36.5); MEAN CORPUSCULAR VOLUME 87.5 fl (80.0-96.0); MONO # 0.9 10^3/uL (0.0-0.8); MONO % 6.9 % (2.0-8.0); NEUTROPHILS # 9.6 10^3/uL (1.5-8.5); NEUTROPHILS % 75.2 % (36.0-66.0); PLATELET COUNT, AUTOMATED 297 10^3/uL (150-450); RED BLOOD COUNT 4.01 10^6/uL (4.00-5.40); WHITE BLOOD COUNT 12.7 10^3/uL (4.0-10.0)
--- NOTE | 2021-02-03 10:10 | ECGEPIP ---
[facility] Test Date: 2021-02-03 Pat Name: CLARISA LLANES Department: Room: [place] [address] Gender: Female Barrel Finisher: DARREN : 1965 Requested By: BALAJI CHOWDARY Order Number: [id number] Reading MD: Sawyer Levy Measurements Intervals [place] Rate: 83 P: 61 WI: 190 QRS: -29 QRSD: 138 T: 76 QT: 412 QTc: 484 Interpretive Statements Normal sinus rhythm Left bundle branch block Similar to tracing done 08-17-20 Electronically Signed on 02-03-2021 10:09:58 EDT by Sawyer Levy
[2021-02-03] MEDS: VANCOMYCIN HCL 1,000 MG, VIAL MATE ADAPTER 1 EACH in NS 250 ML IV SCH (10:12)
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
[2021-02-03 12:00] VITALS: BP 145/71
--- NOTE | 2021-02-03 13:31 | IPN ---
PROGRESS NOTE DATE: 02/03/2021 SUBJECTIVE: The patient is seen and examined. Denies overnight complaints. OBJECTIVE: Vitals: She has been afebrile. Labs: White blood cell count is __.7, CRP is 13.9. Arterial ultrasound shows severe plaquing with a stenosis at the distal popliteal artery. Lower extremity examination: Erythema and edema are improved. The wound base is free of purulent or necrotic tissue. ASSESSMENT: This is a 55-year-old female with a gangrene of the left foot status post toe and ray amputation. PLAN: Vascular Surgery consulted for opinion on angiogram/plasty. Continue IV antibiotics. Await OR cultures.
[2021-02-03 16:36] VITALS: BP 152/82
[2021-02-03] MEDS ORDERED: ACETAMINOPHEN TAB 650MG DOSE (2X325MG) PO PRN (17:30)
[2021-02-03 20:00] VITALS: BP 159/81
[2021-02-03] MEDS: MONTELUKAST 10 MG TAB PO SCH (20:26)
[2021-02-04] MEDS: PIPERACILLIN/TAZOBACTAM SOD 3.375 GM in D5W MINI-BAG PLUS 50 ML IV SCH ×2 (02:12→09:08)
[2021-02-04] MEDS ORDERED: VANCOMYCIN HCL 1,000 MG, VIAL MATE ADAPTER 1 EACH in NS 250 ML IV SCH (04:00)
[2021-02-04] MEDS: HEPARIN SOD (PORCINE) 5000UNITS/ML 1ML VIAL/SYRINGE SQ SCH (05:53)
[2021-02-04 06:00] VITALS: BP 155/79
--- NOTE | 2021-02-04 08:29 | CR.PDOC ---
General Date of Consultation: Feb 04, 2021 Referring Provider: BETO BUTTERFIELD MD Consultation REASON FOR CONSULTATION/CHIEF COMPLAINT: Bilateral peripheral arterial disease. HISTORY OF PRESENT ILLNESS: Patient with left fifth toe ulceration which has progressed to gangrene was admitted for IV antibiotics and toe amputation. Patient has history of left second toe amputation. During the hospital stay she had an arterial duplex, which showed left popliteal stenosis and right SFA stenosis. As per conversation with Dr. Butterfield and Dr. Yang, patient has adequate blood flow to foot, however would benefit from vascular intervention even as outpatient. ALLERGIES: Please see below. HOME MEDICATIONS: Please see below. PAST MEDICAL HISTORY: 1. Insulin dependent diabetes with neuropathy. 2. Chronic back pain. 3. Chronic kidney disease, stage 3. 4. Hypertension. 5. Hyperlipidemia. 6. Asthma, 7. Vitamin D deficiency PAST SURGICAL HISTORY: 1. Breast surgery. 2. Elbow surgery. 3. Brain surgery. 4. Chest tube placement. 5. Left second toe amputation FAMILY HISTORY: noncontributory SOCIAL HISTORY: +tob REVIEW OF SYSTEMS: Grossly negative except for what is listed in H&P. PHYSICAL EXAMINATION: VITAL SIGNS: Please see below. GENERAL APPEARANCE: No acute distress. HEENT: Normocephalic atraumatic, supple. RESPIRATORY: Clear to auscultation bilaterally. CARDIOVASCULAR: S1 and S2, RRR. ABDOMEN: Obese soft nondistended nontender. EXTREMITIES: Left foot dressing in place, right foot warm no open ulcers. NEUROLOGICAL: Grossly intact. PSYCHIATRIC: Calm and cooperative. LABORATORY DATA: Please see below. Arterial Duplex On the right: The ankle brachial index is 0.94 METAL MODEL BUILDER: 109 triphasic Profunda: 133 biphasic SFA proximal: 135 biphasic SFA Mid: 104 biphasic SFA distal 82/223 biphasic Popliteal: 79/86 biphasic CARLO proximal: 44 biphasic Tibioperoneal trunk: 49 biphasic COAL CRUSHER OPERATOR proximal: 82 biphasic COAL CRUSHER OPERATOR distal: 6.0 biphasic CARLO distal: 55 triphasic On the left: The ankle brachial index is 0.92. METAL MODEL BUILDER: 164/206 triphasic Profunda: 143 biphasic SFA proximal: 174 biphasic SFA mid: 131 biphasic SFA distal: 184 biphasic Popliteal: 165/450 triphasic CARLO proximal: 98 monophasic Tibioperoneal trunk: 88 biphasic COAL CRUSHER OPERATOR proximal: 162 triphasic COAL CRUSHER OPERATOR distal: 36 monophasic CARLO distal: 85 monophasic ASSESSMENT/PLAN: 55-year-old diabetic female status post left fifth toe amputation has bilateral multilevel peripheral arterial disease. Patient would benefit from endovascular intervention as an outpatient. Recommend starting daily baby aspirin. We will arrange for outpatient left leg angiogram with possible intervention for next week. Discussed with patient and her partner as well as Dr. Butterfield and Dr. Yang. Vital Signs/I&O Vital Signs Date Time Temp Pulse Resp B/P (MAP) Pulse Ox O2 Delivery O2 Flow Rate FiO2 02/04/21 06:00 98.5 73 19 155/79 (104) 99 Room Air I&O- Last 24 Hours up to 6 AM 02/04/21 05:59 Intake Total 1210 ml Balance 1210 ml Laboratory Data Labs 24H Laboratory Tests 2 02/03/21 08:45: Immature Granulocyte % (Auto) 1.2, Neutrophils (%) (Auto) 75.2H, Lymphocytes (%) (Auto) 15.3L, Monocytes (%) (Auto) 6.9, Eosinophils (%) (Auto) 0.9, Basophils (%) (Auto) 0.5, Neutrophils # (Auto) 9.6H, Lymphocytes # (Auto) 2.0, Monocytes # (Auto) 0.9H, Eosinophils # (Auto) 0.1, Basophils # (Auto) 0.1, Nucleated Red B lood Cells % (auto) 0.0 02/03/21 11:55: Bedside Glucose (Misc Panel) 189H 02/03/21 17:02: Bedside Glucose (Misc Panel) 298H 02/03/21 20:00: Bedside Glucose (Misc Panel) 263H 02/03/21 21:50: Vancomycin Level Trough 24.4H 02/04/21 05:51: Bedside Glucose (Misc Panel) 210H CBC/BMP Laboratory Tests 02/03/21 08:45 Microbiology Microbiology 02/02/21 Gram Stain - Final, Resulted 02/02/21 Wound Culture - Preliminary, Resulted Citrobacter Braakii Enterobacter Cloacae Complex Staphylococcus Aureus 02/02/21 Anaerobic Culture, Resulted Pending 02/01/21 Gram Stain - Final, Resulted 02/01/21 Wound Culture - Preliminary, Resulted Enterobacter Cloacae Complex Enterococcus Faecalis 02/01/21 Blood Culture - Preliminary, Resulted No Growth after 48 hours. All Specime... 02/01/21 Blood Culture - Preliminary, Resulted No Growth after 48 hours. All Specime... Allergies Coded Allergies: lacosamide (Verified Allergy, Unknown, 08/06/20) sulfamethoxazole (Verified Adverse Reaction, Unknown, n/v, 02/01/21) trimethoprim (Verified Adverse Reaction, Unknown, n/v, 02/01/21) Home Medications Scheduled Atorvastatin Calcium (Atorvastatin Calcium) 10 Mg Tablet, 10 MG PO DAILY, (Reported) Carbamazepine (Carbamazepine) 100 Mg/5 Ml Oral.susp, 5 ML PO BID, (Reported) Ergocalciferol (Vitamin D2) (Vitamin D2) 50,000 Units Cap, 50,000 UNITS PO QWEEK, (Reported) MONDAYS Famotidine (Famotidine) 40 Mg Tablet, 40 MG PO BID, (Reported) Ferrous Gluconate (Ferrous Gluconate) 324 Mg Tablet, 324 MG PO DAILY, (Reported) Hydrochlorothiazide (Hydrochlorothiazide) 12.5 Mg Capsule, 12.5 MG PO DAILY, (Reported) Insulin Glargine,Hum.rec.anlog (Basaglar Kwikpen U-100) 100 Unit/1 Ml Insuln.pen, 10 UNITS SQ DAILY, (Reported) Levocetirizine Dihydrochloride (Levocetirizine Dihydrochloride) 5 Mg Tablet, 5 MG PO DAILY, (Reported) Linezolid (Linezolid) 600 Mg Tablet, 600 MG PO BID, (Reported) FILLED 01/31/21 FOR 14 DAYS Montelukast Sodium (Montelukast Sodium) 10 Mg Tablet, 10 MG PO QHS, (Reported) Quetiapine Fumarate (Quetiapine Fumarate) 25 Mg Tablet, 25 MG PO DAILY, (Reported) Scheduled PRN Albuterol Sulf (Albuterol Sulfate) 2.5 Mg/3 Ml Vial.neb, 2.5 MG INH TID PRN for SHORTNESS OF BREATH, (Reported) Tramadol HCl (Tramadol HCl) 50 Mg Tablet, 50 MG PO BID PRN for MODERATE PAIN (PS 5-7), (Reported) CLAUDIA VELOZ MD Feb 04, 2021 08:29
[2021-02-04] MEDS ORDERED: ASPIRIN 81MG ENTERIC TABLET PO SCH (09:00)
[2021-02-04] MEDS: FERROUS GLUCONATE 324 MG TAB PO SCH (09:07)
[2021-02-04] MEDS: QUEtiapine FUMARATE 25 MG TAB PO SCH (09:07)
[2021-02-04] MEDS: FAMOTIDINE 20 MG TAB PO SCH (09:07)
[2021-02-04] MEDS: ATORVASTATIN 10 MG TAB PO SCH (09:07)
[2021-02-04] MEDS: HumaLOG INSULIN (NovoLOG) PER UNIT SC SCH (09:07)
[2021-02-04] MEDS: carBAMazepine 100MG 5ML SUSP ORAL SYRINGE *DRAW UP EXACT DOSE PO SCH (09:08)
[2021-02-04 10:27] LABS: BASO # 0.1 10^3/uL (0.0-0.2); BASO % 0.6 % (0.0-1.0); EOS # 0.1 10^3/uL (0.0-0.5); EOS % 0.9 % (0.0-3.0); HEMATOCRIT 33.7 % (36.0-47.0); HEMOGLOBIN 11.2 g/dl (12.0-15.5); LYMPH # 2.2 10^3/uL (1.5-5.0); LYMPH % 19.6 % (24.0-44.0); MEAN CORPUSCULAR HEMOGLOBIN 29.2 pg (27.0-33.0); MEAN CORPUSCULAR HGB CONC 33.2 g/dl (32.0-36.5); MONO # 0.7 10^3/uL (0.0-0.8); MONO % 5.7 % (2.0-8.0); NEUTROPHILS # 8.2 10^3/uL (1.5-8.5); PLATELET COUNT, AUTOMATED 296 10^3/uL (150-450); RED BLOOD COUNT 3.83 10^6/uL (4.00-5.40); WHITE BLOOD COUNT 11.4 10^3/uL (4.0-10.0)
[2021-02-04 10:57] LABS: BLOOD UREA NITROGEN 13 MG/DL (7-18); CALCIUM LEVEL 8.9 MG/DL (8.5-10.1); CARBON DIOXIDE LEVEL 27 MEQ/L (21-32); CHLORIDE LEVEL 104 MEQ/L (98-107); CREATININE FOR GFR 0.98 MG/DL (0.55-1.30); GLOMERULAR FILTRATION RATE > 60.0 (>51); GLUCOSE, FASTING 287 MG/DL (70-100); MAGNESIUM LEVEL 1.4 MG/DL (1.8-2.4); POTASSIUM SERUM 5.2 MEQ/L (3.5-5.1); SODIUM LEVEL 135 MEQ/L (136-145)
[2021-02-04] MEDS ORDERED: LEVO750T14 PO (11:40)
[2021-02-04] MEDS ORDERED: LINE1TAB6 PO (11:40)
[2021-02-04] MEDS ORDERED: CVS1CAP2 PO (11:40)
[2021-02-04] MEDS ORDERED: FLAG500T PO (11:40)
[2021-02-04] MEDS ORDERED: ASPI81CH33 PO (11:40)
--- NOTE | 2021-02-04 13:14 | IPN ---
PROGRESS NOTE DATE: 02/04/2021 SUBJECTIVE: Patient seen and examined. States she wants to go home. Denies overnight complaints. OBJECTIVE: VITAL SIGNS: She has remained afebrile. LOWER EXTREMITY EXAMINATION: Erythema and edema are improved. No further necrotic tissue is noted. Some slight dysvascular change to the fourth toe. LABORATORY DATA: White cell count 11.4. ASSESSMENT: A 55-year-old diabetic female status post fifth toe and ray amputation. PLAN: Vascular surgery, Dr. Cat, has evaluated her and they will plan an angiogram next week. She should have followup with myself. She can be discharged on oral antibiotics.
--- NOTE | 2021-02-04 15:35 | DS.PDOC ---
Discharge Summary General Date of Admission Feb 01, 2021 at 15:32 Date of Discharge Feb 04, 2021 Discharge Summary PROCEDURES PERFORMED DURING STAY: Left 5th toe and metatarsal amputation ADMITTING DIAGNOSES: 1. Gangrenous necrosis and osteomyelitis of Left 5th toe DISCHARGE DIAGNOSES: 1. Cellulitis of the soft tissue of foot 2. Bilateral multilevel peripheral arterial disease COMPLICATIONS/CHIEF COMPLAINT: Dileep (Acute Kidney Injury), Left Foot Infection HISTORY OF PRESENT ILLNESS: 55-year-old female presented to the ED for left toe ulcer. Patient states that 8 days ago she had a small cut on her left pinky toe which she was unable to feel as she has no feeling in her foot bilaterally. She saw Dr. Yang in clinic as he is her manager emergency department. Was then placed on some antibiotics (bactrim) but found out that she was allergic to it. Last night patient states that she saw her toe go black so she went to see Dr. Yang who then sent her to the ED for further evaluation. Patient states that she had her tetanus shot about a year ago. Due to her gangrenous necrosis with possible osteomyelitis, hospitalist was contacted for admission. HOSPITAL COURSE: In the ED patient was found to have leukocytosis, elevated CRP and a Foot X-ray was complete. Labs and imaging were consistent with her clinical presentation of gangrenous necrosis with possible osteomyelitis. Wound cultures were obtained 02/01/21 She was placed on IV vancomycin and zosyn to cover for the infectious etiology of her foot. Incidental finding of hyponatremia with sodium of 126 was discovered; was thought to be hypovolemic and after gentle hydration, sodium levels up trended to 136. Dr. Yang was consulted and plan was to have her in surgery on 02/02/21. Patient underwent Left 5th toe and metatarsal amputation to debride the gangrenous necrosis with osteomyelitis. During the surgery, intraoperative cultures were obtained. After surgery, an Extremity Arterial Study was obtained to determine if there was enough blood flow for healing. Subsequently vascular surgery was consulted and states that she has adequate blood flow to foot but would benefit from vascular intervention in an outpatient setting. Wound cultures from ED showed Enterbacter cloacae, Citrobacter freundii, Enterococcus faecalis. Preliminary intraoperative wound cultures showed Citrobacter braakii, Enterbacter cloacae and staphylococcus aureus and pending anaerobes. Patient received IV vancomycin and zosyn for a total of 3 days. She will be placed on a 14-day course of Levaquin, Flagyl and Linezolid which the organisms are sensitive to and to cover for possible MRSA or anaerobes. She will also be placed on Aspirin 81mg for her peripheral artery disease. DISCHARGE MEDICATIONS: Please see below. ALLERGIES: Please see below. PHYSICAL EXAMINATION ON DISCHARGE: VITAL SIGNS: Please see below. GENERAL: No acute distress, well-nourished and hydrated HEENT: Head normocephalic atraumatic, moist mucous membranes CARDIOVASCULAR: Regular rate and rhythm, no murmurs noted RESPIRATORY: Clear to auscultation bilaterally; no wheezes, rhonchi or rales noted EXTREMITIES: Left second toe amputated (well healed); left fifth toe amputated wrapped with dressing NEUROLOGICAL: Loss of sensation in her foot up to mid huff bilaterally LABORATORY DATA: Please see below. IMAGING: LEFT FOOT X-RAY "IMPRESSION: Findings involving the head of the 5th metatarsal and 5th digit soft tissues as described above consistent with infectious etiology. Rarefied bone is seen an acute osteomyelitis when a substantial amount of bone is affected. Pre and post gadolinium enhanced MRI is recommended for further evaluation and disease extension." EXTREMITY ARTERIAL STUDY "Moderate to severe plaque was seen bilaterally. On the right a 2.7:1 stenosis at the level of the SFA distally and popliteal artery. On the left a distal popliteal artery stenosis of 2.7:1 was identified." PROGNOSIS: good ACTIVITY: As tolerated DIET: Regular diet DISPOSITION: 06 Home Health Service. DISCHARGE INSTRUCTIONS: 1. please follow up with PCP in the next 2 weeks ITEMS TO FOLLOWUP ON ON OUTPATIENT: 1. please follow up with podiatry as scheduled for continued management of cellulitis of the soft tissue of foot 2. please follow up with vascular surgery as scheduled for continued management of bilateral multilevel peripheral arterial disease DISCHARGE CONDITION: Stable TIME SPENT ON DISCHARGE: 31 minutes. Vital Signs/I&Os Vital Signs Date Time Temp Pulse Resp B/P (MAP) Pulse Ox O2 Delivery O2 Flow Rate FiO2 02/04/21 06:00 98.5 73 19 155/79 (104) 99 Room Air I&O- Last 24 Hours up to 6 AM 02/04/21 06:00 Intake Total 1310 ml Output Total 525 ml Balance 785 ml Laboratory Data Labs 24H Laboratory Tests 2 02/03/21 17:02: Bedside Glucose (Misc Panel) 298H 02/03/21 20:00: Bedside Glucose (Misc Panel) 263H 02/03/21 21:50: Vancomycin Level Trough 24.4H 02/04/21 05:51: Bedside Glucose (Misc Panel) 210H 02/04/21 09:13: Immature Granulocyte % (Auto) 1.2, Neutrophils (%) (Auto) 72.0H, Lymphocytes (%) (Auto) 19.6L, Monocytes (%) (Auto) 5.7, Eosinophils (%) (Auto) 0.9, Basophils (%) (Auto) 0.6, Neutrophils # (Auto) 8.2, Lymphocytes # (Auto) 2.2, Monocytes # (Auto) 0.7, Eosinophils # (Auto) 0.1, Basophils # (Auto) 0.1, Nucleated Red Blood Cells % (auto) 0.0, Anion Gap 4L, Glomerular Filtration Rate > 60.0, Calcium Level 8.9, Magnesium Level 1.4L 02/04/21 11:48: Bedside Glucose (Misc Panel) 260H CBC/BMP Laboratory Tests 02/04/21 09:13 FSBS Laboratory Tests Test 02/03/21 17:02 02/03/21 20:00 02/04/21 05:51 02/04/21 11:48 Range/Units Bedside Glucose (Misc Panel) 298 263 210 260 70-105 MG/DL Microbiology Microbiology 02/02/21 Gram Stain - Final, Resulted 02/02/21 Wound Culture - Preliminary, Resulted Citrobacter Braakii Enterobacter Cloacae Complex Staphylococcus Aureus 02/02/21 Anaerobic Culture, Resulted Pending 02/01/21 Gram Stain - Final, Complete 02/01/21 Wound Culture - Final, Complete Enterobacter Cloacae Complex Citrobacter Freundii Enterococcus Faecalis 02/01/21 Blood Culture - Preliminary, Resulted No Growth after 72 hours. All specime... 02/01/21 Blood Culture - Preliminary, Resulted No Growth after 72 hours. All specime... Discharge Medications Scheduled Aspirin (Aspirin) 81 Mg Tab.chew, 81 MG PO DAILY for Peripheral Vascular Disease Take 1 pill daily Atorvastatin Calcium (Atorvastatin Calcium) 10 Mg Tablet, 10 MG PO DAILY, (Reported) Carbamazepine (Carbamazepine) 100 Mg/5 Ml Oral.susp, 5 ML PO BID, (Reported) Ergocalciferol (Vitamin D2) (Vitamin D2) 50,000 Units Cap, 50,000 UNITS PO QWE EK, (Reported) MONDAYS Famotidine (Famotidine) 40 Mg Tablet, 40 MG PO BID, (Reported) Ferrous Gluconate (Ferrous Gluconate) 324 Mg Tablet, 324 MG PO DAILY, (Reported) Hydrochlorothiazide (Hydrochlorothiazide) 12.5 Mg Capsule, 12.5 MG PO DAILY, (Reported) Insulin Glargine,Hum.rec.anlog (Basaglar Kwikpen U-100) 100 Unit/1 Ml Insuln.pen, 10 UNITS SQ DAILY, (Reported) Lactobacillus Combo No.10 (Probiotic) 1 Each Capsule, 1 TAB PO DAILY Levocetirizine Dihydrochloride (Levocetirizine Dihydrochloride) 5 Mg Tablet, 5 MG PO DAILY, (Reported) Linezolid (Linezolid) 600 Mg Tablet, 600 MG PO BID Metronidazole (Flagyl) 500 Mg Tablet, 500 MG PO BID for Cellulitis (cover for anaerobe Montelukast Sodium (Montelukast Sodium) 10 Mg Tablet, 10 MG PO QHS, (Reported) Quetiapine Fumarate (Quetiapine Fumarate) 25 Mg Tablet, 25 MG PO DAILY, (Reported) levoFLOXacin (levoFLOXacin) 750 Mg Tablet, 750 MG PO DAILY Scheduled PRN Albuterol Sulf (Albuterol Sulfate) 2.5 Mg/3 Ml Vial.neb, 2.5 MG INH TID PRN for SHORTNESS OF BREATH, (Reported) Tramadol HCl (Tramadol HCl) 50 Mg Tablet, 50 MG PO BID PRN for MODERATE PAIN (PS 5-7), (Reported) Allergies Coded Allergies: lacosamide (Verified Allergy, Unknown, 08/06/20) sulfamethoxazole (Verified Adverse Reaction, Unknown, n/v, 02/01/21) trimethoprim (Verified Adverse Reaction, Unknown, n/v, 02/01/21) GME ATTESTATION GME ATTESTATION My faculty preceptor for this patient encounter was physically present during the encounter and was fully available. All aspects of the patient interview, examination, medical decision making process, and medical care plan development were reviewed and approved by the faculty preceptor. The faculty preceptor is aware and concurs with the plan as stated in the body of this note and will attest to such by his/her cosignature. ATTENDING NOTE I, Zeynep Jimenez, have independently examined this patient and performed my own physical exam, as well as reviewed the documentation and edited where necessary. I have discussed in detail with the resident / student the findings and plan of treatment as documented by the resident / student and edited their note. I agree with their findings and treatment plan and have edited their documentation. I will continue to follow the patient during this hospital stay. Time spent on discharge 35 minutes Che Holliday DO Feb 04, 2021 15:34 ZEYNEP JIMENEZ MD Feb 04, 2021 16:05
== END 2021-02-04 14:00 | disposition home health service (06) | DRG 314 ==
LOC: M ED 09:44 → M ED INP 15:32 → ENRESERV 18:40 → M PCU 21:04 → M MS5PR 02-03 09:42
PROVIDERS: ADMIT Internal Medicine; ATTEND Internal Medicine
PROC: 0Y6Y0Z0 Detachment at Left 5th Toe, Complete, Open Approach (ICD-10-PCS; principal; 2021-02-02 10:00)
DX: E11.52 Type 2 diabetes mellitus with diabetic peripheral angiopathy with gangrene (principal); N17.9 Acute kidney failure, unspecified; M86.272 Subacute osteomyelitis, left ankle and foot; E11.621 Type 2 diabetes mellitus with foot ulcer; N18.30 Chronic kidney disease, stage 3 unspecified; E11.69 Type 2 diabetes mellitus with other specified complication; L97.924 Non-pressure chronic ulcer of unspecified part of left lower leg with necrosis of bone; E87.1 Hypo-osmolality and hyponatremia; Z79.82 Long term (current) use of aspirin; Z79.899 Other long term (current) drug therapy; Z88.2 Allergy status to sulfonamides; Z88.8 Allergy status to other drugs, medicaments and biological substances; J45.909 Unspecified asthma, uncomplicated; E55.9 Vitamin D deficiency, unspecified; F17.210 Nicotine dependence, cigarettes, uncomplicated; Z79.4 Long term (current) use of insulin; E78.5 Hyperlipidemia, unspecified; I12.9 Hypertensive chronic kidney disease with stage 1 through stage 4 chronic kidney disease, or unspecified chronic kidney disease; Z89.422 Acquired absence of other left toe(s)

== ENCOUNTER → 2021-04-01 | Outpatient (CLI) | payer OTHER ==
[~2021-04-01] MED LIST changes: +ASPI81CH33 PO; +BASA100I SC; +CVS1CAP2 PO; +FERR32TA PO; +HYDR12CA PO; +LEVO750T14 PO; +LINE1TAB6 PO; +MONT10TA10 PO; +PLAV1TAB2 PO
== END ==
LOC: M LABSMTC 10:17
PROVIDERS: ATTEND Anesthesiology
DX: Z01.812 Encounter for preprocedural laboratory examination (principal); Z20.822 Contact with and (suspected) exposure to COVID-19

== ENCOUNTER 2021-04-06 11:00 | Day surgery (SDC) | payer OTHER ==
[~2021-04-06] VITALS: Ht 154.9 cm; Wt 77.6 kg
[~2021-04-06 11:00] MED LIST changes: +LIDOCAINE 1% MDV 20ML VIAL SQ PRN; +LR 1,000 ML IV ONE; +ceFAZolin SOD 2 GM in IV 1 EA IV ONE
[2021-04-06] MEDS ORDERED: propofoL 200 MG/20 ML VIAL As Ordered ONE (12:01)
[2021-04-06] MEDS ORDERED: ACETAMINOPHEN 1000MG 100ML IV BTL (OFIRMEV) (J0131 PER 10MG) As Ordered ONE (12:01)
[2021-04-06] MEDS ORDERED: LIDOCAINE 2% 100MG/5ML SDV (FOR ANES.) As Ordered ONE (12:01)
[2021-04-06] MEDS ORDERED: fentaNYL 100 MCG/2 ML INJECTION (J3010) As Ordered ONE (12:01)
[2021-04-06] MEDS ORDERED: MIDAZOLAM INJ 2MG/2ML VIAL (J2250 PER 1MG) As Ordered ONE (12:01)
[2021-04-06] MEDS ORDERED: HumaLOG INSULIN (NovoLOG) PER UNIT SC ONE (12:10)
[2021-04-06] MEDS ORDERED: BUPIVACAINE HCL 0.5% 10ML VIAL As Ordered ONE (12:23)
[2021-04-06] MEDS ORDERED: LIDOCAINE 1% MDV 20ML VIAL As Ordered ONE (12:23)
[2021-04-06] MEDS ORDERED: CEPH500T PO (12:49)
[2021-04-06 13:15] VITALS: BP 146/62
--- NOTE | 2021-04-06 14:33 | RO ---
OPERATIVE NOTE DATE OF OPERATION: 04/06/2021 PREOPERATIVE DIAGNOSIS: Left foot diabetic ulcer and osteomyelitis. POSTOPERATIVE DIAGNOSIS: Left foot diabetic ulcer and osteomyelitis. PROCEDURE: Left third and fourth toe and metatarsal bone amputation. SURGEON: Kiran Yang DPM [employer]ER: None ANESTHESIA: Monitored anesthesia care, preop injection of 20 mL of a 1:1 mixture of 1% lidocaine plain, 1/2% Marcaine plain. ESTIMATED BLOOD LOSS: Minimal. MATERIALS: 3-0 nylon. SPECIMEN: Third and fourth toe metatarsal bone and aerobic and anaerobic cultures. COMPLICATION: None. CONDITION: Stable. INDICATIONS: This is a 55-year-old diabetic female with chronic ulceration to her left foot with infection and nonviable bone. She presents today for surgical correction. The patient's side and site were identified and marked in the preoperative area. Consent was reviewed and obtained. The risks, complications and alternatives to the procedure were explained to the patient in detail and all questions were answered. DESCRIPTION OF PROCEDURE: The patient was brought to the operating room and placed on the operating room table in supine position. Monitored anesthesia care was delivered by the anesthesia team. A preop injection of 20 mL of a 1:1 mixture of 1% Lidocaine plain and 1/2% Marcaine plain were injected into the left foot. The left foot was prepped and draped in normal sterile fashion. A tourniquet was applied to the left ankle and inflated at 250 mmHg. An elliptical incision was made around the ulcer and the remaining toes 3 and 4 and these were carried through a #15 blade. The third and fourth toes were disarticulated at the metatarsophalangeal joint. The metatarsal heads and remaining bone pieces of the third, fourth and fifth metatarsal bones were resected with a sagittal saw and sent for pathology. The site was irrigated with normal saline and closure was performed with 3-0 nylon. Tourniquet was deflated. A sterile dressing was applied. The patient was brought to the PACU with vital signs stable, neurovascular status intact. She will be weightbearing as tolerated and follow up in the office in two days.
== END 2021-04-06 14:10 | disposition home or self-care (01) ==
LOC: M SDC 11:00
PROVIDERS: ATTEND Podiatrist Foot & Ankle Surgery
DX: E11.621 Type 2 diabetes mellitus with foot ulcer (principal); M86.8X7 Other osteomyelitis, ankle and foot; I10 Essential (primary) hypertension; K21.9 Gastro-esophageal reflux disease without esophagitis; D64.9 Anemia, unspecified; J44.9 Chronic obstructive pulmonary disease, unspecified; G47.33 Obstructive sleep apnea (adult) (pediatric); Z79.4 Long term (current) use of insulin; Z79.899 Other long term (current) drug therapy; Z79.02 Long term (current) use of antithrombotics/antiplatelets; Z79.51 Long term (current) use of inhaled steroids; Z86.73 Personal history of transient ischemic attack (TIA), and cerebral infarction without residual deficits; F17.218 Nicotine dependence, cigarettes, with other nicotine-induced disorders; Z79.82 Long term (current) use of aspirin
CPT/HCPCS: 28810; 87070; 87075; 87076; 87077; 87186; 87205; 88305; 88311; J0131; J0690; J2250; J3010

== ENCOUNTER → 2021-04-26 | Outpatient (REF) | payer OTHER ==
[~2021-04-26] MED LIST changes: +CEPH500T PO; -LIDOCAINE 1% MDV 20ML VIAL SQ PRN; -LR 1,000 ML IV ONE; -ceFAZolin SOD 2 GM in IV 1 EA IV ONE
[2021-04-26 13:48] LABS: BACTERIA, URINE AUTO NEGATIVE (NEGATIVE); RBC, URINE AUTO 0 /HPF (0-3); SQUAMOUS EPITHELIAL CELL UR AU 9 /HPF (0-6); WBC, URINE AUTO 3 /HPF (0-3)
== END ==
LOC: M LAB REF 12:51
PROVIDERS: ATTEND Nurse Practitioner Family
DX: R31.29 Other microscopic hematuria (principal)

== ENCOUNTER → 2021-08-18 | Outpatient (CLI) | payer OTHER ==
[~2021-08-18] MED LIST changes: -MONT10TA10 PO; +MONT10TA97 PO
== END ==
LOC: M RAD 09:54
PROVIDERS: ATTEND Physician Assistant
DX: R94.5 Abnormal results of liver function studies (principal)

== ENCOUNTER 2022-01-25 17:27 | Inpatient (IN) | payer OTHER ==
[~2022-01-25] VITALS: Ht 154.9 cm; Wt 73.1 kg
[~2022-01-25 17:27] MED LIST changes: +ALBU2.5V10 INH; -ALBU83IN INH; -BASA100I SQ
[2022-01-25 19:03] LABS: BASO # 0.1 10^3/uL (0.0-0.2); BASO % 0.7 % (0.0-1.0); EOS # 0.1 10^3/uL (0.0-0.5); EOS % 1.6 % (0.0-3.0); HEMATOCRIT 36.2 % (36.0-47.0); HEMOGLOBIN 12.2 g/dl (12.0-15.5); LYMPH # 3.1 10^3/uL (1.5-5.0); LYMPH % 38.6 % (24.0-44.0); MEAN CORPUSCULAR HEMOGLOBIN 30.3 pg (27.0-33.0); MEAN CORPUSCULAR HGB CONC 33.7 g/dl (32.0-36.5); MONO # 0.6 10^3/uL (0.0-0.8); MONO % 7.1 % (2.0-8.0); NEUTROPHILS # 4.1 10^3/uL (1.5-8.5); NEUTROPHILS % 51.6 % (36.0-66.0); PLATELET COUNT, AUTOMATED 233 10^3/uL (150-450); RED BLOOD COUNT 4.02 10^6/uL (4.00-5.40)
[2022-01-25 19:39] LABS: ALBUMIN 3.3 GM/DL (3.2-5.2); ALT/SGPT 29 U/L (12-78); BILIRUBIN,DIRECT < 0.1 MG/DL (0.0-0.2); BILIRUBIN,TOTAL 0.4 MG/DL (0.2-1.0); BLOOD UREA NITROGEN 23 MG/DL (7-18); CALCIUM LEVEL 9.1 MG/DL (8.5-10.1); CARBAMAZEPINE (TEGRETOL) LEVEL < 0.5 UG/ML (4.0-10.0); CARBON DIOXIDE LEVEL 20 MEQ/L (21-32); CHLORIDE LEVEL 99 MEQ/L (98-107); CREATININE FOR GFR 1.23 MG/DL (0.55-1.30); FREE T4 0.93 NG/DL (0.76-1.46); GLOMERULAR FILTRATION RATE 48.3 (>51); GLUCOSE, FASTING 211 MG/DL (70-100); POTASSIUM SERUM 5.2 MEQ/L (3.5-5.1); SODIUM LEVEL 127 MEQ/L (136-145); TOTAL PROTEIN 6.2 GM/DL (6.4-8.2)
[2022-01-25] MEDS ORDERED: MIDAZOLAM INJ 2MG/2ML VIAL (J2250 PER 1MG) IV STA (19:53)
[2022-01-25] MEDS ORDERED: MIDAZOLAM INJ 2MG/2ML VIAL (J2250 PER 1MG) IV ONE ×2 (20:55→23:00)
[2022-01-26] MEDS ORDERED: MIDAZOLAM INJ 2MG/2ML VIAL (J2250 PER 1MG) IV STA (00:07)
[2022-01-26] MEDS ORDERED: LORazepam 2 MG/ML VIAL IV STA (01:46)
[2022-01-26] MEDS ORDERED: LORazepam 2 MG/ML VIAL As Ordered ONE (01:49)
[2022-01-26] MEDS ORDERED: levETIRAcetam INJection 1,500 MG in D5W 100 ML IV ONE ×2 (02:00→02:04)
[2022-01-26] MEDS ORDERED: NS 1,000 ML IV ONE (02:00)
[2022-01-26 02:42] LABS: RSV AMPLIFICATION NEGATIVE (NEGATIVE)
[2022-01-26] MEDS ORDERED: GLUCOSE 4GM CHEW TABLET PO PRN (03:15)
[2022-01-26] MEDS ORDERED: DEXTROSE 50% 50 ML SYRINGE IV PRN (03:15)
[2022-01-26] MEDS ORDERED: GLUCAGON INJ 1MG VIAL SC PRN (03:15)
[2022-01-26 05:36] LABS: SQUAMOUS EPITHELIAL CELL URINE SMALL AMOUNT /hpf (SMALL AMT)
[2022-01-26 05:40] LABS: BACTERIA, URINE LARGE AMOUNT; HYALINE CAST, URINE NONE SEEN /lpf (0-1)
[2022-01-26 05:41] LABS: AMORPHOUS SEDIMENT, URINE MOD AMOUNT (NEGATIVE)
[2022-01-26] MEDS: INSULIN LISPRO (NovoLOG) PER UNIT SC SCH ×4 (06:00→23:03)
[2022-01-26 06:20] LABS: AMPHETAMINES LEVEL URINE NEGATIVE (NEGATIVE); BARBITURATES URINE NEGATIVE (NEGATIVE); BENZODIAZEPINES URINE POSITIVE (NEGATIVE); CANNABINOIDS URINE NEGATIVE (NEGATIVE); COCAINE METABOLITE URINE NEGATIVE (NEGATIVE); METHADONE URINE NEGATIVE (NEGATIVE); OPIATES URINE NEGATIVE (NEGATIVE); PHENCYCLIDINE URINE NEGATIVE (NEGATIVE)
[2022-01-26] MEDS ORDERED: LOPE2TAB12 PO (06:36)
[2022-01-26] MEDS ORDERED: ALLO100T PO (06:36)
[2022-01-26] MEDS ORDERED: CLON0.5T2 PO (06:36)
[2022-01-26] MEDS ORDERED: LOSA25TA13 PO (06:36)
[2022-01-26] MEDS ORDERED: ALBU8.5H INH (06:36)
[2022-01-26] MEDS ORDERED: BACITAB PO (06:36)
[2022-01-26] MEDS ORDERED: HYDR12CA PO (06:36)
[2022-01-26] MEDS ORDERED: FURO20TA2 PO (06:36)
[2022-01-26] MEDS ORDERED: HOME MED LIST COMPLETE! XX SCH (06:40)
[2022-01-26] MEDS: PANTOPRAZOLE 40MG VIAL IV SCH (08:39)
[2022-01-26] MEDS: levETIRAcetam INJection 500 MG in D5W MINI-BAG PLUS 100 ML IV SCH ×2 (08:41→21:49)
[2022-01-26 09:53] LABS: HEMATOCRIT 36.9 % (36.0-47.0); HEMOGLOBIN 12.5 g/dl (12.0-15.5); MEAN CORPUSCULAR HEMOGLOBIN 30.6 pg (27.0-33.0); MEAN CORPUSCULAR HGB CONC 33.9 g/dl (32.0-36.5); MEAN CORPUSCULAR VOLUME 90.4 fl (80.0-96.0); PLATELET COUNT, AUTOMATED 262 10^3/uL (150-450); RED BLOOD COUNT 4.08 10^6/uL (4.00-5.40); WHITE BLOOD COUNT 18.5 10^3/uL (4.0-10.0)
[2022-01-26] MEDS: cefTRIAXone SOD 1 GM in D5W MINI-BAG PLUS 50 ML IV SCH (10:46)
[2022-01-26] MEDS: LR 1,000 ML IV SCH ×2 (11:20→22:52)
[2022-01-26] MEDS: HEPARIN SOD (PORCINE) 5000UNITS/ML 1ML VIAL/SYRINGE SC SCH ×2 (14:06→22:55)
[2022-01-26] MEDS ORDERED: flumazeniL 0.5 MG/5 ML VIAL IV STA (16:28)
[2022-01-26] MEDS: LABETALOL 100MG/20ML VIAL IV PRN (16:52)
[2022-01-26 17:37] LABS: CALCIUM LEVEL 9.1 MG/DL (8.5-10.1); CREATININE FOR GFR 1.22 MG/DL (0.55-1.30); GLOMERULAR FILTRATION RATE 48.7 (>51); POTASSIUM SERUM 5.1 MEQ/L (3.5-5.1)
[2022-01-26 22:15] VITALS: BP 144/88
[2022-01-27] VITALS (23 sets, daily range): BP systolic 117–159; BP diastolic 56–97; O2SAT 87–98
[2022-01-27 05:13] LABS: HEMATOCRIT 33.3 % (36.0-47.0); HEMOGLOBIN 11.4 g/dl (12.0-15.5); MEAN CORPUSCULAR HGB CONC 34.2 g/dl (32.0-36.5); MEAN CORPUSCULAR VOLUME 90.5 fl (80.0-96.0); PLATELET COUNT, AUTOMATED 249 10^3/uL (150-450); RED BLOOD COUNT 3.68 10^6/uL (4.00-5.40)
[2022-01-27 05:50] LABS: CALCIUM LEVEL 9.2 MG/DL (8.5-10.1); CREATININE FOR GFR 1.27 MG/DL (0.55-1.30); GLOMERULAR FILTRATION RATE 46.5 (>51); POTASSIUM SERUM 4.8 MEQ/L (3.5-5.1)
[2022-01-27] MEDS: INSULIN LISPRO (NovoLOG) PER UNIT SC SCH ×4 (06:19→23:57)
[2022-01-27] MEDS: HEPARIN SOD (PORCINE) 5000UNITS/ML 1ML VIAL/SYRINGE SC SCH ×3 (06:19→20:41)
[2022-01-27] MEDS: PANTOPRAZOLE 40MG VIAL IV SCH (09:31)
[2022-01-27] MEDS: levETIRAcetam INJection 500 MG in D5W MINI-BAG PLUS 100 ML IV SCH ×2 (09:32→20:41)
[2022-01-27] MEDS: cefTRIAXone SOD 1 GM in D5W MINI-BAG PLUS 50 ML IV SCH (10:07)
[2022-01-27] MEDS: LR 1,000 ML IV SCH (12:05)
[2022-01-27 13:38] LABS: OSMOLALITY URINE 339 MOSM/KG (50-1400)
[2022-01-27 13:51] LABS: SODIUM,RANDOM URINE 38 MEQ/L
[2022-01-28] VITALS (9 sets, daily range): BP systolic 138–190; BP diastolic 65–95
[2022-01-28] MEDS: LR 1,000 ML IV SCH (04:01)
[2022-01-28] MEDS: INSULIN LISPRO (NovoLOG) PER UNIT SC SCH ×4 (06:00→19:44)
[2022-01-28] MEDS: HEPARIN SOD (PORCINE) 5000UNITS/ML 1ML VIAL/SYRINGE SC SCH ×3 (06:02→20:09)
[2022-01-28] MEDS: PANTOPRAZOLE 40MG VIAL IV SCH (08:47)
[2022-01-28] MEDS: levETIRAcetam INJection 500 MG in D5W MINI-BAG PLUS 100 ML IV SCH (08:47)
[2022-01-28] MEDS: cefTRIAXone SOD 1 GM in D5W MINI-BAG PLUS 50 ML IV SCH (09:54)
[2022-01-28] MEDS ORDERED: ALBUTEROL 90 MCG/ACT 8GM HFA INHALER INH PRN (11:00)
[2022-01-28 11:29] LABS: HEMATOCRIT 30.5 % (36.0-47.0); HEMOGLOBIN 10.5 g/dl (12.0-15.5); MEAN CORPUSCULAR HEMOGLOBIN 31.5 pg (27.0-33.0); MEAN CORPUSCULAR HGB CONC 34.4 g/dl (32.0-36.5); MEAN CORPUSCULAR VOLUME 91.6 fl (80.0-96.0); PLATELET COUNT, AUTOMATED 204 10^3/uL (150-450); RED BLOOD COUNT 3.33 10^6/uL (4.00-5.40); WHITE BLOOD COUNT 8.4 10^3/uL (4.0-10.0)
[2022-01-28] MEDS: ATORVASTATIN 10 MG TAB PO SCH (11:36)
[2022-01-28] MEDS: allopurinoL 100 MG TAB PO SCH (11:36)
[2022-01-28] MEDS: FAMOTIDINE 20 MG TAB PO SCH (11:37)
[2022-01-28] MEDS: ASPIRIN 81MG ENTERIC TABLET PO SCH (12:04)
[2022-01-28] MEDS: FERROUS GLUCONATE 324 MG TAB PO SCH (12:04)
[2022-01-28] MEDS: LOSARTAN 25 MG TAB PO SCH (12:05)
[2022-01-28 12:13] LABS: BLOOD UREA NITROGEN 18 MG/DL (7-18); CARBON DIOXIDE LEVEL 25 MEQ/L (21-32); CHLORIDE LEVEL 107 MEQ/L (98-107); CREATININE FOR GFR 0.94 MG/DL (0.55-1.30); GLOMERULAR FILTRATION RATE > 60.0 (>51); GLUCOSE, FASTING 172 MG/DL (70-100); POTASSIUM SERUM 4.6 MEQ/L (3.5-5.1); SODIUM LEVEL 138 MEQ/L (136-145)
[2022-01-28] MEDS: MONTELUKAST 10 MG TAB PO SCH (20:09)
[2022-01-28] MEDS: LABETALOL 100MG/20ML VIAL IV PRN (20:09)
[2022-01-28] MEDS: carBAMazepine 100MG 5ML SUSP ORAL SYRINGE *DRAW UP EXACT DOSE PO SCH (20:09)
[2022-01-28] MEDS: QUEtiapine FUMARATE 25 MG TAB PO SCH (20:09)
[2022-01-28] MEDS ORDERED: carBAMazepine 100MG *1/2* TABLET PO SCH (21:00)
[2022-01-28] MEDS ORDERED: FAMOTIDINE 20 MG TAB PO SCH (21:00)
[2022-01-28] MEDS ORDERED: carBAMazepine 200MG TABLET PO SCH (21:00)
[2022-01-29] VITALS: BP 167/68
[2022-01-29 04:00] VITALS: BP 165/72
[2022-01-29 04:17] VITALS: BP 154/68
[2022-01-29] MEDS: HEPARIN SOD (PORCINE) 5000UNITS/ML 1ML VIAL/SYRINGE SC SCH ×3 (06:00→22:05)
[2022-01-29 06:04] LABS: HEMATOCRIT 29.4 % (36.0-47.0); HEMOGLOBIN 10.1 g/dl (12.0-15.5); MEAN CORPUSCULAR HEMOGLOBIN 31.4 pg (27.0-33.0); MEAN CORPUSCULAR HGB CONC 34.4 g/dl (32.0-36.5); MEAN CORPUSCULAR VOLUME 91.3 fl (80.0-96.0); PLATELET COUNT, AUTOMATED 210 10^3/uL (150-450); RED BLOOD COUNT 3.22 10^6/uL (4.00-5.40); WHITE BLOOD COUNT 8.2 10^3/uL (4.0-10.0)
[2022-01-29 07:03] LABS: CALCIUM LEVEL 9.4 MG/DL (8.5-10.1); CREATININE FOR GFR 1.05 MG/DL (0.55-1.30); GLOMERULAR FILTRATION RATE 57.9 (>51); POTASSIUM SERUM 4.1 MEQ/L (3.5-5.1)
[2022-01-29] MEDS: INSULIN LISPRO (NovoLOG) PER UNIT SC SCH ×4 (07:30→21:00)
[2022-01-29 07:52] VITALS: BP 146/62
[2022-01-29] MEDS: ASPIRIN 81MG ENTERIC TABLET PO SCH (08:33)
[2022-01-29] MEDS: ATORVASTATIN 10 MG TAB PO SCH (08:33)
[2022-01-29] MEDS: FERROUS GLUCONATE 324 MG TAB PO SCH (08:33)
[2022-01-29] MEDS: FAMOTIDINE 20 MG TAB PO SCH (08:33)
[2022-01-29] MEDS: LOSARTAN 25 MG TAB PO SCH (08:34)
[2022-01-29] MEDS: allopurinoL 100 MG TAB PO SCH (08:34)
[2022-01-29] MEDS: carBAMazepine 100MG 5ML SUSP ORAL SYRINGE *DRAW UP EXACT DOSE PO SCH ×2 (08:34→21:53)
[2022-01-29 11:25] VITALS: BP 141/60
[2022-01-29] MEDS: LIDOCAINE 5% (LIDODERM) PATCH TD SCH (17:21)
[2022-01-29 20:00] VITALS: BP 151/70
[2022-01-29] MEDS ORDERED: **NOTE PATIENT COMMENT** MISC XX SCH (21:00)
[2022-01-29] MEDS: MONTELUKAST 10 MG TAB PO SCH (21:53)
[2022-01-29] MEDS: QUEtiapine FUMARATE 25 MG TAB PO SCH (21:53)
[2022-01-29] MEDS: ACETAMINOPHEN 500 MG TAB PO PRN (22:04)
[2022-01-30 04:00] VITALS: BP 166/70
[2022-01-30] MEDS: HEPARIN SOD (PORCINE) 5000UNITS/ML 1ML VIAL/SYRINGE SC SCH ×2 (05:43→14:00)
[2022-01-30 05:59] LABS: HEMATOCRIT 29.3 % (36.0-47.0); HEMOGLOBIN 9.8 g/dl (12.0-15.5); MEAN CORPUSCULAR HEMOGLOBIN 30.7 pg (27.0-33.0); MEAN CORPUSCULAR HGB CONC 33.4 g/dl (32.0-36.5); MEAN CORPUSCULAR VOLUME 91.8 fl (80.0-96.0); PLATELET COUNT, AUTOMATED 220 10^3/uL (150-450); RED BLOOD COUNT 3.19 10^6/uL (4.00-5.40); WHITE BLOOD COUNT 6.8 10^3/uL (4.0-10.0)
[2022-01-30 06:37] LABS: CALCIUM LEVEL 9.1 MG/DL (8.5-10.1); CREATININE FOR GFR 1.16 MG/DL (0.55-1.30); GLOMERULAR FILTRATION RATE 51.6 (>51)
[2022-01-30 07:51] VITALS: BP 160/67
[2022-01-30] MEDS: LIDOCAINE 5% (LIDODERM) PATCH TD SCH (08:20)
[2022-01-30] MEDS: INSULIN LISPRO (NovoLOG) PER UNIT SC SCH ×2 (08:20→12:58)
[2022-01-30] MEDS: FAMOTIDINE 20 MG TAB PO SCH (08:21)
[2022-01-30] MEDS: ATORVASTATIN 10 MG TAB PO SCH (08:21)
[2022-01-30] MEDS: FERROUS GLUCONATE 324 MG TAB PO SCH (08:21)
[2022-01-30] MEDS: ASPIRIN 81MG ENTERIC TABLET PO SCH (08:21)
[2022-01-30] MEDS: carBAMazepine 100MG 5ML SUSP ORAL SYRINGE *DRAW UP EXACT DOSE PO SCH (08:21)
[2022-01-30] MEDS: allopurinoL 100 MG TAB PO SCH (08:21)
[2022-01-30 08:22] VITALS: BP 160/67
[2022-01-30] MEDS: LOSARTAN 25 MG TAB PO SCH (08:22)
[2022-01-30] MEDS ORDERED: LOSARTAN 25 MG TAB PO ONE (08:30)
[2022-01-30] MEDS: ACETAMINOPHEN 500 MG TAB PO PRN (10:02)
[2022-01-30] MEDS ORDERED: LOSA50TA28 PO (13:29)
[2022-01-30] MEDS ORDERED: AMLO10TA PO (13:29)
[2022-01-30] MEDS ORDERED: HYDR-3490 PO (13:29)
[2022-01-30] MEDS ORDERED: ASPI-551 PO (13:29)
[2022-01-30] MEDS ORDERED: CARB300C6 PO (13:29)
[2022-01-31] MEDS ORDERED: LOSARTAN 50MG TABLET PO SCH (09:00)
== END 2022-01-30 15:10 | disposition home or self-care (01) | DRG 425 ==
LOC: EDBD 17:27 → M ED 17:27 → M ED INP 01-26 03:48 → ENRESERV 01-26 21:28 → M PCU 01-26 22:18
PROVIDERS: ADMIT Family Medicine; ATTEND Family Medicine
DX: E87.1 Hypo-osmolality and hyponatremia (principal); G93.41 Metabolic encephalopathy; N17.9 Acute kidney failure, unspecified; N39.0 Urinary tract infection, site not specified; D72.829 Elevated white blood cell count, unspecified; G40.909 Epilepsy, unspecified, not intractable, without status epilepticus; N18.30 Chronic kidney disease, stage 3 unspecified; E11.22 Type 2 diabetes mellitus with diabetic chronic kidney disease; E11.42 Type 2 diabetes mellitus with diabetic polyneuropathy; K21.9 Gastro-esophageal reflux disease without esophagitis; I12.9 Hypertensive chronic kidney disease with stage 1 through stage 4 chronic kidney disease, or unspecified chronic kidney disease; E78.5 Hyperlipidemia, unspecified; J45.909 Unspecified asthma, uncomplicated; E55.9 Vitamin D deficiency, unspecified; F17.210 Nicotine dependence, cigarettes, uncomplicated; E87.6 Hypokalemia; E11.51 Type 2 diabetes mellitus with diabetic peripheral angiopathy without gangrene; I73.9 Peripheral vascular disease, unspecified; Z88.2 Allergy status to sulfonamides; Z88.1 Allergy status to other antibiotic agents; Z88.8 Allergy status to other drugs, medicaments and biological substances; Z79.4 Long term (current) use of insulin; Z79.82 Long term (current) use of aspirin; Z89.422 Acquired absence of other left toe(s); Z20.822 Contact with and (suspected) exposure to COVID-19; Z86.73 Personal history of transient ischemic attack (TIA), and cerebral infarction without residual deficits; Z79.899 Other long term (current) drug therapy

== ENCOUNTER → 2022-02-24 | Outpatient (CLI) | payer OTHER ==
[~2022-02-24] MED LIST changes: +ALBU8.5H INH; +AMLO10TA PO; +ASPI-551 PO; +BACITAB PO; +CARB300C6 PO; +CLON0.5T2 PO; +HYDR-3490 PO; +LOPE2TAB12 PO; +LOSA25TA13 PO; +LOSA50TA28 PO
[2022-02-24 14:34] LABS: BASO % 0.4 % (0.0-1.0); EOS # 0.2 10^3/uL (0.0-0.5); EOS % 2.4 % (0.0-3.0); HEMATOCRIT 23.4 % (36.0-47.0); HEMOGLOBIN 8.1 g/dl (12.0-15.5); LYMPH # 2.1 10^3/uL (1.5-5.0); LYMPH % 22.2 % (24.0-44.0); MEAN CORPUSCULAR HEMOGLOBIN 30.8 pg (27.0-33.0); MEAN CORPUSCULAR HGB CONC 34.6 g/dl (32.0-36.5); MONO # 0.6 10^3/uL (0.0-0.8); MONO % 6.4 % (2.0-8.0); NEUTROPHILS # 6.3 10^3/uL (1.5-8.5); PLATELET COUNT, AUTOMATED 332 10^3/uL (150-450); RED BLOOD COUNT 2.63 10^6/uL (4.00-5.40); WHITE BLOOD COUNT 9.3 10^3/uL (4.0-10.0)
[2022-02-24 15:13] LABS: ALBUMIN 2.4 GM/DL (3.2-5.2); BILIRUBIN,TOTAL 0.2 MG/DL (0.2-1.0); CALCIUM LEVEL 8.8 MG/DL (8.5-10.1); CREATININE FOR GFR 1.26 MG/DL (0.55-1.30); GLOMERULAR FILTRATION RATE 46.9 (>51); POTASSIUM SERUM 5.1 MEQ/L (3.5-5.1); TOTAL PROTEIN 5.6 GM/DL (6.4-8.2)
== END ==
LOC: M LAB 13:52
PROVIDERS: ATTEND Physician Assistant
DX: E87.1 Hypo-osmolality and hyponatremia (principal); D64.9 Anemia, unspecified

== ENCOUNTER → 2022-06-29 | Outpatient (CLI) | payer OTHER ==
[~2022-06-29] MED LIST changes: +CLOP75TA99 PO; -PLAV1TAB2 PO
[2022-06-29 16:03] LABS: PHENYTOIN (DILANTIN) 9.5 UG/ML (10.0-20.0)
[2022-06-29 16:05] LABS: ALBUMIN 3.1 G/DL (3.2-5.2); BILIRUBIN,TOTAL 0.4 MG/DL (0.3-1.2); CALCIUM LEVEL 8.5 MG/DL (8.5-10.1); CREATININE FOR GFR 1.77 MG/DL (0.55-1.30); GLOMERULAR FILTRATION RATE 31.7 (>51); POTASSIUM SERUM 5.5 MMOL/L (3.5-5.1); TOTAL PROTEIN 5.7 G/DL (5.7-8.2)
[2022-06-29 16:06] LABS: BASO # 0.1 10^3/uL (0.0-0.2); BASO % 1.2 % (0.0-1.0); EOS # 0.1 10^3/uL (0.0-0.5); EOS % 2.2 % (0.0-3.0); FOLATE 5.23 NG/ML (>5.4); HEMATOCRIT 30.2 % (36.0-47.0); HEMOGLOBIN 9.7 g/dl (12.0-15.5); LYMPH # 1.8 10^3/uL (1.5-5.0); LYMPH % 44.3 % (24.0-44.0); MEAN CORPUSCULAR HEMOGLOBIN 29.9 pg (27.0-33.0); MEAN CORPUSCULAR HGB CONC 32.1 g/dl (32.0-36.5); MEAN CORPUSCULAR VOLUME 93.2 fl (80.0-96.0); MONO # 0.4 10^3/uL (0.0-0.8); MONO % 10.8 % (2.0-8.0); NEUTROPHILS # 1.7 10^3/uL (1.5-8.5); NEUTROPHILS % 41.3 % (36.0-66.0); PLATELET COUNT, AUTOMATED 208 10^3/uL (150-450); RED BLOOD COUNT 3.24 10^6/uL (4.00-5.40); TOTAL 25(OH) VITAMIN D 118.1 NG/ML (20.0-100.0); WHITE BLOOD COUNT 4.1 10^3/uL (4.0-10.0)
== END ==
LOC: M WUC 09:30
PROVIDERS: ATTEND Psychiatry & Neurology Neurology
DX: R56.9 Unspecified convulsions (principal); E53.8 Deficiency of other specified B group vitamins; E51.9 Thiamine deficiency, unspecified; E53.1 Pyridoxine deficiency

== ENCOUNTER → 2022-06-29 | Outpatient (REF) | payer OTHER ==
[2022-06-29 17:15] LABS: ALBUMIN 3.1 G/DL (3.2-5.2); BILIRUBIN,TOTAL 0.4 MG/DL (0.3-1.2); CALCIUM LEVEL 8.8 MG/DL (8.5-10.1); CHOLESTEROL RISK RATIO 1.88 (<5); CREATININE FOR GFR 1.77 MG/DL (0.55-1.30); GLOMERULAR FILTRATION RATE 31.7 (>51); HDL CHOLESTEROL 53.5 MG/DL (>40); LDL CHOLESTEROL 32.3 MG/DL (<100); POTASSIUM SERUM 5.8 MMOL/L (3.5-5.1); TOTAL PROTEIN 5.7 G/DL (5.7-8.2)
[2022-06-29 17:17] LABS: HEMOGLOBIN 9.9 g/dl (12.0-15.5); MEAN CORPUSCULAR HEMOGLOBIN 29.7 pg (27.0-33.0); MEAN CORPUSCULAR HGB CONC 31.9 g/dl (32.0-36.5); MEAN CORPUSCULAR VOLUME 93.1 fl (80.0-96.0); PLATELET COUNT, AUTOMATED 213 10^3/uL (150-450); RED BLOOD COUNT 3.33 10^6/uL (4.00-5.40); THYROID STIMULATING HORMONE 5.421 uIU/ML (0.55-4.78); TOTAL 25(OH) VITAMIN D 114.6 NG/ML (20.0-100.0); WHITE BLOOD COUNT 3.9 10^3/uL (4.0-10.0)
[2022-06-29 18:22] LABS: HEMOGLOBIN A1c 5.3 % (4.0-6.0)
== END ==
LOC: M LAB REF 16:37
PROVIDERS: ATTEND Physician Assistant
DX: E11.65 Type 2 diabetes mellitus with hyperglycemia (principal); E55.9 Vitamin D deficiency, unspecified; E03.9 Hypothyroidism, unspecified; I10 Essential (primary) hypertension

== ENCOUNTER → 2022-06-29 | Outpatient (CLI) | payer OTHER ==
[2022-06-29 16:01] LABS: CALCIUM LEVEL 8.6 MG/DL (8.5-10.1); CREATININE FOR GFR 1.79 MG/DL (0.55-1.30); GLOMERULAR FILTRATION RATE 31.3 (>51); POTASSIUM SERUM 5.6 MMOL/L (3.5-5.1)
[2022-06-29 16:04] LABS: HEMATOCRIT 30.1 % (36.0-47.0); HEMOGLOBIN 9.8 g/dl (12.0-15.5); MEAN CORPUSCULAR HEMOGLOBIN 30.4 pg (27.0-33.0); MEAN CORPUSCULAR HGB CONC 32.6 g/dl (32.0-36.5); MEAN CORPUSCULAR VOLUME 93.5 fl (80.0-96.0); PLATELET COUNT, AUTOMATED 202 10^3/uL (150-450); RED BLOOD COUNT 3.22 10^6/uL (4.00-5.40); WHITE BLOOD COUNT 3.9 10^3/uL (4.0-10.0)
== END ==
LOC: M WUC 09:34
PROVIDERS: ATTEND Nurse Practitioner Family
DX: I50.32 Chronic diastolic (congestive) heart failure (principal)

== ENCOUNTER → 2022-07-13 | Outpatient (CLI) | payer OTHER ==
[2022-07-13 17:16] LABS: BASO # 0.1 10^3/uL (0.0-0.2); BASO % 1.5 % (0.0-1.0); EOS # 0.1 10^3/uL (0.0-0.5); EOS % 4.2 % (0.0-3.0); HEMATOCRIT 32.7 % (36.0-47.0); HEMOGLOBIN 10.3 g/dl (12.0-15.5); LYMPH # 1.7 10^3/uL (1.5-5.0); LYMPH % 52.1 % (24.0-44.0); MEAN CORPUSCULAR HEMOGLOBIN 29.9 pg (27.0-33.0); MEAN CORPUSCULAR HGB CONC 31.5 g/dl (32.0-36.5); MEAN CORPUSCULAR VOLUME 95.1 fl (80.0-96.0); MONO # 0.4 10^3/uL (0.0-0.8); MONO % 11.1 % (2.0-8.0); NEUTROPHILS % 31.1 % (36.0-66.0); PLATELET COUNT, AUTOMATED 188 10^3/uL (150-450); RED BLOOD COUNT 3.44 10^6/uL (4.00-5.40); WHITE BLOOD COUNT 3.3 10^3/uL (4.0-10.0)
[2022-07-13 17:25] LABS: CALCIUM LEVEL 8.5 MG/DL (8.5-10.1); CREATININE FOR GFR 1.6 MG/DL (0.55-1.30); GLOMERULAR FILTRATION RATE 35.6 (>51); POTASSIUM SERUM 5.1 MMOL/L (3.5-5.1)
== END ==
LOC: M WUC 13:47
PROVIDERS: ATTEND Physician Assistant
DX: I51.7 Cardiomegaly (principal); M41.85 Other forms of scoliosis, thoracolumbar region; I27.20 Pulmonary hypertension, unspecified

== ENCOUNTER → 2022-08-29 | Outpatient (CLI) | payer OTHER ==
[~2022-08-29] MED LIST changes: +RISATAB3 PO; +VITA100093
== END ==
LOC: M RAD 09:28
PROVIDERS: ATTEND Specialist
DX: R60.0 Localized edema (principal); D72.819 Decreased white blood cell count, unspecified

== ENCOUNTER → 2022-09-04 | Outpatient (REF) | payer OTHER ==
[2022-09-04 17:04] LABS: THYROID STIMULATING HORMONE 8.987 uIU/ML (0.55-4.78); TOTAL 25(OH) VITAMIN D 76.4 NG/ML (20.0-100.0)
== END ==
LOC: M LAB REF 16:23
PROVIDERS: ATTEND Physician Assistant
DX: E03.9 Hypothyroidism, unspecified (principal); E55.9 Vitamin D deficiency, unspecified

== ENCOUNTER 2022-12-03 08:22 | Inpatient (IN) | payer OTHER ==
[~2022-12-03] VITALS: Ht 154.9 cm; Wt 83.7 kg
[~2022-12-03 08:22] MED LIST changes: -VITA100093; +VITA100093 PO
[2022-12-03] MEDS ORDERED: POTASSIUM CHLORIDE 10MEQ SR TABLET PO ONE (09:10)
[2022-12-03] MEDS ORDERED: FUROSEMIDE 100MG/10ML VIAL IV ONE (09:10)
[2022-12-03 09:12] LABS: BASO # 0.1 10^3/uL (0.0-0.2); BASO % 1.3 % (0.0-1.0); EOS # 0.1 10^3/uL (0.0-0.5); EOS % 1.7 % (0.0-3.0); HEMATOCRIT 37.8 % (36.0-47.0); HEMOGLOBIN 12.1 g/dl (12.0-15.5); LYMPH # 1.2 10^3/uL (1.5-5.0); LYMPH % 25.4 % (24.0-44.0); MEAN CORPUSCULAR HEMOGLOBIN 29.6 pg (27.0-33.0); MEAN CORPUSCULAR VOLUME 92.4 fl (80.0-96.0); MONO # 0.5 10^3/uL (0.0-0.8); MONO % 9.9 % (2.0-8.0); NEUTROPHILS # 2.9 10^3/uL (1.5-8.5); NEUTROPHILS % 61.5 % (36.0-66.0); PLATELET COUNT, AUTOMATED 191 10^3/uL (150-450); RED BLOOD COUNT 4.09 10^6/uL (4.00-5.40); WHITE BLOOD COUNT 4.8 10^3/uL (4.0-10.0)
[2022-12-03] MEDS ORDERED: MED REC IN PROGRESS XX SCH (09:15)
[2022-12-03 09:16] LABS: INR 1.33; PROTHROMBIN TIME 16.7 SECONDS (12.5-14.5)
[2022-12-03 09:33] LABS: ALBUMIN 2.4 G/DL (3.2-5.2); BILIRUBIN,DIRECT 0.5 MG/DL (<0.4); BILIRUBIN,TOTAL 0.8 MG/DL (0.3-1.2); CALCIUM LEVEL 8.4 MG/DL (8.5-10.1); CK-MB VALUE MASS 4.6 NG/ML (<3.6); CREATININE FOR GFR 1.94 MG/DL (0.55-1.30); GLOMERULAR FILTRATION RATE 28.4 (>51); MB/CK RELATIVE INDEX 1.02 (< OR =4); POTASSIUM SERUM 3.5 MMOL/L (3.5-5.1); TOTAL PROTEIN 5.1 G/DL (5.7-8.2)
[2022-12-03 09:36] LABS: THYROID STIMULATING HORMONE 33.075 uIU/ML (0.55-4.78)
[2022-12-03] MEDS ORDERED: MED REC CURRENTLY UNOBTAINABLE XX SCH (09:40)
[2022-12-03 10:28] LABS: CK-MB VALUE MASS 4.5 NG/ML (<3.6); MB/CK RELATIVE INDEX 0.98 (< OR =4)
[2022-12-03 10:31] LABS: FREE T4 0.85 NG/DL (0.89-1.76)
[2022-12-03] MEDS ORDERED: GLUCAGON INJ 1MG VIAL SC PRN (11:25)
[2022-12-03] MEDS ORDERED: GLUCOSE 4GM CHEW TABLET PO PRN (11:25)
[2022-12-03] MEDS ORDERED: DEXTROSE 50% 50ML SYRINGE IV PRN (11:25)
[2022-12-03] MEDS: INSULIN LISPRO (NovoLOG) PER UNIT SC SCH ×4 (12:00→20:36)
[2022-12-03] MEDS ORDERED: NICOTINE 14 MG/24 HR TRANSDERMAL TD ONE (12:00)
[2022-12-03 12:15] VITALS: BP 118/57; TEMP 97.5; O2SAT 100
[2022-12-03 12:20] LABS: HEMOGLOBIN A1c 5.5 % (4.0-6.0)
[2022-12-03] MEDS ORDERED: LEVO25TA5 PO (15:51)
[2022-12-03] MEDS ORDERED: FURO80TA2 PO (15:51)
[2022-12-03] MEDS ORDERED: STEG5TAB PO (15:51)
[2022-12-03] MEDS ORDERED: PHEN100C PO ×2 (15:51)
[2022-12-03] MEDS ORDERED: METO1TAB32 PO (15:51)
[2022-12-03] MEDS ORDERED: LEVE500T5 PO (15:51)
[2022-12-03] MEDS ORDERED: ENTR1TAB PO (15:51)
[2022-12-03] MEDS ORDERED: FARX1TAB3 PO (15:51)
[2022-12-03] MEDS ORDERED: OMEP40CA5 PO (15:51)
[2022-12-03] MEDS ORDERED: MONT10TA97 PO (15:51)
[2022-12-03] MEDS ORDERED: HOME MED LIST COMPLETE! XX SCH (15:55)
[2022-12-03 15:57] VITALS: BP 107/65; TEMP 97.5; O2SAT 96
[2022-12-03 20:00] VITALS: BP 103/70; TEMP 96.3; O2SAT 97
[2022-12-03] MEDS: PHENYTOIN ER 100 MG CAP PO SCH (20:42)
[2022-12-03] MEDS: MONTELUKAST 10 MG TAB PO SCH (20:42)
[2022-12-03] MEDS: FAMOTIDINE 20 MG TAB PO SCH (20:42)
[2022-12-03] MEDS: HEPARIN SOD (PORCINE) 5000UNITS/ML 1ML VIAL/SYRINGE SQ SCH (20:43)
[2022-12-03] MEDS: ACETAMINOPHEN TAB 650MG DOSE (2X325MG) PO PRN (20:54)
[2022-12-04] VITALS (10 sets, daily range): BP systolic 88–113; BP diastolic 56–70; TEMP 96.1–97.5; O2SAT 95–100
[2022-12-04] MEDS: ACETAMINOPHEN TAB 650MG DOSE (2X325MG) PO PRN ×3 (01:17→23:37)
[2022-12-04] MEDS: ALBUTEROL 90 MCG/ACT 8GM HFA INHALER INH PRN ×2 (01:24→23:43)
[2022-12-04] MEDS ORDERED: FIORICET TAB PO ONE (01:30)
[2022-12-04] MEDS: LEVOTHYROXINE 25MCG TABLET (0.025MG) PO SCH (05:26)
[2022-12-04 05:42] LABS: HEMATOCRIT 35.7 % (36.0-47.0); HEMOGLOBIN 11.5 g/dl (12.0-15.5); MEAN CORPUSCULAR HEMOGLOBIN 29.4 pg (27.0-33.0); MEAN CORPUSCULAR HGB CONC 32.2 g/dl (32.0-36.5); MEAN CORPUSCULAR VOLUME 91.3 fl (80.0-96.0); PLATELET COUNT, AUTOMATED 189 10^3/uL (150-450); RED BLOOD COUNT 3.91 10^6/uL (4.00-5.40); WHITE BLOOD COUNT 4.7 10^3/uL (4.0-10.0)
[2022-12-04 06:09] LABS: GLOMERULAR FILTRATION RATE 27.4 (>51); MAGNESIUM LEVEL 1.4 MG/DL (1.8-2.4); POTASSIUM SERUM 4.2 MMOL/L (3.5-5.1)
[2022-12-04] MEDS: INSULIN LISPRO (NovoLOG) PER UNIT SC SCH ×4 (07:23→20:00)
[2022-12-04] MEDS ORDERED: DAPAGLIFLOZIN PROPANEDIOL 10MG TABLET (FARXIGA) PO SCH (09:00)
[2022-12-04] MEDS: PHENYTOIN ER 100 MG CAP PO SCH ×2 (09:26→20:02)
[2022-12-04] MEDS: HEPARIN SOD (PORCINE) 5000UNITS/ML 1ML VIAL/SYRINGE SQ SCH ×2 (09:26→20:02)
[2022-12-04] MEDS: FERROUS GLUCONATE 324 MG TAB PO SCH (09:27)
[2022-12-04] MEDS: FAMOTIDINE 20 MG TAB PO SCH (09:27)
[2022-12-04] MEDS: ASPIRIN 81MG ENTERIC TABLET PO SCH (09:27)
[2022-12-04] MEDS: ATORVASTATIN 10 MG TAB PO SCH (09:27)
[2022-12-04] MEDS: allopurinoL 100 MG TAB PO SCH (09:27)
[2022-12-04] MEDS: LACTOBACILLUS ACIDOPHILUS CAP (BACID) PO SCH (09:27)
[2022-12-04] MEDS: FUROSEMIDE 100MG/10ML VIAL IV SCH ×2 (12:26→19:00)
[2022-12-04 18:38] LABS: TOTAL PROTEIN,RANDOM URINE 27.4 MG/DL (0.0-14.0)
[2022-12-04 18:44] LABS: CREATININE,RANDOM URINE 48.5 MG/DL
[2022-12-04] MEDS: MONTELUKAST 10 MG TAB PO SCH (20:01)
[2022-12-04] MEDS: MAG SULF 1GM/100ML (MAG RUN) 1 GM in IV 1 EA IV SCH ×2 (21:08→22:21)
[2022-12-05] VITALS (7 sets, daily range): BP systolic 100–125; BP diastolic 56–73; TEMP 96–96.8; O2SAT 92–100
[2022-12-05] MEDS: FUROSEMIDE 100MG/10ML VIAL IV SCH ×3 (03:19→18:05)
[2022-12-05 05:22] LABS: HEMATOCRIT 39.2 % (36.0-47.0); HEMOGLOBIN 12.6 g/dl (12.0-15.5); MEAN CORPUSCULAR HEMOGLOBIN 29.1 pg (27.0-33.0); MEAN CORPUSCULAR HGB CONC 32.1 g/dl (32.0-36.5); MEAN CORPUSCULAR VOLUME 90.5 fl (80.0-96.0); PLATELET COUNT, AUTOMATED 197 10^3/uL (150-450); RED BLOOD COUNT 4.33 10^6/uL (4.00-5.40); WHITE BLOOD COUNT 5.3 10^3/uL (4.0-10.0)
[2022-12-05 05:42] LABS: PERCENT SATURATION 18.7 % (13.2-45.0)
[2022-12-05 05:43] LABS: CREATININE FOR GFR 1.86 MG/DL (0.55-1.30); GLOMERULAR FILTRATION RATE 29.8 (>51); MAGNESIUM LEVEL 1.6 MG/DL (1.8-2.4); POTASSIUM SERUM 3.8 MMOL/L (3.5-5.1)
[2022-12-05 05:44] LABS: FERRITIN 65.7 NG/ML (7.3-270.7)
[2022-12-05] MEDS: LEVOTHYROXINE 25MCG TABLET (0.025MG) PO SCH (05:49)
[2022-12-05] MEDS: INSULIN LISPRO (NovoLOG) PER UNIT SC SCH ×4 (07:26→20:22)
[2022-12-05] MEDS ORDERED: IPRATROPIUM 0.5MG/ALBUTEROL 2.5MG INH SOL UD 3ML (DUONEB) NEB PRN (07:50)
[2022-12-05 08:11] LABS: PHENYTOIN (DILANTIN) 4.4 ug/mL (10.0-20.0)
[2022-12-05] MEDS: IPRATROPIUM 0.5MG/ALBUTEROL 2.5MG INH SOL UD 3ML (DUONEB) NEB SCH ×5 (08:56→23:10)
[2022-12-05] MEDS: HEPARIN SOD (PORCINE) 5000UNITS/ML 1ML VIAL/SYRINGE SQ SCH ×2 (09:34→20:49)
[2022-12-05] MEDS: LACTOBACILLUS ACIDOPHILUS CAP (BACID) PO SCH (09:34)
[2022-12-05] MEDS: PHENYTOIN ER 100 MG CAP PO SCH ×2 (09:34→20:48)
[2022-12-05] MEDS: FAMOTIDINE 20 MG TAB PO SCH (09:35)
[2022-12-05] MEDS: allopurinoL 100 MG TAB PO SCH (09:35)
[2022-12-05] MEDS: ASPIRIN 81MG ENTERIC TABLET PO SCH (09:35)
[2022-12-05] MEDS: predniSONE 20 MG TAB PO SCH (09:35)
[2022-12-05] MEDS: ATORVASTATIN 10 MG TAB PO SCH (09:35)
[2022-12-05] MEDS: FERROUS GLUCONATE 324 MG TAB PO SCH (09:36)
[2022-12-05] MEDS ORDERED: SPIRONOLACTONE 50 MG TAB PO ONE (10:00)
[2022-12-05] MEDS: MAGNESIUM OXIDE 400MG TAB (MAG-OX) PO SCH ×2 (10:38→20:48)
[2022-12-05] MEDS ORDERED: FERRIC CARBOXYMALTOSE INJ 750 MG, VIAL MATE ADAPTER 1 EACH in NS 250 ML IV ONE (12:00)
[2022-12-05] MEDS: MONTELUKAST 10 MG TAB PO SCH (20:48)
[2022-12-06] VITALS (7 sets, daily range): BP systolic 100–119; BP diastolic 57–88; TEMP 97.3–98.3; O2SAT 95–99
[2022-12-06] MEDS: IPRATROPIUM 0.5MG/ALBUTEROL 2.5MG INH SOL UD 3ML (DUONEB) NEB SCH ×6 (03:08→23:14)
[2022-12-06] MEDS: FUROSEMIDE 100MG/10ML VIAL IV SCH ×3 (04:12→18:07)
[2022-12-06] MEDS: LEVOTHYROXINE 25MCG TABLET (0.025MG) PO SCH (05:35)
[2022-12-06 06:13] LABS: HEMATOCRIT 37.3 % (36.0-47.0); HEMOGLOBIN 12.1 g/dl (12.0-15.5); MEAN CORPUSCULAR HEMOGLOBIN 29.1 pg (27.0-33.0); MEAN CORPUSCULAR HGB CONC 32.4 g/dl (32.0-36.5); MEAN CORPUSCULAR VOLUME 89.7 fl (80.0-96.0); PLATELET COUNT, AUTOMATED 199 10^3/uL (150-450); RED BLOOD COUNT 4.16 10^6/uL (4.00-5.40); WHITE BLOOD COUNT 6.4 10^3/uL (4.0-10.0)
[2022-12-06 06:26] LABS: CALCIUM LEVEL 8.3 MG/DL (8.5-10.1); CREATININE FOR GFR 1.84 MG/DL (0.55-1.30); GLOMERULAR FILTRATION RATE 30.2 (>51); MAGNESIUM LEVEL 1.8 MG/DL (1.8-2.4); POTASSIUM SERUM 3.8 MMOL/L (3.5-5.1)
[2022-12-06] MEDS: INSULIN LISPRO (NovoLOG) PER UNIT SC SCH ×4 (07:30→20:48)
[2022-12-06] MEDS: HEPARIN SOD (PORCINE) 5000UNITS/ML 1ML VIAL/SYRINGE SQ SCH ×2 (09:03→20:48)
[2022-12-06] MEDS: predniSONE 20 MG TAB PO SCH (09:04)
[2022-12-06] MEDS: LACTOBACILLUS ACIDOPHILUS CAP (BACID) PO SCH (09:04)
[2022-12-06] MEDS: ASPIRIN 81MG ENTERIC TABLET PO SCH (09:04)
[2022-12-06] MEDS: ATORVASTATIN 10 MG TAB PO SCH (09:04)
[2022-12-06] MEDS: PHENYTOIN ER 100 MG CAP PO SCH ×2 (09:04→20:46)
[2022-12-06] MEDS: allopurinoL 100 MG TAB PO SCH (09:04)
[2022-12-06] MEDS: FAMOTIDINE 20 MG TAB PO SCH (09:04)
[2022-12-06] MEDS: MAGNESIUM OXIDE 400MG TAB (MAG-OX) PO SCH ×2 (09:04→20:46)
[2022-12-06] MEDS ORDERED: metOLazone 2.5 MG TAB PO ONE (09:30)
[2022-12-06] MEDS: POTASSIUM CHLORIDE 10MEQ SR TABLET PO SCH ×4 (10:53→20:46)
[2022-12-06] MEDS: MONTELUKAST 10 MG TAB PO SCH (20:46)
[2022-12-07] VITALS (7 sets, daily range): BP systolic 98–131; BP diastolic 55–78; PULSE 84–88; TEMP 97.4–98.3; O2SAT 92–99
[2022-12-07] MEDS: FUROSEMIDE 100MG/10ML VIAL IV SCH ×3 (02:29→18:18)
[2022-12-07] MEDS: IPRATROPIUM 0.5MG/ALBUTEROL 2.5MG INH SOL UD 3ML (DUONEB) NEB SCH ×5 (03:09→20:38)
[2022-12-07] MEDS: LEVOTHYROXINE 25MCG TABLET (0.025MG) PO SCH (05:32)
[2022-12-07 06:40] LABS: HEMATOCRIT 34.8 % (36.0-47.0); HEMOGLOBIN 11.4 g/dl (12.0-15.5); MEAN CORPUSCULAR HEMOGLOBIN 29.7 pg (27.0-33.0); MEAN CORPUSCULAR HGB CONC 32.8 g/dl (32.0-36.5); MEAN CORPUSCULAR VOLUME 90.6 fl (80.0-96.0); PLATELET COUNT, AUTOMATED 209 10^3/uL (150-450); RED BLOOD COUNT 3.84 10^6/uL (4.00-5.40); WHITE BLOOD COUNT 6.4 10^3/uL (4.0-10.0)
[2022-12-07 07:14] LABS: CALCIUM LEVEL 9.1 MG/DL (8.5-10.1); CREATININE FOR GFR 1.93 MG/DL (0.55-1.30); GLOMERULAR FILTRATION RATE 28.6 (>51); MAGNESIUM LEVEL 1.8 MG/DL (1.8-2.4); POTASSIUM SERUM 4.7 MMOL/L (3.5-5.1)
[2022-12-07] MEDS: INSULIN LISPRO (NovoLOG) PER UNIT SC SCH ×4 (07:30→20:21)
[2022-12-07] MEDS: PHENYTOIN ER 100 MG CAP PO SCH ×2 (08:34→20:29)
[2022-12-07] MEDS: predniSONE 20 MG TAB PO SCH (08:34)
[2022-12-07] MEDS: HEPARIN SOD (PORCINE) 5000UNITS/ML 1ML VIAL/SYRINGE SQ SCH (08:34)
[2022-12-07] MEDS: ATORVASTATIN 10 MG TAB PO SCH (08:34)
[2022-12-07] MEDS: ASPIRIN 81MG ENTERIC TABLET PO SCH (08:34)
[2022-12-07] MEDS: LACTOBACILLUS ACIDOPHILUS CAP (BACID) PO SCH (08:34)
[2022-12-07] MEDS: MAGNESIUM OXIDE 400MG TAB (MAG-OX) PO SCH ×2 (08:35→20:29)
[2022-12-07] MEDS: FAMOTIDINE 20 MG TAB PO SCH (08:35)
[2022-12-07] MEDS: allopurinoL 100 MG TAB PO SCH (08:35)
[2022-12-07] MEDS ORDERED: metOLazone 2.5 MG TAB PO ONE (09:30)
[2022-12-07] MEDS: PANTOPRAZOLE 40MG TAB (PROTONIX) PO SCH (10:37)
[2022-12-07] MEDS ORDERED: NITROGLYCERIN 0.4MG SUBL TABLET As Ordered ONE (10:37)
[2022-12-07] MEDS ORDERED: NITROGLYCERIN 0.4MG SUBL TABLET SL STA (10:38)
[2022-12-07] MEDS ORDERED: MAALOX 30 ML SUSP *UDC PO ONE (10:40)
[2022-12-07] MEDS ORDERED: MAALOX 30 ML SUSP *UDC PO PRN (10:40)
[2022-12-07] MEDS ORDERED: NITROGLYCERIN 0.4MG SUBL TABLET SL PRN (10:40)
[2022-12-07] MEDS ORDERED: SUCRALFATE SUSP 1GM/10ML UD PO ONE (10:40)
[2022-12-07] MEDS ORDERED: RANOLAZINE 500MG ER TAB PO SCH (10:40)
[2022-12-07] MEDS ORDERED: LIDOCAINE VISCOUS 2% SOLN 15ML UDC PO ONE (11:00)
[2022-12-07 11:32] LABS: CK-MB VALUE MASS 7.9 NG/ML (<3.6)
[2022-12-07 11:41] LABS: MB/CK RELATIVE INDEX 1.47 (< OR =4)
[2022-12-07] MEDS: SUCRALFATE SUSP 1GM/10ML UD PO SCH ×3 (11:52→20:29)
[2022-12-07] MEDS ORDERED: CLOPIDOGREL 75 MG TAB PO ONE (13:10)
[2022-12-07] MEDS: ENOXAPARIN 100MG/1ML SYRINGE (J1650 PER 10MG) SC SCH (15:15)
[2022-12-07 18:27] LABS: CK-MB VALUE MASS 6.7 NG/ML (<3.6)
[2022-12-07 18:29] LABS: MB/CK RELATIVE INDEX 1.39 (< OR =4)
[2022-12-07 18:55] LABS: MYOGLOBIN 1134.6 NG/ML (<110)
[2022-12-07] MEDS: MONTELUKAST 10 MG TAB PO SCH (20:29)
[2022-12-07] MEDS ORDERED: OMEPRAZOLE 20MG CAP PO ONE (20:35)
[2022-12-08] VITALS (8 sets, daily range): BP systolic 101–120; BP diastolic 51–74; TEMP 96.9–98.2; O2SAT 92–100
[2022-12-08] MEDS: IPRATROPIUM 0.5MG/ALBUTEROL 2.5MG INH SOL UD 3ML (DUONEB) NEB SCH ×7 (00:13→23:15)
[2022-12-08] MEDS: FUROSEMIDE 100MG/10ML VIAL IV SCH ×3 (02:12→18:12)
[2022-12-08] MEDS: ENOXAPARIN 100MG/1ML SYRINGE (J1650 PER 10MG) SC SCH ×2 (02:13→13:32)
[2022-12-08] MEDS: LEVOTHYROXINE 25MCG TABLET (0.025MG) PO SCH (05:11)
[2022-12-08] MEDS: INSULIN LISPRO (NovoLOG) PER UNIT SC SCH ×4 (07:18→20:25)
[2022-12-08] MEDS: SUCRALFATE SUSP 1GM/10ML UD PO SCH ×4 (07:30→20:24)
[2022-12-08 07:33] LABS: HEMATOCRIT 33.8 % (36.0-47.0); MEAN CORPUSCULAR HEMOGLOBIN 29.6 pg (27.0-33.0); MEAN CORPUSCULAR HGB CONC 32.5 g/dl (32.0-36.5); MEAN CORPUSCULAR VOLUME 90.9 fl (80.0-96.0); PLATELET COUNT, AUTOMATED 201 10^3/uL (150-450); RED BLOOD COUNT 3.72 10^6/uL (4.00-5.40); WHITE BLOOD COUNT 5.9 10^3/uL (4.0-10.0)
[2022-12-08 07:47] LABS: CALCIUM LEVEL 9.1 MG/DL (8.5-10.1); CREATININE FOR GFR 1.86 MG/DL (0.55-1.30); GLOMERULAR FILTRATION RATE 29.8 (>51); MAGNESIUM LEVEL 1.8 MG/DL (1.8-2.4); POTASSIUM SERUM 4.6 MMOL/L (3.5-5.1)
[2022-12-08] MEDS: LACTOBACILLUS ACIDOPHILUS CAP (BACID) PO SCH (08:02)
[2022-12-08] MEDS: PANTOPRAZOLE 40MG TAB (PROTONIX) PO SCH (08:02)
[2022-12-08] MEDS: ATORVASTATIN 10 MG TAB PO SCH (08:02)
[2022-12-08] MEDS: allopurinoL 100 MG TAB PO SCH (08:02)
[2022-12-08] MEDS: ASPIRIN 81MG ENTERIC TABLET PO SCH (08:02)
[2022-12-08] MEDS: PHENYTOIN ER 100 MG CAP PO SCH ×2 (08:02→20:25)
[2022-12-08] MEDS: CLOPIDOGREL 75 MG TAB PO SCH (08:03)
[2022-12-08] MEDS: MAGNESIUM OXIDE 400MG TAB (MAG-OX) PO SCH ×2 (08:03→20:25)
[2022-12-08] MEDS ORDERED: E-Z-GAS II EFFERVESCENT PACKET (SODIUM BICARB./CITRIC ACID/SIMETHICONE) As Ordered ONE (08:53)
[2022-12-08] MEDS ORDERED: E-Z-PAQUE 96% w/w SUSP 176GM BTL As Ordered ONE (08:53)
[2022-12-08] MEDS ORDERED: E-Z-HD 98% w/w 340GM SUSP BTL As Ordered ONE (08:54)
[2022-12-08 11:29] LABS: CK-MB VALUE MASS 3.6 NG/ML (<3.6)
[2022-12-08 11:30] LABS: MB/CK RELATIVE INDEX 1.31 (< OR =4)
[2022-12-08] MEDS: MONTELUKAST 10 MG TAB PO SCH (20:25)
[2022-12-09] VITALS (8 sets, daily range): BP systolic 101–122; BP diastolic 56–70; TEMP 97–97.9; O2SAT 95–99
[2022-12-09] MEDS: FUROSEMIDE 100MG/10ML VIAL IV SCH ×3 (02:14→18:52)
[2022-12-09] MEDS: ENOXAPARIN 100MG/1ML SYRINGE (J1650 PER 10MG) SC SCH ×2 (02:15→15:21)
[2022-12-09] MEDS: IPRATROPIUM 0.5MG/ALBUTEROL 2.5MG INH SOL UD 3ML (DUONEB) NEB SCH ×2 (04:00→07:55)
[2022-12-09] MEDS: LEVOTHYROXINE 25MCG TABLET (0.025MG) PO SCH (05:07)
[2022-12-09 05:42] LABS: HEMATOCRIT 37.7 % (36.0-47.0); MEAN CORPUSCULAR HEMOGLOBIN 29.1 pg (27.0-33.0); MEAN CORPUSCULAR HGB CONC 31.8 g/dl (32.0-36.5); MEAN CORPUSCULAR VOLUME 91.3 fl (80.0-96.0); PLATELET COUNT, AUTOMATED 211 10^3/uL (150-450); RED BLOOD COUNT 4.13 10^6/uL (4.00-5.40)
[2022-12-09 06:11] LABS: CALCIUM LEVEL 9.4 MG/DL (8.5-10.1); CREATININE FOR GFR 1.84 MG/DL (0.55-1.30); GLOMERULAR FILTRATION RATE 30.2 (>51); MAGNESIUM LEVEL 1.9 MG/DL (1.8-2.4); POTASSIUM SERUM 4.5 MMOL/L (3.5-5.1)
[2022-12-09] MEDS: INSULIN LISPRO (NovoLOG) PER UNIT SC SCH ×4 (07:30→20:17)
[2022-12-09] MEDS: allopurinoL 100 MG TAB PO SCH (08:51)
[2022-12-09] MEDS: PHENYTOIN ER 100 MG CAP PO SCH ×2 (08:51→20:17)
[2022-12-09] MEDS: ASPIRIN 81MG ENTERIC TABLET PO SCH (08:51)
[2022-12-09] MEDS: PANTOPRAZOLE 40MG TAB (PROTONIX) PO SCH (08:51)
[2022-12-09] MEDS: CLOPIDOGREL 75 MG TAB PO SCH (08:52)
[2022-12-09] MEDS: LACTOBACILLUS ACIDOPHILUS CAP (BACID) PO SCH (08:52)
[2022-12-09] MEDS: MAGNESIUM OXIDE 400MG TAB (MAG-OX) PO SCH ×2 (08:52→20:17)
[2022-12-09] MEDS: ATORVASTATIN 10 MG TAB PO SCH (08:52)
[2022-12-09] MEDS: SUCRALFATE SUSP 1GM/10ML UD PO SCH ×4 (08:55→20:17)
[2022-12-09 10:26] LABS: CK-MB VALUE MASS 3.5 NG/ML (<3.6); MB/CK RELATIVE INDEX 1.37 (< OR =4)
[2022-12-09] MEDS ORDERED: MAG SULF 1GM/100ML (MAG RUN) 1 GM in IV 1 EA IV ONE (13:00)
[2022-12-09] MEDS: MONTELUKAST 10 MG TAB PO SCH (20:17)
[2022-12-10] VITALS (7 sets, daily range): BP systolic 101–127; BP diastolic 50–77; TEMP 97.5–98.1; O2SAT 94–99
[2022-12-10] MEDS: ENOXAPARIN 100MG/1ML SYRINGE (J1650 PER 10MG) SC SCH ×2 (02:18→12:36)
[2022-12-10] MEDS: FUROSEMIDE 100MG/10ML VIAL IV SCH ×3 (02:18→18:49)
[2022-12-10] MEDS: LEVOTHYROXINE 25MCG TABLET (0.025MG) PO SCH (05:04)
[2022-12-10 05:10] LABS: HEMATOCRIT 35.9 % (36.0-47.0); HEMOGLOBIN 11.8 g/dl (12.0-15.5); MEAN CORPUSCULAR HEMOGLOBIN 30.1 pg (27.0-33.0); MEAN CORPUSCULAR HGB CONC 32.9 g/dl (32.0-36.5); MEAN CORPUSCULAR VOLUME 91.6 fl (80.0-96.0); PLATELET COUNT, AUTOMATED 182 10^3/uL (150-450); RED BLOOD COUNT 3.92 10^6/uL (4.00-5.40); WHITE BLOOD COUNT 4.4 10^3/uL (4.0-10.0)
[2022-12-10 05:23] LABS: CALCIUM LEVEL 8.8 MG/DL (8.5-10.1); CREATININE FOR GFR 1.79 MG/DL (0.55-1.30); GLOMERULAR FILTRATION RATE 31.2 (>51); MAGNESIUM LEVEL 2.1 MG/DL (1.8-2.4)
[2022-12-10] MEDS: INSULIN LISPRO (NovoLOG) PER UNIT SC SCH ×4 (07:30→20:27)
[2022-12-10] MEDS: SUCRALFATE SUSP 1GM/10ML UD PO SCH ×4 (08:52→20:30)
[2022-12-10] MEDS: ATORVASTATIN 10 MG TAB PO SCH (08:52)
[2022-12-10] MEDS: ACETAMINOPHEN TAB 650MG DOSE (2X325MG) PO PRN (08:52)
[2022-12-10] MEDS: PANTOPRAZOLE 40MG TAB (PROTONIX) PO SCH (08:53)
[2022-12-10] MEDS: LACTOBACILLUS ACIDOPHILUS CAP (BACID) PO SCH (08:53)
[2022-12-10] MEDS: MAGNESIUM OXIDE 400MG TAB (MAG-OX) PO SCH ×2 (08:53→20:31)
[2022-12-10] MEDS: ASPIRIN 81MG ENTERIC TABLET PO SCH (08:53)
[2022-12-10] MEDS: allopurinoL 100 MG TAB PO SCH (08:53)
[2022-12-10] MEDS: PHENYTOIN ER 100 MG CAP PO SCH ×2 (08:53→20:30)
[2022-12-10] MEDS: CLOPIDOGREL 75 MG TAB PO SCH (08:53)
[2022-12-10 08:56] LABS: CK-MB VALUE MASS 2.2 NG/ML (<3.6)
[2022-12-10 08:58] LABS: MB/CK RELATIVE INDEX 1.39 (< OR =4)
[2022-12-10] MEDS: MONTELUKAST 10 MG TAB PO SCH (20:30)
[2022-12-11] MEDS: ENOXAPARIN 100MG/1ML SYRINGE (J1650 PER 10MG) SC SCH ×2 (02:47→13:03)
[2022-12-11] MEDS: FUROSEMIDE 100MG/10ML VIAL IV SCH ×3 (02:48→18:04)
[2022-12-11 05:30] VITALS: BP 113/72; TEMP 97.9; O2SAT 98
[2022-12-11] MEDS: LEVOTHYROXINE 25MCG TABLET (0.025MG) PO SCH (05:35)
[2022-12-11 06:33] LABS: HEMATOCRIT 35.4 % (36.0-47.0); HEMOGLOBIN 11.4 g/dl (12.0-15.5); MEAN CORPUSCULAR HEMOGLOBIN 29.5 pg (27.0-33.0); MEAN CORPUSCULAR HGB CONC 32.2 g/dl (32.0-36.5); MEAN CORPUSCULAR VOLUME 91.7 fl (80.0-96.0); PLATELET COUNT, AUTOMATED 174 10^3/uL (150-450); RED BLOOD COUNT 3.86 10^6/uL (4.00-5.40); WHITE BLOOD COUNT 3.7 10^3/uL (4.0-10.0)
[2022-12-11 07:00] LABS: CK-MB VALUE MASS 1.9 NG/ML (<3.6)
[2022-12-11 07:04] LABS: CALCIUM LEVEL 7.9 MG/DL (8.5-10.1); CREATININE FOR GFR 1.72 MG/DL (0.55-1.30); GLOMERULAR FILTRATION RATE 32.7 (>51); MAGNESIUM LEVEL 1.9 MG/DL (1.8-2.4); POTASSIUM SERUM 4.1 MMOL/L (3.5-5.1)
[2022-12-11 07:06] LABS: MB/CK RELATIVE INDEX 1.33 (< OR =4)
[2022-12-11] MEDS: INSULIN LISPRO (NovoLOG) PER UNIT SC SCH ×5 (07:30→21:00)
[2022-12-11] MEDS: SUCRALFATE SUSP 1GM/10ML UD PO SCH ×4 (09:15→20:55)
[2022-12-11] MEDS: PANTOPRAZOLE 40MG TAB (PROTONIX) PO SCH (09:16)
[2022-12-11] MEDS: ASPIRIN 81MG ENTERIC TABLET PO SCH (09:16)
[2022-12-11] MEDS: PHENYTOIN ER 100 MG CAP PO SCH ×2 (09:16→20:55)
[2022-12-11] MEDS: ATORVASTATIN 10 MG TAB PO SCH (09:16)
[2022-12-11] MEDS: LACTOBACILLUS ACIDOPHILUS CAP (BACID) PO SCH (09:16)
[2022-12-11] MEDS: MAGNESIUM OXIDE 400MG TAB (MAG-OX) PO SCH ×2 (09:16→20:55)
[2022-12-11] MEDS: allopurinoL 100 MG TAB PO SCH (09:16)
[2022-12-11] MEDS: CLOPIDOGREL 75 MG TAB PO SCH (09:16)
[2022-12-11 14:00] VITALS: BP 111/73; TEMP 97.7; O2SAT 99
[2022-12-11] MEDS: MONTELUKAST 10 MG TAB PO SCH (20:55)
[2022-12-11 21:06] VITALS: BP 111/72; TEMP 97.9; O2SAT 100
[2022-12-12] MEDS: FUROSEMIDE 100MG/10ML VIAL IV SCH (02:26)
[2022-12-12] MEDS: ENOXAPARIN 100MG/1ML SYRINGE (J1650 PER 10MG) SC SCH (02:26)
[2022-12-12] MEDS: LEVOTHYROXINE 25MCG TABLET (0.025MG) PO SCH (05:40)
[2022-12-12 05:57] VITALS: BP 109/71; TEMP 97.5; O2SAT 97
[2022-12-12 06:13] LABS: HEMATOCRIT 36.6 % (36.0-47.0); HEMOGLOBIN 11.7 g/dl (12.0-15.5); MEAN CORPUSCULAR HEMOGLOBIN 29.3 pg (27.0-33.0); MEAN CORPUSCULAR VOLUME 91.7 fl (80.0-96.0); PLATELET COUNT, AUTOMATED 169 10^3/uL (150-450); RED BLOOD COUNT 3.99 10^6/uL (4.00-5.40); WHITE BLOOD COUNT 4.3 10^3/uL (4.0-10.0)
[2022-12-12 06:38] LABS: CK-MB VALUE MASS 2.5 NG/ML (<3.6)
[2022-12-12 06:42] LABS: CALCIUM LEVEL 7.9 MG/DL (8.5-10.1); CREATININE FOR GFR 1.56 MG/DL (0.55-1.30); GLOMERULAR FILTRATION RATE 36.5 (>51); MAGNESIUM LEVEL 1.8 MG/DL (1.8-2.4); POTASSIUM SERUM 3.7 MMOL/L (3.5-5.1)
[2022-12-12 06:45] LABS: MB/CK RELATIVE INDEX 1.65 (< OR =4)
[2022-12-12] MEDS: INSULIN LISPRO (NovoLOG) PER UNIT SC SCH ×4 (08:05→20:46)
[2022-12-12] MEDS: SUCRALFATE SUSP 1GM/10ML UD PO SCH ×4 (08:47→22:27)
[2022-12-12] MEDS: PANTOPRAZOLE 40MG TAB (PROTONIX) PO SCH (08:47)
[2022-12-12] MEDS: PHENYTOIN ER 100 MG CAP PO SCH ×2 (08:47→22:28)
[2022-12-12] MEDS: ATORVASTATIN 10 MG TAB PO SCH (08:48)
[2022-12-12] MEDS: CLOPIDOGREL 75 MG TAB PO SCH (08:48)
[2022-12-12] MEDS: allopurinoL 100 MG TAB PO SCH (08:48)
[2022-12-12] MEDS: MAGNESIUM OXIDE 400MG TAB (MAG-OX) PO SCH ×2 (08:48→22:27)
[2022-12-12] MEDS: ASPIRIN 81MG ENTERIC TABLET PO SCH (08:48)
[2022-12-12] MEDS: LACTOBACILLUS ACIDOPHILUS CAP (BACID) PO SCH (08:48)
[2022-12-12] MEDS ORDERED: POTASSIUM CHLORIDE 10MEQ SR TABLET PO ONE (11:20)
[2022-12-12] MEDS: levETIRAcetam 250MG TABLET (KEPPRA) PO SCH ×2 (12:08→22:28)
[2022-12-12 14:00] VITALS: BP 109/71; TEMP 97.7; O2SAT 99
[2022-12-12] MEDS: HEPARIN SOD (PORCINE) 5000UNITS/ML 1ML VIAL/SYRINGE SQ SCH ×2 (14:57→22:27)
[2022-12-12] MEDS: FUROSEMIDE injection 250 MG in D5W 225 ML IV SCH (14:57)
[2022-12-12 20:00] VITALS: BP 105/67; TEMP 97.5; O2SAT 100
[2022-12-12 21:00] VITALS: BP 105/67
[2022-12-12] MEDS ORDERED: METOPROLOL SUCC *XL* 12.5MG PER 1/2 TAB (TopROL *XL*) PO SCH (21:00)
[2022-12-12] MEDS: MONTELUKAST 10 MG TAB PO SCH (22:27)
[2022-12-13] MEDS: FUROSEMIDE injection 250 MG in D5W 225 ML IV SCH ×2 (02:46→14:08)
[2022-12-13] MEDS: HEPARIN SOD (PORCINE) 5000UNITS/ML 1ML VIAL/SYRINGE SQ SCH ×2 (05:46→13:56)
[2022-12-13 06:00] VITALS: BP 102/65; TEMP 97.5; O2SAT 97
[2022-12-13] MEDS ORDERED: LEVOTHYROXINE 37.5MCG PER 1/2TAB (0.0375MG) PO SCH (06:00)
[2022-12-13 06:06] LABS: HEMATOCRIT 36.2 % (36.0-47.0); HEMOGLOBIN 11.6 g/dl (12.0-15.5); MEAN CORPUSCULAR HEMOGLOBIN 29.6 pg (27.0-33.0); MEAN CORPUSCULAR VOLUME 92.3 fl (80.0-96.0); PLATELET COUNT, AUTOMATED 180 10^3/uL (150-450); RED BLOOD COUNT 3.92 10^6/uL (4.00-5.40); WHITE BLOOD COUNT 4.8 10^3/uL (4.0-10.0)
[2022-12-13 06:40] LABS: CALCIUM LEVEL 8.1 MG/DL (8.5-10.1); CREATININE FOR GFR 1.56 MG/DL (0.55-1.30); GLOMERULAR FILTRATION RATE 36.5 (>51); MAGNESIUM LEVEL 1.7 MG/DL (1.8-2.4); POTASSIUM SERUM 4.1 MMOL/L (3.5-5.1)
[2022-12-13] MEDS: INSULIN LISPRO (NovoLOG) PER UNIT SC SCH ×3 (07:30→16:56)
[2022-12-13] MEDS ORDERED: ATORVASTATIN 20 MG TAB PO SCH (09:00)
[2022-12-13] MEDS: SUCRALFATE SUSP 1GM/10ML UD PO SCH ×3 (09:15→18:38)
[2022-12-13] MEDS: MAGNESIUM OXIDE 400MG TAB (MAG-OX) PO SCH (09:15)
[2022-12-13] MEDS: LACTOBACILLUS ACIDOPHILUS CAP (BACID) PO SCH (09:16)
[2022-12-13] MEDS: PANTOPRAZOLE 40MG TAB (PROTONIX) PO SCH (09:16)
[2022-12-13] MEDS: allopurinoL 100 MG TAB PO SCH (09:16)
[2022-12-13] MEDS: CLOPIDOGREL 75 MG TAB PO SCH (09:16)
[2022-12-13] MEDS: levETIRAcetam 250MG TABLET (KEPPRA) PO SCH (09:16)
[2022-12-13] MEDS: PHENYTOIN ER 100 MG CAP PO SCH (09:16)
[2022-12-13] MEDS: ASPIRIN 81MG ENTERIC TABLET PO SCH (09:16)
[2022-12-13] MEDS: MAG SULF 1GM/100ML (MAG RUN) 1 GM in IV 1 EA IV SCH ×2 (12:26→13:55)
[2022-12-13 14:00] VITALS: BP 103/66; TEMP 97.5; O2SAT 97
[2022-12-13 20:00] VITALS: BP 107/71; TEMP 97.3; O2SAT 99
[2022-12-14] MEDS ORDERED: SPIRONOLACTONE 12.5MG PER 1/2 TABLET PO SCH (09:00)
== END 2022-12-13 22:21 | disposition left against medical advice (07) | DRG 194 ==
LOC: EDBD 08:22 → M ED 08:22 → M ED INP 11:00 → ENRESERV 11:31 → M PCU 12:12 → M MSPAV 12-10 05:34
PROVIDERS: ADMIT General Practice; ATTEND Internal Medicine
DX: I13.0 Hypertensive heart and chronic kidney disease with heart failure and stage 1 through stage 4 chronic kidney disease, or unspecified chronic kidney disease (principal); I21.A1 Myocardial infarction type 2; N18.4 Chronic kidney disease, stage 4 (severe); R18.8 Other ascites; N17.9 Acute kidney failure, unspecified; I27.20 Pulmonary hypertension, unspecified; E87.1 Hypo-osmolality and hyponatremia; E11.22 Type 2 diabetes mellitus with diabetic chronic kidney disease; E11.40 Type 2 diabetes mellitus with diabetic neuropathy, unspecified; I73.9 Peripheral vascular disease, unspecified; K74.60 Unspecified cirrhosis of liver; D63.1 Anemia in chronic kidney disease; E03.9 Hypothyroidism, unspecified; E55.9 Vitamin D deficiency, unspecified; E78.5 Hyperlipidemia, unspecified; F17.210 Nicotine dependence, cigarettes, uncomplicated; F39 Unspecified mood [affective] disorder; G40.909 Epilepsy, unspecified, not intractable, without status epilepticus; H40.9 Unspecified glaucoma; I25.10 Atherosclerotic heart disease of native coronary artery without angina pectoris; I34.0 Nonrheumatic mitral (valve) insufficiency; J44.9 Chronic obstructive pulmonary disease, unspecified; J45.909 Unspecified asthma, uncomplicated; K21.9 Gastro-esophageal reflux disease without esophagitis; M10.9 Gout, unspecified; Z79.4 Long term (current) use of insulin; Z88.8 Allergy status to other drugs, medicaments and biological substances; Z88.2 Allergy status to sulfonamides; Z79.899 Other long term (current) drug therapy; Z79.82 Long term (current) use of aspirin; Z89.422 Acquired absence of other left toe(s); I50.43 Acute on chronic combined systolic (congestive) and diastolic (congestive) heart failure

== ENCOUNTER 2023-01-03 06:20 | Inpatient (IN) | payer OTHER ==
[~2023-01-03] VITALS: TEMP 96.6; Ht 162.6 cm; Wt 92.9 kg
[~2023-01-03 06:20] MED LIST changes: +ENTR1TAB PO; +FARX1TAB3 PO; +FURO80TA2 PO; +LEVE500T5 PO; +LEVO25TA5 PO; +METO1TAB32 PO; +OMEP40CA5 PO; +PHEN100C PO; +STEG5TAB PO
[2023-01-03 07:41] LABS: HEMATOCRIT 29.1 % (36.0-47.0); HEMOGLOBIN 9.6 g/dl (12.0-15.5); MEAN CORPUSCULAR HEMOGLOBIN 30.3 pg (27.0-33.0); MEAN CORPUSCULAR VOLUME 91.8 fl (80.0-96.0); PLATELET COUNT, AUTOMATED 176 10^3/uL (150-450); RED BLOOD COUNT 3.17 10^6/uL (4.00-5.40); WHITE BLOOD COUNT 18.7 10^3/uL (4.0-10.0)
[2023-01-03 08:01] LABS: INR 1.58; PROTHROMBIN TIME 19.2 SECONDS (12.5-14.5)
[2023-01-03 08:02] LABS: PARTIAL THROMBOPLASTIN TIME 43.1 SECONDS (24.8-34.2)
[2023-01-03 08:14] LABS: ALBUMIN 1.8 G/DL (3.2-5.2); BILIRUBIN,DIRECT 1.2 MG/DL (<0.4); BILIRUBIN,TOTAL 1.4 MG/DL (0.3-1.2); CALCIUM LEVEL 8.2 MG/DL (8.5-10.1); CK-MB VALUE MASS 4.5 NG/ML (<3.6); CREATININE FOR GFR 2.57 MG/DL (0.55-1.30); GLOMERULAR FILTRATION RATE 20.5 (>51); TOTAL PROTEIN 4.6 G/DL (5.7-8.2)
[2023-01-03 08:23] LABS: EOSINOPHILS 1 % (0-3); LYMPHOCYTES 7 % (16-44); MONOCYTES 7 % (0-5); NEUTROPHILS 75 % (28-66)
[2023-01-03 08:24] LABS: HYPOCHROMASIA 1+; PLATELET ESTIMATE NORMAL (NORMAL); TOXIC VACUOLATION 1+
[2023-01-03 08:26] LABS: PROCALCITONIN 2.89 ng/ml
[2023-01-03 08:50] LABS: CK-MB VALUE MASS 4.8 NG/ML (<3.6)
[2023-01-03 08:58] LABS: C REACTIVE PROTEIN QUANTITATIV 32.9 MG/DL (<1.0); MB/CK RELATIVE INDEX 3.51 (< OR =4)
[2023-01-03 08:58] LABS: MB/CK RELATIVE INDEX 3.72 (< OR =4)
[2023-01-03 09:17] LABS: ERYTHROCYTE SEDIMENTATION RATE 27 mm/hr (0-30)
[2023-01-03] MEDS ORDERED: MORPHINE 2 MG/ML 1ML VIAL IV PRN (09:25)
[2023-01-03] MEDS ORDERED: PIPERACILLIN/TAZOBACTAM SOD 3.375 GM in D5W MINI-BAG PLUS 50 ML IV ONE (09:25)
[2023-01-03] MEDS ORDERED: VANCOMYCIN HCL 1,500 MG in NS 250 ML IV ONE (09:25)
[2023-01-03] MEDS ORDERED: NS 1,000 ML IV ONE (09:25)
[2023-01-03] MEDS ORDERED: GLUCAGON INJ 1MG VIAL SC PRN (09:40)
[2023-01-03] MEDS ORDERED: GLUCOSE 4GM CHEW TABLET PO PRN (09:40)
[2023-01-03] MEDS ORDERED: DEXTROSE 50% 50ML SYRINGE IV PRN (09:40)
[2023-01-03] MEDS ORDERED: VANCOMYCIN HCL 750 MG, VIAL MATE ADAPTER 1 EACH in D5W 250 ML IV ONE ×6 (10:00)
[2023-01-03 10:17] LABS: RSV AMPLIFICATION NEGATIVE (NEGATIVE)
[2023-01-03] MEDS ORDERED: MED REC IN PROGRESS XX SCH (11:15)
[2023-01-03] MEDS ORDERED: AMLO1TAB25 PO (11:44)
[2023-01-03] MEDS ORDERED: ALLO100T PO (11:44)
[2023-01-03] MEDS ORDERED: HOME MED LIST COMPLETE! XX SCH (11:55)
[2023-01-03 14:19] VITALS: BP 102/58; TEMP 96.7; O2SAT 96
[2023-01-03] MEDS ORDERED: PIPERACILLIN/TAZOBACTAM SOD 3.375 GM in D5W MINI-BAG PLUS 50 ML IV SCH (15:00)
[2023-01-03] MEDS: PIPERACILLIN/TAZOBACTAM SOD 2.25 GM in D5W MINI-BAG PLUS 50 ML IV SCH ×2 (15:58→22:52)
[2023-01-03] MEDS: INSULIN LISPRO (NovoLOG) PER UNIT SC SCH ×2 (17:06→21:00)
[2023-01-03] MEDS ORDERED: ALBUTEROL 90 MCG/ACT 8GM HFA INHALER INH PRN (18:45)
[2023-01-03] MEDS ORDERED: ALBUTEROL SULFATE 2.5MG/0.5ML INH NEB SOLN INH PRN (18:45)
[2023-01-03] MEDS ORDERED: clonazePAM 0.5 MG TAB PO PRN (18:45)
[2023-01-03 20:27] VITALS: BP 98/58; TEMP 96.3; O2SAT 100
[2023-01-03] MEDS: FAMOTIDINE 20 MG TAB PO SCH (21:41)
[2023-01-03] MEDS: MONTELUKAST 10 MG TAB PO SCH (21:41)
[2023-01-03] MEDS: PHENYTOIN ER 100 MG CAP PO SCH (21:41)
[2023-01-04] VITALS (28 sets, daily range): BP systolic 85–115; BP diastolic 50–68; TEMP 96.4–97.6; O2SAT 96–100
[2023-01-04] MEDS: PIPERACILLIN/TAZOBACTAM SOD 2.25 GM in D5W MINI-BAG PLUS 50 ML IV SCH ×4 (04:54→21:09)
[2023-01-04 05:41] LABS: BASO % 0.4 % (0.0-1.0); EOS # 0.2 10^3/uL (0.0-0.5); EOS % 1.6 % (0.0-3.0); HEMOGLOBIN 8.9 g/dl (12.0-15.5); LYMPH # 1.1 10^3/uL (1.5-5.0); LYMPH % 10.4 % (24.0-44.0); MEAN CORPUSCULAR HEMOGLOBIN 30.7 pg (27.0-33.0); MEAN CORPUSCULAR HGB CONC 34.2 g/dl (32.0-36.5); MEAN CORPUSCULAR VOLUME 89.7 fl (80.0-96.0); MONO # 0.8 10^3/uL (0.0-0.8); MONO % 7.3 % (2.0-8.0); NEUTROPHILS # 8.2 10^3/uL (1.5-8.5); NEUTROPHILS % 79.3 % (36.0-66.0); PLATELET COUNT, AUTOMATED 136 10^3/uL (150-450); WHITE BLOOD COUNT 10.3 10^3/uL (4.0-10.0)
[2023-01-04] MEDS: LEVOTHYROXINE 25MCG TABLET (0.025MG) PO SCH (05:57)
[2023-01-04 06:16] LABS: CALCIUM LEVEL 7.7 MG/DL (8.5-10.1); CREATININE FOR GFR 2.54 MG/DL (0.55-1.30); GLOMERULAR FILTRATION RATE 20.8 (>51); POTASSIUM SERUM 4.1 MMOL/L (3.5-5.1)
[2023-01-04] MEDS: INSULIN LISPRO (NovoLOG) PER UNIT SC SCH ×4 (07:30→20:18)
[2023-01-04] MEDS ORDERED: DAPAGLIFLOZIN PROPANEDIOL 10MG TABLET (FARXIGA) PO SCH (09:00)
[2023-01-04] MEDS ORDERED: METOPROLOL SUCC *XL* 25MG TAB (TopROL *XL*) PO SCH (09:00)
[2023-01-04] MEDS ORDERED: NS 500 ML IV ONE (09:10)
[2023-01-04] MEDS ORDERED: MIDODRINE 5 MG TAB PO ONE (09:30)
[2023-01-04] MEDS: FAMOTIDINE 20 MG TAB PO SCH ×2 (09:35→21:09)
[2023-01-04] MEDS: FERROUS GLUCONATE 324 MG TAB PO SCH (09:35)
[2023-01-04] MEDS: allopurinoL 100 MG TAB PO SCH (09:36)
[2023-01-04] MEDS: PHENYTOIN ER 100 MG CAP PO SCH ×2 (09:36→21:10)
[2023-01-04] MEDS: ATORVASTATIN 10 MG TAB PO SCH (09:36)
[2023-01-04] MEDS: VANCOMYCIN HCL 1,000 MG, VIAL MATE ADAPTER 1 EACH in D5W 250 ML IV SCH (09:37)
[2023-01-04] MEDS ORDERED: LR 1,000 ML IV ONE ×3 (09:50→13:55)
[2023-01-04 10:13] LABS: ABG BASE EXCESS -3.4 (-2.0-2.0); ABG HCO3 19.4 MMOL/L (22.0-26.0); ABG O2 SATURATION 98.4 % (95.0-99.0); ABG PARTIAL PRESSURE CO2 27.7 mmHg (35.0-45.0); ABG PARTIAL PRESSURE O2 121.6 mmHg (75.0-100.0); ABG STANDARD HCO3 21.6 MMOL/L. (22.0-26.0); ABG TOTAL CO2 20.2 MMOL/L (22.0-29.0); ABG pH (ARTERIAL) 7.463 UNITS (7.350-7.450)
[2023-01-04] MEDS: MONTELUKAST 10 MG TAB PO SCH (21:09)
[2023-01-05] VITALS (124 sets, daily range): BP systolic 48–182; BP diastolic 24–97; TEMP 96.8–98.1; O2SAT 29–100
[2023-01-05] MEDS ORDERED: ACETAMINOPHEN TAB 650MG DOSE (2X325MG) PO PRN (00:10)
[2023-01-05] MEDS ORDERED: NS 500 ML IV ONE (01:00)
[2023-01-05] MEDS: NOREPINEPHRINE 4MG IN D5 250ML 4 MG in IV 1 EA IV SCH ×2 (01:16)
[2023-01-05] MEDS: PIPERACILLIN/TAZOBACTAM SOD 2.25 GM in D5W MINI-BAG PLUS 50 ML IV SCH ×2 (04:14→09:20)
[2023-01-05 05:12] LABS: BASO % 0.4 % (0.0-1.0); EOS # 0.1 10^3/uL (0.0-0.5); EOS % 1.3 % (0.0-3.0); HEMATOCRIT 27.9 % (36.0-47.0); HEMOGLOBIN 9.6 g/dl (12.0-15.5); LYMPH # 1.2 10^3/uL (1.5-5.0); LYMPH % 15.4 % (24.0-44.0); MEAN CORPUSCULAR HEMOGLOBIN 30.4 pg (27.0-33.0); MEAN CORPUSCULAR HGB CONC 34.4 g/dl (32.0-36.5); MEAN CORPUSCULAR VOLUME 88.3 fl (80.0-96.0); MONO # 0.8 10^3/uL (0.0-0.8); NEUTROPHILS # 5.6 10^3/uL (1.5-8.5); PLATELET COUNT, AUTOMATED 148 10^3/uL (150-450); RED BLOOD COUNT 3.16 10^6/uL (4.00-5.40); WHITE BLOOD COUNT 7.9 10^3/uL (4.0-10.0)
[2023-01-05 05:37] LABS: CALCIUM LEVEL 7.5 MG/DL (8.5-10.1); CREATININE FOR GFR 2.33 MG/DL (0.55-1.30); POTASSIUM SERUM 3.9 MMOL/L (3.5-5.1)
[2023-01-05] MEDS: LEVOTHYROXINE 25MCG TABLET (0.025MG) PO SCH (06:06)
[2023-01-05] MEDS: INSULIN LISPRO (NovoLOG) PER UNIT SC SCH ×4 (07:30→21:00)
[2023-01-05] MEDS ORDERED: HEPARIN SOD (PORCINE) 5000UNITS/ML 1ML VIAL/SYRINGE SQ SCH (09:00)
[2023-01-05] MEDS: FAMOTIDINE 20 MG TAB PO SCH ×2 (09:20→21:00)
[2023-01-05] MEDS: allopurinoL 100 MG TAB PO SCH (09:20)
[2023-01-05] MEDS: ATORVASTATIN 10 MG TAB PO SCH (09:20)
[2023-01-05] MEDS: FERROUS GLUCONATE 324 MG TAB PO SCH (09:20)
[2023-01-05] MEDS: PHENYTOIN ER 100 MG CAP PO SCH ×2 (09:21→21:00)
[2023-01-05] MEDS: VANCOMYCIN HCL 1,000 MG, VIAL MATE ADAPTER 1 EACH in D5W 250 ML IV SCH (10:12)
[2023-01-05] MEDS: FUROSEMIDE 100MG/10ML VIAL IV SCH ×2 (10:13→19:47)
[2023-01-05] MEDS ORDERED: fentaNYL 100 MCG/2 ML INJECTION As Ordered ONE (16:34)
[2023-01-05] MEDS ORDERED: ETOMIDATE INJ 20MG/10ML VIAL As Ordered ONE (16:41)
[2023-01-05] MEDS ORDERED: ePHEDrine SULFATE 25 MG/5 ML(5MG/ML) SYRINGE As Ordered ONE (17:00)
[2023-01-05] MEDS ORDERED: ACETAMINOPHEN 1000MG 100ML IV BAG As Ordered ONE (17:58)
[2023-01-05] MEDS ORDERED: LR 1,000 ML IV SCH (18:15)
[2023-01-05] MEDS ORDERED: ONDANSETRON 4MG 2ML VIAL IV PRN (18:15)
[2023-01-05] MEDS ORDERED: oxyCODONE 5MG TAB PO PRN (18:15)
[2023-01-05] MEDS ORDERED: fentaNYL 100 MCG/2 ML INJECTION IV PRN (18:15)
[2023-01-05] MEDS ORDERED: HYDROMORPHONE HCL 0.5 MG/ 0.5 ML SYRINGE IV PRN (18:15)
[2023-01-05] MEDS: LIDOCAINE 5% (LIDODERM) PATCH TD SCH (21:00)
[2023-01-05] MEDS: MONTELUKAST 10 MG TAB PO SCH (21:00)
[2023-01-05] MEDS ORDERED: NITROGLYCERIN 0.3MG SUBL TAB SL STA (21:40)
[2023-01-05] MEDS: NITROGLYCERIN 0.4MG SUBL TABLET SL PRN ×3 (21:41→21:57)
[2023-01-05] MEDS ORDERED: AMIODARONE HCL 150 MG in IV 1 EA IV STA (21:43)
[2023-01-05] MEDS ORDERED: AMIODARONE HCL 150 MG/100 ML PREMIXED BAG (NEXTERONE) As Ordered ONE (21:44)
[2023-01-05] MEDS ORDERED: NITROGLYCERIN 0.3MG SUBL TAB SL PRN (21:45)
[2023-01-05] MEDS ORDERED: ASPIRIN 81MG CHEW TABLET PO ONE (21:50)
[2023-01-05] MEDS ORDERED: MORPHINE 2 MG/ML 1ML VIAL IV ONE (22:00)
[2023-01-05] MEDS ORDERED: MORPHINE 2 MG/ML 1ML VIAL As Ordered ONE (22:02)
[2023-01-05 22:09] LABS: CALCIUM LEVEL 7.5 MG/DL (8.5-10.1); CREATININE FOR GFR 2.13 MG/DL (0.55-1.30); GLOMERULAR FILTRATION RATE 25.5 (>51); MAGNESIUM LEVEL 1.3 MG/DL (1.8-2.4); POTASSIUM SERUM 4.1 MMOL/L (3.5-5.1)
[2023-01-05 22:13] LABS: FREE T4 0.69 NG/DL (0.89-1.76)
[2023-01-05] MEDS: VASOPRESSIN INJ 20 UNITS in NS 499 ML IV SCH (22:13)
[2023-01-05] MEDS ORDERED: NS 1,000 ML IV ONE (22:25)
[2023-01-05 22:27] LABS: VENOUS BASE EXCESS -10.4 (-2.0-2.0); VENOUS HCO3 16.7 MMOL/L (23.0-27.0); VENOUS O2 SATURATION 77.1 % (60.0-80.0); VENOUS PARTIAL PRESSURE CO2 41.3 mmHg (38.0-50.0); VENOUS PARTIAL PRESSURE O2 49.9 mmHg (30.0-50.0); VENOUS PH 7.225 UNITS (7.330-7.430); VENOUS STANDARD HCO3 15.9 MMOL/L
[2023-01-05 22:28] LABS: THYROID STIMULATING HORMONE 31.635 uIU/ML (0.55-4.78)
[2023-01-05 22:31] LABS: HEMATOCRIT 33.5 % (36.0-47.0); HEMOGLOBIN 11.2 g/dl (12.0-15.5); MEAN CORPUSCULAR HEMOGLOBIN 30.2 pg (27.0-33.0); MEAN CORPUSCULAR HGB CONC 33.4 g/dl (32.0-36.5); MEAN CORPUSCULAR VOLUME 90.3 fl (80.0-96.0); PLATELET COUNT, AUTOMATED 162 10^3/uL (150-450); RED BLOOD COUNT 3.71 10^6/uL (4.00-5.40); WHITE BLOOD COUNT 8.3 10^3/uL (4.0-10.0)
[2023-01-05] MEDS ORDERED: MIDAZOLAM INJ 2MG/2ML VIAL As Ordered ONE (22:56)
[2023-01-05] MEDS ORDERED: ESMOLOL HCL 2,000 MG in IV 1 EA IV SCH (23:05)
[2023-01-05] MEDS ORDERED: MIDAZOLAM 100MG/100ML-0.9%NACL 100 MG in IV 1 EA IV SCH (23:15)
[2023-01-05] MEDS ORDERED: AMIODARONE HCL 150 MG in IV 1 EA IV ONE (23:15)
[2023-01-05] MEDS ORDERED: HEPARIN SOD (PORCINE) 5000UNITS/ML 1ML VIAL/SYRINGE IV PRN (23:30)
[2023-01-05] MEDS ORDERED: HEPARIN DRIP 25,000 UNITS in IV 1 EA IV SCH (23:30)
[2023-01-05] MEDS ORDERED: LR 1,000 ML IV ONE (23:30)
[2023-01-05 23:36] LABS: ABG BASE EXCESS -16.1 (-2.0-2.0); ABG HCO3 10.5 MMOL/L (22.0-26.0); ABG O2 SATURATION 98.7 % (95.0-99.0); ABG PARTIAL PRESSURE CO2 27.5 mmHg (35.0-45.0); ABG PARTIAL PRESSURE O2 174.8 mmHg (75.0-100.0); ABG STANDARD HCO3 12.3 MMOL/L. (22.0-26.0); ABG TOTAL CO2 11.3 MMOL/L (22.0-29.0)
[2023-01-05 23:40] LABS: ABG pH (ARTERIAL) 7.199 UNITS (7.350-7.450)
[2023-01-05] MEDS ORDERED: HEPARIN 1,000UNITS/ML 10ML VIAL (FOR RADIOLOGY & DIALYSIS ONLY) IV STA (23:54)
[2023-01-06] VITALS (123 sets, daily range): BP systolic 79–203; BP diastolic 46–163; TEMP 91.4–97; O2SAT 36–100
[2023-01-06] MEDS ORDERED: EPINEPHrine HCL INJ 4 MG in D5W 996 ML IV SCH ×2
[2023-01-06] MEDS ORDERED: MIDAZOLAM INJ 2MG/2ML VIAL IV STA (00:01)
[2023-01-06] MEDS ORDERED: ETOMIDATE INJ 20MG/10ML VIAL IV STA (00:01)
[2023-01-06] MEDS ORDERED: LIDOCAINE 1% MDV 20ML VIAL As Ordered ONE (00:06)
[2023-01-06 00:25] LABS: ALBUMIN 1.2 G/DL (3.2-5.2); ALKALINE PHOSPHATASE 244 U/L (46-116); ALT/SGPT 19 U/L (7.0-40); AST/SGOT 23 U/L (<34); BILIRUBIN,DIRECT 0.7 MG/DL (<0.4); BILIRUBIN,TOTAL 0.9 MG/DL (0.3-1.2); PHOSPHORUS LEVEL 5.1 MG/DL (2.5-4.9); TOTAL PROTEIN 3.3 G/DL (5.7-8.2)
[2023-01-06 00:49] LABS: BLOOD UREA NITROGEN 38 MG/DL (9-23); CALCIUM LEVEL 5.8 MG/DL (8.5-10.1); CARBON DIOXIDE LEVEL < 10.0 MMOL/L (20-31); CHLORIDE LEVEL 104 MMOL/L (98-107); CREATININE FOR GFR 1.78 MG/DL (0.55-1.30); GLOMERULAR FILTRATION RATE 31.4 (>51); GLUCOSE, FASTING 126 MG/DL (60-100); MAGNESIUM LEVEL 1.2 MG/DL (1.8-2.4); POTASSIUM SERUM 3.4 MMOL/L (3.5-5.1); SODIUM LEVEL 132 MMOL/L (136-145)
[2023-01-06] MEDS: NOREPINEPHRINE 4MG IN D5 250ML 4 MG in IV 1 EA IV SCH ×8 (00:51→12:22)
[2023-01-06] MEDS ORDERED: FENTANYL DRIP LOCK BOX KEY 1 EACH XX PRN (01:05)
[2023-01-06] MEDS: AMIODARONE HCL 360 MG in IV 1 EA IV SCH ×4 (01:06→23:25)
[2023-01-06] MEDS: MAG SULF 1GM/100ML (MAG RUN) 1 GM in IV 1 EA IV SCH ×5 (01:06→15:47)
[2023-01-06] MEDS: fentaNYL CITRATE/NaCl 1,000 MCG in IV 1 EA IV SCH ×2 (02:00→11:11)
[2023-01-06] MEDS ORDERED: SODIUM CHLORIDE 0.9% INJ 10 ML SYR IV PRN (02:05)
[2023-01-06] MEDS ORDERED: HEPARIN 1,000UNITS/ML 10ML VIAL (FOR RADIOLOGY & DIALYSIS ONLY) IV PRN (02:05)
[2023-01-06 02:15] LABS: ABG HCO3 9.3 MMOL/L (22.0-26.0); ABG PARTIAL PRESSURE CO2 30.2 mmHg (35.0-45.0); ABG PARTIAL PRESSURE O2 56.5 mmHg (75.0-100.0); ABG STANDARD HCO3 10.2 MMOL/L. (22.0-26.0); ABG TOTAL CO2 10.2 MMOL/L (22.0-29.0)
[2023-01-06 02:19] LABS: ABG pH (ARTERIAL) 7.105 UNITS (7.350-7.450)
[2023-01-06 05:13] LABS: ABG BASE EXCESS -16.8 (-2.0-2.0); ABG HCO3 10.9 MMOL/L (22.0-26.0); ABG O2 SATURATION 87.9 % (95.0-99.0); ABG PARTIAL PRESSURE CO2 32.1 mmHg (35.0-45.0); ABG PARTIAL PRESSURE O2 66.6 mmHg (75.0-100.0); ABG STANDARD HCO3 11.8 MMOL/L. (22.0-26.0); ABG TOTAL CO2 11.8 MMOL/L (22.0-29.0)
[2023-01-06] MEDS: CALCIUM GLUCONATE 1,000 MG in D5W MINI-BAG PLUS 100 ML IV SCH ×4 (05:13→22:25)
[2023-01-06 05:15] LABS: ABG pH (ARTERIAL) 7.147 UNITS (7.350-7.450)
[2023-01-06] MEDS: VASOPRESSIN INJ 20 UNITS in NS 499 ML IV SCH (05:49)
[2023-01-06] MEDS: LEVOTHYROXINE 25MCG TABLET (0.025MG) PO SCH (06:00)
[2023-01-06 06:29] LABS: HEMATOCRIT 37.8 % (36.0-47.0); HEMOGLOBIN 12.4 g/dl (12.0-15.5); MEAN CORPUSCULAR HEMOGLOBIN 30.2 pg (27.0-33.0); MEAN CORPUSCULAR HGB CONC 32.8 g/dl (32.0-36.5); RED BLOOD COUNT 4.11 10^6/uL (4.00-5.40); WHITE BLOOD COUNT 11.3 10^3/uL (4.0-10.0)
[2023-01-06 07:00] LABS: ATYPICAL LYMPH 2 % (0-5); BASOPHILS 1 % (0-1); LYMPHOCYTES 18 % (16-44); METAMYELOCYTES 1 % (0-0); MONOCYTES 6 % (0-5); MYELOCYTES 1 % (0-0); NEUTROPHILS 64 % (28-66)
[2023-01-06 07:01] LABS: ANISOCYTOSIS 1+; PLATELET ESTIMATE INVALID (NORMAL); POLYCHROMASIA 1+
[2023-01-06 07:02] LABS: PLATELET CLUMPS MODERATE AMT
[2023-01-06 07:04] LABS: PROCALCITONIN 0.88 ng/ml
[2023-01-06 07:05] LABS: CALCIUM LEVEL 7.9 MG/DL (8.5-10.1); CREATININE FOR GFR 1.43 MG/DL (0.55-1.30); GLOMERULAR FILTRATION RATE 40.4 (>51); MAGNESIUM LEVEL 1.8 MG/DL (1.8-2.4); POTASSIUM SERUM 3.1 MMOL/L (3.5-5.1)
[2023-01-06] MEDS ORDERED: MAG SULF 1GM/100ML (MAG RUN) 1 GM in IV 1 EA IV ONE ×2 (07:30→20:00)
[2023-01-06] MEDS: INSULIN LISPRO (NovoLOG) PER UNIT SC SCH ×4 (07:30→23:54)
[2023-01-06] MEDS ORDERED: CALCIUM GLUCONATE 1,000 MG in D5W MINI-BAG PLUS 100 ML IV ONE ×2 (08:00→13:10)
[2023-01-06] MEDS: KCL 20MEQ IN 100ML SWI (KRUN) 20 MEQ in IV 1 EA IV SCH ×6 (08:30→10:50)
[2023-01-06] MEDS ORDERED: PHENYTOIN 100MG/2ML VIAL IV ONE ×3 (09:00→22:00)
[2023-01-06] MEDS: PHENYTOIN 100MG/2ML VIAL IV SCH ×2 (09:39→20:33)
[2023-01-06] MEDS: FAMOTIDINE 20 MG TAB PO SCH ×2 (09:40→20:33)
[2023-01-06] MEDS: allopurinoL 100 MG TAB PO SCH (09:40)
[2023-01-06] MEDS: FERROUS GLUCONATE 324 MG TAB PO SCH (09:41)
[2023-01-06] MEDS: ATORVASTATIN 10 MG TAB PO SCH (09:41)
[2023-01-06] MEDS: VANCOMYCIN HCL 1,000 MG, VIAL MATE ADAPTER 1 EACH in D5W 250 ML IV SCH (10:24)
[2023-01-06 12:15] LABS: ABG HCO3 17.9 MMOL/L (22.0-26.0); ABG O2 SATURATION 98.2 % (95.0-99.0); ABG PARTIAL PRESSURE CO2 24.3 mmHg (35.0-45.0); ABG PARTIAL PRESSURE O2 111.7 mmHg (75.0-100.0); ABG STANDARD HCO3 21.2 MMOL/L. (22.0-26.0); ABG TOTAL CO2 18.6 MMOL/L (22.0-29.0); ABG pH (ARTERIAL) 7.484 UNITS (7.350-7.450)
[2023-01-06 12:21] LABS: IONIZED CALCIUM 4.4 MG/DL (4.5-5.3)
[2023-01-06 12:25] LABS: HEMATOCRIT 33.1 % (36.0-47.0); HEMOGLOBIN 11.5 g/dl (12.0-15.5); MEAN CORPUSCULAR HEMOGLOBIN 30.2 pg (27.0-33.0); MEAN CORPUSCULAR HGB CONC 34.7 g/dl (32.0-36.5); MEAN CORPUSCULAR VOLUME 86.9 fl (80.0-96.0); RED BLOOD COUNT 3.81 10^6/uL (4.00-5.40); WHITE BLOOD COUNT 7.7 10^3/uL (4.0-10.0)
[2023-01-06 12:48] LABS: PLATELET COUNT, AUTOMATED 97 10^3/uL (150-450)
[2023-01-06 12:59] LABS: CALCIUM LEVEL 7.6 MG/DL (8.5-10.1); CREATININE FOR GFR 1.4 MG/DL (0.55-1.30); GLOMERULAR FILTRATION RATE 41.4 (>51); MAGNESIUM LEVEL 1.6 MG/DL (1.8-2.4); PHOSPHORUS LEVEL 2.9 MG/DL (2.5-4.9); POTASSIUM SERUM 4.2 MMOL/L (3.5-5.1)
[2023-01-06] MEDS ORDERED: HEPARIN 100 UNIT/ML *20ML* SYRINGE CRRT LOAD CRRT ONE (13:00)
[2023-01-06] MEDS: HEPARIN 100 UNIT/ML *20ML* SYRINGE CRRT INFUSION CRRT SCH ×2 (13:26→23:19)
[2023-01-06] MEDS ORDERED: PIPERACILLIN/TAZOBACTAM SOD 2.25 GM in D5W MINI-BAG PLUS 50 ML IV SCH (14:20)
[2023-01-06 14:55] LABS: ABG BASE EXCESS -4.3 (-2.0-2.0); ABG HCO3 18.9 MMOL/L (22.0-26.0); ABG O2 SATURATION 99.1 % (95.0-99.0); ABG PARTIAL PRESSURE CO2 29.2 mmHg (35.0-45.0); ABG PARTIAL PRESSURE O2 176.6 mmHg (75.0-100.0); ABG STANDARD HCO3 20.9 MMOL/L. (22.0-26.0); ABG TOTAL CO2 19.8 MMOL/L (22.0-29.0); ABG pH (ARTERIAL) 7.429 UNITS (7.350-7.450)
[2023-01-06] MEDS: PIPERACILLIN/TAZOBACTAM SOD 4.5 GM in D5W MINI-BAG PLUS 50 ML IV SCH (17:06)
[2023-01-06 18:07] LABS: IONIZED CALCIUM 4.2 MG/DL (4.5-5.3)
[2023-01-06 18:11] LABS: HEMATOCRIT 31.5 % (36.0-47.0); HEMOGLOBIN 11.2 g/dl (12.0-15.5); MEAN CORPUSCULAR HEMOGLOBIN 30.5 pg (27.0-33.0); MEAN CORPUSCULAR HGB CONC 35.6 g/dl (32.0-36.5); MEAN CORPUSCULAR VOLUME 85.8 fl (80.0-96.0); PLATELET COUNT, AUTOMATED 103 10^3/uL (150-450); RED BLOOD COUNT 3.67 10^6/uL (4.00-5.40); WHITE BLOOD COUNT 7.1 10^3/uL (4.0-10.0)
[2023-01-06 18:40] LABS: CALCIUM LEVEL 7.3 MG/DL (8.5-10.1); CREATININE FOR GFR 1.17 MG/DL (0.55-1.30); GLOMERULAR FILTRATION RATE 50.9 (>51); MAGNESIUM LEVEL 1.9 MG/DL (1.8-2.4); PHOSPHORUS LEVEL 2.3 MG/DL (2.5-4.9); POTASSIUM SERUM 3.8 MMOL/L (3.5-5.1)
[2023-01-06] MEDS: IPRATROPIUM 0.5MG/ALBUTEROL 2.5MG INH SOL UD 3ML (DUONEB) NEB SCH ×2 (19:07→23:26)
[2023-01-06] MEDS: MONTELUKAST 10 MG TAB PO SCH (20:33)
[2023-01-06] MEDS: LIDOCAINE 5% (LIDODERM) PATCH TD SCH (20:33)
[2023-01-06] MEDS ORDERED: SODIUM PHOSPHATE INJ 15 MMOL in D5W 500 ML IV ONE (21:00)
[2023-01-06] MEDS ORDERED: KCL 20MEQ IN 100ML SWI (KRUN) 20 MEQ in IV 1 EA IV ONE ×2 (21:00)
[2023-01-07] VITALS (104 sets, daily range): BP systolic 76–129; BP diastolic 49–93; TEMP 94.8–97.3; O2SAT 95–100
[2023-01-07] MEDS: NOREPINEPHRINE 4MG IN D5 250ML 4 MG in IV 1 EA IV SCH ×8 (00:25→19:15)
[2023-01-07] MEDS: PIPERACILLIN/TAZOBACTAM SOD 4.5 GM in D5W MINI-BAG PLUS 50 ML IV SCH ×3 (00:26→16:46)
[2023-01-07 00:45] LABS: BLOOD UREA NITROGEN 14 MG/DL (9-23); CALCIUM LEVEL 7.6 MG/DL (8.5-10.1); CARBON DIOXIDE LEVEL 22 MMOL/L (20-31); CHLORIDE LEVEL 100 MMOL/L (98-107); CREATININE FOR GFR 0.98 MG/DL (0.55-1.30); GLOMERULAR FILTRATION RATE > 60.0 (>51); GLUCOSE, FASTING 197 MG/DL (60-100); PHOSPHORUS LEVEL 2.4 MG/DL (2.5-4.9); POTASSIUM SERUM 3.7 MMOL/L (3.5-5.1); SODIUM LEVEL 133 MMOL/L (136-145)
[2023-01-07 00:53] LABS: HEMATOCRIT 29.2 % (36.0-47.0); HEMOGLOBIN 10.3 g/dl (12.0-15.5); MEAN CORPUSCULAR HGB CONC 35.3 g/dl (32.0-36.5); MEAN CORPUSCULAR VOLUME 85.1 fl (80.0-96.0); PLATELET COUNT, AUTOMATED 101 10^3/uL (150-450); RED BLOOD COUNT 3.43 10^6/uL (4.00-5.40); WHITE BLOOD COUNT 7.1 10^3/uL (4.0-10.0)
[2023-01-07] MEDS ORDERED: KCL 20MEQ IN 100ML SWI (KRUN) 20 MEQ in IV 1 EA IV ONE ×4 (02:00→07:10)
[2023-01-07] MEDS ORDERED: SODIUM PHOSPHATE INJ 15 MMOL in D5W 250 ML IV ONE (02:00)
[2023-01-07] MEDS: CALCIUM GLUCONATE 1,000 MG, VIAL MATE ADAPTER 1 EACH in NS 100 ML IV SCH ×2 (02:07→03:15)
[2023-01-07] MEDS: IPRATROPIUM 0.5MG/ALBUTEROL 2.5MG INH SOL UD 3ML (DUONEB) NEB SCH ×6 (03:11→23:10)
[2023-01-07] MEDS: HEPARIN 100 UNIT/ML *20ML* SYRINGE CRRT INFUSION CRRT SCH ×2 (04:15→09:13)
[2023-01-07] MEDS: LEVOTHYROXINE 25MCG TABLET (0.025MG) PO SCH (05:37)
[2023-01-07 05:58] LABS: ABG BASE EXCESS 0.9 (-2.0-2.0); ABG HCO3 22.6 MMOL/L (22.0-26.0); ABG O2 SATURATION 97.6 % (95.0-99.0); ABG PARTIAL PRESSURE CO2 26.7 mmHg (35.0-45.0); ABG PARTIAL PRESSURE O2 99.3 mmHg (75.0-100.0); ABG STANDARD HCO3 25.3 MMOL/L. (22.0-26.0); ABG TOTAL CO2 23.4 MMOL/L (22.0-29.0); ABG pH (ARTERIAL) 7.545 UNITS (7.350-7.450)
[2023-01-07 06:20] LABS: HEMOGLOBIN 9.2 g/dl (12.0-15.5); MEAN CORPUSCULAR HGB CONC 35.4 g/dl (32.0-36.5); MEAN CORPUSCULAR VOLUME 84.7 fl (80.0-96.0); RED BLOOD COUNT 3.07 10^6/uL (4.00-5.40); WHITE BLOOD COUNT 5.9 10^3/uL (4.0-10.0)
[2023-01-07 06:22] LABS: PLATELET COUNT, AUTOMATED 99 10^3/uL (150-450)
[2023-01-07 06:47] LABS: BLOOD UREA NITROGEN 11 MG/DL (9-23); CALCIUM LEVEL 7.8 MG/DL (8.5-10.1); CARBON DIOXIDE LEVEL 22 MMOL/L (20-31); CHLORIDE LEVEL 101 MMOL/L (98-107); CREATININE FOR GFR 0.82 MG/DL (0.55-1.30); GLOMERULAR FILTRATION RATE > 60.0 (>51); GLUCOSE, FASTING 167 MG/DL (60-100); POTASSIUM SERUM 3.9 MMOL/L (3.5-5.1); SODIUM LEVEL 134 MMOL/L (136-145)
[2023-01-07] MEDS: INSULIN LISPRO (NovoLOG) PER UNIT SC SCH ×3 (06:53→17:52)
[2023-01-07 07:07] LABS: PHOSPHORUS LEVEL 2.2 MG/DL (2.5-4.9)
[2023-01-07 07:31] LABS: BASOPHILS 2 % (0-1); EOSINOPHILS 5 % (0-3); LYMPHOCYTES 36 % (16-44); MONOCYTES 2 % (0-5); MYELOCYTES 1 % (0-0); NEUTROPHILS 51 % (28-66)
[2023-01-07 07:34] LABS: ANISOCYTOSIS 1+; PLATELET ESTIMATE DECREASED (NORMAL); POLYCHROMASIA 1+
[2023-01-07] MEDS: CALCIUM GLUCONATE 1,000 MG in D5W MINI-BAG PLUS 100 ML IV SCH ×4 (08:12→15:50)
[2023-01-07] MEDS ORDERED: SODIUM PHOSPHATE INJ 30 MMOL in D5W 500 ML IV ONE (09:00)
[2023-01-07] MEDS: PHENYTOIN 100MG/2ML VIAL IV SCH ×2 (09:29→21:47)
[2023-01-07] MEDS: FERROUS GLUCONATE 324 MG TAB PO SCH (09:30)
[2023-01-07] MEDS: FAMOTIDINE 20 MG TAB PO SCH ×2 (09:30→20:30)
[2023-01-07] MEDS: ATORVASTATIN 10 MG TAB PO SCH (09:30)
[2023-01-07] MEDS: allopurinoL 100 MG TAB PO SCH (09:30)
[2023-01-07] MEDS ORDERED: METOCLOPRAMIDE INJ 10MG/2ML VIAL IV ONE (10:35)
[2023-01-07 11:48] LABS: IONIZED CALCIUM 4.3 MG/DL (4.5-5.3)
[2023-01-07 11:51] LABS: HEMATOCRIT 25.9 % (36.0-47.0); MEAN CORPUSCULAR HEMOGLOBIN 30.1 pg (27.0-33.0); MEAN CORPUSCULAR HGB CONC 34.7 g/dl (32.0-36.5); MEAN CORPUSCULAR VOLUME 86.6 fl (80.0-96.0); RED BLOOD COUNT 2.99 10^6/uL (4.00-5.40); WHITE BLOOD COUNT 6.7 10^3/uL (4.0-10.0)
[2023-01-07 11:52] LABS: PLATELET COUNT, AUTOMATED 88 10^3/uL (150-450)
[2023-01-07] MEDS: AMIODARONE HCL 360 MG in IV 1 EA IV SCH (12:18)
[2023-01-07 12:23] LABS: BLOOD UREA NITROGEN 11 MG/DL (9-23); CALCIUM LEVEL 7.6 MG/DL (8.5-10.1); CARBON DIOXIDE LEVEL 24 MMOL/L (20-31); CHLORIDE LEVEL 102 MMOL/L (98-107); GLOMERULAR FILTRATION RATE > 60.0 (>51); GLUCOSE, FASTING 173 MG/DL (60-100); POTASSIUM SERUM 4.4 MMOL/L (3.5-5.1); SODIUM LEVEL 135 MMOL/L (136-145)
[2023-01-07] MEDS ORDERED: fentaNYL 100 MCG/2 ML INJECTION IV STA (12:53)
[2023-01-07] MEDS ORDERED: fentaNYL 100 MCG/2 ML INJECTION IV ONE (14:00)
[2023-01-07] MEDS ORDERED: VANCOMYCIN HCL 1,000 MG, VIAL MATE ADAPTER 1 EACH in D5W 250 ML IV ONE (14:00)
[2023-01-07] MEDS ORDERED: AMIODARONE 100MG TABLET (PACERONE) PO SCH ×2 (15:40→21:00)
[2023-01-07] MEDS ORDERED: AMIODARONE 100MG TABLET (PACERONE) PO ONE (16:00)
[2023-01-07 16:39] LABS: ABG HCO3 20.1 MMOL/L (22.0-26.0); ABG O2 SATURATION 96.9 % (95.0-99.0); ABG PARTIAL PRESSURE CO2 32.8 mmHg (35.0-45.0); ABG PARTIAL PRESSURE O2 97.6 mmHg (75.0-100.0); ABG STANDARD HCO3 21.1 MMOL/L. (22.0-26.0); ABG TOTAL CO2 21.1 MMOL/L (22.0-29.0); ABG pH (ARTERIAL) 7.405 UNITS (7.350-7.450)
[2023-01-07 17:12] LABS: IONIZED CALCIUM 4.6 MG/DL (4.5-5.3)
[2023-01-07] MEDS: HYDROCORTISONE 100MG/2ML VIAL IV SCH ×2 (17:12→21:50)
[2023-01-07 17:17] LABS: HEMATOCRIT 24.5 % (36.0-47.0); HEMOGLOBIN 8.4 g/dl (12.0-15.5); MEAN CORPUSCULAR HGB CONC 34.3 g/dl (32.0-36.5); MEAN CORPUSCULAR VOLUME 87.5 fl (80.0-96.0); WHITE BLOOD COUNT 6.7 10^3/uL (4.0-10.0)
[2023-01-07 17:21] LABS: PLATELET COUNT, AUTOMATED 88 10^3/uL (150-450)
[2023-01-07 17:41] LABS: BLOOD UREA NITROGEN 8 MG/DL (9-23); CALCIUM LEVEL 8.1 MG/DL (8.5-10.1); CALCIUM LEVEL 8.3 MG/DL (8.5-10.1); CARBON DIOXIDE LEVEL 23 MMOL/L (20-31); CHLORIDE LEVEL 102 MMOL/L (98-107); CREATININE FOR GFR 0.62 MG/DL (0.55-1.30); GLOMERULAR FILTRATION RATE > 60.0 (>51); GLUCOSE, FASTING 183 MG/DL (60-100); MAGNESIUM LEVEL 1.9 MG/DL (1.8-2.4); POTASSIUM SERUM 4.1 MMOL/L (3.5-5.1); SODIUM LEVEL 135 MMOL/L (136-145)
[2023-01-07] MEDS ORDERED: CALCIUM GLUCONATE 1,000 MG in D5W MINI-BAG PLUS 100 ML IV ONE (18:35)
[2023-01-07] MEDS ORDERED: MAG SULF 1GM/100ML (MAG RUN) 1 GM in IV 1 EA IV ONE (19:00)
[2023-01-07] MEDS: MONTELUKAST 10 MG TAB PO SCH (20:30)
[2023-01-07] MEDS: LIDOCAINE 5% (LIDODERM) PATCH TD SCH (21:00)
[2023-01-07] MEDS: VANCOMYCIN HCL 750 MG, VIAL MATE ADAPTER 1 EACH in D5W 250 ML IV SCH (21:51)
[2023-01-07] MEDS ORDERED: VANCOMYCIN HCL 1,000 MG, VIAL MATE ADAPTER 1 EACH in D5W 250 ML IV SCH (22:00)
[2023-01-07 23:44] LABS: HEMATOCRIT 24.8 % (36.0-47.0); HEMOGLOBIN 8.5 g/dl (12.0-15.5); MEAN CORPUSCULAR HGB CONC 34.3 g/dl (32.0-36.5); MEAN CORPUSCULAR VOLUME 87.6 fl (80.0-96.0); RED BLOOD COUNT 2.83 10^6/uL (4.00-5.40); WHITE BLOOD COUNT 6.4 10^3/uL (4.0-10.0)
[2023-01-07 23:52] LABS: PLATELET COUNT, AUTOMATED 79 10^3/uL (150-450)
[2023-01-08] VITALS (105 sets, daily range): BP systolic 70–312; BP diastolic 44–309; TEMP 93.3–95.2; O2SAT 92–100
[2023-01-08 00:19] LABS: BLOOD UREA NITROGEN 6 MG/DL (9-23); CALCIUM LEVEL 8.2 MG/DL (8.5-10.1); CARBON DIOXIDE LEVEL 23 MMOL/L (20-31); CHLORIDE LEVEL 101 MMOL/L (98-107); CREATININE FOR GFR 0.57 MG/DL (0.55-1.30); GLOMERULAR FILTRATION RATE > 60.0 (>51); GLUCOSE, FASTING 183 MG/DL (60-100); MAGNESIUM LEVEL 2.1 MG/DL (1.8-2.4); PHOSPHORUS LEVEL 2.5 MG/DL (2.5-4.9); POTASSIUM SERUM 4.3 MMOL/L (3.5-5.1); SODIUM LEVEL 134 MMOL/L (136-145)
[2023-01-08] MEDS ORDERED: AMIODARONE HCL 360 MG in IV 1 EA IV SCH (01:00)
[2023-01-08] MEDS ORDERED: CALCIUM GLUCONATE 1,000 MG in NS 100 ML IV ONE ×3 (01:00→18:40)
[2023-01-08] MEDS: HEPARIN 100 UNIT/ML *20ML* SYRINGE CRRT INFUSION CRRT SCH ×5 (01:15→22:59)
[2023-01-08] MEDS: PIPERACILLIN/TAZOBACTAM SOD 4.5 GM in D5W MINI-BAG PLUS 50 ML IV SCH ×4 (01:19→16:40)
[2023-01-08] MEDS: NOREPINEPHRINE 4MG IN D5 250ML 4 MG in IV 1 EA IV SCH ×6 (02:44→21:37)
[2023-01-08] MEDS: IPRATROPIUM 0.5MG/ALBUTEROL 2.5MG INH SOL UD 3ML (DUONEB) NEB SCH ×6 (03:19→23:52)
[2023-01-08] MEDS: HYDROCORTISONE 100MG/2ML VIAL IV SCH ×4 (03:40→21:15)
[2023-01-08] MEDS: LEVOTHYROXINE 25MCG TABLET (0.025MG) PO SCH (05:35)
[2023-01-08] MEDS: INSULIN LISPRO (NovoLOG) PER UNIT SC SCH ×4 (06:00→18:00)
[2023-01-08 06:10] LABS: HEMATOCRIT 25.5 % (36.0-47.0); HEMOGLOBIN 8.5 g/dl (12.0-15.5); MEAN CORPUSCULAR HEMOGLOBIN 29.4 pg (27.0-33.0); MEAN CORPUSCULAR HGB CONC 33.3 g/dl (32.0-36.5); MEAN CORPUSCULAR VOLUME 88.2 fl (80.0-96.0); RED BLOOD COUNT 2.89 10^6/uL (4.00-5.40); WHITE BLOOD COUNT 5.9 10^3/uL (4.0-10.0)
[2023-01-08 06:12] LABS: PLATELET COUNT, AUTOMATED 80 10^3/uL (150-450)
[2023-01-08 06:34] LABS: BLOOD UREA NITROGEN 5 MG/DL (9-23); CALCIUM LEVEL 8.4 MG/DL (8.5-10.1); CARBON DIOXIDE LEVEL 20 MMOL/L (20-31); CHLORIDE LEVEL 101 MMOL/L (98-107); CREATININE FOR GFR 0.54 MG/DL (0.55-1.30); GLOMERULAR FILTRATION RATE > 60.0 (>51); GLUCOSE, FASTING 156 MG/DL (60-100); MAGNESIUM LEVEL 2.2 MG/DL (1.8-2.4); PHOSPHORUS LEVEL 2.3 MG/DL (2.5-4.9); POTASSIUM SERUM 4.4 MMOL/L (3.5-5.1); SODIUM LEVEL 134 MMOL/L (136-145)
[2023-01-08 08:36] LABS: ABG BASE EXCESS -6.7 (-2.0-2.0); ABG HCO3 18.4 MMOL/L (22.0-26.0); ABG O2 SATURATION 90.5 % (95.0-99.0); ABG PARTIAL PRESSURE CO2 35.3 mmHg (35.0-45.0); ABG STANDARD HCO3 18.9 MMOL/L. (22.0-26.0); ABG TOTAL CO2 19.5 MMOL/L (22.0-29.0); ABG pH (ARTERIAL) 7.336 UNITS (7.350-7.450)
[2023-01-08] MEDS: FAMOTIDINE 20 MG TAB PO SCH ×2 (09:00→20:37)
[2023-01-08] MEDS ORDERED: SODIUM PHOSPHATE INJ 15 MMOL in D5W 250 ML IV ONE (09:00)
[2023-01-08] MEDS: ATORVASTATIN 10 MG TAB PO SCH (09:00)
[2023-01-08] MEDS: PHENYTOIN 100MG/2ML VIAL IV SCH ×2 (09:16→21:15)
[2023-01-08] MEDS: VANCOMYCIN HCL 750 MG, VIAL MATE ADAPTER 1 EACH in D5W 250 ML IV SCH (09:39)
[2023-01-08 12:22] LABS: IONIZED CALCIUM 4.6 MG/DL (4.5-5.3)
[2023-01-08 12:39] LABS: HEMATOCRIT 26.5 % (36.0-47.0); HEMOGLOBIN 8.7 g/dl (12.0-15.5); MEAN CORPUSCULAR HEMOGLOBIN 30.1 pg (27.0-33.0); MEAN CORPUSCULAR HGB CONC 32.8 g/dl (32.0-36.5); MEAN CORPUSCULAR VOLUME 91.7 fl (80.0-96.0); RED BLOOD COUNT 2.89 10^6/uL (4.00-5.40); WHITE BLOOD COUNT 7.2 10^3/uL (4.0-10.0)
[2023-01-08 12:52] LABS: PLATELET COUNT, AUTOMATED 64 10^3/uL (150-450)
[2023-01-08 12:57] LABS: BLOOD UREA NITROGEN 6 MG/DL (9-23); CALCIUM LEVEL 8.9 MG/DL (8.5-10.1); CARBON DIOXIDE LEVEL 16 MMOL/L (20-31); CHLORIDE LEVEL 99 MMOL/L (98-107); CREATININE FOR GFR 0.57 MG/DL (0.55-1.30); GLOMERULAR FILTRATION RATE > 60.0 (>51); GLUCOSE, FASTING 144 MG/DL (60-100); PHOSPHORUS LEVEL 3.3 MG/DL (2.5-4.9); POTASSIUM SERUM 4.3 MMOL/L (3.5-5.1); SODIUM LEVEL 133 MMOL/L (136-145)
[2023-01-08] MEDS ORDERED: CALCIUM GLUCONATE 1,000 MG, VIAL MATE ADAPTER 1 EACH in NS 100 ML IV ONE (15:00)
[2023-01-08 18:21] LABS: IONIZED CALCIUM 4.5 MG/DL (4.5-5.3)
[2023-01-08 18:30] LABS: HEMATOCRIT 25.5 % (36.0-47.0); HEMOGLOBIN 8.4 g/dl (12.0-15.5); MEAN CORPUSCULAR HEMOGLOBIN 30.5 pg (27.0-33.0); MEAN CORPUSCULAR HGB CONC 32.9 g/dl (32.0-36.5); MEAN CORPUSCULAR VOLUME 92.7 fl (80.0-96.0); RED BLOOD COUNT 2.75 10^6/uL (4.00-5.40); WHITE BLOOD COUNT 8.4 10^3/uL (4.0-10.0)
[2023-01-08 18:32] LABS: PLATELET COUNT, AUTOMATED 67 10^3/uL (150-450)
[2023-01-08 18:59] LABS: BLOOD UREA NITROGEN < 5 MG/DL (9-23); CALCIUM LEVEL 8.5 MG/DL (8.5-10.1); CARBON DIOXIDE LEVEL 15 MMOL/L (20-31); CHLORIDE LEVEL 100 MMOL/L (98-107); CREATININE FOR GFR 0.52 MG/DL (0.55-1.30); GLOMERULAR FILTRATION RATE > 60.0 (>51); GLUCOSE, FASTING 106 MG/DL (60-100); MAGNESIUM LEVEL 2.1 MG/DL (1.8-2.4); PHOSPHORUS LEVEL 3.2 MG/DL (2.5-4.9); POTASSIUM SERUM 4.3 MMOL/L (3.5-5.1); SODIUM LEVEL 136 MMOL/L (136-145)
[2023-01-08] MEDS: MONTELUKAST 10 MG TAB PO SCH (20:37)
[2023-01-08] MEDS: LIDOCAINE 5% (LIDODERM) PATCH TD SCH (21:25)
[2023-01-08 23:55] LABS: IONIZED CALCIUM 4.5 MG/DL (4.5-5.3)
[2023-01-09] VITALS (51 sets, daily range): BP systolic 85–136; BP diastolic 44–76; TEMP 93.4–96.6; O2SAT 91–100
[2023-01-09 00:01] LABS: HEMATOCRIT 26.2 % (36.0-47.0); HEMOGLOBIN 8.7 g/dl (12.0-15.5); MEAN CORPUSCULAR HEMOGLOBIN 30.5 pg (27.0-33.0); MEAN CORPUSCULAR HGB CONC 33.2 g/dl (32.0-36.5); MEAN CORPUSCULAR VOLUME 91.9 fl (80.0-96.0); RED BLOOD COUNT 2.85 10^6/uL (4.00-5.40); WHITE BLOOD COUNT 10.8 10^3/uL (4.0-10.0)
[2023-01-09 00:03] LABS: PLATELET COUNT, AUTOMATED 75 10^3/uL (150-450)
[2023-01-09] MEDS ORDERED: CALCIUM GLUCONATE 1,000 MG, VIAL MATE ADAPTER 1 EACH in NS 100 ML IV ONE ×2 (00:25→06:00)
[2023-01-09] MEDS: PIPERACILLIN/TAZOBACTAM SOD 4.5 GM in D5W MINI-BAG PLUS 50 ML IV SCH ×2 (00:32→10:24)
[2023-01-09 00:36] LABS: BLOOD UREA NITROGEN 6 MG/DL (9-23); CALCIUM LEVEL 8.5 MG/DL (8.5-10.1); CARBON DIOXIDE LEVEL 15 MMOL/L (20-31); CHLORIDE LEVEL 100 MMOL/L (98-107); CREATININE FOR GFR 0.49 MG/DL (0.55-1.30); GLOMERULAR FILTRATION RATE > 60.0 (>51); GLUCOSE, FASTING 70 MG/DL (60-100); MAGNESIUM LEVEL 2.1 MG/DL (1.8-2.4); PHOSPHORUS LEVEL 3.1 MG/DL (2.5-4.9); POTASSIUM SERUM 4.5 MMOL/L (3.5-5.1); SODIUM LEVEL 135 MMOL/L (136-145)
[2023-01-09] MEDS: HYDROCORTISONE 100MG/2ML VIAL IV SCH ×2 (03:44→10:25)
[2023-01-09] MEDS: IPRATROPIUM 0.5MG/ALBUTEROL 2.5MG INH SOL UD 3ML (DUONEB) NEB SCH ×2 (03:47→07:16)
[2023-01-09] MEDS: HEPARIN 100 UNIT/ML *20ML* SYRINGE CRRT INFUSION CRRT SCH (04:18)
[2023-01-09 05:35] LABS: IONIZED CALCIUM 4.5 MG/DL (4.5-5.3)
[2023-01-09] MEDS: LEVOTHYROXINE 25MCG TABLET (0.025MG) PO SCH (05:40)
[2023-01-09] MEDS: NOREPINEPHRINE 4MG IN D5 250ML 4 MG in IV 1 EA IV SCH ×2 (05:43)
[2023-01-09 05:44] LABS: HEMATOCRIT 26.4 % (36.0-47.0); HEMOGLOBIN 8.8 g/dl (12.0-15.5); MEAN CORPUSCULAR HEMOGLOBIN 30.4 pg (27.0-33.0); MEAN CORPUSCULAR HGB CONC 33.3 g/dl (32.0-36.5); MEAN CORPUSCULAR VOLUME 91.3 fl (80.0-96.0); RED BLOOD COUNT 2.89 10^6/uL (4.00-5.40); WHITE BLOOD COUNT 13.1 10^3/uL (4.0-10.0)
[2023-01-09 05:47] LABS: PLATELET COUNT, AUTOMATED 89 10^3/uL (150-450)
[2023-01-09] MEDS: INSULIN LISPRO (NovoLOG) PER UNIT SC SCH ×3 (06:00→12:00)
[2023-01-09 06:04] LABS: BLOOD UREA NITROGEN < 5 MG/DL (9-23); CALCIUM LEVEL 8.3 MG/DL (8.5-10.1); CARBON DIOXIDE LEVEL 17 MMOL/L (20-31); CHLORIDE LEVEL 102 MMOL/L (98-107); CREATININE FOR GFR 0.48 MG/DL (0.55-1.30); GLOMERULAR FILTRATION RATE > 60.0 (>51); GLUCOSE, FASTING 62 MG/DL (60-100); MAGNESIUM LEVEL 2.1 MG/DL (1.8-2.4); PHOSPHORUS LEVEL 2.9 MG/DL (2.5-4.9); POTASSIUM SERUM 4.3 MMOL/L (3.5-5.1); SODIUM LEVEL 137 MMOL/L (136-145)
[2023-01-09] MEDS ORDERED: DEXTROSE 50% 50ML SYRINGE IV STA (07:33)
[2023-01-09] MEDS: FAMOTIDINE 20 MG TAB PO SCH (08:28)
[2023-01-09] MEDS: ATORVASTATIN 10 MG TAB PO SCH (08:28)
[2023-01-09 10:17] LABS: ABG BASE EXCESS -10.9 (-2.0-2.0); ABG HCO3 14.3 MMOL/L (22.0-26.0); ABG O2 SATURATION 94.6 % (95.0-99.0); ABG PARTIAL PRESSURE CO2 29.3 mmHg (35.0-45.0); ABG PARTIAL PRESSURE O2 80.6 mmHg (75.0-100.0); ABG STANDARD HCO3 15.7 MMOL/L. (22.0-26.0); ABG TOTAL CO2 15.2 MMOL/L (22.0-29.0); ABG pH (ARTERIAL) 7.305 UNITS (7.350-7.450)
[2023-01-09] MEDS: GASTROGRAFIN SOLUTION 30ML PO SCH ×2 (10:25→11:03)
[2023-01-09] MEDS: PHENYTOIN 100MG/2ML VIAL IV SCH (10:25)
[2023-01-09] MEDS ORDERED: ISOVUE-370 76% 100ML VIAL As Ordered ONE (12:02)
[2023-01-09] MEDS ORDERED: ATROPINE SULF 1MG/10ML SYRINGE IV STA (12:16)
[2023-01-09] MEDS ORDERED: ATROPINE SULF 1MG/10ML SYRINGE As Ordered ONE (12:18)
[2023-01-09] MEDS ORDERED: EPINEPHrine 1MG/10ML SYRINGE 1.5IN IV STA ×3 (12:18→12:22)
[2023-01-09] MEDS ORDERED: SODIUM BICARBONATE 8.4% INJ 50ML SYRINGE IV STA ×2 (12:20→12:24)
[2023-01-09] MEDS ORDERED: VASOPRESSIN INJ 20UNITS/ML 1ML VIAL As Ordered ONE (12:23)
[2023-01-09] MEDS ORDERED: MORPHINE 4 MG/ML 1ML VIAL As Ordered ONE (12:26)
[2023-01-09] MEDS ORDERED: MORPHINE 10 MG/ML 1ML VIAL IV ONE (12:27)
[2023-01-09] MEDS ORDERED: MORPHINE 10 MG/ML 1ML VIAL IV PRN (12:35)
[2023-01-11 13:08] LABS: PHENYTOIN,FREE 1.1 ug/mL (1.0-2.0); PHENYTOIN,TOTAL 9.2 ug/mL (10.0-20.0)
== END 2023-01-09 12:38 | disposition expired | DRG 710 ==
LOC: M ED 06:20 → M ED INP 09:36 → ENRESERV 12:52 → M PCU 14:19 → M ICU 01-04 11:21
PROVIDERS: ADMIT General Practice; ATTEND Internal Medicine
PROC: 0YB Anatomical Regions, Lower Extremities, Excision (ICD-10-PCS; 2023-01-03)
PROC: 0Y6H0Z1 Detachment at Right Lower Leg, High, Open Approach (ICD-10-PCS; 2023-01-05)
PROC: 30233N1 Transfusion of Nonautologous Red Blood Cells into Peripheral Vein, Percutaneous Approach (ICD-10-PCS; principal; 2023-01-05 14:30)
PROC: 30233J1 Transfusion of Nonautologous Serum Albumin into Peripheral Vein, Percutaneous Approach (ICD-10-PCS; 2023-01-06)
PROC: 5A1945Z Respiratory Ventilation, 24-96 Consecutive Hours (ICD-10-PCS; 2023-01-06)
PROC: 02HV33Z Insertion of Infusion Device into Superior Vena Cava, Percutaneous Approach (ICD-10-PCS; 2023-01-06)
PROC: 03HY32Z Insertion of Monitoring Device into Upper Artery, Percutaneous Approach (ICD-10-PCS; 2023-01-06)
PROC: 0BH17EZ Insertion of Endotracheal Airway into Trachea, Via Natural or Artificial Opening (ICD-10-PCS; 2023-01-06)
DX: A41.9 Sepsis, unspecified organism (principal); I21.4 Non-ST elevation (NSTEMI) myocardial infarction; J96.01 Acute respiratory failure with hypoxia; I50.43 Acute on chronic combined systolic (congestive) and diastolic (congestive) heart failure; N18.4 Chronic kidney disease, stage 4 (severe); R65.21 Severe sepsis with septic shock; N17.9 Acute kidney failure, unspecified; I42.9 Cardiomyopathy, unspecified; A48.0 Gas gangrene; E87.20 Acidosis, unspecified; E11.621 Type 2 diabetes mellitus with foot ulcer; E11.42 Type 2 diabetes mellitus with diabetic polyneuropathy; E11.21 Type 2 diabetes mellitus with diabetic nephropathy; E11.22 Type 2 diabetes mellitus with diabetic chronic kidney disease; I13.0 Hypertensive heart and chronic kidney disease with heart failure and stage 1 through stage 4 chronic kidney disease, or unspecified chronic kidney disease; E11.52 Type 2 diabetes mellitus with diabetic peripheral angiopathy with gangrene; L97.419 Non-pressure chronic ulcer of right heel and midfoot with unspecified severity; L97.519 Non-pressure chronic ulcer of other part of right foot with unspecified severity; J44.9 Chronic obstructive pulmonary disease, unspecified; E87.1 Hypo-osmolality and hyponatremia; B96.20 Unspecified Escherichia coli [E. coli] as the cause of diseases classified elsewhere; M54.9 Dorsalgia, unspecified; G89.29 Other chronic pain; F39 Unspecified mood [affective] disorder; E55.9 Vitamin D deficiency, unspecified; E78.5 Hyperlipidemia, unspecified; D63.1 Anemia in chronic kidney disease; E03.9 Hypothyroidism, unspecified; H40.9 Unspecified glaucoma; F17.210 Nicotine dependence, cigarettes, uncomplicated; Z66 Do not resuscitate; Z79.82 Long term (current) use of aspirin; Z79.4 Long term (current) use of insulin; Z79.890 Hormone replacement therapy; Z79.899 Other long term (current) drug therapy; Z88.2 Allergy status to sulfonamides; Z88.8 Allergy status to other drugs, medicaments and biological substances; Z91.048 Other nonmedicinal substance allergy status; Z20.822 Contact with and (suspected) exposure to COVID-19; Z89.422 Acquired absence of other left toe(s); I25.10 Atherosclerotic heart disease of native coronary artery without angina pectoris; I73.9 Peripheral vascular disease, unspecified; J45.909 Unspecified asthma, uncomplicated; L03.90 Cellulitis, unspecified; E66.9 Obesity, unspecified; B96.4 Proteus (mirabilis) (morganii) as the cause of diseases classified elsewhere